=== PATIENT | female | born 1950 | race Caucasian/White ===

== ENCOUNTER 2016-06-07 03:24 | Inpatient (IN) | payer MEDICARE, OTHER ==
[2016-06-07] MEDS ORDERED: ONDANSETRON 4 MG/2 ML VIAL IVP STA (03:43)
[2016-06-07] MEDS ORDERED: SODIUM CHLORIDE 0.9% 500 ML IV STA ×2 (03:56→05:47)
[2016-06-07] MEDS ORDERED: MORPHINE SULFATE 4 MG/ML SYRINGE IV STA (03:56)
[2016-06-07] MEDS ORDERED: SODIUM CHLORIDE 0.9% 1,000 ML IV STA ×2 (03:56→05:47)
--- NOTE | 2016-06-07 04:13 | ED ---
General Adult HPI - General Chief complaint: Weakness Stated complaint: Abdominal Pain Time Seen by Provider: 06/07/16 03:40 Source: patient, RN notes reviewed, old records reviewed Mode of arrival: EMS Limitations: no limitations - History of Present Illness Initial comments: This is a 65-year-old female here for evaluation. Patient brought in by family for copious diarrhea. Patient started with significant diarrhea beginning tonight and significantly worsening. Patient was recently admitted to the hospital for pneumonia. At home and doing well, patient sore from dementia and has 2 caregivers, as well as her sister who is at bedside who is her medical decision maker. Patient herself denies any complaints no bowel pain no nausea vomiting. Is complaining of weakness not feeling well and diarrhea. - Related Data Home Medications Medication Instructions Recorded Confirmed Albuterol Sulfate [Proair Hfa] 2 puff INHALATION DIRECTED PRN 06/24/14 Loratadine [Claritin] 10 mg PO DAILY 06/24/14 03/23/16 Montelukast [Singulair] 10 mg PO HS 06/24/14 03/23/16 Omeprazole [PriLOSEC] 20 mg PO HS 06/24/14 03/23/16 Sertraline [Zoloft] 200 mg PO QAM 06/24/14 03/23/16 risperiDONE [RisperDAL] 2 mg PO HS 06/24/14 03/23/16 Donepezil [Aricept] 10 mg PO QAM 02/07/15 03/23/16 glipiZIDE [Glucotrol] 5 mg PO AC-BRKFST 02/07/15 03/23/16 Namenda Xr 1 dose PO QAM 03/21/16 03/23/16 traMADol HCL [Ultram] 50 mg PO BID 03/21/16 03/23/16 Allergies Allergy/AdvReac Type Severity Reaction Status Date / Time baclofen Allergy Unknown Psychotic Verified 06/07/16 03:45 Episode codeine Allergy Rash/Hives Verified 06/07/16 03:45 lorazepam [From Ativan] Allergy Rash/Hives Verified 06/07/16 03:45 oxaprozin [From Daypro] Allergy Rash/Hives Verified 06/07/16 03:45 Sulfa (Sulfonamide Allergy Rash/Hives Verified 06/07/16 03:45 Antibiotics) cyclobenzaprine HCl AdvReac Confusion Verified 06/07/16 03:45 [From Flexeril] Review of Systems ROS Statement: Those systems with pertinent positive or pertinent negative responses have been documented in the HPI. ROS Other: All systems not noted in ROS Statement are negative. Past Medical History Past Medical History: Asthma, Heart Failure, COPD, Dementia, Diabetes Mellitus, Deep Vein Thrombosis (DVT), GERD/Reflux, Osteoarthritis (OA), Pneumonia, Seizure Disorder, Sleep Apnea/CPAP/BIPAP Additional Past Medical History / Comment(s): diverticulosis, sleep apnea HAS CPAP,MURMUR, SEIZURES IN THE 1970'S(EPILEPSY) NO SEIZURES SINCE THE S NOT ON MEDS FOR IT ANYMORE, IBS. PAD. History of Any Multi-Drug Resistant Organisms: None Reported Past Surgical History: Adenoidectomy, Appendectomy, Bowel Resection, Cholecystectomy, Hysterectomy, Orthopedic Surgery, Tonsillectomy Additional Past Surgical History / Comment(s): partial colon resection,SILVERIO KNEE ARTHROSCOPY,SILVERIO KNEE REPLACEMENTS Past Anesthesia/Blood Transfusion Reactions: Previous Problems w/ Anesthesia, Motion Sickness Additional Past Anesthesia/Blood Transfusion Reaction / Comment(s): DIFFICULTY WAKING UP. CLAUSTERPHOBIC Past Psychological History: Anxiety, Bipolar Additional Psychological History / Comment(s): DYSLEXIA Smoking Status: Former smoker Past Alcohol Use History: None Reported Additional Past Alcohol Use History / Comment(s): STARTED SMOKNG AT AGE 16, SMOKED 1 CIG PER DAY QUIT 1982 Past Drug Use History: None Reported - Past Family History Father Family Medical History: Unable to Obtain Mother Family Medical History: Congestive Heart Failure (CHF), Dementia, Myocardial Infarction ([place]) General Exam Limitations: no limitations General appearance: alert, lethargic, in distress, obese Head exam: Present: atraumatic, normocephalic, normal inspection Eye exam: Present: normal appearance, PERRL, EOMI. Absent: scleral icterus, conjunctival injection, periorbital swelling ENT exam: Present: normal exam, mucous membranes moist Neck exam: Present: normal inspection. Absent: tenderness, meningismus, lymphadenopathy Respiratory exam: Present: normal lung sounds bilaterally. Absent: respiratory distress, wheezes, rales, rhonchi, stridor Cardiovascular Exam: Present: regular rate, normal rhythm, normal heart sounds. Absent: systolic murmur, diastolic murmur, rubs, gallop, clicks GI/Abdominal exam: Present: soft, normal bowel sounds. Absent: distended, tenderness, guarding, rebound, rigid Extremities exam: Present: normal inspection, full ROM, normal capillary refill. Absent: tenderness, pedal edema, joint swelling, calf tenderness Back exam: Present: normal inspection Neurological exam: Present: alert, oriented X3, CN II-XII intact Psychiatric exam: Present: normal affect, normal mood Skin exam: Present: warm, dry, intact, normal color. Absent: rash Course Vital Signs 06/07/16 03:41 Temperature 98.6 F Pulse Rate 68 Respiratory 16 Rate Blood Pressure 92/54 O2 Sat by Pulse 97 Oximetry - Reevaluation(s) Reevaluation #1: 06/07/16 05:49 Patient having copious diarrhea Reevaluation #2: 06/07/16 05:49 Patient denies any complaints of pain no shortness of breath or chest pain EKG Findings - EKG Comments: EKG Findings:: EKG shows normal sinus rhythm rate of 79, [place] 154, QRS 72, QTC 428 Medical Decision Making - Medical Decision Making 65 female here for evaluation of copious diarrhea, currently negative for C. diff. Patient with significant diarrhea here in the emergency room, weakness. Patient will be admitted regarding probable sepsis, started on broad-spectrum antibiotics for continued evaluation - Lab Data Result diagrams: 06/07/16 05:21 06/07/16 05:21 Lab Results 06/07/16 06/07/16 06/07/16 Range/Units 04:11 05:21 05:21 WBC 19.0 H (3.8-10.6) k/uL RBC 5.31 (3.80-5.40) m/uL Hgb 15.7 (11.4-16.0) gm/dL Hct 48.6 H (34.0-46.0) % MCV 91.5 (80.0-100.0) fL MCH 29.6 (25.0-35.0) pg MCHC 32.3 (31.0-37.0) g/dL RDW 12.7 (11.5-15.5) % Plt Count 159 (150-450) k/uL Neutrophils % (Manual) 81.0 % Band Neutrophils % 8.0 % Lymphocytes % (Manual) 4.0 % Monocytes % (Manual) 4.0 % Eosinophils % (Manual) 3.0 % Neutrophils # (Manual) 16.9 H (1.3-7.7) k/uL Lymphocytes # (Manual) 0.8 L (1.0-4.8) k/uL Monocytes # (Manual) 0.8 (0-1.0) k/uL Eosinophils # (Manual) 0.6 (0-0.7) k/uL Nucleated RBCs 0 (0-0) /100 WBC Manual Slide Review Performed PT (9.0-12.0) sec INR (<1.1) APTT (22.0-30.0) sec Sodium 143 (137-145) mmol/L Potassium 3.7 (3.5-5.1) mmol/L Chloride 110 H (98-107) mmol/L Carbon Dioxide 21 L (22-30) mmol/L Anion Gap 12 mmol/L BUN 14 (7-17) mg/dL Creatinine 0.90 (0.52-1.04) mg/dL Est GFR (MDRD) Af Amer >60 (>60 ml/min/1.73 sqM) Est GFR (MDRD) Non-Af >60 (>60 ml/min/1.73 sqM) Glucose 144 H (74-99) mg/dL Plasma Lactic Acid Artie (0.7-2.0) mmol/L Calcium 8.4 (8.4-10.2) mg/dL Phosphorus 3.9 (2.5-4.5) mg/dL Magnesium 1.6 (1.6-2.3) mg/dL Total Bilirubin 0.3 (0.2-1.3) mg/dL AST 21 (14-36) U/L ALT 38 (9-52) U/L Alkaline Phosphatase 145 H (38-126) U/L Total Creatine Kinase (30-135) U/L CK-MB (CK-2) (0.0-2.4) ng/mL CK-MB (CK-2) Rel Index Troponin I (0.000-0.034) ng/mL Total Protein 6.0 L (6.3-8.2) g/dL Albumin 3.5 (3.5-5.0) g/dL C. difficile (EIA) Intrp Negative (Negative) 06/07/16 06/07/16 06/07/16 Range/Units 05:30 05:30 05:30 WBC (3.8-10.6) k/uL RBC (3.80-5.40) m/uL Hgb (11.4-16.0) gm/dL Hct (34.0-46.0) % MCV (80.0-100.0) fL MCH (25.0-35.0) pg MCHC (31.0-37.0) g/dL RDW (11.5-15.5) % Plt Count (150-450) k/uL Neutrophils % (Manual) % Band Neutrophils % % Lymphocytes % (Manual) % Monocytes % (Manual) % Eosinophils % (Manual) % Neutrophils # (Manual) (1.3-7.7) k/uL Lymphocytes # (Manual) (1.0-4.8) k/uL Monocytes # (Manual) (0-1.0) k/uL Eosinophils # (Manual) (0-0.7) k/uL Nucleated RBCs (0-0) /100 WBC Manual Slide Review PT 10.3 (9.0-12.0) sec INR 1.0 (<1.1) APTT 26.1 (22.0-30.0) sec Sodium (137-145) mmol/L Potassium (3.5-5.1) mmol/L Chloride (98-107) mmol/L Carbon Dioxide (22-30) mmol/L Anion Gap mmol/L BUN (7-17) mg/dL Creatinine (0.52-1.04) mg/dL Est GFR (MDRD) Af Amer (>60 ml/min/1.73 sqM) Est GFR (MDRD) Non-Af (>60 ml/min/1.73 sqM) Glucose (74-99) mg/dL Plasma Lactic Acid Artie 0.8 (0.7-2.0) mmol/L Calcium (8.4-10.2) mg/dL Phosphorus (2.5-4.5) mg/dL Magnesium (1.6-2.3) mg/dL Total Bilirubin (0.2-1.3) mg/dL AST (14-36) U/L ALT (9-52) U/L Alkaline Phosphatase (38-126) U/L Total Creatine Kinase 50 (30-135) U/L CK-MB (CK-2) 0.9 (0.0-2.4) ng/mL CK-MB (CK-2) Rel Index 1.8 Troponin I <0.012 (0.000-0.034) ng/mL Total Protein (6.3-8.2) g/dL Albumin (3.5-5.0) g/dL C. difficile (EIA) Intrp (Negative) - Radiology Data Radiology results: report reviewed (X-ray abdominal series with chest is pending ), image reviewed Critical Care Time Critical Care Time: Yes Total Critical Care Time: 31 Disposition Clinical Impression: Altered mental status, Dehydration, Diarrhea, Sepsis Disposition: ADMITTED IP TO THIS [facility] Condition: Serious Referrals: Jerry Golden DO [Primary Care Provider] - 1-2 days
[2016-06-07 05:29] LABS: CH 29.1; CHCM 31.9; HCT 48.6 % (34.0-46.0); HDW 2.46; HGB 15.7 gm/dL (11.4-16.0); Immature Gran Flag Slight; MCH 29.6 pg (25.0-35.0); MCHC 32.3 g/dL (31.0-37.0); MCV 91.5 fL (80.0-100.0); Mean Platelet Volume 6.8; RBC 5.31 m/uL (3.80-5.40); RDW 12.7 % (11.5-15.5); WBC (Perox) 19.43
[2016-06-07 05:41] LABS: Add Differential Manual Differential
[2016-06-07 05:43] LABS: Nucleated Red Blood Cells 0 /100 WBC (0-0); Total Cells Counted 100
[2016-06-07 05:44] LABS: Manual Review Performed
[2016-06-07] MEDS ORDERED: IV VANCOMYCIN PER PHARMACY 1 EACH MISC MISCELLANE PRN ×2 (05:47→06:38)
[2016-06-07] MEDS ORDERED: PIPERACILLIN-TAZOBACTAM 3.375 GM in DEXTROSE/WATER 1 50ML.BAG IVPB STA (05:47)
[2016-06-07] MEDS ORDERED: SODIUM CHLORIDE 0.9% 2,000 ML IV STA (05:47)
[2016-06-07 05:51] LABS: Partial Thromboplastin Time 26.1 sec (22.0-30.0); Prothrombin Time 10.3 sec (9.0-12.0)
[2016-06-07 05:54] LABS: ALT 38 U/L (9-52); AST 21 U/L (14-36); Alkaline Phosphatase 145 U/L (38-126); Anion Gap 12 mmol/L; Blood Urea Nitrogen 14 mg/dL (7-17); Calcium 8.4 mg/dL (8.4-10.2); Carbon Dioxide 21 mmol/L (22-30); Chloride 110 mmol/L (98-107); Glucose 144 mg/dL (74-99); Magnesium 1.6 mg/dL (1.6-2.3); Non-African American GFR(MDRD) >60 (>60 ml/min/1.73 sqM); Phosphorous 3.9 mg/dL (2.5-4.5); Potassium 3.7 mmol/L (3.5-5.1); Sodium 143 mmol/L (137-145); Total Bilirubin 0.3 mg/dL (0.2-1.3)
[2016-06-07 06:05] LABS: Creatine Kinase 50 U/L (30-135)
[2016-06-07] MEDS ORDERED: VANCOMYCIN 1,500 MG in SODIUM CHLORIDE 0.9% 250 ML IVPB STA (06:16)
[2016-06-07 06:18] LABS: Creatine Kinase MB 0.9 ng/mL (0.0-2.4); Troponin I <0.012 ng/mL (0.000-0.034)
--- NOTE | 2016-06-07 06:54 | XR ---
EXAMINATION TYPE: XR abdomen acute w cxr DATE OF EXAM: 06/07/2016 6:39 AM COMPARISON: Chest x-rays 02/07/2015 HISTORY: Pain vomiting diarrhea TECHNIQUE: Single view of the chest and 2 views of the abdomen are submitted. FINDINGS: Single frontal view of the chest is revealed mild pulmonary vascular congestion. Chronic lung changes are suggested. No focal pneumonia pneumothorax or pleural effusion is noted. There is mild cardiomeg josefa. 2 radiographs of abdomen in upright and supine position showed no definite pneumoperitoneum. There is moderate gaseous distention of bowel loops in the abdomen and pelvis. Surgical clips are not ed superimposing the abdomen and pelvis with a hernia surgery changes. No unusual calcifications. IMPRESSION: 1. No active lung infiltrates. There is mild pulmonary vascular congestion. 2. No significant bowel obstruction is noted.
[2016-06-07 07:28] LABS: Appearance,Urine Clear (Clear); Bilirubin,Urine Negative (Negative); Glucose,Urine (UA) Negative (Negative); Ketones,Urine Negative (Negative); Leukocyte Esterase,Urine Negative (Negative); Nitrite,Urine Negative (Negative); Protein,Urine Negative (Negative); Specific Gravity,Urine 1.004 (1.001-1.035); UA Billing (MACRO vs. MICRO) CHEM; Urobilinogen,Urine <2.0 mg/dL (<2.0)
[2016-06-07] MEDS ORDERED: ALBUTEROL NEBULIZED 2.5 MG/3 ML INHALATION PRN (08:35)
[2016-06-07] MEDS: SODIUM CHLORIDE 0.9% 1,000 ML IV SCH ×3 (10:33→17:04)
[2016-06-07] MEDS: DONEPEZIL 10 MG TAB PO SCH (10:34)
[2016-06-07] MEDS: ENOXAPARIN 40 MG/0.4 ML SYRINGE SQ SCH (10:35)
[2016-06-07] MEDS: PANTOPRAZOLE 40 MG/10 ML VIAL IV SCH (10:35)
[2016-06-07] MEDS: MEMANTINE 10 MG TAB PO SCH ×2 (10:35→20:18)
[2016-06-07] MEDS: SERTRALINE 100 MG TAB PO SCH (10:35)
[2016-06-07] MEDS: traMADol 50 MG TAB PO SCH ×2 (10:49→20:18)
[2016-06-07 12:35] LABS: Glucose,Whole Blood 98 mg/dL (75-99)
--- NOTE | 2016-06-07 14:07 | P.HPIM ---
History of Present Illness H&P Date: 06/07/16 Chief Complaint: Diarrhea Patient is a 65-year-old female, patient of Dr. Jerry Golden in the outpatient setting with complex medical history noted below significant for recent pneumonia. Patient does have a history of dementia and is a questionable historian. Patient presented to the emergency department with complaints of copious amounts of diarrhea 1 day and evidence of dehydration. Patient states that she was going to the bathroom when she passed out. Patient denies recent chills, fevers, nausea, vomiting, shortness of breath, chest pain , or abdominal pain. Patient denies change in diet or new medications. Abdominal x-ray with chest x-ray shows mild pulmonary vascular congestion with no active lung infiltrate; no significant bowel obstruction. Labs on admission : WBC 19, hematocrit 48.6, C. difficile negative. Admission vitals temperature 98.6, heart rate 68, respiratory rate 16, blood pressure 92/54, oxygen saturation 97% on room air. In the emergency department, patient was fluid resuscitated with 4 L of normal saline, started on IV antibiotics for empiric coverage, and admitted to the general medical floor. Upon examination, patient is lying in bed. Patient states she is tired. Denies chills, fevers, shortness of breath, chest pain, or abdominal pain. Patient complains of rectal discomfort from fecal management system. An indwelling Casarez catheter has been inserted with adequate urine output. Blood pressure this morning 128/ 60. Past Medical History Past Medical History: Asthma, Heart Failure, COPD, Dementia, Diabetes Mellitus, Deep Vein Thrombosis (DVT), GERD/Reflux, Hyperlipidemia, Myocardial Infarction ( [place]), Osteoarthritis (OA), Pneumonia, Renal Disease, Seizure Disorder, Sleep Apnea/CPAP/BIPAP, Vascular Disorder Additional Past Medical History / Comment(s): Recent pneumonia and past pneumonia, diverticulosis, sleep apnea HAS CPAP,MURMUR, SEIZURES IN THE 1969'S( EPILEPSY) NO SEIZURES SINCE 1974- NOT ON MEDS FOR IT ANYMORE, IBS, PAD, TMJ, anemia, nephrolithiasis, stomach ulcer, ESTEFANY-has CPAP but pulls off at times, as child has needle in her head. Last Myocardial Infarction Date:: 1991 History of Any Multi-Drug Resistant Organisms: None Reported Past Surgical History: Adenoidectomy, Appendectomy, Bowel Resection, Cholecystectomy, Hernia Repair, Hysterectomy, Orthopedic Surgery, Tonsillectomy Additional Past Surgical History / Comment(s): partial colon resection with colostomy then reversal, SILVERIO KNEE ARTHROSCOPY,Right KNEE REPLACEMENT, EGDs and colonoscopies, lipomas off back, cyst off spine. Past Anesthesia/Blood Transfusion Reactions: Previous Problems w/ Anesthesia, Motion Sickness Additional Past Anesthesia/Blood Transfusion Reaction / Comment(s): DIFFICULTY WAKING UP. CLAUSTERPHOBIC Past Psychological History: Anxiety, Bipolar Additional Psychological History / Comment(s): DYSLEXIA but is able to read and write with some difficulty. Pt resides with her sisters, Reny who is also her legal guardian and Michelle. They are her caretakers. Pt uses a walker to ambulate. She does not drive, Michelle takes her to [employer]. Smoking Status: Former smoker Past Alcohol Use History: None Reported Additional Past Alcohol Use History / Comment(s): STARTED SMOKNG AT AGE 16, SMOKED 1 CIG PER DAY QUIT 1982 Past Drug Use History: None Reported - Past Family History Father Family Medical History: Cancer Additional Family Medical History / Comment(s): Father had lung cancer. Mother Family Medical History: Congestive Heart Failure (CHF), Dementia, Myocardial Infarction ([place]) Medications and Allergies Home Medications Medication Instructions Recorded Confirmed Type Albuterol Sulfate [Proair Hfa] 2 puff INHALATION RT-Q4H PRN 06/24/14 06/07/16 History Sertraline [Zoloft] 200 mg PO QAM 06/24/14 06/07/16 History risperiDONE [RisperDAL] 2 mg PO HS 06/24/14 06/07/16 History Donepezil [Aricept] 10 mg PO QAM 02/07/15 06/07/16 History traMADol HCL [Ultram] 50 mg PO BID 03/21/16 06/07/16 History Atorvastatin [Lipitor] 10 mg PO HS 06/07/16 06/07/16 History Ibuprofen [Motrin] 800 mg PO Q8HR PRN 06/07/16 06/07/16 History Memantine HCl [Namenda Xr] 28 mg PO DAILY 06/07/16 06/07/16 History Mirtazapine [Remeron] 15 mg PO HS 06/07/16 06/07/16 History Allergies Allergy/AdvReac Type Severity Reaction Status Date / Time baclofen Allergy Unknown Psychotic Verified 06/07/16 03:45 Episode codeine Allergy Rash/Hives Verified 06/07/16 03:45 lorazepam [From Ativan] Allergy Rash/Hives Verified 06/07/16 03:45 oxaprozin [From Daypro] Allergy Rash/Hives Verified 06/07/16 03:45 Sulfa (Sulfonamide Allergy Rash/Hives Verified 06/07/16 03:45 Antibiotics) cyclobenzaprine HCl AdvReac Confusion Verified 06/07/16 03:45 [From Flexeril] Physical Exam Vitals: Vital Signs Temp Pulse Resp BP Pulse Ox 06/07/16 08:29 98.7 F 83 20 128/60 95 Intake and Output 06/06/16 06/07/16 06/07/16 22:59 06:59 14:59 Output Total 900 Balance -900 Output: Urine 900 Uretheral (Casarez) 500 Other: Voiding Method Indwelling Catheter GENERAL: Pt awake and alert, well-nourished, and in no acute distress. HEAD: Atraumatic, normocephalic. EYES: Pupils equal and round. Sclera anicteric, conjunctiva are normal. ENT: Moist mucous membranes. NECK:Supple without lymphadenopathy or JVD. LUNGS: Breath sounds clear to auscultation bilaterally. No wheezes, rales, or rhonchi. HEART: Heart S1, S2, no S3 or S4. Regular rate and rhythm. No murmurs, rubs or gallops. ABDOMEN: Soft, obese, nontender, nondistended, normoactive bowel sounds. No guarding, no rebound. No masses or organomegaly appreciated. EXTREMITIES: 2+ peripheral pulses. No edema. No calf tenderness. NEUROLOGICAL: Pt oriented x 3. Cranial nerves II through XII grossly intact. Strength and sensation grossly intact. PSYCH: Normal mood, normal affect. SKIN: Warm, dry, intact. Normal turgor. No rashes or lesions. Results CBC & Chem 7: 06/07/16 05:21 06/07/16 05:21 Labs: Microbiology - Last 24 Hours (Table) 06/07/16 07:10 Urine Culture - Preliminary Urine,Catheterized Thrombosis Risk Factor Assmnt - DVT/VTE Prophylaxis DVT/VTE Prophylaxis: Pharmacologic Prophylaxis ordered, Mechanical Prophylaxis ordered - Choose All That Apply Any of the Below Risk Factors Present?: Yes Each Factor Represents 1 point: Abnormal pulmonary function (COPD), Obesity ( BMI >25), Sepsis (< 1month) Other Risk Factors: Yes Each Risk Factor Represents 2 Points: Age 61-74 years Other congenital or acquired thrombophilia - If yes, enter type in comment: No Thrombosis Risk Factor Assessment Total Risk Factor Score: 5 Thrombosis Risk Factor Assessment Level: High Risk Assessment and Plan Plan: Impression and plan: 1. Sepsis with hypovolemic shock and possible syncope secondary to dehydration secondary to enteritis, possible viral or bacterial. C. diff negative. Patient placed on broad-spectrum empiric antibiotics in the form of IV Zosyn and IV vancomycin. Continue IV hydration. We'll keep patient on clear liquid diet today. Continue supportive treatment and pain management. 2. History of asthma. Continue albuterol when necessary. 3. History of heart failure, type unknown. 4. History of dementia. Continue Aricept and Namenda. 5. Diabetes mellitus type 2. 6. History of GERD. 7. History of hyperlipidemia. Continue Lipitor. 8. History of coronary artery disease with myocardial infarction. 9. History of osteoarthritis, multiple joints. Continue tramadol. 10. History of recent pneumonia. 11. History of renal insufficiency. 12. History of seizure disorders. 13. History of obstructive sleep apnea with CPAP at home. 14. History of diverticulosis. 15. History of irritable bowel syndrome. 16. History of peripheral arterial disease. 17. History of nephrolithiasis. 18. History of partial bowel resection with colostomy and reversal.. 19. History of cholecystectomy. 20. History of anxiety and bipolar, stable. Continue Risperdal Zoloft. 21. History of gait dysfunction. PTOT consult. Fall precautions. 22. GI and DVT prophylaxis. Continue Protonix and Lovenox. 23. Repeat CBC and CMP in a.m. The above impression and plan have been discussed and directed by Dr. Golden. Mercedes CHURCH acting as scribe for Dr. Golden.
[2016-06-07] MEDS ORDERED: LOPERAMIDE 2 MG CAP PO PRN (14:09)
[2016-06-07 15:31] VITALS: RESP 16
[2016-06-07] MEDS: PIPERACILLIN-TAZOBACTAM 3.375 GM in DEXTROSE/WATER 1 50ML.BAG IVPB SCH (17:03)
[2016-06-07 17:24] LABS: Glucose,Whole Blood 79 mg/dL (75-99)
[2016-06-07] MEDS ORDERED: VANCOMYCIN 1,500 MG in SODIUM CHLORIDE 0.9% 250 ML IVPB SCH (18:00)
[2016-06-07 19:00] LABS: Creatine Kinase 41 U/L (30-135)
[2016-06-07 19:12] LABS: Creatine Kinase MB 1.4 ng/mL (0.0-2.4); Troponin I <0.012 ng/mL (0.000-0.034)
[2016-06-07] MEDS ORDERED: ATORVASTATIN 10 MG TAB PO SCH (21:00)
[2016-06-07] MEDS ORDERED: MIRTAZAPINE 15 MG TAB PO SCH (21:00)
[2016-06-07] MEDS ORDERED: risperiDONE 2 MG TAB PO SCH (21:00)
[2016-06-07 21:24] LABS: Glucose,Whole Blood 99 mg/dL (75-99)
[2016-06-07] MEDS: VANCOMYCIN 1,500 MG in SODIUM CHLORIDE 0.9% 250 ML IVPB SCH (21:27)
[2016-06-08] MEDS: PIPERACILLIN-TAZOBACTAM 3.375 GM in DEXTROSE/WATER 1 50ML.BAG IVPB SCH ×2 (00:24→07:47)
[2016-06-08] MEDS: SODIUM CHLORIDE 0.9% 1,000 ML IV SCH ×4 (00:26→14:11)
[2016-06-08 07:21] LABS: Glucose,Whole Blood 82 mg/dL (75-99)
[2016-06-08 07:55] VITALS: BP 127/77; PULSE 55; TEMP 98.3
[2016-06-08] MEDS: ENOXAPARIN 40 MG/0.4 ML SYRINGE SQ SCH (08:10)
[2016-06-08] MEDS: SERTRALINE 100 MG TAB PO SCH (08:10)
[2016-06-08] MEDS: DONEPEZIL 10 MG TAB PO SCH (08:10)
[2016-06-08] MEDS: PANTOPRAZOLE 40 MG/10 ML VIAL IV SCH (08:10)
[2016-06-08] MEDS: MEMANTINE 10 MG TAB PO SCH (08:10)
[2016-06-08] MEDS: traMADol 50 MG TAB PO SCH (08:11)
[2016-06-08 09:22] LABS: Basophils % (A) 0 %; CHCM 31.7; Eosinophils # (A) 0.2 k/uL (0-0.7); Eosinophils % (A) 3 %; HCT 34.5 % (34.0-46.0); HDW 2.44; Luc # (Auto) 0.07; Luc % (Auto) 1; Lymphocytes # (A) 1.1 k/uL (1.0-4.8); Lymphocytes % (A) 16 %; MCH 29.7 pg (25.0-35.0); MCHC 32.3 g/dL (31.0-37.0); MCV 91.9 fL (80.0-100.0); Mean Platelet Volume 6.8; Monocytes # (A) 0.3 k/uL (0-1.0); Monocytes % (A) 5 %; Neutrophils # (A) 5.1 k/uL (1.3-7.7); Neutrophils % (A) 74 %; RBC 3.75 m/uL (3.80-5.40); WBC 6.9 k/uL (3.8-10.6); WBC (Perox) 7.57
[2016-06-08 09:25] LABS: HGB 11.1 gm/dL (11.4-16.0)
[2016-06-08 09:42] LABS: ALT 32 U/L (9-52); AST 19 U/L (14-36); Alkaline Phosphatase 100 U/L (38-126); Anion Gap 10 mmol/L; Blood Urea Nitrogen 7 mg/dL (7-17); Calcium 7.6 mg/dL (8.4-10.2); Carbon Dioxide 20 mmol/L (22-30); Chloride 116 mmol/L (98-107); Glucose 85 mg/dL (74-99); Non-African American GFR(MDRD) >60 (>60 ml/min/1.73 sqM); Sodium 146 mmol/L (137-145); Total Bilirubin 0.4 mg/dL (0.2-1.3); Total Protein 4.7 g/dL (6.3-8.2)
[2016-06-08] MEDS: VANCOMYCIN 1,500 MG in SODIUM CHLORIDE 0.9% 250 ML IVPB SCH (11:54)
[2016-06-08 12:45] LABS: Glucose,Whole Blood 83 mg/dL (75-99)
--- NOTE | 2016-06-08 19:07 | P.DS ---
Providers Date of admission: 06/07/16 06:38 Expected date of discharge: 06/08/16 Attending physician: Jerry Golden Primary care physician: Jerry Golden [facility] Course: remigio is a 65-year-old female, patient of Dr. Jerry Golden in the outpatient setting with complex medical history significant for recent pneumonia and dementia. Patient presented to the emergency department with complaints of copious amounts of diarrhea 1 day, questionable syncope, and evidence of dehydration. No history of chills, fevers, nausea, vomiting, shortness of breath, chest pain, or abdominal pain. No changes in diet or new medications. Abdominal x-ray with chest x-ray shows mild pulmonary vascular congestion with no active lung infiltrate; no significant bowel obstruction. Labs on admission: WBC 19, hematocrit 48.6, C. difficile negative. Admission vitals temperature 98.6, heart rate 68, respiratory rate 16, blood pressure 92/ 54, oxygen saturation 97% on room air. In the emergency department, patient was fluid resuscitated with 4 L of normal saline, started on IV antibiotics for empiric coverage, and admitted to the general medical floor. Patient improved significantly with IV hydration and empiric antibiotics and was able to tolerate a soft diet prior to admission. Patient was felt stable for discharge to home with follow-up in the outpatient setting. Discharge diagnoses: 1. Sepsis with hypovolemic shock and possible syncope secondary to dehydration secondary to enteritis, possible viral or bacterial. C. diff negative. 2. History of asthma. 3. History of heart failure, type unknown. 4. History of dementia. 5. Diabetes mellitus type 2. 6. History of GERD. 7. History of hyperlipidemia. 8. History of coronary artery disease with myocardial infarction. 9. History of osteoarthritis, multiple joints. 10. History of recent pneumonia. 11. History of renal insufficiency. 12. History of seizure disorders. 13. History of obstructive sleep apnea with CPAP at home. 14. History of diverticulosis. 15. History of irritable bowel syndrome. 16. History of peripheral arterial disease. 17. History of nephrolithiasis. 18. History of partial bowel resection with colostomy and reversal.. 19. History of cholecystectomy. 20. History of anxiety and bipolar, stable. 21. History of gait dysfunction. The above impression and plan have been discussed and directed by Dr. Golden. Mercedes CHURCH acting as scribe for Dr. Golden. Pertinent Studies: EKG; acute abdomen series Patient Condition at Discharge: Good Plan - Discharge Summary New Discharge Prescriptions: metroNIDAZOLE [Flagyl] 500 mg PO TID #21 tab Discharge Medication List Albuterol Sulfate [Proair Hfa] 2 puff INHALATION RT-Q4H PRN 06/24/14 [History] Sertraline [Zoloft] 200 mg PO QAM 06/24/14 [History] risperiDONE [RisperDAL] 2 mg PO HS 06/24/14 [History] Donepezil [Aricept] 10 mg PO QAM 02/07/15 [History] traMADol HCL [Ultram] 50 mg PO BID 03/21/16 [History] Atorvastatin [Lipitor] 10 mg PO HS 06/07/16 [History] Ibuprofen [Motrin] 800 mg PO Q8HR PRN 06/07/16 [History] Memantine HCl [Namenda Xr] 28 mg PO DAILY 06/07/16 [History] Mirtazapine [Remeron] 15 mg PO HS 06/07/16 [History] metroNIDAZOLE [Flagyl] 500 mg PO TID #21 tab 06/08/16 [Rx] Follow up Appointment(s)/Referral(s): Jerry Golden DO [Primary Care Provider] - 06/12/16 3:50 pm Patient Instructions/Handouts: Heart Failure ([place]), Type 2 Diabetes in Adults ( [place]), Enteritis ([place]) Discharge Disposition: HOME SELF-CARE
[2016-06-09] MEDS ORDERED: VANCOMYCIN TROUGH DUE 1 EACH MISC MISCELLANE ONE (09:00)
== END 2016-06-08 14:23 | disposition home or self-care (01) | DRG 871 ==
LOC: EC 03:24 → 4MS4W 06:38
PROVIDERS: ADMIT Family Medicine; ATTEND Family Medicine
PROC: 0T9B70Z Drainage of Bladder with Drainage Device, Via Natural or Artificial Opening (ICD-10-PCS; principal; 2016-06-07)
DX: A41.9 Sepsis, unspecified organism (principal); R57.1 Hypovolemic shock; G47.33 Obstructive sleep apnea (adult) (pediatric); F03.90 Unspecified dementia, unspecified severity, without behavioral disturbance, psychotic disturbance, mood disturbance, and anxiety; K21.9 Gastro-esophageal reflux disease without esophagitis; K58.0 Irritable bowel syndrome with diarrhea; J44.9 Chronic obstructive pulmonary disease, unspecified; E11.51 Type 2 diabetes mellitus with diabetic peripheral angiopathy without gangrene; I25.10 Atherosclerotic heart disease of native coronary artery without angina pectoris; I50.9 Heart failure, unspecified; K57.90 Diverticulosis of intestine, part unspecified, without perforation or abscess without bleeding; F31.9 Bipolar disorder, unspecified; K62.89 Other specified diseases of anus and rectum; D64.9 Anemia, unspecified; J45.909 Unspecified asthma, uncomplicated; I25.2 Old myocardial infarction; E78.5 Hyperlipidemia, unspecified; M26.609 Unspecified temporomandibular joint disorder, unspecified side; R55 Syncope and collapse; R01.1 Cardiac murmur, unspecified; R53.1 Weakness; I73.9 Peripheral vascular disease, unspecified; F41.9 Anxiety disorder, unspecified; R26.9 Unspecified abnormalities of gait and mobility; R48.0 Dyslexia and alexia; M15.9 Polyosteoarthritis, unspecified; R41.82 Altered mental status, unspecified; Z81.8 Family history of other mental and behavioral disorders; Z90.710 Acquired absence of both cervix and uterus; Z87.448 Personal history of other diseases of urinary system; Z86.718 Personal history of other venous thrombosis and embolism; Z87.11 Personal history of peptic ulcer disease; Z96.653 Presence of artificial knee joint, bilateral; Z88.6 Allergy status to analgesic agent; Z88.5 Allergy status to narcotic agent; Z88.2 Allergy status to sulfonamides; Z90.49 Acquired absence of other specified parts of digestive tract; Z87.442 Personal history of urinary calculi; Z87.01 Personal history of pneumonia (recurrent); Z82.49 Family history of ischemic heart disease and other diseases of the circulatory system; Z80.1 Family history of malignant neoplasm of trachea, bronchus and lung; Z87.891 Personal history of nicotine dependence; Z88.8 Allergy status to other drugs, medicaments and biological substances; Z79.891 Long term (current) use of opiate analgesic; Z79.899 Other long term (current) drug therapy; Z86.69 Personal history of other diseases of the nervous system and sense organs
CPT/HCPCS: 36415; 74022; 80053; 80299; 81003; 82533; 82550; 82553; 83605; 83735; 84100; 84484; 85025; 85610; 85730; 87086; 93005; 96361; 96365; 96375; 99291

== ENCOUNTER 2016-06-28 09:36 | Inpatient (IN) | payer MEDICARE, OTHER ==
--- NOTE | 2016-06-28 10:10 | ED ---
General Adult HPI - General Chief complaint: Recheck/Abnormal Lab/Rx Stated complaint: poss dehydration Time Seen by Provider: 06/28/16 10:00 Source: patient, family, RN notes reviewed Mode of arrival: wheelchair Limitations: altered mental status - History of Present Illness Initial comments: 66 year old female presenting for increased confusion and cough and congestion. Patient's sister and primary guardian states that she was recently admitted to the hospital for dehydration for several days and discharge about 2 weeks ago. She states since that time she has not seemed to bounce back to her normal self. She seemed more confused. She was unable to feed herself this morning which is not normal for her. She does have a history of Alzheimer's but appears to be more confused than normal. Sister states that she has had a cough which appears nonproductive. She did have some subjective fevers and chills last evening. - Related Data Home Medications Medication Instructions Recorded Confirmed Albuterol Sulfate [Proair Hfa] 2 puff INHALATION RT-Q4H PRN 06/24/14 06/28/16 Sertraline [Zoloft] 200 mg PO QAM 06/24/14 06/28/16 risperiDONE [RisperDAL] 2 mg PO HS 06/24/14 06/28/16 Donepezil [Aricept] 10 mg PO QAM 02/07/15 06/28/16 traMADol HCL [Ultram] 50 mg PO BID 03/21/16 06/28/16 Famotidine 20 mg PO DAILY 06/28/16 06/28/16 Loratadine [Loratadine] 10 mg PO DAILY 06/28/16 06/28/16 Montelukast Sodium [Singulair] 10 mg PO HS 06/28/16 06/28/16 Omeprazole [PriLOSEC] 20 mg PO HS 06/28/16 06/28/16 glipiZIDE [Glucotrol] 10 mg PO AC-BRKFST 06/28/16 06/28/16 Allergies Allergy/AdvReac Type Severity Reaction Status Date / Time baclofen Allergy Unknown Psychotic Verified 06/28/16 09:53 Episode codeine Allergy Rash/Hives Verified 06/28/16 09:53 lorazepam [From Ativan] Allergy Rash/Hives Verified 06/28/16 09:53 oxaprozin [From Daypro] Allergy Rash/Hives Verified 06/28/16 09:53 Sulfa (Sulfonamide Allergy Rash/Hives Verified 06/28/16 09:53 Antibiotics) cyclobenzaprine HCl AdvReac Confusion Verified 06/28/16 09:53 [From Flexeril] Review of Systems ROS Statement: Those systems with pertinent positive or pertinent negative responses have been documented in the HPI. ROS Other: All systems not noted in ROS Statement are negative. Past Medical History Past Medical History: Asthma, Heart Failure, COPD, Dementia, Diabetes Mellitus, Deep Vein Thrombosis (DVT), GERD/Reflux, Hyperlipidemia, Myocardial Infarction ( [place]), Osteoarthritis (OA), Pneumonia, Renal Disease, Seizure Disorder, Sleep Apnea/CPAP/BIPAP, Vascular Disorder Additional Past Medical History / Comment(s): Recent pneumonia and past pneumonia, diverticulosis, sleep apnea HAS CPAP,MURMUR, SEIZURES IN THE 1969'S( EPILEPSY) NO SEIZURES SINCE 1974- NOT ON MEDS FOR IT ANYMORE, IBS, PAD, TMJ, anemia, nephrolithiasis, stomach ulcer, ESTEFANY-has CPAP but pulls off at times, as child has needle in her head. Last Myocardial Infarction Date:: 1991 History of Any Multi-Drug Resistant Organisms: None Reported Past Surgical History: Adenoidectomy, Appendectomy, Bowel Resection, Cholecystectomy, Hernia Repair, Hysterectomy, Orthopedic Surgery, Tonsillectomy Additional Past Surgical History / Comment(s): partial colon resection with colostomy then reversal, SILVERIO KNEE ARTHROSCOPY,Right KNEE REPLACEMENT, EGDs and colonoscopies, lipomas off back, cyst off spine. Past Anesthesia/Blood Transfusion Reactions: Previous Problems w/ Anesthesia, Motion Sickness Additional Past Anesthesia/Blood Transfusion Reaction / Comment(s): DIFFICULTY WAKING UP. CLAUSTERPHOBIC Past Psychological History: Anxiety, Bipolar Additional Psychological History / Comment(s): DYSLEXIA but is able to read and write with some difficulty. Pt resides with her sisters, Reny who is also her legal guardian and Michelle. They are her caretakers. Pt uses a walker to ambulate. She does not drive, Michelle takes her to appts. Smoking Status: Former smoker Past Alcohol Use History: None Reported Additional Past Alcohol Use History / Comment(s): STARTED SMOKNG AT AGE 16, SMOKED 1 CIG PER DAY QUIT 1982 Past Drug Use History: None Reported - Past Family History Father Family Medical History: Cancer Additional Family Medical History / Comment(s): Father had lung cancer. Mother Family Medical History: Congestive Heart Failure (CHF), Dementia, Myocardial Infarction ([place]) General Exam - General Exam Comments Initial Comments: General: Awake and Alert. No acute distress. Does not appear acutely ill. Eyes: ALICIA, EOM intact. No nystagmus. No scleral icterus. HENT: Atraumatic, normocephalic. Mucous membranes moist. Trachea midline. Neck: The neck is supple, there is no tenderness or JVD. Cardiovascular: Regular rate and rhythm. No murmur, rub, or gallop is appreciated. Distal pulses intact. Respiratory: Lungs are clear to auscultation bilaterally. Positive rhonchi bilaterally. Mildly diminished lung sounds throughout. No respiratory distress. Gastrointestinal: Soft, Nontender. No rebound or guarding. Non-distended. No masses or organomegaly noted. No CVA tenderness. Musculoskeletal: No tenderness. Normal ROM. No gross deformity. No strength deficits. Neurological: A&Ox1, but follows commands without issue. CN II-XII grossly intact, There are no obvious motor or sensory deficits. Coordination appears grossly intact. Speech is normal. Skin: Skin is warm and dry and no rashes or lesions are noted. Psychiatric: Cooperative, appropriate mood & affect, normal judgment. Limitations: altered mental status Course Vital Signs 06/28/16 06/28/16 06/28/16 09:50 11:30 11:39 Temperature 97.8 F 97.3 F L Pulse Rate 94 74 Respiratory 20 16 Rate Blood Pressure 117/65 97/62 O2 Sat by Pulse 98 89 L 97 Oximetry 06/28/16 06/28/16 06/28/16 12:25 12:35 13:14 Temperature Pulse Rate 92 92 81 Respiratory Rate Blood Pressure O2 Sat by Pulse Oximetry 06/28/16 06/28/16 06/28/16 13:28 13:33 14:03 Temperature Pulse Rate 84 80 778 H Respiratory 16 16 Rate Blood Pressure 110/53 108/52 O2 Sat by Pulse 93 L 91 L Oximetry 06/28/16 06/28/16 14:33 15:11 Temperature 97.4 F L Pulse Rate 76 78 Respiratory 16 16 Rate Blood Pressure 112/55 118/58 O2 Sat by Pulse 99 97 Oximetry EKG Findings - EKG Comments: EKG Findings:: 10:35. Normal sinus rhythm. Rate 75. FL 168. QRS 78. QT/QTC 368/410. Normal axis. No STEMI. Normal EKG. Medical Decision Making - Medical Decision Making 66-year-old female presenting for cough and shortness breath. Also with some altered mental status per the caregiver. Lab workup is grossly unremarkable. Influenza negative. UA without evidence of infection. Chest x-ray with evidence of RAD. However patient does have persistent hypoxia on RA at rest down to 88% . She does not normally use oxygen at home. Given these findings, this is concerning for reactive airway disease and setting bronchitis versus pneumonia. Given her recent hospitalization she is at high risk for HCAP. Patient was started on antibiotics in the ED. Plan for admission for further evaluation and treatment. Call discuss with Dr. Golden he is agreeable with plan for admission. Requests consult pulmonology. Per records patient is seen Dr. Jaramillo previously. - Lab Data Result diagrams: 06/28/16 11:30 06/28/16 11:30 Lab Results 06/28/16 06/28/16 06/28/16 Range/Units 11:30 11:30 11:30 WBC 5.8 (3.8-10.6) k/uL RBC 4.62 (3.80-5.40) m/uL Hgb 13.6 (11.4-16.0) gm/dL Hct 41.1 (34.0-46.0) % MCV 89.0 (80.0-100.0) fL MCH 29.4 (25.0-35.0) pg MCHC 33.1 (31.0-37.0) g/dL RDW 12.9 (11.5-15.5) % Plt Count 167 (150-450) k/uL Neutrophils % 80 % Lymphocytes % 9 % Monocytes % 8 % Eosinophils % 2 % Basophils % 1 % Neutrophils # 4.6 (1.3-7.7) k/uL Lymphocytes # 0.5 L (1.0-4.8) k/uL Monocytes # 0.4 (0-1.0) k/uL Eosinophils # 0.1 (0-0.7) k/uL Basophils # 0.1 (0-0.2) k/uL Sodium 144 (137-145) mmol/L Potassium 4.4 (3.5-5.1) mmol/L Chloride 107 (98-107) mmol/L Carbon Dioxide 25 (22-30) mmol/L Anion Gap 12 mmol/L BUN 18 H (7-17) mg/dL Creatinine 0.95 (0.52-1.04) mg/dL Est GFR (MDRD) Af Amer >60 (>60 ml/min/1.73 sqM) Est GFR (MDRD) Non-Af 59 (>60 ml/min/1.73 sqM) Glucose 92 (74-99) mg/dL Plasma Lactic Acid Artie (0.7-2.0) mmol/L Calcium 9.3 (8.4-10.2) mg/dL Magnesium 2.1 (1.6-2.3) mg/dL Total Bilirubin 0.6 (0.2-1.3) mg/dL AST 32 (14-36) U/L ALT 37 (9-52) U/L Alkaline Phosphatase 108 (38-126) U/L Total Protein 6.8 (6.3-8.2) g/dL Albumin 3.9 (3.5-5.0) g/dL Lipase 126 (23-300) U/L Urine Color Yellow Urine Appearance Clear (Clear) Urine pH 6.0 (5.0-8.0) Ur Specific Spencer 1.012 (1.001-1.035) Urine Protein Negative (Negative) Urine Glucose (UA) Negative (Negative) Urine Ketones Negative (Negative) Urine Blood Negative (Negative) Urine Nitrate Negative (Negative) Urine Bilirubin Negative (Negative) Urine Urobilinogen <2.0 (<2.0) mg/dL Ur Leukocyte Esterase Negative (Negative) Influenza Type A RNA (Not Detectd) Influenza Type B (PCR) (Not Detectd) 06/28/16 06/28/16 Range/Units 11:30 11:30 WBC (3.8-10.6) k/uL RBC (3.80-5.40) m/uL Hgb (11.4-16.0) gm/dL Hct (34.0-46.0) % MCV (80.0-100.0) fL MCH (25.0-35.0) pg MCHC (31.0-37.0) g/dL RDW (11.5-15.5) % Plt Count (150-450) k/uL Neutrophils % % Lymphocytes % % Monocytes % % Eosinophils % % Basophils % % Neutrophils # (1.3-7.7) k/uL Lymphocytes # (1.0-4.8) k/uL Monocytes # (0-1.0) k/uL Eosinophils # (0-0.7) k/uL Basophils # (0-0.2) k/uL Sodium (137-145) mmol/L Potassium (3.5-5.1) mmol/L Chloride (98-107) mmol/L Carbon Dioxide (22-30) mmol/L Anion Gap mmol/L BUN (7-17) mg/dL Creatinine (0.52-1.04) mg/dL Est GFR (MDRD) Af Amer (>60 ml/min/1.73 sqM) Est GFR (MDRD) Non-Af (>60 ml/min/1.73 sqM) Glucose (74-99) mg/dL Plasma Lactic Acid Artie 1.0 (0.7-2.0) mmol/L Calcium (8.4-10.2) mg/dL Magnesium (1.6-2.3) mg/dL Total Bilirubin (0.2-1.3) mg/dL AST (14-36) U/L ALT (9-52) U/L Alkaline Phosphatase (38-126) U/L Total Protein (6.3-8.2) g/dL Albumin (3.5-5.0) g/dL Lipase (23-300) U/L Urine Color Urine Appearance (Clear) Urine pH (5.0-8.0) Ur Specific Spencer (1.001-1.035) Urine Protein (Negative) Urine Glucose (UA) (Negative) Urine Ketones (Negative) Urine Blood (Negative) Urine Nitrate (Negative) Urine Bilirubin (Negative) Urine Urobilinogen (<2.0) mg/dL Ur Leukocyte Esterase (Negative) Influenza Type A RNA Not Detected (Not Detectd) Influenza Type B (PCR) Not Detected (Not Detectd) - Radiology Data Radiology results: report reviewed, image reviewed Disposition Clinical Impression: Hypoxia, SOB (shortness of breath), RAD (reactive airway disease), PNA ( pneumonia) Disposition: ADMITTED IP TO THIS HOSP
[2016-06-28] MEDS ORDERED: IPRATROPIUM-ALBUTEROL 3 ML NEB INHALATION STA ×2 (11:28→12:32)
[2016-06-28 11:44] LABS: Basophils # (A) 0.1 k/uL (0-0.2); Basophils % (A) 1 %; CH 29.6; CHCM 33.4; Eosinophils # (A) 0.1 k/uL (0-0.7); Eosinophils % (A) 2 %; HCT 41.1 % (34.0-46.0); HDW 2.43; HGB 13.6 gm/dL (11.4-16.0); Luc # (Auto) 0.07; Luc % (Auto) 1; Lymphocytes # (A) 0.5 k/uL (1.0-4.8); Lymphocytes % (A) 9 %; MCH 29.4 pg (25.0-35.0); MCHC 33.1 g/dL (31.0-37.0); Mean Platelet Volume 7.5; Monocytes # (A) 0.4 k/uL (0-1.0); Monocytes % (A) 8 %; Neutrophils # (A) 4.6 k/uL (1.3-7.7); Neutrophils % (A) 80 %; RBC 4.62 m/uL (3.80-5.40); RDW 12.9 % (11.5-15.5); WBC 5.8 k/uL (3.8-10.6); WBC (Perox) 5.76
[2016-06-28 11:48] LABS: Appearance,Urine Clear (Clear); Bilirubin,Urine Negative (Negative); Glucose,Urine (UA) Negative (Negative); Ketones,Urine Negative (Negative); Leukocyte Esterase,Urine Negative (Negative); Nitrite,Urine Negative (Negative); Protein,Urine Negative (Negative); Specific Gravity,Urine 1.012 (1.001-1.035); UA Billing (MACRO vs. MICRO) CHEM; Urobilinogen,Urine <2.0 mg/dL (<2.0)
[2016-06-28 11:56] LABS: ALT 37 U/L (9-52); AST 32 U/L (14-36); Alkaline Phosphatase 108 U/L (38-126); Anion Gap 12 mmol/L; Blood Urea Nitrogen 18 mg/dL (7-17); Calcium 9.3 mg/dL (8.4-10.2); Carbon Dioxide 25 mmol/L (22-30); Chloride 107 mmol/L (98-107); Glucose 92 mg/dL (74-99); Magnesium 2.1 mg/dL (1.6-2.3); Non-African American GFR(MDRD) 59 (>60 ml/min/1.73 sqM); Potassium 4.4 mmol/L (3.5-5.1); Sodium 144 mmol/L (137-145); Total Bilirubin 0.6 mg/dL (0.2-1.3); Total Protein 6.8 g/dL (6.3-8.2)
--- NOTE | 2016-06-28 12:21 | XR ---
EXAMINATION TYPE: XR chest 2V DATE OF EXAM: 06/28/2016 12:11 PM COMPARISON: Prior chest x-ray 07 February 2015 HISTORY: Cough and shortness of breath TECHNIQUE: Frontal and lateral views of the chest are obtained. FINDINGS: There is no focal air space opacity, pleural effusion, or pneumothorax seen. The cardiac silhouette size is within normal limits. There is some bronchial wall thickening. There are overlyi ng cardiac leads. There may be a spinal curvature, patient is rotated. The osseous structures are int act. IMPRESSION: Correlate for bronchitis, reactive airways disease, follow-up as indicated.
[2016-06-28] MEDS ORDERED: DEXAMETHASONE SOD PHOSPHATE 10 MG/ML 1 ML VIAL IV STA (12:32)
[2016-06-28] MEDS ORDERED: SODIUM CHLORIDE 0.9% 1,000 ML IV ONE (13:02)
[2016-06-28] MEDS ORDERED: LEVOFLOXACIN 500MG-D5W PMX 500 MG in DEXTROSE/WATER 1 100ML.BAG IVPB STA (14:04)
[2016-06-28] MEDS ORDERED: ACETAMINOPHEN TAB 325 MG TAB PO PRN (14:38)
[2016-06-28] MEDS ORDERED: NALOXONE 0.4 MG/ML 1 ML VIAL IV PRN (14:38)
[2016-06-28] MEDS ORDERED: LACTATED RINGERS 1,000 ML IV SCH (14:45)
[2016-06-28] MEDS: HEPARIN SODIUM,PORCINE 5,000 UNIT/ML 1 ML VIAL SQ SCH (18:42)
[2016-06-28] MEDS: ALBUTEROL NEBULIZED 2.5 MG/3 ML INHALATION SCH ×3 (19:58→23:17)
[2016-06-28 20:31] LABS: Glucose,Whole Blood 154 mg/dL (75-99)
[2016-06-28] MEDS: MONTELUKAST 10 MG TAB PO SCH (20:32)
[2016-06-28] MEDS: SODIUM CHLORIDE 0.9% 1,000 ML IV SCH (20:32)
[2016-06-28] MEDS: traMADol 50 MG TAB PO SCH (20:32)
[2016-06-28] MEDS: risperiDONE 2 MG TAB PO SCH (20:33)
[2016-06-28] MEDS: INSULIN LISPRO (humaLOG) 300 UNIT/3 ML VIAL SQ SCH (20:33)
[2016-06-28] MEDS: PANTOPRAZOLE 40 MG TABLET PO SCH (20:33)
[2016-06-28] MEDS ORDERED: ALBUTEROL NEBULIZED 2.5 MG/3 ML INHALATION PRN (23:18)
[2016-06-29] MEDS: HEPARIN SODIUM,PORCINE 5,000 UNIT/ML 1 ML VIAL SQ SCH ×3 (00:24→17:04)
[2016-06-29] MEDS ORDERED: glipiZIDE 10 MG TAB PO SCH (07:30)
[2016-06-29] MEDS: ALBUTEROL NEBULIZED 2.5 MG/3 ML INHALATION SCH ×4 (07:37→19:22)
[2016-06-29 07:59] LABS: Glucose,Whole Blood 101 mg/dL (75-99)
[2016-06-29] MEDS: traMADol 50 MG TAB PO SCH ×2 (08:20→20:37)
[2016-06-29] MEDS: INSULIN LISPRO (humaLOG) 300 UNIT/3 ML VIAL SQ SCH ×2 (08:21→11:53)
[2016-06-29] MEDS: SERTRALINE 100 MG TAB PO SCH (08:22)
[2016-06-29] MEDS: DONEPEZIL 10 MG TAB PO SCH (08:22)
[2016-06-29] MEDS: LORATADINE 10 MG TAB PO SCH (08:22)
[2016-06-29] MEDS ORDERED: PNEUMONIA PROTOCOL UTILIZED 1 EACH MISC PO PRN (08:50)
[2016-06-29] MEDS ORDERED: FAMOTIDINE 20 MG TAB PO SCH (09:00)
--- NOTE | 2016-06-29 09:31 | XR ---
EXAMINATION TYPE: XR chest 2V DATE OF EXAM: 06/29/2016 9:07 AM COMPARISON: Prior chest x-ray 28 June 2016 HISTORY: Pneumonia TECHNIQUE: Frontal and lateral views of the chest are obtained. FINDINGS: Question some patchy retrocardiac increased density, blunting of the posterior costophreni c angle. Cardiomediastinal silhouette, pulmonary vascularity and ashvin are within normal limits. No ev ident pneumothorax. There are overlying cardiac leads. IMPRESSION: Findings could represent basilar atelectasis or pneumonia, difficult to exclude a small effusion. Follow-up recommended.
[2016-06-29] MEDS: LEVOFLOXACIN 750 MG TAB PO SCH (11:34)
[2016-06-29] MEDS: SODIUM CHLORIDE 0.9% 1,000 ML IV SCH (11:39)
[2016-06-29 11:52] LABS: Glucose,Whole Blood 46 mg/dL (75-99)
[2016-06-29 11:52] LABS: Glucose,Whole Blood 44 mg/dL (75-99)
[2016-06-29 12:11] LABS: Glucose,Whole Blood 60 mg/dL (75-99)
[2016-06-29 12:30] LABS: Glucose,Whole Blood 63 mg/dL (75-99)
[2016-06-29 12:52] LABS: Glucose,Whole Blood 64 mg/dL (75-99)
[2016-06-29 13:52] LABS: Glucose,Whole Blood 44 mg/dL (75-99)
[2016-06-29] MEDS ORDERED: DEXTROSE 50%-WATER 50 ML SYRINGE IVP STA (13:57)
[2016-06-29 14:48] LABS: Glucose,Whole Blood 60 mg/dL (75-99)
[2016-06-29] MEDS ORDERED: DEXTROSE 5% IN WATER 225 ML IV ONE (14:50)
[2016-06-29 15:27] LABS: Glucose,Whole Blood 91 mg/dL (75-99)
--- NOTE | 2016-06-29 16:17 | P.HPIM ---
History of Present Illness H&P Date: 06/29/16 Chief Complaint: Altered mental status Patient is a 66-year-old female, patient of Dr. Jerry Golden in the outpatient setting with complex medical history noted below significant for recent hospital admission from 06/07/2016 to 06/08/2016 for sepsis with hypovolemic shock and possible syncope secondary to dehydration secondary to enteritis. Patient does have a history of Alzheimer's dementia and is a poor historian with no family at bedside. Most of information is taken from chart. Patient presented to the emergency department for increased confusion, cough, and congestion. Per family, patient appeared to be more confused than normal and was unable to feed herself prior to admission which is not normal for patient. Chest x-ray in the emergency department with evidence of bronchitis. Repeat chest x-ray from 06/29/2016 with findings of basilar atelectasis or pneumonia. In the emergency department patient was found to be hypoxic with oxygen saturation of 89% on room air. No evidence of leukocytosis. Patient was admitted to the medical floor with persistent hypoxia and started on IV antibiotics. Consult requested from Dr. Jaramillo for pulmonary service. Past Medical History Past Medical History: Asthma, Heart Failure, COPD, Dementia, Diabetes Mellitus, Deep Vein Thrombosis (DVT), GERD/Reflux, Hyperlipidemia, Myocardial Infarction ( [place]), Osteoarthritis (OA), Pneumonia, Renal Disease, Seizure Disorder, Sleep Apnea/CPAP/BIPAP, Vascular Disorder Additional Past Medical History / Comment(s): Recent pneumonia and past pneumonia, diverticulosis, sleep apnea HAS CPAP,MURMUR, SEIZURES IN THE 1969'S( EPILEPSY) NO SEIZURES SINCE 1974- NOT ON MEDS FOR IT ANYMORE, IBS, PAD, TMJ, anemia, nephrolithiasis, stomach ulcer, ESTEFANY-has CPAP but pulls off at times, as child has needle in her head. Last Myocardial Infarction Date:: 1991 History of Any Multi-Drug Resistant Organisms: None Reported Past Surgical History: Adenoidectomy, Appendectomy, Bowel Resection, Cholecystectomy, Hernia Repair, Hysterectomy, Orthopedic Surgery, Tonsillectomy Additional Past Surgical History / Comment(s): partial colon resection with colostomy then reversal, SILVERIO KNEE ARTHROSCOPY,Right KNEE REPLACEMENT, EGDs and colonoscopies, lipomas off back, cyst off spine. Past Anesthesia/Blood Transfusion Reactions: Previous Problems w/ Anesthesia, Motion Sickness Additional Past Anesthesia/Blood Transfusion Reaction / Comment(s): DIFFICULTY WAKING UP. CLAUSTERPHOBIC Past Psychological History: Anxiety, Bipolar Additional Psychological History / Comment(s): DYSLEXIA but is able to read and write with some difficulty. Pt resides with her sisters, Reny who is also her legal guardian and Michelle. They are her caretakers. Pt uses a walker to ambulate. She does not drive, Michelle takes her to appts. Smoking Status: Former smoker Past Alcohol Use History: None Reported Additional Past Alcohol Use History / Comment(s): STARTED SMOKNG AT AGE 16, SMOKED 1 CIG PER DAY QUIT 1982 Past Drug Use History: None Reported - Past Family History Father Family Medical History: Cancer Additional Family Medical History / Comment(s): Father had lung cancer. Mother Family Medical History: Congestive Heart Failure (CHF), Dementia, Myocardial Infarction ([place]) Medications and Allergies Home Medications Medication Instructions Recorded Confirmed Type Albuterol Sulfate [Proair Hfa] 2 puff INHALATION RT-Q4H PRN 06/24/14 06/28/16 History Sertraline [Zoloft] 200 mg PO QAM 06/24/14 06/28/16 History risperiDONE [RisperDAL] 2 mg PO HS 06/24/14 06/28/16 History Donepezil [Aricept] 10 mg PO QAM 02/07/15 06/28/16 History traMADol HCL [Ultram] 50 mg PO BID 03/21/16 06/28/16 History Famotidine 20 mg PO DAILY 06/28/16 06/28/16 History Loratadine [Loratadine] 10 mg PO DAILY 06/28/16 06/28/16 History Montelukast Sodium [Singulair] 10 mg PO HS 06/28/16 06/28/16 History Omeprazole [PriLOSEC] 20 mg PO HS 06/28/16 06/28/16 History glipiZIDE [Glucotrol] 10 mg PO AC-BRKFST 06/28/16 06/28/16 History Allergies Allergy/AdvReac Type Severity Reaction Status Date / Time baclofen Allergy Unknown Psychotic Verified 06/28/16 09:53 Episode codeine Allergy Rash/Hives Verified 06/28/16 09:53 lorazepam [From Ativan] Allergy Rash/Hives Verified 06/28/16 09:53 oxaprozin [From Daypro] Allergy Rash/Hives Verified 06/28/16 09:53 Sulfa (Sulfonamide Allergy Rash/Hives Verified 06/28/16 09:53 Antibiotics) cyclobenzaprine HCl AdvReac Confusion Verified 06/28/16 09:53 [From Flexeril] Physical Exam Vitals: Vital Signs Temp Pulse Pulse Resp BP Pulse Ox 06/29/16 15:27 72 06/29/16 15:20 72 06/29/16 15:00 97.5 F L 85 16 114/56 98 06/29/16 11:04 80 06/29/16 10:58 76 06/29/16 07:55 72 06/29/16 07:41 76 06/29/16 07:00 97.6 F 53 L 16 133/68 100 06/28/16 22:23 97.4 F L 73 16 106/60 97 06/28/16 21:42 80 06/28/16 21:28 80 06/28/16 16:10 98.4 F 78 16 106/59 98 Intake and Output 06/29/16 06/29/16 06/29/16 06:59 14:59 22:59 Intake Total 650 600 Balance 650 600 Intake: IV 450 Sodium Chloride 0.9% 1, 450 000 ml @ 50 mls/hr IV . Q20H [facility] Rx#:[id number] Oral 200 600 Other: Voiding Method Toilet # Voids 1 5 # Bowel Movements 1 GENERAL: Pt awake and alert, well-nourished, and in no acute distress. HEAD: Atraumatic, normocephalic. EYES: Pupils equal and round. Sclera anicteric, conjunctiva are normal. ENT: Moist mucous membranes. NECK:Supple without lymphadenopathy or JVD. LUNGS: Breath sounds clear to auscultation bilaterally. No wheezes, rales, or rhonchi. HEART: Heart S1, S2, no S3 or S4. Regular rate and rhythm. No murmurs, rubs or gallops. ABDOMEN: Soft, obese, nontender, nondistended, normoactive bowel sounds. No guarding, no rebound. No masses or organomegaly appreciated. EXTREMITIES: 2+ peripheral pulses. No edema. No calf tenderness. NEUROLOGICAL: Pt oriented x 3. Cranial nerves II through XII grossly intact. Strength and sensation grossly intact. PSYCH: Normal mood, normal affect. SKIN: Warm, dry, intact. Normal turgor. No rashes or lesions. Results CBC & Chem 7: 06/28/16 11:30 06/28/16 11:30 Labs: Abnormal Lab Results - Last 24 Hours (Table) 06/28/16 06/29/16 06/29/16 Range/Units 20:19 07:56 11:49 POC Glucose (mg/dL) 154 H 101 H 44 L (75-99) mg/dL 06/29/16 06/29/16 06/29/16 Range/Units 11:50 12:07 12:24 POC Glucose (mg/dL) 46 L 60 L 63 L (75-99) mg/dL 06/29/16 06/29/16 06/29/16 Range/Units 12:50 13:50 14:34 POC Glucose (mg/dL) 64 L 44 L 60 L (75-99) mg/dL Chest x-ray: report reviewed Thrombosis Risk Factor Assmnt - DVT/VTE Prophylaxis DVT/VTE Prophylaxis: Pharmacologic Prophylaxis ordered - Choose All That Apply Any of the Below Risk Factors Present?: Yes Each Factor Represents 1 point: Abnormal pulmonary function (COPD), Obesity ( BMI >25), Swollen legs (current) Other Risk Factors: Yes Each Risk Factor Represents 2 Points: Age 61-74 years Thrombosis Risk Factor Assessment Total Risk Factor Score: 5 Thrombosis Risk Factor Assessment Level: High Risk Assessment and Plan Plan: Impression and plan: 1. Acute hypoxic respiratory failure, present on admission, suspect secondary to pneumonia, healthcare acquired. Chest x-ray with basilar atelectasis or pneumonia. Patient with cough, congestion, increased confusion, and subjective chills. Continue antibiotics in the form of Levaquin. Pulmonary consult requested, recommendations pending. Sputum and blood cultures pending. Continue supplemental oxygen. 2. History of asthma. Continue nebulized updraft treatment. Continue singular and Claritin. 3. History of heart failure, type unknown. 4. History of Alzheimer's dementia. Continue Aricept and Namenda. 5. Diabetes mellitus type 2. Continue Accu-Chek before meals at bedtime with Humalog sliding scale. Continue Glucotrol. 6. History of GERD. Continue Protonix. 7. History of hyperlipidemia. Continue Lipitor. 8. History of coronary artery disease with myocardial infarction. 9. History of osteoarthritis, multiple joints. Continue tramadol. 10. History of recent pneumonia. 11. History of renal insufficiency. 12. History of seizure disorders. 13. History of obstructive sleep apnea with CPAP at home. 14. History of diverticulosis. 15. History of irritable bowel syndrome. 16. History of peripheral arterial disease. 17. History of nephrolithiasis. 18. History of partial bowel resection with colostomy and reversal.. 19. History of cholecystectomy. 20. History of anxiety and bipolar, stable. Continue Risperdal Zoloft. 21. GI and DVT prophylaxis. Continue Protonix and Lovenox. 22. Repeat CBC and BMP in a.m. The above impression and plan have been discussed and directed by Dr. Golden. Mercedes CHURCH acting as scribe for Dr. Golden.
[2016-06-29 16:35] LABS: Glucose,Whole Blood 47 mg/dL (75-99)
[2016-06-29] MEDS ORDERED: DEXTROSE 5% IN WATER 1,000 ML IV ONE (16:47)
[2016-06-29 17:15] LABS: Glucose,Whole Blood 67 mg/dL (75-99)
--- NOTE | 2016-06-29 17:19 | CONS ---
DATE OF CONSULTATION: 06/29/2016 REASON FOR CONSULTATION: Hypoxia and pneumonia. HISTORY OF PRESENTING ILLNESS: Brooklyn Carrero is a pleasant 66-year-old female who was seen, evaluated, examined on the fifth floor. This patient presented into the emergency department with problems associated with altered mental status and confusion. Patient has been having cough, congestion as well. Patient has a recent history of hospitalization due to intravascular volume depletion and dehydration. Due to persistent confusion, she was brought into the hospital. She does have significant Alzheimer's disease as well. Most of the care is being provided by the sister. A chest x-ray, which was performed in the emergency department suggestive of bronchitis versus pneumonia. Past medical history is significant for: 1. Chronic persistent asthma. 2. Congestive heart failure./ 3. COPD. 4. Dementia. 5. Diabetes mellitus. 6. History of deep venous thrombosis. 7. GERD. 8. Dyslipidemia. 9. History of prior myocardial infarction. 10. Pneumonia. 11. Renal failure. 12. Seizure disorder. 13. Sleep-disordered breathing and sleep apnea. PAST SURGICAL HISTORY: Significant for bowel resection, appendectomy, cholecystectomy, hernia repair, status post hysterectomy, tonsillectomy, partial colon resection with colostomy, history of bilateral knee arthroscopic with prior history of right total arthroplasty, EGD and colonoscopy, history of lipoma resection of the back and cyst resection. ALLERGIES INCLUDE BACLOFEN, CODEINE, ATIVAN, SULFA MEDICATIONS AND BENAZEPRIL. MEDICATIONS INCLUDE: Include: 1. ProAir HFA 2 puffs 4 times a day. 2. Zoloft. 3. Risperdal. 4. Aricept. 5. Ultram. 6. Pepcid. 7. Loratadine. 8. Also on Singulair. 9. Prilosec. 10. Glucotrol. Current medications while in the hospital include: 1. Tylenol as needed. 2. Albuterol updraft 4 times a day. 3. Also on D5 75 mL/h. 4. Aricept 10 mg daily. 5. Glucotrol 10 mg daily. 6. Heparin 5000 units subcu q8 hourly. 7. Sliding scale insulin. 8. Levaquin 750 mg daily. 9. Also on Singulair 10 mg daily. 10. Protonix 40 mg daily. 11. Risperdal 2 mg. 12. Zoloft. 13. IV fluid normal saline 50 mL an hour. REVIEW OF SYSTEMS: Otherwise unremarkable and noncontributory. Unable to obtain at length. On examination, most recent vitals include blood pressure 140/52, respiratory rate 16, pulse 85, temperature is 98, saturation of 98% on 2 liters oxygen. HEENT EXAMINATION: ( ) atraumatic. Normocephalic. Pharynx is clear without exudate. NECK: Supple without lymphadenopathy, jugular venous distention or carotid bruit. LUNGS: Bilateral fine rhonchi are present. HEART: Regular rate and rhythm. S1 and S2 audible. ABDOMEN: Soft. NEUROLOGICAL EXAMINATION: Awake and alert. Labs reviewed. Medications reviewed as well. Influenza A and B are both negative. Urinalysis unremarkable. Chemistry is normal. ( ) sugar are 154. CBC is within normal range as well. IMPRESSION: 1. Trach bronchopneumonia purulent tracheobronchitis. 2. Acute chronic obstructive pulmonary disease exacerbation. 3. Altered mental status and encephalopathy related to above. 4. Acute hypoxic respiratory failure follow up on culture results and the sputum including blood cultures. 5. Other issues include Alzheimer's disease. 6. Congestive heart failure. 7. History of dyslipidemia. 8. Coronary artery disease with myocardial infarction. 9. Seizure disorder. 10. Sleep apnea, has been on CPAP machine. 11. History of bowel resection and colostomy and reversal. PLAN AND RECOMMENDATIONS: As above. Continue ( ) antibiotics. Continue supportive care. Follow clinical course closely. Further recommendations pending.
[2016-06-29 19:54] LABS: Glucose,Whole Blood 65 mg/dL (75-99)
[2016-06-29 20:13] LABS: Glucose,Whole Blood 66 mg/dL (75-99)
[2016-06-29] MEDS: risperiDONE 2 MG TAB PO SCH (20:37)
[2016-06-29] MEDS: PANTOPRAZOLE 40 MG TABLET PO SCH (20:37)
[2016-06-29] MEDS: MONTELUKAST 10 MG TAB PO SCH (21:33)
[2016-06-29 21:37] LABS: Glucose,Whole Blood 87 mg/dL (75-99)
[2016-06-30] MEDS: HEPARIN SODIUM,PORCINE 5,000 UNIT/ML 1 ML VIAL SQ SCH ×4 (00:19→23:47)
[2016-06-30 00:36] LABS: Glucose,Whole Blood 62 mg/dL (75-99)
[2016-06-30 02:42] LABS: Glucose,Whole Blood 54 mg/dL (75-99)
[2016-06-30 02:49] LABS: Glucose,Whole Blood 80 mg/dL (75-99)
[2016-06-30 06:04] LABS: Glucose,Whole Blood 80 mg/dL (75-99)
[2016-06-30 07:59] LABS: Glucose,Whole Blood 75 mg/dL (75-99)
[2016-06-30] MEDS: SERTRALINE 100 MG TAB PO SCH (08:16)
[2016-06-30] MEDS: DONEPEZIL 10 MG TAB PO SCH (08:16)
[2016-06-30] MEDS: traMADol 50 MG TAB PO SCH ×2 (08:16→20:48)
[2016-06-30] MEDS: LEVOFLOXACIN 750 MG TAB PO SCH (08:16)
[2016-06-30] MEDS: LORATADINE 10 MG TAB PO SCH (08:16)
[2016-06-30] MEDS: ALBUTEROL NEBULIZED 2.5 MG/3 ML INHALATION SCH ×4 (08:40→20:23)
--- NOTE | 2016-06-30 09:50 | PN ---
Brooklyn Carrero is a 66-year-old female who is seen, evaluated, examined on the fifth floor. Clinically patient is doing well, awake and alert. Her shortness of breath is significantly improved. She has significant degree of dementia. She has been treated for acute tracheobronchitis and acute COPD exacerbation. Her mental status is almost coming back to baseline. Hemodynamic status is stable. Last set of vitals include blood pressure is 110/63, respiratory rate 20, pulse 85, temperature 97, saturation 97% on 2 L oxygen. HEENT EXAMINATION: Otherwise unremarkable. NECK: Supple. LUNGS: Good air entry bilaterally. Fine expiratory rhonchi cannot be excluded. HEART: Regular rate and rhythm. ABDOMEN: Soft. NEUROLOGICAL EXAMINATION: Otherwise, awake and alert. Chest x-ray revealed possible basilar pneumonia and small effusion. The patient is on Tylenol, albuterol updraft, Aricept, heparin, Levaquin, Claritin, Singulair, Protonix, Risperdal, sertraline, tramadol. IMPRESSION: 1. Bilateral basal pneumonia. 2. Acute chronic obstructive pulmonary disease exacerbation. 3. Advanced dementia. 4. Mood disorder, depression. Plan is to continue antibiotics. Continue breathing treatments. Follow clinical course closely. Blood cultures no growth so far. Sputum could not be obtained. Will follow.
[2016-06-30 10:16] LABS: Glucose,Whole Blood 144 mg/dL (75-99)
[2016-06-30 12:01] LABS: Glucose,Whole Blood 117 mg/dL (75-99)
[2016-06-30 14:17] LABS: Glucose,Whole Blood 138 mg/dL (75-99)
[2016-06-30 16:27] LABS: Glucose,Whole Blood 127 mg/dL (75-99)
[2016-06-30 18:22] LABS: Glucose,Whole Blood 112 mg/dL (75-99)
[2016-06-30 20:05] LABS: Glucose,Whole Blood 124 mg/dL (75-99)
--- NOTE | 2016-06-30 20:25 | PN ---
DATE OF SERVICE: 06/30/2016 I am covering for Dr. Golden. HISTORY OF PRESENT ILLNESS: This 66-year-old woman was admitted with COPD acute exacerbation as well as bilateral pneumonia, also severe hypoxia, has been closely monitored. The patient is still having cough at this time. Pulmonary is following the patient closely. Patient is on broad-spectrum IV antibiotics. The cultures are negative so far. PAST MEDICAL HISTORY: Reviewed. REVIEW OF SYSTEMS: CARDIOVASCULAR: No angina. RESPIRATORY: As mentioned earlier. GI: As mentioned earlier. : No dysuria. NERVOUS SYSTEM: No numbness or weakness. Current medications are reviewed and include: 1. Tylenol 650 q.6 p.r.n. 2. Ventolin. 3. Aricept 10 mg q.a.m. 4. Heparin 5000 subcu q.8. 5. Levaquin 750 q.48h. 6. Claritin 10 mg. 7. Singulair 10 mg q.h.s. 8. Narcan 0.2 p.r.n. 9. Protonix 40 mg daily 10. Risperdal 2 mg q.h.s. 11. Zoloft 200 mg p.o. q.a.m. 12. Ultram 50 mg p.o. b.i.d. PHYSICAL EXAMINATION: Patient is alert and oriented x3. Pulse 77, blood pressure 120/60, respirations 16, temperature 97 degrees, pulse ox 90% on 2-L. HEENT: Conjunctivae normal. Oral mucosa moist. NECK: No jugular venous distention. No carotid bruit. No lymph node enlargement. CARDIOVASCULAR: S1 and S2, muffled. RESPIRATORY: Breathing efforts are markedly increased. Bilateral scattered rhonchi, expiratory wheezing and crackles present. Breath sounds diminished at the bases. ABDOMEN: Soft, nontender. No mass palpable. LEGS: No edema, no swelling. NERVOUS SYSTEM: Higher function as mentioned. Moves all four limbs. No focal motor deficits. LYMPHATIC: No lymphadenopathy in the neck, axillae or groin. SKIN: No ulcer, rash or bleeding. LABS: Accu-Cheks noted. CBC, BMP noted. ASSESSMENT: 1. Chronic obstructive pulmonary disease exacerbation, with acute bilateral bibasilar pneumonia, possible gram-negative with acute hypoxic respiratory failure with possible sepsis, present on admission. 2. History of asthma. 3. History of congestive heart failure. 4. History of dementia, Alzheimer's. 5. Diabetes mellitus type 2. 6. History of gastroesophageal reflux disease. 7. Hyperlipidemia. 8. History of coronary artery disease, myocardial infarction. 9. History of degenerative joint disease. 10. History of recent pneumonia. 11. History of renal insufficiency. 12. History of seizure disorder. 13. Obstructive sleep apnea on CPAP at home. 14. History of diverticulosis. 15. History of irritable bowel. 16. History of peripheral artery disease. 17. History of nephrolithiasis. 18. History of partial small bowel obstruction with colostomy reversed. 19. History of cholecystectomy. 20. History of anxiety, bipolar, not otherwise specified. 21. Gastrointestinal and deep venous thrombosis prophylaxis. RECOMMENDATIONS AND DISCUSSION: In this 66-year-old woman who presented with multiple complex medical issues, will monitor the patient closely. Continue the current medications and symptomatic treatment. Otherwise, at this time I would recommend continue with the broad-spectrum IV antibiotics, bronchodilators. Closely follow with Pulmonary. Guarded prognosis because of multiple complex medical issues. Further recommendations to follow. Repeat the labs. Otherwise, increase ambulation. Guarded prognosis. Further recommendations to follow.
[2016-06-30] MEDS: MONTELUKAST 10 MG TAB PO SCH (20:46)
[2016-06-30] MEDS: PANTOPRAZOLE 40 MG TABLET PO SCH (20:46)
[2016-06-30] MEDS: risperiDONE 2 MG TAB PO SCH (20:46)
[2016-06-30 22:17] LABS: Glucose,Whole Blood 131 mg/dL (75-99)
[2016-07-01 00:04] LABS: Glucose,Whole Blood 122 mg/dL (75-99)
[2016-07-01 01:49] LABS: Glucose,Whole Blood 116 mg/dL (75-99)
[2016-07-01 04:16] LABS: Glucose,Whole Blood 144 mg/dL (75-99)
[2016-07-01 07:22] LABS: Glucose,Whole Blood 105 mg/dL (75-99)
[2016-07-01] MEDS: DONEPEZIL 10 MG TAB PO SCH (08:39)
[2016-07-01] MEDS: LORATADINE 10 MG TAB PO SCH (08:39)
[2016-07-01] MEDS: SERTRALINE 100 MG TAB PO SCH (08:39)
[2016-07-01] MEDS: HEPARIN SODIUM,PORCINE 5,000 UNIT/ML 1 ML VIAL SQ SCH ×2 (08:46→16:43)
[2016-07-01] MEDS: traMADol 50 MG TAB PO SCH ×2 (08:49→20:16)
[2016-07-01] MEDS: ALBUTEROL NEBULIZED 2.5 MG/3 ML INHALATION SCH ×4 (08:57→21:00)
[2016-07-01 11:59] LABS: Glucose,Whole Blood 103 mg/dL (75-99)
[2016-07-01 17:05] LABS: Glucose,Whole Blood 133 mg/dL (75-99)
[2016-07-01] MEDS ORDERED: methylPREDNISolone SOD SUCCI 125 MG/2 ML VIAL IV SCH (18:00)
[2016-07-01] MEDS: INSULIN LISPRO (humaLOG) 300 UNIT/3 ML VIAL SQ SCH ×2 (18:01→20:18)
[2016-07-01] MEDS ORDERED: predniSONE 20 MG TAB PO STA (18:14)
[2016-07-01 20:16] LABS: Glucose,Whole Blood 165 mg/dL (75-99)
[2016-07-01] MEDS: risperiDONE 2 MG TAB PO SCH (20:16)
[2016-07-01] MEDS: PANTOPRAZOLE 40 MG TABLET PO SCH (20:16)
[2016-07-01] MEDS: MONTELUKAST 10 MG TAB PO SCH (20:16)
[2016-07-01] MEDS: BUDESONIDE 0.5 MG/2 ML NEBU INHALATION SCH (21:00)
[2016-07-01 21:27] VITALS: RESP 16
--- NOTE | 2016-07-01 21:55 | PN ---
I am covering for Dr. Golden. DATE OF SERVICE: 07/01/2016 This 66-year-old woman who was admitted with COPD acute exacerbation is being closely monitored. The patient also had bibasilar pneumonia. Dr. Jaramillo is following the patient closely. No chest pain. No palpitations. No fever. On exam, alert and oriented x2. Pulse 90, blood pressure 103/50, respirations 16, temperature 97.4, pulse ox of 93% on room air. HEENT: Conjunctivae normal. NECK: No jugular venous distention. CARDIOVASCULAR: S1, S2 muffled. RESPIRATORY: Breath sounds diminished at the bases. A few scattered rhonchi and crackles. ABDOMEN: Soft, nontender. LEGS: No edema. No swelling. CENTRAL NERVOUS SYSTEM: No focal deficits. LABS: CBC ntd influenza noted. ASSESSMENT: 1. Chronic obstructive pulmonary disease, acute exacerbation, with acute bilateral bibasilar pneumonia, possibly gram-negative with acute hypoxic respiratory failure with possible sepsis, present on admission. 2. History of asthma. 3. History of congestive heart failure. 4. History of dementia, Alzheimer's. 5. History of diabetes mellitus type 2. 6. History of gastroesophageal reflux disease. 7. Hyperlipidemia. 8. History of coronary artery disease, myocardial infarction. 9. History of degenerative joint disease. 10. History of recent pneumonia. 11. History renal insufficiency. 12. History of seizure disorder. 13. History of obstructive sleep apnea. CPAP at home. 14. History of diverticulosis. 15. History of irritable bowel syndrome. 16. History of peripheral vascular disease. 17. History of nephrolithiasis. 18. History of partial small bowel obstruction with a colostomy reversal. 19. History of cholecystitis. 20. Anxiety bipolar, not otherwise specified. 21. History of gastrointestinal and deep venous thrombosis prophylaxis. RECOMMENDATIONS AND DISCUSSION: To continue the current medications, continue with monitoring, symptomatic treatment. Otherwise, continue the bronchodilators and continue the rest of the medications. Closely follow with Dr. Jaramillo. Guarded prognosis because of multiple complex medical issues. Further recommendations to follow. See orders for further details. MTDD
[2016-07-02] MEDS: HEPARIN SODIUM,PORCINE 5,000 UNIT/ML 1 ML VIAL SQ SCH ×2 (00:15→08:42)
[2016-07-02 07:21] LABS: Glucose,Whole Blood 110 mg/dL (75-99)
[2016-07-02 08:12] VITALS: BP 145/70; TEMP 97.5
[2016-07-02] MEDS: INSULIN LISPRO (humaLOG) 300 UNIT/3 ML VIAL SQ SCH ×2 (08:39→13:36)
[2016-07-02] MEDS: DONEPEZIL 10 MG TAB PO SCH (08:42)
[2016-07-02] MEDS: SERTRALINE 100 MG TAB PO SCH (08:42)
[2016-07-02] MEDS: traMADol 50 MG TAB PO SCH (08:42)
[2016-07-02] MEDS: LORATADINE 10 MG TAB PO SCH (08:42)
[2016-07-02] MEDS: BUDESONIDE 0.5 MG/2 ML NEBU INHALATION SCH (08:57)
[2016-07-02] MEDS: ALBUTEROL NEBULIZED 2.5 MG/3 ML INHALATION SCH ×3 (08:57→15:33)
[2016-07-02] MEDS ORDERED: LEVOFLOXACIN 750 MG TAB PO SCH (09:00)
[2016-07-02] MEDS ORDERED: predniSONE 20 MG TAB PO SCH (09:00)
[2016-07-02 09:11] VITALS: PULSE 88
[2016-07-02 09:16] LABS: Basophils % (A) 0 %; CH 29.9; CHCM 33.8; Eosinophils % (A) 0 %; HCT 38.9 % (34.0-46.0); HDW 2.41; HGB 12.7 gm/dL (11.4-16.0); Luc # (Auto) 0.05; Luc % (Auto) 1; Lymphocytes # (A) 1.1 k/uL (1.0-4.8); Lymphocytes % (A) 11 %; MCH 29.2 pg (25.0-35.0); MCHC 32.8 g/dL (31.0-37.0); Mean Platelet Volume 8.6; Monocytes # (A) 0.6 k/uL (0-1.0); Monocytes % (A) 7 %; Neutrophils # (A) 7.9 k/uL (1.3-7.7); Neutrophils % (A) 81 %; RBC 4.37 m/uL (3.80-5.40); RDW 12.9 % (11.5-15.5); WBC 9.7 k/uL (3.8-10.6); WBC (Perox) 9.76
--- NOTE | 2016-07-02 09:34 | PN ---
DATE OF SERVICE: 07/01/2016 She does not seem to be in any respiratory distress. On physical examination, respiratory rate is 14, pulse rate of 84, temperature 97.3, blood pressure 103/59, O2 sat on room air is 98%. HEENT is unremarkable. Chest is clear. Cardiovascular S1 and S2. Abdomen is soft. There is no edema. Blood cultures have been negative. IMPRESSION: 1. Bilateral basal pneumonia, possibly due to aspiration. 2. Chronic obstructive pulmonary disease with exacerbation. 3. Dementia. 4. Mood disorder. At this point in time, continue Aricept, GI and DVT prophylaxis, IV steroids, bronchodilators. Add aerosolized steroids and switch her to oral steroids. Depending on how she does, we shall make further changes to her care.
[2016-07-02 09:38] LABS: Anion Gap 12 mmol/L; Blood Urea Nitrogen 29 mg/dL (7-17); Calcium 9.2 mg/dL (8.4-10.2); Carbon Dioxide 24 mmol/L (22-30); Chloride 104 mmol/L (98-107); Glucose 115 mg/dL (74-99); Non-African American GFR(MDRD) >60 (>60 ml/min/1.73 sqM); Potassium 4.4 mmol/L (3.5-5.1); Sodium 140 mmol/L (137-145)
--- NOTE | 2016-07-02 11:32 | P.DS ---
Providers Date of admission: 06/28/16 14:41 Expected date of discharge: 07/02/16 Attending physician: Jerry Golden Consults: 06/28/16 14:54 Consult Physician Routine Consulting Provider: Mayank Jaramillo Consult Reason/Comments: hypoxia, rad, pna Do you want consulting provider notified?: Yes Primary care physician: Jerry Golden [facility] Course: Patient is a 66-year-old female, patient of Dr. Jerry Golden in the outpatient setting with complex medical history significant for recent hospital admission from 06/07/2016 to 06/08/2016 for sepsis with hypovolemic shock and possible syncope secondary to dehydration secondary to enteritis. Patient presented to the emergency department for increased confusion, cough, and congestion with evidence of exacerbation of COPD and bilateral basilar pneumonia. Patient was seen and evaluated by Dr. Jaramillo for pulmonary service during the hospitalization. Patient improved significantly with IV hydration, IV antibiotics, supplemental oxygen, systemic and inhaled steroids, and nebulized updraft treatments. Patient was found stable to be discharged to home. Patient will follow-up with Dr. Golden and Dr. Jaramillo in the outpatient setting. Discharge diagnoses: 1. Acute exacerbation of chronic obstructive pulmonary disease, with acute bilateral bibasilar pneumonia, possibly gram-negative with acute hypoxic respiratory failure with possible sepsis, present on admission. 2. History of asthma. 3. History of heart failure, type unknown. 4. History of Alzheimer's dementia. 5. Diabetes mellitus type 2. 6. History of GERD. 7. History of hyperlipidemia. 8. History of coronary artery disease with myocardial infarction. 9. History of osteoarthritis, multiple joints. 10. History of recent pneumonia. 11. History of renal insufficiency. 12. History of seizure disorders. 13. History of obstructive sleep apnea with CPAP at home. 14. History of diverticulosis. 15. History of irritable bowel syndrome. 16. History of peripheral arterial disease. 17. History of nephrolithiasis. 18. History of partial bowel resection with colostomy and reversal. 19. History of cholecystectomy. 20. History of anxiety and bipolar, stable. The above impression and plan have been discussed and directed by Dr. Golden. Mercedes CHURCH acting as scribe for Dr. Golden. Pertinent Studies: EKG; chest x-ray Patient Condition at Discharge: Good Plan - Discharge Summary Discharge Medication List Albuterol Sulfate [Proair Hfa] 2 puff INHALATION RT-Q4H PRN 01/22/15 [History] Sertraline [Zoloft] 200 mg PO QAM 06/24/14 [History] risperiDONE [RisperDAL] 2 mg PO HS 06/24/14 [History] Donepezil [Aricept] 10 mg PO QAM 02/07/15 [History] traMADol HCL [Ultram] 50 mg PO BID 03/21/16 [History] Famotidine 20 mg PO DAILY 06/28/16 [History] Loratadine [Loratadine] 10 mg PO DAILY 06/28/16 [History] Montelukast Sodium [Singulair] 10 mg PO HS 06/28/16 [History] Omeprazole [PriLOSEC] 20 mg PO HS 06/28/16 [History] glipiZIDE [Glucotrol] 10 mg PO [id number] 06/28/16 [History] Follow up Appointment(s)/Referral(s): Jerry Golden DO [Primary Care Provider] - 1-2 days Mayank Jaramillo MD [STAFF PHYSICIAN] - 1 Week
[2016-07-02 11:35] LABS: Hemoglobin A1C 4.8 % (4.2-6.1)
[2016-07-02 11:44] LABS: Glucose,Whole Blood 108 mg/dL (75-99)
== END 2016-07-02 15:30 | disposition home or self-care (01) | DRG 190 ==
LOC: EC 09:36 → 5MS5E 14:41
PROVIDERS: ADMIT Family Medicine; ATTEND Family Medicine
DX: J44.0 Chronic obstructive pulmonary disease with (acute) lower respiratory infection (principal); J15.6 Pneumonia due to other Gram-negative bacteria; J96.01 Acute respiratory failure with hypoxia; G93.40 Encephalopathy, unspecified; G30.9 Alzheimer's disease, unspecified; I50.9 Heart failure, unspecified; N19 Unspecified kidney failure; F02.80 Dementia in other diseases classified elsewhere, unspecified severity, without behavioral disturbance, psychotic disturbance, mood disturbance, and anxiety; J98.11 Atelectasis; J44.1 Chronic obstructive pulmonary disease with (acute) exacerbation; E78.5 Hyperlipidemia, unspecified; G47.33 Obstructive sleep apnea (adult) (pediatric); I25.2 Old myocardial infarction; I25.10 Atherosclerotic heart disease of native coronary artery without angina pectoris; K21.9 Gastro-esophageal reflux disease without esophagitis; R48.0 Dyslexia and alexia; J45.909 Unspecified asthma, uncomplicated; J20.9 Acute bronchitis, unspecified; I73.9 Peripheral vascular disease, unspecified; E11.9 Type 2 diabetes mellitus without complications; F32.9 Major depressive disorder, single episode, unspecified; F41.9 Anxiety disorder, unspecified; G40.909 Epilepsy, unspecified, not intractable, without status epilepticus; M19.90 Unspecified osteoarthritis, unspecified site; K58.9 Irritable bowel syndrome, unspecified; Z90.710 Acquired absence of both cervix and uterus; Z90.49 Acquired absence of other specified parts of digestive tract; Z87.891 Personal history of nicotine dependence; Z88.5 Allergy status to narcotic agent; Z88.2 Allergy status to sulfonamides; Z88.8 Allergy status to other drugs, medicaments and biological substances; Z86.718 Personal history of other venous thrombosis and embolism; Z87.01 Personal history of pneumonia (recurrent); Z87.442 Personal history of urinary calculi; Z96.651 Presence of right artificial knee joint; Z79.84 Long term (current) use of oral hypoglycemic drugs; Z79.899 Other long term (current) drug therapy
CPT/HCPCS: 36415; 71020; 80048; 80053; 81003; 83036; 83605; 83690; 83735; 85025; 87040; 87502; 93005; 94640; 96361; 96365; 96375; 99284

== ENCOUNTER 2016-07-14 20:27 | Inpatient (IN) | payer MEDICARE, OTHER ==
[2016-07-14] MEDS ORDERED: SODIUM CHLORIDE 0.9% 1,000 ML IV STA (21:11)
[2016-07-14 21:26] LABS: Basophils # (A) 0.4 k/uL (0-0.2); Basophils % (A) 2 %; CH 29.3; CHCM 32.5; Eosinophils # (A) 0.2 k/uL (0-0.7); Eosinophils % (A) 1 %; HDW 2.39; HGB 13.5 gm/dL (11.4-16.0); Immature Gran Flag Slight; Luc # (Auto) 0.08; Luc % (Auto) 0; Lymphocytes # (A) 1.2 k/uL (1.0-4.8); Lymphocytes % (A) 5 %; MCH 28.4 pg (25.0-35.0); MCHC 31.4 g/dL (31.0-37.0); MCV 90.5 fL (80.0-100.0); Mean Platelet Volume 7.6; Monocytes # (A) 0.7 k/uL (0-1.0); Monocytes % (A) 2 %; Neutrophils # (A) 24.9 k/uL (1.3-7.7); Neutrophils % (A) 90 %; RBC 4.75 m/uL (3.80-5.40); RDW 12.7 % (11.5-15.5); WBC (Perox) 27.36
--- NOTE | 2016-07-14 21:33 | ED ---
Syncope HPI - General Chief Complaint: Syncope Stated Complaint: syncope Time Seen by Provider: 07/14/16 20:30 Source: patient, family, EMS, RN notes reviewed, old records reviewed Mode of arrival: EMS Limitations: no limitations - History of Present Illness Initial Comments: This is a 66-year-old female who was brought in for evaluation after passing out while on a toilet 3 she apparently passed out for about 5 minutes each time. This is similar to what she had about a week ago when she was presented here for syncope. At that time she was found have pneumonia the flu and dehydration. Also of note she's not really had a bowel movement for past 3 weeks is no reports of nausea vomiting today or blood per rectum. During my examination the patient did have a spontaneous bowel movement. She also does complain some nonspecific abdominal discomfort. MD Complaint: loss of consciousness - Related Data Home Medications Medication Instructions Recorded Confirmed Albuterol Sulfate [Proair Hfa] 2 puff INHALATION RT-Q4H PRN 06/24/14 06/28/16 Sertraline [Zoloft] 200 mg PO QAM 06/24/14 06/28/16 risperiDONE [RisperDAL] 2 mg PO HS 06/24/14 06/28/16 Donepezil [Aricept] 10 mg PO QAM 02/07/15 06/28/16 traMADol HCL [Ultram] 50 mg PO BID 03/21/16 06/28/16 Loratadine 10 mg PO DAILY 06/28/16 06/28/16 Montelukast Sodium [Singulair] 10 mg PO HS 06/28/16 06/28/16 Omeprazole [PriLOSEC] 20 mg PO HS 06/28/16 06/28/16 Previous Rx's Medication Instructions Recorded Levofloxacin [Levaquin] 750 mg PO Q48H #3 tab 07/02/16 methylPREDNISolone Dose Pack 4 mg PO DIRECTED #21 package 07/02/16 [Medrol Dose Pack] Allergies Allergy/AdvReac Type Severity Reaction Status Date / Time baclofen Allergy Unknown Psychotic Verified 07/14/16 20:36 Episode codeine Allergy Rash/Hives Verified 07/14/16 20:36 lorazepam [From Ativan] Allergy Rash/Hives Verified 07/14/16 20:36 oxaprozin [From Daypro] Allergy Rash/Hives Verified 07/14/16 20:36 Sulfa (Sulfonamide Allergy Rash/Hives Verified 07/14/16 20:36 Antibiotics) cyclobenzaprine HCl AdvReac Confusion Verified 07/14/16 20:36 [From Flexeril] Review of Systems ROS Statement: Those systems with pertinent positive or pertinent negative responses have been documented in the HPI. ROS Other: All systems not noted in ROS Statement are negative. Past Medical History Past Medical History: Asthma, Heart Failure, COPD, Dementia, Diabetes Mellitus, Deep Vein Thrombosis (DVT), GERD/Reflux, Hyperlipidemia, Myocardial Infarction ( MT), Osteoarthritis (OA), Pneumonia, Renal Disease, Seizure Disorder, Sleep Apnea/CPAP/BIPAP, Vascular Disorder Additional Past Medical History / Comment(s): Recent pneumonia and past pneumonia, diverticulosis, sleep apnea HAS CPAP,MURMUR, SEIZURES IN THE S( EPILEPSY) NO SEIZURES SINCE 1974- NOT ON MEDS FOR IT ANYMORE, IBS, PAD, TMJ, anemia, nephrolithiasis, stomach ulcer, ESTEFANY-has CPAP but pulls off at times, as child has needle in her head. Last Myocardial Infarction Date:: 1991 History of Any Multi-Drug Resistant Organisms: None Reported Past Surgical History: Adenoidectomy, Appendectomy, Bowel Resection, Cholecystectomy, Hernia Repair, Hysterectomy, Orthopedic Surgery, Tonsillectomy Additional Past Surgical History / Comment(s): partial colon resection with colostomy then reversal, SILVERIO KNEE ARTHROSCOPY,Right KNEE REPLACEMENT, EGDs and colonoscopies, lipomas off back, cyst off spine. Past Anesthesia/Blood Transfusion Reactions: Previous Problems w/ Anesthesia, Motion Sickness Additional Past Anesthesia/Blood Transfusion Reaction / Comment(s): DIFFICULTY WAKING UP. CLAUSTERPHOBIC Past Psychological History: Anxiety, Bipolar Additional Psychological History / Comment(s): DYSLEXIA but is able to read and write with some difficulty. Pt resides with her sisters, Reny who is also her legal guardian and Michelle. They are her caretakers. Pt uses a walker to ambulate. She does not drive, Michelle takes her to [facility]. Smoking Status: Former smoker Past Alcohol Use History: None Reported Additional Past Alcohol Use History / Comment(s): STARTED SMOKNG AT AGE 16, SMOKED 1 CIG PER DAY QUIT 1982 Past Drug Use History: None Reported - Past Family History Father Family Medical History: Cancer Additional Family Medical History / Comment(s): Father had lung cancer. Mother Family Medical History: Congestive Heart Failure (CHF), Dementia, Myocardial Infarction (MT) General Exam - General Exam Comments Initial Comments: This is a well-developed well-nourished awake alert oriented history female Limitations: no limitations General appearance: alert, lethargic Head exam: Present: atraumatic, normocephalic, normal inspection Eye exam: Present: normal appearance, PERRL, EOMI. Absent: scleral icterus, conjunctival injection, periorbital swelling ENT exam: Present: mucous membranes dry Neck exam: Present: normal inspection. Absent: tenderness, meningismus, lymphadenopathy Respiratory exam: Present: normal lung sounds bilaterally. Absent: respiratory distress, wheezes, rales, rhonchi, stridor Cardiovascular Exam: Present: regular rate, normal rhythm, normal heart sounds. Absent: systolic murmur, diastolic murmur, rubs, gallop, clicks GI/Abdominal exam: Present: soft, normal bowel sounds. Absent: distended, tenderness, guarding, rebound, rigid Extremities exam: Present: normal inspection, full ROM, normal capillary refill. Absent: tenderness, pedal edema, joint swelling, calf tenderness Back exam: Present: normal inspection Neurological exam: Present: alert, oriented X3, CN II-XII intact Psychiatric exam: Present: normal affect, normal mood Skin exam: Present: warm, dry, intact, normal color. Absent: rash Course Vital Signs 07/14/16 07/14/16 07/14/16 20:28 20:55 21:15 Temperature 97.2 F L Pulse Rate 75 67 75 Respiratory 18 18 18 Rate Blood Pressure 78/42 96/50 117/57 O2 Sat by Pulse 94 L 95 100 Oximetry 07/14/16 07/14/16 07/14/16 21:38 22:00 22:31 Temperature 97.2 F L 98.4 F 98.0 F Pulse Rate 69 76 72 Respiratory 20 20 20 Rate Blood Pressure 104/53 110/53 105/52 O2 Sat by Pulse 100 100 100 Oximetry - Reevaluation(s) Reevaluation #1: 07/14/16 22:57 Reevaluation patient reveals her to have some improvement. EKG Findings - EKG Results: EKG: interpreted by THOMAS (Sinus rhythm rate 67. Interval 190 QRS duration 80 daily since QTC of/4314 R-wave progression no acute ST-T wave changes) Medical Decision Making - Lab Data Result diagrams: 07/14/16 20:45 07/14/16 20:45 Lab Results 07/14/16 07/14/16 07/14/16 Range/Units 20:45 20:45 20:45 WBC 27.5 H* (3.8-10.6) k/uL RBC 4.75 (3.80-5.40) m/uL Hgb 13.5 (11.4-16.0) gm/dL Hct 43.0 (34.0-46.0) % MCV 90.5 (80.0-100.0) fL MCH 28.4 (25.0-35.0) pg MCHC 31.4 (31.0-37.0) g/dL RDW 12.7 (11.5-15.5) % Plt Count 195 (150-450) k/uL Neutrophils % 90 % Lymphocytes % 5 % Monocytes % 2 % Eosinophils % 1 % Basophils % 2 % Neutrophils # 24.9 H (1.3-7.7) k/uL Lymphocytes # 1.2 (1.0-4.8) k/uL Monocytes # 0.7 (0-1.0) k/uL Eosinophils # 0.2 (0-0.7) k/uL Basophils # 0.4 H (0-0.2) k/uL PT (9.0-12.0) sec INR (<1.1) APTT (22.0-30.0) sec Sodium 142 (137-145) mmol/L Potassium 3.9 (3.5-5.1) mmol/L Chloride 107 (98-107) mmol/L Carbon Dioxide 24 (22-30) mmol/L Anion Gap 11 mmol/L BUN 15 (7-17) mg/dL Creatinine 1.10 H (0.52-1.04) mg/dL Est GFR (MDRD) Af Amer >60 (>60 ml/min/1.73 sqM) Est GFR (MDRD) Non-Af 50 (>60 ml/min/1.73 sqM) Glucose 100 H (74-99) mg/dL Plasma Lactic Acid Artie (0.7-2.0) mmol/L Calcium 9.1 (8.4-10.2) mg/dL Magnesium (1.6-2.3) mg/dL Total Bilirubin 0.4 (0.2-1.3) mg/dL AST 33 (14-36) U/L ALT 51 (9-52) U/L Alkaline Phosphatase 113 (38-126) U/L Total Creatine Kinase 48 (30-135) U/L CK-MB (CK-2) 0.4 (0.0-2.4) ng/mL CK-MB (CK-2) Rel Index 0.8 Troponin I <0.012 (0.000-0.034) ng/mL Total Protein 6.3 (6.3-8.2) g/dL Albumin 3.7 (3.5-5.0) g/dL Amylase (30-110) U/L Lipase (23-300) U/L Urine Color Urine Appearance (Clear) Urine pH (5.0-8.0) Ur Specific Fork (1.001-1.035) Urine Protein (Negative) Urine Glucose (UA) (Negative) Urine Ketones (Negative) Urine Blood (Negative) Urine Nitrate (Negative) Urine Bilirubin (Negative) Urine Urobilinogen (<2.0) mg/dL Ur Leukocyte Esterase (Negative) Stool Occult Blood (Negative) 07/14/16 07/14/16 07/14/16 Range/Units 20:45 20:45 21:17 WBC (3.8-10.6) k/uL RBC (3.80-5.40) m/uL Hgb (11.4-16.0) gm/dL Hct (34.0-46.0) % MCV (80.0-100.0) fL MCH (25.0-35.0) pg MCHC (31.0-37.0) g/dL RDW (11.5-15.5) % Plt Count (150-450) k/uL Neutrophils % % Lymphocytes % % Monocytes % % Eosinophils % % Basophils % % Neutrophils # (1.3-7.7) k/uL Lymphocytes # (1.0-4.8) k/uL Monocytes # (0-1.0) k/uL Eosinophils # (0-0.7) k/uL Basophils # (0-0.2) k/uL PT 10.5 (9.0-12.0) sec INR 1.0 (<1.1) APTT 24.5 (22.0-30.0) sec Sodium (137-145) mmol/L Potassium (3.5-5.1) mmol/L Chloride (98-107) mmol/L Carbon Dioxide (22-30) mmol/L Anion Gap mmol/L BUN (7-17) mg/dL Creatinine (0.52-1.04) mg/dL Est GFR (MDRD) Af Amer (>60 ml/min/1.73 sqM) Est GFR (MDRD) Non-Af (>60 ml/min/1.73 sqM) Glucose (74-99) mg/dL Plasma Lactic Acid Artie (0.7-2.0) mmol/L Calcium (8.4-10.2) mg/dL Magnesium 1.9 (1.6-2.3) mg/dL Total Bilirubin (0.2-1.3) mg/dL AST (14-36) U/L ALT (9-52) U/L Alkaline Phosphatase (38-126) U/L Total Creatine Kinase (30-135) U/L CK-MB (CK-2) (0.0-2.4) ng/mL CK-MB (CK-2) Rel Index Troponin I (0.000-0.034) ng/mL Total Protein (6.3-8.2) g/dL Albumin (3.5-5.0) g/dL Amylase 88 (30-110) U/L Lipase 230 (23-300) U/L Urine Color Urine Appearance (Clear) Urine pH (5.0-8.0) Ur Specific Fork (1.001-1.035) Urine Protein (Negative) Urine Glucose (UA) (Negative) Urine Ketones (Negative) Urine Blood (Negative) Urine Nitrate (Negative) Urine Bilirubin (Negative) Urine Urobilinogen (<2.0) mg/dL Ur Leukocyte Esterase (Negative) Stool Occult Blood Negative (Negative) 07/14/16 07/14/16 Range/Units 21:50 21:59 WBC (3.8-10.6) k/uL RBC (3.80-5.40) m/uL Hgb (11.4-16.0) gm/dL Hct (34.0-46.0) % MCV (80.0-100.0) fL MCH (25.0-35.0) pg MCHC (31.0-37.0) g/dL RDW (11.5-15.5) % Plt Count (150-450) k/uL Neutrophils % % Lymphocytes % % Monocytes % % Eosinophils % % Basophils % % Neutrophils # (1.3-7.7) k/uL Lymphocytes # (1.0-4.8) k/uL Monocytes # (0-1.0) k/uL Eosinophils # (0-0.7) k/uL Basophils # (0-0.2) k/uL PT (9.0-12.0) sec INR (<1.1) APTT (22.0-30.0) sec Sodium (137-145) mmol/L Potassium (3.5-5.1) mmol/L Chloride (98-107) mmol/L Carbon Dioxide (22-30) mmol/L Anion Gap mmol/L BUN (7-17) mg/dL Creatinine (0.52-1.04) mg/dL Est GFR (MDRD) Af Amer (>60 ml/min/1.73 sqM) Est GFR (MDRD) Non-Af (>60 ml/min/1.73 sqM) Glucose (74-99) mg/dL Plasma Lactic Acid Artie 1.4 (0.7-2.0) mmol/L Calcium (8.4-10.2) mg/dL Magnesium (1.6-2.3) mg/dL Total Bilirubin (0.2-1.3) mg/dL AST (14-36) U/L ALT (9-52) U/L Alkaline Phosphatase (38-126) U/L Total Creatine Kinase (30-135) U/L CK-MB (CK-2) (0.0-2.4) ng/mL CK-MB (CK-2) Rel Index Troponin I (0.000-0.034) ng/mL Total Protein (6.3-8.2) g/dL Albumin (3.5-5.0) g/dL Amylase (30-110) U/L Lipase (23-300) U/L Urine Color Light Yellow Urine Appearance Clear (Clear) Urine pH 7.5 (5.0-8.0) Ur Specific Fork 1.007 (1.001-1.035) Urine Protein Trace H (Negative) Urine Glucose (UA) Negative (Negative) Urine Ketones Negative (Negative) Urine Blood Negative (Negative) Urine Nitrate Negative (Negative) Urine Bilirubin Negative (Negative) Urine Urobilinogen <2.0 (<2.0) mg/dL Ur Leukocyte Esterase Negative (Negative) Stool Occult Blood (Negative) Critical Care Time Critical Care Time: Yes Critical Care Time: Or 2 minutes critical care time which includes the monitoring of the EMS call and discussed with paramedics history physical and evaluation the patient with labs and x-rays. Discussion with the patient family members on several occasions. Reevaluation the patient response to therapy. Discussion with the admitting team and orders. Documentation the above. Disposition Clinical Impression: Syncope and collapse, Dehydration, Leukocytosis, unspecified, Hypotensive episode Disposition: ADMITTED IP TO THIS HOSP Condition: Stable
--- NOTE | 2016-07-14 21:36 | XR ---
EXAMINATION TYPE: XR chest 2V DATE OF EXAM: 07/14/2016 9:33 PM COMPARISON: 06/29/2016 HISTORY: Syncope TECHNIQUE: Frontal and lateral views of the chest are obtained. FINDINGS: There is no heart failure nor confluent pneumonic infiltrate. Heart size is normal. There are chest leads. There is no sign of pleural effusion. IMPRESSION: No active cardiopulmonary disease. No change.
[2016-07-14 21:37] LABS: ALT 51 U/L (9-52); AST 33 U/L (14-36); Alkaline Phosphatase 113 U/L (38-126); Anion Gap 11 mmol/L; Blood Urea Nitrogen 15 mg/dL (7-17); Calcium 9.1 mg/dL (8.4-10.2); Carbon Dioxide 24 mmol/L (22-30); Chloride 107 mmol/L (98-107); Glucose 100 mg/dL (74-99); Non-African American GFR(MDRD) 50 (>60 ml/min/1.73 sqM); Potassium 3.9 mmol/L (3.5-5.1); Sodium 142 mmol/L (137-145); Total Bilirubin 0.4 mg/dL (0.2-1.3); Total Protein 6.3 g/dL (6.3-8.2)
--- NOTE | 2016-07-14 21:37 | XR ---
EXAMINATION TYPE: XR abdomen 1V DATE OF EXAM: 07/14/2016 9:33 PM COMPARISON: 06/07/2016 HISTORY: Syncope TECHNIQUE: Single view FINDINGS: There is no sign of intestinal obstruction or pneumoperitoneum. Fecal pattern is normal. Th ere is no sign of a mass. There are no pathologic calcifications over the kidneys. IMPRESSION: Nonacute abdomen. No change.
[2016-07-14 21:38] LABS: Partial Thromboplastin Time 24.5 sec (22.0-30.0); Prothrombin Time 10.5 sec (9.0-12.0)
[2016-07-14 21:42] LABS: WBC 27.5 k/uL (3.8-10.6)
[2016-07-14 21:46] LABS: Creatine Kinase 48 U/L (30-135)
[2016-07-14 21:51] LABS: Magnesium 1.9 mg/dL (1.6-2.3)
[2016-07-14 21:58] LABS: Creatine Kinase MB 0.4 ng/mL (0.0-2.4); Troponin I <0.012 ng/mL (0.000-0.034)
[2016-07-14 22:22] LABS: Appearance,Urine Clear (Clear); Bilirubin,Urine Negative (Negative); Glucose,Urine (UA) Negative (Negative); Ketones,Urine Negative (Negative); Leukocyte Esterase,Urine Negative (Negative); Nitrite,Urine Negative (Negative); PH, Urine 7.5 (5.0-8.0); Protein,Urine Trace (Negative); Specific Gravity,Urine 1.007 (1.001-1.035); UA Billing (MACRO vs. MICRO) CHEM; Urobilinogen,Urine <2.0 mg/dL (<2.0)
[2016-07-14] MEDS ORDERED: NALOXONE 0.4 MG/ML 1 ML VIAL IV PRN (23:01)
[2016-07-14] MEDS ORDERED: ALBUTEROL NEBULIZED 2.5 MG/3 ML INHALATION PRN (23:04)
[2016-07-14] MEDS: SODIUM CHLORIDE 0.9% 1,000 ML IV SCH (23:34)
[2016-07-15 00:45] LABS: Glucose,Whole Blood 163 mg/dL (75-99)
[2016-07-15 01:13] VITALS: BMI 20.3
[2016-07-15 08:01] LABS: Glucose,Whole Blood 89 mg/dL (75-99)
[2016-07-15] MEDS ORDERED: MIDODRINE 5 MG TAB PO SCH (08:45)
[2016-07-15] MEDS: traMADol 50 MG TAB PO SCH ×2 (10:30→20:10)
[2016-07-15] MEDS: SERTRALINE 100 MG TAB PO SCH (10:30)
[2016-07-15] MEDS: LORATADINE 10 MG TAB PO SCH (10:31)
[2016-07-15] MEDS: DONEPEZIL 10 MG TAB PO SCH (10:31)
--- NOTE | 2016-07-15 10:46 | CONS ---
DATE OF CONSULTATION: CHIEF COMPLAINT: Syncope. [place] is a 66-year-old lady with history of dementia, COPD, who presented to the hospital having had an episode of syncope at home. She is a poor historian and it is somewhat difficult to find out what exactly transpired, but she was apparently on the toilet and then passed out for about 5 minutes and this happened 3 times. She has not fallen, has not ( ). She is doing well otherwise. There is no history of nausea, vomiting. On her initial presentation her blood pressure was somewhat low. Since admission she ruled out for myocardial infarction and remained in sinus rhythm. EKG does not reveal acute ischemic changes. Blood pressure still is somewhat low this morning. I do not have any orthostatic changes on her. Past medical history is negative for hypertension, diabetes, dyslipidemia. Current medications include: 1. Pro-Air. 2. Zoloft. 3. Risperdal. 4. Aricept. 5. Ultram. 6. Singulair. 7. Omeprazole. ALLERGIC TO BACLOFEN, CODEINE, ATIVAN, DAYPRO, SULFA, FLEXERIL. FAMILY HISTORY: Negative for premature coronary artery disease. SOCIAL HISTORY: Negative for current smoking, ETOH abuse, or drug abuse. REVIEW OF SYSTEMS: HEENT: Unremarkable. CARDIAC: As described above. RESPIRATORY: As described above. GI: Negative. GENITOURINARY: Negative. Allergy/immunology: Negative. SKIN: Negative. MUSCULOSKELETAL: Significant for arthritis. PSYCHOSOCIAL: Negative. ENDOCRINE: Negative. Dermatology: Negative. CONSTITUTIONAL: Negative. The rest of the system review is not relevant. On exam, comfortable at rest, afebrile, heart rate is 58 beats per minute. Blood pressure is 95/50. Respiratory rate 18. There is no jugular venous distention. Carotid upstroke is normal. There is no bruit. Chest exam reveals good air entry bilaterally. Heart exam reveals first and second heart sounds. No gallop. No murmur. Abdomen soft, nontender. Exam of the extremities did not reveal any edema. Peripheral pulses are palpable. ASSESSMENT: Syncope, rule out cardiac causes. Patient's syncope could be due to hypotension. I am going to obtain a d-dimer to rule out pulmonary embolism. The labs are remarkable. Potassium is 3.9, hemoglobin is 13.5. White cell count is elevated, but she had recently been on steroids and antibiotics. I am going to obtain an echo to assess her LV function, start her on Midodrine and if her blood pressure improved and she is feeling well, she can be discharged home tomorrow morning. Thank you for giving me the privilege to participate in the care of this pleasant lady.
[2016-07-15 11:48] LABS: Glucose,Whole Blood 130 mg/dL (75-99)
--- NOTE | 2016-07-15 14:03 | ECHOF ---
Referral Reason:heart function MEASUREMENTS -------- HEIGHT: 170.2 cm WEIGHT: 59.0 kg BP: 132/60 IVSd: 1.0 cm (0.6 - 1.1) LVIDd: 3.6 cm (3.9 - 5.3) LVPWd: 1.0 cm (0.6 - 1.1) LVIDs: 2.6 cm LA Diam: 3.2 cm (2.7 - 3.8) RVIDd: 2.9 cm (< 3.3) LAESV Index (A-L): 22.19 ml/m Ao Diam: 2.9 cm (2.0 - 3.7) AV Cusp: 1.6 cm (1.5 - 2.6) EPSS: 0.3 cm AV maxP.52 mmHg AV meanP.58 mmHg AR PHT: 503 ms RAP: 5.00 mmHg RVSP: 27.38 mmHg MV EF SLOPE: 50.58 mm/s (70 - 150) MV EXCURSION: 13.54 mm (> 18.000) FINDINGS -------- Sinus rhythm. This was a technically good study. The left ventricular size is normal. Left ventricular wall thickness is normal. Overall left ventricular systolic function is normal with, an EF between 60 - 65 %. The right ventricle is normal in size and function. Normal LA size by volume 22+/-6 ml/m2. The right atrium is normal in size. Aortic valve is trileaflet and is mildly thickened. There is moderate aortic regurgitation. There is mild aortic stenosis present. Peak/mean gradient across the Aortic Valve is 19.52mmHg / 11.58mmHg. Normal appearing mitral valve. No mitral regurgitation. Trace tricuspid regurgitation present. Right ventricular systolic pressure is normal at < 35 mmHg. The pulmonic valve is normal. There is no pulmonic regurgitation present. The aortic root size is normal. Normal inferior vena cava with normal inspiratory collapse consistent with estimated right atrial pressure of 5 mmHg. There is no pericardial effusion. CONCLUSIONS -------- 1. Sinus rhythm. 2. There is mild aortic stenosis present. 3. Peak/mean gradient across the Aortic Valve is 19.52mmHg / 11.58mmHg. 4. Normal appearing mitral valve. 5. Trace tricuspid regurgitation present. 6. Right ventricular systolic pressure is normal at < 35 mmHg. 7. The pulmonic valve is normal. 8. The aortic root size is normal. 9. Normal inferior vena cava with normal inspiratory collapse consistent with estimated right atrial pressure of 5 mmHg. 10. There is no pericardial effusion. 11. This was a technically good study. 12. The left ventricular size is normal. 13. Left ventricular wall thickness is normal. 14. Overall left ventricular systolic function is normal with, an EF between 60 - 65 %. 15. The right ventricle is normal in size and function. 16. Normal LA size by volume 22+/-6 ml/m2. 17. Aortic valve is trileaflet and is mildly thickened. 18. There is moderate aortic regurgitation. ACCOUNT INFORMATION CLERK: Jasmin Martínez RDCS
[2016-07-15] MEDS ORDERED: IPRATROPIUM-ALBUTEROL 3 ML NEB INHALATION PRN (15:24)
[2016-07-15] MEDS: SODIUM CHLORIDE 0.9% 1,000 ML IV SCH ×3 (15:31→23:47)
--- NOTE | 2016-07-15 16:18 | HP ---
DATE OF ADMISSION: Patient is a 66-year-old female, came in after patient had a syncopal episode which was witnessed for about 5 minutes without any seizure-like activity, loss of bowel or bladder continence. Patient was complaining of some flulike symptoms including body aches, I ordered influenza testing and patient was vomiting multiple times and patient was complaining of some diffuse nonspecific abdominal pain. Patient has a significant dementia. Patient's baseline is alert and oriented x2. I am not sure what kind of dementia she has, most probably a dementia ( ), patient is on donepezil. Patient also has hearing problems because of which her history is limited. Patient denied any diarrhea and patient has a minimally elevated creatinine of 1.1. Her baseline should be below 5, considering her muscle mass which is a low muscle mass. Patient is 58 kg weight and patient denied any cough, runny nose, dysuria. Patient is receiving IV fluids and will continue with IV fluids today. Repeat electrolytes and CBC tomorrow. Patient was hypotensive, leading to syncopal episode. Patient's echocardiogram did not show any significant abnormalities, including no significant valvular abnormalities. Average showed ejection fraction of 65. REVIEW OF SYSTEMS: All of the review of systems are negative except for those mentioned above. Patient is a poor historian because of the above-mentioned reasons. Home medications include: 1. Albuterol. 2. Sertraline. 3. Risperdal. 4. Donepezil. 5. Tramadol. 6. Montelukast. 7. Omeprazole. ALLERGIES: ALLERGIC TO BACLOFEN, CODEINE, LORAZEPAM, DAYPRO, SULFA DRUGS, and CYCLOBENZAPRINE. PAST MEDICAL HISTORY: Significant for asthma COPD, dementia, unsure of the exact etiology of dementia, diabetes mellitus, DVT in the past, gastroesophageal reflux disease, hyperlipidemia, myocardial infarction in the past, osteoarthritis, seizure disorder, sleep apnea. Patient apparently has a CPAP machine at home, anxiety, bipolar disorder. SOCIAL HISTORY: Quit in 1982, used to smoke [id number]. Denied any alcohol abuse or any drug abuse. FAMILY HISTORY: Father had lung cancer. Mother had dementia, myocardial infarction. PHYSICAL EXAMINATION: VITAL SIGNS: Temperature 98.0, pulse of 76, respiratory rate of 16, blood pressure is 106/55. Saturating at 98% on 2 L of O2 nasal cannula. GENERAL: Patient is alert and oriented x1. NEUROLOGICAL: No focal neurological deficits were appreciated. HEENT: Pupils are round and equally reacting to light. EOMI. No scleral icterus. No conjunctival pallor. Normocephalic, atraumatic. No pharyngeal erythema. No thyromegaly. CARDIOVASCULAR: S1 and S2 present. No murmurs, rubs, or gallops. PULMONARY: Chest is clear to auscultation, no wheezing or crackles. ABDOMEN: Soft, nontender, nondistended, normoactive bowel sounds. No palpable organomegaly. MUSCULOSKELETAL: No joint swelling or deformity. EXTREMITIES: No cyanosis, clubbing, or pedal edema. SKIN: No rashes. LABORATORY DATA: CBC and BMP are abnormal for elevated WBC count of 12,500, ( ), d-dimer 0.40. Creatinine of 1.10. Urine trace protein. ASSESSMENT AND PLAN: 1. Syncope secondary to hypotension, probably related to intravascular volume depletion, and some viral illness and patient will be continued on IV fluids. Will recheck the electrolytes and basic metabolic profile tomorrow. Cardiac work-up is negative. 2. Chronic obstructive pulmonary disease or asthma without any acute exacerbation. 3. Type 2 diabetes mellitus. 4. Gastroesophageal reflux disease. 5. Hyperlipidemia. 6. Seizure disorder. 7. Obstructive sleep apnea. 8. Peripheral arterial disease. 9. Dementia, most probably dementia of Alzheimer's type. We will repeat basic metabolic profile and CBC tomorrow and patient will be followed by Dr. Jerry Golden, her primary care physician from tomorrow.
[2016-07-15 16:53] LABS: Glucose,Whole Blood 87 mg/dL (75-99)
[2016-07-15] MEDS: PANTOPRAZOLE 40 MG/10 ML VIAL IVP SCH (17:00)
[2016-07-15] MEDS: risperiDONE 2 MG TAB PO SCH (20:09)
[2016-07-15] MEDS: ATORVASTATIN 10 MG TAB PO SCH (20:09)
[2016-07-15] MEDS: MONTELUKAST 10 MG TAB PO SCH (20:09)
[2016-07-15 20:15] VITALS: RESP 16
[2016-07-15 20:37] LABS: Glucose,Whole Blood 165 mg/dL (75-99)
[2016-07-15] MEDS ORDERED: PANTOPRAZOLE 40 MG TABLET PO SCH (21:00)
[2016-07-16 06:37] LABS: Glucose,Whole Blood 90 mg/dL (75-99)
[2016-07-16 07:09] LABS: CH 29.4; CHCM 32.2; HCT 36.1 % (34.0-46.0); HDW 2.38; HGB 11.6 gm/dL (11.4-16.0); MCH 29.4 pg (25.0-35.0); MCHC 32.2 g/dL (31.0-37.0); MCV 91.5 fL (80.0-100.0); Mean Platelet Volume 7.9; RBC 3.94 m/uL (3.80-5.40); RDW 12.8 % (11.5-15.5); WBC 9.9 k/uL (3.8-10.6)
[2016-07-16 07:24] LABS: Anion Gap 8 mmol/L; Blood Urea Nitrogen 12 mg/dL (7-17); Calcium 8.2 mg/dL (8.4-10.2); Carbon Dioxide 24 mmol/L (22-30); Chloride 110 mmol/L (98-107); Glucose 93 mg/dL (74-99); Non-African American GFR(MDRD) >60 (>60 ml/min/1.73 sqM); Sodium 142 mmol/L (137-145)
--- NOTE | 2016-07-16 08:39 | PN ---
[place] is a 66-year-old lady who was admitted to hospital with syncope, had an echocardiogram done that was within normal limits. She has done well since yesterday, received one dose of midodrine after which it was stopped by primary. This morning, she is doing well and is free of symptoms, stable hemodynamically. O2 sats looks normal, does not have any orthostatic changes. On exam, vital signs are stable. There is no jugular venous distention. Chest is clear to auscultation and percussion. Heart exam reveals first and second heart sounds. No gallop. Exam of the extremities did not reveal edema. Peripheral pulses are felt. ASSESSMENT: Syncope, probably secondary to hypotension. Patient is feeling better. The exact etiology for her hypotension is unclear. If she has further episodes, will resume the midodrine that I started earlier.
[2016-07-16] MEDS: traMADol 50 MG TAB PO SCH ×2 (10:42→21:00)
[2016-07-16] MEDS: PANTOPRAZOLE 40 MG/10 ML VIAL IVP SCH (10:42)
[2016-07-16] MEDS: SERTRALINE 100 MG TAB PO SCH (10:43)
[2016-07-16] MEDS: MEMANTINE 10 MG TAB PO SCH ×2 (10:44→20:56)
[2016-07-16] MEDS: LORATADINE 10 MG TAB PO SCH (10:44)
[2016-07-16 11:02] LABS: Hemoglobin A1C 5.1 % (4.2-6.1)
[2016-07-16] MEDS: DONEPEZIL 10 MG TAB PO SCH (11:56)
[2016-07-16 12:24] LABS: Glucose,Whole Blood 97 mg/dL (75-99)
--- NOTE | 2016-07-16 14:33 | P.PN ---
Subjective Principal diagnosis: Syncope Patient is a 66-year-old white female admitted with episode of witnessed syncope without seizure like activity, loss of bowel, or bladder incontinence suspect secondary to hypotension possibly secondary to multiple episodes of vomiting associated with diffuse nonspecific abdominal pain. Patient was fluid resuscitated and given 1 dose of midodrine. Cardiology was consulted and patient had an echocardiogram that was within normal limits. Upon examination, patient complains of mild right-sided abdominal pain. Patient ate about 25% of her breakfast. Patient states she gets nauseated after she eats. Denies chills , fevers, vomiting, shortness of breath, chest pain, diarrhea or constipation. Afebrile. Vital signs stable. No evidence of leukocytosis. Influenza A and B not detected. Objective - Vital Signs Vital signs: Vital Signs Temp 98.1 F 07/16/16 11:27 Pulse 58 L 07/16/16 12:00 Resp 16 07/16/16 12:00 BP 123/63 07/16/16 11:27 Pulse Ox 94 L 07/16/16 11:27 Intake & Output 07/15/16 07/16/16 07/16/16 18:59 06:59 18:59 Intake Total 360 1700 400 Balance 360 1700 400 Intake: Intake, IV Titration 1500 Amount Sodium Chloride 0.9% 1, 1500 000 ml @ 125 mls/hr IV . Q8H [facility] Rx#:[id number] Oral 360 200 400 Other: Voiding Method Toilet Toilet # Voids 1 2 1 # Bowel Movements 1 - Exam GENERAL: Pt awake and alert, well-nourished, and in no acute distress. HEAD: Atraumatic, normocephalic. EYES: Pupils equal and round. Sclera anicteric, conjunctiva are normal. ENT:Moist mucous membranes. NECK:Supple without lymphadenopathy or JVD. LUNGS: Breath sounds clear to auscultation bilaterally. No wheezes, rales, or rhonchi. HEART: Heart S1, S2, no S3 or S4. No murmurs, rubs or gallops. ABDOMEN: Soft, mild right lower quadrant tenderness, nondistended, normoactive bowel sounds. No guarding, no rebound. No masses or organomegaly appreciated. EXTREMITIES: Palpable peripheral pulses. No edema. No calf tenderness. NEUROLOGICAL: Pt oriented x 3. No focal deficits. Strength and sensation grossly intact. PSYCH: Normal mood, normal affect. SKIN: Warm, dry, intact. - Labs CBC & Chem 7: 07/16/16 06:34 07/16/16 06:34 Labs: Abnormal Lab Results - Last 24 Hours (Table) 07/15/16 07/16/16 07/16/16 Range/Units 20:35 06:34 06:34 Plt Count 140 L (150-450) k/uL Chloride 110 H (98-107) mmol/L POC Glucose (mg/dL) 165 H (75-99) mg/dL Calcium 8.2 L (8.4-10.2) mg/dL Assessment and Plan Plan: Impression: 1. Syncope suspect secondary to hypotension. 2. Abdominal pain associated with nausea and vomiting, improved. 3. COPD. 4. History of asthma. 5. History of chronic diastolic heart failure. 4. History of Alzheimer's dementia. 5. Diabetes mellitus type 2. 6. History of GERD. 7. History of hyperlipidemia. 8. History of coronary artery disease with myocardial infarction. 9. History of osteoarthritis, multiple joints. 10. History of recent pneumonia. 11. History of renal insufficiency. 12. History of seizure disorders. 13. History of obstructive sleep apnea with CPAP at home. 14. History of diverticulosis. 15. History of irritable bowel syndrome. 16. History of peripheral arterial disease. 17. History of nephrolithiasis. 18. History of partial bowel resection with colostomy and reversal. 19. History of cholecystectomy. 20. History of anxiety and bipolar, stable. Plan: Continue to monitor patient. Continue current medications. Continue supportive treatment and pain management. Repeat CBC and BMP in a.m. Consider surgical consult if patient's abdominal pain persists. The above impression and plan have been discussed and directed by Dr. Golden. Mercedes HCURCH acting as scribe for Dr. Golden.
[2016-07-16 17:13] LABS: Glucose,Whole Blood 91 mg/dL (75-99)
[2016-07-16 20:26] LABS: Glucose,Whole Blood 108 mg/dL (75-99)
[2016-07-16] MEDS: risperiDONE 2 MG TAB PO SCH (20:56)
[2016-07-16] MEDS: MONTELUKAST 10 MG TAB PO SCH (20:56)
[2016-07-16] MEDS: ATORVASTATIN 10 MG TAB PO SCH (20:57)
[2016-07-17] MEDS: SODIUM CHLORIDE 0.9% 1,000 ML IV SCH ×3 (06:36→09:48)
[2016-07-17 07:05] LABS: Glucose,Whole Blood 101 mg/dL (75-99)
[2016-07-17 07:52] LABS: Basophils % (A) 0 %; CH 29.7; CHCM 33.1; Eosinophils # (A) 0.2 k/uL (0-0.7); Eosinophils % (A) 3 %; HCT 35.8 % (34.0-46.0); HDW 2.44; HGB 11.6 gm/dL (11.4-16.0); Luc # (Auto) 0.04; Luc % (Auto) 1; Lymphocytes # (A) 0.8 k/uL (1.0-4.8); Lymphocytes % (A) 10 %; MCH 29.3 pg (25.0-35.0); MCHC 32.5 g/dL (31.0-37.0); MCV 90.3 fL (80.0-100.0); Mean Platelet Volume 8.4; Monocytes # (A) 0.3 k/uL (0-1.0); Monocytes % (A) 4 %; Neutrophils # (A) 6.5 k/uL (1.3-7.7); Neutrophils % (A) 83 %; RBC 3.97 m/uL (3.80-5.40); RDW 12.9 % (11.5-15.5); WBC 7.9 k/uL (3.8-10.6); WBC (Perox) 8.54
[2016-07-17 08:08] LABS: Anion Gap 8 mmol/L; Blood Urea Nitrogen 12 mg/dL (7-17); Calcium 8.6 mg/dL (8.4-10.2); Carbon Dioxide 26 mmol/L (22-30); Chloride 107 mmol/L (98-107); Glucose 103 mg/dL (74-99); Non-African American GFR(MDRD) >60 (>60 ml/min/1.73 sqM); Potassium 3.8 mmol/L (3.5-5.1); Sodium 141 mmol/L (137-145)
[2016-07-17] MEDS: PANTOPRAZOLE 40 MG/10 ML VIAL IVP SCH (09:46)
[2016-07-17] MEDS: LORATADINE 10 MG TAB PO SCH (09:47)
[2016-07-17] MEDS: MEMANTINE 10 MG TAB PO SCH (09:47)
[2016-07-17] MEDS: DONEPEZIL 10 MG TAB PO SCH (09:47)
[2016-07-17] MEDS: SERTRALINE 100 MG TAB PO SCH (09:48)
[2016-07-17] MEDS: traMADol 50 MG TAB PO SCH (09:52)
[2016-07-17 12:09] VITALS: BP 144/69; PULSE 66; TEMP 98.1
[2016-07-17 12:11] LABS: Glucose,Whole Blood 90 mg/dL (75-99)
--- NOTE | 2016-07-17 13:48 | P.DS ---
Providers Date of admission: 07/17/16 08:35 Expected date of discharge: 07/17/16 Attending physician: Jerry Golden Consults: Cardiology Primary care physician: Jerry Golden Hospital Course: Patient is a 66-year-old white female admitted with episode of witnessed syncope without seizure like activity, loss of bowel, or bladder incontinence suspect secondary to hypotension, exact etiology not clear. Patient did have episodes of vomiting associated with diffuse nonspecific abdominal pain, which resolved during hospital stay. Patient was fluid resuscitated and given 1 dose of midodrine and improved significantly. Cardiology was consulted and patient had an echocardiogram that was within normal limits. Influenza A and B not detected. Patient was felt stable for discharge from a cardiology standpoint and a medical standpoint. Patient to follow-up with Dr. Golden in the outpatient setting. Discharge diagnoses: 1. Syncope suspect secondary to hypotension. 2. Abdominal pain associated with nausea and vomiting, improved. 3. COPD. 4. History of asthma. 5. History of chronic diastolic heart failure. 4. History of Alzheimer's dementia. 5. Diabetes mellitus type 2. 6. History of GERD. 7. History of hyperlipidemia. 8. History of coronary artery disease with myocardial infarction. 9. History of osteoarthritis, multiple joints. 10. History of recent pneumonia. 11. History of renal insufficiency. 12. History of seizure disorders. 13. History of obstructive sleep apnea with CPAP at home. 14. History of diverticulosis. 15. History of irritable bowel syndrome. 16. History of peripheral arterial disease. 17. History of nephrolithiasis. 18. History of partial bowel resection with colostomy and reversal. 19. History of cholecystectomy. 20. History of anxiety and bipolar, stable. The above impression and plan have been discussed and directed by Dr. Golden. Mercedes CHURCH acting as scribe for Dr. Golden. Pertinent Studies: EKG; chest x-ray; abdomen x-ray; echocardiogram with Doppler Patient Condition at Discharge: Good Plan - Discharge Summary Discharge Medication List Albuterol Sulfate [Proair Hfa] 2 puff INHALATION RT-Q4H PRN 06/24/14 [History] Sertraline [Zoloft] 200 mg PO QAM 06/24/14 [History] risperiDONE [RisperDAL] 2 mg PO HS 06/24/14 [History] Donepezil [Aricept] 10 mg PO QAM 02/07/15 [History] traMADol HCL [Ultram] 50 mg PO BID 03/21/16 [History] Loratadine 10 mg PO DAILY 06/28/16 [History] Montelukast Sodium [Singulair] 10 mg PO HS 06/28/16 [History] Omeprazole [PriLOSEC] 20 mg PO HS 06/28/16 [History] Atorvastatin [Lipitor] 10 mg PO HS 07/15/16 [History] Ipratropium-Albuterol Nebulize [Duoneb 0.5 mg-3 mg/3 ml Soln] 3 ml INHALATION RT -Q6H PRN 07/15/16 [History] Memantine HCl [Namenda Xr] 28 mg PO DAILY 07/15/16 [History] Mirtazapine [Remeron] 15 mg PO HS 07/15/16 [History] Follow up Appointment(s)/Referral(s): Jerry Golden DO [Primary Care Provider] - 1-2 days (07/19 at 1:20pm) Patient Instructions/Handouts: Dehydration (DC), Syncope (DC) Discharge Disposition: HOME SELF-CARE
== END 2016-07-17 12:55 | disposition home or self-care (01) | DRG 315 ==
LOC: EC 20:27 → EEVIPCON 20:27 → 3OBS 23:00 → OBSVTOIN 07-17 08:35
PROVIDERS: ADMIT Family Medicine; ATTEND Family Medicine
DX: I95.9 Hypotension, unspecified (principal); I50.32 Chronic diastolic (congestive) heart failure; G30.9 Alzheimer's disease, unspecified; F02.80 Dementia in other diseases classified elsewhere, unspecified severity, without behavioral disturbance, psychotic disturbance, mood disturbance, and anxiety; J44.9 Chronic obstructive pulmonary disease, unspecified; E86.0 Dehydration; R11.2 Nausea with vomiting, unspecified; R10.9 Unspecified abdominal pain; J45.909 Unspecified asthma, uncomplicated; K21.9 Gastro-esophageal reflux disease without esophagitis; E78.5 Hyperlipidemia, unspecified; I25.2 Old myocardial infarction; G47.33 Obstructive sleep apnea (adult) (pediatric); G40.909 Epilepsy, unspecified, not intractable, without status epilepticus; M19.90 Unspecified osteoarthritis, unspecified site; F31.9 Bipolar disorder, unspecified; E11.9 Type 2 diabetes mellitus without complications; I73.9 Peripheral vascular disease, unspecified; I25.10 Atherosclerotic heart disease of native coronary artery without angina pectoris; K58.9 Irritable bowel syndrome, unspecified; R48.0 Dyslexia and alexia; N28.9 Disorder of kidney and ureter, unspecified; Z86.718 Personal history of other venous thrombosis and embolism; Z96.651 Presence of right artificial knee joint; Z87.891 Personal history of nicotine dependence; Z79.899 Other long term (current) drug therapy; Z87.442 Personal history of urinary calculi; Z87.01 Personal history of pneumonia (recurrent); Z90.49 Acquired absence of other specified parts of digestive tract; Z88.5 Allergy status to narcotic agent; Z88.2 Allergy status to sulfonamides; Z88.8 Allergy status to other drugs, medicaments and biological substances
CPT/HCPCS: 36415; 51701; 71020; 74000; 80048; 80053; 81003; 82150; 82272; 82550; 82553; 83036; 83605; 83690; 83735; 84484; 85025; 85027; 85379; 85610; 85730; 87502; 93005; 93306; 94640; 96361; 96374; 96376; 99285

== ENCOUNTER → 2016-07-27 | Outpatient (CLI) | payer MEDICARE, OTHER ==
--- NOTE | 2016-07-27 12:25 | FL ---
MODIFIED SWALLOW / DEGLUTITION STUDY DATE OF EXAM: 07/27/2016 11:43 AM CLINICAL HISTORY: 66-year-old female with dysphagia, patient poor historian and unable to provide his tory., Trouble swallowing. TECHNIQUE: Deglutition study is performed utilizing thin liquid barium, honey and nectar thick liqui d barium, barium thick applesauce, and barium coated cracker. COMPARISON: None. FINDINGS: There is delayed swallow with free spill into the piriform sinuses. Superficial penetration is seen w ithin and nectar thick liquid consistencies. This clears after repeat swallow. No evidence for aspira tion with any of the tested consistencies. The patient does display incomplete chewing of solids. IMPRESSION: 1. Superficial penetration with thin and nectar consistencies. No aspiration. 2. Delayed swallow and some free spillage to the piriform sinuses. 3. Please refer to speech therapist notes for further details if necessary.
== END | disposition home or self-care (01) ==
LOC: RADFLMAIN 11:00
PROVIDERS: ATTEND Internal Medicine Sleep Medicine
DX: R13.10 Dysphagia, unspecified (principal)
CPT/HCPCS: 74230

== ENCOUNTER 2016-08-16 12:43 | Emergency (ER) | payer MEDICARE, OTHER ==
[2016-08-16] MEDS ORDERED: ACETAMINOPHEN IV (For NPO) 1,000 MG in EMPTY BAG 1 BAG IVPB STA (14:26)
--- NOTE | 2016-08-16 14:27 | ED ---
General Adult HPI - General Chief complaint: Head Injury Stated complaint: Fell/headaches Time Seen by Provider: 08/16/16 14:09 Source: patient, family, RN notes reviewed Mode of arrival: wheelchair Limitations: no limitations - History of Present Illness Initial comments: 66 year old female with history of dementia presenting for headache. Sister who is primary caregiver states that she did fall 2 days ago and hit her head on a door. States she did not any loss consciousness that time. She does not use any blood thinners. However she has complained of persistent headache today. Sister states she has a history of dementia and seems like she's been more confused the past several days. She has been off of her normal pain medication because of an upcoming eye surgery on the of this month. There have been no fevers or chills. - Related Data Home Medications Medication Instructions Recorded Confirmed Albuterol Sulfate [Proair Hfa] 2 puff INHALATION RT-Q4H PRN 06/24/14 08/16/16 Donepezil [Aricept] 10 mg PO QAM 02/07/15 08/16/16 traMADol HCL [Ultram] 50 mg PO BID 03/21/16 08/16/16 Loratadine 10 mg PO DAILY 06/28/16 08/16/16 Montelukast Sodium [Singulair] 10 mg PO HS 06/28/16 08/16/16 Omeprazole [PriLOSEC] 20 mg PO HS 06/28/16 08/16/16 Atorvastatin [Lipitor] 10 mg PO HS 07/15/16 08/16/16 Ipratropium-Albuterol Nebulize 3 ml INHALATION RT-TID 07/15/16 08/16/16 [Duoneb 0.5 mg-3 mg/3 ml Soln] Memantine HCl [Namenda Xr] 28 mg PO DAILY 07/15/16 08/16/16 Mirtazapine [Remeron] 15 mg PO HS 07/15/16 08/16/16 Sertraline [Zoloft] 50 mg PO DAILY 08/16/16 08/16/16 risperiDONE [RisperDAL] 1 mg PO HS 08/16/16 08/16/16 Allergies Allergy/AdvReac Type Severity Reaction Status Date / Time baclofen Allergy Unknown Psychotic Verified 08/16/16 14:45 Episode codeine Allergy Rash/Hives Verified 08/16/16 14:45 lorazepam [From Ativan] Allergy Rash/Hives Verified 08/16/16 14:45 oxaprozin [From Daypro] Allergy Rash/Hives Verified 08/16/16 14:45 Sulfa (Sulfonamide Allergy Rash/Hives Verified 08/16/16 14:45 Antibiotics) cyclobenzaprine HCl AdvReac Confusion Verified 08/16/16 14:45 [From Flexeril] Review of Systems ROS Statement: Those systems with pertinent positive or pertinent negative responses have been documented in the HPI. ROS Other: All systems not noted in ROS Statement are negative. Past Medical History Past Medical History: Asthma, Heart Failure, COPD, Dementia, Diabetes Mellitus, Deep Vein Thrombosis (DVT), GERD/Reflux, Hyperlipidemia, Myocardial Infarction ( ID), Osteoarthritis (OA), Pneumonia, Renal Disease, Seizure Disorder, Sleep Apnea/CPAP/BIPAP, Vascular Disorder Additional Past Medical History / Comment(s): Recent pneumonia and past pneumonia, diverticulosis, sleep apnea HAS CPAP,MURMUR, SEIZURES IN THE S( EPILEPSY) NO SEIZURES SINCE 1974- NOT ON MEDS FOR IT ANYMORE, IBS, PAD, TMJ, anemia, nephrolithiasis, stomach ulcer, ESTEFANY-has CPAP but pulls off at times, as child has needle in her head. Last Myocardial Infarction Date:: 1991 History of Any Multi-Drug Resistant Organisms: None Reported Past Surgical History: Adenoidectomy, Appendectomy, Bowel Resection, Cholecystectomy, Hernia Repair, Hysterectomy, Orthopedic Surgery, Tonsillectomy Additional Past Surgical History / Comment(s): partial colon resection with colostomy then reversal, SILVERIO KNEE ARTHROSCOPY,Right KNEE REPLACEMENT, EGDs and colonoscopies, lipomas off back, cyst off spine. Past Anesthesia/Blood Transfusion Reactions: Previous Problems w/ Anesthesia, Motion Sickness Additional Past Anesthesia/Blood Transfusion Reaction / Comment(s): DIFFICULTY WAKING UP. CLAUSTERPHOBIC Past Psychological History: Anxiety, Bipolar Additional Psychological History / Comment(s): DYSLEXIA but is able to read and write with some difficulty. Pt resides with her sisters, Reny who is also her legal guardian and Michelle. They are her caretakers. Pt uses a walker to ambulate. She does not drive, Michelle takes her to [employer]. Smoking Status: Former smoker Past Alcohol Use History: None Reported Additional Past Alcohol Use History / Comment(s): STARTED SMOKNG AT AGE 16, SMOKED 1 CIG PER DAY QUIT 1982 Past Drug Use History: None Reported - Past Family History Father Family Medical History: Cancer Additional Family Medical History / Comment(s): Father had lung cancer. Mother Family Medical History: Congestive Heart Failure (CHF), Dementia, Myocardial Infarction (ID) General Exam - General Exam Comments Initial Comments: General: Awake and Alert. No acute distress. Does not appear acutely ill. Eyes: ALICIA, EOM intact. No nystagmus. No scleral icterus. HENT: Atraumatic, normocephalic. Mucous membranes moist. Trachea midline. Small bruise to right brow. No mastoid tenderness. No septal deviation. Neck: The neck is supple, there is no tenderness or JVD. Cardiovascular: Regular rate and rhythm. No murmur, rub, or gallop is appreciated. Distal pulses intact. Respiratory: Lungs are clear to auscultation bilaterally. No wheezes, rales, rhonchi. No respiratory distress. Gastrointestinal: Soft, Nontender. No rebound or guarding. Non-distended. No masses or organomegaly noted. No CVA tenderness. Musculoskeletal: No tenderness. Normal ROM. No gross deformity. No strength deficits. Neurological: A&Ox1 - baseline. CN II-XII grossly intact, There are no obvious motor or sensory deficits. Coordination appears grossly intact. Speech is normal. Skin: Skin is warm and dry and no rashes or lesions are noted. Psychiatric: Cooperative, appropriate mood & affect, normal judgment. Limitations: no limitations Course Vital Signs 08/16/16 13:04 Temperature 98.4 F Pulse Rate 84 Respiratory 16 Rate Blood Pressure 123/66 O2 Sat by Pulse 98 Oximetry EKG Findings - EKG Comments: EKG Findings:: EKG 14:52. Normal sinus rhythm. Rate 78. KS 166. QRS 70. QT/ QTC 364/414. Normal axis. No STEMI. Normal EKG. Similar to 07/14/16. Medical Decision Making - Medical Decision Making 66-year-old female with history of dementia presenting after fall 2 days ago. Patient is been complaining of headache today. Possible mental status changes persist or. On initial exam patient is awake and alert wasn't and interactive. She has a small bruise to her right brow. CT head was performed without evidence of acute bleed. There is no LOC or history of blood thinner use. Patient was given IV Tylenol with improvement of her headache. Lab work was performed and grossly unremarkable. EKG without evidence of ischemia or acute changes. UA without evidence of infection. Patient was reevaluated, remained stable during the course in ED. Updated sister on results and imaging. Pt states her headache is fully resolved. Discussed reassuring findings today. Discussed possibility of concussion given head injury. Discussed continued monitoring at home. Sister feels comfortable taking the patient home at this time. Discussed transient changes in awareness are likely secondary to dementia as opposed to acute delirium at this time. Discussed close follow-up with PCP. Discussed concerning signs symptoms for immediate return to the ED. Sister is agreeable with plan and discharge home. - Lab Data Result diagrams: 08/16/16 15:00 08/16/16 15:00 Lab Results 08/16/16 08/16/16 08/16/16 Range/Units 15:00 15:00 16:26 WBC 8.8 (3.8-10.6) k/uL RBC 4.08 (3.80-5.40) m/uL Hgb 12.2 (11.4-16.0) gm/dL Hct 37.0 (34.0-46.0) % MCV 90.6 (80.0-100.0) fL MCH 29.8 (25.0-35.0) pg MCHC 32.9 (31.0-37.0) g/dL RDW 13.0 (11.5-15.5) % Plt Count 173 (150-450) k/uL Neutrophils % 81 % Lymphocytes % 11 % Monocytes % 5 % Eosinophils % 1 % Basophils % 1 % Neutrophils # 7.1 (1.3-7.7) k/uL Lymphocytes # 1.0 (1.0-4.8) k/uL Monocytes # 0.5 (0-1.0) k/uL Eosinophils # 0.1 (0-0.7) k/uL Basophils # 0.1 (0-0.2) k/uL Sodium 140 (137-145) mmol/L Potassium 4.6 (3.5-5.1) mmol/L Chloride 105 (98-107) mmol/L Carbon Dioxide 25 (22-30) mmol/L Anion Gap 10 mmol/L BUN 19 H (7-17) mg/dL Creatinine 0.85 (0.52-1.04) mg/dL Est GFR (MDRD) Af Amer >60 (>60 ml/min/1.73 sqM) Est GFR (MDRD) Non-Af >60 (>60 ml/min/1.73 sqM) Glucose 98 (74-99) mg/dL Calcium 9.3 (8.4-10.2) mg/dL Urine Color Light Yellow Urine Appearance Clear (Clear) Urine pH 5.5 (5.0-8.0) Ur Specific [place] 1.007 (1.001-1.035) Urine Protein Negative (Negative) Urine Glucose (UA) Negative (Negative) Urine Ketones Negative (Negative) Urine Blood Negative (Negative) Urine Nitrite Negative (Negative) Urine Bilirubin Negative (Negative) Urine Urobilinogen <2.0 (<2.0) mg/dL Ur Leukocyte Esterase Negative (Negative) - EKG Data -: EKG Interpreted by [place] EKG shows normal: sinus rhythm Rate: normal When compared to previous EKG there are: no significant change Interpretation: no acute changes - Radiology Data Radiology results: report reviewed, image reviewed Disposition Clinical Impression: Fall, Head injury, Nonintractable headache, Dementia Disposition: HOME SELF-CARE Condition: Stable Instructions: Concussion (ED), Fall Prevention for Older Adults (ED) Additional Instructions: Tylenol or Motrin are fine for pain or headache. You may want to call the eye doctor to see if she can take Tramadol or not. Referrals: Jerry Golden DO [Primary Care Provider] - 1-2 days Time of Disposition: 16:55 Decision Time: 16:55
[2016-08-16 15:30] LABS: Basophils # (A) 0.1 k/uL (0-0.2); Basophils % (A) 1 %; CH 30.1; CHCM 33.4; Eosinophils # (A) 0.1 k/uL (0-0.7); Eosinophils % (A) 1 %; HDW 2.52; HGB 12.2 gm/dL (11.4-16.0); Luc % (Auto) 1; Lymphocytes % (A) 11 %; MCH 29.8 pg (25.0-35.0); MCHC 32.9 g/dL (31.0-37.0); MCV 90.6 fL (80.0-100.0); Mean Platelet Volume 7.6; Monocytes # (A) 0.5 k/uL (0-1.0); Monocytes % (A) 5 %; Neutrophils # (A) 7.1 k/uL (1.3-7.7); Neutrophils % (A) 81 %; RBC 4.08 m/uL (3.80-5.40); WBC 8.8 k/uL (3.8-10.6); WBC (Perox) 8.97
[2016-08-16 15:38] LABS: Anion Gap 10 mmol/L; Blood Urea Nitrogen 19 mg/dL (7-17); Calcium 9.3 mg/dL (8.4-10.2); Carbon Dioxide 25 mmol/L (22-30); Chloride 105 mmol/L (98-107); Glucose 98 mg/dL (74-99); Non-African American GFR(MDRD) >60 (>60 ml/min/1.73 sqM); Potassium 4.6 mmol/L (3.5-5.1); Sodium 140 mmol/L (137-145)
--- NOTE | 2016-08-16 15:40 | XR ---
EXAMINATION TYPE: XR chest 2V DATE OF EXAM: 08/16/2016 3:35 PM COMPARISON: 07/14/2016 TECHNIQUE: PA and lateral views submitted. HISTORY: Altered mental status FINDINGS: The lungs are clear and there is no pneumothorax, pleural effusion, or focal pneumonia. Hypertrophic and degenerative change of the spine noted. Surgical clips in the right upper quadrant o f the abdomen. Heart is enlarged. Arthropathy shoulders. No overt failure. IMPRESSION: 1. Cardiomegaly.
--- NOTE | 2016-08-16 15:43 | CT ---
EXAMINATION TYPE: CT brain wo con DATE OF EXAM: 08/16/2016 3:28 PM HISTORY: Fall yesterday, frontal injury and headache. CT DLP: 999.80 mGycm. Automated Exposure Control for Dose Reduction was Utilized. TECHNIQUE: CT scan of the head is performed without contrast. COMPARISON: CT brain February 09, 2015. FINDINGS: There is no acute intracranial hemorrhage or midline shift identified. There is diffuse v entricular and sulcal prominence consistent with diffuse age-related cerebral atrophy. There is low- attenuation in the periventricular white matter consistent with chronic small vessel ischemic change. Hyperostosis frontalis is redemonstrated. Patchy soft tissue density bilateral external auditory can al is felt to reflect cerumen. Visualized paranasal sinuses are clear. The globes are intact bilatera lly. IMPRESSION: No acute intracranial hemorrhage or midline shift. There is mild to moderate diffuse ag e-related cerebral atrophy and chronic small vessel ischemic change redemonstrated without significan t change from prior study seen.
[2016-08-16 16:50] LABS: Appearance,Urine Clear (Clear); Bilirubin,Urine Negative (Negative); Glucose,Urine (UA) Negative (Negative); Ketones,Urine Negative (Negative); Leukocyte Esterase,Urine Negative (Negative); Nitrite,Urine Negative (Negative); PH, Urine 5.5 (5.0-8.0); Protein,Urine Negative (Negative); Specific Gravity,Urine 1.007 (1.001-1.035); UA Billing (MACRO vs. MICRO) CHEM; Urobilinogen,Urine <2.0 mg/dL (<2.0)
[2016-08-16 17:08] VITALS: BP 130/76; PULSE 83; RESP 18; TEMP 98.2
== END 2016-08-16 17:08 | disposition home or self-care (01) ==
LOC: EC 12:43
DX: S09.90XA Unspecified injury of head, initial encounter (principal); W01.198A Fall on same level from slipping, tripping and stumbling with subsequent striking against other object, initial encounter; J45.909 Unspecified asthma, uncomplicated; E78.5 Hyperlipidemia, unspecified; F03.90 Unspecified dementia, unspecified severity, without behavioral disturbance, psychotic disturbance, mood disturbance, and anxiety; F41.9 Anxiety disorder, unspecified; R48.0 Dyslexia and alexia; Z87.891 Personal history of nicotine dependence; Z86.718 Personal history of other venous thrombosis and embolism; K21.9 Gastro-esophageal reflux disease without esophagitis; G40.909 Epilepsy, unspecified, not intractable, without status epilepticus; J44.9 Chronic obstructive pulmonary disease, unspecified; I25.2 Old myocardial infarction; F31.9 Bipolar disorder, unspecified; Z79.891 Long term (current) use of opiate analgesic; Z79.899 Other long term (current) drug therapy; Z88.6 Allergy status to analgesic agent; Z88.8 Allergy status to other drugs, medicaments and biological substances; Z88.5 Allergy status to narcotic agent; Z88.1 Allergy status to other antibiotic agents
CPT/HCPCS: 36415; 93005; 80048; 85025; 81003; 71020; 70450; 99284; 96374; J0131

== ENCOUNTER 2016-09-02 23:51 | Inpatient (IN) | payer MEDICARE, OTHER ==
[2016-09-03] MEDS ORDERED: SODIUM CHLORIDE 0.9% 1,000 ML IV STA (00:29)
[2016-09-03] MEDS ORDERED: DIPH,PERTUS(ACELL)TETVAC-LF 0.5 ML VIAL IM ONE (00:30)
--- NOTE | 2016-09-03 00:38 | ED ---
General Adult HPI - General Chief complaint: Recheck/Abnormal Lab/Rx Stated complaint: Fall-Lip Lac/Nose Lac Time Seen by Provider: 09/03/16 00:19 Source: patient, family, RN notes reviewed Mode of arrival: EMS Limitations: no limitations - History of Present Illness Initial comments: Patient is a 66-year-old female who presents emergency room today by EMS, the chief complaint of a fall that occurred just prior to arrival. Patient states she was on her way to go to the bathroom admitted the bathroom and states she got lightheaded dizzy falling hitting her nose and face on the floor causing laceration to the bridge of her nose. She does admit to recent eye surgery just 2 days ago where they corrected some eye ducks bilaterally. Patient states that she is experiencing some congestion in the nose and difficult time breathing through her nose. She denies any headache. States she's not on blood thinners. Denies any other complaints currently. Patient denies any recent fever, chills, shortness of breath, chest pain, back pain, abdominal pain , nausea or vomiting, numbness or tingling, dysuria or hematuria, constipation or diarrhea, headaches or visual changes, or any other complaints. - Related Data Home Medications Medication Instructions Recorded Confirmed Albuterol Sulfate [Proair Hfa] 2 puff INHALATION RT-Q4H PRN 06/24/14 08/16/16 Donepezil [Aricept] 10 mg PO QAM 02/07/15 08/16/16 traMADol HCL [Ultram] 50 mg PO BID 03/21/16 08/16/16 Loratadine 10 mg PO DAILY 06/28/16 08/16/16 Montelukast Sodium [Singulair] 10 mg PO HS 06/28/16 08/16/16 Omeprazole [PriLOSEC] 20 mg PO HS 06/28/16 08/16/16 Atorvastatin [Lipitor] 10 mg PO HS 07/15/16 08/16/16 Ipratropium-Albuterol Nebulize 3 ml INHALATION RT-TID 07/15/16 08/16/16 [Duoneb 0.5 mg-3 mg/3 ml Soln] Memantine HCl [Namenda Xr] 28 mg PO DAILY 07/15/16 08/16/16 Mirtazapine [Remeron] 15 mg PO HS 07/15/16 08/16/16 Sertraline [Zoloft] 50 mg PO DAILY 08/16/16 08/16/16 risperiDONE [RisperDAL] 1 mg PO HS 08/16/16 08/16/16 Allergies Allergy/AdvReac Type Severity Reaction Status Date / Time baclofen Allergy Unknown Psychotic Verified 09/02/16 23:55 Episode codeine Allergy Rash/Hives Verified 09/02/16 23:55 lorazepam [From Ativan] Allergy Rash/Hives Verified 09/02/16 23:55 oxaprozin [From Daypro] Allergy Rash/Hives Verified 09/02/16 23:55 Sulfa (Sulfonamide Allergy Rash/Hives Verified 09/02/16 23:55 Antibiotics) cyclobenzaprine HCl AdvReac Confusion Verified 09/02/16 23:55 [From Flexeril] Review of Systems ROS Statement: Those systems with pertinent positive or pertinent negative responses have been documented in the HPI. ROS Other: All systems not noted in ROS Statement are negative. Past Medical History Past Medical History: Asthma, Heart Failure, COPD, Dementia, Diabetes Mellitus, Deep Vein Thrombosis (DVT), GERD/Reflux, Hyperlipidemia, Myocardial Infarction ( [place]), Osteoarthritis (OA), Pneumonia, Renal Disease, Seizure Disorder, Sleep Apnea/CPAP/BIPAP, Vascular Disorder Additional Past Medical History / Comment(s): Recent pneumonia and past pneumonia, diverticulosis, sleep apnea HAS CPAP,MURMUR, SEIZURES IN THE 1969'S( EPILEPSY) NO SEIZURES SINCE 1974- NOT ON MEDS FOR IT ANYMORE, IBS, PAD, TMJ, anemia, nephrolithiasis, stomach ulcer, ESTEFANY-has CPAP but pulls off at times, as child has needle in her head. Last Myocardial Infarction Date:: 1991 History of Any Multi-Drug Resistant Organisms: None Reported Past Surgical History: Adenoidectomy, Appendectomy, Bowel Resection, Cholecystectomy, Hernia Repair, Hysterectomy, Orthopedic Surgery, Tonsillectomy Additional Past Surgical History / Comment(s): partial colon resection with colostomy then reversal, SILVERIO KNEE ARTHROSCOPY,Right KNEE REPLACEMENT, EGDs and colonoscopies, lipomas off back, cyst off spine, eye surgery Past Anesthesia/Blood Transfusion Reactions: Previous Problems w/ Anesthesia, Motion Sickness Additional Past Anesthesia/Blood Transfusion Reaction / Comment(s): DIFFICULTY WAKING UP. CLAUSTERPHOBIC Past Psychological History: Anxiety, Bipolar Additional Psychological History / Comment(s): DYSLEXIA but is able to read and write with some difficulty. Pt resides with her sisters, Reny who is also her legal guardian and Michelle. They are her caretakers. Pt uses a walker to ambulate. She does not drive, Michelle takes her to appts. Smoking Status: Former smoker Past Alcohol Use History: None Reported Additional Past Alcohol Use History / Comment(s): STARTED SMOKNG AT AGE 16, SMOKED 1 CIG PER DAY QUIT 1982 Past Drug Use History: None Reported - Past Family History Father Family Medical History: Cancer Additional Family Medical History / Comment(s): Father had lung cancer. Mother Family Medical History: Congestive Heart Failure (CHF), Dementia, Myocardial Infarction ([place]) General Exam - General Exam Comments Initial Comments: General: The patient is awake and alert, in no distress, and does not appear acutely ill. Eye: Pupils are equal, round and reactive to light, extra-ocular movements are intact. No nystagmus. There is normal conjunctiva bilaterally. No signs of icterus. Ears, nose, mouth and throat: There are moist mucous membranes and no oral lesions. No evidence of septal hematoma. There is bright red blood clot in the right nostril. Posterior pharynx is clear. Neck: The neck is supple, there is no tenderness or JVD. Cardiovascular: There is a regular rate and rhythm. No murmur, rub or gallop is appreciated. Respiratory: Lungs are clear to auscultation, respirations are non-labored, breath sounds are equal. No wheezes, stridor, rales, or rhonchi. Gastrointestinal: Soft, non-distended, non-tender abdomen without masses or organomegaly noted. There is no rebound or guarding present. No CVA tenderness. Bowel sounds are unremarkable. Musculoskeletal: Normal ROM, no tenderness. Strength 5/5. Sensation intact. Pulses equal bilaterally 2+. Neurological: A&O x 3. CN II-XII intact, There are no obvious motor or sensory deficits. Coordination appears grossly intact. Speech is normal. Skin: Bilateral bruising swelling locally to her eyes. Small cut over the nasal bridge running horizontally Sruthi 0.5 cm. No active bleeding. Psychiatric: Cooperative, appropriate mood & affect, normal judgment. Limitations: no limitations Course Vital Signs 09/03/16 09/03/1617 00:01 00:48 00:52 Temperature 97.0 F L Pulse Rate 68 61 Pulse Rate [ 64 Sitting Pulse Oximetery] Pulse Rate [ 67 Standing Pulse Oximetery] Pulse Rate [ 56 L Supine Pulse Oximetery] Respiratory 18 18 Rate Blood Pressure 142/64 145/74 Blood Pressure 145/73 [Right Arm Sitting] Blood Pressure 145/74 [Right Arm Standing] Blood Pressure 135/74 [Right Arm Supine] O2 Sat by Pulse 97 96 Oximetry Medical Decision Making - Medical Decision Making Patient's CT reviewed does show evidence for nasal fracture. No acute findings. Patient's laceration over the nasal bridge closed with Dermabond. Patient still unsteady on her feet. Labs been reviewed. Case discussed with attending physician Dr. Weiss per patient will be admitted for ataxia, syncopal episode. Patient and family member at bedside where the plan. - Lab Data Result diagrams: 09/03/16 01:02 09/03/16 01:02 Lab Results 09/03/16 09/03/16 09/03/16 Range/Units 01:02 01:02 01:02 WBC 8.3 (3.8-10.6) k/uL RBC 4.20 (3.80-5.40) m/uL Hgb 12.6 (11.4-16.0) gm/dL Hct 38.0 (34.0-46.0) % MCV 90.5 (80.0-100.0) fL MCH 30.0 (25.0-35.0) pg MCHC 33.1 (31.0-37.0) g/dL RDW 12.9 (11.5-15.5) % Plt Count 185 (150-450) k/uL Neutrophils % 72 % Lymphocytes % 16 % Monocytes % 7 % Eosinophils % 3 % Basophils % 1 % Neutrophils # 5.9 (1.3-7.7) k/uL Lymphocytes # 1.4 (1.0-4.8) k/uL Monocytes # 0.6 (0-1.0) k/uL Eosinophils # 0.3 (0-0.7) k/uL Basophils # 0.1 (0-0.2) k/uL PT (9.0-12.0) sec INR (<1.1) APTT (22.0-30.0) sec Sodium 143 (137-145) mmol/L Potassium 4.0 (3.5-5.1) mmol/L Chloride 106 (98-107) mmol/L Carbon Dioxide 27 (22-30) mmol/L Anion Gap 10 mmol/L BUN 17 (7-17) mg/dL Creatinine 0.90 (0.52-1.04) mg/dL Est GFR (MDRD) Af Amer >60 (>60 ml/min/1.73 sqM) Est GFR (MDRD) Non-Af >60 (>60 ml/min/1.73 sqM) Glucose 107 H (74-99) mg/dL Calcium 9.1 (8.4-10.2) mg/dL Magnesium 2.0 (1.6-2.3) mg/dL Total Bilirubin 0.3 (0.2-1.3) mg/dL AST 109 H (14-36) U/L ALT 81 H (9-52) U/L Alkaline Phosphatase 121 (38-126) U/L Total Creatine Kinase 502 H (30-135) U/L CK-MB (CK-2) 8.3 H* (0.0-2.4) ng/mL CK-MB (CK-2) Rel Index 1.7 Troponin I <0.012 (0.000-0.034) ng/mL Total Protein 5.9 L (6.3-8.2) g/dL Albumin 3.6 (3.5-5.0) g/dL 09/03/16 Range/Units 01:02 WBC (3.8-10.6) k/uL RBC (3.80-5.40) m/uL Hgb (11.4-16.0) gm/dL Hct (34.0-46.0) % MCV (80.0-100.0) fL MCH (25.0-35.0) pg MCHC (31.0-37.0) g/dL RDW (11.5-15.5) % Plt Count (150-450) k/uL Neutrophils % % Lymphocytes % % Monocytes % % Eosinophils % % Basophils % % Neutrophils # (1.3-7.7) k/uL Lymphocytes # (1.0-4.8) k/uL Monocytes # (0-1.0) k/uL Eosinophils # (0-0.7) k/uL Basophils # (0-0.2) k/uL PT 10.0 (9.0-12.0) sec INR 1.0 (<1.1) APTT 25.8 (22.0-30.0) sec Sodium (137-145) mmol/L Potassium (3.5-5.1) mmol/L Chloride (98-107) mmol/L Carbon Dioxide (22-30) mmol/L Anion Gap mmol/L BUN (7-17) mg/dL Creatinine (0.52-1.04) mg/dL Est GFR (MDRD) Af Amer (>60 ml/min/1.73 sqM) Est GFR (MDRD) Non-Af (>60 ml/min/1.73 sqM) Glucose (74-99) mg/dL Calcium (8.4-10.2) mg/dL Magnesium (1.6-2.3) mg/dL Total Bilirubin (0.2-1.3) mg/dL AST (14-36) U/L ALT (9-52) U/L Alkaline Phosphatase (38-126) U/L Total Creatine Kinase (30-135) U/L CK-MB (CK-2) (0.0-2.4) ng/mL CK-MB (CK-2) Rel Index Troponin I (0.000-0.034) ng/mL Total Protein (6.3-8.2) g/dL Albumin (3.5-5.0) g/dL Disposition Clinical Impression: Syncope, Ataxia, Nasal fracture Disposition: ADMITTED IP TO THIS HOSP Condition: Stable Time of Disposition: 02:44
[2016-09-03 01:18] LABS: Basophils # (A) 0.1 k/uL (0-0.2); Basophils % (A) 1 %; CH 29.6; CHCM 32.8; Eosinophils # (A) 0.3 k/uL (0-0.7); Eosinophils % (A) 3 %; HDW 2.52; HGB 12.6 gm/dL (11.4-16.0); Luc # (Auto) 0.11; Luc % (Auto) 1; Lymphocytes # (A) 1.4 k/uL (1.0-4.8); Lymphocytes % (A) 16 %; MCHC 33.1 g/dL (31.0-37.0); MCV 90.5 fL (80.0-100.0); Mean Platelet Volume 7.4; Monocytes # (A) 0.6 k/uL (0-1.0); Monocytes % (A) 7 %; Neutrophils # (A) 5.9 k/uL (1.3-7.7); Neutrophils % (A) 72 %; RDW 12.9 % (11.5-15.5); WBC 8.3 k/uL (3.8-10.6); WBC (Perox) 9.19
[2016-09-03 01:29] LABS: ALT 81 U/L (9-52); AST 109 U/L (14-36); Alkaline Phosphatase 121 U/L (38-126); Anion Gap 10 mmol/L; Blood Urea Nitrogen 17 mg/dL (7-17); Calcium 9.1 mg/dL (8.4-10.2); Carbon Dioxide 27 mmol/L (22-30); Chloride 106 mmol/L (98-107); Glucose 107 mg/dL (74-99); Non-African American GFR(MDRD) >60 (>60 ml/min/1.73 sqM); Sodium 143 mmol/L (137-145); Total Bilirubin 0.3 mg/dL (0.2-1.3); Total Protein 5.9 g/dL (6.3-8.2)
[2016-09-03 01:32] LABS: Partial Thromboplastin Time 25.8 sec (22.0-30.0)
[2016-09-03 01:37] LABS: Creatine Kinase 502 U/L (30-135)
[2016-09-03 01:50] LABS: Troponin I <0.012 ng/mL (0.000-0.034)
[2016-09-03 01:54] LABS: Creatine Kinase MB 8.3 ng/mL (0.0-2.4)
--- NOTE | 2016-09-03 01:58 | XR ---
EXAM: XR Chest, 2 Views. CLINICAL HISTORY: Dizziness, history of myocardial infarction TECHNIQUE: Frontal and lateral views of the chest. COMPARISON: Chest x-ray 08/16/2016 FINDINGS: Lungs: Unremarkable. No consolidation. Pleural space: Unremarkable. No pneumothorax. Heart: Unremarkable. No cardiomegaly. Mediastinum: Unremarkable. Bones/joints: Unremarkable. IMPRESSION: No acute cardiopulmonary process.
--- NOTE | 2016-09-03 02:19 | CT ---
EXAM: CT Head Without Intravenous Contrast. CLINICAL HISTORY: Ground-level fall with facial trauma. TECHNIQUE: Axial computed tomography images of the head/brain without intravenous contrast. CTDI is 60.3 mGy and DLP is 1144.7 mGy-cm This CT exam was performed using one or more of the following dose reduction techniques: automated exposure control, adjustment of the mA and/or kV according to patient size, and/or use of iterative reconstruction technique. Coronal and sagittal reformatted images were created and reviewed. COMPARISON: CT head 08/16/2016 FINDINGS: Brain: Moderate volume loss and moderate hypoattenuation in the periventricular/subcortical white matter likely indicative of chronic microvascular ischemic change. No intracranial hemorrhage or CT evidence of acute cortical infarction. No extra-axial fluid collection. Ventricles: Ventriculomegaly commensurate with volume loss. No midline shift. Bones/joints: Hyperostosis frontalis interna without depressed calvarial fracture. Degenerative change of the bilateral temporomandibular joints. Soft tissues: Unremarkable. Sinuses: Trace ethmoid air cell, maxillary sinus, and sphenoid sinus mucosal thickening. Mastoid air cells: Trace right mastoid fluid. IMPRESSION: 1. No intracranial hemorrhage or depressed calvarial fracture. 2. Volume loss and chronic microvascular ischemic change without CT evidence of acute cortical infarction. 3. Additional incidental/chronic findings as above. 4. Please see facial CT report for further detail.
--- NOTE | 2016-09-03 02:26 | CT ---
EXAM: CT Maxillofacial Without Intravenous Contrast. CLINICAL HISTORY: Ground-level fall, facial trauma, bilateral orbital bruising, laceration to the nasal bridge TECHNIQUE: Axial computed tomography images of the face without intravenous contrast. CTDI is 60.3 mGy and DLP is 1144.7 mGy-cm cumulative radiation dose for the CT head and CT facial evaluations. This CT exam was performed using one or more of the following dose reduction techniques: automated exposure control, adjustment of the mA and/or kV according to patient size, and/or use of iterative reconstruction technique. Coronal and sagittal reformatted images were created and reviewed. COMPARISON: No relevant prior studies available. FINDINGS: Bones/joints: Age indeterminant nondisplaced right nasal bone fracture. No displaced orbital, mandibular, or maxillary fracture. Bilateral temporomandibular joint space narrowing and osteophytosis. Soft tissues: 3.2 mm cutaneous nodule along the right nasal bridge and 3.9 mm cutaneous nodule along the right cheek. Orbits: Unremarkable. No intraconal retrobulbar hematoma and no CT evidence of acute globe injury. Sinuses: Trace bilateral maxillary sinus, sphenoid sinus, and ethmoid air cell mucosal thickening without air-fluid level. Nasopharynx: Contusion over the nasal bridge and bilateral infraorbital contusions. Oropharynx: Torus palatini. No significant tonsillar enlargement. Other findings: Smooth expansion of the incisive canal likely represents an incisive canal cyst. IMPRESSION: 1. Age-indeterminate nondisplaced right nasal bone fracture. 2. No displaced orbital fracture. 3. Contusion over the nasal bridge and bilateral infraorbital contusions. 4. 3.2 mm cutaneous nodule along the right nasal bridge and 3.9 mm cutaneous nodule along the right cheek. Correlate with inspection. 5. Trace paranasal sinus mucosal thickening without air-fluid level. 6. Additional incidental/chronic findings as above.
[2016-09-03] MEDS ORDERED: ONDANSETRON 4 MG/2 ML VIAL IVP PRN (02:49)
[2016-09-03] MEDS ORDERED: SODIUM CHLORIDE 0.9% 1,000 ML IV ONE (02:49)
[2016-09-03] MEDS ORDERED: NALOXONE 0.4 MG/ML 1 ML VIAL IV PRN (02:49)
[2016-09-03] MEDS ORDERED: ACETAMINOPHEN TAB 325 MG TAB PO PRN (02:49)
[2016-09-03] MEDS ORDERED: TOPICAL SKIN ADHESIVE 1 EACH AMP TOPICAL ONE (02:52)
[2016-09-03 04:25] VITALS: BMI 25.9
[2016-09-03] MEDS: INSULIN LISPRO (humaLOG) 300 UNIT/3 ML VIAL SQ SCH ×4 (07:36→21:09)
[2016-09-03 07:38] LABS: Glucose,Whole Blood 95 mg/dL (75-99)
[2016-09-03] MEDS ORDERED: ALBUTEROL INHALER 60 PUFF/8 GM INHALER INHALATION PRN (10:38)
[2016-09-03] MEDS ORDERED: ALBUTEROL NEBULIZED 2.5 MG/3 ML INHALATION PRN (10:42)
[2016-09-03] MEDS ORDERED: traMADol 50 MG TAB PO SCH (10:45)
[2016-09-03] MEDS ORDERED: glipiZIDE 5 MG TAB PO SCH (11:00)
[2016-09-03] MEDS ORDERED: LORATADINE 10 MG TAB PO SCH (11:00)
[2016-09-03] MEDS: SERTRALINE 100 MG TAB PO SCH (11:31)
[2016-09-03] MEDS: DONEPEZIL 10 MG TAB PO SCH (11:32)
[2016-09-03] MEDS: PANTOPRAZOLE 40 MG TABLET PO SCH (11:32)
[2016-09-03] MEDS: MONTELUKAST 10 MG TAB PO SCH (11:32)
[2016-09-03] MEDS ORDERED: ALBUTEROL NEBULIZED 2.5 MG/3 ML INHALATION SCH (12:00)
[2016-09-03] MEDS ORDERED: IPRATROPIUM 0.5 MG/2.5 ML NEBU INHALATION SCH (12:00)
[2016-09-03 12:08] LABS: Glucose,Whole Blood 113 mg/dL (75-99)
[2016-09-03 15:33] LABS: Hepatitis B Surface Ag Index 0.08
[2016-09-03 15:38] LABS: Hepatitis B Core IgM Index 0.03
[2016-09-03 15:50] LABS: Hepatitis C Virus IgG Index 0.01
[2016-09-03 15:52] LABS: Hepatitis C Virus IgG Ab Negative (Negative)
[2016-09-03] MEDS: IPRATROPIUM-ALBUTEROL 3 ML NEB INHALATION SCH ×2 (15:59→19:36)
[2016-09-03 17:17] LABS: Glucose,Whole Blood 91 mg/dL (75-99)
--- NOTE | 2016-09-03 18:28 | P.CNNES ---
History of Present Illness Consult date: 09/03/16 History of Present Illness: The patient is a 66-year-old right-handed white female who states that she fell in the shower yesterday. He states that she has recurrent falls. Prior to her falls she feels lightheaded. She fell forward hitting the faucet and had brief loss of consciousness. Apparently her sister found her. She reports falling about 2 weeks ago when she walked into the bathtub and fell forward. She denies any focal weakness in her arms or legs. She denies any visual disturbance. As admit to dizziness as well as lightheadedness. Apparently the patient had recent tear duct surgery a few days ago. The patient presented to the emergency room yesterday and she had an x-ray of the face which showed right nasal bone fracture and bilateral infraorbital and nasal bone contusions. She had a CT of the brain which showed some volume loss and chronic microvascular ischemic changes. Review of Systems Eyes: denies blurred vision, denies pain Ears, nose, mouth and throat: Denies headache, Denies sore throat Cardiovascular: Denies chest pain, Denies shortness of breath Respiratory: Denies cough Gastrointestinal: Denies abdominal pain, Denies diarrhea, Denies nausea, Denies vomiting Genitourinary: Denies dysuria, Denies hematuria Musculoskeletal: Denies myalgias Integumentary: Denies pruritus, Denies rash Neurological: Denies numbness, Denies weakness Psychiatric: Denies anxiety, Denies depression Endocrine: Denies fatigue, Denies weight change Past Medical History Past Medical History: Asthma, Heart Failure, COPD, Dementia, Diabetes Mellitus, Deep Vein Thrombosis (DVT), GERD/Reflux, Hyperlipidemia, Myocardial Infarction ( [place]), Osteoarthritis (OA), Pneumonia, Renal Disease, Seizure Disorder, Sleep Apnea/CPAP/BIPAP, Vascular Disorder Additional Past Medical History / Comment(s): Recent pneumonia and past pneumonia, diverticulosis, sleep apnea HAS CPAP,MURMUR, SEIZURES IN THE 1969'S( EPILEPSY) NO SEIZURES SINCE 1974- NOT ON MEDS FOR IT ANYMORE, IBS, PAD, TMJ, anemia, nephrolithiasis, stomach ulcer, ESTEFANY-has CPAP but pulls off at times, as child has needle in her head. Last Myocardial Infarction Date:: 1991 History of Any Multi-Drug Resistant Organisms: None Reported Past Surgical History: Adenoidectomy, Appendectomy, Bowel Resection, Cholecystectomy, Hernia Repair, Hysterectomy, Orthopedic Surgery, Tonsillectomy Additional Past Surgical History / Comment(s): partial colon resection with colostomy then reversal, SILVERIO KNEE ARTHROSCOPY,Right KNEE REPLACEMENT, EGDs and colonoscopies, lipomas off back, cyst off spine, eye surgery Past Anesthesia/Blood Transfusion Reactions: Previous Problems w/ Anesthesia, Motion Sickness Additional Past Anesthesia/Blood Transfusion Reaction / Comment(s): DIFFICULTY WAKING UP. CLAUSTERPHOBIC Past Psychological History: Anxiety, Bipolar Additional Psychological History / Comment(s): DYSLEXIA but is able to read and write with some difficulty. Pt resides with her sisters, Reny who is also her legal guardian and Michelle. They are her caretakers. Dru uses a walker to ambulate. She does not drive, Michelle takes her to [employer]. Smoking Status: Former smoker Past Alcohol Use History: None Reported Additional Past Alcohol Use History / Comment(s): STARTED SMOKNG AT AGE 16, SMOKED 1 CIG PER DAY QUIT 1982 Past Drug Use History: None Reported - Past Family History Father Family Medical History: Cancer Additional Family Medical History / Comment(s): Father had lung cancer. Mother Family Medical History: Congestive Heart Failure (CHF), Dementia, Myocardial Infarction ([place]) Medications and Allergies Home Medications Medication Instructions Recorded Confirmed Type Albuterol Sulfate [Proair Hfa] 2 puff INHALATION RT-Q4H PRN 06/24/14 09/03/16 History Donepezil [Aricept] 10 mg PO QAM 02/07/15 09/03/16 History traMADol HCL [Ultram] 50 mg PO BID 03/21/16 09/03/16 History Loratadine 10 mg PO DAILY 06/28/16 09/03/16 History Montelukast Sodium [Singulair] 10 mg PO DAILY 06/28/16 09/03/16 History Omeprazole [PriLOSEC] 20 mg PO DAILY 06/28/16 09/03/16 History Atorvastatin [Lipitor] 10 mg PO HS 07/15/16 09/03/16 History Memantine HCl [Namenda Xr] 28 mg PO DAILY 07/15/16 09/03/16 History Mirtazapine [Remeron] 15 mg PO HS 07/15/16 09/03/16 History risperiDONE [RisperDAL] 2 mg PO HS 08/16/16 09/03/16 History Aspirin EC [Ecotrin Low Dose] 81 mg PO HS 09/03/16 09/03/16 History Famotidine [Pepcid] 20 mg PO BID 09/03/16 09/03/16 History Ipratropium Nebulized [Atrovent 0.5 mg INHALATION RT-QID PRN 09/03/16 09/03/16 History Nebulized] Sertraline [Zoloft] 200 mg PO DAILY 09/03/16 09/03/16 History glipiZIDE [Glucotrol] 5 mg PO AC-BRKFST 09/03/16 09/03/16 History Allergies Allergy/AdvReac Type Severity Reaction Status Date / Time baclofen Allergy Unknown Psychotic Verified 09/03/16 10:10 Episode codeine Allergy Rash/Hives Verified 09/03/16 10:10 lorazepam [From Ativan] Allergy Rash/Hives Verified 09/03/16 10:10 oxaprozin [From Daypro] Allergy Rash/Hives Verified 09/03/16 10:10 Sulfa (Sulfonamide Allergy Rash/Hives Verified 09/03/16 10:10 Antibiotics) cyclobenzaprine HCl AdvReac Confusion Verified 09/03/16 10:10 [From Flexeril] Physical Examination - Vital Signs Vital Signs: Vital Signs Temp Pulse Pulse Resp BP BP Pulse Ox 09/03/16 16:09 66 09/03/16 15:59 66 09/03/16 15:00 98.6 F 75 19 145/58 94 L 09/03/16 12:38 68 09/03/16 12:30 64 09/03/16 07:00 96.9 F L 57 L 17 135/57 97 09/03/16 04:10 96.6 F L 54 L 20 140/65 97 09/03/16 03:38 62 16 147/77 97 Intake and Output 09/03/16 09/03/16 09/03/16 06:59 14:59 22:59 Intake Total 100 Balance 100 Intake: Oral 100 Other: Voiding Method Toilet # Voids 1 6 # Bowel Movements 1 Weight 58.287 kg - Constitutional General appearance: average body habitus - EENT EENT: PERRL, hearing intact, vision intact - Respiratory Respiratory: lungs clear, normal breath sounds - Cardiovascular Cardiovascular: regular rate, normal S1, normal S2 - Integumentary Integumentary: normal - Neurologic Mental status she was awake alert and oriented there was no aphasia or dysarthria Cranial nerve examination: EOMI, VFF, V1/V2/V3 grossly intact, face symmetric, tongue midline Speech examination: intact Detailed motor examination: grossly full strength in all extremities Detailed sensory examination: intact - Psychiatric Psychiatric: mood/affect appropriate Results - Laboratory Findings CBC and BMP: 09/03/16 01:02 09/03/16 01:02 Abnormal Lab Findings: Abnormal Labs 09/03/16 11:51 POC Glucose (mg/dL) 113 H Assessment and Plan (1) Ataxia Status: Acute Code(s): R27.0 - ATAXIA, UNSPECIFIED (2) Syncope Status: Acute Code(s): R55 - SYNCOPE AND COLLAPSE (3) Nasal fracture Status: Acute Code(s): S02.2XXA - FRACTURE OF NASAL BONES, INIT ENCNTR FOR CLOSED FRACTURE (4) Head concussion Status: Acute Code(s): S06.0X9A - CONCUSSION W LOSS OF CONSCIOUSNESS OF UNSP DURATION, INIT Plan: The patient is a 66-year-old woman with history of ataxia and recurrent falls. She is admitted with a syncopal episode as well as facial contusion. On her most recent fall she is suffered bilateral infraorbital and nasal bone contusion. There was some brief loss of consciousness with her head concussion. Recommend further evaluation with EEG and carotid ultrasound also recommend PT to evaluate gait
[2016-09-03] MEDS ORDERED: MIRTAZAPINE 15 MG TAB PO SCH (21:00)
[2016-09-03] MEDS: ASPIRIN 81 MG CHEW PO SCH (21:03)
[2016-09-03] MEDS: risperiDONE 2 MG TAB PO SCH (21:04)
[2016-09-03] MEDS: MEMANTINE 10 MG TAB PO SCH (21:04)
[2016-09-03 21:11] LABS: Glucose,Whole Blood 110 mg/dL (75-99)
--- NOTE | 2016-09-03 21:25 | US ---
EXAMINATION TYPE: US carotid duplex BILAT DATE OF EXAM: 09/03/2016 9:00 PM COMPARISON: 02/08/2015 CLINICAL HISTORY: Syncope. EXAM MEASUREMENTS: RIGHT: Peak Systolic Velocity (PSV) cm/sec ----- Right CCA: 95.1 ----- Right ICA: 123.9 ----- Right ECA: 122.9 ICA/CCA ratio: 1.3 RIGHT: End Diastole cm/sec ----- Right CCA: 6.3 ----- Right ICA: 17.5 ----- Right ECA: 13.7 LEFT: Peak Systolic Velocity (PSV) cm/sec ----- Left CCA: 108.2 ----- Left ICA: 92.4 ----- Left ECA: 219.9 ICA/CCA ratio: 0.9 LEFT: End Diastole cm/sec ----- Left CCA: 13.6 ----- Left ICA: 13.6 ----- Left ECA: 16.4 VERTEBRALS (direction of flow): Right Vertebral: Antegrade Left Vertebral: Antegrade Mild amount of plaque visualized on the right, moderate amount of plaque visualized in the left bulb/ proximal ECA. Elevated velocities visualized in the left ECA. IMPRESSION: There is elevated velocity in the left external carotid artery that suggests more than 7 0% stenosis. There is antegrade flow in the vertebral arteries. There is bilateral plaque formation w ith an estimated stenosis of close to 50% stenosis in both internal carotid arteries. There is eviden ce for some progression of disease with higher velocities in the old exam. Criteria for Assigning % of Stenosis / Diameter reduction (Estimation based on the indirect measurements of the internal carotid artery velocities (ICA PSV). 1. Normal (no stenosis)=ICA PSV < 125 cm/s: ratio < 2.0: ICA EDV<40 cm/s. 2. Less than 50% stenosis=ICA PSV < 125 cm/s: ratio < 2.0: ICA EDV<40 cm/s. 3. 50 to 69% stenosis=ICA PSV of 125 to 230 cm/s: ration 2.0 ? 4.0: ICA EDV 40-100 cm/s. 4. Greater than 70% stenosis to near occlusion= ICA PSV > 230 cm/s: ratio > 4.0: ICA EDV > 100 cm/s. 5. Near occlusion= ICA PSV velocities may be low or undetectable: variable ratio and ICA EDV. 6. Total occlusion=unable to detect flow.
--- NOTE | 2016-09-04 08:01 | HP ---
DATE OF ADMISSION: The patient is a 66-year-old who came in after a fall in shower. Patient apparently appears to have lost consciousness. Denied any ( ), lightheaded and ( ). Patient has raccoon eyes secondary to that and patient says that it is secondary to the surgery that she had. Patient denied any visual disturbance. Patient denied fever, chills, nausea or vomiting. The patient ( ). Patient was extensively evaluated in the past for syncope. The patient had an echocardiogram in the recent past essentially within normal limits and patient does have any seizure-like activity, bowel or bladder incontinence. Neurology evaluated the patient. They are obtaining an EEG. PT and OT consultation. Patient's EKG showed minor sinus bradycardia, not low enough to cause syncopal episode. REVIEW OF SYSTEMS: CONSTITUTIONAL: No fever, no malaise, no fatigue. HEENT: No recent visual problems or hearing problems. Denied any sore throat. CARDIOVASCULAR: As described in HPI. PULMONARY: No shortness of breath, no cough, no hemoptysis. GASTROINTESTINAL: No diarrhea, no nausea, no vomiting, no abdominal pain. Normoactive bowel sounds. NEUROLOGICAL: As described in HPI. HEMATOLOGICAL: Denies any bleeding or petechiae. GENITOURINARY: Denies any burning micturition, frequency, or urgency. MUSCULOSKELETAL/RHEUMATOLOGICAL: Denies any joint pain, swelling, or any muscle pain. ENDOCRINE: Denies any polyuria or polydipsia. The rest of the 14 point review of systems is negative. Past medical history is significant for COPD, DEMENTIA. Patient appears to have advanced dementia, which is dementia Alzheimer's type, type 2 diabetes mellitus, DVT, gastroesophageal reflux disease, hyperlipidemia, myocardial infarction in the past, osteoarthritis, seizure disorder. The patient is seizure free for a while. Patient cannot take tramadol. Sleep apnea, uses CPAP machine at home. SOCIAL HISTORY: Quit smoking in 1982. Denied any alcohol abuse or any drug abuse. FAMILY HISTORY: Father had lung cancer. Mother had dementia as well as myocardial infarction. Home medications include: 1. Tramadol, which was discontinued. 2. Risperidone. 3. Glipizide. 4. Sertraline. 5. Omeprazole. 6. Montelukast. 7. Mirtazapine. 8. Memantine. 9. Loratadine, which was discontinued as well because of anticholinergic property. 10. Famotidine. 11. Donepezil. 12. Atorvastatin. 13. Albuterol. 14. Aspirin. PHYSICAL EXAMINATION: VITAL SIGNS: Temperature 98.6, pulse of 70, respiratory rate 19, blood pressure 145/58, saturating at 94% on room air. GENERAL: The patient is alert and oriented x3, not in any acute distress. Well developed, well nourished. HEENT: Pupils are round and equally reacting to light. EOMI. No scleral icterus. No conjunctival pallor. Normocephalic, atraumatic. No pharyngeal erythema. No thyromegaly. CARDIOVASCULAR: S1 and S2 present. No murmurs, rubs, or gallops. PULMONARY: Chest is clear to auscultation, no wheezing or crackles. ABDOMEN: Soft, nontender, nondistended, normoactive bowel sounds. No palpable organomegaly. MUSCULOSKELETAL: No joint swelling or deformity. EXTREMITIES: No cyanosis, clubbing, or pedal edema. NEUROLOGICAL: Gross neurological examination did not reveal any focal deficits. DERMATOLOGIC: Patient has raccoon eyes as mentioned above and some bruises because of the fall. LABORATORY DATA: CBC, CMP no significant abnormality except for mildly elevated AST and ALT for which I will obtain an ultrasound of the gallbladder, liver, gallbladder along with hepatitis panel. CK is minimally elevated because of the fall. No signs or symptoms of rhabdomyolysis. Brain CT and facial CT were reviewed. Patient has a nasal bone fracture. No acute intracranial abnormality. ASSESSMENT AND PLAN: 1. Fall and possible syncopal episode possibly vasovagal event. Patient had an extensive workup in the past. Patient may have a autonomic dysfunction, may benefit from outpatient tilt table testing. ( ) negative, will watch her on the manager monitoring and Neurology evaluated for possibility of seizures. Please refer to their documentation for further details. 2. History of seizure disorder. Tramadol will be discontinued. Suspicion is low that this is a seizure. 3. Advanced Alzheimer's dementia. 4. Chronic obstructive pulmonary disease without any acute exacerbation. 5. Gastroesophageal reflux disease. 6. Hyperlipidemia. 7. Peripheral vascular disease. PLAN: Continue with plan as mentioned above.
--- NOTE | 2016-09-04 08:37 | US ---
EXAMINATION TYPE: US gallbladder DATE OF EXAM: 09/04/2016 7:42 AM COMPARISON: NONE CLINICAL HISTORY: elevated liver enzymes. EXAM MEASUREMENTS: Liver Length: 12.4 cm Gallbladder Wall: not identified CBD: 0.8 cm Right Kidney: 8.8 x 5.3 x 3.9 cm limited exam due to patient being unable to take in a breath and hold it, unable to image midline due to bowel gas, imaging done through intercostal window. Patient unable to roll up, but pillow was put under right side and patient was imaged this way. Patient unable to provide history, there is a CT r eport from 2016 saying GB is normal, unable to identify on today's exam. Pancreas: not visualized due to midline bowel gas Liver: wnl Gallbladder: unable to identify Evidence for sonographic 's sign: Yes CBD: measures 0.8 cm Right Kidney: No hydronephrosis or nephrolithiasis seen IMPRESSION: 1. Limited exam as discussed above. Gallbladder not visualized. Liver homogeneous.
[2016-09-04] MEDS: IPRATROPIUM-ALBUTEROL 3 ML NEB INHALATION SCH ×4 (09:00→19:08)
[2016-09-04] MEDS: SERTRALINE 100 MG TAB PO SCH (09:13)
[2016-09-04] MEDS: MEMANTINE 10 MG TAB PO SCH ×2 (09:13→20:13)
[2016-09-04] MEDS: MONTELUKAST 10 MG TAB PO SCH (09:13)
[2016-09-04] MEDS: DONEPEZIL 10 MG TAB PO SCH (09:13)
[2016-09-04] MEDS: PANTOPRAZOLE 40 MG TABLET PO SCH (09:13)
[2016-09-04 09:17] LABS: Glucose,Whole Blood 108 mg/dL (75-99)
[2016-09-04] MEDS: INSULIN LISPRO (humaLOG) 300 UNIT/3 ML VIAL SQ SCH ×4 (09:18→20:45)
[2016-09-04 11:40] LABS: Basophils % (A) 0 %; CH 29.6; CHCM 32.5; Eosinophils # (A) 0.2 k/uL (0-0.7); Eosinophils % (A) 2 %; HCT 37.7 % (34.0-46.0); HDW 2.39; HGB 12.2 gm/dL (11.4-16.0); Luc # (Auto) 0.06; Luc % (Auto) 1; Lymphocytes # (A) 1.1 k/uL (1.0-4.8); Lymphocytes % (A) 13 %; MCH 29.5 pg (25.0-35.0); MCHC 32.3 g/dL (31.0-37.0); MCV 91.4 fL (80.0-100.0); Mean Platelet Volume 7.6; Monocytes # (A) 0.4 k/uL (0-1.0); Monocytes % (A) 5 %; Neutrophils # (A) 6.7 k/uL (1.3-7.7); Neutrophils % (A) 79 %; RBC 4.13 m/uL (3.80-5.40); RDW 13.1 % (11.5-15.5); WBC 8.5 k/uL (3.8-10.6); WBC (Perox) 8.74
[2016-09-04 11:56] LABS: Anion Gap 13 mmol/L; Blood Urea Nitrogen 16 mg/dL (7-17); Calcium 9.1 mg/dL (8.4-10.2); Carbon Dioxide 24 mmol/L (22-30); Chloride 106 mmol/L (98-107); Glucose 117 mg/dL (74-99); Non-African American GFR(MDRD) >60 (>60 ml/min/1.73 sqM); Potassium 4.5 mmol/L (3.5-5.1); Sodium 143 mmol/L (137-145)
[2016-09-04 11:57] LABS: ALT 48 U/L (9-52); AST 39 U/L (14-36); Alkaline Phosphatase 118 U/L (38-126); Creatine Kinase 161 U/L (30-135); Total Bilirubin 0.7 mg/dL (0.2-1.3); Total Protein 6.4 g/dL (6.3-8.2)
[2016-09-04 12:33] LABS: Glucose,Whole Blood 110 mg/dL (75-99)
[2016-09-04 17:12] LABS: Glucose,Whole Blood 127 mg/dL (75-99)
[2016-09-04] MEDS: risperiDONE 2 MG TAB PO SCH (20:13)
[2016-09-04] MEDS: ASPIRIN 81 MG CHEW PO SCH (20:13)
[2016-09-04 20:44] LABS: Glucose,Whole Blood 123 mg/dL (75-99)
[2016-09-05 07:19] LABS: Glucose,Whole Blood 98 mg/dL (75-99)
[2016-09-05] MEDS: INSULIN LISPRO (humaLOG) 300 UNIT/3 ML VIAL SQ SCH ×2 (07:27→11:56)
[2016-09-05] MEDS: IPRATROPIUM-ALBUTEROL 3 ML NEB INHALATION SCH ×2 (07:40→11:08)
[2016-09-05 07:46] VITALS: BP 151/72; RESP 16; TEMP 96.7
[2016-09-05] MEDS: PANTOPRAZOLE 40 MG TABLET PO SCH (08:09)
[2016-09-05] MEDS: DONEPEZIL 10 MG TAB PO SCH (08:09)
[2016-09-05] MEDS: MEMANTINE 10 MG TAB PO SCH (08:09)
[2016-09-05] MEDS: MONTELUKAST 10 MG TAB PO SCH (08:09)
[2016-09-05] MEDS: SERTRALINE 100 MG TAB PO SCH (08:09)
--- NOTE | 2016-09-05 08:32 | P.PN ---
Subjective Date of service 09/04/2016. Progress note being dictated for Dr. Gutiérrez. Interval history: This is 66-year-old female admitted status post fall with possible syncopal episode, possible vasovagal event and multiple other medical issues in a patient with seizure disorder, recurrent falls. Evaluated by neurology and neuro workup in progress. Scheduled for EEG today. Carotid ultrasound reporting greater than 70% stenosis of left internal carotid artery, close to 50% stenosis in both internal carotid arteries. A CT reporting nondisplaced right nasal bone fracture, age indeterminate, no displaced orbital fracture, contusion over nasal bridge with bilateral infraorbital contusions, cutaneous nodules, right nasal bridge and right cheek. Brain CT reporting no intracranial hemorrhage, no cavarial fracture, chronic microvascular ischemic change without evidence of acute cortical infarction. Evaluated by PT/OT and subacute rehab recommended at discharge. Denies chest pain, palpitations or increasing shortness of breath. Denies any focal deficits, lightheadedness or dizziness. Objective - Vital Signs Vital signs: Vital Signs Temp 97 F L 09/04/16 15:00 Pulse 66 09/04/16 15:00 Resp 19 09/04/16 15:00 BP 113/56 09/04/16 15:00 Pulse Ox 93 L 09/04/16 15:00 Intake & Output 09/03/16 09/04/16 09/04/16 18:59 06:59 18:59 Intake Total 400 Balance 400 Weight 60.5 kg Intake: Oral 400 Other: Voiding Method Toilet Toilet # Voids 6 3 5 # Bowel Movements 1 1 - Exam PHYSICAL EXAM: VITAL SIGNS: As above GENERAL: [Sitting up in bed, no acute distress] HEENT: [Pupils equal conjunctiva normal, facial ecchymosis, including bilateral orbital ecchymosis-racoon eyes.] NECK: [Supple, no JVD] RESPIRATORY EFFORT:[Normal] LUNGS: [Clear to auscultation, no wheezes rhonchi or crackles] CARDIOVASCULAR[regular S1 and S2, no murmurs rubs or gallops, no edema] GI: [Abdomen soft, nontender, positive bowel sounds.] PSYCH: [Alert and oriented -3, mood and affect normal. NEURO: [Gross neurological examination did not reveal any focal deficits] - Labs CBC & Chem 7: 09/04/16 11:18 09/04/16 11:18 Labs: Abnormal Lab Results - Last 24 Hours (Table) 09/03/16 09/04/16 09/04/16 Range/Units 21:07 09:14 11:18 Glucose 117 H (74-99) mg/dL POC Glucose (mg/dL) 110 H 108 H (75-99) mg/dL AST 39 H (14-36) U/L Creatine Kinase 161 H (30-135) U/L 09/04/16 Range/Units 12:20 Glucose (74-99) mg/dL POC Glucose (mg/dL) 110 H (75-99) mg/dL AST (14-36) U/L Creatine Kinase (30-135) U/L Assessment and Plan Plan: 1. Fall with possible syncopal episode, possible vasovagal event. Patient had an extensive workup in the past. May have autonomic dysfunction, and benefit from outpatient tilt table testing, in a patient with carotid stenosis 2. Carotid stenosis; 70% stenosis of left internal carotid artery, close to 50 % stenosis in both internal carotid arteries. 3. [History of seizure disorder]. 4. [Advanced Alzheimer's dementia]. 5. [COPD without any acute exacerbation]. 6. Gastroesophageal reflux disease. 7. [Peripheral vascular disease]. 8. Nasal bone fracture 9. Ataxia. Plan: Continue on current medication regime ,monitoring and symptomatic treatment. Neuro workup in progress, EEG results pending. Vascular surgery consulted regarding carotid stenosis. As mentioned above evaluated by physical therapy and subacute rehab recommended at discharge. Discharge planning in progress with assistance from social work for [facility] rehab. Discharge planning in progress for tomorrow pending neuro clearance and preauthorization. The impression and plan of care has been dictated as directed. : I performed a H&P examination of this patient and discussed the same with the dictator. I agree with the dictator's note. Any additional findings/opinions/ etc. will be noted..
--- NOTE | 2016-09-05 08:46 | P.DS ---
Providers Date of admission: 09/03/16 03:18 Expected date of discharge: 09/05/16 Attending physician: Jerry Gutiérrez Consults: 09/05/16 08:07 Consult Physician Routine Consulting Provider: Leonel Hi Consult Reason/Comments: carotid stenosis Do you want consulting provider notified?: Yes Neurology, Dr. Thierry Mulligan Primary care physician: Jerry Golden [facility] Course: Final Diagnoses: 1. Fall with possible syncopal episode, possible vasovagal event. Patient had an extensive workup in the past. Carotid stenosis. May have autonomic dysfunction, and benefit from outpatient tilt table testing. History of recurrent falls. 2. Carotid stenosis; 70% stenosis of left internal carotid artery, close to 50 % stenosis in both internal carotid arteries. 3. [History of seizure disorder]. 4. [Advanced Alzheimer's dementia]. 5. [COPD without any acute exacerbation]. 6. Gastroesophageal reflux disease. 7. [Peripheral vascular disease]. 8. Nasal bone fracture 9. Ataxia. 10. Normal LV function, EF 60-65% from echo of July 2016 11. Moderate aortic regurgitation Hospital course:This is a 66-year-old female admitted status post fall with possible syncopal episode without bowel or bladder incontinence, possible vasovagal event and multiple other medical issues in a patient with seizure disorder, recurrent falls. Evaluated by neurology and neuro workup in progress. Underwent EEG with results pending. Carotid ultrasound reporting greater than 70% stenosis of left internal carotid artery, close to 50% stenosis in both internal carotid arteries. Vascular surgery consulted. A CT reporting nondisplaced right nasal bone fracture, age indeterminate, no displaced orbital fracture, contusion over nasal bridge with bilateral infraorbital contusions, cutaneous nodules, right nasal bridge and right cheek. Brain CT reporting no intracranial hemorrhage, no cavarial fracture, chronic microvascular ischemic change without evidence of acute cortical infarction. Evaluated by PT/OT with subacute rehab recommended at discharge. Patient will be discharged pending clearance from neurology, vascular surgery. Patient will be discharged to possibly ECF rehab in a stable condition with guarded prognosis. Patient Condition at Discharge: Stable Plan - Discharge Summary Discharge Medication List Albuterol Sulfate [Proair Hfa] 2 puff INHALATION RT-Q4H PRN 06/24/14 [History] Donepezil [Aricept] 10 mg PO QAM 02/07/15 [History] Loratadine 10 mg PO DAILY 06/28/16 [History] Montelukast Sodium [Singulair] 10 mg PO DAILY 06/28/16 [History] Omeprazole [PriLOSEC] 20 mg PO DAILY 06/28/16 [History] Atorvastatin [Lipitor] 10 mg PO HS 07/15/16 [History] Memantine HCl [Namenda Xr] 28 mg PO DAILY 07/15/16 [History] Mirtazapine [Remeron] 15 mg PO HS 07/15/16 [History] risperiDONE [RisperDAL] 2 mg PO HS 08/16/16 [History] Aspirin EC [Ecotrin Low Dose] 81 mg PO HS 09/03/16 [History] Famotidine [Pepcid] 20 mg PO BID 09/03/16 [History] Ipratropium Nebulized [Atrovent Nebulized] 0.5 mg INHALATION RT-QID PRN [History] Sertraline [Zoloft] 200 mg PO DAILY 09/03/16 [History] glipiZIDE [Glucotrol] 5 mg PO AC-BRKFST 09/03/16 [History] Follow up Appointment(s)/Referral(s): Jerry Golden DO [Primary Care Provider] - 3 Days Karen Mulligan MD [STAFF PHYSICIAN] - 1 Week Leonel Hi MD [STAFF PHYSICIAN] - 1 Week Activity/Diet/Wound Care/Special Instructions: Pending final DC recommendations and clearance from neurology Diet: Consistent carb Activity: Limited until follow up Discharge Disposition: TRANSFER TO SNF/ECF
[2016-09-05 11:20] VITALS: PULSE 70
[2016-09-05 11:57] LABS: Glucose,Whole Blood 120 mg/dL (75-99)
--- NOTE | 2016-09-07 22:44 | EEG ---
DATE OF SERVICE: 09/04/2016 INDICATIONS FOR EXAMINATION: This patient is a 66 -year-old female being evaluated for gait ataxia and multiple falls. The patient also with recent syncopal episode. AGE: 66Y EEG FINDINGS: A routine 21 channel awake digital EEG recording was accomplished utilizing the 10-20 international system with bipolar and referential montages. The background activity in the most alert resting state consists of a low to medium amplitude fairly well developed and well sustained 4-5 Hz activity over the posterior head regions. This posterior rhythm attenuates to eye opening. There is a small amount of low amplitude 18-20 Hz beta activity seen maximally over the anterior head regions. Muscle and movement artifact was observed on a few occasions during the tracing. Hyperventilation was not performed. Photic stimulation at flash frequencies of 2-30 Hz produced a minimal occipital driving response. No epileptiform discharges were seen. IMPRESSION: This EEG is moderately abnormal in a diffuse fashion due to slowing of the EEG background. The EEG failed to reveal any focal, lateralized or epileptiform abnormalities. Clinical correlation is recommended.
== END 2016-09-05 13:14 | disposition home or self-care (01) | DRG 312 ==
LOC: EC 23:51 → 4MS4W 09-03 03:18
PROVIDERS: ADMIT Family Medicine; ATTEND Family Medicine
PROC: 0HQ1XZZ Repair Face Skin, External Approach (ICD-10-PCS; principal; 2016-09-03)
DX: R55 Syncope and collapse (principal); I50.9 Heart failure, unspecified; J44.9 Chronic obstructive pulmonary disease, unspecified; G30.9 Alzheimer's disease, unspecified; S06.0X9A Concussion with loss of consciousness of unspecified duration, initial encounter; S01.21XA Laceration without foreign body of nose, initial encounter; J45.909 Unspecified asthma, uncomplicated; F02.80 Dementia in other diseases classified elsewhere, unspecified severity, without behavioral disturbance, psychotic disturbance, mood disturbance, and anxiety; I65.22 Occlusion and stenosis of left carotid artery; S01.511A Laceration without foreign body of lip, initial encounter; S02.2XXA Fracture of nasal bones, initial encounter for closed fracture; R48.0 Dyslexia and alexia; I73.9 Peripheral vascular disease, unspecified; R29.6 Repeated falls; K21.9 Gastro-esophageal reflux disease without esophagitis; R27.0 Ataxia, unspecified; F31.9 Bipolar disorder, unspecified; I35.1 Nonrheumatic aortic (valve) insufficiency; G47.30 Sleep apnea, unspecified; K57.90 Diverticulosis of intestine, part unspecified, without perforation or abscess without bleeding; Z79.82 Long term (current) use of aspirin; Z79.899 Other long term (current) drug therapy; Z79.84 Long term (current) use of oral hypoglycemic drugs; Z86.718 Personal history of other venous thrombosis and embolism; Z90.49 Acquired absence of other specified parts of digestive tract; Z90.710 Acquired absence of both cervix and uterus; Z96.651 Presence of right artificial knee joint; Z87.891 Personal history of nicotine dependence; W18.2XXA Fall in (into) shower or empty bathtub, initial encounter; Y93.E1 Activity, personal bathing and showering; M19.91 Primary osteoarthritis, unspecified site; E78.5 Hyperlipidemia, unspecified; I25.2 Old myocardial infarction; G40.909 Epilepsy, unspecified, not intractable, without status epilepticus; E11.9 Type 2 diabetes mellitus without complications; Z87.01 Personal history of pneumonia (recurrent)
CPT/HCPCS: 36415; 70450; 70486; 71020; 76705; 80053; 80074; 82550; 82553; 83036; 83735; 84484; 85025; 85610; 85730; 90471; 90715; 93005; 93880; 94640; 95819; 96360; 96361; 99285

== ENCOUNTER 2016-11-14 07:33 | Day surgery (SDC) | payer MEDICARE, OTHER ==
[2016-11-12 11:52] VITALS: BMI 29.0
[~2016-11-14 07:33] MED LIST: LACTATED RINGERS 1,000 ML IV SCH
[2016-11-14 08:08] VITALS: RESP 16; TEMP 98.2
[2016-11-14 08:18] LABS: Glucose,Whole Blood 131 mg/dL (75-99)
[2016-11-14] MEDS ORDERED: PROPOFOL 10 MG/ML 20 ML VIAL IV ONE (08:51)
[2016-11-14] MEDS ORDERED: LIDOCAINE 1% INJ 10MG/ML (20 ML MDV) ONE (08:51)
--- NOTE | 2016-11-14 09:04 | P.GSHP ---
History of Present Illness H&P Date: 11/14/16 Chief Complaint: GI bleed This a 66-year-old female who's had issues with rectal bleeding. Patient rents today for colonoscopy. She's had previous rectal bleeding secondary to diverticulosis. Past Medical History Past Medical History: Asthma, Heart Failure, COPD, Dementia, Diabetes Mellitus, Deep Vein Thrombosis (DVT), GERD/Reflux, Hyperlipidemia, Myocardial Infarction ( [place]), Osteoarthritis (OA), Pneumonia, Renal Disease, Seizure Disorder, Sleep Apnea/CPAP/BIPAP, Vascular Disorder Additional Past Medical History / Comment(s): Recent pneumonia and past pneumonia, diverticulosis, sleep apnea HAS CPAP,MURMUR, SEIZURES IN THE 1969'S( EPILEPSY) NO SEIZURES SINCE 1974- NOT ON MEDS FOR IT ANYMORE, IBS, PAD, TMJ, anemia, nephrolithiasis, stomach ulcer, ESTEFANY-has CPAP but pulls off at times, as child fell and had a needle get stuck in her head around age 4 and was never removed. RECENT FALL IN BATHROOM WITH FX AND LACERATION TO NOSE- Last Myocardial Infarction Date:: 1991 History of Any Multi-Drug Resistant Organisms: None Reported Past Surgical History: Adenoidectomy, Appendectomy, Bowel Resection, Cholecystectomy, Hernia Repair, Hysterectomy, Joint Replacement, Orthopedic Surgery, Tonsillectomy Additional Past Surgical History / Comment(s): partial colon resection with colostomy then reversal, SILVERIO KNEE ARTHROSCOPY,Right KNEE REPLACEMENT, EGDs and colonoscopies, lipomas off back, cyst off spine, eye duct surgery Past Anesthesia/Blood Transfusion Reactions: Previous Problems w/ Anesthesia, Motion Sickness Additional Past Anesthesia/Blood Transfusion Reaction / Comment(s): DIFFICULTY WAKING UP. CLAUSTERPHOBIC Past Psychological History: Anxiety, Bipolar Additional Psychological History / Comment(s): DYSLEXIA but is able to read and write with some difficulty. Pt resides with her sisters, Reny who is also her legal guardian and other sister Michelle. They are her caretakers. Dru uses a walker to ambulate. She does not drive, Michelle takes her to appts. pt also has dementia and is deaf Smoking Status: Former smoker Past Alcohol Use History: None Reported Additional Past Alcohol Use History / Comment(s): STARTED SMOKNG AT AGE 16, SMOKED 1 CIG PER DAY QUIT 1982 Past Drug Use History: None Reported - Past Family History Father Family Medical History: Cancer Additional Family Medical History / Comment(s): Father had lung cancer. Mother Family Medical History: Congestive Heart Failure (CHF), Dementia, Myocardial Infarction ([place]) Medications and Allergies Home Medications Medication Instructions Recorded Confirmed Type Albuterol Sulfate [Proair Hfa] 2 puff INHALATION RT-Q4H PRN 06/24/14 11/14/16 History Donepezil [Aricept] 10 mg PO QAM 02/07/15 11/14/16 History Loratadine 10 mg PO DAILY 06/28/16 11/14/16 History Montelukast Sodium [Singulair] 10 mg PO DAILY 06/28/16 11/14/16 History Omeprazole [PriLOSEC] 20 mg PO DAILY 06/28/16 11/14/16 History Atorvastatin [Lipitor] 10 mg PO HS 07/15/16 11/14/16 History Memantine HCl [Namenda Xr] 28 mg PO DAILY 07/15/16 11/14/16 History Mirtazapine [Remeron] 15 mg PO HS 07/15/16 11/14/16 History risperiDONE [RisperDAL] 2 mg PO HS 08/16/16 11/14/16 History Famotidine [Pepcid] 20 mg PO BID 09/03/16 11/14/16 History Ipratropium Nebulized [Atrovent 0.5 mg INHALATION RT-QID PRN 09/03/16 11/14/16 History Nebulized] Sertraline [Zoloft] 200 mg PO DAILY 09/03/16 11/14/16 History glipiZIDE [Glucotrol] 5 mg PO AC-BRKFST 09/03/16 11/14/16 History Allergies Allergy/AdvReac Type Severity Reaction Status Date / Time baclofen Allergy Unknown Psychotic Verified 11/14/16 08:21 Episode codeine Allergy Rash/Hives Verified 11/14/16 08:21 lorazepam [From Ativan] Allergy Rash/Hives Verified 11/14/16 08:21 oxaprozin [From Daypro] Allergy Rash/Hives Verified 11/14/16 08:21 Sulfa (Sulfonamide Allergy Rash/Hives Verified 11/14/16 08:21 Antibiotics) cyclobenzaprine HCl AdvReac Confusion Verified 11/14/16 08:21 [From Flexeril] Surgical - Exam Vital Signs Temp Pulse Resp BP Pulse Ox 98.2 F 53 L 16 111/67 97 11/14/16 08:07 11/14/16 08:07 11/14/16 08:07 11/14/16 08:07 11/14/16 08:07 - General well developed, no distress - Eyes PERRL - ENT normal pinna - Neck no masses - Respiratory normal expansion - Cardiovascular Rhythm: regular - Abdomen Abdomen: soft, non tender Results - Labs Abnormal Lab Results - Last 24 Hours (Table) 11/14/16 Range/Units 08:14 POC Glucose (mg/dL) 131 H (75-99) mg/dL Assessment and Plan Plan: GI bleed. We'll perform colonoscopy.
--- NOTE | 2016-11-14 09:17 | P.OP ---
Date of Procedure: 11/14/16 Preoperative Diagnosis: GI bleed Postoperative Diagnosis: Diverticulosis Procedure(s) Performed: Colonoscopy Implants: Anesthesia: MAC Surgeon: Jose Juan Leal Pathology: none sent Condition: stable Disposition: PACU Indications for Procedure: Operative Findings: Description of Procedure: The patient's placed on the endoscopy table lateral position. She received IV sedation. Digital rectal exam was performed which revealed no abnormalities. The flexible colonoscope was then placed patient anus and passed throughout the entire colon. The ileocecal valve was visualized. The cecum, ascending and transverse colon appeared normal. In the descending colon was a few diverticula. The patient a previous low anterior section. The anastomosis visualized. This was slightly scarred. The distal colon had significant diverticular changes. Scope was brought back the rectum and this appeared normal. Scope was withdrawn for patient. There is no evidence of GI bleed on the exam.
[2016-11-14 09:37] VITALS: BP 91/51; PULSE 69
[2016-11-14 09:52] LABS: Glucose,Whole Blood 103 mg/dL (75-99)
== END 2016-11-14 10:06 | disposition home or self-care (01) ==
LOC: ORWHC2ENDO 07:33
PROVIDERS: ATTEND Surgery
DX: K57.30 Diverticulosis of large intestine without perforation or abscess without bleeding (principal); Z87.19 Personal history of other diseases of the digestive system; J44.9 Chronic obstructive pulmonary disease, unspecified; I50.9 Heart failure, unspecified; F03.90 Unspecified dementia, unspecified severity, without behavioral disturbance, psychotic disturbance, mood disturbance, and anxiety; E11.9 Type 2 diabetes mellitus without complications; K21.9 Gastro-esophageal reflux disease without esophagitis; E78.5 Hyperlipidemia, unspecified; M19.90 Unspecified osteoarthritis, unspecified site; N28.9 Disorder of kidney and ureter, unspecified; G40.909 Epilepsy, unspecified, not intractable, without status epilepticus; G47.33 Obstructive sleep apnea (adult) (pediatric); F41.9 Anxiety disorder, unspecified; F31.9 Bipolar disorder, unspecified; I25.2 Old myocardial infarction; Z86.718 Personal history of other venous thrombosis and embolism; Z79.84 Long term (current) use of oral hypoglycemic drugs; Z79.899 Other long term (current) drug therapy; Z88.5 Allergy status to narcotic agent; Z88.8 Allergy status to other drugs, medicaments and biological substances; Z88.2 Allergy status to sulfonamides; Z87.891 Personal history of nicotine dependence
CPT/HCPCS: 45378; J2001; J2704

== ENCOUNTER 2016-11-22 17:07 | Emergency (ER) | payer MEDICARE, OTHER ==
[2016-11-22] MEDS: SODIUM CHLORIDE 0.9% 1,000 ML IV STA (17:43)
[2016-11-22 18:01] LABS: Basophils # (A) 0.1 k/uL (0-0.2); Basophils % (A) 1 %; CH 30.3; CHCM 32.6; Eosinophils # (A) 0.2 k/uL (0-0.7); Eosinophils % (A) 2 %; HCT 41.2 % (34.0-46.0); HDW 2.51; HGB 12.8 gm/dL (11.4-16.0); Luc # (Auto) 0.09; Luc % (Auto) 1; Lymphocytes # (A) 1.1 k/uL (1.0-4.8); Lymphocytes % (A) 16 %; MCH 29.1 pg (25.0-35.0); MCHC 31.1 g/dL (31.0-37.0); MCV 93.5 fL (80.0-100.0); Mean Platelet Volume 7.9; Monocytes # (A) 0.4 k/uL (0-1.0); Monocytes % (A) 5 %; Neutrophils # (A) 5.1 k/uL (1.3-7.7); Neutrophils % (A) 74 %; RDW 13.1 % (11.5-15.5); WBC 6.9 k/uL (3.8-10.6); WBC (Perox) 7.01
[2016-11-22 18:06] LABS: Partial Thromboplastin Time 28.2 sec (22.0-30.0); Prothrombin Time 10.4 sec (9.0-12.0)
[2016-11-22 18:14] LABS: ALT 30 U/L (9-52); AST 28 U/L (14-36); Alkaline Phosphatase 147 U/L (38-126); Anion Gap 10 mmol/L; Blood Urea Nitrogen 14 mg/dL (7-17); Calcium 8.9 mg/dL (8.4-10.2); Carbon Dioxide 26 mmol/L (22-30); Chloride 104 mmol/L (98-107); Glucose 101 mg/dL (74-99); Magnesium 1.9 mg/dL (1.6-2.3); Non-African American GFR(MDRD) >60 (>60 ml/min/1.73 sqM); Phosphorous 3.6 mg/dL (2.5-4.5); Sodium 140 mmol/L (137-145); Total Bilirubin 0.4 mg/dL (0.2-1.3); Total Protein 6.5 g/dL (6.3-8.2)
[2016-11-22 18:16] LABS: Creatine Kinase 96 U/L (30-135)
--- NOTE | 2016-11-22 18:16 | ED ---
General Adult HPI - General Source: family, RN notes reviewed, old records reviewed Mode of arrival: wheelchair Limitations: altered mental status <Justice Perry - Last Filed: 11/22/16 19:02> <Mulugeta Germain - Last Filed: 11/22/16 20:19> - General Chief complaint: Altered Mental Status Stated complaint: alter mental status Time Seen by Provider: 11/22/16 17:27 - History of Present Illness Initial comments: This is a 66-year-old female ER for evaluation. This patient presents today for evaluation of altered mental status. Patient been weak and lethargic per family for 2 days. Patient has history of similar symptoms related to dehydration or decreased appetite. The patient has had both the last 2 days to 3 days. Patient was at rehab today and they said she was not acting her appropriate normal self. She denies any complaints at this time. Is completely alert and oriented. No medication changes (Justice Perry) - Related Data Home Medications Medication Instructions Recorded Confirmed Albuterol Sulfate [Proair Hfa] 2 puff INHALATION RT-QID PRN 06/24/14 11/22/16 Donepezil [Aricept] 10 mg PO QAM 02/07/15 11/22/16 Loratadine 10 mg PO DAILY 06/28/16 11/22/16 Montelukast Sodium [Singulair] 10 mg PO HS 06/28/16 11/22/16 Omeprazole [PriLOSEC] 20 mg PO DAILY 06/28/16 11/22/16 Atorvastatin [Lipitor] 10 mg PO HS 07/15/16 11/22/16 Memantine HCl [Namenda Xr] 28 mg PO DAILY 07/15/16 11/22/16 Mirtazapine [Remeron] 7.5 mg PO HS 07/15/16 11/22/16 risperiDONE [RisperDAL] 1 mg PO HS 08/16/16 11/22/16 Famotidine [Pepcid] 20 mg PO BID 09/03/16 11/22/16 Ipratropium Nebulized [Atrovent 0.5 mg INHALATION RT-QID PRN 09/03/16 11/22/16 Nebulized] glipiZIDE [Glucotrol] 5 mg PO AC-BRKFST 09/03/16 11/22/16 Ibuprofen [Motrin] 800 mg PO Q8H PRN 11/22/16 11/22/16 Sertraline [Zoloft] 50 mg PO HS 11/22/16 11/22/16 traMADol HCL [Ultram] 50 mg PO BID PRN 11/22/16 11/22/16 Previous Rx's Medication Instructions Recorded Cephalexin [Keflex] 250 mg PO Q6HR #40 cap 11/22/16 Cephalexin [Keflex] 250 mg PO Q6HR #40 cap 11/22/16 Allergies Allergy/AdvReac Type Severity Reaction Status Date / Time baclofen Allergy Unknown Psychotic Verified 11/22/16 18:56 Episode codeine Allergy Rash/Hives Verified 11/22/16 18:56 lorazepam [From Ativan] Allergy Rash/Hives Verified 11/22/16 18:56 oxaprozin [From Daypro] Allergy Rash/Hives Verified 11/22/16 18:56 Sulfa (Sulfonamide Allergy Rash/Hives Verified 11/22/16 18:56 Antibiotics) cyclobenzaprine HCl AdvReac Confusion Verified 11/22/16 18:56 [From Flexeril] Review of Systems ROS Other: All systems not noted in ROS Statement are negative. <Justice Perry - Last Filed: 11/22/16 19:02> ROS Other: All systems not noted in ROS Statement are negative. <Mulugeta Germain - Last Filed: 11/22/16 20:19> ROS Statement: Those systems with pertinent positive or pertinent negative responses have been documented in the HPI. Past Medical History Past Medical History: Asthma, Heart Failure, COPD, Dementia, Diabetes Mellitus, Deep Vein Thrombosis (DVT), GERD/Reflux, Hyperlipidemia, Myocardial Infarction ( [place]), Osteoarthritis (OA), Pneumonia, Renal Disease, Seizure Disorder, Sleep Apnea/CPAP/BIPAP, Vascular Disorder Additional Past Medical History / Comment(s): Recent pneumonia and past pneumonia, diverticulosis, sleep apnea HAS CPAP,MURMUR, SEIZURES IN THE 1970'S( EPILEPSY) NO SEIZURES SINCE 1974- NOT ON MEDS FOR IT ANYMORE, IBS, PAD, TMJ, anemia, nephrolithiasis, stomach ulcer, ESTEFANY-has CPAP but pulls off at times, as child fell and had a needle get stuck in her head around age 4 and was never removed. RECENT FALL IN BATHROOM WITH FX AND LACERATION TO NOSE- Last Myocardial Infarction Date:: 1991 History of Any Multi-Drug Resistant Organisms: None Reported Past Surgical History: Adenoidectomy, Appendectomy, Bowel Resection, Cholecystectomy, Hernia Repair, Hysterectomy, Joint Replacement, Orthopedic Surgery, Tonsillectomy Additional Past Surgical History / Comment(s): partial colon resection with colostomy then reversal, SILVERIO KNEE ARTHROSCOPY,Right KNEE REPLACEMENT, EGDs and colonoscopies, lipomas off back, cyst off spine, eye duct surgery Past Anesthesia/Blood Transfusion Reactions: Previous Problems w/ Anesthesia, Motion Sickness Additional Past Anesthesia/Blood Transfusion Reaction / Comment(s): DIFFICULTY WAKING UP. CLAUSTERPHOBIC Past Psychological History: Anxiety, Bipolar Smoking Status: Former smoker Past Alcohol Use History: None Reported Past Drug Use History: None Reported - Past Family History Father Family Medical History: Cancer Additional Family Medical History / Comment(s): Father had lung cancer. Mother Family Medical History: Congestive Heart Failure (CHF), Dementia, Myocardial Infarction ([place]) <Justice Perry - Last Filed: 11/22/16 19:02> General Exam Limitations: altered mental status General appearance: alert, in no apparent distress Head exam: Present: atraumatic, normocephalic, normal inspection Eye exam: Present: normal appearance, PERRL, EOMI. Absent: scleral icterus, conjunctival injection, periorbital swelling ENT exam: Present: normal exam, mucous membranes moist Neck exam: Present: normal inspection. Absent: tenderness, meningismus, lymphadenopathy Respiratory exam: Present: normal lung sounds bilaterally. Absent: respiratory distress, wheezes, rales, rhonchi, stridor Cardiovascular Exam: Present: regular rate, normal rhythm, normal heart sounds. Absent: systolic murmur, diastolic murmur, rubs, gallop, clicks GI/Abdominal exam: Present: soft, normal bowel sounds. Absent: distended, tenderness, guarding, rebound, rigid Extremities exam: Present: normal inspection, full ROM, normal capillary refill. Absent: tenderness, pedal edema, joint swelling, calf tenderness Back exam: Present: normal inspection Neurological exam: Present: alert, oriented X3, CN II-XII intact Psychiatric exam: Present: normal affect, normal mood Skin exam: Present: warm, dry, intact, normal color. Absent: rash <RoskoppLuis Miguele Lennox - Last Filed: 11/22/16 19:02> EKG Findings - EKG Comments: EKG Findings:: EKG shows normal sinus rhythm at 69, KS 194, QRS 76, QTC 422 <OrlandoJustice High - Last Filed: 11/22/16 19:02> Medical Decision Making - Lab Data Result diagrams: 11/22/16 17:40 11/22/16 17:40 <Justice Perry - Last Filed: 11/22/16 19:02> - Lab Data Result diagrams: 11/22/16 17:40 11/22/16 17:40 <Mulugeta Germain - Last Filed: 11/22/16 20:19> - Medical Decision Making Patient is awake alert oriented history she feels good was called discharged on antibiotic she was instructed to increase her oral fluids. (Mulugeta Germain) - Lab Data Lab Results 11/22/16 11/22/16 11/22/16 Range/Units 17:40 17:40 17:40 WBC 6.9 (3.8-10.6) k/uL RBC 4.40 (3.80-5.40) m/uL Hgb 12.8 (11.4-16.0) gm/dL Hct 41.2 (34.0-46.0) % MCV 93.5 (80.0-100.0) fL MCH 29.1 (25.0-35.0) pg MCHC 31.1 (31.0-37.0) g/dL RDW 13.1 (11.5-15.5) % Plt Count 200 (150-450) k/uL Neutrophils % 74 % Lymphocytes % 16 % Monocytes % 5 % Eosinophils % 2 % Basophils % 1 % Neutrophils # 5.1 (1.3-7.7) k/uL Lymphocytes # 1.1 (1.0-4.8) k/uL Monocytes # 0.4 (0-1.0) k/uL Eosinophils # 0.2 (0-0.7) k/uL Basophils # 0.1 (0-0.2) k/uL PT (9.0-12.0) sec INR (<1.1) APTT (22.0-30.0) sec Sodium 140 (137-145) mmol/L Potassium 4.0 (3.5-5.1) mmol/L Chloride 104 (98-107) mmol/L Carbon Dioxide 26 (22-30) mmol/L Anion Gap 10 mmol/L BUN 14 (7-17) mg/dL Creatinine 0.86 (0.52-1.04) mg/dL Est GFR (MDRD) Af Amer >60 (>60 ml/min/1.73 sqM) Est GFR (MDRD) Non-Af >60 (>60 ml/min/1.73 sqM) Glucose 101 H (74-99) mg/dL Plasma Lactic Acid Artie (0.7-2.0) mmol/L Calcium 8.9 (8.4-10.2) mg/dL Phosphorus 3.6 (2.5-4.5) mg/dL Magnesium 1.9 (1.6-2.3) mg/dL Total Bilirubin 0.4 (0.2-1.3) mg/dL AST 28 (14-36) U/L ALT 30 (9-52) U/L Alkaline Phosphatase 147 H (38-126) U/L Total Creatine Kinase 96 (30-135) U/L CK-MB (CK-2) 0.6 (0.0-2.4) ng/mL CK-MB (CK-2) Rel Index 0.6 Troponin I <0.012 (0.000-0.034) ng/mL Total Protein 6.5 (6.3-8.2) g/dL Albumin 3.8 (3.5-5.0) g/dL TSH 2.690 (0.465-4.680) mIU/L Urine Color Urine Appearance (Clear) Urine pH (5.0-8.0) Ur Specific [place] (1.001-1.035) Urine Protein (Negative) Urine Glucose (UA) (Negative) Urine Ketones (Negative) Urine Blood (Negative) Urine Nitrite (Negative) Urine Bilirubin (Negative) Urine Urobilinogen (<2.0) mg/dL Ur Leukocyte Esterase (Negative) Urine RBC (0-5) /hpf Urine WBC (0-5) /hpf Urine Bacteria (None) /hpf 11/22/16 11/22/16 11/22/16 Range/Units 17:40 17:40 18:55 WBC (3.8-10.6) k/uL RBC (3.80-5.40) m/uL Hgb (11.4-16.0) gm/dL Hct (34.0-46.0) % MCV (80.0-100.0) fL MCH (25.0-35.0) pg MCHC (31.0-37.0) g/dL RDW (11.5-15.5) % Plt Count (150-450) k/uL Neutrophils % % Lymphocytes % % Monocytes % % Eosinophils % % Basophils % % Neutrophils # (1.3-7.7) k/uL Lymphocytes # (1.0-4.8) k/uL Monocytes # (0-1.0) k/uL Eosinophils # (0-0.7) k/uL Basophils # (0-0.2) k/uL PT 10.4 (9.0-12.0) sec INR 1.0 (<1.1) APTT 28.2 (22.0-30.0) sec Sodium (137-145) mmol/L Potassium (3.5-5.1) mmol/L Chloride (98-107) mmol/L Carbon Dioxide (22-30) mmol/L Anion Gap mmol/L BUN (7-17) mg/dL Creatinine (0.52-1.04) mg/dL Est GFR (MDRD) Af Amer (>60 ml/min/1.73 sqM) Est GFR (MDRD) Non-Af (>60 ml/min/1.73 sqM) Glucose (74-99) mg/dL Plasma Lactic Acid Artie 0.8 (0.7-2.0) mmol/L Calcium (8.4-10.2) mg/dL Phosphorus (2.5-4.5) mg/dL Magnesium (1.6-2.3) mg/dL Total Bilirubin (0.2-1.3) mg/dL AST (14-36) U/L ALT (9-52) U/L Alkaline Phosphatase (38-126) U/L Total Creatine Kinase (30-135) U/L CK-MB (CK-2) (0.0-2.4) ng/mL CK-MB (CK-2) Rel Index Troponin I (0.000-0.034) ng/mL Total Protein (6.3-8.2) g/dL Albumin (3.5-5.0) g/dL TSH (0.465-4.680) mIU/L Urine Color Light Yellow Urine Appearance Clear (Clear) Urine pH 6.5 (5.0-8.0) Ur Specific [place] 1.004 (1.001-1.035) Urine Protein Negative (Negative) Urine Glucose (UA) Negative (Negative) Urine Ketones Negative (Negative) Urine Blood Negative (Negative) Urine Nitrite Negative (Negative) Urine Bilirubin Negative (Negative) Urine Urobilinogen <2.0 (<2.0) mg/dL Ur Leukocyte Esterase Large H (Negative) Urine RBC 1 (0-5) /hpf Urine WBC 9 H (0-5) /hpf Urine Bacteria Rare H (None) /hpf Disposition <Justice Perry - Last Filed: 11/22/16 19:02> <Mulugeta Germain - Last Filed: 11/22/16 20:19> Clinical Impression: Altered mental status, Urinary tract infection, Dehydration Disposition: HOME SELF-CARE Condition: Good Instructions: Altered Mental Status (ED), Urinary Tract Infection in Women (ED) , Dehydration (ED) Prescriptions: Cephalexin [Keflex] 250 mg PO Q6HR #40 cap Cephalexin [Keflex] 250 mg PO Q6HR #40 cap Referrals: Jerry Golden DO [Primary Care Provider] - 1-2 days
[2016-11-22 18:29] LABS: Creatine Kinase MB 0.6 ng/mL (0.0-2.4); Troponin I <0.012 ng/mL (0.000-0.034)
[2016-11-22 18:41] VITALS: RESP 18
[2016-11-22 19:11] LABS: Appearance,Urine Clear (Clear); Bacteria,Urine Rare /hpf; Bilirubin,Urine Negative (Negative); Glucose,Urine (UA) Negative (Negative); Ketones,Urine Negative (Negative); Leukocyte Esterase,Urine Large (Negative); Nitrite,Urine Negative (Negative); PH, Urine 6.5 (5.0-8.0); Particle Count 4454; Protein,Urine Negative (Negative); RBC,Urine 1 /hpf (0-5); Specific Gravity,Urine 1.004 (1.001-1.035); UA Billing (MACRO vs. MICRO) MICRO; Urobilinogen,Urine <2.0 mg/dL (<2.0); WBC,Urine 9 /hpf (0-5)
[2016-11-22] MEDS: CEPHALEXIN 500 MG CAP PO STA (19:45)
[2016-11-22 20:58] VITALS: PULSE 72; TEMP 97.6
[2016-11-22 20:59] VITALS: BP 142/82
== END 2016-11-22 20:58 | disposition home or self-care (01) ==
LOC: EC 17:07
DX: E86.0 Dehydration (principal); N39.0 Urinary tract infection, site not specified; R41.82 Altered mental status, unspecified; E78.5 Hyperlipidemia, unspecified; E11.9 Type 2 diabetes mellitus without complications; J45.909 Unspecified asthma, uncomplicated; K21.9 Gastro-esophageal reflux disease without esophagitis; F41.9 Anxiety disorder, unspecified; Z87.891 Personal history of nicotine dependence; Z79.84 Long term (current) use of oral hypoglycemic drugs; Z79.899 Other long term (current) drug therapy; Z88.2 Allergy status to sulfonamides; Z88.5 Allergy status to narcotic agent; Z88.6 Allergy status to analgesic agent; Z88.8 Allergy status to other drugs, medicaments and biological substances; Z81.8 Family history of other mental and behavioral disorders
CPT/HCPCS: 36415; 80053; 81001; 82550; 82553; 83605; 83735; 84100; 84443; 84484; 85025; 85610; 85730; 87086; 93005; 96360; 99285

== ENCOUNTER 2016-11-29 14:04 | Inpatient (IN) | payer MEDICARE, OTHER ==
[2016-11-29] MEDS ORDERED: IBUPROFEN 600 MG TAB PO STA (15:40)
[2016-11-29] MEDS ORDERED: ACETAMINOPHEN TAB 500 MG TAB PO STA (15:40)
--- NOTE | 2016-11-29 15:47 | ED ---
Fever HPI - General Source: patient, family, RN notes reviewed Mode of arrival: wheelchair Limitations: no limitations <Angela Howard - Last Filed: 11/29/16 19:27> <Neo Weiss - Last Filed: 11/29/16 19:44> - General Chief Complaint: Fever Stated Complaint: UTI Time Seen by Provider: 11/29/16 15:32 - History of Present Illness Initial Comments: 66-year-old female presents to the emergency department with chief complaint of not acting right. The patient today was just not acting right. She does not want to get up to walk she seems more confused than normal. They state he was seen here a few days ago diagnosed with UTI and sent home. They stated they followed up with her doctor yesterday and everything was fine and then today they noticed this behavior. They state when they got here they were informed that she had a fever. She states that she has had a cough. She admits to lower abdominal pain. There has been no difficulty in breathing with this she denies any chest pain or shortness of breath. There is been no falls or injuries. Patient was improved due to the patient's behavior so they thought that they should be evaluated. The patient denies any back pain any headache at this time. She has any neck pain. She denies any changes in urination but they do state the patient does have a history of urosepsis in the past.Patient denies any recent shortness of breath, chest pain, back pain, nausea vomiting, numbness or tingling, dysuria or hematuria, constipation or diarrhea, headaches or visual changes, or any other current symptoms. (Angela Howard) - Related Data Home Medications Medication Instructions Recorded Confirmed Albuterol Sulfate [Proair Hfa] 2 puff INHALATION RT-QID PRN 06/24/14 11/29/16 Donepezil [Aricept] 10 mg PO DAILY 02/07/15 11/29/16 Loratadine 10 mg PO QAM 06/28/16 11/29/16 Montelukast Sodium [Singulair] 10 mg PO DAILY 06/28/16 11/29/16 Omeprazole [PriLOSEC] 20 mg PO HS 06/28/16 11/29/16 Memantine HCl [Namenda Xr] 28 mg PO DAILY 07/15/16 11/29/16 risperiDONE [RisperDAL] 1 mg PO HS 08/16/16 11/29/16 Famotidine [Pepcid] 20 mg PO DAILY 09/03/16 11/29/16 glipiZIDE [Glucotrol] 5 mg PO DAILY 09/03/16 11/29/16 Sertraline [Zoloft] 50 mg PO QAM 11/22/16 11/29/16 traMADol HCL [Ultram] 50 mg PO BID PRN 11/22/16 11/29/16 Mirtazapine 7.5 mg PO HS 11/29/16 11/29/16 Previous Rx's Medication Instructions Recorded Cephalexin [Keflex] 250 mg PO Q6HR #40 cap 11/22/16 Allergies Allergy/AdvReac Type Severity Reaction Status Date / Time codeine Allergy Rash/Hives Verified 11/22/16 18:56 lorazepam [From Ativan] Allergy Rash/Hives Verified 11/22/16 18:56 oxaprozin [From Daypro] Allergy Rash/Hives Verified 11/22/16 18:56 Sulfa (Sulfonamide Allergy Rash/Hives Verified 11/22/16 18:56 Antibiotics) baclofen AdvReac Unknown Psychotic Verified 11/29/16 15:45 Episode cyclobenzaprine HCl AdvReac Confusion Verified 11/22/16 18:56 [From Flexeril] Review of Systems ROS Other: All systems not noted in ROS Statement are negative. <Angela Howard - Last Filed: 11/29/16 19:27> ROS Other: All systems not noted in ROS Statement are negative. <Neo Weiss - Last Filed: 11/29/16 19:44> ROS Statement: Those systems with pertinent positive or pertinent negative responses have been documented in the HPI. Past Medical History Past Medical History: Asthma, Heart Failure, COPD, Dementia, Diabetes Mellitus, Deep Vein Thrombosis (DVT), GERD/Reflux, Hyperlipidemia, Myocardial Infarction ( [place]), Osteoarthritis (OA), Pneumonia, Renal Disease, Seizure Disorder, Sleep Apnea/CPAP/BIPAP, Vascular Disorder Additional Past Medical History / Comment(s): Recent pneumonia and past pneumonia, diverticulosis, sleep apnea HAS CPAP,MURMUR, SEIZURES IN THE 1970'S( EPILEPSY) NO SEIZURES SINCE 1974- NOT ON MEDS FOR IT ANYMORE, IBS, PAD, TMJ, anemia, nephrolithiasis, stomach ulcer, ESTEFANY-has CPAP but pulls off at times, as child fell and had a needle get stuck in her head around age 4 and was never removed. RECENT FALL IN BATHROOM WITH FX AND LACERATION TO NOSE- Last Myocardial Infarction Date:: 1991 History of Any Multi-Drug Resistant Organisms: None Reported Past Surgical History: Adenoidectomy, Appendectomy, Bowel Resection, Cholecystectomy, Hernia Repair, Hysterectomy, Joint Replacement, Orthopedic Surgery, Tonsillectomy Additional Past Surgical History / Comment(s): partial colon resection with colostomy then reversal, SILVERIO KNEE ARTHROSCOPY,Right KNEE REPLACEMENT, EGDs and colonoscopies, lipomas off back, cyst off spine, eye duct surgery Past Anesthesia/Blood Transfusion Reactions: Previous Problems w/ Anesthesia, Motion Sickness Additional Past Anesthesia/Blood Transfusion Reaction / Comment(s): DIFFICULTY WAKING UP. CLAUSTERPHOBIC Past Psychological History: Anxiety, Bipolar Smoking Status: Former smoker Past Alcohol Use History: None Reported Past Drug Use History: None Reported - Past Family History Father Family Medical History: Cancer Additional Family Medical History / Comment(s): Father had lung cancer. Mother Family Medical History: Congestive Heart Failure (CHF), Dementia, Myocardial Infarction ([place]) <Angela Howard - Last Filed: 11/29/16 19:27> General Exam Limitations: no limitations <Angela Howard - Last Filed: 11/29/16 19:27> <Neo Weiss - Last Filed: 11/29/16 19:44> - General Exam Comments Initial Comments: General: The patient is awake and alert, in no distress, and does not appear acutely ill. Eye: Pupils are equal, round and reactive to light, extra-ocular movements are intact; there is normal conjunctiva bilaterally. No signs of icterus. Ears, nose, mouth and throat: There are moist mucous membranes and no oral lesions. Neck: The neck is supple, there is no tenderness. Cardiovascular: There is a regular rate and rhythm. No murmur, rub or gallop is appreciated. Respiratory: Lungs are clear to auscultation, respirations are non-labored, breath sounds are equal. No wheezes, stridor, rales, or rhonchi. Gastrointestinal: Soft, non-distended, non-tender abdomen without masses or organomegaly noted. There is no rebound or guarding present. No CVA tenderness. Bowel sounds are unremarkable. Back: There is no tenderness to palpation in the midline. There is no obvious deformity. No rashes noted. Musculoskeletal: Normal ROM, no tenderness, There is no pedal edema. There is no calf tenderness or swelling. Sensation intact. Pulses equal bilaterally 2+. Neurological: CN II-XII intact, There are no obvious motor or sensory deficits. Coordination appears grossly intact. Speech is normal. Skin: Skin is warm and dry and no rashes or lesions are noted. Psychiatric: Cooperative, appropriate mood & affect, normal judgment. (Angela Howard) Course <Angela Howard - Last Filed: 11/29/16 19:27> <Neo Weiss - Last Filed: 11/29/16 19:44> Vital Signs 11/29/16 11/29/16 11/29/16 14:43 16:00 16:50 Temperature 101.0 F H 101.8 F H 100.7 F H Pulse Rate 91 78 82 Respiratory 16 18 18 Rate Blood Pressure 132/70 131/62 123/59 O2 Sat by Pulse 94 L 97 95 Oximetry 11/29/16 18:37 Temperature 99.3 F Pulse Rate 75 Respiratory 18 Rate Blood Pressure 134/64 O2 Sat by Pulse 95 Oximetry - Reevaluation(s) Reevaluation #1: 11/29/16 19:08 At this time patient meets sepsis criteria. (Angela Howard) Medical Decision Making - Lab Data Result diagrams: 11/29/16 15:45 11/29/16 15:45 - EKG Data -: EKG Interpreted by Nv - Radiology Data Radiology results: report reviewed, image reviewed <Angela Howard - Last Filed: 11/29/16 19:27> - Lab Data Result diagrams: 11/29/16 15:45 11/29/16 15:45 <Neo Weiss - Last Filed: 11/29/16 19:44> - Medical Decision Making 66-year-old female presents emergency Department chief complaint of fever. At this time patient's CAT scan and lab work is reviewed. There is concern for possible ischemic bowel versus colitis. This time we will start patient on antibiotics. We discussed the case with Raisa the nurse practitioner. We did hydrate patient cautiously due to her history of CHF. Fever was treated as well. (Angela Howard) Patient reevaluated by myself, Dr. Weiss. Patient resting comfortably in bed. Abdomen is soft with moderate tenderness left upper quadrant. Project Crew Worker updated on results and plan. Case was discussed in detail with Dr. Fernández who did review computed tomography scan. Consult will be placed for Dr. Leal, he is covering. IV antibiotics have been started. (Neo Weiss) - Lab Data Lab Results 11/29/16 11/29/16 11/29/16 Range/Units 15:45 15:45 15:45 WBC 16.5 H (3.8-10.6) k/uL RBC 4.48 (3.80-5.40) m/uL Hgb 13.4 (11.4-16.0) gm/dL Hct 39.2 (34.0-46.0) % MCV 87.5 D (80.0-100.0) fL MCH 29.8 (25.0-35.0) pg MCHC 34.1 (31.0-37.0) g/dL RDW 12.6 (11.5-15.5) % Plt Count 167 (150-450) k/uL Neutrophils % 88 % Lymphocytes % 5 % Monocytes % 5 % Eosinophils % 1 % Basophils % 1 % Neutrophils # 14.5 H (1.3-7.7) k/uL Lymphocytes # 0.8 L (1.0-4.8) k/uL Monocytes # 0.9 (0-1.0) k/uL Eosinophils # 0.2 (0-0.7) k/uL Basophils # 0.1 (0-0.2) k/uL PT (9.0-12.0) sec INR (<1.1) APTT (22.0-30.0) sec Sodium 138 (137-145) mmol/L Potassium 4.1 (3.5-5.1) mmol/L Chloride 102 (98-107) mmol/L Carbon Dioxide 24 (22-30) mmol/L Anion Gap 12 mmol/L BUN 14 (7-17) mg/dL Creatinine 1.10 H (0.52-1.04) mg/dL Est GFR (MDRD) Af Amer >60 (>60 ml/min/1.73 sqM) Est GFR (MDRD) Non-Af 50 (>60 ml/min/1.73 sqM) Glucose 76 (74-99) mg/dL Plasma Lactic Acid Artie (0.7-2.0) mmol/L Calcium 8.9 (8.4-10.2) mg/dL Total Bilirubin 1.0 (0.2-1.3) mg/dL AST 23 (14-36) U/L ALT 35 (9-52) U/L Alkaline Phosphatase 139 H (38-126) U/L Total Creatine Kinase 56 (30-135) U/L CK-MB (CK-2) 0.3 (0.0-2.4) ng/mL CK-MB (CK-2) Rel Index 0.5 Troponin I <0.012 (0.000-0.034) ng/mL Total Protein 6.7 (6.3-8.2) g/dL Albumin 3.9 (3.5-5.0) g/dL Urine Color Urine Appearance (Clear) Urine pH (5.0-8.0) Ur Specific [place] (1.001-1.035) Urine Protein (Negative) Urine Glucose (UA) (Negative) Urine Ketones (Negative) Urine Blood (Negative) Urine Nitrite (Negative) Urine Bilirubin (Negative) Urine Urobilinogen (<2.0) mg/dL Ur Leukocyte Esterase (Negative) 11/29/16 11/29/16 11/29/16 Range/Units 15:45 15:45 16:17 WBC (3.8-10.6) k/uL RBC (3.80-5.40) m/uL Hgb (11.4-16.0) gm/dL Hct (34.0-46.0) % MCV (80.0-100.0) fL MCH (25.0-35.0) pg MCHC (31.0-37.0) g/dL RDW (11.5-15.5) % Plt Count (150-450) k/uL Neutrophils % % Lymphocytes % % Monocytes % % Eosinophils % % Basophils % % Neutrophils # (1.3-7.7) k/uL Lymphocytes # (1.0-4.8) k/uL Monocytes # (0-1.0) k/uL Eosinophils # (0-0.7) k/uL Basophils # (0-0.2) k/uL PT 10.9 (9.0-12.0) sec INR 1.1 (<1.1) APTT 26.4 (22.0-30.0) sec Sodium (137-145) mmol/L Potassium (3.5-5.1) mmol/L Chloride (98-107) mmol/L Carbon Dioxide (22-30) mmol/L Anion Gap mmol/L BUN (7-17) mg/dL Creatinine (0.52-1.04) mg/dL Est GFR (MDRD) Af Amer (>60 ml/min/1.73 sqM) Est GFR (MDRD) Non-Af (>60 ml/min/1.73 sqM) Glucose (74-99) mg/dL Plasma Lactic Acid Artie 1.3 (0.7-2.0) mmol/L Calcium (8.4-10.2) mg/dL Total Bilirubin (0.2-1.3) mg/dL AST (14-36) U/L ALT (9-52) U/L Alkaline Phosphatase (38-126) U/L Total Creatine Kinase (30-135) U/L CK-MB (CK-2) (0.0-2.4) ng/mL CK-MB (CK-2) Rel Index Troponin I (0.000-0.034) ng/mL Total Protein (6.3-8.2) g/dL Albumin (3.5-5.0) g/dL Urine Color Light Yellow Urine Appearance Clear (Clear) Urine pH 6.0 (5.0-8.0) Ur Specific [place] 1.006 (1.001-1.035) Urine Protein Negative (Negative) Urine Glucose (UA) Negative (Negative) Urine Ketones Negative (Negative) Urine Blood Negative (Negative) Urine Nitrite Negative (Negative) Urine Bilirubin Negative (Negative) Urine Urobilinogen 2.0 (<2.0) mg/dL Ur Leukocyte Esterase Negative (Negative) 11/29/16 16:54 normal sinus rhythm with sinus arrhythmia 82 bpm, normal axis, no atopy, no S-T depressions or elevations, (Angela Howard) Disposition Time of Disposition: 19:29 Decision Date: 11/29/16 Decision Time: 19:29 <Angela Howard - Last Filed: 11/29/16 19:27> <Neo Weiss - Last Filed: 11/29/16 19:44> Clinical Impression: Colitis, Sepsis Disposition: ADMITTED IP TO THIS [facility] Condition: Stable Referrals: Jerry Golden DO [Primary Care Provider] - 1-2 days
[2016-11-29] MEDS: SODIUM CHLORIDE 0.9% 500 ML IV SCH (16:00)
[2016-11-29 16:06] LABS: Basophils # (A) 0.1 k/uL (0-0.2); Basophils % (A) 1 %; CH 29.4; CHCM 33.7; Eosinophils # (A) 0.2 k/uL (0-0.7); Eosinophils % (A) 1 %; HCT 39.2 % (34.0-46.0); HDW 2.38; HGB 13.4 gm/dL (11.4-16.0); Luc # (Auto) 0.09; Luc % (Auto) 1; Lymphocytes # (A) 0.8 k/uL (1.0-4.8); Lymphocytes % (A) 5 %; MCH 29.8 pg (25.0-35.0); MCHC 34.1 g/dL (31.0-37.0); Mean Platelet Volume 7.2; Monocytes # (A) 0.9 k/uL (0-1.0); Monocytes % (A) 5 %; Neutrophils # (A) 14.5 k/uL (1.3-7.7); Neutrophils % (A) 88 %; RBC 4.48 m/uL (3.80-5.40); RDW 12.6 % (11.5-15.5); WBC 16.5 k/uL (3.8-10.6); WBC (Perox) 16.06
[2016-11-29 16:09] LABS: MCV 87.5 fL (80.0-100.0)
[2016-11-29 16:18] LABS: ALT 35 U/L (9-52); AST 23 U/L (14-36); Alkaline Phosphatase 139 U/L (38-126); Anion Gap 12 mmol/L; Blood Urea Nitrogen 14 mg/dL (7-17); Calcium 8.9 mg/dL (8.4-10.2); Carbon Dioxide 24 mmol/L (22-30); Chloride 102 mmol/L (98-107); Glucose 76 mg/dL (74-99); Non-African American GFR(MDRD) 50 (>60 ml/min/1.73 sqM); Potassium 4.1 mmol/L (3.5-5.1); Sodium 138 mmol/L (137-145); Total Protein 6.7 g/dL (6.3-8.2)
[2016-11-29 16:19] LABS: INR 1.1 (<1.1); Partial Thromboplastin Time 26.4 sec (22.0-30.0); Prothrombin Time 10.9 sec (9.0-12.0)
[2016-11-29 16:20] LABS: Appearance,Urine Clear (Clear); Bilirubin,Urine Negative (Negative); Glucose,Urine (UA) Negative (Negative); Ketones,Urine Negative (Negative); Leukocyte Esterase,Urine Negative (Negative); Nitrite,Urine Negative (Negative); Protein,Urine Negative (Negative); Specific Gravity,Urine 1.006 (1.001-1.035); UA Billing (MACRO vs. MICRO) CHEM
[2016-11-29 16:38] LABS: Creatine Kinase 56 U/L (30-135)
[2016-11-29 16:51] LABS: Creatine Kinase MB 0.3 ng/mL (0.0-2.4); Troponin I <0.012 ng/mL (0.000-0.034)
--- NOTE | 2016-11-29 16:51 | XR ---
EXAMINATION TYPE: XR chest 2V DATE OF EXAM: 11/29/2016 COMPARISON: 09/03/2016 and 02/07/2015 HISTORY: 66-year-old female with fever TECHNIQUE: AP and lateral views FINDINGS: Heart is upper limits of normal in size. Diffuse interstitial prominence similar to prior exam. There is some volume loss at the right base with crowded vascular markings. No jose consolidation or pleu ral effusion. There is a nodular density at the right perihilar region not clearly seen on 02/07/2015. IMPRESSION: 1. Chronic appearing changes. No definite acute process. 2. A right perihilar nodular density. This is not clearly seen on the 2015 exam. Recommend nonemergen t follow-up CT chest to exclude underlying pulmonary nodule.
--- NOTE | 2016-11-29 17:32 | CT ---
EXAMINATION TYPE: CT chest wo con DATE OF EXAM: 11/29/2016 COMPARISON: Chest x-ray right perihilar nodular density noted on 4:43 PM November 29, 2016 HISTORY: Patient poor historian. Pain. CT DLP: 609 mGycm. Automated Exposure Control for Dose Reduction was Utilized. TECHNIQUE: CT scan of the thorax is performed without IV contrast. FINDINGS: LUNGS/PLEURA: The radiographic right perihilar nodular density corresponds to a calcification in the right perihilar lung parenchyma, consistent with healed granuloma. Otherwise, the lungs are grossly c lear and there is no concerning parenchymal mass or nodule identified. There is no pleural effusion or pneumothorax seen. The tracheobronchial tree is patent. MEDIASTINUM: Lack of IV contrast is noted to limit evaluation for mediastinal and especially hilar ad enopathy. There are no definitive greater than 1 cm hilar or mediastinal lymph nodes. No cardiomega ly or pericardial effusion is seen. OTHER: Partially visualized edematous reticulation seen within the mesocolon of the splenic flexure, immediately caudal to the spleen. IMPRESSION: 1. Radiographic finding corresponds with healed calcified granuloma. 2. No acute thoracic process. 3. Partially-visualized incidental nonspecific left splenic flexure pericolonic edematous reticulatio n not seen on the prior 02/21/2016 CT, request correlation for clinical evidence suggesting colitis or diverticulitis.
[2016-11-29] MEDS ORDERED: RX INFO: IV CONTRAST WAS GIVEN 1 EACH MISC MISCELLANE PRN ×2 (17:40→19:43)
[2016-11-29] MEDS ORDERED: PIPERACILLIN-TAZOBACTAM 3.375 GM in DEXTROSE/WATER 1 50ML.BAG IVPB STA (19:08)
--- NOTE | 2016-11-29 19:15 | CT ---
EXAMINATION TYPE: CT abdomen pelvis wo con DATE OF EXAM: 11/29/2016 COMPARISON: 02/21/2016 CT HISTORY: Patient poor historian. Abnormal prior ct of chest. CT DLP: 992 mGycm Automated exposure control for dose reduction was used. TECHNIQUE: Helical acquisition of images was performed from the lung bases through the pelvis. FINDINGS: Within the left upper quadrant immediately caudal to the spleen is a 9 cm diameter zone of inflammatory reticular edematous change surrounding edematous jejunal bowel loops with edematous torres ge throughout the mesentery and extending centrally along the supporting bowel vasculature. This appe ars to represent loops of jejunum, but it is impossible to exclude splenic flexure involvement, as al l of these upper quadrant loops in this 9 cm diameter zone are unopacified and are matted together. There is no bowel obstruction. There is no pneumoperitoneum and no peritoneal fluid. No portal venous gas or gas within the mesenteric venous structures. No definite pneumatosis. There is no urinary tract obstruction or biliary/pancreatic obstruction. There is no mass or adenopat hy. The solid and hollow viscera of the abdomen and pelvis are otherwise unremarkable. There are no f ocal skeletal findings. IMPRESSION: SUSPECT ISCHEMIC LUQ JEJUNUM, RESULTS DISCUSSED WITH ORDERING PHYSICIAN JUST NOW. DIFFERENTIAL INCLUD ES SPLENIC FLEXURE COLITIS. Would suggest further characterization can be readily provided with full oral contrast regimen over a two-hour time. An utilizing intravenous contrast for abdominal pelvic imaging at that time.
[2016-11-29] MEDS ORDERED: ONDANSETRON 4 MG/2 ML VIAL IVP PRN (19:29)
[2016-11-29] MEDS ORDERED: MORPHINE SULFATE 4 MG/ML SYRINGE IV PRN (19:29)
[2016-11-29] MEDS ORDERED: NALOXONE 0.4 MG/ML 1 ML VIAL IV PRN (19:29)
[2016-11-29] MEDS ORDERED: IBUPROFEN 400 MG TAB PO PRN (19:29)
[2016-11-29] MEDS ORDERED: ACETAMINOPHEN TAB 325 MG TAB PO PRN (19:29)
[2016-11-29] MEDS ORDERED: traMADol 50 MG TAB PO PRN (19:31)
[2016-11-29] MEDS ORDERED: ALBUTEROL NEBULIZED 2.5 MG/3 ML INHALATION PRN (19:31)
[2016-11-29] MEDS ORDERED: IOHEXOL 350 MG/ML 25 ML BOTTLE (ORAL USE) PO PRN (19:43)
[2016-11-29] MEDS: MIRTAZAPINE 15 MG TAB PO SCH (21:26)
[2016-11-29] MEDS: PANTOPRAZOLE 40 MG TABLET PO SCH (21:26)
[2016-11-29] MEDS: risperiDONE 1 MG TAB PO SCH (21:26)
--- NOTE | 2016-11-29 23:04 | CT ---
EXAMINATION TYPE: CT abdomen pelvis w con DATE OF EXAM: 11/29/2016 COMPARISON: same day noncontrast CT HISTORY: pain CT DLP: 589 mGycm Automated exposure control for dose reduction was used. CONTRAST: Patient injected with 80 mL of Visipaque 320. FINDINGS: The radiographic oral contrast allows resolution of the splenic flexure from the left upper quadrant jejunum. The abnormalities are limited to the jejunum, and the findings are most impressive within the jejunal mesentery, where there is fluid and tiny extraluminal gas bubbles and lymph node clusters in the mesentery of the jejunal loops. Again, there is no pneumoperitoneum and no peritoneal fluid. This process is limited to the LUQ jejun um and its adjacent small bowel mesentery. The radiologic differential diagnosis primarily includes i schemia/infarction. Orally ingested foreign body which has perforated through the jejunum seems unli john given the prompt passage of orally ingested radiographic contrast. Lymphoma can have this appea ricardo, but is felt to be unlikely without additional findings. Remainder of the abdominal and pelvic examination negative for additional findings. IMPRESSION: LEFT UPPER QUADRANT JEJUNAL PROCESS RADIOGRAPHICALLY CONSISTENT WITH BOWEL INFARCTION UNTIL PROVEN OT WISE. The abnormal results were discussed with the patient's fourth floor nurse Nimisha, who was call ing them to the surgeon immediately.
[2016-11-29] MEDS: SODIUM CHLORIDE 0.9% 1,000 ML IV SCH (23:53)
[2016-11-30] MEDS: PIPERACILLIN-TAZOBACTAM 3.375 GM in DEXTROSE/WATER 1 50ML.BAG IVPB SCH ×3 (04:29→20:21)
[2016-11-30] MEDS: SODIUM CHLORIDE 0.9% 1,000 ML IV SCH ×2 (06:07→14:23)
[2016-11-30 08:36] LABS: Basophils # (A) 0.1 k/uL (0-0.2); Basophils % (A) 0 %; CH 29.8; CHCM 33.5; Eosinophils # (A) 0.2 k/uL (0-0.7); Eosinophils % (A) 2 %; HCT 37.2 % (34.0-46.0); HDW 2.42; HGB 12.3 gm/dL (11.4-16.0); Luc # (Auto) 0.07; Luc % (Auto) 1; Lymphocytes # (A) 0.6 k/uL (1.0-4.8); Lymphocytes % (A) 5 %; MCH 29.7 pg (25.0-35.0); MCHC 33.1 g/dL (31.0-37.0); MCV 89.5 fL (80.0-100.0); Mean Platelet Volume 7.1; Monocytes # (A) 0.6 k/uL (0-1.0); Monocytes % (A) 5 %; Neutrophils # (A) 11.2 k/uL (1.3-7.7); Neutrophils % (A) 88 %; RBC 4.15 m/uL (3.80-5.40); RDW 12.6 % (11.5-15.5); WBC 12.7 k/uL (3.8-10.6); WBC (Perox) 13.68
[2016-11-30 08:52] LABS: ALT 26 U/L (9-52); AST 18 U/L (14-36); Alkaline Phosphatase 120 U/L (38-126); Anion Gap 11 mmol/L; Blood Urea Nitrogen 12 mg/dL (7-17); Calcium 8.6 mg/dL (8.4-10.2); Carbon Dioxide 23 mmol/L (22-30); Chloride 107 mmol/L (98-107); Glucose 92 mg/dL (74-99); Non-African American GFR(MDRD) >60 (>60 ml/min/1.73 sqM); Potassium 3.9 mmol/L (3.5-5.1); Sodium 141 mmol/L (137-145); Total Bilirubin 1.3 mg/dL (0.2-1.3); Total Protein 5.9 g/dL (6.3-8.2)
[2016-11-30] MEDS ORDERED: FAMOTIDINE 20 MG TAB PO SCH (09:00)
[2016-11-30] MEDS ORDERED: glipiZIDE 5 MG TAB PO SCH (09:00)
[2016-11-30] MEDS: MONTELUKAST 10 MG TAB PO SCH (09:16)
[2016-11-30] MEDS: MEMANTINE 10 MG TAB PO SCH ×2 (09:16→22:04)
[2016-11-30] MEDS: DONEPEZIL 10 MG TAB PO SCH (09:16)
[2016-11-30] MEDS: SERTRALINE 50 MG TAB PO SCH (09:16)
[2016-11-30] MEDS: LORATADINE 10 MG TAB PO SCH (09:16)
[2016-11-30 09:18] LABS: Glucose,Whole Blood 86 mg/dL (75-99)
[2016-11-30 10:37] LABS: Hemoglobin A1C 5.2 % (4.2-6.1)
[2016-11-30] MEDS: INSULIN LISPRO (humaLOG) 300 UNIT/3 ML VIAL SQ SCH ×3 (12:43→22:04)
[2016-11-30] MEDS ORDERED: IV FLUID CONTINUATION 1,000 ML IV ONE (14:21)
[2016-11-30 14:35] LABS: Glucose,Whole Blood 82 mg/dL (75-99)
--- NOTE | 2016-11-30 14:47 | P.GSCN ---
History of Present Illness Consult date: 11/30/16 Reason for Consult: Acute abdominal pain History of present illness: This is a 66-year-old female who is well-known to myself and Dr. Golden. Patient had acute pain yesterday. Pain is mainly left upper quadrant. She had a CAT scan performed emergency room. CAT scan was reviewed with the radiologist morning. There is question of thalassemia versus abscess. She has a history of diverticulitis with previous sigmoid resection. Patient states her pain is worsened this morning. She states her pain is a 10 out of 10 Review of Systems - Constitutional Reports as per HPI Past Medical History Past Medical History: Asthma, Heart Failure, COPD, Dementia, Diabetes Mellitus, Deep Vein Thrombosis (DVT), GERD/Reflux, Hyperlipidemia, Myocardial Infarction ( SD), Osteoarthritis (OA), Pneumonia, Renal Disease, Seizure Disorder, Sleep Apnea/CPAP/BIPAP, Vascular Disorder Additional Past Medical History / Comment(s): Recent pneumonia and past pneumonia, diverticulosis, sleep apnea HAS CPAP,MURMUR, SEIZURES IN THE 1969'S( EPILEPSY) NO SEIZURES SINCE 1974- NOT ON MEDS FOR IT ANYMORE, IBS, PAD, TMJ, anemia, nephrolithiasis, stomach ulcer, ESTEFANY-has CPAP but pulls off at times, as child fell and had a needle get stuck in her head around age 4 and was never removed. RECENT FALL IN BATHROOM WITH FX AND LACERATION TO NOSE- Last Myocardial Infarction Date:: 1991 History of Any Multi-Drug Resistant Organisms: None Reported Past Surgical History: Adenoidectomy, Appendectomy, Bowel Resection, Cholecystectomy, Hernia Repair, Hysterectomy, Joint Replacement, Orthopedic Surgery, Tonsillectomy Additional Past Surgical History / Comment(s): partial colon resection with colostomy then reversal, SILVERIO KNEE ARTHROSCOPY,Right KNEE REPLACEMENT, EGDs and colonoscopies, lipomas off back, cyst off spine, eye duct surgery Past Anesthesia/Blood Transfusion Reactions: Previous Problems w/ Anesthesia, Motion Sickness Additional Past Anesthesia/Blood Transfusion Reaction / Comm: DIFFICULTY WAKING UP. CLAUSTERPHOBIC Past Psychological History: Anxiety, Bipolar Additional Psychological History / Comment(s): DYSLEXIA but is able to read and write with some difficulty. Pt resides with her sisters, Reny who is also her legal guardian and other sister Michelle. They are her caretakers. Pt uses a walker to ambulate. She does not drive, Michelle takes her to appts. pt also has dementia and is deaf Smoking Status: Never smoker Past Alcohol Use History: None Reported Past Drug Use History: None Reported - Past Family History Father Family Medical History: Cancer Additional Family Medical History / Comment(s): Father had lung cancer. Mother Family Medical History: Congestive Heart Failure (CHF), Dementia, Myocardial Infarction (SD) Medications and Allergies Home Medications Medication Instructions Recorded Confirmed Type Albuterol Sulfate [Proair Hfa] 2 puff INHALATION RT-QID PRN 06/24/14 11/29/16 History Donepezil [Aricept] 10 mg PO DAILY 02/07/15 11/29/16 History Loratadine 10 mg PO QAM 06/28/16 11/29/16 History Montelukast Sodium [Singulair] 10 mg PO DAILY 06/28/16 11/29/16 History Omeprazole [PriLOSEC] 20 mg PO HS 06/28/16 11/29/16 History Memantine HCl [Namenda Xr] 28 mg PO DAILY 07/15/16 11/29/16 History risperiDONE [RisperDAL] 1 mg PO HS 08/16/16 11/29/16 History Famotidine [Pepcid] 20 mg PO DAILY 09/03/16 11/29/16 History glipiZIDE [Glucotrol] 5 mg PO DAILY 09/03/16 11/29/16 History Sertraline [Zoloft] 50 mg PO QAM 11/22/16 11/29/16 History traMADol HCL [Ultram] 50 mg PO BID PRN 11/22/16 11/29/16 History Mirtazapine 7.5 mg PO HS 11/29/16 11/29/16 History Allergies Allergy/AdvReac Type Severity Reaction Status Date / Time codeine Allergy Rash/Hives Verified 11/22/16 18:56 lorazepam [From Ativan] Allergy Rash/Hives Verified 11/22/16 18:56 oxaprozin [From Daypro] Allergy Rash/Hives Verified 11/22/16 18:56 Sulfa (Sulfonamide Allergy Rash/Hives Verified 11/22/16 18:56 Antibiotics) baclofen AdvReac Unknown Psychotic Verified 11/29/16 15:45 Episode cyclobenzaprine HCl AdvReac Confusion Verified 11/22/16 18:56 [From Flexeril] Surgical - Exam Vital Signs Temp Pulse Resp BP Pulse Ox 101.0 F H 91 16 132/70 94 L 11/29/16 14:43 11/29/16 14:43 11/29/16 14:43 11/29/16 14:43 11/29/16 14:43 - General well developed, well nourished, moderate distress - Eyes PERRL - ENT normal pinna - Neck no masses - Respiratory normal expansion - Cardiovascular Rhythm: regular - Abdomen Abdomen is soft. There is rebound tenderness. The pain is mainly located left upper quadrant. Abdomen: soft Results - Labs 11/30/16 08:19 11/30/16 08:19 Abnormal Lab Results - Last 24 Hours (Table) 11/29/16 11/29/16 11/30/16 Range/Units 15:45 15:45 08:19 WBC 16.5 H 12.7 H (3.8-10.6) k/uL Plt Count 141 L (150-450) k/uL Neutrophils # 14.5 H 11.2 H (1.3-7.7) k/uL Lymphocytes # 0.8 L 0.6 L (1.0-4.8) k/uL Creatinine 1.10 H (0.52-1.04) mg/dL Alkaline Phosphatase 139 H (38-126) U/L Total Protein (6.3-8.2) g/dL Albumin (3.5-5.0) g/dL 11/30/16 Range/Units 08:19 WBC (3.8-10.6) k/uL Plt Count (150-450) k/uL Neutrophils # (1.3-7.7) k/uL Lymphocytes # (1.0-4.8) k/uL Creatinine (0.52-1.04) mg/dL Alkaline Phosphatase (38-126) U/L Total Protein 5.9 L (6.3-8.2) g/dL Albumin 3.2 L (3.5-5.0) g/dL Microbiology - Last 24 Hours (Table) 11/29/16 16:17 Urine Culture - Preliminary Urine,Catheterized Diabetes panel 11/29/16 11/30/16 11/30/16 Range/Units 15:45 08:19 08:19 Sodium 138 141 (137-145) mmol/L Potassium 4.1 3.9 (3.5-5.1) mmol/L Chloride 102 107 (98-107) mmol/L Carbon Dioxide 24 23 (22-30) mmol/L BUN 14 12 (7-17) mg/dL Creatinine 1.10 H 0.82 (0.52-1.04) mg/dL Glucose 76 92 (74-99) mg/dL Hemoglobin A1c 5.2 (4.2-6.1) % Calcium 8.9 8.6 (8.4-10.2) mg/dL AST 23 18 (14-36) U/L ALT 35 26 (9-52) U/L Alkaline Phosphatase 139 H 120 (38-126) U/L Total Protein 6.7 5.9 L (6.3-8.2) g/dL Albumin 3.9 3.2 L (3.5-5.0) g/dL Calcium panel 11/29/16 11/30/16 Range/Units 15:45 08:19 Calcium 8.9 8.6 (8.4-10.2) mg/dL Albumin 3.9 3.2 L (3.5-5.0) g/dL Pituitary panel 11/29/16 11/30/16 Range/Units 15:45 08:19 Sodium 138 141 (137-145) mmol/L Potassium 4.1 3.9 (3.5-5.1) mmol/L Chloride 102 107 (98-107) mmol/L Carbon Dioxide 24 23 (22-30) mmol/L BUN 14 12 (7-17) mg/dL Creatinine 1.10 H 0.82 (0.52-1.04) mg/dL Glucose 76 92 (74-99) mg/dL Calcium 8.9 8.6 (8.4-10.2) mg/dL Adrenal panel 11/29/16 11/30/16 Range/Units 15:45 08:19 Sodium 138 141 (137-145) mmol/L Potassium 4.1 3.9 (3.5-5.1) mmol/L Chloride 102 107 (98-107) mmol/L Carbon Dioxide 24 23 (22-30) mmol/L BUN 14 12 (7-17) mg/dL Creatinine 1.10 H 0.82 (0.52-1.04) mg/dL Glucose 76 92 (74-99) mg/dL Calcium 8.9 8.6 (8.4-10.2) mg/dL Total Bilirubin 1.0 1.3 (0.2-1.3) mg/dL AST 23 18 (14-36) U/L ALT 35 26 (9-52) U/L Alkaline Phosphatase 139 H 120 (38-126) U/L Total Protein 6.7 5.9 L (6.3-8.2) g/dL Albumin 3.9 3.2 L (3.5-5.0) g/dL Assessment and Plan Plan: Acute abdomen. Patient will undergo exploratory laparotomy today. I discussed the family that she may require a bowel resection or colostomy.
[2016-11-30] MEDS ORDERED: fentaNYL (PF) 50 MCG/ML 2 ML AMP ONE (15:59)
[2016-11-30] MEDS ORDERED: PROPOFOL 10 MG/ML 20 ML VIAL IV ONE (15:59)
[2016-11-30] MEDS ORDERED: SUCCINYLCHOLINE CHLORIDE 100 MG/5 ML SYR IV ONE (15:59)
[2016-11-30] MEDS ORDERED: MIDAZOLAM 2 MG/2 ML VIAL ONE (15:59)
[2016-11-30] MEDS ORDERED: ROCURONIUM BROMIDE 10 MG/ML 10 ML VIAL IV ONE (15:59)
[2016-11-30] MEDS ORDERED: HEPARIN SODIUM,PORCINE 5,000 UNIT/ML 1 ML VIAL SQ ONE (16:00)
[2016-11-30] MEDS ORDERED: LACTATED RINGERS 1,000 ML IV ONE (16:52)
[2016-11-30] MEDS ORDERED: NALOXONE 0.4 MG/ML 1 ML VIAL IV PRN (17:12)
[2016-11-30] MEDS ORDERED: ACETAMINOPHEN TAB 325 MG TAB PO PRN (17:12)
[2016-11-30] MEDS ORDERED: METOCLOPRAMIDE 5 MG/ML 2 ML VIAL IVP PRN (17:12)
[2016-11-30] MEDS ORDERED: HYDROmorphone 1 MG/ML 1 ML SYRINGE IVP PRN (17:12)
--- NOTE | 2016-11-30 17:12 | P.OP ---
Date of Procedure: 11/30/16 Preoperative Diagnosis: Small bowel infarction Postoperative Diagnosis: Small bowel mass with possible mesenteric abscess Procedure(s) Performed: Exposure laparotomy Lysis of adhesions Small bowel resection Implants: Anesthesia: MARCIAL Surgeon: Jose Juan Leal Estimated Blood Loss (ml): 5 Pathology: other (Small bowel) Condition: stable Disposition: PACU Indications for Procedure: Operative Findings: Description of Procedure: Patient's placed the operative table in supine position. She received general anesthesia. Her abdomen was prepped and draped usual fashion. The area was entered through midline incision. Patient previous incisional hernia. The mesh was divided and then there were adhesions noted in the peritoneal cavity. The adhesions were lysed using sharp dissection present 15 minutes operative time used to lyse adhesions. Small bowel was run fluid Treitz and in the left upper quadrant there was a small bowel inflammatory mass. There appeared to be extension of the mass into the mesentery. The mass appeared to be inflamed. At this point a limited small bowel resection was performed by dividing the small bowel proximally distally to the mass using the linear cutter stapler. A [id number] functional end-to-end staple anastomosis created using the linear cutter and TX 60 stapler. 3-0 GI silk sutures were a crotch stitch. The abdomen is very. There is no bleeding seen. The fascia is closed loop #1 PDS suture. Skin was closed nhan. Patient top she will was sent to recovery in stable condition. The patient was scheduled to be admitted to the ICU.
--- NOTE | 2016-11-30 17:38 | P.PCN ---
Date of Procedure: 11/30/16 Preoperative Diagnosis: Small bowel infarction infarction Postoperative Diagnosis: Small bowel mass with possible mesenteric abscess Procedure(s) Performed: Right IJ triple lumen catheter placement Implants: Anesthesia: local Surgeon: Sergey Aguilar Estimated Blood Loss (ml): 3 IV fluids (ml): 25 Urine output (ml): 0 Pathology: none sent Condition: stable Disposition: ICU Indications for Procedure: Lack of peripheral IV access for emergency exploratory laparotomy Operative Findings: Description of Procedure: Cap, sterile gown, mask, sterile gloves. With the patient in approx 10 deg. trendelenberg the right neck was sterilely prepped and draped. 1/2 cc 1% plain lidocaine skin wheal was raised at the cephalad confluence of the sternal and clavicular head of the sternocleidomastoid muscle. the R IJ was then entered with the 25 ga skin wheal needle and the R IJ canualted with an 18 ga catheter with some difficulty. A flexible j wire was placed, the skin nicked over the wire, and a dilator was advanced into the IJ. The triple lumen catneter was then advanced over the guide wire, aspirated, flushed and secured with suture. The site was then dressed with a bio-patch and a tegaderm.
[2016-11-30] MEDS ORDERED: PROPOFOL 0 ML IV ONE (18:00)
[2016-11-30] MEDS ORDERED: PROPOFOL 500 MG in EMPTY BAG 1 BAG IV SCH (18:00)
[2016-11-30 18:15] LABS: Glucose,Whole Blood 85 mg/dL (75-99)
[2016-11-30] MEDS: LACTATED RINGERS 1,000 ML IV ONE (18:19)
--- NOTE | 2016-11-30 18:27 | XR ---
EXAMINATION TYPE: XR chest 1V portable DATE OF EXAM: 11/30/2016 COMPARISON: Yesterday HISTORY: Catheter placement TECHNIQUE: Single frontal view of the chest is obtained. FINDINGS: There is some mild infiltrate and atelectasis in the left lower lobe. Endotracheal tube ap pears in good position. Nasogastric tube is in good position. There is a right jugular catheter with the tip in the superior vena cava. There is no sign of a pneumothorax. There are chest leads. IMPRESSION: There is new mild infiltrate and atelectasis in the left lower lobe compared to yesterda y.
[2016-11-30] MEDS: KETOROLAC 30 MG/ML 1 ML VIAL IVP SCH ×2 (18:52→23:51)
[2016-11-30 19:06] LABS: ABG Base Excess -4.5 mmol/L; ABG HCO3 18 mmol/L (21-25); ABG Oxygen Saturation 99.8 % (94-97); ABG PCO2 22 mmHg (35-45); ABG PH 7.52 (7.35-7.45); ABG PO2 188 mmHg (83-108); ABG TCO2 19 mmol/L (19-24)
--- NOTE | 2016-11-30 19:19 | P.CNPUL ---
History of Present Illness Consult date: 11/30/16 Chief complaint: Laparotomy, bowel resection History of present illness: 66-year-old female patient, presented to the hospital because of abdominal pain. Pain was mainly in the left upper quadrant. She had a CAT scan of the abdomen that was done in the emergency department and the CAT scan showed left upper quadrant Jujenal process consistent with bowel infarction versus abscess. The other possibilities within the differential diagnosis included bowel ischemia/infarct/foreign body/small bowel lymphoma. Based on all this the patient was taken to the operating room and exploration was done with small bowel was run fluid Treitz and in the left upper quadrant there was a small bowel inflammatory mass. There appeared to be extension of the mass into the mesentery. The mass appeared to be inflamed. At this point a limited small bowel resection was performed by dividing the small bowel proximally distally to the mass using the linear cutter stapler. A [id number] functional end-to- end staple anastomosis created . Postop, the patient was brought into the intensive care unit intubated on a mechanical ventilator. At this point in time , the patient sedated with Diprivan which is running at 10 mics. She is an assist-control mode of ventilation at the rate of 12, tidal volume 450, FiO2 of 50% and PEEP of 5. Chest x-ray shows adequate expansion of both lungs and ET tube is in a good location and the OG tube is also elevated location. Had blood gases that showed a component of acute respiratory alkalosis with a pH of 7.52 and a pCO2 of 22 and pO2 188. Hemodynamically she is stable. She is on a solution at the rate of 1 25 mL an hour. The patient is also on IV Zosyn. She is easily arousable. She is gently sedated for now. She has an adequate urine output. No discomfort. She is on subcu heparin for DVT prophylaxis. She is also on Protonix for GI prophylaxis. Review of Systems ROS unobtainable: due to endotracheal tube Past Medical History Past Medical History: Asthma, Coronary Artery Disease (CAD), Heart Failure, Dementia, Diabetes Mellitus, Deep Vein Thrombosis (DVT), GERD/Reflux, Hyperlipidemia, Myocardial Infarction (VT), Osteoarthritis (OA), Pneumonia, Renal Disease, Seizure Disorder, Sleep Apnea/CPAP/BIPAP, Vascular Disorder Additional Past Medical History / Comment(s): Bronchial asthma, dementia, diabetes mellitus, hyperlipidemia, coronary artery disease with previous myocardial infarction, seizure disorder many years back and the patient has not been on seizure medication. Her last seizure was back in the 70s., sleep apnea , obstructive sleep apnea with suboptimal compliance to CPAP therapy, recent fall with a nasal fracture which has hindered our ability to put in a NG tube is still bowel syndrome, TMJ, chronic anemia, peripheral vascular disease, diverticulosis, cardiac murmur, remote history of DVT, diabetes mellitus, bipolar disorder Last Myocardial Infarction Date:: 1991 History of Any Multi-Drug Resistant Organisms: None Reported Past Surgical History: Adenoidectomy, Appendectomy, Bowel Resection, Cholecystectomy, Hernia Repair, Hysterectomy, Joint Replacement, Orthopedic Surgery, Tonsillectomy Additional Past Surgical History / Comment(s): partial colon resection with colostomy then reversal, SILVERIO KNEE ARTHROSCOPY,Right KNEE REPLACEMENT, EGDs and colonoscopies, lipomas off back, cyst off spine, eye duct surgery Past Anesthesia/Blood Transfusion Reactions: Previous Problems w/ Anesthesia, Motion Sickness Additional Past Anesthesia/Blood Transfusion Reaction / Comment(s): DIFFICULTY WAKING UP. CLAUSTERPHOBIC Past Psychological History: Anxiety, Bipolar Additional Psychological History / Comment(s): DYSLEXIA but is able to read and write with some difficulty. Pt resides with her sisters, Reny who is also her legal guardian and other sister Michelle. They are her caretakers. Dru uses a walker to ambulate. She does not drive, Michelle takes her to appts. pt also has dementia and is deaf Smoking Status: Never smoker Past Alcohol Use History: None Reported Past Drug Use History: None Reported - Past Family History Father Family Medical History: Cancer Additional Family Medical History / Comment(s): Father had lung cancer. Mother Family Medical History: Congestive Heart Failure (CHF), Dementia, Myocardial Infarction (VT) Medications and Allergies Home Medications Medication Instructions Recorded Confirmed Type Albuterol Sulfate [Proair Hfa] 2 puff INHALATION RT-QID PRN 06/24/14 11/29/16 History Donepezil [Aricept] 10 mg PO DAILY 02/07/15 11/29/16 History Loratadine 10 mg PO QAM 06/28/16 11/29/16 History Montelukast Sodium [Singulair] 10 mg PO DAILY 06/28/16 11/29/16 History Omeprazole [PriLOSEC] 20 mg PO HS 06/28/16 11/29/16 History Memantine HCl [Namenda Xr] 28 mg PO DAILY 07/15/16 11/29/16 History risperiDONE [RisperDAL] 1 mg PO HS 08/16/16 11/29/16 History Famotidine [Pepcid] 20 mg PO DAILY 09/03/16 11/29/16 History glipiZIDE [Glucotrol] 5 mg PO DAILY 09/03/16 11/29/16 History Sertraline [Zoloft] 50 mg PO QAM 11/22/16 11/29/16 History traMADol HCL [Ultram] 50 mg PO BID PRN 11/22/16 11/29/16 History Mirtazapine 7.5 mg PO HS 11/29/16 11/29/16 History Allergies Allergy/AdvReac Type Severity Reaction Status Date / Time codeine Allergy Rash/Hives Verified 11/22/16 18:56 lorazepam [From Ativan] Allergy Rash/Hives Verified 11/22/16 18:56 oxaprozin [From Daypro] Allergy Rash/Hives Verified 11/22/16 18:56 Sulfa (Sulfonamide Allergy Rash/Hives Verified 11/22/16 18:56 Antibiotics) baclofen AdvReac Unknown Psychotic Verified 11/29/16 15:45 Episode cyclobenzaprine HCl AdvReac Confusion Verified 11/22/16 18:56 [From Flexeril] Physical Exam Vitals: Vital Signs Temp Pulse Pulse Resp BP BP Pulse Ox 11/30/16 18:30 91 12 145/70 100 11/30/16 18:15 94 12 153/66 100 11/30/16 18:12 98 F 80 12 153/66 100 11/30/16 14:23 98.9 F 65 16 123/64 96 11/30/16 07:00 96.0 F L 69 18 138/68 96 11/30/16 06:10 96.4 F L 64 18 118/70 97 11/30/16 02:09 97.0 F L 60 18 148/72 95 11/29/16 23:00 96.3 F L 69 18 132/73 99 11/29/16 20:41 96.6 F L 62 18 131/62 97 11/29/16 19:56 98.5 F 70 18 126/61 95 Intake and Output 06/30/17 06/30/17 06/30/17 06:59 14:59 22:59 Intake Total 450 0 525.88 Output Total 350 430 Balance 450 -350 95.88 Intake: IV 0 525 Lactated Ringers 1,000 ml 125 @ 125 mls/hr IV .Q8H [facility] Rx#:[id number] Intake, IV Titration 450 0.88 Amount Piperacillin-Tazobactam 3 50 .375 gm In Dextrose/Water 1 50ml.bag @ 12.5 mls/hr IVPB [facility] Rx#: [id number] Propofol 500 mg In Empty 0.88 Bag 1 bag @ Titrate IV . Q0M [facility] Rx#:[id number] Sodium Chloride 0.9% 1, 400 000 ml @ 100 mls/hr IV . Q10H [facility] Rx#:[id number] Output: Urine 350 400 Estimated Blood Loss 30 Other: Voiding Method Bedside Commode # Voids 3 1 # Bowel Movements 1 Weight 58.967 kg Patient Weight 12/01/16 06:59 Weight 58.967 kg Head exam was generally normal. There was no scleral icterus or corneal arcus. Mucous membranes were moist. The patient has an orogastric and orotracheal tube in place. The patient is well sedated with Diprivan and the patient is calm and comfortable. Neck was supple and without jugular venous distension, thyromegaly, or carotid bruits. Carotids were easily palpable bilaterally. There was no adenopathy. Lung sounds are diminished otherwise clear. Heart sounds are regular, positive S1-S2, systolic ejection murmur grade 2/6 heard throughout the precordium,Abdominal exam revealed was soft, non-tender, and without masses, organomegaly, or appreciable enlargement of the abdominal aorta. The bowel sounds are hypoactive and the surgical wound site is clean at this point over the anterior abdominal wall.Examination of the extremities revealed easily palpable radial, femoral and pedal pulses. There was no cyanosis , clubbing or edema. Results - Laboratory Findings CBC and BMP: 11/30/16 08:19 11/30/16 08:19 ABG ABG pH 7.52 (7.35-7.45) H 11/30/16 18:50 ABG pCO2 22 mmHg (35-45) L 11/30/16 18:50 ABG pO2 188 mmHg (83-108) H 11/30/16 18:50 ABG O2 Saturation 99.8 % (94-97) H 11/30/16 18:50 PT/INR, D-dimer PT 10.9 sec (9.0-12.0) 11/29/16 15:45 INR 1.1 (<1.1) 11/29/16 15:45 Abnormal lab findings: Abnormal Labs 11/29/16 11/29/16 11/30/16 15:45 15:45 08:19 WBC 16.5 H 12.7 H Plt Count 141 L Neutrophils # 14.5 H 11.2 H Lymphocytes # 0.8 L 0.6 L ABG pH ABG pCO2 ABG pO2 ABG HCO3 ABG O2 Saturation Creatinine 1.10 H Alkaline Phosphatase 139 H Total Protein Albumin 11/30/16 11/30/16 08:19 18:50 WBC Plt Count Neutrophils # Lymphocytes # ABG pH 7.52 H ABG pCO2 22 L ABG pO2 188 H ABG HCO3 18 L ABG O2 Saturation 99.8 H Creatinine Alkaline Phosphatase Total Protein 5.9 L Albumin 3.2 L - Diagnostic Findings Chest x-ray: image reviewed Assessment and Plan Plan: Assessment 1 expiratory laparotomy and small bowel resection with the potential of a underlying inflammatory/malignant small bowel lesion/mass. Patient is postop day #0. Currently on IV Zosyn. Hemodynamically stable. Nothing by mouth. Orogastric tube in place. 2 postoperative ventilator dependence. The patient was brought into the intensive care unit intubated on a mechanical ventilator. There was concern of the patient's comorbidities will hinder her ability to wean successfully from the mechanical ventilator and the patient was not extubated in the operating room. Chest x-rays clear and the blood gases are showing a component of respiratory alkalosis. 3 Bronchial asthma, currently inactive in stable 4 dementia, 5 diabetes mellitus, maintained on oral hypoglycemics and the patient will be placed on this a scale coverage for now 6 hyperlipidemia 7 coronary artery disease with previous myocardial infarction 8 seizure disorder many years back and the patient has not been on seizure medication. Her last seizure was back in the 70s., 9 sleep apnea, obstructive sleep apnea with suboptimal compliance to CPAP therapy 10 recent fall with a nasal fracture which has hindered our ability to put in a NG tube is still bowel syndrome 11 chronic anemia 12 peripheral vascular disease 13 diverticulosis, with previous history of bowel resection, colostomy and subsequent reversal. 14 cardiac murmur 15 remote history of DVT 16 bipolar disorder Plan The patient is hemodynamically stable. The patient is easily arousable from the mechanical ventilator. Chest x-ray was reviewed. Blood gases was reviewed. I do not see any issues asked to bring this patient today in the intensive care unit. Based on that, made recommendations to stop the prevent assessment weaning parameters and give the patient is point is breathing trial and if the patient is able to tolerate 30-45 minutes of a spontaneous breathing trial with a pressure support of 5 the patient will be extubated today. Meanwhile continue the lactated Ringer at the rate of 100 mL an hour. Remove the old G-tube postextubation and consider an NG tube at a later stage. Heparin subcu for DVT prophylaxis. IV Zosyn. Repeat electrolytes and blood work in a.m. Awaiting postop surgical findings from the surgical specimen that was done at the time of the bowel resection. We'll continue to follow up this patient along with the surgical team.
[2016-11-30 20:40] LABS: Glucose,Whole Blood 110 mg/dL (75-99)
[2016-11-30] MEDS: CHLORHEXIDINE GLUCONATE 15 ML CUP MUCOUS MEM SCH (21:15)
[2016-11-30] MEDS: risperiDONE 1 MG TAB PO SCH (22:04)
[2016-11-30] MEDS: PANTOPRAZOLE 40 MG TABLET PO SCH (22:04)
[2016-11-30] MEDS: MIRTAZAPINE 15 MG TAB PO SCH (22:04)
[2016-11-30] MEDS: PANTOPRAZOLE 40 MG/10 ML VIAL IVP SCH (23:47)
[2016-11-30] MEDS: HEPARIN SODIUM,PORCINE 5,000 UNIT/ML 1 ML VIAL SQ SCH (23:52)
[2016-12-01] MEDS: PIPERACILLIN-TAZOBACTAM 3.375 GM in DEXTROSE/WATER 1 50ML.BAG IVPB SCH ×3 (04:39→20:09)
[2016-12-01] MEDS: KETOROLAC 30 MG/ML 1 ML VIAL IVP SCH ×3 (06:19→18:15)
[2016-12-01 06:42] LABS: Basophils % (A) 0 %; Eosinophils # (A) 0.1 k/uL (0-0.7); Eosinophils % (A) 1 %; HCT 29.2 % (34.0-46.0); HDW 2.45; Luc # (Auto) 0.08; Luc % (Auto) 1; Lymphocytes # (A) 0.7 k/uL (1.0-4.8); Lymphocytes % (A) 7 %; MCH 30.2 pg (25.0-35.0); MCHC 34.2 g/dL (31.0-37.0); MCV 88.3 fL (80.0-100.0); Mean Platelet Volume 7.5; Monocytes # (A) 0.6 k/uL (0-1.0); Monocytes % (A) 6 %; Neutrophils # (A) 8.5 k/uL (1.3-7.7); Neutrophils % (A) 86 %; RDW 12.4 % (11.5-15.5); WBC 9.8 k/uL (3.8-10.6); WBC (Perox) 10.51
[2016-12-01 07:25] LABS: ALT 34 U/L (9-52); AST 25 U/L (14-36); Alkaline Phosphatase 131 U/L (38-126); Anion Gap 10 mmol/L; Blood Urea Nitrogen 13 mg/dL (7-17); Calcium 8.2 mg/dL (8.4-10.2); Carbon Dioxide 22 mmol/L (22-30); Chloride 108 mmol/L (98-107); Glucose 130 mg/dL (74-99); Magnesium 1.8 mg/dL (1.6-2.3); Non-African American GFR(MDRD) >60 (>60 ml/min/1.73 sqM); Phosphorous 3.2 mg/dL (2.5-4.5); Potassium 3.8 mmol/L (3.5-5.1); Sodium 140 mmol/L (137-145); Total Bilirubin 1.4 mg/dL (0.2-1.3); Total Protein 5.1 g/dL (6.3-8.2)
--- NOTE | 2016-12-01 08:03 | XR ---
EXAMINATION TYPE: XR chest 1V portable DATE OF EXAM: 12/01/2016 COMPARISON: 11/30/2016 INDICATION: Difficulty breathing TECHNIQUE: Single frontal view of the chest is obtained. FINDINGS: The heart size is normal. The pulmonary vasculature is normal. No suspicious infiltrates are present. Endotracheal tube is present with tip above the aretha. Nasogastric tube transverses the thorax with tip in left upper quadrant of the abdomen. Right central venous catheter is present with the tip in t he proximal right atrium. EKG leads overlie the upper abdomen. IMPRESSION: 1. No suspicious infiltrates. 2. Multiple lines and catheters discussed above
[2016-12-01] MEDS: INSULIN LISPRO (humaLOG) 300 UNIT/3 ML VIAL SQ SCH ×4 (08:42→21:09)
[2016-12-01] MEDS: MEMANTINE 10 MG TAB PO SCH ×2 (08:49→20:10)
[2016-12-01] MEDS: PANTOPRAZOLE 40 MG/10 ML VIAL IVP SCH (08:49)
[2016-12-01] MEDS: CHLORHEXIDINE GLUCONATE 15 ML CUP MUCOUS MEM SCH ×2 (08:50→20:09)
[2016-12-01] MEDS: LORATADINE 10 MG TAB PO SCH (08:50)
[2016-12-01] MEDS: SERTRALINE 50 MG TAB PO SCH (08:50)
[2016-12-01] MEDS: DONEPEZIL 10 MG TAB PO SCH (08:50)
[2016-12-01] MEDS: HEPARIN SODIUM,PORCINE 5,000 UNIT/ML 1 ML VIAL SQ SCH ×2 (08:50→18:11)
[2016-12-01] MEDS: MONTELUKAST 10 MG TAB PO SCH (08:50)
--- NOTE | 2016-12-01 09:58 | P.PN ---
Subjective 66-year-old female patient, presented to the hospital because of abdominal pain. Pain was mainly in the left upper quadrant. She had a CAT scan of the abdomen that was done in the emergency department and the CAT scan showed left upper quadrant Jujenal process consistent with bowel infarction versus abscess. The other possibilities within the differential diagnosis included bowel ischemia/infarct/foreign body/small bowel lymphoma. Based on all this the patient was taken to the operating room and exploration was done with small bowel was run fluid Treitz and in the left upper quadrant there was a small bowel inflammatory mass. There appeared to be extension of the mass into the mesentery. The mass appeared to be inflamed. At this point a limited small bowel resection was performed by dividing the small bowel proximally distally to the mass using the linear cutter stapler. A [id number] functional end-to- end staple anastomosis created . Postop, the patient was brought into the intensive care unit intubated on a mechanical ventilator. At this point in time , the patient sedated with Diprivan which is running at 10 mics. She is an assist-control mode of ventilation at the rate of 12, tidal volume 450, FiO2 of 50% and PEEP of 5. Chest x-ray shows adequate expansion of both lungs and ET tube is in a good location and the OG tube is also elevated location. Had blood gases that showed a component of acute respiratory alkalosis with a pH of 7.52 and a pCO2 of 22 and pO2 188. Hemodynamically she is stable. She is on a solution at the rate of 1 25 mL an hour. The patient is also on IV Zosyn. She is easily arousable. She is gently sedated for now. She has an adequate urine output. No discomfort. She is on subcu heparin for DVT prophylaxis. She is also on Protonix for GI prophylaxis. On 12/01/2016 the patient is being seen in follow-up. This morning she is awake and alert. Overnight she received a total of 3 L of IV fluid. Urine output remains low at around 10 mL an hour. She is however awake and alert and she is following commands and responding appropriately. She has good weaning parameters. Her chest x-ray is also clear. ET tube is in a good location. No significant atelectatic changes in lung bases bilaterally. No pneumonia. No airspace disease. The OG tube is also in place and output has been minimal since she came from the operating room. Abdomen is nondistended. Surgical wound site is dry clean and intact. No abdominal distention. No abdominal pain. No significant edema in her upper and lower extremities. She is afebrile. She is on IV Zosyn. She is on DVT and GI prophylaxis. Objective - Vital Signs Vital signs: Vital Signs Temp 99.8 F H 11/30/16 23:32 Pulse 75 12/01/16 06:00 Resp 13 12/01/16 06:00 BP 105/58 12/01/16 06:00 Pulse Ox 100 12/01/16 06:00 Intake & Output 11/30/16 12/01/16 12/01/16 18:59 06:59 18:59 Intake Total 525.88 1575 Output Total 780 282 Balance -254.12 1293 Weight 58.967 kg 62.8 kg Intake: IV 525 1475 0.9 at KVO 100 Lactated Ringers 1,000 ml 125 1375 @ 125 mls/hr IV .Q8H [facility] Rx#:[id number] Intake, IV Titration 0.88 100 Amount Piperacillin-Tazobactam 3 100 .375 gm In Dextrose/Water 1 50ml.bag @ 12.5 mls/hr IVPB Q8H [facility] Rx#: [id number] Propofol 500 mg In Empty 0.88 Bag 1 bag @ Titrate IV . Q0M [facility] Rx#:[id number] Output: Gastric Drainage 0 Urine 750 282 Uretheral (Casarez) 35 Estimated Blood Loss 30 Other: Voiding Method Indwelling Catheter Indwelling Catheter # Voids 1 # Bowel Movements 1 - Exam Head exam was generally normal. There was no scleral icterus or corneal arcus. Mucous membranes were moist. The patient has an orogastric and orotracheal tube in place. The patient is well sedated with Diprivan and the patient is calm and comfortable. Neck was supple and without jugular venous distension, thyromegaly, or carotid bruits. Carotids were easily palpable bilaterally. There was no adenopathy. Lung sounds are diminished otherwise clear. Heart sounds are regular, positive S1-S2, systolic ejection murmur grade 2/6 heard throughout the precordium,Abdominal exam revealed was soft, non-tender, and without masses, organomegaly, or appreciable enlargement of the abdominal aorta. The bowel sounds are hypoactive and the surgical wound site is clean at this point over the anterior abdominal wall.Examination of the extremities revealed easily palpable radial, femoral and pedal pulses. There was no cyanosis , clubbing or edema. - Labs CBC & Chem 7: 12/01/16 06:24 12/01/16 06:24 Labs: Abnormal Lab Results - Last 24 Hours (Table) 11/30/16 11/30/16 12/01/16 Range/Units 18:50 20:37 06:24 RBC 3.30 L (3.80-5.40) m/uL Hgb 10.0 L D (11.4-16.0) gm/dL Hct 29.2 L (34.0-46.0) % Plt Count 147 L (150-450) k/uL Neutrophils # 8.5 H (1.3-7.7) k/uL Lymphocytes # 0.7 L (1.0-4.8) k/uL ABG pH 7.52 H (7.35-7.45) ABG pCO2 22 L (35-45) mmHg ABG pO2 188 H (83-108) mmHg ABG HCO3 18 L (21-25) mmol/L ABG O2 Saturation 99.8 H (94-97) % Chloride (98-107) mmol/L Glucose (74-99) mg/dL POC Glucose (mg/dL) 110 H (75-99) mg/dL Calcium (8.4-10.2) mg/dL Total Bilirubin (0.2-1.3) mg/dL Alkaline Phosphatase (38-126) U/L Total Protein (6.3-8.2) g/dL Albumin (3.5-5.0) g/dL 12/01/16 Range/Units 06:24 RBC (3.80-5.40) m/uL Hgb (11.4-16.0) gm/dL Hct (34.0-46.0) % Plt Count (150-450) k/uL Neutrophils # (1.3-7.7) k/uL Lymphocytes # (1.0-4.8) k/uL ABG pH (7.35-7.45) ABG pCO2 (35-45) mmHg ABG pO2 (83-108) mmHg ABG HCO3 (21-25) mmol/L ABG O2 Saturation (94-97) % Chloride 108 H (98-107) mmol/L Glucose 130 H (74-99) mg/dL POC Glucose (mg/dL) (75-99) mg/dL Calcium 8.2 L (8.4-10.2) mg/dL Total Bilirubin 1.4 H (0.2-1.3) mg/dL Alkaline Phosphatase 131 H (38-126) U/L Total Protein 5.1 L (6.3-8.2) g/dL Albumin 2.6 L (3.5-5.0) g/dL Microbiology - Last 24 Hours (Table) 11/29/16 16:17 Urine Culture - Final Urine,Catheterized 11/29/16 15:45 Blood Culture - Preliminary Blood No Growth after 24 hours Assessment and Plan Plan: Assessment 1 exploratory laparotomy and small bowel resection with the potential of a underlying inflammatory/malignant small bowel lesion/mass. Patient is postop day #1. Currently on IV Zosyn. Hemodynamically stable. Nothing by mouth. Orogastric tube in place. 2 postoperative ventilator dependence. The patient was brought into the intensive care unit intubated on a mechanical ventilator. There was concern of the patient's comorbidities will hinder her ability to wean successfully from the mechanical ventilator and the patient was not extubated in the operating room. Chest x-rays clear and the blood gases are showing a component of respiratory alkalosis. 3 Bronchial asthma, currently inactive in stable 4 dementia, 5 diabetes mellitus, maintained on oral hypoglycemics and the patient will be placed on this a scale coverage for now 6 hyperlipidemia 7 coronary artery disease with previous myocardial infarction 8 seizure disorder many years back and the patient has not been on seizure medication. Her last seizure was back in the 70s., 9 sleep apnea, obstructive sleep apnea with suboptimal compliance to CPAP therapy 10 recent fall with a nasal fracture which has hindered our ability to put in a NG tube is still bowel syndrome 11 chronic anemia 12 peripheral vascular disease 13 diverticulosis, with previous history of bowel resection, colostomy and subsequent reversal. 14 cardiac murmur 15 remote history of DVT 16 bipolar disorder Plan The patient has adequate weaning parameters. The patient will be extubated today to nasal cannula. We'll provide an incentive spirometer. We'll also remove the G-tube and monitor for any abdominal distention, nausea, or emesis. Will not insert an NG tube based on her emesis most fracture that occurred recently. Meanwhile, the patient has been adequately resuscitated. She'll be given a dose of Lasix to improve her urine output. We'll give her 40 mg IV push 1. We will continue the maintenance fluid with an are at the rate of 1 25 mL an hour. We will continue the Zosyn. Sliding scale insulin coverage for blood sugar control. Keep in ICU. Surgical follow-up. Critically care evaluation. More than 30 minutes. Time with Patient: Greater than 30
[2016-12-01] MEDS ORDERED: FUROSEMIDE 10 MG/ML 4 ML VIAL IV STA (09:59)
--- NOTE | 2016-12-01 12:27 | P.PN ---
Subjective Principal diagnosis: Postoperative day one small bowel resection for inflammatory small bowel mass The patient seen on rounds. She's having expected incisional pain. No nausea or vomiting. No NG tube in place. Objective - Vital Signs Vital signs: Vital Signs Temp 99.1 F 12/01/16 08:00 Pulse 70 12/01/16 12:00 Resp 15 12/01/16 12:00 BP 144/72 12/01/16 12:00 Pulse Ox 99 12/01/16 12:00 Intake & Output 11/30/16 12/01/16 12/01/16 18:59 06:59 18:59 Intake Total 525.88 1575 570 Output Total 780 282 40 Balance -254.12 1293 530 Weight 58.967 kg 62.8 kg Intake: IV 525 1475 570 0.9 at KVO 100 70 Lactated Ringers 1,000 ml 125 1375 500 @ 125 mls/hr IV .Q8H [facility] Rx#:[id number] Intake, IV Titration 0.88 100 Amount Piperacillin-Tazobactam 3 100 .375 gm In Dextrose/Water 1 50ml.bag @ 12.5 mls/hr IVPB Q8H [facility] Rx#: [id number] Propofol 500 mg In Empty 0.88 Bag 1 bag @ Titrate IV . Q0M [facility] Rx#:[id number] Output: Gastric Drainage 0 Urine 750 282 40 Uretheral (Casarez) 35 Estimated Blood Loss 30 Other: Voiding Method Indwelling Catheter Indwelling Catheter # Voids 1 # Bowel Movements 1 - Constitutional General appearance: Present: cooperative, no acute distress - Respiratory Respiratory: bilateral: CTA, diminished (Mildly at the base) - Cardiovascular Rhythm: regular - Gastrointestinal General gastrointestinal: Present: decreased bowel sounds, soft Localized gastrointestinal: surgical scar: diffuse (Dressings intact clean and dry) - Labs CBC & Chem 7: 12/01/16 06:24 12/01/16 06:24 Labs: Abnormal Lab Results - Last 24 Hours (Table) 11/30/16 11/30/16 12/01/16 Range/Units 18:50 20:37 06:24 RBC 3.30 L (3.80-5.40) m/uL Hgb 10.0 L D (11.4-16.0) gm/dL Hct 29.2 L (34.0-46.0) % Plt Count 147 L (150-450) k/uL Neutrophils # 8.5 H (1.3-7.7) k/uL Lymphocytes # 0.7 L (1.0-4.8) k/uL ABG pH 7.52 H (7.35-7.45) ABG pCO2 22 L (35-45) mmHg ABG pO2 188 H (83-108) mmHg ABG HCO3 18 L (21-25) mmol/L ABG O2 Saturation 99.8 H (94-97) % Chloride (98-107) mmol/L Glucose (74-99) mg/dL POC Glucose (mg/dL) 110 H (75-99) mg/dL Calcium (8.4-10.2) mg/dL Total Bilirubin (0.2-1.3) mg/dL Alkaline Phosphatase (38-126) U/L Total Protein (6.3-8.2) g/dL Albumin (3.5-5.0) g/dL 12/01/16 Range/Units 06:24 RBC (3.80-5.40) m/uL Hgb (11.4-16.0) gm/dL Hct (34.0-46.0) % Plt Count (150-450) k/uL Neutrophils # (1.3-7.7) k/uL Lymphocytes # (1.0-4.8) k/uL ABG pH (7.35-7.45) ABG pCO2 (35-45) mmHg ABG pO2 (83-108) mmHg ABG HCO3 (21-25) mmol/L ABG O2 Saturation (94-97) % Chloride 108 H (98-107) mmol/L Glucose 130 H (74-99) mg/dL POC Glucose (mg/dL) (75-99) mg/dL Calcium 8.2 L (8.4-10.2) mg/dL Total Bilirubin 1.4 H (0.2-1.3) mg/dL Alkaline Phosphatase 131 H (38-126) U/L Total Protein 5.1 L (6.3-8.2) g/dL Albumin 2.6 L (3.5-5.0) g/dL Microbiology - Last 24 Hours (Table) 11/29/16 16:17 Urine Culture - Final Urine,Catheterized 11/29/16 15:45 Blood Culture - Preliminary Blood No Growth after 24 hours Assessment and Plan (1) Small bowel mass Status: Acute Plan: Continue medical care. We'll start her on some ice chips and popsicles.
[2016-12-01 12:57] LABS: Glucose,Whole Blood 111 mg/dL (75-99)
--- NOTE | 2016-12-01 15:37 | P.HPIM ---
History of Present Illness H&P Date: 11/30/16 66-year-old female patient, given her complaints of severe abdominal pain in the left upper and lower quadrant and on the CAT scan found to have ischemia and infarction are abscess of the small bowel . Patient is scheduled to undergo expected laparotomy and patient was started on Zosyn patient is still complaining of severe 10 blade and sharp abdominal pain diffuse denied any nausea vomiting diarrhea. Review of Systems REVIEW OF SYSTEMS: CONSTITUTIONAL: No fever, no malaise, no fatigue. HEENT: No recent visual problems or hearing problems. Denied any sore throat. CARDIOVASCULAR: No chest pain, orthopnea, PND, no palpitations, no syncope. PULMONARY: No shortness of breath, no cough, no hemoptysis. GASTROINTESTINAL: As described in HPI NEUROLOGICAL: No headaches, no weakness, no numbness. HEMATOLOGICAL: Denies any bleeding or petechiae. GENITOURINARY: Denies any burning micturition, frequency, or urgency. MUSCULOSKELETAL/RHEUMATOLOGICAL: Denies any joint pain, swelling, or any muscle pain. ENDOCRINE: Denies any polyuria or polydipsia. The rest of the 14-point review of systems is negative. Past Medical History Past Medical History: Asthma, Coronary Artery Disease (CAD), Heart Failure, Dementia, Diabetes Mellitus, Deep Vein Thrombosis (DVT), GERD/Reflux, Hyperlipidemia, Myocardial Infarction (VA), Osteoarthritis (OA), Pneumonia, Renal Disease, Seizure Disorder, Sleep Apnea/CPAP/BIPAP, Vascular Disorder Additional Past Medical History / Comment(s): Bronchial asthma, dementia, diabetes mellitus, hyperlipidemia, coronary artery disease with previous myocardial infarction, seizure disorder many years back and the patient has not been on seizure medication. Her last seizure was back in the 70s., sleep apnea , obstructive sleep apnea with suboptimal compliance to CPAP therapy, recent fall with a nasal fracture which has hindered our ability to put in a NG tube is still bowel syndrome, TMJ, chronic anemia, peripheral vascular disease, diverticulosis, cardiac murmur, remote history of DVT, diabetes mellitus, bipolar disorder Last Myocardial Infarction Date:: 1991 History of Any Multi-Drug Resistant Organisms: None Reported Past Surgical History: Adenoidectomy, Appendectomy, Bowel Resection, Cholecystectomy, Hernia Repair, Hysterectomy, Joint Replacement, Orthopedic Surgery, Tonsillectomy Additional Past Surgical History / Comment(s): partial colon resection with colostomy then reversal, SILVERIO KNEE ARTHROSCOPY,Right KNEE REPLACEMENT, EGDs and colonoscopies, lipomas off back, cyst off spine, eye duct surgery Past Anesthesia/Blood Transfusion Reactions: Previous Problems w/ Anesthesia, Motion Sickness Additional Past Anesthesia/Blood Transfusion Reaction / Comment(s): DIFFICULTY WAKING UP. CLAUSTERPHOBIC Past Psychological History: Anxiety, Bipolar Additional Psychological History / Comment(s): DYSLEXIA but is able to read and write with some difficulty. Pt resides with her sisters, Reny who is also her legal guardian and other sister Michelle. They are her caretakers. Pt uses a walker to ambulate. She does not drive, Michelle takes her to [employer]. pt also has dementia and is deaf Smoking Status: Never smoker Past Alcohol Use History: None Reported Past Drug Use History: None Reported - Past Family History Father Family Medical History: Cancer Additional Family Medical History / Comment(s): Father had lung cancer. Mother Family Medical History: Congestive Heart Failure (CHF), Dementia, Myocardial Infarction (VA) Medications and Allergies Home Medications Medication Instructions Recorded Confirmed Type Albuterol Sulfate [Proair Hfa] 2 puff INHALATION RT-QID PRN 06/24/14 11/29/16 History Donepezil [Aricept] 10 mg PO DAILY 02/07/15 11/29/16 History Loratadine 10 mg PO QAM 06/28/16 11/29/16 History Montelukast Sodium [Singulair] 10 mg PO DAILY 06/28/16 11/29/16 History Omeprazole [PriLOSEC] 20 mg PO HS 06/28/16 11/29/16 History Memantine HCl [Namenda Xr] 28 mg PO DAILY 07/15/16 11/29/16 History risperiDONE [RisperDAL] 1 mg PO HS 08/16/16 11/29/16 History Famotidine [Pepcid] 20 mg PO DAILY 09/03/16 11/29/16 History glipiZIDE [Glucotrol] 5 mg PO DAILY 09/03/16 11/29/16 History Sertraline [Zoloft] 50 mg PO QAM 11/22/16 11/29/16 History traMADol HCL [Ultram] 50 mg PO BID PRN 11/22/16 11/29/16 History Mirtazapine 7.5 mg PO HS 11/29/16 11/29/16 History Allergies Allergy/AdvReac Type Severity Reaction Status Date / Time codeine Allergy Rash/Hives Verified 11/22/16 18:56 lorazepam [From Ativan] Allergy Rash/Hives Verified 11/22/16 18:56 oxaprozin [From Daypro] Allergy Rash/Hives Verified 11/22/16 18:56 Sulfa (Sulfonamide Allergy Rash/Hives Verified 11/22/16 18:56 Antibiotics) baclofen AdvReac Unknown Psychotic Verified 11/29/16 15:45 Episode cyclobenzaprine HCl AdvReac Confusion Verified 11/22/16 18:56 [From Flexeril] Physical Exam Vitals: Vital Signs Temp Pulse Pulse Resp BP BP Pulse Ox 12/01/16 14:00 72 19 132/69 100 12/01/16 13:00 88 18 110/59 99 12/01/16 12:00 70 78 18 144/72 99 12/01/16 11:00 70 15 124/58 99 12/01/16 10:00 85 27 H 132/65 98 12/01/16 09:00 68 11 L 119/70 100 12/01/16 08:00 99.1 F 69 78 18 114/56 99 12/01/16 07:00 69 11 L 105/48 100 12/01/16 06:00 75 13 105/58 100 12/01/16 05:00 74 14 134/72 100 12/01/16 04:00 73 11 L 124/59 100 12/01/16 03:00 74 12 118/57 100 12/01/16 02:00 94 20 119/56 99 12/01/16 01:00 69 10 L 133/58 100 12/01/16 00:00 76 27 H 140/62 11/30/16 23:32 99.8 F H 78 18 140/62 11/30/16 23:00 78 19 131/67 99 11/30/16 22:00 90 13 125/60 99 11/30/16 21:30 88 24 127/67 99 11/30/16 21:00 75 13 119/67 100 11/30/16 20:30 81 28 H 122/64 96 11/30/16 20:00 98.8 F 83 126/65 100 11/30/16 19:30 73 110/51 100 11/30/16 19:25 78 12 126/65 100 11/30/16 19:15 75 12 135/53 100 11/30/16 19:00 80 12 132/65 100 11/30/16 18:45 76 12 139/53 99 11/30/16 18:30 91 12 145/70 100 11/30/16 18:15 94 12 153/66 100 11/30/16 18:12 98 F 80 12 153/66 100 Intake and Output 12/01/16 12/01/16 12/01/16 06:59 14:59 22:59 Intake Total 1130 1150 145 Output Total 115 2490 350 Balance 1015 -5110 -205 Intake: IV 1080 1150 145 0.9 at KVO 80 150 20 Lactated Ringers 1,000 ml 1000 1000 125 @ 125 mls/hr IV .Q8H [facility] Rx#:[id number] Intake, IV Titration 50 Amount Piperacillin-Tazobactam 3 50 .375 gm In Dextrose/Water 1 50ml.bag @ 12.5 mls/hr IVPB Q8H [facility] Rx#: [id number] Output: Urine 115 2490 350 Other: Voiding Method Indwelling Catheter Indwelling Catheter # Voids 1 # Bowel Movements 0 Weight 62.8 kg 62.8 kg Patient Weight 12/02/16 06:59 Weight 62.8 kg PHYSICAL EXAMINATION: GENERAL: The patient is alert and oriented x3, not in any acute distress. Well developed, well nourished. HEENT: Pupils are round and equally reacting to light. EOMI. No scleral icterus. No conjunctival pallor. Normocephalic, atraumatic. No pharyngeal erythema. No thyromegaly. CARDIOVASCULAR: S1 and S2 present. No murmurs, rubs, or gallops. PULMONARY: Chest is clear to auscultation, no wheezing or crackles. ABDOMEN: Patient does have tenderness mostly in the right lower quadrant and does have some diffuse tenderness as well along with some rebound and no rigidity nondistended, normoactive bowel sounds. No palpable organomegaly. MUSCULOSKELETAL: No joint swelling or deformity. EXTREMITIES: No cyanosis, clubbing, or pedal edema. NEUROLOGICAL: Gross neurological examination did not reveal any focal deficits. SKIN: No rashes. Results CBC & Chem 7: 12/01/16 06:24 12/01/16 06:24 Labs: Abnormal Lab Results - Last 24 Hours (Table) 11/30/16 11/30/16 12/01/16 Range/Units 18:50 20:37 06:24 RBC 3.30 L (3.80-5.40) m/uL Hgb 10.0 L D (11.4-16.0) gm/dL Hct 29.2 L (34.0-46.0) % Plt Count 147 L (150-450) k/uL Neutrophils # 8.5 H (1.3-7.7) k/uL Lymphocytes # 0.7 L (1.0-4.8) k/uL ABG pH 7.52 H (7.35-7.45) ABG pCO2 22 L (35-45) mmHg ABG pO2 188 H (83-108) mmHg ABG HCO3 18 L (21-25) mmol/L ABG O2 Saturation 99.8 H (94-97) % Chloride (98-107) mmol/L Glucose (74-99) mg/dL POC Glucose (mg/dL) 110 H (75-99) mg/dL Calcium (8.4-10.2) mg/dL Total Bilirubin (0.2-1.3) mg/dL Alkaline Phosphatase (38-126) U/L Total Protein (6.3-8.2) g/dL Albumin (3.5-5.0) g/dL 12/01/16 12/01/16 Range/Units 06:24 12:55 RBC (3.80-5.40) m/uL Hgb (11.4-16.0) gm/dL Hct (34.0-46.0) % Plt Count (150-450) k/uL Neutrophils # (1.3-7.7) k/uL Lymphocytes # (1.0-4.8) k/uL ABG pH (7.35-7.45) ABG pCO2 (35-45) mmHg ABG pO2 (83-108) mmHg ABG HCO3 (21-25) mmol/L ABG O2 Saturation (94-97) % Chloride 108 H (98-107) mmol/L Glucose 130 H (74-99) mg/dL POC Glucose (mg/dL) 111 H (75-99) mg/dL Calcium 8.2 L (8.4-10.2) mg/dL Total Bilirubin 1.4 H (0.2-1.3) mg/dL Alkaline Phosphatase 131 H (38-126) U/L Total Protein 5.1 L (6.3-8.2) g/dL Albumin 2.6 L (3.5-5.0) g/dL Microbiology - Last 24 Hours (Table) 11/29/16 16:17 Urine Culture - Final Urine,Catheterized 11/29/16 15:45 Blood Culture - Preliminary Blood No Growth after 24 hours Thrombosis Risk Factor Assmnt - Choose All That Apply Each Risk Factor Represents 2 Points: Age 61-74 years Thrombosis Risk Factor Assessment Total Risk Factor Score: 2 Thrombosis Risk Factor Assessment Level: Low Risk Assessment and Plan Plan: 1 abdominal pain: Secondary to small wall ischemia or infarction and an abscess.. 2 Bronchial asthma, no acute exacerbation 3 dementia: Patient has diagnosed of also was dementia 4 diabetes mellitus, oral hypoglycemic agents were discontinued and patient will be started on subcutaneous insulin insulin 5 hyperlipidemia 6 coronary artery disease with previous myocardial infarction 7 seizure disorder many years back and the patient has not been on seizure medication. Her last seizure was back in the 70s., 8 sleep apnea, obstructive sleep apnea with suboptimal compliance to CPAP therapy 9 chronic anemia: Further evaluation as an outpatient 10 peripheral vascular disease 11 remote history of DVT 12 bipolar disorder
--- NOTE | 2016-12-01 15:40 | P.PN ---
Subjective Patient is status post partial small bowel resection and status post extubation postoperative respiratory failure. Patient is still having soreness feeling much better surgical site area appears to be clean. REVIEW OF SYSTEMS: CARDIOVASCULAR: No chest pain, no orthopnea, no PND, no palpitations. PULMONARY: Denied any shortness of breath. No cough or hemoptysis. GASTROINTESTINAL: As mentioned above. NEUROLOGIC: No headaches, no weakness, no numbness. Objective - Vital Signs Vital signs: Vital Signs Temp 99.1 F 12/01/16 08:00 Pulse 68 12/01/16 15:00 Resp 14 12/01/16 15:00 BP 120/64 12/01/16 15:00 Pulse Ox 99 12/01/16 15:00 Intake & Output 11/30/16 12/01/16 12/01/16 18:59 06:59 18:59 Intake Total 525.88 1575 1295 Output Total 661 989 4929 Balance -254.12 1293 -1545 Weight 58.967 kg 62.8 kg 62.8 kg Intake: IV 525 1475 1295 0.9 at KVO 100 170 Lactated Ringers 1,000 ml 125 1375 1125 @ 125 mls/hr IV .Q8H [facility] Rx#:[id number] Intake, IV Titration 0.88 100 Amount Piperacillin-Tazobactam 3 100 .375 gm In Dextrose/Water 1 50ml.bag @ 12.5 mls/hr IVPB Q8H [facility] Rx#: [id number] Propofol 500 mg In Empty 0.88 Bag 1 bag @ Titrate IV . Q0M [facility] Rx#:[id number] Output: Gastric Drainage 0 Urine 364 875 8232 Uretheral (Casarez) 35 Estimated Blood Loss 30 Other: Voiding Method Indwelling Catheter Indwelling Catheter Indwelling Catheter # Voids 1 1 # Bowel Movements 1 0 - Exam PHYSICAL EXAMINATION: GENERAL: The patient is alert and oriented x3, not in any acute distress. Well developed, well nourished. HEENT: Pupils are round and equally reacting to light. EOMI. No scleral icterus. No conjunctival pallor. Normocephalic, atraumatic. No pharyngeal erythema. No thyromegaly. CARDIOVASCULAR: S1 and S2 present. No murmurs, rubs, or gallops. PULMONARY: Chest is clear to auscultation, no wheezing or crackles. ABDOMEN: Patient does have tenderness mostly in the right lower quadrant and does have some diffuse tenderness as well along with some rebound and no rigidity nondistended, normoactive bowel sounds. No palpable organomegaly. MUSCULOSKELETAL: No joint swelling or deformity. EXTREMITIES: No cyanosis, clubbing, or pedal edema. NEUROLOGICAL: Gross neurological examination did not reveal any focal deficits. SKIN: No rashes. - Labs CBC & Chem 7: 12/01/16 06:24 12/01/16 06:24 Labs: Abnormal Lab Results - Last 24 Hours (Table) 11/30/16 11/30/16 12/01/16 Range/Units 18:50 20:37 06:24 RBC 3.30 L (3.80-5.40) m/uL Hgb 10.0 L D (11.4-16.0) gm/dL Hct 29.2 L (34.0-46.0) % Plt Count 147 L (150-450) k/uL Neutrophils # 8.5 H (1.3-7.7) k/uL Lymphocytes # 0.7 L (1.0-4.8) k/uL ABG pH 7.52 H (7.35-7.45) ABG pCO2 22 L (35-45) mmHg ABG pO2 188 H (83-108) mmHg ABG HCO3 18 L (21-25) mmol/L ABG O2 Saturation 99.8 H (94-97) % Chloride (98-107) mmol/L Glucose (74-99) mg/dL POC Glucose (mg/dL) 110 H (75-99) mg/dL Calcium (8.4-10.2) mg/dL Total Bilirubin (0.2-1.3) mg/dL Alkaline Phosphatase (38-126) U/L Total Protein (6.3-8.2) g/dL Albumin (3.5-5.0) g/dL 12/01/16 12/01/16 Range/Units 06:24 12:55 RBC (3.80-5.40) m/uL Hgb (11.4-16.0) gm/dL Hct (34.0-46.0) % Plt Count (150-450) k/uL Neutrophils # (1.3-7.7) k/uL Lymphocytes # (1.0-4.8) k/uL ABG pH (7.35-7.45) ABG pCO2 (35-45) mmHg ABG pO2 (83-108) mmHg ABG HCO3 (21-25) mmol/L ABG O2 Saturation (94-97) % Chloride 108 H (98-107) mmol/L Glucose 130 H (74-99) mg/dL POC Glucose (mg/dL) 111 H (75-99) mg/dL Calcium 8.2 L (8.4-10.2) mg/dL Total Bilirubin 1.4 H (0.2-1.3) mg/dL Alkaline Phosphatase 131 H (38-126) U/L Total Protein 5.1 L (6.3-8.2) g/dL Albumin 2.6 L (3.5-5.0) g/dL Microbiology - Last 24 Hours (Table) 11/29/16 16:17 Urine Culture - Final Urine,Catheterized 11/29/16 15:45 Blood Culture - Preliminary Blood No Growth after 24 hours Assessment and Plan Plan: 1 abdominal pain: Secondary to small bowel infarction, status post laparotomy and partial small bowel resection. Patient is on Zosyn patient is extubated at this point of time. 2 Bronchial asthma, no acute exacerbation 3 dementia: Patient has diagnosed of also was dementia 4 diabetes mellitus, oral hypoglycemic agents were discontinued and patient will be started on subcutaneous insulin insulin 5 hyperlipidemia 6 coronary artery disease with previous myocardial infarction 7 seizure disorder many years back and the patient has not been on seizure medication. Her last seizure was back in the 70s., 8 sleep apnea, obstructive sleep apnea with suboptimal compliance to CPAP therapy 9 chronic anemia: Further evaluation as an outpatient 10 peripheral vascular disease 11 remote history of DVT 12 bipolar disorder
[2016-12-01] MEDS: LACTATED RINGERS 1,000 ML IV ONE (18:13)
[2016-12-01] MEDS: LACTATED RINGERS 1,000 ML IV SCH (20:08)
[2016-12-01] MEDS: MIRTAZAPINE 15 MG TAB PO SCH (20:09)
[2016-12-01] MEDS: risperiDONE 1 MG TAB PO SCH (20:10)
[2016-12-01 21:07] LABS: Glucose,Whole Blood 105 mg/dL (75-99)
[2016-12-01 21:30] LABS: Magnesium 1.7 mg/dL (1.6-2.3); Potassium 3.3 mmol/L (3.5-5.1)
[2016-12-01] MEDS ORDERED: POTASSIUM CHLORIDE 20 MEQ in WATER FOR INJECTION 1 100ML.BAG IVPB ONE (22:30)
[2016-12-01] MEDS: MAGNESIUM SULFATE-D5W PMX 1 GM in DEXTROSE/WATER 1 100ML.BAG IVPB SCH ×2 (22:41→23:59)
[2016-12-01] MEDS: POTASSIUM CHLORIDE 10 MEQ, LIDOCAINE 2% INJ 10 MG in SODIUM CHLORIDE 0.9% 100 ML IV SCH (23:22)
[2016-12-02] MEDS: HEPARIN SODIUM,PORCINE 5,000 UNIT/ML 1 ML VIAL SQ SCH ×4 (00:02→23:33)
[2016-12-02] MEDS: KETOROLAC 30 MG/ML 1 ML VIAL IVP SCH ×3 (00:12→13:42)
[2016-12-02] MEDS: POTASSIUM CHLORIDE 10 MEQ, LIDOCAINE 2% INJ 10 MG in SODIUM CHLORIDE 0.9% 100 ML IV SCH (00:22)
[2016-12-02] MEDS: PIPERACILLIN-TAZOBACTAM 3.375 GM in DEXTROSE/WATER 1 50ML.BAG IVPB SCH ×3 (03:27→20:10)
[2016-12-02 06:08] LABS: Basophils % (A) 0 %; CH 29.5; CHCM 34.7; Eosinophils # (A) 0.3 k/uL (0-0.7); Eosinophils % (A) 4 %; HCT 31.1 % (34.0-46.0); HDW 2.58; HGB 11.1 gm/dL (11.4-16.0); Luc # (Auto) 0.13; Luc % (Auto) 2; Lymphocytes # (A) 1.5 k/uL (1.0-4.8); Lymphocytes % (A) 19 %; MCH 30.5 pg (25.0-35.0); MCHC 35.8 g/dL (31.0-37.0); MCV 85.2 fL (80.0-100.0); Mean Platelet Volume 8.4; Monocytes # (A) 0.6 k/uL (0-1.0); Monocytes % (A) 8 %; Neutrophils # (A) 5.6 k/uL (1.3-7.7); Neutrophils % (A) 68 %; RBC 3.65 m/uL (3.80-5.40); RDW 12.3 % (11.5-15.5); WBC 8.2 k/uL (3.8-10.6); WBC (Perox) 8.47
[2016-12-02 06:20] LABS: Anion Gap 11 mmol/L; Blood Urea Nitrogen 11 mg/dL (7-17); Calcium 8.6 mg/dL (8.4-10.2); Carbon Dioxide 24 mmol/L (22-30); Chloride 107 mmol/L (98-107); Glucose 100 mg/dL (74-99); Magnesium 2.4 mg/dL (1.6-2.3); Non-African American GFR(MDRD) >60 (>60 ml/min/1.73 sqM); Phosphorous 3.3 mg/dL (2.5-4.5); Potassium 4.8 mmol/L (3.5-5.1); Sodium 142 mmol/L (137-145)
[2016-12-02 07:47] LABS: Glucose,Whole Blood 93 mg/dL (75-99)
[2016-12-02] MEDS: INSULIN LISPRO (humaLOG) 300 UNIT/3 ML VIAL SQ SCH ×4 (08:23→21:44)
[2016-12-02] MEDS: PANTOPRAZOLE 40 MG/10 ML VIAL IVP SCH (08:28)
[2016-12-02] MEDS: CHLORHEXIDINE GLUCONATE 15 ML CUP MUCOUS MEM SCH ×2 (08:28→20:15)
[2016-12-02] MEDS: MONTELUKAST 10 MG TAB PO SCH (08:29)
[2016-12-02] MEDS: DONEPEZIL 10 MG TAB PO SCH (08:29)
[2016-12-02] MEDS: SERTRALINE 50 MG TAB PO SCH (08:29)
--- NOTE | 2016-12-02 10:55 | P.PN ---
Subjective 66-year-old female patient, presented to the hospital because of abdominal pain. Pain was mainly in the left upper quadrant. She had a CAT scan of the abdomen that was done in the emergency department and the CAT scan showed left upper quadrant Jujenal process consistent with bowel infarction versus abscess. The other possibilities within the differential diagnosis included bowel ischemia/infarct/foreign body/small bowel lymphoma. Based on all this the patient was taken to the operating room and exploration was done with small bowel was run fluid Treitz and in the left upper quadrant there was a small bowel inflammatory mass. There appeared to be extension of the mass into the mesentery. The mass appeared to be inflamed. At this point a limited small bowel resection was performed by dividing the small bowel proximally distally to the mass using the linear cutter stapler. A [id number] functional end-to- end staple anastomosis created . Postop, the patient was brought into the intensive care unit intubated on a mechanical ventilator. At this point in time , the patient sedated with Diprivan which is running at 10 mics. She is an assist-control mode of ventilation at the rate of 12, tidal volume 450, FiO2 of 50% and PEEP of 5. Chest x-ray shows adequate expansion of both lungs and ET tube is in a good location and the OG tube is also elevated location. Had blood gases that showed a component of acute respiratory alkalosis with a pH of 7.52 and a pCO2 of 22 and pO2 188. Hemodynamically she is stable. She is on a solution at the rate of 1 25 mL an hour. The patient is also on IV Zosyn. She is easily arousable. She is gently sedated for now. She has an adequate urine output. No discomfort. She is on subcu heparin for DVT prophylaxis. She is also on Protonix for GI prophylaxis. On 12/01/2016 the patient is being seen in follow-up. This morning she is awake and alert. Overnight she received a total of 3 L of IV fluid. Urine output remains low at around 10 mL an hour. She is however awake and alert and she is following commands and responding appropriately. She has good weaning parameters. Her chest x-ray is also clear. ET tube is in a good location. No significant atelectatic changes in lung bases bilaterally. No pneumonia. No airspace disease. The OG tube is also in place and output has been minimal since she came from the operating room. Abdomen is nondistended. Surgical wound site is dry clean and intact. No abdominal distention. No abdominal pain. No significant edema in her upper and lower extremities. She is afebrile. She is on IV Zosyn. She is on DVT and GI prophylaxis. On 2016 the patient is being seen in follow-up. The patient was extubated yesterday without a major difficulties. The patient is doing well. Awake and alert and communicating. No abdominal distention. No nausea. No vomiting. The surgical wound site is dry clean and intact. She was placed on a clear liquid diet. She has bowel activity and she is passing flatus. Electrolytes are all within normal limits. Potassium level was replaced yesterday. Hemoglobin stable at 11.1. No leukocytosis. She is using the incentive spirometer. Objective - Vital Signs Vital signs: Vital Signs Temp 97.6 F 12/02/16 08:00 Pulse 69 12/02/16 09:00 Resp 16 12/02/16 09:00 BP 126/73 12/02/16 09:00 Pulse Ox 95 12/02/16 09:00 Intake & Output 12/01/16 12/02/16 12/02/16 18:59 06:59 18:59 Intake Total 1730 1055 120 Output Total 3640 1260 75 Balance -1910 -205 45 Weight 62.8 kg 62.3 kg Intake: IV 1730 505 20 0.9 at KVO 230 80 20 Lactated Ringers 1,000 ml 1500 225 @ 125 mls/hr IV .Q8H [facility] Rx#:[id number] Magnesium Sulfate-D5w Pmx 200 1 gm In Dextrose/Water 1 100ml.bag @ 100 mls/hr IVPB Q1H [facility] Rx#: [id number] Intake, IV Titration 550 100 Amount Lactated Ringers 1,000 ml 250 100 @ 50 mls/hr IV .Q20H [facility] Rx#:[id number] Piperacillin-Tazobactam 3 100 .375 gm In Dextrose/Water 1 50ml.bag @ 12.5 mls/hr IVPB Q8H [facility] Rx#: [id number] Potassium Chloride 10 meq 200 Lidocaine 2% Inj 10 mg In Sodium Chloride 0.9% 100 ml @ 100 mls/hr IV Q1HR [facility] Rx#:[id number] Output: Urine 3640 1260 75 Other: Voiding Method Indwelling Catheter Indwelling Catheter Indwelling Catheter # Voids 1 # Bowel Movements 0 0 - Exam Head exam was generally normal. Neck was supple and without jugular venous distension, thyromegaly, or carotid bruits. Carotids were easily palpable bilaterally. There was no adenopathy. Lung sounds are diminished otherwise clear. Heart sounds are regular, positive S1-S2, systolic ejection murmur grade 2/6 heard throughout the precordium,Abdominal exam revealed was soft, non -tender, and without masses, organomegaly, or appreciable enlargement of the abdominal aorta. The bowel sounds are hypoactive and the surgical wound site is clean at this point over the anterior abdominal wall.Examination of the extremities revealed easily palpable radial, femoral and pedal pulses. There was no cyanosis, clubbing or edema. - Labs CBC & Chem 7: 12/02/16 05:35 12/02/16 05:35 Labs: Abnormal Lab Results - Last 24 Hours (Table) 12/01/16 12/01/16 12/01/16 Range/Units 12:55 21:02 21:05 RBC (3.80-5.40) m/uL Hgb (11.4-16.0) gm/dL Hct (34.0-46.0) % Plt Count (150-450) k/uL Potassium 3.3 L (3.5-5.1) mmol/L Glucose (74-99) mg/dL POC Glucose (mg/dL) 111 H 105 H (75-99) mg/dL Magnesium (1.6-2.3) mg/dL 12/02/16 12/02/16 Range/Units 05:35 05:35 RBC 3.65 L (3.80-5.40) m/uL Hgb 11.1 L (11.4-16.0) gm/dL Hct 31.1 L (34.0-46.0) % Plt Count 137 L (150-450) k/uL Potassium (3.5-5.1) mmol/L Glucose 100 H (74-99) mg/dL POC Glucose (mg/dL) (75-99) mg/dL Magnesium 2.4 H (1.6-2.3) mg/dL Microbiology - Last 24 Hours (Table) 11/29/16 15:45 Blood Culture - Preliminary Blood No Growth after 48 hours Assessment and Plan Plan: Assessment 1 exploratory laparotomy and small bowel resection with the potential of a underlying inflammatory/malignant small bowel lesion/mass. Patient is postop day #2. Currently on IV Zosyn. Hemodynamically stable. 2 postoperative ventilator dependence, extubated without any major difficulties 3 Bronchial asthma, currently inactive in stable 4 dementia, 5 diabetes mellitus, maintained on oral hypoglycemics and the patient will be placed on this a scale coverage for now 6 hyperlipidemia 7 coronary artery disease with previous myocardial infarction 8 seizure disorder many years back and the patient has not been on seizure medication. Her last seizure was back in the 70s., 9 sleep apnea, obstructive sleep apnea with suboptimal compliance to CPAP therapy 10 recent fall with a nasal fracture 11 chronic anemia 12 peripheral vascular disease 13 diverticulosis, with previous history of bowel resection, colostomy and subsequent reversal. 14 cardiac murmur 15 remote history of DVT 16 bipolar disorder Plan Doing well. We'll provide the patient incentive spirometer. We'll encourage. The patient has not ambulated yet. We'll try to do that if possible today. Pain is under good control. Advance diet as tolerated. She came be transferred to a medical surgical floor.
--- NOTE | 2016-12-02 11:10 | P.PN ---
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 She is not having any nausea or vomiting. Tolerating ice chips. Pain is well-controlled Objective - Vital Signs Vital signs: Vital Signs Temp 97.6 F 12/02/16 08:00 Pulse 69 12/02/16 09:00 Resp 16 12/02/16 09:00 BP 126/73 12/02/16 09:00 Pulse Ox 95 12/02/16 09:00 Intake & Output 12/01/16 12/02/16 12/02/16 18:59 06:59 18:59 Intake Total 1730 1055 120 Output Total 3640 1260 75 Balance -1910 - 45 Weight 62.8 kg 62.3 kg Intake: IV 1730 505 20 0.9 at KVO 230 80 20 Lactated Ringers 1,000 ml 1500 225 @ 125 mls/hr IV .Q8H [facility] Rx#:[id number] Magnesium Sulfate-D5w Pmx 200 1 gm In Dextrose/Water 1 100ml.bag @ 100 mls/hr IVPB Q1H [facility] Rx#: [id number] Intake, IV Titration 550 100 Amount Lactated Ringers 1,000 ml 250 100 @ 50 mls/hr IV .Q20H [facility] Rx#:[id number] Piperacillin-Tazobactam 3 100 .375 gm In Dextrose/Water 1 50ml.bag @ 12.5 mls/hr IVPB Q8H [facility] Rx#: [id number] Potassium Chloride 10 meq 200 Lidocaine 2% Inj 10 mg In Sodium Chloride 0.9% 100 ml @ 100 mls/hr IV Q1HR [facility] Rx#:[id number] Output: Urine 3640 1260 75 Other: Voiding Method Indwelling Catheter Indwelling Catheter Indwelling Catheter # Voids 1 # Bowel Movements 0 0 - Constitutional General appearance: Present: cooperative, no acute distress - Gastrointestinal General gastrointestinal: Present: normal bowel sounds (I'll incisional), soft, tenderness Localized gastrointestinal: surgical scar: diffuse (Resting Zantac with some old dried blood) - Labs CBC & Chem 7: 12/02/16 05:35 12/02/16 05:35 Labs: Abnormal Lab Results - Last 24 Hours (Table) 12/01/16 12/01/16 12/01/16 Range/Units 12:55 21:02 21:05 RBC (3.80-5.40) m/uL Hgb (11.4-16.0) gm/dL Hct (34.0-46.0) % Plt Count (150-450) k/uL Potassium 3.3 L (3.5-5.1) mmol/L Glucose (74-99) mg/dL POC Glucose (mg/dL) 111 H 105 H (75-99) mg/dL Magnesium (1.6-2.3) mg/dL 12/02/16 12/02/16 Range/Units 05:35 05:35 RBC 3.65 L (3.80-5.40) m/uL Hgb 11.1 L (11.4-16.0) gm/dL Hct 31.1 L (34.0-46.0) % Plt Count 137 L (150-450) k/uL Potassium (3.5-5.1) mmol/L Glucose 100 H (74-99) mg/dL POC Glucose (mg/dL) (75-99) mg/dL Magnesium 2.4 H (1.6-2.3) mg/dL Microbiology - Last 24 Hours (Table) 11/29/16 15:45 Blood Culture - Preliminary Blood No Growth after 48 hours Assessment and Plan (1) Small bowel mass Status: Acute Plan: We'll start her on clear liquids. She surgically stable for transfer to the floor. Progressing slowly.
[2016-12-02] MEDS: LORATADINE 10 MG TAB PO SCH (13:42)
[2016-12-02] MEDS: MEMANTINE 10 MG TAB PO SCH ×2 (13:42→20:13)
--- NOTE | 2016-12-02 14:58 | P.PN ---
Subjective Patient is status post partial small bowel resection and status post extubation postoperative respiratory failure. Patient is still having soreness feeling much better surgical site area appears to be clean. Patient will transfer out of ICU REVIEW OF SYSTEMS: CARDIOVASCULAR: No chest pain, no orthopnea, no PND, no palpitations. PULMONARY: Denied any shortness of breath. No cough or hemoptysis. GASTROINTESTINAL: As mentioned above. NEUROLOGIC: No headaches, no weakness, no numbness. Objective - Vital Signs Vital signs: Vital Signs Temp 97.6 F 12/02/16 08:00 Pulse 69 12/02/16 09:00 Resp 16 12/02/16 09:00 BP 126/73 12/02/16 09:00 Pulse Ox 95 12/02/16 09:00 Intake & Output 12/01/16 12/02/16 12/02/16 18:59 06:59 18:59 Intake Total 1730 1055 1000 Output Total 3640 1260 75 Balance -1910 -205 925 Weight 62.8 kg 62.3 kg Intake: IV 1730 505 20 0.9 at KVO 230 80 20 Lactated Ringers 1,000 ml 1500 225 @ 125 mls/hr IV .Q8H [facility] Rx#:[id number] Magnesium Sulfate-D5w Pmx 200 1 gm In Dextrose/Water 1 100ml.bag @ 100 mls/hr IVPB Q1H [facility] Rx#: [id number] Intake, IV Titration 550 500 Amount Lactated Ringers 1,000 ml 250 450 @ 50 mls/hr IV .Q20H [facility] Rx#:[id number] Piperacillin-Tazobactam 3 100 50 .375 gm In Dextrose/Water 1 50ml.bag @ 12.5 mls/hr IVPB Q8H [facility] Rx#: [id number] Potassium Chloride 10 meq 200 Lidocaine 2% Inj 10 mg In Sodium Chloride 0.9% 100 ml @ 100 mls/hr IV Q1HR [facility] Rx#:[id number] Oral 480 Output: Urine 3640 1260 75 Other: Voiding Method Indwelling Catheter Indwelling Catheter Indwelling Catheter # Voids 1 # Bowel Movements 0 0 - Exam GENERAL: The patient is alert and oriented x3, not in any acute distress. Well developed, well nourished. HEENT: Pupils are round and equally reacting to light. EOMI. No scleral icterus. No conjunctival pallor. Normocephalic, atraumatic. No pharyngeal erythema. No thyromegaly. CARDIOVASCULAR: S1 and S2 present. No murmurs, rubs, or gallops. PULMONARY: Chest is clear to auscultation, no wheezing or crackles. ABDOMEN: Patient does have tenderness mostly in the right lower quadrant and does have some diffuse tenderness as well along with some rebound and no rigidity nondistended, normoactive bowel sounds. No palpable organomegaly. MUSCULOSKELETAL: No joint swelling or deformity. EXTREMITIES: No cyanosis, clubbing, or pedal edema. NEUROLOGICAL: Gross neurological examination did not reveal any focal deficits. SKIN: No rashes. - Labs CBC & Chem 7: 12/02/16 05:35 12/02/16 05:35 Labs: Abnormal Lab Results - Last 24 Hours (Table) 12/01/16 12/01/16 12/02/16 Range/Units 21:02 21:05 05:35 RBC (3.80-5.40) m/uL Hgb (11.4-16.0) gm/dL Hct (34.0-46.0) % Plt Count (150-450) k/uL Potassium 3.3 L (3.5-5.1) mmol/L Glucose 100 H (74-99) mg/dL POC Glucose (mg/dL) 105 H (75-99) mg/dL Magnesium 2.4 H (1.6-2.3) mg/dL 12/02/16 Range/Units 05:35 RBC 3.65 L (3.80-5.40) m/uL Hgb 11.1 L (11.4-16.0) gm/dL Hct 31.1 L (34.0-46.0) % Plt Count 137 L (150-450) k/uL Potassium (3.5-5.1) mmol/L Glucose (74-99) mg/dL POC Glucose (mg/dL) (75-99) mg/dL Magnesium (1.6-2.3) mg/dL Microbiology - Last 24 Hours (Table) 11/29/16 15:45 Blood Culture - Preliminary Blood No Growth after 48 hours Assessment and Plan Plan: 1 abdominal pain: Secondary to small bowel infarction, status post laparotomy and partial small bowel resection. Patient is on Zosyn patient is extubated at this point of time. 2 Bronchial asthma, no acute exacerbation 3 dementia: Patient has diagnosed of also was dementia 4 diabetes mellitus, oral hypoglycemic agents were discontinued and patient will be started on subcutaneous insulin insulin 5 hyperlipidemia 6 coronary artery disease with previous myocardial infarction 7 seizure disorder many years back and the patient has not been on seizure medication. Her last seizure was back in the 70s., 8 sleep apnea, obstructive sleep apnea with suboptimal compliance to CPAP therapy 9 chronic anemia: Further evaluation as an outpatient 10 peripheral vascular disease 11 remote history of DVT 12 bipolar disorder
[2016-12-02] MEDS: LACTATED RINGERS 1,000 ML IV SCH (15:54)
[2016-12-02 17:15] LABS: Glucose,Whole Blood 96 mg/dL (75-99)
[2016-12-02] MEDS: risperiDONE 1 MG TAB PO SCH (20:13)
[2016-12-02] MEDS: MIRTAZAPINE 15 MG TAB PO SCH (20:13)
[2016-12-02 20:29] LABS: Glucose,Whole Blood 133 mg/dL (75-99)
[2016-12-03] MEDS: PIPERACILLIN-TAZOBACTAM 3.375 GM in DEXTROSE/WATER 1 50ML.BAG IVPB SCH ×3 (03:55→21:29)
--- NOTE | 2016-12-03 06:54 | P.PN ---
Subjective Principal diagnosis: Postoperative day one small bowel resection for inflammatory small bowel mass The patient is feeling better. She is able to ambulate with minimal assistance. Tolerating clear liquids. She is hungry and would like more to eat. Objective - Vital Signs Vital signs: Vital Signs Temp 98.2 F 12/02/16 22:34 Pulse 67 12/02/16 22:34 Resp 16 12/02/16 22:34 BP 122/55 12/02/16 22:34 Pulse Ox 96 12/02/16 22:34 Intake & Output 12/02/16 12/02/16 12/03/16 06:59 18:59 06:59 Intake Total 1055 1000 480 Output Total 6543 936 4777 Balance -205 625 -820 Weight 62.3 kg Intake: IV 505 20 0.9 at KVO 80 20 Lactated Ringers 1,000 ml 225 @ 125 mls/hr IV .Q8H [facility] Rx#:[id number] Magnesium Sulfate-D5w Pmx 200 1 gm In Dextrose/Water 1 100ml.bag @ 100 mls/hr IVPB Q1H [facility] Rx#: [id number] Intake, IV Titration 550 500 Amount Lactated Ringers 1,000 ml 250 450 @ 50 mls/hr IV .Q20H [facility] Rx#:[id number] Piperacillin-Tazobactam 3 100 50 .375 gm In Dextrose/Water 1 50ml.bag @ 12.5 mls/hr IVPB Q8H [facility] Rx#: [id number] Potassium Chloride 10 meq 200 Lidocaine 2% Inj 10 mg In Sodium Chloride 0.9% 100 ml @ 100 mls/hr IV Q1HR [facility] Rx#:[id number] Oral 480 480 Output: Urine 3452 387 1873 Other: Voiding Method Indwelling Catheter Indwelling Catheter Indwelling Catheter # Voids 2 # Bowel Movements 0 - Constitutional General appearance: Present: cooperative, no acute distress - Respiratory Respiratory: bilateral: CTA - Gastrointestinal General gastrointestinal: Present: decreased bowel sounds (But improving), soft Localized gastrointestinal: surgical scar: diffuse (Dressings clean and dry) - Labs CBC & Chem 7: 12/02/16 05:35 12/02/16 05:35 Labs: Abnormal Lab Results - Last 24 Hours (Table) 12/02/16 12/02/16 Range/Units 05:35 20:27 Glucose 100 H (74-99) mg/dL POC Glucose (mg/dL) 133 H (75-99) mg/dL Magnesium 2.4 H (1.6-2.3) mg/dL Microbiology - Last 24 Hours (Table) 11/29/16 15:45 Blood Culture - Preliminary Blood No Growth after 72 hours Assessment and Plan (1) Small bowel mass Status: Acute Plan: We'll slowly advance her diet. She's progressing well surgically.
[2016-12-03 07:21] LABS: Glucose,Whole Blood 98 mg/dL (75-99)
[2016-12-03 07:33] LABS: Anion Gap 9 mmol/L; Blood Urea Nitrogen 12 mg/dL (7-17); Calcium 8.4 mg/dL (8.4-10.2); Carbon Dioxide 28 mmol/L (22-30); Chloride 104 mmol/L (98-107); Glucose 100 mg/dL (74-99); Non-African American GFR(MDRD) >60 (>60 ml/min/1.73 sqM); Phosphorous 2.4 mg/dL (2.5-4.5); Potassium 3.5 mmol/L (3.5-5.1); Sodium 141 mmol/L (137-145)
[2016-12-03] MEDS: INSULIN LISPRO (humaLOG) 300 UNIT/3 ML VIAL SQ SCH ×4 (07:47→21:29)
[2016-12-03] MEDS: MEMANTINE 10 MG TAB PO SCH ×2 (07:54→21:28)
[2016-12-03] MEDS: LORATADINE 10 MG TAB PO SCH (07:54)
[2016-12-03] MEDS: HEPARIN SODIUM,PORCINE 5,000 UNIT/ML 1 ML VIAL SQ SCH ×2 (07:54→16:35)
[2016-12-03] MEDS: DONEPEZIL 10 MG TAB PO SCH (07:54)
[2016-12-03] MEDS: PANTOPRAZOLE 40 MG/10 ML VIAL IVP SCH (07:55)
[2016-12-03] MEDS: SERTRALINE 50 MG TAB PO SCH (07:55)
[2016-12-03] MEDS: MONTELUKAST 10 MG TAB PO SCH (07:55)
[2016-12-03 11:57] LABS: Glucose,Whole Blood 110 mg/dL (75-99)
[2016-12-03] MEDS: LACTATED RINGERS 1,000 ML IV SCH (12:00)
--- NOTE | 2016-12-03 13:51 | P.PN ---
Subjective Principal diagnosis: Status post exploratory laparotomy and small bowel resection postoperative day # 3. 66-year-old female patient, presented to the hospital because of abdominal pain. Pain was mainly in the left upper quadrant. She had a CAT scan of the abdomen that was done in the emergency department and the CAT scan showed left upper quadrant Jujenal process consistent with bowel infarction versus abscess. The other possibilities within the differential diagnosis included bowel ischemia/infarct/foreign body/small bowel lymphoma. Based on all this the patient was taken to the operating room and exploration was done with small bowel was run fluid Treitz and in the left upper quadrant there was a small bowel inflammatory mass. There appeared to be extension of the mass into the mesentery. The mass appeared to be inflamed. At this point a limited small bowel resection was performed by dividing the small bowel proximally distally to the mass using the linear cutter stapler. A [id number] functional end-to- end staple anastomosis created . Postop, the patient was brought into the intensive care unit intubated on a mechanical ventilator. At this point in time , the patient sedated with Diprivan which is running at 10 mics. She is an assist-control mode of ventilation at the rate of 12, tidal volume 450, FiO2 of 50% and PEEP of 5. Chest x-ray shows adequate expansion of both lungs and ET tube is in a good location and the OG tube is also elevated location. Had blood gases that showed a component of acute respiratory alkalosis with a pH of 7.52 and a pCO2 of 22 and pO2 188. Hemodynamically she is stable. She is on a solution at the rate of 1 25 mL an hour. The patient is also on IV Zosyn. She is easily arousable. She is gently sedated for now. She has an adequate urine output. No discomfort. She is on subcu heparin for DVT prophylaxis. She is also on Protonix for GI prophylaxis. On 12/01/2016 the patient is being seen in follow-up. This morning she is awake and alert. Overnight she received a total of 3 L of IV fluid. Urine output remains low at around 10 mL an hour. She is however awake and alert and she is following commands and responding appropriately. She has good weaning parameters. Her chest x-ray is also clear. ET tube is in a good location. No significant atelectatic changes in lung bases bilaterally. No pneumonia. No airspace disease. The OG tube is also in place and output has been minimal since she came from the operating room. Abdomen is nondistended. Surgical wound site is dry clean and intact. No abdominal distention. No abdominal pain. No significant edema in her upper and lower extremities. She is afebrile. She is on IV Zosyn. She is on DVT and GI prophylaxis. On 2016 the patient is being seen in follow-up. The patient was extubated yesterday without a major difficulties. The patient is doing well. Awake and alert and communicating. No abdominal distention. No nausea. No vomiting. The surgical wound site is dry clean and intact. She was placed on a clear liquid diet. She has bowel activity and she is passing flatus. Electrolytes are all within normal limits. Potassium level was replaced yesterday. Hemoglobin stable at 11.1. No leukocytosis. She is using the incentive spirometer. On 12/03/2016, patient was seen on follow-up, and she seems to be doing quite well. Denies any shortness of breath, no cough, no wheezing, and her GI symptoms have resolved. Basic metabolic profile is relatively normal, renal profile is normal and sugar is 110. Objective - Vital Signs Vital signs: Vital Signs Temp 98.6 F 12/03/16 07:00 Pulse 69 12/03/16 08:01 Resp 16 12/03/16 08:01 BP 135/72 12/03/16 07:00 Pulse Ox 94 L 12/03/16 08:21 Intake & Output 12/02/16 12/03/16 12/03/16 18:59 06:59 18:59 Intake Total 0934 835 0979 Output Total 375 1300 100 Balance 625 -820 1400 Intake: IV 20 140 0.9 at KVO 20 140 Intake, IV Titration 500 400 Amount Lactated Ringers 1,000 ml 450 350 @ 50 mls/hr IV .Q20H [facility] Rx#:[id number] Piperacillin-Tazobactam 3 50 50 .375 gm In Dextrose/Water 1 50ml.bag @ 12.5 mls/hr IVPB Q8H [facility] Rx#: [id number] Oral 480 480 960 Output: Urine 375 1300 100 Uretheral (Casarez) 100 Other: Voiding Method Indwelling Catheter Indwelling Catheter Indwelling Catheter # Voids 2 - Exam Physical Exam HEENT:[Neck is supple.] [No neck masses.] [No thyromegaly.] [No JVD.] Chest: [Clear throughout, no crackles, no rhonchi, no wheezes.] Cardiac Exam: [Normal S1 and S2, no S3 gallop, no murmur.] Abdomen: [Soft, nontender, no megaly, no rebound, no guarding, normal bowel sounds.] Extremities: [No clubbing, no edema, no cyanosis.] Neurological Exam: [No focal neurologic deficit.] - Labs CBC & Chem 7: 12/02/16 05:35 12/03/16 06:46 Labs: Abnormal Lab Results - Last 24 Hours (Table) 12/02/16 12/03/16 12/03/16 Range/Units 20:27 06:46 11:55 Glucose 100 H (74-99) mg/dL POC Glucose (mg/dL) 133 H 110 H (75-99) mg/dL Phosphorus 2.4 L (2.5-4.5) mg/dL Microbiology - Last 24 Hours (Table) 11/29/16 15:45 Blood Culture - Preliminary Blood No Growth after 72 hours Assessment and Plan Plan: 1 exploratory laparotomy and small bowel resection with the potential of a underlying inflammatory/malignant small bowel lesion/mass. Patient is postop day #3. Currently on IV Zosyn. Hemodynamically stable. 2 postoperative ventilator dependence, extubated without any major difficulties 3 Bronchial asthma, currently inactive in stable 4 dementia, 5 diabetes mellitus, maintained on oral hypoglycemics and the patient will be placed on this a scale coverage for now 6 hyperlipidemia 7 coronary artery disease with previous myocardial infarction 8 seizure disorder many years back and the patient has not been on seizure medication. Her last seizure was back in the 70s., 9 sleep apnea, obstructive sleep apnea with suboptimal compliance to CPAP therapy 10 recent fall with a nasal fracture 11 chronic anemia 12 peripheral vascular disease 13 diverticulosis, with previous history of bowel resection, colostomy and subsequent reversal. 14 cardiac murmur 15 remote history of DVT 16 bipolar disorder Recommendation: Continue incentive spirometry, ambulation, we'll follow as needed. We'll sign off for now. Time with Patient: Less than 30
--- NOTE | 2016-12-03 14:07 | P.PN ---
Subjective Patient is status post partial small bowel resection. Her abdominal pain resolved and patient examined sitting in the hallway. Did move her bowel REVIEW OF SYSTEMS: CARDIOVASCULAR: No chest pain, no orthopnea, no PND, no palpitations. PULMONARY: Denied any shortness of breath. No cough or hemoptysis. GASTROINTESTINAL: As mentioned above. NEUROLOGIC: No headaches, no weakness, no numbness. Objective - Vital Signs Vital signs: Vital Signs Temp 98.6 F 12/03/16 07:00 Pulse 69 12/03/16 08:01 Resp 16 12/03/16 08:01 BP 135/72 12/03/16 07:00 Pulse Ox 94 L 12/03/16 08:21 Intake & Output 12/02/16 12/03/16 12/03/16 18:59 06:59 18:59 Intake Total 8087 080 8119 Output Total 375 1300 100 Balance 625 -820 1400 Intake: IV 20 140 0.9 at KVO 20 140 Intake, IV Titration 500 400 Amount Lactated Ringers 1,000 ml 450 350 @ 50 mls/hr IV .Q20H [facility] Rx#:[id number] Piperacillin-Tazobactam 3 50 50 .375 gm In Dextrose/Water 1 50ml.bag @ 12.5 mls/hr IVPB Q8H [facility] Rx#: [id number] Oral 480 480 960 Output: Urine 375 1300 100 Uretheral ([place]arez) 100 Other: Voiding Method Indwelling Catheter Indwelling Catheter Indwelling Catheter # Voids 2 - Exam PHYSICAL EXAMINATION: GENERAL: The patient is alert and oriented x3, not in any acute distress. Well developed, well nourished. HEENT: Pupils are round and equally reacting to light. EOMI. No scleral icterus. No conjunctival pallor. Normocephalic, atraumatic. No pharyngeal erythema. No thyromegaly. CARDIOVASCULAR: S1 and S2 present. No murmurs, rubs, or gallops. PULMONARY: Chest is clear to auscultation, no wheezing or crackles. ABDOMEN: Soft, nontender, nondistended, normoactive bowel sounds. No palpable organomegaly, surgical site area appeared to be clean. MUSCULOSKELETAL: No joint swelling or deformity. EXTREMITIES: No cyanosis, clubbing, or pedal edema. NEUROLOGICAL: Gross neurological examination did not reveal any focal deficits. SKIN: No rashes. - Labs CBC & Chem 7: 12/02/16 05:35 12/03/16 06:46 Labs: Abnormal Lab Results - Last 24 Hours (Table) 12/02/16 12/03/16 12/03/16 Range/Units 20:27 06:46 11:55 Glucose 100 H (74-99) mg/dL POC Glucose (mg/dL) 133 H 110 H (75-99) mg/dL Phosphorus 2.4 L (2.5-4.5) mg/dL Microbiology - Last 24 Hours (Table) 11/29/16 15:45 Blood Culture - Preliminary Blood No Growth after 72 hours Assessment and Plan Plan: 1 abdominal pain: Secondary to small bowel infarction, status post laparotomy and partial small bowel resection. Patient is on Zosyn. Patient most probably has an inflammatory mass which led to bowel obstruction and infarction. Pending pathology. 2 Bronchial asthma, no acute exacerbation 3 dementia: Patient has diagnosed of also was dementia 4 diabetes mellitus, oral hypoglycemic agents were discontinued and patient will be started on subcutaneous insulin insulin 5 hyperlipidemia 6 coronary artery disease with previous myocardial infarction 7 seizure disorder many years back and the patient has not been on seizure medication. Her last seizure was back in the 70s., 8 sleep apnea, obstructive sleep apnea with suboptimal compliance to CPAP therapy 9 chronic anemia: Further evaluation as an outpatient 10 peripheral vascular disease 11 remote history of DVT 12 bipolar disorder
[2016-12-03 17:17] LABS: Glucose,Whole Blood 105 mg/dL (75-99)
[2016-12-03 20:26] LABS: Glucose,Whole Blood 136 mg/dL (75-99)
[2016-12-03] MEDS: risperiDONE 1 MG TAB PO SCH (21:28)
[2016-12-03] MEDS: MIRTAZAPINE 15 MG TAB PO SCH (21:28)
[2016-12-04] MEDS: HEPARIN SODIUM,PORCINE 5,000 UNIT/ML 1 ML VIAL SQ SCH ×4 (00:38→23:25)
[2016-12-04] MEDS: PIPERACILLIN-TAZOBACTAM 3.375 GM in DEXTROSE/WATER 1 50ML.BAG IVPB SCH ×3 (04:01→20:49)
[2016-12-04 07:10] LABS: Anion Gap 8 mmol/L; Blood Urea Nitrogen 8 mg/dL (7-17); Calcium 8.7 mg/dL (8.4-10.2); Carbon Dioxide 26 mmol/L (22-30); Chloride 108 mmol/L (98-107); Glucose 100 mg/dL (74-99); Magnesium 1.9 mg/dL (1.6-2.3); Non-African American GFR(MDRD) >60 (>60 ml/min/1.73 sqM); Phosphorous 3.4 mg/dL (2.5-4.5); Potassium 3.5 mmol/L (3.5-5.1); Sodium 142 mmol/L (137-145)
[2016-12-04 07:17] LABS: Glucose,Whole Blood 107 mg/dL (75-99)
[2016-12-04] MEDS: INSULIN LISPRO (humaLOG) 300 UNIT/3 ML VIAL SQ SCH ×4 (07:19→20:54)
[2016-12-04] MEDS: LACTATED RINGERS 1,000 ML IV SCH (07:22)
[2016-12-04 07:26] LABS: Basophils % (A) 1 %; CH 28.7; CHCM 32.1; Eosinophils # (A) 0.2 k/uL (0-0.7); Eosinophils % (A) 4 %; HDW 2.54; Luc # (Auto) 0.11; Luc % (Auto) 2; Lymphocytes # (A) 1.5 k/uL (1.0-4.8); Lymphocytes % (A) 27 %; MCH 29.9 pg (25.0-35.0); MCHC 33.3 g/dL (31.0-37.0); MCV 89.8 fL (80.0-100.0); Mean Platelet Volume 6.9; Monocytes # (A) 0.3 k/uL (0-1.0); Monocytes % (A) 6 %; Neutrophils # (A) 3.5 k/uL (1.3-7.7); Neutrophils % (A) 61 %; RBC 3.12 m/uL (3.80-5.40); RDW 12.1 % (11.5-15.5); WBC 5.7 k/uL (3.8-10.6); WBC (Perox) 6.01
[2016-12-04 07:29] LABS: HGB 9.3 gm/dL (11.4-16.0)
[2016-12-04] MEDS: PANTOPRAZOLE 40 MG/10 ML VIAL IVP SCH (08:33)
[2016-12-04] MEDS: DONEPEZIL 10 MG TAB PO SCH (08:33)
[2016-12-04] MEDS: MONTELUKAST 10 MG TAB PO SCH (08:33)
[2016-12-04] MEDS: LORATADINE 10 MG TAB PO SCH (08:33)
[2016-12-04] MEDS: MEMANTINE 10 MG TAB PO SCH ×2 (08:33→20:49)
[2016-12-04] MEDS: SERTRALINE 50 MG TAB PO SCH (08:34)
--- NOTE | 2016-12-04 10:28 | P.PN ---
Subjective Principal diagnosis: Postoperative day one small bowel resection for inflammatory small bowel mass The patient's tolerating a diet. She reported having 5 bowel movements this morning which were loose. She also had several bowel movements through the night. No cramps, nausea, vomiting Objective - Vital Signs Vital signs: Vital Signs Temp 98.2 F 12/04/16 07:00 Pulse 62 12/04/16 07:52 Resp 18 12/04/16 07:35 BP 146/68 12/04/16 07:52 Pulse Ox 93 L 12/04/16 07:00 Intake & Output 12/03/16 12/04/16 12/04/16 18:59 06:59 18:59 Intake Total 1980 480 Output Total 100 Balance 1880 480 Weight 62.3 kg Intake: IV 140 0.9 at KVO 140 Intake, IV Titration 400 Amount Lactated Ringers 1,000 ml 350 @ 50 mls/hr IV .Q20H [facility] Rx#:[id number] Piperacillin-Tazobactam 3 50 .375 gm In Dextrose/Water 1 50ml.bag @ 12.5 mls/hr IVPB Q8H [facility] Rx#: [id number] Oral 1440 480 Output: Urine 100 Uretheral ([facility]) 100 Other: Voiding Method Indwelling Catheter Toilet Toilet # Voids 1 1 # Bowel Movements 1 - Constitutional General appearance: Present: cooperative, no acute distress - Respiratory Respiratory: bilateral: CTA - Gastrointestinal General gastrointestinal: Present: decreased bowel sounds, soft. Absent: tenderness - Labs CBC & Chem 7: 12/04/16 06:28 12/04/16 06:28 Labs: Abnormal Lab Results - Last 24 Hours (Table) 12/03/16 12/03/16 12/03/16 Range/Units 11:55 17:15 20:25 RBC (3.80-5.40) m/uL Hgb (11.4-16.0) gm/dL Hct (34.0-46.0) % Chloride (98-107) mmol/L Glucose (74-99) mg/dL POC Glucose (mg/dL) 110 H 105 H 136 H (75-99) mg/dL 12/04/16 12/04/16 12/04/16 Range/Units 06:28 06:28 07:06 RBC 3.12 L (3.80-5.40) m/uL Hgb 9.3 L D (11.4-16.0) gm/dL Hct 28.0 L (34.0-46.0) % Chloride 108 H (98-107) mmol/L Glucose 100 H (74-99) mg/dL POC Glucose (mg/dL) 107 H (75-99) mg/dL Microbiology - Last 24 Hours (Table) 11/29/16 15:45 Blood Culture - Preliminary Blood No Growth after 96 hours Assessment and Plan (1) Small bowel mass Status: Acute (2) Diarrhea Status: Acute Plan: Due to the frequency of stooling recommend C. diff. If that's negative in the stooling improves anticipate discharge in the next day or 2.
--- NOTE | 2016-12-04 11:18 | P.PN ---
Subjective Principal diagnosis: Status post exploratory laparotomy and small bowel resection. 66-year-old female patient, presented to the hospital because of abdominal pain. Pain was mainly in the left upper quadrant. She had a CAT scan of the abdomen that was done in the emergency department and the CAT scan showed left upper quadrant Jujenal process consistent with bowel infarction versus abscess. The other possibilities within the differential diagnosis included bowel ischemia/infarct/foreign body/small bowel lymphoma. Based on all this the patient was taken to the operating room and exploration was done with small bowel was run fluid Treitz and in the left upper quadrant there was a small bowel inflammatory mass. There appeared to be extension of the mass into the mesentery. The mass appeared to be inflamed. At this point a limited small bowel resection was performed by dividing the small bowel proximally distally to the mass using the linear cutter stapler. A [id number] functional end-to- end staple anastomosis created . Postop, the patient was brought into the intensive care unit intubated on a mechanical ventilator. At this point in time , the patient sedated with Diprivan which is running at 10 mics. She is an assist-control mode of ventilation at the rate of 12, tidal volume 450, FiO2 of 50% and PEEP of 5. Chest x-ray shows adequate expansion of both lungs and ET tube is in a good location and the OG tube is also elevated location. Had blood gases that showed a component of acute respiratory alkalosis with a pH of 7.52 and a pCO2 of 22 and pO2 188. Hemodynamically she is stable. She is on a solution at the rate of 1 25 mL an hour. The patient is also on IV Zosyn. She is easily arousable. She is gently sedated for now. She has an adequate urine output. No discomfort. She is on subcu heparin for DVT prophylaxis. She is also on Protonix for GI prophylaxis. On 12/01/2016 the patient is being seen in follow-up. This morning she is awake and alert. Overnight she received a total of 3 L of IV fluid. Urine output remains low at around 10 mL an hour. She is however awake and alert and she is following commands and responding appropriately. She has good weaning parameters. Her chest x-ray is also clear. ET tube is in a good location. No significant atelectatic changes in lung bases bilaterally. No pneumonia. No airspace disease. The OG tube is also in place and output has been minimal since she came from the operating room. Abdomen is nondistended. Surgical wound site is dry clean and intact. No abdominal distention. No abdominal pain. No significant edema in her upper and lower extremities. She is afebrile. She is on IV Zosyn. She is on DVT and GI prophylaxis. On 2016 the patient is being seen in follow-up. The patient was extubated yesterday without a major difficulties. The patient is doing well. Awake and alert and communicating. No abdominal distention. No nausea. No vomiting. The surgical wound site is dry clean and intact. She was placed on a clear liquid diet. She has bowel activity and she is passing flatus. Electrolytes are all within normal limits. Potassium level was replaced yesterday. Hemoglobin stable at 11.1. No leukocytosis. She is using the incentive spirometer. On 12/03/2016, patient was seen on follow-up, and she seems to be doing quite well. Denies any shortness of breath, no cough, no wheezing, and her GI symptoms have resolved. Basic metabolic profile is relatively normal, renal profile is normal and sugar is 110. The patient is seen again today 12/04/2016 in follow-up in the regular medical floor. She is awake and alert in no acute distress she had been passing some loose bloody stools and was seen and evaluated by Dr. Xavier today. The plan is for possible discharge tomorrow. We're checking a C. diff. He has no pulmonary complaints. She is maintaining good O2 saturation in the 90s on room air. She's been afebrile. Hemodynamically stable. Hemoglobin stable at 9.3. No leukocytosis. Objective - Vital Signs Vital signs: Vital Signs Temp 98.2 F 12/04/16 07:00 Pulse 62 12/04/16 07:52 Resp 18 12/04/16 07:35 BP 146/68 12/04/16 07:52 Pulse Ox 93 L 12/04/16 07:00 Intake & Output 12/03/16 12/04/16 12/04/16 18:59 06:59 18:59 Intake Total 1980 480 Output Total 100 Balance 1880 480 Weight 62.3 kg Intake: IV 140 0.9 at KVO 140 Intake, IV Titration 400 Amount Lactated Ringers 1,000 ml 350 @ 50 mls/hr IV .Q20H [facility] Rx#:[id number] Piperacillin-Tazobactam 3 50 .375 gm In Dextrose/Water 1 50ml.bag @ 12.5 mls/hr IVPB Q8H [facility] Rx#: [id number] Oral 1440 480 Output: Urine 100 Uretheral (Casarez) 100 Other: Voiding Method Indwelling Catheter Toilet Toilet # Voids 1 1 # Bowel Movements 1 - Exam GENERAL EXAM: Alert, active, comfortable in no apparent distress. HEAD: Normocephalic. EYES: Normal reaction of pupils, equal size. NOSE: Clear with pink turbinates. THROAT: No erythema or exudates. NECK: No masses, no JVD. CHEST: No chest wall deformity. LUNGS: Equal air entry with no crackles, wheeze, rhonchi or dullness. CVS: S1 and S2 normal with no audible mumurs, regular rhythm. ABDOMEN: Soft, normal bowel sounds, no guarding or rigidity. SPINE: No scoliosis or deformity SKIN: No rashes CENTRAL NERVOUS SYSTEM: No focal deficits, tone is normal in all 4 extremities. Extremities: There is no significant peripheral edema. No clubbing, no cyanosis. Peripheral pulses are intact. - Labs CBC & Chem 7: 12/04/16 06:28 12/04/16 06:28 Labs: Abnormal Lab Results - Last 24 Hours (Table) 12/03/16 12/03/16 12/03/16 Range/Units 11:55 17:15 20:25 RBC (3.80-5.40) m/uL Hgb (11.4-16.0) gm/dL Hct (34.0-46.0) % Chloride (98-107) mmol/L Glucose (74-99) mg/dL POC Glucose (mg/dL) 110 H 105 H 136 H (75-99) mg/dL 12/04/16 12/04/16 12/04/16 Range/Units 06:28 06:28 07:06 RBC 3.12 L (3.80-5.40) m/uL Hgb 9.3 L D (11.4-16.0) gm/dL Hct 28.0 L (34.0-46.0) % Chloride 108 H (98-107) mmol/L Glucose 100 H (74-99) mg/dL POC Glucose (mg/dL) 107 H (75-99) mg/dL Microbiology - Last 24 Hours (Table) 11/29/16 15:45 Blood Culture - Preliminary Blood No Growth after 96 hours Assessment and Plan Plan: Impression: 1 exploratory laparotomy and small bowel resection with the potential of a underlying inflammatory/malignant small bowel lesion/mass. Currently on IV Zosyn. Hemodynamically stable. 2 postoperative ventilator dependence, extubated without any major difficulties this is an expected outcome not a combination of surgery. 3 Bronchial asthma, currently inactive in stable 4 dementia, 5 diabetes mellitus, maintained on oral hypoglycemics and the patient will be placed on this a scale coverage for now 6 hyperlipidemia 7 coronary artery disease with previous myocardial infarction 8 seizure disorder many years back and the patient has not been on seizure medication. Her last seizure was back in the 70s., 9 sleep apnea, obstructive sleep apnea with suboptimal compliance to CPAP therapy 10 recent fall with a nasal fracture 11 chronic anemia 12 peripheral vascular disease 13 diverticulosis, with previous history of bowel resection, colostomy and subsequent reversal. 14 cardiac murmur 15 remote history of DVT 16 bipolar disorder Plan: The patient was seen and evaluated by Dr. Silver. She is stable from the pulmonary and critical care standpoint. We'll continue to observe for recurrent bloody bowel movements. We'll continue with her current medications. We'll increase her activity as tolerated. We'll continue to follow.
[2016-12-04 11:32] LABS: Glucose,Whole Blood 117 mg/dL (75-99)
--- NOTE | 2016-12-04 14:31 | P.PN ---
Subjective Patient is status post partial small bowel resection. Her abdominal pain resolved and patient examined sitting in the hallway. I was told by the nursing staff that patient had multiple bowel movements yesterday which are bloody and patient's hemoglobin is 9.3 compared to 11 couple days ago because of which I'm unable to discharge the patient will monitor her. She has more loose bowel movements today, will obtain C. diff testing. She does have hemorrhoids which may have contributed to her blood in the stool last night. REVIEW OF SYSTEMS: CARDIOVASCULAR: No chest pain, no orthopnea, no PND, no palpitations. PULMONARY: Denied any shortness of breath. No cough or hemoptysis. GASTROINTESTINAL: As mentioned above. NEUROLOGIC: No headaches, no weakness, no numbness. Objective - Vital Signs Vital signs: Vital Signs Temp 98.2 F 12/04/16 07:00 Pulse 62 12/04/16 07:52 Resp 18 12/04/16 07:35 BP 146/68 12/04/16 07:52 Pulse Ox 93 L 12/04/16 07:00 Intake & Output 12/03/16 12/04/16 12/04/16 18:59 06:59 18:59 Intake Total 9418 633 8549 Output Total 100 Balance 7124 848 7165 Weight 62.3 kg Intake: IV 140 0.9 at KVO 140 Intake, IV Titration 400 375 Amount Lactated Ringers 1,000 ml 350 325 @ 50 mls/hr IV .Q20H [facility] Rx#:[id number] Piperacillin-Tazobactam 3 50 50 .375 gm In Dextrose/Water 1 50ml.bag @ 12.5 mls/hr IVPB Q8H [facility] Rx#: [id number] Oral 1440 480 720 Output: Urine 100 Uretheral (Casarez) 100 Other: Voiding Method Indwelling Catheter Toilet Toilet # Voids 1 1 # Bowel Movements 1 - Exam GENERAL: The patient is alert and oriented x3, not in any acute distress. Well developed, well nourished. HEENT: Pupils are round and equally reacting to light. EOMI. No scleral icterus. No conjunctival pallor. Normocephalic, atraumatic. No pharyngeal erythema. No thyromegaly. CARDIOVASCULAR: S1 and S2 present. No murmurs, rubs, or gallops. PULMONARY: Chest is clear to auscultation, no wheezing or crackles. ABDOMEN: Soft, nontender, nondistended, normoactive bowel sounds. No palpable organomegaly, surgical site area appeared to be clean. MUSCULOSKELETAL: No joint swelling or deformity. EXTREMITIES: No cyanosis, clubbing, or pedal edema. NEUROLOGICAL: Gross neurological examination did not reveal any focal deficits. SKIN: No rashes. - Labs CBC & Chem 7: 12/04/16 06:28 12/04/16 06:28 Labs: Abnormal Lab Results - Last 24 Hours (Table) 12/03/16 12/03/16 12/04/16 Range/Units 17:15 20:25 06:28 RBC (3.80-5.40) m/uL Hgb (11.4-16.0) gm/dL Hct (34.0-46.0) % Chloride 108 H (98-107) mmol/L Glucose 100 H (74-99) mg/dL POC Glucose (mg/dL) 105 H 136 H (75-99) mg/dL 12/04/16 12/04/16 12/04/16 Range/Units 06:28 07:06 11:29 RBC 3.12 L (3.80-5.40) m/uL Hgb 9.3 L D (11.4-16.0) gm/dL Hct 28.0 L (34.0-46.0) % Chloride (98-107) mmol/L Glucose (74-99) mg/dL POC Glucose (mg/dL) 107 H 117 H (75-99) mg/dL Microbiology - Last 24 Hours (Table) 11/29/16 15:45 Blood Culture - Preliminary Blood No Growth after 96 hours Assessment and Plan Plan: 1 abdominal pain: Secondary to small bowel infarction, status post laparotomy and partial small bowel resection. Patient is on Zosyn. Patient most probably has an inflammatory mass which led to bowel obstruction and infarction. Pending pathology. Will monitor patient for any possible GI bleed which can be secondary to hemorrhoids as mentioned above. And if she has diarrhea will consider testing. 2 Bronchial asthma, no acute exacerbation 3 dementia: Patient has diagnosed of also was dementia 4 diabetes mellitus, oral hypoglycemic agents were discontinued and patient will be started on subcutaneous insulin insulin 5 hyperlipidemia 6 coronary artery disease with previous myocardial infarction 7 seizure disorder many years back and the patient has not been on seizure medication. Her last seizure was back in the 70s., 8 sleep apnea, obstructive sleep apnea with suboptimal compliance to CPAP therapy 9 chronic anemia: Further evaluation as an outpatient 10 peripheral vascular disease 11 remote history of DVT 12 bipolar disorder
[2016-12-04 17:05] LABS: Glucose,Whole Blood 119 mg/dL (75-99)
[2016-12-04 20:38] LABS: Glucose,Whole Blood 141 mg/dL (75-99)
[2016-12-04] MEDS: risperiDONE 1 MG TAB PO SCH (20:49)
[2016-12-04] MEDS: MIRTAZAPINE 15 MG TAB PO SCH (20:50)
[2016-12-05] MEDS: LACTATED RINGERS 1,000 ML IV SCH (02:16)
[2016-12-05] MEDS: PIPERACILLIN-TAZOBACTAM 3.375 GM in DEXTROSE/WATER 1 50ML.BAG IVPB SCH ×3 (03:39→21:01)
[2016-12-05 06:38] LABS: CH 29.1; CHCM 33.7; HCT 29.2 % (34.0-46.0); HDW 2.52; HGB 10.3 gm/dL (11.4-16.0); MCH 30.7 pg (25.0-35.0); MCHC 35.3 g/dL (31.0-37.0); MCV 86.7 fL (80.0-100.0); Mean Platelet Volume 7.1; RBC 3.36 m/uL (3.80-5.40); RDW 12.4 % (11.5-15.5); WBC 7.2 k/uL (3.8-10.6)
[2016-12-05 07:13] LABS: ALT 17 U/L (9-52); AST 30 U/L (14-36); Alkaline Phosphatase 98 U/L (38-126); Anion Gap 9 mmol/L; Blood Urea Nitrogen 9 mg/dL (7-17); Calcium 8.9 mg/dL (8.4-10.2); Carbon Dioxide 23 mmol/L (22-30); Chloride 109 mmol/L (98-107); Glucose 93 mg/dL (74-99); Magnesium 1.9 mg/dL (1.6-2.3); Non-African American GFR(MDRD) >60 (>60 ml/min/1.73 sqM); Phosphorous 3.7 mg/dL (2.5-4.5); Potassium 3.9 mmol/L (3.5-5.1); Sodium 141 mmol/L (137-145); Total Bilirubin 0.9 mg/dL (0.2-1.3); Total Protein 6.1 g/dL (6.3-8.2)
[2016-12-05 07:35] LABS: Glucose,Whole Blood 93 mg/dL (75-99)
[2016-12-05] MEDS: INSULIN LISPRO (humaLOG) 300 UNIT/3 ML VIAL SQ SCH ×4 (08:34→21:02)
[2016-12-05] MEDS: MEMANTINE 10 MG TAB PO SCH ×2 (09:30→21:02)
[2016-12-05] MEDS: LORATADINE 10 MG TAB PO SCH (09:30)
[2016-12-05] MEDS: HEPARIN SODIUM,PORCINE 5,000 UNIT/ML 1 ML VIAL SQ SCH ×2 (09:30→15:29)
[2016-12-05] MEDS: MONTELUKAST 10 MG TAB PO SCH (09:31)
[2016-12-05] MEDS: PANTOPRAZOLE 40 MG/10 ML VIAL IVP SCH (09:31)
[2016-12-05] MEDS: SERTRALINE 50 MG TAB PO SCH (09:31)
[2016-12-05] MEDS: DONEPEZIL 10 MG TAB PO SCH (09:31)
[2016-12-05 11:25] LABS: Glucose,Whole Blood 108 mg/dL (75-99)
--- NOTE | 2016-12-05 12:55 | CDI ---
In responding to this query, please exercise your independent professional judgment. The [facility] Coding Staff and Clinical Documentation Specialists appreciate your assistance in clarifying documentation, maintaining compliance with coding guidelines, accurately documenting patients condition and capturing severity of illness. The fact that a question is asked does not imply that any particular answer is desired or expected. Communication forms are a method of clarifying documentation and are not made part of the Legal Health Record. Thank you in advance for your clarification. Last Revision, Jul 2016 Viviana Herman [address] [place] [address] Documentation Clarification Form Date: 12/05/2016 12:29:00 PM From: Sarai Mercer Admit Date: 11/29/2016 7:48:00 PM Patient Name: Brooklyn Carrero Visit Number: [id number] Discharge Date: Dr. Clint Silver/Guerda Jackson COMPONENT INSPECTOR-C Postoperative ventilator dependence is documented in the progress notes. Patients Admitting Diagnosis: Abdominal pain secondary to small bowel infarction Post-Operative Diagnosis: same Procedure performed: Exploratory laparotomy and small bowel resection History/Risk Factors:, Diabetes mellitus, Bowel resection, hernia repair, Partial colon resection with colostomy then reversal Clinical Indicators: Presented because of abdominal pain. Cat scan consistent with bowel infarction versus abscess. Postop, the patient was brought into the intensive care unit intubated on a mechanical ventilator. She was sedated on a Diprivan drip. She was an assist- control mode of ventilation. ABG Post op: pH 7.52, pCO2 of 22, pO2 188. Component of acute respiratory alkalosis. Treatment: Monitor ICU Weaning parameters- Extubate In order to accurately reflect this patients severity of illness, please clarify if the post-operative diagnosis is: An expected post-procedural or post-surgical condition An unexpected post-procedural or post-surgical condition, with post op vent management Integral to the procedure, Inherent to the procedure Other, please specify Unable to determine Please document in your progress notes in order to capture severity of illness and risk of mortality. Include clinical findings that support your diagnosis. FYI: Press F11 to launch patient chart Place X here if this finding has no clinical significance, is not applicable or if you are not able to provide any additional documentation. BREANNA
--- NOTE | 2016-12-05 14:19 | P.PN ---
Progress Note - Text Patient is resting comfortably in bed. She has some mild incisional pain. On exam her vital signs are stable. Her abdomen soft. Her incisions are clean dry tach. Status post small bowel resection. Patient was discharged home tomorrow. We will encourage ambulation and increasing her oral diet.
--- NOTE | 2016-12-05 16:20 | P.PN ---
Subjective 66-year-old female came in to the hospital with complaints of abdominal pain. There is some concern over an obstruction of the proximal jejunum. Patient underwent exploratory laparoscopy status post resection of the mass that appeared to be inflammatory. Biopsy results are pending Patient incision appears to be stable Is able to tolerate diet and some degree of activity Denies having headaches blurry vision chest pain difficulty breathing nausea vomiting diarrhea. Patient did have diarrhea over the weekend C. diff toxin was sent which was negative Objective - Vital Signs Vital signs: Vital Signs Temp 98.5 F 12/05/16 14:56 Pulse 79 12/05/16 14:56 Resp 18 12/05/16 14:56 BP 173/76 12/05/16 14:56 Pulse Ox 94 L 12/05/16 14:56 Intake & Output 12/04/16 12/05/16 12/05/16 18:59 06:59 18:59 Intake Total 1095 500 450 Balance 1095 500 450 Intake: Intake, IV Titration 375 300 450 Amount Lactated Ringers 1,000 ml 325 200 400 @ 50 mls/hr IV .Q20H [facility] Rx#:[id number] Piperacillin-Tazobactam 3 50 100 50 .375 gm In Dextrose/Water 1 50ml.bag @ 12.5 mls/hr IVPB Q8H [facility] Rx#: [id number] Oral 720 200 Other: Voiding Method Toilet Toilet Toilet # Voids 2 1 1 # Bowel Movements 1 1 1 - Exam Physical exam Gen. appearance oriented 3 in no distress Neck is supple no JVD Lungs good air entry clear to auscultation no rhonchi or wheezing Heart S1-S2 heard regular rate and rhythm no murmurs appreciated Abdomen diffusely tender incision site appears clean Neurologically cranial nerves II-12 grossly intact no focal motor or sensory deficits noted Skin no abnormalities appreciated - Labs CBC & Chem 7: 12/05/16 06:16 12/05/16 06:16 Labs: Abnormal Lab Results - Last 24 Hours (Table) 12/04/16 12/04/16 12/05/16 Range/Units 17:02 20:33 06:16 RBC (3.80-5.40) m/uL Hgb (11.4-16.0) gm/dL Hct (34.0-46.0) % Chloride 109 H (98-107) mmol/L POC Glucose (mg/dL) 119 H 141 H (75-99) mg/dL Total Protein 6.1 L (6.3-8.2) g/dL Albumin 3.2 L (3.5-5.0) g/dL 12/05/16 12/05/16 Range/Units 06:16 11:19 RBC 3.36 L (3.80-5.40) m/uL Hgb 10.3 L (11.4-16.0) gm/dL Hct 29.2 L (34.0-46.0) % Chloride (98-107) mmol/L POC Glucose (mg/dL) 108 H (75-99) mg/dL Total Protein (6.3-8.2) g/dL Albumin (3.5-5.0) g/dL Microbiology - Last 24 Hours (Table) 11/29/16 15:45 Blood Culture - Preliminary Blood No Growth after 120 hours Assessment and Plan Plan: #1 bowel obstruction status post resection of jejunal inflammatory mass? #2 anemia, unknown etiology #3 history of reactive airway disease #4 history of hypertension #5 diabetes mellitus type 2 Plan Discussed with the patient regarding time of discharge. Encourage activity thereafter if patient is able tolerate diet will likely be discharged in the next 24 hours to follow-up with general surgery Pending path results
[2016-12-05 17:05] LABS: Glucose,Whole Blood 99 mg/dL (75-99)
[2016-12-05 20:33] LABS: Glucose,Whole Blood 170 mg/dL (75-99)
[2016-12-05 20:35] VITALS: RESP 16
[2016-12-05] MEDS: MIRTAZAPINE 15 MG TAB PO SCH (21:01)
[2016-12-05] MEDS: risperiDONE 1 MG TAB PO SCH (21:01)
[2016-12-06] MEDS: HEPARIN SODIUM,PORCINE 5,000 UNIT/ML 1 ML VIAL SQ SCH ×2 (00:21→08:36)
[2016-12-06] MEDS: LACTATED RINGERS 1,000 ML IV SCH (00:21)
[2016-12-06] MEDS: PIPERACILLIN-TAZOBACTAM 3.375 GM in DEXTROSE/WATER 1 50ML.BAG IVPB SCH (04:23)
[2016-12-06 07:22] LABS: Glucose,Whole Blood 93 mg/dL (75-99)
[2016-12-06] MEDS: INSULIN LISPRO (humaLOG) 300 UNIT/3 ML VIAL SQ SCH ×2 (07:30→12:09)
[2016-12-06] MEDS ORDERED: PANTOPRAZOLE 40 MG TABLET PO SCH (07:30)
[2016-12-06 07:47] VITALS: BP 136/66; PULSE 73; TEMP 97.7
[2016-12-06] MEDS: DONEPEZIL 10 MG TAB PO SCH (08:36)
[2016-12-06] MEDS: MONTELUKAST 10 MG TAB PO SCH (08:36)
[2016-12-06] MEDS: LORATADINE 10 MG TAB PO SCH (08:36)
[2016-12-06] MEDS: MEMANTINE 10 MG TAB PO SCH (08:37)
[2016-12-06] MEDS: SERTRALINE 50 MG TAB PO SCH (08:37)
[2016-12-06 08:48] VITALS: BMI 20.7
[2016-12-06 11:39] LABS: Glucose,Whole Blood 99 mg/dL (75-99)
--- NOTE | 2016-12-06 19:14 | P.DS ---
Providers Date of admission: 11/29/16 19:48 Attending physician: Kalyani Coleman Consults: 11/29/16 19:29 Consult Physician Routine Consulting Provider: Jose Juan Lela Consult Reason/Comments: colitis Do you want consulting provider notified?: Yes 11/30/16 17:12 Consult Physician Routine Consulting Provider: Ricco Pinto Consult Reason/Comments: icu Do you want consulting provider notified?: Yes Primary care physician: Jerry [facility] [place] Course: Subjective 66-year-old female came in to the hospital with complaints of abdominal pain. There is some concern over an obstruction of the proximal jejunum. Patient underwent exploratory laparoscopy status post resection of the mass that appeared to be inflammatory. Biopsy results are pending Patient incision appears to be stable Is able to tolerate diet and some degree of activity Denies having headaches blurry vision chest pain difficulty breathing nausea vomiting diarrhea. Patient did have diarrhea over the weekend C. diff toxin was sent which was negative - Exam Physical exam Gen. appearance oriented 3 in no distress Neck is supple no JVD Lungs good air entry clear to auscultation no rhonchi or wheezing Heart S1-S2 heard regular rate and rhythm no murmurs appreciated Abdomen diffusely tender incision site appears clean Neurologically cranial nerves II-12 grossly intact no focal motor or sensory deficits noted Skin no abnormalities appreciated Assessment and Plan Plan: #1 bowel obstruction status post resection of jejunal inflammatory mass? #2 anemia, unknown etiology #3 history of reactive airway disease #4 history of hypertension #5 diabetes mellitus type 2 Path results were reviewed with the patient patient is discharged home in a stable condition appears to have it inflammatory mass Patient Condition at Discharge: Stable Plan - Discharge Summary New Discharge Prescriptions: New HYDROcodone/APAP 5-325MG [Chauvin 5-325] 1 tab PO Q4HR PRN #40 tab PRN Reason: Pain Continue Albuterol Sulfate [Proair Hfa] 2 puff INHALATION RT-QID PRN PRN Reason: Shortness Of Breath Donepezil [Aricept] 10 mg PO DAILY Montelukast Sodium [Singulair] 10 mg PO DAILY Omeprazole [PriLOSEC] 20 mg PO HS Loratadine 10 mg PO QAM Memantine HCl [Namenda Xr] 28 mg PO DAILY risperiDONE [RisperDAL] 1 mg PO HS Famotidine [Pepcid] 20 mg PO DAILY glipiZIDE [Glucotrol] 5 mg PO DAILY traMADol HCL [Ultram] 50 mg PO BID PRN PRN Reason: Pain Sertraline [Zoloft] 50 mg PO QAM Mirtazapine 7.5 mg PO HS Discontinued Cephalexin [Keflex] 250 mg PO Q6HR #40 cap Discharge Medication List Albuterol Sulfate [Proair Hfa] 2 puff INHALATION RT-QID PRN 06/24/14 [History] Donepezil [Aricept] 10 mg PO DAILY 02/07/15 [History] Loratadine 10 mg PO QAM 06/28/16 [History] Montelukast Sodium [Singulair] 10 mg PO DAILY 06/28/16 [History] Omeprazole [PriLOSEC] 20 mg PO HS 06/28/16 [History] Memantine HCl [Namenda Xr] 28 mg PO DAILY 07/15/16 [History] risperiDONE [RisperDAL] 1 mg PO HS 08/16/16 [History] Famotidine [Pepcid] 20 mg PO DAILY 09/03/16 [History] glipiZIDE [Glucotrol] 5 mg PO DAILY 09/03/16 [History] Sertraline [Zoloft] 50 mg PO QAM 11/22/16 [History] traMADol HCL [Ultram] 50 mg PO BID PRN 11/22/16 [History] Mirtazapine 7.5 mg PO HS 11/29/16 [History] HYDROcodone/APAP 5-325MG [Chauvin 5-325] 1 tab PO Q4HR PRN #40 tab 12/05/16 [Rx] Follow up Appointment(s)/Referral(s): Jerry Golden DO [Primary Care Provider] - 12/14/16 2:20 pm [facility], [NON-STAFF] - Jose Juan Leal MD [STAFF PHYSICIAN] - 12/13/16 1:00 pm Patient Instructions/Handouts: Hydrocodone/Acetaminophen (By mouth), Exploratory Laparoscopy (DC), Ulcerative Colitis (DC), Sepsis (GEN), Laparoscopic Bowel Resection (DC) Activity/Diet/Wound Care/Special Instructions: Diet as tolerated. Activity as tolerated. Discharge Disposition: HOME SELF-CARE
--- NOTE | 2016-12-10 12:11 | CDI ---
In responding to this query, please exercise your independent professional judgment. The [facility] Coding Staff and Clinical Documentation Specialists appreciate your assistance in clarifying documentation, maintaining compliance with coding guidelines, accurately documenting patients condition and capturing severity of illness. The fact that a question is asked does not imply that any particular answer is desired or expected. Communication forms are a method of clarifying documentation and are not made part of the Legal Health Record. Thank you in advance for your clarification. Last Revision, September 2016 Viviana Herman [address] [place] [address] Documentation Clarification Form Date: 12/10/2016 11:53:00 AM From: Zina Moya Admit Date: 11/29/2016 7:48:00 PM Patient Name: Brooklyn Carrero Visit Number: [id number] Discharge Date: 12/06/16 Dr. Mohit Cuellar Documentation of sepsis in ED record and in DS under patient instructions/ handouts. History/Risk Factors: asthma/COPD/heart failure/dementia/DM/GERD/hyperlipidemia/ OA/MT/ESTEFANY/seizure disorder Clinical Indicators: WBC/Left Shift 16.5/14.5 Lactic acid: 1.3 Blood cultures: no growth Vitals signs on admission: T-101.0 &101.8/P-91/R-16 & 18/132/70 & 123/59/O2-94 Other Clinical Indicators: Total Bili-1.0 & then 1.4 on 12/01 Treatment: surgery & IV Zosyn In your professional opinion, please clarify if these findings signify one of the following conditions, whether the condition is POA, and cause, if known: Conditions: Sepsis, ruled out SIRS, without underlying infectious process Sepsis Severe Sepsis Septic Shock Unable to determine Other, please specify Present on Admission: Yes No * Identify the (suspected) organism * Link or clarify if there is associated (due to/with): - Organ failure - Shock SIRS Criteria: 2 or more of the following may indicate SIRS Temperature < 96.8F(36C) or > 101.0F (38C) Heart Rate > 90 bpm Respiratory Rate > 20 breaths/min or PaCO2 < 32 mmHg White Blood Cell Count > 12,000 or < 4,000 cells/mm3 or > 10% bands Lactate >2.0 mmol/L (>4.0 is equivalent to septic shock) Please document your addendum in your discharge summary in order to capture severity of illness and risk of mortality. Include clinical findings that support your diagnosis. FYI: Press F11 to launch patient chart. Place X here if this finding has no clinical significance, is not applicable or if you are not able to provide any additional documentation. ANIVAL Perales, [facility], [facility] Certified [employer]ward[employer]/[place]/Steward/[employer] If you have any questions or concerns please contact Yesenia Carson, Addiction Counselor, Viviana Herman @ [phone] [facility]
--- NOTE | 2016-12-11 15:47 | CDI ---
In responding to this query, please exercise your independent professional judgment. The [facility] Coding Staff and Clinical Documentation Specialists appreciate your assistance in clarifying documentation, maintaining compliance with coding guidelines, accurately documenting patients condition and capturing severity of illness. The fact that a question is asked does not imply that any particular answer is desired or expected. Communication forms are a method of clarifying documentation and are not made part of the Legal Health Record. Thank you in advance for your clarification. Last Revision, September 2016 Viviana Herman [address] [place] [address] Documentation Clarification Form Date: 12/10/2016 11:53:00 AM From: Zina Moya Admit Date: 11/29/2016 7:48:00 PM Patient Name: Brooklyn Carrero Visit Number: [id number] Discharge Date: Dr. Mohit Cuellar Documentation of sepsis in ED record and in DS under patient instructions/ handouts. History/Risk Factors: asthma/COPD/heart failure/dementia/DM/GERD/hyperlipidemia/ OA/OH/ESTEFANY/seizure disorder Clinical Indicators: WBC/Left Shift 16.5/14.5 Lactic acid: 1.3 Blood cultures: no growth Vitals signs on admission: T-101.0 &101.8/P-91/R-16 & 18/132/70 & 123/59/O2-94 Other Clinical Indicators: Total Bili-1.0 & then 1.4 on 12/01 Treatment: surgery & IV Zosyn In your professional opinion, please clarify if these findings signify one of the following conditions, whether the condition is POA, and cause, if known: Sepsis, ruled out SIRS, without underlying infectious process Sepsis Severe Sepsis Septic Shock Unable to determine Other, please specify Present on Admission: Yes No * Identify the (suspected) organism * Link or clarify if there is associated (due to/with): - Organ failure - Shock SIRS Criteria: 2 or more of the following may indicate SIRS Temperature < 96.8F(36C) or > 101.0F (38C) Heart Rate > 90 bpm Respiratory Rate > 20 breaths/min or PaCO2 < 32 mmHg White Blood Cell Count > 12,000 or < 4,000 cells/mm3 or > 10% bands Lactate >2.0 mmol/L (>4.0 is equivalent to septic shock) Please document your addendum in your discharge summary in order to capture severity of illness and risk of mortality. Include clinical findings that support your diagnosis. FYI: Press F11 to launch patient chart. Place X here if this finding has no clinical significance, is not applicable or if you are not able to provide any additional documentation. ANIVAL Perales, [facility], [facility] Certified I-10 Ballistic Technician/Piercing Specialist/Ballistic Technician II If you have any questions or concerns please contact Yesenia Carson, Commanding Officer Traffic Division, Viviana Herman @ [phone] [facility]
== END 2016-12-06 14:20 | disposition home health service (06) | DRG 853 ==
LOC: EC 14:04 → 4MS4W 19:48 → 6ICU 11-30 17:35 → 5MS5E 12-02 12:35
PROVIDERS: ADMIT Internal Medicine; ATTEND Internal Medicine
PROC: 02HV33Z Insertion of Infusion Device into Superior Vena Cava, Percutaneous Approach (ICD-10-PCS; 2016-11-30)
PROC: 0D9670Z Drainage of Stomach with Drainage Device, Via Natural or Artificial Opening (ICD-10-PCS; 2016-11-30)
PROC: 0DBA0ZX Excision of Jejunum, Open Approach, Diagnostic (ICD-10-PCS; principal; 2016-11-30 07:30)
DX: A41.9 Sepsis, unspecified organism (principal); K55.029 Acute infarction of small intestine, extent unspecified; E87.3 Alkalosis; K56.60 Unspecified intestinal obstruction; I11.0 Hypertensive heart disease with heart failure; I50.9 Heart failure, unspecified; F03.90 Unspecified dementia, unspecified severity, without behavioral disturbance, psychotic disturbance, mood disturbance, and anxiety; E11.51 Type 2 diabetes mellitus with diabetic peripheral angiopathy without gangrene; K52.89 Other specified noninfective gastroenteritis and colitis; G47.33 Obstructive sleep apnea (adult) (pediatric); I25.2 Old myocardial infarction; K64.9 Unspecified hemorrhoids; I25.10 Atherosclerotic heart disease of native coronary artery without angina pectoris; K21.9 Gastro-esophageal reflux disease without esophagitis; M19.91 Primary osteoarthritis, unspecified site; G40.909 Epilepsy, unspecified, not intractable, without status epilepticus; K57.90 Diverticulosis of intestine, part unspecified, without perforation or abscess without bleeding; F31.9 Bipolar disorder, unspecified; E78.5 Hyperlipidemia, unspecified; D64.9 Anemia, unspecified; J44.9 Chronic obstructive pulmonary disease, unspecified; F41.9 Anxiety disorder, unspecified; H91.3 Deaf nonspeaking, not elsewhere classified; R48.0 Dyslexia and alexia; Z86.718 Personal history of other venous thrombosis and embolism; Z87.01 Personal history of pneumonia (recurrent); Z90.49 Acquired absence of other specified parts of digestive tract; Z90.710 Acquired absence of both cervix and uterus; Z96.651 Presence of right artificial knee joint; Z79.84 Long term (current) use of oral hypoglycemic drugs; Z79.899 Other long term (current) drug therapy; Z88.5 Allergy status to narcotic agent; Z88.2 Allergy status to sulfonamides; Z88.8 Allergy status to other drugs, medicaments and biological substances; Z87.891 Personal history of nicotine dependence
CPT/HCPCS: 36415; 36600; 71010; 71020; 71250; 74176; 74177; 80048; 80053; 81003; 82550; 82553; 82805; 83036; 83605; 83735; 84100; 84132; 84484; 85025; 85027; 85610; 85730; 87040; 87086; 87324; 88307; 93005; 94002; 94003; 94760; 96361; 96365; 99285

== ENCOUNTER 2017-01-09 11:47 | Emergency (ER) | payer MEDICARE, OTHER ==
[2017-01-09] MEDS ORDERED: RX INFO: IV CONTRAST WAS GIVEN 1 EACH MISC MISCELLANE PRN (12:41)
[2017-01-09] MEDS ORDERED: ONDANSETRON ODT 8 MG TAB.RAPDIS PO STA (12:41)
[2017-01-09] MEDS ORDERED: HYDROmorphone 1 MG/ML 1 ML SYRINGE IVP STA (12:41)
[2017-01-09] MEDS ORDERED: SODIUM CHLORIDE 0.9% 1,000 ML IV STA (12:41)
--- NOTE | 2017-01-09 13:11 | ED ---
General Adult HPI <Mulugeta Germain - Last Filed: 01/09/17 15:51> - General Source: patient, RN notes reviewed Mode of arrival: wheelchair Limitations: no limitations <Abner Reddy - Last Filed: 01/09/17 15:56> - General Chief complaint: Abdominal Pain Stated complaint: POSS RECTAL BLEEDING ABDOMINAL PAIN, POST OP Time Seen by Provider: 01/09/17 12:34 - History of Present Illness Initial comments: Patient is a 66-year-old female presented emergency room today with a chief complaint of abdominal pain times one month. She admits that over the last week pain has increased. She states having a sharp type pain in the lower abdomen. Patient does admit to a recent admission and surgery to the abdomen. She does admit to diarrhea. Patient denies any other complaints or symptoms. Patient denies any recent fever, chills, shortness of breath, chest pain, back pain, nausea or vomiting, numbness or tingling, dysuria or hematuria, constipation, headaches or visual changes, or any other complaints. (Abner Reddy) - Related Data Home Medications Medication Instructions Recorded Confirmed Albuterol Sulfate [Proair Hfa] 2 puff INHALATION RT-QID PRN 06/24/14 01/09/17 Donepezil [Aricept] 10 mg PO DAILY 02/07/15 01/09/17 Loratadine 10 mg PO QAM 06/28/16 01/09/17 Montelukast Sodium [Singulair] 10 mg PO DAILY 06/28/16 01/09/17 Omeprazole [PriLOSEC] 20 mg PO HS 06/28/16 01/09/17 Memantine HCl [Namenda Xr] 28 mg PO DAILY 07/15/16 01/09/17 risperiDONE [RisperDAL] 1 mg PO HS 08/16/16 01/09/17 Famotidine [Pepcid] 20 mg PO DAILY 09/03/16 01/09/17 glipiZIDE [Glucotrol] 5 mg PO DAILY 09/03/16 01/09/17 Sertraline [Zoloft] 50 mg PO QAM 11/22/16 01/09/17 traMADol HCL [Ultram] 50 mg PO BID PRN 11/22/16 01/09/17 Mirtazapine 7.5 mg PO HS 11/29/16 01/09/17 Previous Rx's Medication Instructions Recorded HYDROcodone/APAP 5-325MG [[place] 1 tab PO Q4HR PRN #40 tab 12/05/16 5-325] Ciprofloxacin HCl [Cipro] 500 mg PO Q12HR #20 day 01/09/17 Allergies Allergy/AdvReac Type Severity Reaction Status Date / Time codeine Allergy Rash/Hives Verified 01/09/17 13:37 lorazepam [From Ativan] Allergy Rash/Hives Verified 01/09/17 13:37 oxaprozin [From Daypro] Allergy Rash/Hives Verified 01/09/17 13:37 Sulfa (Sulfonamide Allergy Rash/Hives Verified 01/09/17 13:37 Antibiotics) baclofen AdvReac Unknown Psychotic Verified 01/09/17 13:37 Episode cyclobenzaprine HCl AdvReac Confusion Verified 01/09/17 13:37 [From Flexeril] Review of Systems ROS Other: All systems not noted in ROS Statement are negative. <Mulugeta Geramin - Last Filed: 01/09/17 15:51> ROS Other: All systems not noted in ROS Statement are negative. <Abner Reddy - Last Filed: 01/09/17 15:56> ROS Statement: Those systems with pertinent positive or pertinent negative responses have been documented in the HPI. Past Medical History Past Medical History: Asthma, Coronary Artery Disease (CAD), Heart Failure, Dementia, Diabetes Mellitus, Deep Vein Thrombosis (DVT), GERD/Reflux, Hyperlipidemia, Myocardial Infarction (CT), Osteoarthritis (OA), Pneumonia, Renal Disease, Seizure Disorder, Sleep Apnea/CPAP/BIPAP, Vascular Disorder Additional Past Medical History / Comment(s): Bronchial asthma, dementia, diabetes mellitus, hyperlipidemia, coronary artery disease with previous myocardial infarction, seizure disorder many years back and the patient has not been on seizure medication. Her last seizure was back in the 70s., sleep apnea , obstructive sleep apnea with suboptimal compliance to CPAP therapy, recent fall with a nasal fracture which has hindered our ability to put in a NG tube is still bowel syndrome, TMJ, chronic anemia, peripheral vascular disease, diverticulosis, cardiac murmur, remote history of DVT, diabetes mellitus, bipolar disorder Last Myocardial Infarction Date:: 1991 History of Any Multi-Drug Resistant Organisms: None Reported Past Surgical History: Adenoidectomy, Appendectomy, Bowel Resection, Cholecystectomy, Hernia Repair, Hysterectomy, Joint Replacement, Orthopedic Surgery, Tonsillectomy Additional Past Surgical History / Comment(s): partial colon resection with colostomy then reversal, SILVERIO KNEE ARTHROSCOPY,Right KNEE REPLACEMENT, EGDs and colonoscopies, lipomas off back, cyst off spine, eye duct surgery Past Anesthesia/Blood Transfusion Reactions: Previous Problems w/ Anesthesia, Motion Sickness Additional Past Anesthesia/Blood Transfusion Reaction / Comment(s): DIFFICULTY WAKING UP. CLAUSTERPHOBIC Past Psychological History: Anxiety, Bipolar Smoking Status: Never smoker Past Alcohol Use History: None Reported Past Drug Use History: None Reported - Past Family History Father Family Medical History: Cancer Additional Family Medical History / Comment(s): Father had lung cancer. Mother Family Medical History: Congestive Heart Failure (CHF), Dementia, Myocardial Infarction (CT) <Abner Reddy - Last Filed: 01/09/17 15:56> General Exam <Mulugeta Germain - Last Filed: 01/09/17 15:51> Limitations: no limitations <Abner Reddy - Last Filed: 01/09/17 15:56> - General Exam Comments Initial Comments: General: The patient is awake and alert, in no distress, and does not appear acutely ill. Eye: Pupils are equal, round and reactive to light, extra-ocular movements are intact. No nystagmus. There is normal conjunctiva bilaterally. No signs of icterus. Ears, nose, mouth and throat: There are moist mucous membranes and no oral lesions. Neck: The neck is supple, there is no tenderness or JVD. Cardiovascular: There is a regular rate and rhythm. No murmur, rub or gallop is appreciated. Respiratory: Lungs are clear to auscultation, respirations are non-labored, breath sounds are equal. No wheezes, stridor, rales, or rhonchi. Gastrointestinal: Patient has mild diffuse tenderness throughout the abdomen. No rebound. No guarding. No CVA tenderness. Musculoskeletal: Normal ROM, no tenderness. Strength 5/5. Sensation intact. Pulses equal bilaterally 2+. Neurological: A&O x 3. CN II-XII intact, There are no obvious motor or sensory deficits. Coordination appears grossly intact. Speech is normal. Skin: Skin is warm and dry and no rashes or lesions are noted. Psychiatric: Cooperative, appropriate mood & affect, normal judgment. (Abner Reddy) Course <Mulugeta Germain - Last Filed: 01/09/17 15:51> <Abner Reddy - Last Filed: 01/09/17 15:56> Vital Signs 01/09/17 01/09/17 11:53 13:43 Temperature 98.8 F 99.0 F Pulse Rate 90 85 Respiratory 18 16 Rate Blood Pressure 109/55 134/70 O2 Sat by Pulse 96 100 Oximetry - Reevaluation(s) Reevaluation #1: 01/09/17 15:52 I did personally do a [id number] evaluation the patient the patient is pain- free at this time her abdomen soft nontender to palpation or percussion. I do agree with the assessment and plan. (Mulugeta Germain) Medical Decision Making - Lab Data Result diagrams: 01/09/17 13:20 01/09/17 13:20 <Mulugeta Germain - Last Filed: 01/09/17 15:51> - Lab Data Result diagrams: 01/09/17 13:20 01/09/17 13:20 <Abner Reddy - Last Filed: 01/09/17 15:56> - Medical Decision Making Patient's labs been reviewed and does show 13,000 white count. Remaining labs are unremarkable. Patient's CT of the abdomen and pelvis does show thickened bladder wall. Also thinking is somewhat his. Results were discussed with the patient.Case discussed in detail with attending physician Dr. Germain. Patient will be placed on antibiotics. She states she is feeling better here in the emergency room has no complaints at this time. Will be discharged home. Ice to follow-up with the family doctor and surgeon over the next 1-2 days. (Abner Reddy) - Lab Data Lab Results 01/09/17 01/09/17 01/09/17 Range/Units 13:20 13:20 13:20 WBC 13.8 H (3.8-10.6) k/uL RBC 4.66 (3.80-5.40) m/uL Hgb 13.7 D (11.4-16.0) gm/dL Hct 40.5 (34.0-46.0) % MCV 86.9 (80.0-100.0) fL MCH 29.5 (25.0-35.0) pg MCHC 33.9 (31.0-37.0) g/dL RDW 13.1 (11.5-15.5) % Plt Count 196 (150-450) k/uL Neutrophils % 87 % Lymphocytes % 7 % Monocytes % 4 % Eosinophils % 1 % Basophils % 1 % Neutrophils # 12.0 H (1.3-7.7) k/uL Lymphocytes # 1.0 (1.0-4.8) k/uL Monocytes # 0.5 (0-1.0) k/uL Eosinophils # 0.1 (0-0.7) k/uL Basophils # 0.1 (0-0.2) k/uL Sodium 140 (137-145) mmol/L Potassium 4.8 (3.5-5.1) mmol/L Chloride 106 (98-107) mmol/L Carbon Dioxide 22 (22-30) mmol/L Anion Gap 12 mmol/L BUN 17 (7-17) mg/dL Creatinine 0.90 (0.52-1.04) mg/dL Est GFR (MDRD) Af Amer >60 (>60 ml/min/1.73 sqM) Est GFR (MDRD) Non-Af >60 (>60 ml/min/1.73 sqM) Glucose 97 (74-99) mg/dL Plasma Lactic Acid Artie 1.0 (0.7-2.0) mmol/L Calcium 9.5 (8.4-10.2) mg/dL Total Bilirubin 0.5 (0.2-1.3) mg/dL AST 35 (14-36) U/L ALT 35 (9-52) U/L Alkaline Phosphatase 119 (38-126) U/L Total Protein 6.6 (6.3-8.2) g/dL Albumin 3.9 (3.5-5.0) g/dL Amylase 72 (30-110) U/L Lipase 188 (23-300) U/L Urine Color Urine Appearance (Clear) Urine pH (5.0-8.0) Ur Specific [place] (1.001-1.035) Urine Protein (Negative) Urine Glucose (UA) (Negative) Urine Ketones (Negative) Urine Blood (Negative) Urine Nitrite (Negative) Urine Bilirubin (Negative) Urine Urobilinogen (<2.0) mg/dL Ur Leukocyte Esterase (Negative) 08/09/17 Range/Units 15:08 WBC (3.8-10.6) k/uL RBC (3.80-5.40) m/uL Hgb (11.4-16.0) gm/dL Hct (34.0-46.0) % MCV (80.0-100.0) fL MCH (25.0-35.0) pg MCHC (31.0-37.0) g/dL RDW (11.5-15.5) % Plt Count (150-450) k/uL Neutrophils % % Lymphocytes % % Monocytes % % Eosinophils % % Basophils % % Neutrophils # (1.3-7.7) k/uL Lymphocytes # (1.0-4.8) k/uL Monocytes # (0-1.0) k/uL Eosinophils # (0-0.7) k/uL Basophils # (0-0.2) k/uL Sodium (137-145) mmol/L Potassium (3.5-5.1) mmol/L Chloride (98-107) mmol/L Carbon Dioxide (22-30) mmol/L Anion Gap mmol/L BUN (7-17) mg/dL Creatinine (0.52-1.04) mg/dL Est GFR (MDRD) Af Amer (>60 ml/min/1.73 sqM) Est GFR (MDRD) Non-Af (>60 ml/min/1.73 sqM) Glucose (74-99) mg/dL Plasma Lactic Acid Artie (0.7-2.0) mmol/L Calcium (8.4-10.2) mg/dL Total Bilirubin (0.2-1.3) mg/dL AST (14-36) U/L ALT (9-52) U/L Alkaline Phosphatase (38-126) U/L Total Protein (6.3-8.2) g/dL Albumin (3.5-5.0) g/dL Amylase (30-110) U/L Lipase (23-300) U/L Urine Color Yellow Urine Appearance Clear (Clear) Urine pH 6.5 (5.0-8.0) Ur Specific [place] 1.042 H (1.001-1.035) Urine Protein Negative (Negative) Urine Glucose (UA) Negative (Negative) Urine Ketones Negative (Negative) Urine Blood Negative (Negative) Urine Nitrite Negative (Negative) Urine Bilirubin Negative (Negative) Urine Urobilinogen <2.0 (<2.0) mg/dL Ur Leukocyte Esterase Negative (Negative) Disposition <Mulugeta Germain - Last Filed: 01/09/17 15:51> Time of Disposition: 15:56 <Abner Reddy - Last Filed: 01/09/17 15:56> Clinical Impression: Abdominal pain Disposition: HOME SELF-CARE Condition: Stable Instructions: Abdominal Pain (ED) Additional Instructions: Please follow-up with the family doctor/general surgeon over the next 1-2 days per please use antibiotic as prescribed and return here to the emergency room if any symptoms increase or worsen or for any other concerns. Prescriptions: Ciprofloxacin HCl [Cipro] 500 mg PO Q12HR #20 day Referrals: Jerry Golden DO [Primary Care Provider] - 1-2 days
[2017-01-09 13:53] LABS: ALT 35 U/L (9-52); AST 35 U/L (14-36); Alkaline Phosphatase 119 U/L (38-126); Amylase 72 U/L (30-110); Anion Gap 12 mmol/L; Blood Urea Nitrogen 17 mg/dL (7-17); Calcium 9.5 mg/dL (8.4-10.2); Carbon Dioxide 22 mmol/L (22-30); Chloride 106 mmol/L (98-107); Glucose 97 mg/dL (74-99); Non-African American GFR(MDRD) >60 (>60 ml/min/1.73 sqM); Potassium 4.8 mmol/L (3.5-5.1); Sodium 140 mmol/L (137-145); Total Bilirubin 0.5 mg/dL (0.2-1.3); Total Protein 6.6 g/dL (6.3-8.2)
[2017-01-09 13:55] LABS: Basophils # (A) 0.1 k/uL (0-0.2); Basophils % (A) 1 %; CHCM 33.4; Eosinophils # (A) 0.1 k/uL (0-0.7); Eosinophils % (A) 1 %; HCT 40.5 % (34.0-46.0); HDW 2.64; Luc # (Auto) 0.08; Luc % (Auto) 1; Lymphocytes % (A) 7 %; MCH 29.5 pg (25.0-35.0); MCHC 33.9 g/dL (31.0-37.0); MCV 86.9 fL (80.0-100.0); Mean Platelet Volume 6.9; Monocytes # (A) 0.5 k/uL (0-1.0); Monocytes % (A) 4 %; Neutrophils % (A) 87 %; RBC 4.66 m/uL (3.80-5.40); RDW 13.1 % (11.5-15.5); WBC 13.8 k/uL (3.8-10.6); WBC (Perox) 14.58
[2017-01-09 13:58] LABS: HGB 13.7 gm/dL (11.4-16.0)
--- NOTE | 2017-01-09 14:42 | CT ---
EXAMINATION TYPE: CT abdomen pelvis w con DATE OF EXAM: 01/09/2017 COMPARISON: Prior CT abdomen pelvis 11/29/2016 HISTORY: lower abd pain CT DLP: 429.4 mGycm Automated exposure control for dose reduction was used. TECHNIQUE: Helical acquisition of images from the lung bases through the pelvis have been completed. CONTRAST: Performed without Oral Contrast and with IV Contrast, patient injected with 100 mL of Omnipaque 300. FINDINGS: The distal esophagus shows wall thickening which is indeterminate, there may be small hiata l hernia. LUNG BASES: Calcified granuloma present in the perihilar location on the right. No pleural or pericar dial effusion. AORTA: No significant abnormality is appreciated. LIVER/GB: Patient is post cholecystectomy, some prominence of the biliary ducts is likely due to post cholecystectomy change. PANCREAS: No significant abnormality is seen. SPLEEN: No significant abnormality is seen. ADRENALS: No significant abnormality is seen. KIDNEYS: No significant abnormality is seen. REPRODUCTIVE ORGANS: Not seen. BOWEL: Postop changes are present. The previously identified abnormal jejunal loops are no longer se en. Some scattered diverticular change present. FREE AIR: No Free Air visible. ASCITES: None visible. PELVIC ADENOPATHY: None visualized. RETROPERITONEAL ADENOPATHY: No Retroperitoneal Adenopathy visible. URINARY BLADDER: Urinary bladder shows a somewhat thickened wall. Correlate to exclude cystitis. OSSEOUS STRUCTURES: Stable, there is a scoliosis, degenerative disc changes in the visualized spine. IMPRESSION: INTERVAL POSTOP CHANGE. CORRELATE TO EXCLUDE ESOPHAGITIS. DIVERTICULOSIS. CORRELATE TO EXCLUDE CYSTIT IS. ADDITIONAL FINDINGS ABOVE.
[2017-01-09 15:41] LABS: Appearance,Urine Clear (Clear); Bilirubin,Urine Negative (Negative); Glucose,Urine (UA) Negative (Negative); Ketones,Urine Negative (Negative); Leukocyte Esterase,Urine Negative (Negative); Nitrite,Urine Negative (Negative); PH, Urine 6.5 (5.0-8.0); Protein,Urine Negative (Negative); Specific Gravity,Urine 1.042 (1.001-1.035); UA Billing (MACRO vs. MICRO) CHEM; Urobilinogen,Urine <2.0 mg/dL (<2.0)
[2017-01-09 16:03] VITALS: BP 119/56; PULSE 77; RESP 18; TEMP 96.6
== END 2017-01-09 16:05 | disposition home or self-care (01) ==
LOC: EC 11:47
DX: R10.84 Generalized abdominal pain (principal); R19.7 Diarrhea, unspecified; J45.909 Unspecified asthma, uncomplicated; F03.90 Unspecified dementia, unspecified severity, without behavioral disturbance, psychotic disturbance, mood disturbance, and anxiety; E11.9 Type 2 diabetes mellitus without complications; K21.9 Gastro-esophageal reflux disease without esophagitis; F31.9 Bipolar disorder, unspecified; F41.9 Anxiety disorder, unspecified; Z90.49 Acquired absence of other specified parts of digestive tract; Z98.890 Other specified postprocedural states; Z88.5 Allergy status to narcotic agent; Z88.2 Allergy status to sulfonamides; Z88.1 Allergy status to other antibiotic agents; Z88.8 Allergy status to other drugs, medicaments and biological substances; Z79.84 Long term (current) use of oral hypoglycemic drugs; Z79.899 Other long term (current) drug therapy
CPT/HCPCS: 36415; 80053; 82150; 83605; 83690; 85025; 81003; 87040; 74177; 99284; 96374; 96361 ×2; J1170; Q9967

== ENCOUNTER 2017-03-11 11:03 | Inpatient (IN) | payer MEDICARE, OTHER ==
[2017-03-11] MEDS ORDERED: RX INFO: IV CONTRAST WAS GIVEN 1 EACH MISC MISCELLANE PRN (11:55)
[2017-03-11] MEDS ORDERED: METOCLOPRAMIDE 5 MG/ML 2 ML VIAL IVP STA (11:55)
[2017-03-11] MEDS ORDERED: SODIUM CHLORIDE 0.9% 1,000 ML IV STA ×2 (11:55)
[2017-03-11] MEDS ORDERED: HYDROmorphone 0.5 MG/0.5 ML SYRINGE IVP STA (11:55)
[2017-03-11] MEDS ORDERED: AMPICILLIN-SULBACTAM 3 GM in SODIUM CHLORIDE 0.9% 100 ML IVPB STA (11:55)
[2017-03-11 13:36] LABS: Basophils % (A) 0 %; CH 28.5; CHCM 32.4; Eosinophils # (A) 0.2 k/uL (0-0.7); Eosinophils % (A) 1 %; HCT 43.4 % (34.0-46.0); HDW 2.29; Luc # (Auto) 0.07; Luc % (Auto) 0; Lymphocytes # (A) 0.5 k/uL (1.0-4.8); Lymphocytes % (A) 3 %; MCH 28.4 pg (25.0-35.0); MCHC 32.3 g/dL (31.0-37.0); MCV 88.1 fL (80.0-100.0); Mean Platelet Volume 6.8; Monocytes # (A) 0.6 k/uL (0-1.0); Monocytes % (A) 4 %; Neutrophils # (A) 15.6 k/uL (1.3-7.7); Neutrophils % (A) 92 %; RBC 4.93 m/uL (3.80-5.40); RDW 13.3 % (11.5-15.5); WBC (Perox) 17.99
[2017-03-11 13:49] LABS: ALT 25 U/L (9-52); AST 23 U/L (14-36); Alkaline Phosphatase 123 U/L (38-126); Amylase 231 U/L (30-110); Anion Gap 11 mmol/L; Blood Urea Nitrogen 17 mg/dL (7-17); Calcium 8.9 mg/dL (8.4-10.2); Carbon Dioxide 20 mmol/L (22-30); Chloride 104 mmol/L (98-107); Glucose 97 mg/dL (74-99); Non-African American GFR(MDRD) >60 (>60 ml/min/1.73 sqM); Potassium 4.1 mmol/L (3.5-5.1); Sodium 135 mmol/L (137-145); Total Bilirubin 0.6 mg/dL (0.2-1.3); Total Protein 6.1 g/dL (6.3-8.2)
--- NOTE | 2017-03-11 13:56 | XR ---
EXAMINATION TYPE: XR chest 1V portable DATE OF EXAM: 03/11/2017 COMPARISON: Prior chest x-ray 12/01/2016 HISTORY: Central line placement TECHNIQUE: Single frontal view of the chest is obtained. FINDINGS: There is a right jugular central venous catheter, distal tip is coursing into the right at rium. No evident pneumothorax or pleural effusion. NG tube, endotracheal tube have been removed. IMPRESSION: No evident complication status post central venous catheter placement. Distal tip in the right atrium. Exam is rotated.
--- NOTE | 2017-03-11 14:12 | ED ---
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 She is complaining about abdominal pain for the last 2 days she has a history of multiple abdominal surgeries she has major part of her colon removed. She also had other abdominal surgeries sister do not recall the full detail. She had a bit of a fever today positive nausea no vomiting no diarrhea constipation no frequency urgency dysuria no symptoms of TIA or CVA. - Related Data Home Medications Medication Instructions Recorded Confirmed Albuterol Sulfate [Proair Hfa] 2 puff INHALATION RT-QID PRN 06/24/14 03/11/17 Donepezil [Aricept] 10 mg PO DAILY 02/07/15 03/11/17 Loratadine 10 mg PO QAM 06/28/16 03/11/17 Montelukast Sodium [Singulair] 10 mg PO DAILY 06/28/16 03/11/17 Omeprazole [PriLOSEC] 20 mg PO HS 06/28/16 03/11/17 Memantine HCl [Namenda Xr] 28 mg PO DAILY 07/15/16 03/11/17 risperiDONE [RisperDAL] 1 mg PO HS 08/16/16 03/11/17 Famotidine [Pepcid] 20 mg PO DAILY 09/03/16 03/11/17 glipiZIDE [Glucotrol] 5 mg PO DAILY 09/03/16 03/11/17 Sertraline [Zoloft] 50 mg PO QAM 11/22/16 03/11/17 traMADol HCL [Ultram] 50 mg PO BID PRN 11/22/16 03/11/17 Mirtazapine 7.5 mg PO HS 11/29/16 03/11/17 Previous Rx's Medication Instructions Recorded HYDROcodone/APAP 5-325MG [[place] 1 tab PO Q4HR PRN #40 tab 12/05/16 5-325] Allergies Allergy/AdvReac Type Severity Reaction Status Date / Time codeine Allergy Rash/Hives Verified 03/11/17 11:16 lorazepam [From Ativan] Allergy Rash/Hives Verified 03/11/17 11:16 oxaprozin [From Daypro] Allergy Rash/Hives Verified 03/11/17 11:16 Sulfa (Sulfonamide Allergy Rash/Hives Verified 03/11/17 11:16 Antibiotics) baclofen AdvReac Unknown Psychotic Verified 03/11/17 11:16 Episode cyclobenzaprine HCl AdvReac Confusion Verified 03/11/17 11:16 [From Flexeril] Review of Systems ROS Statement: Those systems with pertinent positive or pertinent negative responses have been documented in the HPI. ROS Other: All systems not noted in ROS Statement are negative. Past Medical History Past Medical History: Asthma, Coronary Artery Disease (CAD), Heart Failure, Dementia, Diabetes Mellitus, Deep Vein Thrombosis (DVT), GERD/Reflux, Hyperlipidemia, Myocardial Infarction (MA), Osteoarthritis (OA), Pneumonia, Renal Disease, Seizure Disorder, Sleep Apnea/CPAP/BIPAP, Vascular Disorder Additional Past Medical History / Comment(s): Bronchial asthma, dementia, diabetes mellitus, hyperlipidemia, coronary artery disease with previous myocardial infarction, seizure disorder many years back and the patient has not been on seizure medication. Her last seizure was back in the 70s., sleep apnea , obstructive sleep apnea with suboptimal compliance to CPAP therapy, recent fall with a nasal fracture which has hindered our ability to put in a NG tube is still bowel syndrome, TMJ, chronic anemia, peripheral vascular disease, diverticulosis, cardiac murmur, remote history of DVT, diabetes mellitus, bipolar disorder Last Myocardial Infarction Date:: 1991 History of Any Multi-Drug Resistant Organisms: None Reported Past Surgical History: Adenoidectomy, Appendectomy, Bowel Resection, Cholecystectomy, Hernia Repair, Hysterectomy, Joint Replacement, Orthopedic Surgery, Tonsillectomy Additional Past Surgical History / Comment(s): partial colon resection with colostomy then reversal, SILVERIO KNEE ARTHROSCOPY,Right KNEE REPLACEMENT, EGDs and colonoscopies, lipomas off back, cyst off spine, eye duct surgery Past Anesthesia/Blood Transfusion Reactions: Previous Problems w/ Anesthesia, Motion Sickness Additional Past Anesthesia/Blood Transfusion Reaction / Comment(s): DIFFICULTY WAKING UP. CLAUSTERPHOBIC Past Psychological History: Anxiety, Bipolar Smoking Status: Never smoker Past Alcohol Use History: None Reported Past Drug Use History: None Reported - Past Family History Father Family Medical History: Cancer Additional Family Medical History / Comment(s): Father had lung cancer. Mother Family Medical History: Congestive Heart Failure (CHF), Dementia, Myocardial Infarction (MA) General Exam Limitations: no limitations Course Vital Signs 03/11/17 03/11/17 03/11/17 11:05 13:32 13:41 Temperature 100.5 F H Pulse Rate 83 102 H 95 Respiratory 18 18 18 Rate Blood Pressure 139/66 113/71 147/67 O2 Sat by Pulse 95 96 94 L Oximetry 03/11/17 03/11/17 14:42 15:53 Temperature 98.4 F Pulse Rate 99 100 Respiratory 98 H 18 Rate Blood Pressure 149/64 138/62 O2 Sat by Pulse 98 Oximetry patient was reassessed at term 1550 white count is quite elevated dermis 17 with a left shift chest x-ray is unremarkable she did not report protein is 187 amylase 231 apart from that compressive metabolic panel looks tired and CT report is pending. IV access was very poor in spite of for afterwards and attempts we couldn't multiply doorstop ST IV and actually right internal jugular central line was established ,(20 obtained blood sample as well as fluid resuscitation and antibiotics were started Approximately at 1717 radiology called me and informed me about 6 cm area of abscess. In the distal colon and some fluids in the pelvis. After that I spoke with the Dr. Vince Clarke is covering Dr. Michael keen he agreed with the admission under Dr. Leal and consult interventional radiology for possible CT-guided drainage of the abscess - Reevaluation(s) Reevaluation #1: ct of the abdomen and pelvis is still pending at 1656 03/11/17 16:56 Procedures - Central Line Placement Right IJ Consent Obtained: verbal consent Time Out Performed: Yes Patient Placed on Monitor/Pulse Ox: Yes Prep: mask Central Line Prep: Povidone-Iodine 1% Local Anesthesia Used: Lidocaine 1% Amount of Anesthesia Used (mls): 3 Ultrasound Used for Placement: Yes Central Line Lumen Inserted: triple Bloods Obtained for Lab: Yes Central Line Position: good blood return Dressing Applied: Tegaderm Post Procedure X-Ray: tip of catheter in good position Patient Tolerated Procedure: well Complications: none (patient tolerated procedure well, there were no complications) Medical Decision Making - Lab Data Result diagrams: 03/11/17 13:23 03/11/17 13:23 Lab Results 03/11/17 03/11/17 03/11/17 Range/Units 13:23 13:23 13:23 WBC 17.0 H (3.8-10.6) k/uL RBC 4.93 (3.80-5.40) m/uL Hgb 14.0 (11.4-16.0) gm/dL Hct 43.4 (34.0-46.0) % MCV 88.1 (80.0-100.0) fL MCH 28.4 (25.0-35.0) pg MCHC 32.3 (31.0-37.0) g/dL RDW 13.3 (11.5-15.5) % Plt Count 137 L (150-450) k/uL Neutrophils % 92 % Lymphocytes % 3 % Monocytes % 4 % Eosinophils % 1 % Basophils % 0 % Neutrophils # 15.6 H (1.3-7.7) k/uL Lymphocytes # 0.5 L (1.0-4.8) k/uL Monocytes # 0.6 (0-1.0) k/uL Eosinophils # 0.2 (0-0.7) k/uL Basophils # 0.0 (0-0.2) k/uL Sodium 135 L (137-145) mmol/L Potassium 4.1 (3.5-5.1) mmol/L Chloride 104 (98-107) mmol/L Carbon Dioxide 20 L (22-30) mmol/L Anion Gap 11 mmol/L BUN 17 (7-17) mg/dL Creatinine 0.90 (0.52-1.04) mg/dL Est GFR (MDRD) Af Amer >60 (>60 ml/min/1.73 sqM) Est GFR (MDRD) Non-Af >60 (>60 ml/min/1.73 sqM) Glucose 97 (74-99) mg/dL Plasma Lactic Acid Artie 1.5 (0.7-2.0) mmol/L Calcium 8.9 (8.4-10.2) mg/dL Total Bilirubin 0.6 (0.2-1.3) mg/dL AST 23 (14-36) U/L ALT 25 (9-52) U/L Alkaline Phosphatase 123 (38-126) U/L C-Reactive Protein 189.7 H (<10.0) mg/L Total Protein 6.1 L (6.3-8.2) g/dL Albumin 3.4 L (3.5-5.0) g/dL Amylase 231 H (30-110) U/L Lipase 122 (23-300) U/L Urine Color Urine Appearance (Clear) Urine pH (5.0-8.0) Ur Specific [place] (1.001-1.035) Urine Protein (Negative) Urine Glucose (UA) (Negative) Urine Ketones (Negative) Urine Blood (Negative) Urine Nitrite (Negative) Urine Bilirubin (Negative) Urine Urobilinogen (<2.0) mg/dL Ur Leukocyte Esterase (Negative) Urine RBC (0-5) /hpf Urine WBC (0-5) /hpf Ur Squamous Epith Cells (0-4) /hpf Urine Mucus (None) /hpf 03/11/17 Range/Units 15:18 WBC (3.8-10.6) k/uL RBC (3.80-5.40) m/uL Hgb (11.4-16.0) gm/dL Hct (34.0-46.0) % MCV (80.0-100.0) fL MCH (25.0-35.0) pg MCHC (31.0-37.0) g/dL RDW (11.5-15.5) % Plt Count (150-450) k/uL Neutrophils % % Lymphocytes % % Monocytes % % Eosinophils % % Basophils % % Neutrophils # (1.3-7.7) k/uL Lymphocytes # (1.0-4.8) k/uL Monocytes # (0-1.0) k/uL Eosinophils # (0-0.7) k/uL Basophils # (0-0.2) k/uL Sodium (137-145) mmol/L Potassium (3.5-5.1) mmol/L Chloride (98-107) mmol/L Carbon Dioxide (22-30) mmol/L Anion Gap mmol/L BUN (7-17) mg/dL Creatinine (0.52-1.04) mg/dL Est GFR (MDRD) Af Amer (>60 ml/min/1.73 sqM) Est GFR (MDRD) Non-Af (>60 ml/min/1.73 sqM) Glucose (74-99) mg/dL Plasma Lactic Acid Artie (0.7-2.0) mmol/L Calcium (8.4-10.2) mg/dL Total Bilirubin (0.2-1.3) mg/dL AST (14-36) U/L ALT (9-52) U/L Alkaline Phosphatase (38-126) U/L C-Reactive Protein (<10.0) mg/L Total Protein (6.3-8.2) g/dL Albumin (3.5-5.0) g/dL Amylase (30-110) U/L Lipase (23-300) U/L Urine Color Yellow Urine Appearance Clear (Clear) Urine pH 6.0 (5.0-8.0) Ur Specific [place] 1.019 (1.001-1.035) Urine Protein Trace H (Negative) Urine Glucose (UA) Negative (Negative) Urine Ketones Negative (Negative) Urine Blood Moderate H (Negative) Urine Nitrite Negative (Negative) Urine Bilirubin Negative (Negative) Urine Urobilinogen <2.0 (<2.0) mg/dL Ur Leukocyte Esterase Negative (Negative) Urine RBC 4 (0-5) /hpf Urine WBC 2 (0-5) /hpf Ur Squamous Epith Cells <1 (0-4) /hpf Urine Mucus Rare H (None) /hpf Disposition Clinical Impression: Abdominal pain Disposition: ADMITTED IP TO THIS HOSP Condition: Fair Referrals: Jerry Golden DO [Primary Care Provider] - 1-2 days
[2017-03-11 14:27] LABS: C Reactive Protein 189.7 mg/L (<10.0)
[2017-03-11 15:23] LABS: Appearance,Urine Clear (Clear); Bilirubin,Urine Negative (Negative); Glucose,Urine (UA) Negative (Negative); Ketones,Urine Negative (Negative); Leukocyte Esterase,Urine Negative (Negative); Mucus,Urine Rare /hpf; Nitrite,Urine Negative (Negative); Particle Count 3147; Protein,Urine Trace (Negative); RBC,Urine 4 /hpf (0-5); Specific Gravity,Urine 1.019 (1.001-1.035); Squamous Epithelial Cell,Urine <1 /hpf (0-4); UA Billing (MACRO vs. MICRO) MICRO; Urobilinogen,Urine <2.0 mg/dL (<2.0); WBC,Urine 2 /hpf (0-5)
--- NOTE | 2017-03-11 17:20 | CT ---
EXAMINATION TYPE: CT abdomen pelvis w con DATE OF EXAM: 03/11/2017 COMPARISON: 01/09/2017 HISTORY: Abdominal pain CT DLP: 511.8 mGycm Automated exposure control for dose reduction was used. TECHNIQUE: Helical acquisition of images was performed from the lung bases through the pelvis. CONTRAST: Performed without Oral Contrast and with IV Contrast, patient injected with 100 mL of Omnipaque 300. FINDINGS: There is some patchy infiltrate and atelectasis at the lung bases. There is a hiatal hernia. There are clips from cholecystectomy. Liver shows no focal defect. There is mild ectasia of the commo n bile duct measures 1 cm. Intrahepatic bile ducts are not dilated. Spleen appears normal. There is n o pancreatic mass. There is no adrenal mass. Kidneys show satisfactory contrast opacification. There is no hydronephrosi s. There is retained fecal material in the left colon. There are multiple sigmoid diverticula. There is fat stranding in the pelvis. There is a 6 x 5 cm complex mass in the pelvis anterior to the sigmoi d colon with fluid level. The sigmoid colon and rectum and descending colon have formed stool. This f luid level probably indicates a large peridiverticular abscess. There are spondylotic changes in the lumbar spine. The bladder distends smoothly. IMPRESSION: INFLAMMATORY CHANGES IN THE PELVIS. THERE ARE FINDINGS SUGGESTIVE OF A 6 CM PERIDIVERTICULAR ABSCESS ANTERIOR TO THE MID SIGMOID COLON. THIS APPEARS NEW COMPARED TO THE OLD CT SCAN. THIS EXAM WAS DISCUSSED WITH ER PHYSICIAN AT 5:15 PM.
[2017-03-11] MEDS ORDERED: ONDANSETRON 4 MG/2 ML VIAL IVP PRN (18:56)
[2017-03-11] MEDS ORDERED: NALOXONE 0.4 MG/ML 1 ML VIAL IV PRN (18:56)
[2017-03-11] MEDS ORDERED: traMADol 50 MG TAB PO PRN (19:06)
[2017-03-11] MEDS ORDERED: HYDROcodone/APAP 5-325MG 1 EACH TAB PO PRN (19:11)
[2017-03-11] MEDS: MIRTAZAPINE 15 MG TAB PO SCH (21:38)
[2017-03-11] MEDS: metroNIDAZOLE 500 MG TAB PO SCH (21:38)
[2017-03-11] MEDS: PANTOPRAZOLE 40 MG TABLET PO SCH (21:38)
[2017-03-11] MEDS: risperiDONE 1 MG TAB PO SCH (21:38)
[2017-03-12] MEDS ORDERED: metroNIDAZOLE-NS PMX 500 MG in SALINE 1 100ML.BAG IVPB SCH
[2017-03-12] MEDS: PIPERACILLIN-TAZOBACTAM 3.375 GM in DEXTROSE/WATER 1 50ML.BAG IVPB SCH ×4 (00:56→23:43)
[2017-03-12 07:15] LABS: Glucose,Whole Blood 108 mg/dL (75-99)
[2017-03-12 08:18] LABS: Basophils % (A) 0 %; CH 29.1; CHCM 32.2; Eosinophils % (A) 0 %; HCT 39.3 % (34.0-46.0); HDW 2.22; HGB 12.2 gm/dL (11.4-16.0); Luc # (Auto) 0.09; Luc % (Auto) 1; Lymphocytes # (A) 0.3 k/uL (1.0-4.8); Lymphocytes % (A) 2 %; MCH 28.2 pg (25.0-35.0); MCHC 31.1 g/dL (31.0-37.0); MCV 90.6 fL (80.0-100.0); Mean Platelet Volume 7.3; Monocytes # (A) 0.5 k/uL (0-1.0); Monocytes % (A) 3 %; Neutrophils % (A) 94 %; RBC 4.33 m/uL (3.80-5.40); RDW 14.3 % (11.5-15.5); WBC 13.9 k/uL (3.8-10.6); WBC (Perox) 15.23
[2017-03-12] MEDS: SODIUM CHLORIDE 0.9% 1,000 ML IV SCH ×5 (08:35→19:38)
[2017-03-12 08:37] LABS: ALT 131 U/L (9-52); AST 76 U/L (14-36); Alkaline Phosphatase 161 U/L (38-126); Anion Gap 8 mmol/L; Blood Urea Nitrogen 15 mg/dL (7-17); Calcium 8.2 mg/dL (8.4-10.2); Carbon Dioxide 20 mmol/L (22-30); Chloride 108 mmol/L (98-107); Glucose 106 mg/dL (74-99); Non-African American GFR(MDRD) 60 (>60 ml/min/1.73 sqM); Potassium 3.9 mmol/L (3.5-5.1); Sodium 136 mmol/L (137-145); Total Bilirubin 0.7 mg/dL (0.2-1.3)
[2017-03-12] MEDS ORDERED: FAMOTIDINE 20 MG TAB PO SCH (09:00)
--- NOTE | 2017-03-12 09:14 | P.GSHP ---
History of Present Illness H&P Date: 03/12/17 Chief Complaint: Abdominal pain 66-year-old female presented on the day of admission to the emergency room with a care provider after being noted to be experiencing abdominal pain onset 2 days prior. Patient has significant tenderness involving the left lower quadrant. Patient also has a history of diverticulitis with prior sigmoid resection Patient has a history of dementia and Parkinson's. Patient has limited recall of medical history. 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 There is significant tenderness to the left lower quadrant white count was elevated tachycardic heart rate in the 90s stenosis been started on IV Zosyn with a consult for interventional radiology possible percutaneous drain for the abscess to be evaluated - Review of Systems Comment: Not able to adequately obtain poor recall Past Medical History Past Medical History: Asthma, Coronary Artery Disease (CAD), Heart Failure, Dementia, Diabetes Mellitus, Deep Vein Thrombosis (DVT), GERD/Reflux, Hyperlipidemia, Myocardial Infarction (SC), Osteoarthritis (OA), Pneumonia, Renal Disease, Seizure Disorder, Sleep Apnea/CPAP/BIPAP, Vascular Disorder Additional Past Medical History / Comment(s): Bronchial asthma, dementia, diabetes mellitus, hyperlipidemia, coronary artery disease with previous myocardial infarction, seizure disorder many years back and the patient has not been on seizure medication. Her last seizure was back in the 70s., sleep apnea , obstructive sleep apnea with suboptimal compliance to CPAP therapy, recent fall with a nasal fracture which has hindered our ability to put in a NG tube is still bowel syndrome, TMJ, chronic anemia, peripheral vascular disease, diverticulosis, cardiac murmur, remote history of DVT, diabetes mellitus, bipolar disorder Last Myocardial Infarction Date:: 1991 History of Any Multi-Drug Resistant Organisms: None Reported Past Surgical History: Adenoidectomy, Appendectomy, Bowel Resection, Cholecystectomy, Hernia Repair, Hysterectomy, Joint Replacement, Orthopedic Surgery, Tonsillectomy Additional Past Surgical History / Comment(s): partial colon resection with colostomy then reversal, SILVERIO KNEE ARTHROSCOPY,Right KNEE REPLACEMENT, EGDs and colonoscopies, lipomas off back, cyst off spine, eye duct surgery Past Anesthesia/Blood Transfusion Reactions: Previous Problems w/ Anesthesia, Motion Sickness Additional Past Anesthesia/Blood Transfusion Reaction / Comment(s): DIFFICULTY WAKING UP. CLAUSTERPHOBIC Past Psychological History: Anxiety, Bipolar Additional Psychological History / Comment(s): DYSLEXIA but is able to read and write with some difficulty. Pt resides with her sisters, Reny who is also her legal guardian and other sister Michelle. They are her caretakers. Pt uses a walker to ambulate. She does not drive, Michelle takes her to appts. pt also has dementia and is deaf Smoking Status: Never smoker Past Alcohol Use History: None Reported Additional Past Alcohol Use History / Comment(s): STARTED SMOKNG AT AGE 16, SMOKED 1 CIG PER DAY QUIT 1982 Past Drug Use History: None Reported - Past Family History Father Family Medical History: Cancer Additional Family Medical History / Comment(s): Father had lung cancer. Mother Family Medical History: Congestive Heart Failure (CHF), Dementia, Myocardial Infarction (SC) Medications and Allergies Home Medications Medication Instructions Recorded Confirmed Type Albuterol Sulfate [Proair Hfa] 2 puff INHALATION RT-QID PRN 06/24/14 03/11/17 History Donepezil [Aricept] 10 mg PO DAILY 02/07/15 03/11/17 History Loratadine 10 mg PO QAM 06/28/16 03/11/17 History Montelukast Sodium [Singulair] 10 mg PO DAILY 06/28/16 03/11/17 History Omeprazole [PriLOSEC] 20 mg PO HS 06/28/16 03/11/17 History Memantine HCl [Namenda Xr] 28 mg PO DAILY 07/15/16 03/11/17 History risperiDONE [RisperDAL] 1 mg PO HS 08/16/16 03/11/17 History Famotidine [Pepcid] 20 mg PO DAILY 09/03/16 03/11/17 History glipiZIDE [Glucotrol] 5 mg PO DAILY 09/03/16 03/11/17 History Sertraline [Zoloft] 50 mg PO QAM 11/22/16 03/11/17 History traMADol HCL [Ultram] 50 mg PO BID PRN 11/22/16 03/11/17 History Mirtazapine 7.5 mg PO HS 11/29/16 03/11/17 History HYDROcodone/APAP 5-325MG [[place] 1 tab PO Q4HR PRN #40 tab 12/05/16 03/11/17 Rx 5-325] Allergies Allergy/AdvReac Type Severity Reaction Status Date / Time codeine Allergy Rash/Hives Verified 03/11/17 11:16 lorazepam [From Ativan] Allergy Rash/Hives Verified 03/11/17 11:16 oxaprozin [From Daypro] Allergy Rash/Hives Verified 03/11/17 11:16 Sulfa (Sulfonamide Allergy Rash/Hives Verified 03/11/17 11:16 Antibiotics) baclofen AdvReac Unknown Psychotic Verified 03/11/17 11:16 Episode cyclobenzaprine HCl AdvReac Confusion Verified 03/11/17 11:16 [From Flexeril] Surgical - Exam Vital Signs Temp Pulse Resp BP Pulse Ox 100.5 F H 83 18 139/66 95 03/11/17 11:05 03/11/17 11:05 03/11/17 11:05 03/11/17 11:05 03/11/17 11:05 GENERAL APPEARANCE: 66-year-old female patient is arousable to verbal stimuli resting in bed oriented to self and place VITAL SIGNS: Reviewed HEENT: Head is normocephalic and atraumatic. Pupils are equal and reactive. The nares are patent. Oropharynx is clear without lesions. NECK: Supple without lymphadenopathy. Traches midline. HEART: S1, S2. Regular rate and rhythm. No murmur noted LUNGS: No crackles or wheezes are heard. Diminished at the bases sats are 98% on 2 L ABDOMEN: Soft, positive tenderness with light palpitation facial grimacing to the left lower quadrant, nondistended with good bowel sounds. No peritoneal signs. No palpable organomegaly or masses. Well-healed surgical scar to the abdominal wall EXTREMITIES: Normal skin color and turgor. No cyanosis, rash, ulceration, clubbing or edema. Radial pedal pulses are 2/4 bilaterally. Results - Labs 03/12/17 07:56 03/12/17 07:38 Abnormal Lab Results - Last 24 Hours (Table) 03/11/17 03/11/17 03/11/17 Range/Units 13:23 13:23 15:18 WBC 17.0 H (3.8-10.6) k/uL Plt Count 137 L (150-450) k/uL Neutrophils # 15.6 H (1.3-7.7) k/uL Lymphocytes # 0.5 L (1.0-4.8) k/uL Sodium 135 L (137-145) mmol/L Chloride (98-107) mmol/L Carbon Dioxide 20 L (22-30) mmol/L Glucose (74-99) mg/dL POC Glucose (mg/dL) (75-99) mg/dL Calcium (8.4-10.2) mg/dL AST (14-36) U/L ALT (9-52) U/L Alkaline Phosphatase (38-126) U/L C-Reactive Protein 189.7 H (<10.0) mg/L Total Protein 6.1 L (6.3-8.2) g/dL Albumin 3.4 L (3.5-5.0) g/dL Amylase 231 H (30-110) U/L Urine Protein Trace H (Negative) Urine Blood Moderate H (Negative) Urine Mucus Rare H (None) /hpf 03/12/17 03/12/17 03/12/17 Range/Units 07:13 07:38 07:56 WBC 13.9 H (3.8-10.6) k/uL Plt Count 111 L (150-450) k/uL Neutrophils # 13.0 H (1.3-7.7) k/uL Lymphocytes # 0.3 L (1.0-4.8) k/uL Sodium 136 L (137-145) mmol/L Chloride 108 H (98-107) mmol/L Carbon Dioxide 20 L (22-30) mmol/L Glucose 106 H (74-99) mg/dL POC Glucose (mg/dL) 108 H (75-99) mg/dL Calcium 8.2 L (8.4-10.2) mg/dL AST 76 H (14-36) U/L ALT 131 H (9-52) U/L Alkaline Phosphatase 161 H (38-126) U/L C-Reactive Protein (<10.0) mg/L Total Protein 5.0 L (6.3-8.2) g/dL Albumin 2.6 L (3.5-5.0) g/dL Amylase (30-110) U/L Urine Protein (Negative) Urine Blood (Negative) Urine Mucus (None) /hpf Microbiology - Last 24 Hours (Table) 03/11/17 13:23 Blood Culture Gram Stain - Preliminary Blood 03/11/17 13:23 Blood Culture - Final Blood 03/11/17 15:18 Urine Culture - Preliminary Urine,Catheterized Diabetes panel 03/11/17 03/12/17 Range/Units 13:23 07:38 Sodium 135 L 136 L (137-145) mmol/L Potassium 4.1 3.9 (3.5-5.1) mmol/L Chloride 104 108 H (98-107) mmol/L Carbon Dioxide 20 L 20 L (22-30) mmol/L BUN 17 15 (7-17) mg/dL Creatinine 0.90 0.94 (0.52-1.04) mg/dL Glucose 97 106 H (74-99) mg/dL Calcium 8.9 8.2 L (8.4-10.2) mg/dL AST 23 76 H (14-36) U/L ALT 25 131 H (9-52) U/L Alkaline Phosphatase 123 161 H (38-126) U/L Total Protein 6.1 L 5.0 L (6.3-8.2) g/dL Albumin 3.4 L 2.6 L (3.5-5.0) g/dL Calcium panel 03/11/17 03/12/17 Range/Units 13:23 07:38 Calcium 8.9 8.2 L (8.4-10.2) mg/dL Albumin 3.4 L 2.6 L (3.5-5.0) g/dL Pituitary panel 03/11/17 03/12/17 Range/Units 13:23 07:38 Sodium 135 L 136 L (137-145) mmol/L Potassium 4.1 3.9 (3.5-5.1) mmol/L Chloride 104 108 H (98-107) mmol/L Carbon Dioxide 20 L 20 L (22-30) mmol/L BUN 17 15 (7-17) mg/dL Creatinine 0.90 0.94 (0.52-1.04) mg/dL Glucose 97 106 H (74-99) mg/dL Calcium 8.9 8.2 L (8.4-10.2) mg/dL Adrenal panel 03/11/17 03/12/17 Range/Units 13:23 07:38 Sodium 135 L 136 L (137-145) mmol/L Potassium 4.1 3.9 (3.5-5.1) mmol/L Chloride 104 108 H (98-107) mmol/L Carbon Dioxide 20 L 20 L (22-30) mmol/L BUN 17 15 (7-17) mg/dL Creatinine 0.90 0.94 (0.52-1.04) mg/dL Glucose 97 106 H (74-99) mg/dL Calcium 8.9 8.2 L (8.4-10.2) mg/dL Total Bilirubin 0.6 0.7 (0.2-1.3) mg/dL AST 23 76 H (14-36) U/L ALT 25 131 H (9-52) U/L Alkaline Phosphatase 123 161 H (38-126) U/L Total Protein 6.1 L 5.0 L (6.3-8.2) g/dL Albumin 3.4 L 2.6 L (3.5-5.0) g/dL Assessment and Plan Plan: Impression Present on admission abdominal pain left lower quadrant onset 2 days prior suspect due to 6 cm peridiverticular abscess anterior to the mid sigmoid colon History of a recent 11/30/2016 exploratory laparotomy lysis of adhesions 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 History of Parkinson's Dementia no behavior disturbance Coronary artery disease with prior myocardial infarction Seizure disorder last seizure in the 70s Chronic anemia Peripheral vascular disease Plan Will discuss with interventional radiology if the abscesses amendable to percutaneous drainage IV Zosyn as ordered Further surgical recommendations DVT and GI prophylaxis Home meds as appropriate Follow up on urine and blood cultures Further recommendations pending interventional radiology's recommendations if abscesses amendable to drainage The above impression and plan of care have been discussed and directed by signing physician. Danuta Ocampo nurse practitioner acting as scribe for signing physician.
[2017-03-12] MEDS: SERTRALINE 50 MG TAB PO SCH (09:41)
[2017-03-12] MEDS: glipiZIDE 5 MG TAB PO SCH (09:41)
[2017-03-12] MEDS: MEMANTINE 10 MG TAB PO SCH ×2 (09:42→21:41)
[2017-03-12] MEDS: metroNIDAZOLE 500 MG TAB PO SCH ×3 (09:42→21:41)
[2017-03-12] MEDS: DONEPEZIL 10 MG TAB PO SCH (09:42)
[2017-03-12] MEDS: LORATADINE 10 MG TAB PO SCH (09:42)
[2017-03-12] MEDS: MONTELUKAST 10 MG TAB PO SCH (09:42)
[2017-03-12 09:55] LABS: INR 1.2 (<1.2); Prothrombin Time 12.2 sec (9.0-12.0)
--- NOTE | 2017-03-12 09:57 | P.CONS ---
History of Present Illness - Reason for Consult Consult date: 03/12/17 Medical Management - Chief Complaint Abdominal Pain - History of Present Illness This is a 66 year old female who presented to the ER with a chief complaint of abdominal pain. The patient was brought in by her sister, Reny, who is also her legal guardian. Her abdominal pain has been present for approximately 2 days. In the emergency room, a CT scan of the abdomen and pelvis was completed which revealed inflammatory changes in the pelvis suggestive of a 6 cm peridiverticular abscess anterior to the mid sigmoid colon. A chest x-ray was completed which was unremarkable. The patient has underwent prior abdominal surgeries. 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 The patient was admitted to the hospital under the care of Dr. Leal. A consult was placed to Dr. Golden, the patient's PCP, for medical management. Consults were also placed to interventional radiology for possible drainage of the abscess. The patient was seen and examined this morning at the bedside with Dr. Golden. There is no family present at this time. The patient is very lethargic this morning. She would not open her eyes. She does have a history of dementia. However she would answer questions and nod appropriately. She denies chest pain or shortness of breath. Bowel sounds are present. She did have severe pain when her right lower quadrant was palpated, however she denied pain upon palpation of left quadrant. However, it is noted that the patient had left quadrant pain when palpated per surgery's note. Her white count was elevated on admission at 17.0. It is 13.9 this morning. She is receiving zosyn. Review of Systems ROS unobtainable: due to mental status Past Medical History Past Medical History: Asthma, Coronary Artery Disease (CAD), Heart Failure, Dementia, Diabetes Mellitus, Deep Vein Thrombosis (DVT), GERD/Reflux, Hyperlipidemia, Myocardial Infarction (TN), Osteoarthritis (OA), Pneumonia, Renal Disease, Seizure Disorder, Sleep Apnea/CPAP/BIPAP, Vascular Disorder Additional Past Medical History / Comment(s): Bronchial asthma, dementia, diabetes mellitus, hyperlipidemia, coronary artery disease with previous myocardial infarction, seizure disorder many years back and the patient has not been on seizure medication. Her last seizure was back in the 70s., sleep apnea , obstructive sleep apnea with suboptimal compliance to CPAP therapy, recent fall with a nasal fracture which has hindered our ability to put in a NG tube is still bowel syndrome, TMJ, chronic anemia, peripheral vascular disease, diverticulosis, cardiac murmur, remote history of DVT, diabetes mellitus, bipolar disorder Last Myocardial Infarction Date:: 1991 History of Any Multi-Drug Resistant Organisms: None Reported Past Surgical History: Adenoidectomy, Appendectomy, Bowel Resection, Cholecystectomy, Hernia Repair, Hysterectomy, Joint Replacement, Orthopedic Surgery, Tonsillectomy Additional Past Surgical History / Comment(s): partial colon resection with colostomy then reversal, SILVERIO KNEE ARTHROSCOPY,Right KNEE REPLACEMENT, EGDs and colonoscopies, lipomas off back, cyst off spine, eye duct surgery Past Anesthesia/Blood Transfusion Reactions: Previous Problems w/ Anesthesia, Motion Sickness Additional Past Anesthesia/Blood Transfusion Reaction / Comm: DIFFICULTY WAKING UP. CLAUSTERPHOBIC Past Psychological History: Anxiety, Bipolar Additional Psychological History / Comment(s): DYSLEXIA but is able to read and write with some difficulty. Pt resides with her sisters, Reny who is also her legal guardian and other sister Michelle. They are her caretakers. Dru uses a walker to ambulate. She does not drive, Michelle takes her to appts. pt also has dementia and is deaf Smoking Status: Never smoker Past Alcohol Use History: None Reported Additional Past Alcohol Use History / Comment(s): STARTED SMOKNG AT AGE 16, SMOKED 1 CIG PER DAY QUIT 1982 Past Drug Use History: None Reported - Past Family History Father Family Medical History: Cancer Additional Family Medical History / Comment(s): Father had lung cancer. Mother Family Medical History: Congestive Heart Failure (CHF), Dementia, Myocardial Infarction (TN) Medications and Allergies Home Medications Medication Instructions Recorded Confirmed Type Albuterol Sulfate [Proair Hfa] 2 puff INHALATION RT-QID PRN 06/24/14 03/11/17 History Donepezil [Aricept] 10 mg PO DAILY 02/07/15 03/11/17 History Loratadine 10 mg PO QAM 06/28/16 03/11/17 History Montelukast Sodium [Singulair] 10 mg PO DAILY 06/28/16 03/11/17 History Omeprazole [PriLOSEC] 20 mg PO HS 06/28/16 03/11/17 History Memantine HCl [Namenda Xr] 28 mg PO DAILY 07/15/16 03/11/17 History risperiDONE [RisperDAL] 1 mg PO HS 08/16/16 03/11/17 History Famotidine [Pepcid] 20 mg PO DAILY 09/03/16 03/11/17 History glipiZIDE [Glucotrol] 5 mg PO DAILY 09/03/16 03/11/17 History Sertraline [Zoloft] 50 mg PO QAM 11/22/16 03/11/17 History traMADol HCL [Ultram] 50 mg PO BID PRN 11/22/16 03/11/17 History Mirtazapine 7.5 mg PO HS 11/29/16 03/11/17 History HYDROcodone/APAP 5-325MG [Bradford 1 tab PO Q4HR PRN #40 tab 12/05/16 03/11/17 Rx 5-325] Allergies Allergy/AdvReac Type Severity Reaction Status Date / Time codeine Allergy Rash/Hives Verified 03/11/17 11:16 lorazepam [From Ativan] Allergy Rash/Hives Verified 03/11/17 11:16 oxaprozin [From Daypro] Allergy Rash/Hives Verified 03/11/17 11:16 Sulfa (Sulfonamide Allergy Rash/Hives Verified 03/11/17 11:16 Antibiotics) baclofen AdvReac Unknown Psychotic Verified 03/11/17 11:16 Episode cyclobenzaprine HCl AdvReac Confusion Verified 03/11/17 11:16 [From Flexeril] Physical Exam Vitals: Vital Signs Temp Pulse Pulse Resp BP BP Pulse Ox 03/12/17 07:00 98.2 F 84 16 132/74 98 03/11/17 22:59 98.0 F 92 16 130/67 93 L 03/11/17 19:45 97.0 F L 83 16 131/70 98 03/11/17 19:13 98.4 F 87 18 129/74 98 03/11/17 17:53 78 18 130/62 98 03/11/17 15:53 100 18 138/62 98 03/11/17 14:42 98.4 F 99 98 H 149/64 03/11/17 13:41 95 18 147/67 94 L 03/11/17 13:32 102 H 18 113/71 96 03/11/17 11:05 100.5 F H 83 18 139/66 95 Intake and Output 03/11/17 03/12/17 03/12/17 22:59 06:59 14:59 Other: # Bowel Movements 1 GENERAL: Lethargic, unable to open eyes, nods head appropriately to questions RESPIRATORY: Lungs clear bilaterally. No use of accessory muscles. Patient maintaining oxygen saturation greater than 92%. CARDIOVASCULAR: S1 and S2 noted. No murmurs auscultated. No JVD noted. EXTREMITIES: No edema noted. Palpable pedal pulses +2. ABDOMEN: No distention noted. Abdomen soft and round. Normal active bowel sounds auscultated 4 quadrants. Pain and tenderness noted upon palpation of right lower quadrant. Results CBC & Chem 7: 03/12/17 07:56 03/12/17 07:38 Labs: Abnormal Lab Results - Last 24 Hours (Table) 03/11/17 03/11/17 03/11/17 Range/Units 13:23 13:23 15:18 WBC 17.0 H (3.8-10.6) k/uL Plt Count 137 L (150-450) k/uL Neutrophils # 15.6 H (1.3-7.7) k/uL Lymphocytes # 0.5 L (1.0-4.8) k/uL Sodium 135 L (137-145) mmol/L Chloride (98-107) mmol/L Carbon Dioxide 20 L (22-30) mmol/L Glucose (74-99) mg/dL POC Glucose (mg/dL) (75-99) mg/dL Calcium (8.4-10.2) mg/dL AST (14-36) U/L ALT (9-52) U/L Alkaline Phosphatase (38-126) U/L C-Reactive Protein 189.7 H (<10.0) mg/L Total Protein 6.1 L (6.3-8.2) g/dL Albumin 3.4 L (3.5-5.0) g/dL Amylase 231 H (30-110) U/L Urine Protein Trace H (Negative) Urine Blood Moderate H (Negative) Urine Mucus Rare H (None) /hpf 03/12/17 03/12/17 03/12/17 Range/Units 07:13 07:38 07:56 WBC 13.9 H (3.8-10.6) k/uL Plt Count 111 L (150-450) k/uL Neutrophils # 13.0 H (1.3-7.7) k/uL Lymphocytes # 0.3 L (1.0-4.8) k/uL Sodium 136 L (137-145) mmol/L Chloride 108 H (98-107) mmol/L Carbon Dioxide 20 L (22-30) mmol/L Glucose 106 H (74-99) mg/dL POC Glucose (mg/dL) 108 H (75-99) mg/dL Calcium 8.2 L (8.4-10.2) mg/dL AST 76 H (14-36) U/L ALT 131 H (9-52) U/L Alkaline Phosphatase 161 H (38-126) U/L C-Reactive Protein (<10.0) mg/L Total Protein 5.0 L (6.3-8.2) g/dL Albumin 2.6 L (3.5-5.0) g/dL Amylase (30-110) U/L Urine Protein (Negative) Urine Blood (Negative) Urine Mucus (None) /hpf Microbiology - Last 24 Hours (Table) 03/11/17 13:23 Blood Culture Gram Stain - Preliminary Blood 03/11/17 13:23 Blood Culture - Final Blood 03/11/17 15:18 Urine Culture - Preliminary Urine,Catheterized Assessment and Plan Plan: ASSESSMENT: -Abdominal pain, present on admission, likely secondary to 6 cm peridiverticular abscess anterior to the mid sigmoid colon -History of recent exploratory laparotomy with lysis of adhesions and 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 -History of dementia -History of coronary artery disease with myocardial infarction -Diabetes mellitus, type II PLAN: -Continue care per Dr Leal -Possible drainage of abdominal abscess -Continue IV Zosyn -Resume home meds as appropriate -Monitor labs -Pain Control -Continue IV hydration -GI prophylaxis: Protonix 40 mg by mouth daily -DVT prophylaxis: On hold due to possible interventional radiology procedure -Monitor vital signs and address as appropriate -Monitor capillary blood glucose -will add Humalog sliding scale if patient's blood sugars are not well- controlled throughout hospitalization The above impression and plan of care have been discussed and directed by signing physician. Torie Willett, nurse practitioner, acting as scribe for signing physician.
[2017-03-12] MEDS ORDERED: VANCOMYCIN IV PER PHARMACY 1 EACH MISC MISCELLANE PRN (10:32)
[2017-03-12] MEDS ORDERED: VANCOMYCIN 1,250 MG in SODIUM CHLORIDE 0.9% 250 ML IVPB ONE (12:00)
[2017-03-12] MEDS: HEPARIN SODIUM,PORCINE 5,000 UNIT/ML 1 ML VIAL SQ SCH ×2 (15:55→23:43)
[2017-03-12] MEDS ORDERED: ACETAMINOPHEN IV (For NPO) 1,000 MG in EMPTY BAG 1 BAG IVPB ONE (16:38)
[2017-03-12] MEDS: risperiDONE 1 MG TAB PO SCH (21:40)
[2017-03-12] MEDS: MIRTAZAPINE 15 MG TAB PO SCH (21:40)
[2017-03-12] MEDS: PANTOPRAZOLE 40 MG TABLET PO SCH (21:41)
[2017-03-12] MEDS: VANCOMYCIN 1,250 MG in SODIUM CHLORIDE 0.9% 250 ML IVPB SCH (21:41)
[2017-03-12 22:18] LABS: Glucose,Whole Blood 57 mg/dL (75-99)
[2017-03-12 22:28] LABS: Glucose,Whole Blood 61 mg/dL (75-99)
[2017-03-12] MEDS: DEXTROSE 5%-0.45% NACL 1,000 ML IV SCH (22:29)
[2017-03-13 00:10] LABS: Glucose,Whole Blood 109 mg/dL (75-99)
--- NOTE | 2017-03-13 05:25 | CONS ---
CONSULTATION DATE OF SERVICE: 03/12/2017 REASON FOR CONSULTATION: Diverticulitis with an abscess. HISTORY OF PRESENT ILLNESS: The patient is a 66-year-old female who presented to the ER at [facility] with chief complaints of abdominal pain that apparently has been going on for about 2 days prior to presentation to hospital. There is no clear history of any nausea, vomiting, or any diarrhea. The patient on arrival to the ER did have a CT abdomen and pelvis that shows sigmoid diverticulitis with surrounding diverticular abscess about 6.4 cm. The patient did have a fever of 100.5 in the ER and subsequently did spike another fever of 101.3. Did have elevated white count of 17,000. The patient has been treated with Zosyn. She did have blood cultures drawn, which are now showing gram-positive cocci. Hence ID was consulted for further recommendation regarding antibiotic therapy. Most of the information has been obtained from review of the chart, talking to nursing staff as the patient was noticed to be lethargic and sleepy and unable to provide a reliable history. REVIEW OF SYSTEMS: Could not be reliably obtained, but the positive points have been mentioned in HPI. PAST MEDICAL HISTORY: Significant for asthma, coronary artery disease, heart failure, dementia, diabetes mellitus, DVT, gastroesophageal reflux disease, hyperlipidemia, pneumonia, renal insufficiency, seizure disorder, sleep apnea. PAST SURGICAL HISTORY: Significant for appendectomy, adenoidectomy, bowel resection, cholecystectomy, hernia repair, hysterectomy, left knee arthroscopy and right knee replacement. SOCIAL HISTORY: Positive for smoking, quit back in 1982. No drinking or drug use. FAMILY HISTORY: Father had history of lung cancer. Mother had history of SC and congestive heart failure. ALLERGIES: Allergies to LORAZEPAM, OXAPROZIN, SULFA, BACLOFEN, CYCLOBENZAPRINE. MEDICATIONS: The medications currently include the patient is on Zosyn 3.375 gram q.6. She is on Ultram, Zoloft, Risperdal, Protonix, Zofran, Narcan, Singulair, Remeron, Flagyl, Dilaudid, Glucotrol and Aricept. PHYSICAL EXAMINATION: On examination, blood pressure is 128/61 with a pulse of 92, temperature of 100.3. She is 98% on 2 L nasal cannula. General description is an elderly female lying in bed in no distress. No tachypnea or accessory muscle of respiration use. HEENT examination shows no pallor or scleral icterus. Oral mucous membrane is dry. NECK: Trachea central. No thyromegaly. LUNGS: Unlabored breathing. Clear to auscultation anteriorly. HEART: S1, S2. Regular rate and rhythm. ABDOMEN: Soft. She is tender in the right lower quadrant area. No guarding. No rigidity. EXTREMITIES: No edema of feet. SKIN EXAMINATION: No rash or mass palpable. NEUROLOGICAL: Patient is lethargic. Orientation could not be determined. No signs of meningeal irritation. LABS: Hemoglobin is 12.2, white count 13.9 with a BUN of 15, creatinine 0.94. Blood culture positive gram-positive. CT report as mentioned above. DIAGNOSTIC IMPRESSION AND PLAN: Patient admitted to the hospital with sepsis and patient did have a fever of 101.3, did have elevated white count. Source is acute sigmoid diverticulitis with diverticular abscess, peridiverticular abscess about 6.[address] was reviewed with radiologist. This is located deep and could not be CT-guided drained. The patient did have evidence of gram-positive bacteremia with question of possible enterococcus, likely of gut origin. PLAN: 1. Blood culture will be repeated. 2. Vancomycin will be added to the Zosyn. 3. Will discuss with surgery if surgical intervention such as laparoscopic drainage of this abscess may be attempted in order to completely take care of this infection. 4. We will follow up on clinical condition and culture to further adjust medication if needed. Thank you for this consultation. Will follow this patient along with you. MMODL / IJN: [id number] / [email or web address]
[2017-03-13] MEDS: DEXTROSE 5%-0.45% NACL 1,000 ML IV SCH ×2 (06:17→17:06)
[2017-03-13 06:24] LABS: Glucose,Whole Blood 105 mg/dL (75-99)
[2017-03-13 07:22] LABS: Glucose,Whole Blood 101 mg/dL (75-99)
[2017-03-13] MEDS: ALBUTEROL NEBULIZED 2.5 MG/3 ML INHALATION PRN (08:02)
[2017-03-13] MEDS: glipiZIDE 5 MG TAB PO SCH (08:13)
[2017-03-13] MEDS: MEMANTINE 10 MG TAB PO SCH ×2 (08:13→22:02)
[2017-03-13] MEDS: DONEPEZIL 10 MG TAB PO SCH (08:13)
[2017-03-13] MEDS: LORATADINE 10 MG TAB PO SCH (08:13)
[2017-03-13] MEDS: metroNIDAZOLE 500 MG TAB PO SCH ×3 (08:14→22:01)
[2017-03-13] MEDS: SERTRALINE 50 MG TAB PO SCH (08:14)
[2017-03-13] MEDS: MONTELUKAST 10 MG TAB PO SCH (08:14)
[2017-03-13] MEDS: HEPARIN SODIUM,PORCINE 5,000 UNIT/ML 1 ML VIAL SQ SCH ×2 (08:24→22:59)
[2017-03-13] MEDS: PIPERACILLIN-TAZOBACTAM 3.375 GM in DEXTROSE/WATER 1 50ML.BAG IVPB SCH ×2 (08:29→18:51)
[2017-03-13 08:38] LABS: Basophils % (A) 0 %; CH 29.2; CHCM 32.4; Eosinophils % (A) 0 %; HCT 38.8 % (34.0-46.0); HDW 2.32; HGB 12.4 gm/dL (11.4-16.0); Luc % (Auto) 1; Lymphocytes # (A) 0.4 k/uL (1.0-4.8); Lymphocytes % (A) 3 %; MCH 28.8 pg (25.0-35.0); MCHC 31.8 g/dL (31.0-37.0); MCV 90.5 fL (80.0-100.0); Mean Platelet Volume 7.7; Monocytes # (A) 0.5 k/uL (0-1.0); Monocytes % (A) 4 %; Neutrophils # (A) 12.3 k/uL (1.3-7.7); Neutrophils % (A) 92 %; RBC 4.29 m/uL (3.80-5.40); RDW 14.4 % (11.5-15.5); WBC 13.4 k/uL (3.8-10.6); WBC (Perox) 13.42
--- NOTE | 2017-03-13 09:47 | P.PN ---
Subjective Progress Note Date: 03/13/17 03/12/2017 This is a 66 year old female who presented to the ER with a chief complaint of abdominal pain. The patient was brought in by her sister, Reny, who is also her legal guardian. Her abdominal pain has been present for approximately 2 days. In the emergency room, a CT scan of the abdomen and pelvis was completed which revealed inflammatory changes in the pelvis suggestive of a 6 cm peridiverticular abscess anterior to the mid sigmoid colon. A chest x-ray was completed which was unremarkable. The patient has underwent prior abdominal surgeries. 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 The patient was admitted to the hospital under the care of Dr. Leal. A consult was placed to Dr. Golden, the patient's PCP, for medical management. Consults were also placed to interventional radiology for possible drainage of the abscess. The patient was seen and examined this morning at the bedside with Dr. Golden. There is no family present at this time. The patient is very lethargic this morning. She would not open her eyes. She does have a history of dementia. However she would answer questions and nod appropriately. She denies chest pain or shortness of breath. Bowel sounds are present. She did have severe pain when her right lower quadrant was palpated, however she denied pain upon palpation of left quadrant. However, it is noted that the patient had left quadrant pain when palpated per surgery's note. Her white count was elevated on admission at 17.0. It is 13.9 this morning. She is receiving zosyn. 03/13/2017 Patient seen and examined this morning. She appears more awake this morning. Able to open eyes. Continues to complain of right side abdominal pain but she states it is improved since yesterday. She is NPO for surgery today with Dr. Leal. Procedure planned is drainage of pelvic abscess, sigmoid colectomy, and colostomy. She was hypoglycemic last night with a BS of 57 and 61. This morning she is 101. Dr. Golden started the patient on D5.45 @ 125cc/hr. Her temperatute this morning is 99.9F. Her Tmax over the last [address] Dey, infectious disease, is also on consult. The patient remains on Vanco , Zosyn, and Flagyl. Objective - Vital Signs Vital signs: Vital Signs Temp 99.9 F H 03/13/17 07:00 Pulse 92 03/13/17 08:13 Resp 16 03/13/17 07:00 BP 144/72 03/13/17 07:00 Pulse Ox 99 03/13/17 08:03 Intake & Output 03/12/17 03/13/17 03/13/17 18:59 06:59 18:59 Weight 63.503 kg 63.503 kg Other: # Voids 1 4 # Bowel Movements 1 4 - Exam GENERAL: Appears more awake today, answering questions, nods head appropriately to questions RESPIRATORY: Lungs clear bilaterally. No use of accessory muscles. Patient maintaining oxygen saturation greater than 92%. CARDIOVASCULAR: S1 and S2 noted. No murmurs auscultated. No JVD noted. EXTREMITIES: No edema noted. Palpable pedal pulses +2. ABDOMEN: No distention noted. Abdomen soft and round. Normal active bowel sounds auscultated 4 quadrants. Pain and tenderness noted upon palpation of right lower quadrant. - Labs CBC & Chem 7: 03/13/17 07:33 03/12/17 07:38 Labs: Abnormal Lab Results - Last 24 Hours (Table) 03/12/17 03/12/17 03/12/17 Range/Units 07:38 07:56 09:35 WBC 13.9 H (3.8-10.6) k/uL Plt Count 111 L (150-450) k/uL Neutrophils # 13.0 H (1.3-7.7) k/uL Lymphocytes # 0.3 L (1.0-4.8) k/uL PT 12.2 H (9.0-12.0) sec INR 1.2 H (<1.2) Sodium 136 L (137-145) mmol/L Chloride 108 H (98-107) mmol/L Carbon Dioxide 20 L (22-30) mmol/L Glucose 106 H (74-99) mg/dL POC Glucose (mg/dL) (75-99) mg/dL Calcium 8.2 L (8.4-10.2) mg/dL AST 76 H (14-36) U/L ALT 131 H (9-52) U/L Alkaline Phosphatase 161 H (38-126) U/L Total Protein 5.0 L (6.3-8.2) g/dL Albumin 2.6 L (3.5-5.0) g/dL 03/12/17 03/12/17 03/12/17 Range/Units 22:06 22:26 23:58 WBC (3.8-10.6) k/uL Plt Count (150-450) k/uL Neutrophils # (1.3-7.7) k/uL Lymphocytes # (1.0-4.8) k/uL PT (9.0-12.0) sec INR (<1.2) Sodium (137-145) mmol/L Chloride (98-107) mmol/L Carbon Dioxide (22-30) mmol/L Glucose (74-99) mg/dL POC Glucose (mg/dL) 57 L 61 L 109 H (75-99) mg/dL Calcium (8.4-10.2) mg/dL AST (14-36) U/L ALT (9-52) U/L Alkaline Phosphatase (38-126) U/L Total Protein (6.3-8.2) g/dL Albumin (3.5-5.0) g/dL 03/13/17 03/13/17 Range/Units 06:22 07:01 WBC (3.8-10.6) k/uL Plt Count (150-450) k/uL Neutrophils # (1.3-7.7) k/uL Lymphocytes # (1.0-4.8) k/uL PT (9.0-12.0) sec INR (<1.2) Sodium (137-145) mmol/L Chloride (98-107) mmol/L Carbon Dioxide (22-30) mmol/L Glucose (74-99) mg/dL POC Glucose (mg/dL) 105 H 101 H (75-99) mg/dL Calcium (8.4-10.2) mg/dL AST (14-36) U/L ALT (9-52) U/L Alkaline Phosphatase (38-126) U/L Total Protein (6.3-8.2) g/dL Albumin (3.5-5.0) g/dL Microbiology - Last 24 Hours (Table) 03/11/17 13:23 Blood Culture Gram Stain - Preliminary Blood Blood Culture - Preliminary Coagulase Negative Staph 03/11/17 15:18 Urine Culture - Final Urine,Catheterized 03/11/17 13:23 Blood Culture - Final Blood Assessment and Plan Plan: ASSESSMENT: -Abdominal pain, present on admission, likely secondary to 6 cm peridiverticular abscess anterior to the mid sigmoid colon -History of recent exploratory laparotomy with lysis of adhesions and 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 -History of dementia -History of coronary artery disease with myocardial infarction -Diabetes mellitus, type II -Hypoglycemia, secondary to NPO status PLAN: -Continue care per Dr Leal -OR today -Infectious disease on consult -Continue Zosyn, Vanco, and Flagyl per infectious disease -Continue D5.45 at 125cc/hr -Monitor labs -Pain Control -Continue IV hydration -GI prophylaxis: Protonix 40 mg by mouth daily -DVT prophylaxis: On hold for OR -Monitor vital signs and address as appropriate -Monitor capillary blood glucose -Monitor for hypoglycemia -will add Humalog sliding scale if patient's blood sugars are not well- controlled throughout hospitalization The above impression and plan of care have been discussed and directed by signing physician. Torie Willett, nurse practitioner, acting as scribe for signing physician.
[2017-03-13 11:29] LABS: Glucose,Whole Blood 111 mg/dL (75-99)
--- NOTE | 2017-03-13 11:50 | PN ---
PROGRESS NOTE DATE OF SERVICE: 03/13/2017 REASON FOR FOLLOWUP: Abdominal abscess from a ruptured diverticulitis. INTERVAL HISTORY: The patient overall fever pattern has improved. She has been breathing comfortably. Abdominal pain is slightly improved. Patient denies any chest pain, shortness of breath or cough. No diarrhea. PHYSICAL EXAMINATION: On examination, blood pressure 144/72 with a pulse of 92, temperature 99.9. She is 99% on 2 L nasal cannula. General description is an elderly female lying in bed in no distress. RESPIRATORY SYSTEM: Unlabored breathing. Clear to auscultation anteriorly. HEART: S1, S2. Regular rate and rhythm. ABDOMEN: Soft, minimal tenderness in right lower quadrant area. EXTREMITIES: No edema of feet. LABS: White count of 13.4. Blood culture is coagulase negative staph. DIAGNOSTIC IMPRESSION AND PLAN: 1. Patient with sepsis. Sources is abdominal abscess, unable to be drained CT-guided. Scheduled for a surgery for drainage of the abscess. Recommend aerobic and anaerobic culture at the time of surgical drainage. Keep the patient on Zosyn. 2. Positive blood culture with a coagulase-negative staph likely skin contamination. Vanco will be discontinued. MMODL / IJN: [id number] /
[2017-03-13] MEDS ORDERED: IV FLUID CONTINUATION 500 ML IV ONE (11:55)
--- NOTE | 2017-03-13 12:12 | P.PN ---
Progress Note - Text Progress Note Date: 03/13/17 The patient's CAT scan was reviewed the radiologist. The abscesses position in such a way that it is not amenable to CT-guided drainage. I discussed with the sister and patient yesterday that she will need to undergo exposure laparotomy and drainage of the abscess with possible bowel resection and colostomy. I discussed the risk of wound infection bleeding and sepsis with the patient and her sister. Patient wishes to proceed with surgery today.
[2017-03-13] MEDS ORDERED: HEPARIN SODIUM,PORCINE 5,000 UNIT/ML 1 ML VIAL SQ ONE (12:13)
[2017-03-13] MEDS ORDERED: SUCCINYLCHOLINE CHLORIDE 100 MG/5 ML SYR IV ONE (13:49)
[2017-03-13] MEDS ORDERED: LIDOCAINE 1% INJ 10MG/ML (20 ML MDV) ONE (13:49)
[2017-03-13] MEDS ORDERED: LACTATED RINGERS 1,000 ML IV ONE ×2 (13:49→16:19)
[2017-03-13] MEDS ORDERED: NEOSTIGMINE 1 MG/ML 10 ML VIAL ONE (13:49)
[2017-03-13] MEDS ORDERED: fentaNYL (PF) 50 MCG/ML 2 ML AMP ONE ×2 (13:49)
[2017-03-13] MEDS ORDERED: ROCURONIUM BROMIDE 10 MG/ML 10 ML VIAL IV ONE (13:49)
[2017-03-13] MEDS ORDERED: PROPOFOL 10 MG/ML 20 ML VIAL IV ONE (13:49)
[2017-03-13] MEDS ORDERED: PHENYLEPHRINE-0.9% NACL SYG 1 MG/10 ML SYRINGE ONE (13:49)
[2017-03-13] MEDS ORDERED: VANCOMYCIN 1,000 MG VIAL ONE (13:49)
[2017-03-13] MEDS ORDERED: GLYCOPYRROLATE 0.2 MG/ML 2 ML VIAL ONE (13:49)
[2017-03-13] MEDS ORDERED: ePHEDrine SULFATE/0.9% NACL/PF 50 MG/5 ML SYRINGE IV ONE (13:49)
[2017-03-13] MEDS: VANCOMYCIN 1,250 MG in SODIUM CHLORIDE 0.9% 250 ML IVPB SCH (14:32)
[2017-03-13 15:43] LABS: Glucose,Whole Blood 100 mg/dL (75-99)
[2017-03-13] MEDS ORDERED: ONDANSETRON 4 MG/2 ML VIAL IVP PRN (16:09)
[2017-03-13] MEDS ORDERED: HYDROmorphone 1 MG/ML 1 ML SYRINGE IVP PRN (16:09)
[2017-03-13] MEDS ORDERED: METOCLOPRAMIDE 5 MG/ML 2 ML VIAL IVP PRN (16:09)
[2017-03-13] MEDS ORDERED: LACTATED RINGERS 1,000 ML IV SCH (16:15)
--- NOTE | 2017-03-13 16:22 | P.OP ---
Date of Procedure: 03/13/17 Preoperative Diagnosis: Perforated diverticulitis with abscess Procedure(s) Performed: Exploratory laparotomy Lysis of adhesions Small bowel resection Sigmoid colectomy with end colostomy Partial greater omentectomy Anesthesia: MARCIAL Surgeon: Jose Juan Leal Estimated Blood Loss (ml): 50 Pathology: other (Omentum, sigmoid colon, ileum) Condition: stable Disposition: PACU Description of Procedure: The patient's placed on the operative table in the supine position. She received general anesthesia. The abdomen was entered through a midline. There were adhesions noted along the midline. Using a Shannen cautery and sharp dissection the adhesions were lysed. Approximately 20 minutes of operative time used to lyse adhesions centered abdominal cavity. The Bookwalter retractors placed a wound. The abdomen explored. There was an inflammatory mass in the pelvis. Small bowel was retracted and there was a large abscess cavity. There is feculent material within the abscess cavity. This area was cultured. The abscess appeared to have penetrated the terminal ileum. The abscess appeared to have started from the perforated sigmoid diverticulum. At this point the terminal ileum was transected distally and proximally and the mesentery was divided with the LigaSure device. A [id number] functional end- to-end staple anastomosis created with the ARABELLA and TA stapler. The anastomosis right before the ileocecal valve. At this point the sigmoid colon was mobilized. There were dense adhesions in the pelvis. The left ureter was identified. Using the contour stapler the rectum area was divided. The sigmoid colon was then transected proximally using the linear cutter. The mesentery the bowel was divided with LigaSure device. The abdomen was then irrigated there is no bleeding seen. A 19-Czech round WEN drains placed the pelvis. This was brought out through separate stab incision. Secured with 2-0 nylon. A suitable spot for the colostomy was chosen on the left lower quadrant. The colostomy site was created by dividing the skin and then dividing the fascia with the electrocautery. The colon was then brought up through the abdominal wall. The fascia was then closed with the closure separate instruments. Colostomy was then matured with 3-0 Vicryl. The patient was then sent to the ICU in guarded condition. Was still intubated at the time of this dictation.
[2017-03-13] MEDS ORDERED: PROPOFOL 1,000 MG/100 ML VIAL IV ONE (16:30)
[2017-03-13 16:35] LABS: Glucose,Whole Blood 100 mg/dL (75-99)
--- NOTE | 2017-03-13 17:06 | XR ---
EXAMINATION TYPE: XR chest 1V portable DATE OF EXAM: 03/13/2017 COMPARISON: 03/11/2017 HISTORY: Check tube placement TECHNIQUE: Single frontal view of the chest is obtained. FINDINGS: Endotracheal tube is in good position. There is right jugular catheter with the tip over t he right atrium. There is nasogastric tube with the tip over the left diaphragm. There is no heart fa ilure. There are chest leads. Lungs are clear of consolidation. There is mild subsegmental atelectasi s at the lung bases. IMPRESSION: Endotracheal tube is in good position. No pulmonary consolidation. Heart and lungs are u nchanged.
[2017-03-13 17:22] LABS: ABG HCO3 17 mmol/L (21-25); ABG PCO2 32 mmHg (35-45); ABG PH 7.33 (7.35-7.45); ABG PO2 >400 mmHg (83-108); ABG TCO2 18 mmol/L (19-24)
[2017-03-13 17:23] LABS: ABG Base Excess -8.2 mmol/L
[2017-03-13 17:48] LABS: INR 1.1 (<1.2); Partial Thromboplastin Time 26.7 sec (22.0-30.0); Prothrombin Time 11.5 sec (9.0-12.0)
[2017-03-13 17:49] LABS: Basophils % (A) 0 %; CH 28.1; CHCM 30.6; Eosinophils % (A) 0 %; HCT 37.5 % (34.0-46.0); HDW 2.34; HGB 11.7 gm/dL (11.4-16.0); Hypochromasia Slight; Luc # (Auto) 0.09; Luc % (Auto) 1; Lymphocytes # (A) 0.3 k/uL (1.0-4.8); Lymphocytes % (A) 3 %; MCH 28.7 pg (25.0-35.0); MCHC 31.2 g/dL (31.0-37.0); Mean Platelet Volume 7.3; Monocytes # (A) 0.5 k/uL (0-1.0); Monocytes % (A) 4 %; Neutrophils # (A) 10.7 k/uL (1.3-7.7); Neutrophils % (A) 92 %; RBC 4.08 m/uL (3.80-5.40); RDW 13.5 % (11.5-15.5); WBC 11.6 k/uL (3.8-10.6); WBC (Perox) 11.16
[2017-03-13] MEDS ORDERED: SODIUM CHLORIDE 0.9% 1,000 ML IV ONE ×2 (18:08→18:09)
[2017-03-13 18:20] LABS: Glucose,Whole Blood 115 mg/dL (75-99)
[2017-03-13] MEDS: PROPOFOL 1,000 MG/100 ML VIAL IV SCH ×2 (19:05→23:00)
[2017-03-13 19:24] LABS: ALT 56 U/L (9-52); AST 32 U/L (14-36); Alkaline Phosphatase 98 U/L (38-126); Anion Gap 11 mmol/L; Blood Urea Nitrogen 10 mg/dL (7-17); Calcium 7.6 mg/dL (8.4-10.2); Carbon Dioxide 15 mmol/L (22-30); Chloride 111 mmol/L (98-107); Glucose 126 mg/dL (74-99); Magnesium 1.5 mg/dL (1.6-2.3); Non-African American GFR(MDRD) >60 (>60 ml/min/1.73 sqM); Phosphorus 3.3 mg/dL (2.5-4.5); Sodium 137 mmol/L (137-145); Total Bilirubin 0.9 mg/dL (0.2-1.3); Total Protein 5.2 g/dL (6.3-8.2)
[2017-03-13 19:26] LABS: Potassium 5.4 mmol/L (3.5-5.1)
[2017-03-13] MEDS ORDERED: Magnesium Replacement Protocol 1 EACH MISC MISCELLANE PRN (19:40)
[2017-03-13] MEDS: MAGNESIUM SULFATE-D5W PMX 1 GM in DEXTROSE/WATER 1 100ML.BAG IVPB SCH ×2 (20:07→22:03)
[2017-03-13] MEDS: CHLORHEXIDINE GLUCONATE 15 ML CUP MUCOUS MEM SCH ×2 (20:44→22:03)
[2017-03-13] MEDS: SODIUM CHLORIDE 0.9% 1,000 ML IV SCH (20:45)
[2017-03-13 20:51] LABS: Glucose,Whole Blood 122 mg/dL (75-99)
[2017-03-13] MEDS: risperiDONE 1 MG TAB PO SCH (22:01)
[2017-03-13] MEDS: FAMOTIDINE 20 MG/2 ML VIAL IV SCH (22:01)
[2017-03-13] MEDS: MIRTAZAPINE 15 MG TAB PO SCH (22:02)
[2017-03-13] MEDS: PANTOPRAZOLE 40 MG TABLET PO SCH (22:09)
[2017-03-14] MEDS ORDERED: SODIUM CHLORIDE 0.9% 1,000 ML IV ONE (00:19)
[2017-03-14] MEDS: PIPERACILLIN-TAZOBACTAM 3.375 GM in DEXTROSE/WATER 1 50ML.BAG IVPB SCH ×3 (00:57→16:17)
[2017-03-14] MEDS: SODIUM CHLORIDE 0.9% 1,000 ML IV SCH ×2 (00:59→07:59)
[2017-03-14] MEDS: HYDROmorphone 0.5 MG/0.5 ML SYRINGE IVP PRN ×5 (03:09→22:27)
[2017-03-14 03:18] LABS: Glucose,Whole Blood 176 mg/dL (75-99)
[2017-03-14 03:18] LABS: Glucose,Whole Blood 205 mg/dL (75-99)
[2017-03-14 05:05] LABS: Basophils % (A) 0 %; CHCM 29.4; Eosinophils # (A) 0.1 k/uL (0-0.7); Eosinophils % (A) 0 %; HCT 35.3 % (34.0-46.0); HDW 2.35; HGB 10.6 gm/dL (11.4-16.0); Hypochromasia Marked; Luc # (Auto) 0.13; Luc % (Auto) 1; Lymphocytes # (A) 0.6 k/uL (1.0-4.8); Lymphocytes % (A) 5 %; MCH 28.8 pg (25.0-35.0); MCHC 30.2 g/dL (31.0-37.0); MCV 95.5 fL (80.0-100.0); Mean Platelet Volume 7.2; Monocytes # (A) 0.6 k/uL (0-1.0); Monocytes % (A) 5 %; Neutrophils # (A) 11.3 k/uL (1.3-7.7); Neutrophils % (A) 89 %; RBC 3.69 m/uL (3.80-5.40); RDW 13.5 % (11.5-15.5); WBC 12.6 k/uL (3.8-10.6); WBC (Perox) 12.65
[2017-03-14 05:18] LABS: Calcium 7.2 mg/dL (8.4-10.2); Magnesium 2.2 mg/dL (1.6-2.3); Potassium 3.6 mmol/L (3.5-5.1)
[2017-03-14 06:08] LABS: ABG Base Excess -9.6 mmol/L; ABG HCO3 16 mmol/L (21-25); ABG PCO2 32 mmHg (35-45); ABG PH 7.31 (7.35-7.45); ABG PO2 242 mmHg (83-108); ABG TCO2 16 mmol/L (19-24)
[2017-03-14] MEDS: PROPOFOL 1,000 MG/100 ML VIAL IV SCH (06:35)
[2017-03-14] MEDS ORDERED: Potassium Replacement Protocol 1 EACH MISC MISCELLANE PRN (07:22)
[2017-03-14] MEDS: ALBUTEROL NEBULIZED 2.5 MG/3 ML INHALATION PRN ×4 (07:36→19:46)
[2017-03-14] MEDS: MEMANTINE 10 MG TAB PO SCH ×2 (08:00→19:59)
[2017-03-14] MEDS: MONTELUKAST 10 MG TAB PO SCH (08:00)
[2017-03-14] MEDS: FAMOTIDINE 20 MG/2 ML VIAL IV SCH (08:00)
[2017-03-14] MEDS ORDERED: POTASSIUM CHLORIDE 20 MEQ in WATER FOR INJECTION 1 100ML.BAG IVPB ONE (08:00)
[2017-03-14] MEDS: glipiZIDE 5 MG TAB PO SCH (08:00)
[2017-03-14] MEDS: HEPARIN SODIUM,PORCINE 5,000 UNIT/ML 1 ML VIAL SQ SCH ×3 (08:00→16:08)
--- NOTE | 2017-03-14 08:18 | P.CNPUL ---
History of Present Illness Consult date: 03/14/17 Chief complaint: Expiratory laparotomy, bowel resection History of present illness: 66-year-old female patient, presented to the hospital because of abdominal pain. Pain was mainly in the left lower quadrant. Patient has significant tenderness involving the left lower quadrant. There is significant tenderness to the left lower quadrant white count was elevated tachycardic heart rate in the 90s and he was sat been started on IV Zosyn. CT of the abdomen and pelvis showed inflammatory changes the pelvis and complicated sigmoid diverticulitis and 6 cm pericolonic abscess. Based on that the patient was taken to the OR and she underwent exp. laparotomy, Lysis of adhesions, Small bowel resection, Sigmoid colectomy with end colostomy and a Partial greater omentectomy. Pos op the patient was kept intubated and the patient was brought in the the ICU for further care and weaning. The patient is on a mechanical ventilator on AC of 14 , TV 450, Fio2 1005 and a PEEP of 5. The patient's ABG showed a component of metablic acidosis and the patient's serum bicarb was down to 15 he had overnight the patient was kept sedated on Diprivan. The patient was given a total of 4 L of IV fluids. 2 L of normal saline was given to her and another liter at midnight. Her current urine output is somewhat between 20-25 mL an hour. Renal function is stable. She is afebrile. She is hemodynamically stable. She is on no pressors. The serum bicarb is still low at 13 and the patient has a component of non-anion gap metabolic acidosis. Most recent blood gases from this morning showed a pH of 7.31 with a pCO2 of 32 and pO2 of 242 and this was done and FiO2 of 50% FiO2 has been down to 30 down to 35%. The patient has an NG tube in place. Output is been minimal. The abdominal wound is showing some erythema in the inferior portion of the vertical midabdominal wound and this may be late to some cellulitis. No active drainage from the wounds. No active drainage from the WEN drain. It drained only 110 mL of serosanguineous material overnight. The patient is on Zosyn and Flagyl. Note the patient was in the hospital in December 2016 and the patient at that time presented with a similar abdominal pain and the CAT scan of the abdomen showed left upper quadrant Jujenal process. Based on all this the patient was taken to the operating room and exploration was done with small bowel was run fluid Treitz and in the left upper quadrant there was a small bowel inflammatory mass. There appeared to be extension of the mass into the mesentery which yet again urned out to be an inflamatory process. The mass appeared to be inflamed. At this point a limited small bowel resection was performed by dividing the small bowel proximally distally to the mass using the linear cutter stapler. A [id number] functional end-to-end staple anastomosis created . Postop, the patient was brought into the intensive care unit intubated on a mechanical ventilator. I successfully extubated the patient and following further care she was discharged home. Review of Systems ROS unobtainable: due to endotracheal tube, due to mental status Past Medical History Past Medical History: Asthma, Coronary Artery Disease (CAD), Heart Failure, Dementia, Diabetes Mellitus, Deep Vein Thrombosis (DVT), GERD/Reflux, Hyperlipidemia, Myocardial Infarction (SC), Osteoarthritis (OA), Pneumonia, Renal Disease, Seizure Disorder, Sleep Apnea/CPAP/BIPAP, Vascular Disorder Additional Past Medical History / Comment(s): Bronchial asthma, dementia, diabetes mellitus, hyperlipidemia, coronary artery disease with previous myocardial infarction, seizure disorder many years back and the patient has not been on seizure medication. 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 Last Myocardial Infarction Date:: 1991 History of Any Multi-Drug Resistant Organisms: None Reported Past Surgical History: Adenoidectomy, Appendectomy, Bowel Resection, Cholecystectomy, Hernia Repair, Hysterectomy, Joint Replacement, Orthopedic Surgery, Tonsillectomy Additional Past Surgical History / Comment(s): exploratory laparotomy and a small bowel resection (2017), partial colon resection with colostomy then reversal, SILVERIO KNEE ARTHROSCOPY, Right KNEE REPLACEMENT, EGDs and colonoscopies, lipomas off back, cyst off spine, eye duct surgery Past Anesthesia/Blood Transfusion Reactions: Previous Problems w/ Anesthesia, Motion Sickness Additional Past Anesthesia/Blood Transfusion Reaction / Comment(s): DIFFICULTY WAKING UP. CLAUSTERPHOBIC Past Psychological History: Anxiety, Bipolar Additional Psychological History / Comment(s): DYSLEXIA but is able to read and write with some difficulty. Pt resides with her sisters, Reny who is also her legal guardian and other sister Michelle. They are her caretakers. Pt uses a walker to ambulate. She does not drive, Michelle takes her to appts. pt also has dementia and is deaf Smoking Status: Never smoker Past Alcohol Use History: None Reported Additional Past Alcohol Use History / Comment(s): STARTED SMOKNG AT AGE 16, SMOKED 1 CIG PER DAY QUIT 1982 Past Drug Use History: None Reported - Past Family History Father Family Medical History: Cancer Additional Family Medical History / Comment(s): Father had lung cancer. Mother Family Medical History: Congestive Heart Failure (CHF), Dementia, Myocardial Infarction (SC) Medications and Allergies Home Medications Medication Instructions Recorded Confirmed Type Albuterol Sulfate [Proair Hfa] 2 puff INHALATION RT-QID PRN 06/24/14 03/11/17 History Donepezil [Aricept] 10 mg PO DAILY 02/07/15 03/11/17 History Loratadine 10 mg PO QAM 06/28/16 03/11/17 History Montelukast Sodium [Singulair] 10 mg PO DAILY 06/28/16 03/11/17 History Omeprazole [PriLOSEC] 20 mg PO HS 06/28/16 03/11/17 History Memantine HCl [Namenda Xr] 28 mg PO DAILY 07/15/16 03/11/17 History risperiDONE [RisperDAL] 1 mg PO HS 08/16/16 03/11/17 History Famotidine [Pepcid] 20 mg PO DAILY 09/03/16 03/11/17 History glipiZIDE [Glucotrol] 5 mg PO DAILY 09/03/16 03/11/17 History Sertraline [Zoloft] 50 mg PO QAM 11/22/16 03/11/17 History traMADol HCL [Ultram] 50 mg PO BID PRN 11/22/16 03/11/17 History Mirtazapine 7.5 mg PO HS 11/29/16 03/11/17 History HYDROcodone/APAP 5-325MG [[place] 1 tab PO Q4HR PRN #40 tab 12/05/16 03/11/17 Rx 5-325] Allergies Allergy/AdvReac Type Severity Reaction Status Date / Time codeine Allergy Rash/Hives Verified 03/13/17 11:52 lorazepam [From Ativan] Allergy Rash/Hives Verified 03/13/17 11:52 oxaprozin [From Daypro] Allergy Rash/Hives Verified 03/13/17 11:52 Sulfa (Sulfonamide Allergy Rash/Hives Verified 03/13/17 11:52 Antibiotics) baclofen AdvReac Unknown Psychotic Verified 03/13/17 11:52 Episode cyclobenzaprine HCl AdvReac Confusion Verified 03/13/17 11:52 [From Flexeril] Physical Exam Vitals: Vital Signs Temp Pulse Pulse Resp BP BP Pulse Ox 03/13/17 19:00 81 18 133/75 100 03/13/17 18:50 85 14 133/75 100 03/13/17 18:40 94 22 133/75 100 03/13/17 18:30 82 14 135/65 100 03/13/17 18:20 85 17 135/65 100 03/13/17 18:10 85 13 135/65 100 03/13/17 18:00 82 15 135/65 100 03/13/17 17:50 91 12 147/67 100 03/13/17 17:40 88 13 147/67 100 03/13/17 17:30 87 13 127/62 100 03/13/17 17:20 90 14 112/81 100 03/13/17 17:10 91 14 112/81 100 03/13/17 17:00 98.5 F 92 14 100/58 100 03/13/17 16:50 94 13 100/58 85 L 03/13/17 16:40 93 15 95/53 100 03/13/17 16:32 96 86/45 100 03/13/17 11:53 97.6 F 86 16 127/80 98 03/13/17 08:13 92 03/13/17 08:03 92 99 03/13/17 08:00 99.9 F H 91 16 144/72 98 03/13/17 07:00 99.9 F H 91 16 144/72 98 03/12/17 23:00 98.0 F 100 18 163/73 98 Intake and Output 03/13/17 03/13/17 03/13/17 06:59 14:59 22:59 Intake Total 2750 2300 Output Total 520 Balance 2750 1780 Intake: IV 2750 2300 Dextrose 5%-0.45% NaCl 1, 1000 000 ml @ 125 mls/hr IV . Q8H [facility] Rx#:[id number] Lactated Ringers 1,000 ml 300 @ 150 mls/hr IV .Q6H40M [facility] Rx#:[id number] Sodium Chloride 0.9% 1, 1000 000 ml @ 999 mls/hr IV . Q1H1M [facility] Rx#:[id number] Sodium Chloride 0.9% 1, 1000 000 ml @ 999 mls/hr IV . Q1H1M [facility] Rx#:[id number] Output: Drainage 75 Right Lower Abdomen 75 Urine 345 Estimated Blood Loss 100 Other: Voiding Method Indwelling Catheter # Voids 4 # Bowel Movements 4 Patient is sedated, comfortable nonacute distress.Head exam was generally normal. There was no scleral icterus or corneal arcus. Mucous membranes were moist. Patient has a orogastric and orotracheal tube in place. The patient has a 7.5 orotracheal tube. The patient also has a right IJ triple-lumen catheter in place.Neck was supple and without jugular venous distension, thyromegaly, or carotid bruits. Carotids were easily palpable bilaterally. There was no adenopathy.Lungs were clear to auscultation and percussion, and with normal diaphragmatic excursion. No wheezes or rales were noted. Cardiac exam revealed the PMI to be normally situated and sized. The rhythm was regular and no extrasystoles were noted during several minutes of auscultation. The first and second heart sounds were normal and physiologic splitting of the second heart sound was noted. There were no murmurs, rubs, clicks, or gallops. Abdomen is soft there is a mid incisional wound which is not draining at this point. There is some erythema and a portion of the wound and it is extending somewhat between 4 x 4 centimeters in size and there is no active drainage. Possibly cellulitis.Examination of the extremities revealed easily palpable radial, femoral and pedal pulses. There was no cyanosis, clubbing or edema. Neurologically the patient is sedated yet she withdraws to painful stimuli. Skeletal examination shows no deformities or arthritis. Results - Laboratory Findings CBC and BMP: 03/14/17 04:34 03/14/17 04:34 ABG ABG pH 7.33 (7.35-7.45) L 03/13/17 17:17 ABG pCO2 32 mmHg (35-45) L 03/13/17 17:17 ABG pO2 >400 mmHg (83-108) H 03/13/17 17:17 ABG O2 Saturation 100.0 % (94-97) H 03/13/17 17:17 PT/INR, D-dimer PT 11.5 sec (9.0-12.0) 03/13/17 17:25 INR 1.1 (<1.2) 03/13/17 17:25 Abnormal lab findings: Abnormal Labs 03/11/17 03/11/17 03/11/17 13:23 13:23 15:18 WBC 17.0 H Plt Count 137 L Neutrophils # 15.6 H Lymphocytes # 0.5 L PT INR ABG pH ABG pCO2 ABG pO2 ABG HCO3 ABG Total CO2 ABG O2 Saturation Sodium 135 L Potassium Chloride Carbon Dioxide 20 L Glucose POC Glucose (mg/dL) Calcium Magnesium AST ALT Alkaline Phosphatase C-Reactive Protein 189.7 H Total Protein 6.1 L Albumin 3.4 L Amylase 231 H Urine Protein Trace H Urine Blood Moderate H Urine Mucus Rare H 03/12/17 03/12/17 03/12/17 07:13 07:38 07:56 WBC 13.9 H Plt Count 111 L Neutrophils # 13.0 H Lymphocytes # 0.3 L PT INR ABG pH ABG pCO2 ABG pO2 ABG HCO3 ABG Total CO2 ABG O2 Saturation Sodium 136 L Potassium Chloride 108 H Carbon Dioxide 20 L Glucose 106 H POC Glucose (mg/dL) 108 H Calcium 8.2 L Magnesium AST 76 H ALT 131 H Alkaline Phosphatase 161 H C-Reactive Protein Total Protein 5.0 L Albumin 2.6 L Amylase Urine Protein Urine Blood Urine Mucus 03/12/17 03/12/17 03/12/17 09:35 22:06 22:26 WBC Plt Count Neutrophils # Lymphocytes # PT 12.2 H INR 1.2 H ABG pH ABG pCO2 ABG pO2 ABG HCO3 ABG Total CO2 ABG O2 Saturation Sodium Potassium Chloride Carbon Dioxide Glucose POC Glucose (mg/dL) 57 L 61 L Calcium Magnesium AST ALT Alkaline Phosphatase C-Reactive Protein Total Protein Albumin Amylase Urine Protein Urine Blood Urine Mucus 03/12/17 03/13/17 03/13/17 23:58 06:22 07:01 WBC Plt Count Neutrophils # Lymphocytes # PT INR ABG pH ABG pCO2 ABG pO2 ABG HCO3 ABG Total CO2 ABG O2 Saturation Sodium Potassium Chloride Carbon Dioxide Glucose POC Glucose (mg/dL) 109 H 105 H 101 H Calcium Magnesium AST ALT Alkaline Phosphatase C-Reactive Protein Total Protein Albumin Amylase Urine Protein Urine Blood Urine Mucus 03/13/17 03/13/17 03/13/17 07:33 11:27 15:30 WBC 13.4 H Plt Count 128 L Neutrophils # 12.3 H Lymphocytes # 0.4 L PT INR ABG pH ABG pCO2 ABG pO2 ABG HCO3 ABG Total CO2 ABG O2 Saturation Sodium Potassium Chloride Carbon Dioxide Glucose POC Glucose (mg/dL) 111 H 100 H Calcium Magnesium AST ALT Alkaline Phosphatase C-Reactive Protein Total Protein Albumin Amylase Urine Protein Urine Blood Urine Mucus 03/13/17 03/13/17 03/13/17 16:32 17:17 17:25 WBC 11.6 H Plt Count 111 L Neutrophils # 10.7 H Lymphocytes # 0.3 L PT INR ABG pH 7.33 L ABG pCO2 32 L ABG pO2 >400 H ABG HCO3 17 L ABG Total CO2 18 L ABG O2 Saturation 100.0 H Sodium Potassium Chloride Carbon Dioxide Glucose POC Glucose (mg/dL) 100 H Calcium Magnesium AST ALT Alkaline Phosphatase C-Reactive Protein Total Protein Albumin Amylase Urine Protein Urine Blood Urine Mucus 03/13/17 03/13/17 03/13/17 18:18 19:00 20:49 WBC Plt Count Neutrophils # Lymphocytes # PT INR ABG pH ABG pCO2 ABG pO2 ABG HCO3 ABG Total CO2 ABG O2 Saturation Sodium Potassium 5.4 H Chloride 111 H Carbon Dioxide 15 L Glucose 126 H POC Glucose (mg/dL) 115 H 122 H Calcium 7.6 L Magnesium 1.5 L AST ALT 56 H Alkaline Phosphatase C-Reactive Protein Total Protein 5.2 L Albumin 2.4 L Amylase Urine Protein Urine Blood Urine Mucus - Diagnostic Findings Chest x-ray: image reviewed Assessment and Plan Plan: Assessment 1 exploratory laparotomy, sigmoid resection, and colostomy, lysis of adhesions and partial omentectomy. The patient is postop day #1. The patient was found to have a complicated diverticulitis of the sigmoid with intra-abdominal abscess formation. Currently on a combination of Zosyn and Flagyl. Hemodynamically stable. The patient is on no pressors. The patient is producing adequate amount of urine output 2 small bowel resection in December 2016 which turned out to be an inflammatory mass rather than a true malignancy. The patient recovered from that without any major difficulties. 3 postoperative ventilator dependence. The patient was brought into the intensive care unit intubated on a mechanical ventilator. There was concern of the patient's comorbidities will hinder her ability to wean successfully from the mechanical ventilator and the patient was not extubated in the operating room. Chest x-rays clear and the blood gases are showing a component of right eyeball it acidosis which is of a non-anion gap type. 4 dementia, 5 diabetes mellitus, maintained on oral hypoglycemics and the patient will be placed on this a scale coverage for now 6 hyperlipidemia 7 coronary artery disease with previous myocardial infarction 8 seizure disorder many years back and the patient has not been on seizure medication. Her last seizure was back in the 70s., 9 sleep apnea, obstructive sleep apnea with suboptimal compliance to CPAP therapy 10 recent fall with a nasal fracture 11 chronic anemia 12 peripheral vascular disease 13 diverticulosis, with previous history of bowel resection, colostomy and subsequent reversal. 14 cardiac murmur 15 remote history of DVT 16 bipolar disorder 17 chronic bronchial asthma 18 non-anion gap metabolic acidosis Plan We'll switch the patient's IV fluid to D5 with TMs of bicarb at the rate of 100 mL an hour. We will correct the bicarb deficit. We will wean off the Diprivan. Assess the readiness to wean. Check is at her weaning parameters and see the patient is potentially extubated blood today. She may be potentially difficult wean because of her comorbidities and underlying dementia. I was told that she was not following commands or conversing preoperatively. Continue current antibiotic coverage. Monitor the output from the WEN drain. Monitor the abdominal cellulitis is being seen and this will be further discussed by the surgeon. The patient is on heparin subcu for DVT prophylaxis. We'll continue to follow. Time with Patient: Greater than 30
--- NOTE | 2017-03-14 08:21 | XR ---
EXAMINATION TYPE: XR chest 1V portable DATE OF EXAM: 03/14/2017 COMPARISON: Prior chest x-ray 03/13/2017 HISTORY: Intubated TECHNIQUE: Single frontal view of the chest is obtained. FINDINGS: Endotracheal tube, NG tube, overlying cardiac leads, right jugular central venous catheter are present, NG tube has advanced and the distal tip is not included on the exam. Patchy basilar den sity is noted. Patient is rotated. Heart may be enlarged. No evident pneumothorax or pleural effusion . There are overlying artifacts. IMPRESSION: Rotated exam. Interval repositioning of the NG tube. Central venous catheter within the right atrium. There may be cardiomegaly. Basilar atelectasis.
[2017-03-14] MEDS: DEXTROSE 5% IV SCH ×4 (09:22→21:58)
[2017-03-14] MEDS: SOD BICARB IV SCH ×4 (09:22→21:58)
[2017-03-14] MEDS: WATER IV SCH ×4 (09:22→21:58)
[2017-03-14] MEDS: DONEPEZIL 10 MG TAB PO SCH (09:35)
[2017-03-14] MEDS: SERTRALINE 50 MG TAB PO SCH (09:35)
[2017-03-14] MEDS: metroNIDAZOLE 500 MG TAB PO SCH (09:35)
[2017-03-14] MEDS: LORATADINE 10 MG TAB PO SCH (09:36)
[2017-03-14] MEDS ORDERED: SODIUM BICARB 8.4% 50 ML SYR (1 MEQ/ML) IV STA (09:46)
[2017-03-14 09:56] LABS: ABG Base Excess -9.9 mmol/L; ABG HCO3 15 mmol/L (21-25); ABG PCO2 31 mmHg (35-45); ABG PH 7.31 (7.35-7.45); ABG PO2 144 mmHg (83-108); ABG TCO2 16 mmol/L (19-24)
[2017-03-14 12:08] LABS: Glucose,Whole Blood 138 mg/dL (75-99)
--- NOTE | 2017-03-14 12:55 | P.PN ---
Subjective Progress Note Date: 03/14/17 66-year-old female being seen and examined in the ICU this morning currently is orally intubated and on mechanical ventilator assist control 14 tidal volume 450 FiO2 35 with a PEEP of 5 sedation has been turned off in anticipation of possible extubation this morning per pulmonary service Hemoglobin this morning 10.6 electrolytes reviewed within normal limits white count 12.6 Patient is postop day 11 of March exploratory laparotomy, lysis of adhesion, small bowel resection, sigmoid colectomy with end colostomy. Objective - Vital Signs Vital signs: Vital Signs Temp 99 F 03/14/17 12:00 Pulse 102 H 03/14/17 12:00 Resp 16 03/14/17 12:00 BP 141/63 03/14/17 12:00 Pulse Ox 99 03/14/17 12:00 Intake & Output 03/13/17 03/14/17 03/14/17 18:59 06:59 18:59 Intake Total 3050 5699.944 713.811 Output Total 505 287 355 Balance 2545 5412.944 358.811 Weight 66.9 kg Intake: IV 3050 5575 700 Dextrose 5% in Water 1, 250 000 ml @ 100 mls/hr IV . [id number] [facility] with Sod Bicarb Syr 8.4% (1 Meq/ml ) 150 ml Rx#:[id number] Dextrose 5%-0.45% NaCl 1, 1000 000 ml @ 125 mls/hr IV . Q8H [facility] Rx#:[id number] Lactated Ringers 1,000 ml 300 @ 150 mls/hr IV .Q6H40M [facility] Rx#:[id number] Magnesium Sulfate-D5w Pmx 200 1 gm In Dextrose/Water 1 100ml.bag @ 100 mls/hr IVPB Q1H [facility] Rx#: [id number] Piperacillin-Tazobactam 3 25 .375 gm In Dextrose/Water 1 50ml.bag @ 12.5 mls/hr IVPB Q8HR [facility] Rx#: [id number] Sodium Chloride 0.9% 1, 1350 450 000 ml @ 150 mls/hr IV . Q6H40M [facility] Rx#:[id number] Sodium Chloride 0.9% 1, 1000 000 ml @ 999 mls/hr IV . Q1H1M [facility] Rx#:[id number] Sodium Chloride 0.9% 1, 3000 000 ml @ 999 mls/hr IV . Q1H1M [facility] Rx#:[id number] Intake, IV Titration 124.944 13.811 Amount Propofol 1,000 mg In 100 124.944 13.811 ml @ Titrate IV .Q0M [facility] Rx#:[id number] Output: Drainage 75 40 140 Right Lower Abdomen 75 40 140 Urine 330 247 215 Estimated Blood Loss 100 Other: Voiding Method Indwelling Catheter Indwelling Catheter Indwelling Catheter - Exam Physical exam 66-year-old female orally intubated on vent support sedation assessment turned off appears in no acute distress Lungs anterior diminished at the bases otherwise adequate air movement no wheezing noted Heart S1-S2 audible regular no murmur noted Abdomen ostomy stoma pink left lower quadrant scant amount of drainage in the ostomy bag surgical dressing dry WEN drain in place soft not distended. Hypoactive bowel tones nasal gastric tube in place Extremities Venodyne's on to the bilateral lower extremities Skin moderate erythema cellulitis noted to the left suprapubic area - Labs CBC & Chem 7: 03/14/17 04:34 03/14/17 04:34 Labs: Abnormal Lab Results - Last 24 Hours (Table) 03/13/17 03/13/17 03/13/17 Range/Units 15:30 16:32 17:17 WBC (3.8-10.6) k/uL RBC (3.80-5.40) m/uL Hgb (11.4-16.0) gm/dL MCHC (31.0-37.0) g/dL Plt Count (150-450) k/uL Neutrophils # (1.3-7.7) k/uL Lymphocytes # (1.0-4.8) k/uL ABG pH 7.33 L (7.35-7.45) ABG pCO2 32 L (35-45) mmHg ABG pO2 >400 H (83-108) mmHg ABG HCO3 17 L (21-25) mmol/L ABG Total CO2 18 L (19-24) mmol/L ABG O2 Saturation 100.0 H (94-97) % Potassium (3.5-5.1) mmol/L Chloride (98-107) mmol/L Carbon Dioxide (22-30) mmol/L Creatinine (0.52-1.04) mg/dL Glucose (74-99) mg/dL POC Glucose (mg/dL) 100 H 100 H (75-99) mg/dL Calcium (8.4-10.2) mg/dL Magnesium (1.6-2.3) mg/dL ALT (9-52) U/L Total Protein (6.3-8.2) g/dL Albumin (3.5-5.0) g/dL 03/13/17 03/13/17 03/13/17 Range/Units 17:25 18:18 19:00 WBC 11.6 H (3.8-10.6) k/uL RBC (3.80-5.40) m/uL Hgb (11.4-16.0) gm/dL MCHC (31.0-37.0) g/dL Plt Count 111 L (150-450) k/uL Neutrophils # 10.7 H (1.3-7.7) k/uL Lymphocytes # 0.3 L (1.0-4.8) k/uL ABG pH (7.35-7.45) ABG pCO2 (35-45) mmHg ABG pO2 (83-108) mmHg ABG HCO3 (21-25) mmol/L ABG Total CO2 (19-24) mmol/L ABG O2 Saturation (94-97) % Potassium 5.4 H (3.5-5.1) mmol/L Chloride 111 H (98-107) mmol/L Carbon Dioxide 15 L (22-30) mmol/L Creatinine (0.52-1.04) mg/dL Glucose 126 H (74-99) mg/dL POC Glucose (mg/dL) 115 H (75-99) mg/dL Calcium 7.6 L (8.4-10.2) mg/dL Magnesium 1.5 L (1.6-2.3) mg/dL ALT 56 H (9-52) U/L Total Protein 5.2 L (6.3-8.2) g/dL Albumin 2.4 L (3.5-5.0) g/dL 03/13/17 03/14/17 03/14/17 Range/Units 20:49 03:15 03:16 WBC (3.8-10.6) k/uL RBC (3.80-5.40) m/uL Hgb (11.4-16.0) gm/dL MCHC (31.0-37.0) g/dL Plt Count (150-450) k/uL Neutrophils # (1.3-7.7) k/uL Lymphocytes # (1.0-4.8) k/uL ABG pH (7.35-7.45) ABG pCO2 (35-45) mmHg ABG pO2 (83-108) mmHg ABG HCO3 (21-25) mmol/L ABG Total CO2 (19-24) mmol/L ABG O2 Saturation (94-97) % Potassium (3.5-5.1) mmol/L Chloride (98-107) mmol/L Carbon Dioxide (22-30) mmol/L Creatinine (0.52-1.04) mg/dL Glucose (74-99) mg/dL POC Glucose (mg/dL) 122 H 205 H 176 H (75-99) mg/dL Calcium (8.4-10.2) mg/dL Magnesium (1.6-2.3) mg/dL ALT (9-52) U/L Total Protein (6.3-8.2) g/dL Albumin (3.5-5.0) g/dL 03/14/17 03/14/17 03/14/17 Range/Units 04:34 04:34 05:55 WBC 12.6 H (3.8-10.6) k/uL RBC 3.69 L (3.80-5.40) m/uL Hgb 10.6 L (11.4-16.0) gm/dL MCHC 30.2 L (31.0-37.0) g/dL Plt Count 129 L (150-450) k/uL Neutrophils # 11.3 H (1.3-7.7) k/uL Lymphocytes # 0.6 L (1.0-4.8) k/uL ABG pH 7.31 L (7.35-7.45) ABG pCO2 32 L (35-45) mmHg ABG pO2 242 H (83-108) mmHg ABG HCO3 16 L (21-25) mmol/L ABG Total CO2 16 L (19-24) mmol/L ABG O2 Saturation 100.0 H (94-97) % Potassium (3.5-5.1) mmol/L Chloride 115 H (98-107) mmol/L Carbon Dioxide 13 L (22-30) mmol/L Creatinine 1.20 H (0.52-1.04) mg/dL Glucose 173 H (74-99) mg/dL POC Glucose (mg/dL) (75-99) mg/dL Calcium 7.2 L (8.4-10.2) mg/dL Magnesium (1.6-2.3) mg/dL ALT (9-52) U/L Total Protein (6.3-8.2) g/dL Albumin (3.5-5.0) g/dL 03/14/17 03/14/17 Range/Units 09:35 12:06 WBC (3.8-10.6) k/uL RBC (3.80-5.40) m/uL Hgb (11.4-16.0) gm/dL MCHC (31.0-37.0) g/dL Plt Count (150-450) k/uL Neutrophils # (1.3-7.7) k/uL Lymphocytes # (1.0-4.8) k/uL ABG pH 7.31 L (7.35-7.45) ABG pCO2 31 L (35-45) mmHg ABG pO2 144 H (83-108) mmHg ABG HCO3 15 L (21-25) mmol/L ABG Total CO2 16 L (19-24) mmol/L ABG O2 Saturation 99.0 H (94-97) % Potassium (3.5-5.1) mmol/L Chloride (98-107) mmol/L Carbon Dioxide (22-30) mmol/L Creatinine (0.52-1.04) mg/dL Glucose (74-99) mg/dL POC Glucose (mg/dL) 138 H (75-99) mg/dL Calcium (8.4-10.2) mg/dL Magnesium (1.6-2.3) mg/dL ALT (9-52) U/L Total Protein (6.3-8.2) g/dL Albumin (3.5-5.0) g/dL Microbiology - Last 24 Hours (Table) 03/13/17 15:45 Gram Stain - Preliminary Groin Wound Culture - Preliminary 03/13/17 15:45 Anaerobic Culture - Preliminary Groin 03/12/17 20:10 Blood Culture - Preliminary Blood No Growth after 24 hours 03/11/17 13:23 Blood Culture Gram Stain - Final Blood Blood Culture - Final Staphylococcus epidermidis 03/12/17 10:51 Blood Culture - Preliminary Blood No Growth after 24 hours Assessment and Plan Plan: Impression Present on admission abdominal pain left lower quadrant onset 2 days prior suspect due to 6 cm peridiverticular abscess anterior to the mid sigmoid colon History of a recent 11/30/2016 exploratory laparotomy lysis of adhesions 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 History of Parkinson's Dementia no behavior disturbance Coronary artery disease with prior myocardial infarction Seizure disorder last seizure in the 70s Chronic anemia Peripheral vascular disease Status post March 13 exploratory laparotomy, lysis of adhesions, small bowel resection, sigmoid colectomy with end colostomy Plan Continue postop surgical care IV Zosyn as ordered ICU care per the bag grader DVT and GI prophylaxis Home meds as appropriate Follow up on urine and blood & wound cultures Pain control The above impression and plan of care have been discussed and directed by signing physician. Danuta Ocampo nurse practitioner acting as scribe for signing physician.
[2017-03-14 13:43] LABS: Glucose,Whole Blood 147 mg/dL (75-99)
[2017-03-14] MEDS: INSULIN LISPRO (humaLOG) 300 UNIT/3 ML VIAL SQ SCH ×2 (15:09→18:43)
--- NOTE | 2017-03-14 17:00 | P.PN ---
Subjective Progress Note Date: 03/14/17 03/12/2017 This is a 66 year old female who presented to the ER with a chief complaint of abdominal pain. The patient was brought in by her sister, Reny, who is also her legal guardian. Her abdominal pain has been present for approximately 2 days. In the emergency room, a CT scan of the abdomen and pelvis was completed which revealed inflammatory changes in the pelvis suggestive of a 6 cm peridiverticular abscess anterior to the mid sigmoid colon. A chest x-ray was completed which was unremarkable. The patient has underwent prior abdominal surgeries. 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 The patient was admitted to the hospital under the care of Dr. Leal. A consult was placed to Dr. Golden, the patient's PCP, for medical management. Consults were also placed to interventional radiology for possible drainage of the abscess. The patient was seen and examined this morning at the bedside with Dr. Golden. There is no family present at this time. The patient is very lethargic this morning. She would not open her eyes. She does have a history of dementia. However she would answer questions and nod appropriately. She denies chest pain or shortness of breath. Bowel sounds are present. She did have severe pain when her right lower quadrant was palpated, however she denied pain upon palpation of left quadrant. However, it is noted that the patient had left quadrant pain when palpated per surgery's note. Her white count was elevated on admission at 17.0. It is 13.9 this morning. She is receiving zosyn. 03/13/2017 Patient seen and examined this morning. She appears more awake this morning. Able to open eyes. Continues to complain of right side abdominal pain but she states it is improved since yesterday. She is NPO for surgery today with Dr. Leal. Procedure planned is drainage of pelvic abscess, sigmoid colectomy, and colostomy. She was hypoglycemic last night with a BS of 57 and 61. This morning she is 101. Dr. Golden started the patient on D5.45 @ 125cc/hr. Her temperatute this morning is 99.9F. Her Tmax over the last [address] Dey, infectious disease, is also on consult. The patient remains on Vanco , Zosyn, and Flagyl. 03/14/2017 Patient seen and examined this morning by Dr. Golden. Patient underwent an exploratory laparotomy, lysis of adhesions, small bowel resection, and sigmoid colectomy with end colostomy. The patient remained on the ventilator after surgery and was transferred to the ICU. The patients urine output was low and she was bolused with normal saline. Her vital signs remained stable. her white count this morning is 12.6 and hemoglobin is 10.6. WEN drain is present. Her surgical incision site does have some erythema present and resembles a cellulitis. She remains on zosyn and flagyl. The patient underwent a CPAP trial this morning and was successfully extubated. Objective - Vital Signs Vital signs: Vital Signs Temp 98.1 F 03/14/17 08:00 Pulse 89 03/14/17 11:39 Resp 18 03/14/17 11:00 BP 124/70 03/14/17 11:00 Pulse Ox 99 03/14/17 11:00 Intake & Output 03/13/17 03/14/17 03/14/17 18:59 06:59 18:59 Intake Total 3050 5699.944 513.811 Output Total 505 287 260 Balance 2545 5412.944 253.811 Weight 66.9 kg Intake: IV 3050 5575 500 Dextrose 5% in Water 1, 50 000 ml @ 100 mls/hr IV . [id number] [facility] with Sod Bicarb Syr 8.4% (1 Meq/ml ) 150 ml Rx#:[id number] Dextrose 5%-0.45% NaCl 1, 1000 000 ml @ 125 mls/hr IV . Q8H [facility] Rx#:[id number] Lactated Ringers 1,000 ml 300 @ 150 mls/hr IV .Q6H40M [facility] Rx#:[id number] Magnesium Sulfate-D5w Pmx 200 1 gm In Dextrose/Water 1 100ml.bag @ 100 mls/hr IVPB Q1H [facility] Rx#: [id number] Piperacillin-Tazobactam 3 25 .375 gm In Dextrose/Water 1 50ml.bag @ 12.5 mls/hr IVPB Q8HR [facility] Rx#: [id number] Sodium Chloride 0.9% 1, 1350 450 000 ml @ 150 mls/hr IV . Q6H40M [facility] Rx#:[id number] Sodium Chloride 0.9% 1, 1000 000 ml @ 999 mls/hr IV . Q1H1M [facility] Rx#:[id number] Sodium Chloride 0.9% 1, 3000 000 ml @ 999 mls/hr IV . Q1H1M [facility] Rx#:[id number] Intake, IV Titration 124.944 13.811 Amount Propofol 1,000 mg In 100 124.944 13.811 ml @ Titrate IV .Q0M [facility] Rx#:[id number] Output: Drainage 75 40 140 Right Lower Abdomen 75 40 140 Urine 330 247 120 Estimated Blood Loss 100 Other: Voiding Method Indwelling Catheter Indwelling Catheter Indwelling Catheter - Exam GENERAL: Somewhat sleepy. Nods head appropriately to questions. RESPIRATORY: Lungs clear bilaterally. No use of accessory muscles. Patient maintaining oxygen saturation greater than 92%. CARDIOVASCULAR: S1 and S2 noted. No murmurs auscultated. No JVD noted. EXTREMITIES: No edema noted. Palpable pedal pulses +2. ABDOMEN: No distention noted. Abdomen soft and round. WEN drain in place. Dressing to abdominal surgical site noted. - Labs CBC & Chem 7: 03/14/17 04:34 03/14/17 04:34 Labs: Abnormal Lab Results - Last 24 Hours (Table) 03/13/17 03/13/17 03/13/17 Range/Units 15:30 16:32 17:17 WBC (3.8-10.6) k/uL RBC (3.80-5.40) m/uL Hgb (11.4-16.0) gm/dL MCHC (31.0-37.0) g/dL Plt Count (150-450) k/uL Neutrophils # (1.3-7.7) k/uL Lymphocytes # (1.0-4.8) k/uL ABG pH 7.33 L (7.35-7.45) ABG pCO2 32 L (35-45) mmHg ABG pO2 >400 H (83-108) mmHg ABG HCO3 17 L (21-25) mmol/L ABG Total CO2 18 L (19-24) mmol/L ABG O2 Saturation 100.0 H (94-97) % Potassium (3.5-5.1) mmol/L Chloride (98-107) mmol/L Carbon Dioxide (22-30) mmol/L Creatinine (0.52-1.04) mg/dL Glucose (74-99) mg/dL POC Glucose (mg/dL) 100 H 100 H (75-99) mg/dL Calcium (8.4-10.2) mg/dL Magnesium (1.6-2.3) mg/dL ALT (9-52) U/L Total Protein (6.3-8.2) g/dL Albumin (3.5-5.0) g/dL 03/13/17 03/13/17 03/13/17 Range/Units 17:25 18:18 19:00 WBC 11.6 H (3.8-10.6) k/uL RBC (3.80-5.40) m/uL Hgb (11.4-16.0) gm/dL MCHC (31.0-37.0) g/dL Plt Count 111 L (150-450) k/uL Neutrophils # 10.7 H (1.3-7.7) k/uL Lymphocytes # 0.3 L (1.0-4.8) k/uL ABG pH (7.35-7.45) ABG pCO2 (35-45) mmHg ABG pO2 (83-108) mmHg ABG HCO3 (21-25) mmol/L ABG Total CO2 (19-24) mmol/L ABG O2 Saturation (94-97) % Potassium 5.4 H (3.5-5.1) mmol/L Chloride 111 H (98-107) mmol/L Carbon Dioxide 15 L (22-30) mmol/L Creatinine (0.52-1.04) mg/dL Glucose 126 H (74-99) mg/dL POC Glucose (mg/dL) 115 H (75-99) mg/dL Calcium 7.6 L (8.4-10.2) mg/dL Magnesium 1.5 L (1.6-2.3) mg/dL ALT 56 H (9-52) U/L Total Protein 5.2 L (6.3-8.2) g/dL Albumin 2.4 L (3.5-5.0) g/dL 03/13/17 03/14/17 03/14/17 Range/Units 20:49 03:15 03:16 WBC (3.8-10.6) k/uL RBC (3.80-5.40) m/uL Hgb (11.4-16.0) gm/dL MCHC (31.0-37.0) g/dL Plt Count (150-450) k/uL Neutrophils # (1.3-7.7) k/uL Lymphocytes # (1.0-4.8) k/uL ABG pH (7.35-7.45) ABG pCO2 (35-45) mmHg ABG pO2 (83-108) mmHg ABG HCO3 (21-25) mmol/L ABG Total CO2 (19-24) mmol/L ABG O2 Saturation (94-97) % Potassium (3.5-5.1) mmol/L Chloride (98-107) mmol/L Carbon Dioxide (22-30) mmol/L Creatinine (0.52-1.04) mg/dL Glucose (74-99) mg/dL POC Glucose (mg/dL) 122 H 205 H 176 H (75-99) mg/dL Calcium (8.4-10.2) mg/dL Magnesium (1.6-2.3) mg/dL ALT (9-52) U/L Total Protein (6.3-8.2) g/dL Albumin (3.5-5.0) g/dL 03/14/17 03/14/17 03/14/17 Range/Units 04:34 04:34 05:55 WBC 12.6 H (3.8-10.6) k/uL RBC 3.69 L (3.80-5.40) m/uL Hgb 10.6 L (11.4-16.0) gm/dL MCHC 30.2 L (31.0-37.0) g/dL Plt Count 129 L (150-450) k/uL Neutrophils # 11.3 H (1.3-7.7) k/uL Lymphocytes # 0.6 L (1.0-4.8) k/uL ABG pH 7.31 L (7.35-7.45) ABG pCO2 32 L (35-45) mmHg ABG pO2 242 H (83-108) mmHg ABG HCO3 16 L (21-25) mmol/L ABG Total CO2 16 L (19-24) mmol/L ABG O2 Saturation 100.0 H (94-97) % Potassium (3.5-5.1) mmol/L Chloride 115 H (98-107) mmol/L Carbon Dioxide 13 L (22-30) mmol/L Creatinine 1.20 H (0.52-1.04) mg/dL Glucose 173 H (74-99) mg/dL POC Glucose (mg/dL) (75-99) mg/dL Calcium 7.2 L (8.4-10.2) mg/dL Magnesium (1.6-2.3) mg/dL ALT (9-52) U/L Total Protein (6.3-8.2) g/dL Albumin (3.5-5.0) g/dL 03/14/17 Range/Units 09:35 WBC (3.8-10.6) k/uL RBC (3.80-5.40) m/uL Hgb (11.4-16.0) gm/dL MCHC (31.0-37.0) g/dL Plt Count (150-450) k/uL Neutrophils # (1.3-7.7) k/uL Lymphocytes # (1.0-4.8) k/uL ABG pH 7.31 L (7.35-7.45) ABG pCO2 31 L (35-45) mmHg ABG pO2 144 H (83-108) mmHg ABG HCO3 15 L (21-25) mmol/L ABG Total CO2 16 L (19-24) mmol/L ABG O2 Saturation 99.0 H (94-97) % Potassium (3.5-5.1) mmol/L Chloride (98-107) mmol/L Carbon Dioxide (22-30) mmol/L Creatinine (0.52-1.04) mg/dL Glucose (74-99) mg/dL POC Glucose (mg/dL) (75-99) mg/dL Calcium (8.4-10.2) mg/dL Magnesium (1.6-2.3) mg/dL ALT (9-52) U/L Total Protein (6.3-8.2) g/dL Albumin (3.5-5.0) g/dL Microbiology - Last 24 Hours (Table) 03/13/17 15:45 Gram Stain - Preliminary Groin Wound Culture - Preliminary 03/13/17 15:45 Anaerobic Culture - Preliminary Groin 03/12/17 20:10 Blood Culture - Preliminary Blood No Growth after 24 hours 03/11/17 13:23 Blood Culture Gram Stain - Final Blood Blood Culture - Final Staphylococcus epidermidis 03/12/17 10:51 Blood Culture - Preliminary Blood No Growth after 24 hours Assessment and Plan Plan: ASSESSMENT: -Abdominal pain, present on admission, likely secondary to 6 cm peridiverticular abscess anterior to the mid sigmoid colon -s/p exploratory laparotomy, lysis of adhesions, and bowel resection with colostomy, POD #1. -History of recent exploratory laparotomy with lysis of adhesions and 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 -History of dementia -History of coronary artery disease with myocardial infarction -Diabetes mellitus, type II -Hypoglycemia, secondary to NPO status, improving PLAN: -Continue care per Dr Leal and enterprise sales executive -Infectious disease on consult -Continue Zosyn and Flagyl per infectious disease -Monitor labs -Pain Control -GI prophylaxis: Pepcid 20mg IV daily -DVT prophylaxis: Heparin 5000 units subcu every 8 hours -Monitor vital signs and address as appropriate -Monitor capillary blood glucose -Humalog sliding scale coverage The above impression and plan of care have been discussed and directed by signing physician. Torie Willett, nurse practitioner, acting as scribe for signing physician.
[2017-03-14 18:42] LABS: Glucose,Whole Blood 120 mg/dL (75-99)
[2017-03-14] MEDS: risperiDONE 1 MG TAB PO SCH (19:59)
[2017-03-14] MEDS: PANTOPRAZOLE 40 MG TABLET PO SCH (19:59)
[2017-03-14] MEDS: CHLORHEXIDINE GLUCONATE 15 ML CUP MUCOUS MEM SCH (19:59)
[2017-03-14] MEDS: MIRTAZAPINE 15 MG TAB PO SCH (19:59)
[2017-03-14 20:06] LABS: Glucose,Whole Blood 134 mg/dL (75-99)
[2017-03-14 21:01] LABS: Hemoglobin A1C 5.3 % (4.2-6.1)
--- NOTE | 2017-03-14 22:19 | PN ---
PROGRESS NOTE DATE OF SERVICE: 03/14/2017. REASON FOR FOLLOWUP: Abdominal abscess. INTERVAL HISTORY: The patient is status post laparotomy yesterday, where the patient did have lysis of adhesion, small-bowel resection as well as right colectomy and end-colostomy. Subsequently patient has been admitted into the ICU, intubated on the vent. The patient is hemodynamically stable, not on pressor support. She was unable to provide any history. EXAMINATION: Blood pressure is 126/55 with a pulse of 130, temperature 98.3. She is 96% on 50% FiO2. GENERAL DESCRIPTION: An elderly female lying in bed in no distress. RESPIRATORY SYSTEM: Unlabored breathing. Clear to auscultation anteriorly. HEART: S1, S2. Regular rate and rhythm. ABDOMEN: Soft. No tenderness. LABS: Hemoglobin is 10.3, white count of 12.6. BUN of 12, creatinine 1.20. Abdominal culture showing a gram-negative. DIAGNOSTIC IMPRESSION AND PLAN: 1. Patient with an abdominal abscess from ruptured diverticulitis, status post laparotomy with right colectomy, end-colostomy and drainage of the abscess. Culture showing gram-negative. The patient to continue on Zosyn at this point. 2. Positive blood culture with a coagulase-negative Staphylococcus, likely skin contamination. Vancomycin was discontinued. Repeat blood culture negative. MMODL / IJN: [id number] /
[2017-03-15 00:15] LABS: Glucose,Whole Blood 129 mg/dL (75-99)
[2017-03-15] MEDS: INSULIN LISPRO (humaLOG) 300 UNIT/3 ML VIAL SQ SCH ×4 (00:16→19:28)
[2017-03-15] MEDS: PIPERACILLIN-TAZOBACTAM 3.375 GM in DEXTROSE/WATER 1 50ML.BAG IVPB SCH ×4 (00:19→23:49)
[2017-03-15] MEDS: HEPARIN SODIUM,PORCINE 5,000 UNIT/ML 1 ML VIAL SQ SCH ×4 (00:19→23:49)
[2017-03-15 05:18] LABS: Basophils % (A) 0 %; CH 28.9; CHCM 32.7; Eosinophils # (A) 0.2 k/uL (0-0.7); Eosinophils % (A) 2 %; HCT 28.4 % (34.0-46.0); HDW 2.38; Luc # (Auto) 0.07; Luc % (Auto) 1; Lymphocytes # (A) 0.4 k/uL (1.0-4.8); Lymphocytes % (A) 5 %; MCH 28.6 pg (25.0-35.0); MCHC 32.3 g/dL (31.0-37.0); Mean Platelet Volume 7.6; Monocytes # (A) 0.5 k/uL (0-1.0); Monocytes % (A) 6 %; Neutrophils # (A) 7.1 k/uL (1.3-7.7); Neutrophils % (A) 86 %; RBC 3.19 m/uL (3.80-5.40); RDW 14.5 % (11.5-15.5); WBC 8.2 k/uL (3.8-10.6); WBC (Perox) 8.95
[2017-03-15 05:27] LABS: HGB 9.1 gm/dL (11.4-16.0)
[2017-03-15 05:32] LABS: Calcium 7.5 mg/dL (8.4-10.2); Magnesium 2.1 mg/dL (1.6-2.3); Phosphorus 2.3 mg/dL (2.5-4.5)
[2017-03-15 05:44] LABS: Potassium 3.1 mmol/L (3.5-5.1)
[2017-03-15] MEDS ORDERED: POTASSIUM CHLORIDE 20 MEQ in WATER FOR INJECTION 1 100ML.BAG IVPB ONE (06:02)
[2017-03-15] MEDS ORDERED: POTASSIUM PHOSPHATE 10 MMOL in SODIUM CHLORIDE 0.9% 100 ML IV ONE (06:04)
[2017-03-15 06:21] LABS: Glucose,Whole Blood 125 mg/dL (75-99)
[2017-03-15 07:30] LABS: MCV 88.8 fL (80.0-100.0)
--- NOTE | 2017-03-15 07:49 | XR ---
EXAMINATION TYPE: XR chest 1V portable DATE OF EXAM: 03/15/2017 COMPARISON: Prior chest x-ray 03/14/2017 HISTORY: Extubated, abnormal chest x-ray TECHNIQUE: Single frontal view of the chest is obtained. FINDINGS: There is been interval removal of endotracheal and NG tube. Right jugular central venous c atheter is stable, patient remains rotated. Heart size is stable. Patchy basilar density again noted. No evident pneumothorax or pleural effusion. IMPRESSION: Interval extubation
[2017-03-15] MEDS: LORATADINE 10 MG TAB PO SCH ×2 (08:30→08:46)
[2017-03-15] MEDS: CHLORHEXIDINE GLUCONATE 15 ML CUP MUCOUS MEM SCH (08:37)
[2017-03-15] MEDS: MEMANTINE 10 MG TAB PO SCH ×3 (08:37→21:53)
[2017-03-15] MEDS: FAMOTIDINE 20 MG/2 ML VIAL IV SCH (08:38)
[2017-03-15] MEDS: SERTRALINE 50 MG TAB PO SCH ×2 (08:38→08:46)
[2017-03-15] MEDS: MONTELUKAST 10 MG TAB PO SCH ×2 (08:38→08:46)
[2017-03-15] MEDS: DONEPEZIL 10 MG TAB PO SCH (08:45)
--- NOTE | 2017-03-15 10:03 | P.PN ---
Subjective Progress Note Date: 03/15/17 66-year-old female seen and examined at bedside in the ICU patient is pleasantly confused oriented to self only patient was extubated yesterday currently is on room air keeping a sat 94%. Temp this morning 99.9 the white count is down this morning 8.2 potassium 3.1. Wound cultures are currently pending showing gram-negative bacilli being followed by infectious disease currently on Zosyn postop day 13 of March exploratory laparotomy, lysis of adhesion, small bowel resection, sigmoid colectomy with end colostomy. Objective - Vital Signs Vital signs: Vital Signs Temp 99.9 F H 03/15/17 08:00 Pulse 87 03/15/17 09:00 Resp 23 03/15/17 09:00 BP 158/71 03/15/17 09:00 Pulse Ox 94 L 03/15/17 09:00 Intake & Output 03/14/17 03/15/17 03/15/17 18:59 06:59 18:59 Intake Total 9103.192 8669 250 Output Total 735 467 70 Balance 678.811 733 180 Weight 66.9 kg Intake: IV 1400 1200 250 Dextrose 5% in Water 1, 950 1200 100 000 ml @ 100 mls/hr IV . [id number] GABRIEL with Sod Bicarb Syr 8.4% (1 Meq/ml ) 150 ml Rx#:[id number] Piperacillin-Tazobactam 3 50 .375 gm In Dextrose/Water 1 50ml.bag @ 12.5 mls/hr IVPB Q8HR [facility] Rx#: [id number] Potassium Phosphate 10 100 mmol In Sodium Chloride 0 .9% 100 ml @ 50 mls/hr IV ONCE ONE Rx#:[id number] Sodium Chloride 0.9% 1, 450 000 ml @ 150 mls/hr IV . Q6H40M [facility] Rx#:[id number] Intake, IV Titration 13.811 Amount Propofol 1,000 mg In 100 13.811 ml @ Titrate IV .Q0M [facility] Rx#:[id number] Oral 0 0 Output: Drainage 240 40 Right Lower Abdomen 240 40 Urine 495 427 70 Other: Voiding Method Indwelling Catheter Indwelling Catheter Indwelling Catheter - Exam Physical exam 66-year-old female sitting up in bed in the ICU oriented to self and hand mittens on. Appears in no acute distress Lungs diminished at the bases otherwise adequate air movement on room air sats 94% no wheezing noted no cough noted Heart S1-S2 audible and regular denying chest pain Abdomen soft ostomy to the left lower quadrant stoma pink no stool noted in ostomy day WEN drain right lower quadrant serous drainage noted surgical dressing dry not distended indwelling Casarez catheter in place hypoactive bowel tones noted currently nothing by mouth Extremities Venodyne's on to the bilateral lower extremities - Labs CBC & Chem 7: 03/15/17 04:47 03/15/17 04:42 Labs: Abnormal Lab Results - Last 24 Hours (Table) 03/14/17 03/14/17 03/14/17 Range/Units 09:35 12:06 13:42 RBC (3.80-5.40) m/uL Hgb (11.4-16.0) gm/dL Hct (34.0-46.0) % Plt Count (150-450) k/uL Lymphocytes # (1.0-4.8) k/uL ABG pH 7.31 L (7.35-7.45) ABG pCO2 31 L (35-45) mmHg ABG pO2 144 H (83-108) mmHg ABG HCO3 15 L (21-25) mmol/L ABG Total CO2 16 L (19-24) mmol/L ABG O2 Saturation 99.0 H (94-97) % Potassium (3.5-5.1) mmol/L Chloride (98-107) mmol/L BUN (7-17) mg/dL Creatinine (0.52-1.04) mg/dL Glucose (74-99) mg/dL POC Glucose (mg/dL) 138 H 147 H (75-99) mg/dL Calcium (8.4-10.2) mg/dL Phosphorus (2.5-4.5) mg/dL 03/14/17 03/14/17 03/15/17 Range/Units 18:41 20:03 00:13 RBC (3.80-5.40) m/uL Hgb (11.4-16.0) gm/dL Hct (34.0-46.0) % Plt Count (150-450) k/uL Lymphocytes # (1.0-4.8) k/uL ABG pH (7.35-7.45) ABG pCO2 (35-45) mmHg ABG pO2 (83-108) mmHg ABG HCO3 (21-25) mmol/L ABG Total CO2 (19-24) mmol/L ABG O2 Saturation (94-97) % Potassium (3.5-5.1) mmol/L Chloride (98-107) mmol/L BUN (7-17) mg/dL Creatinine (0.52-1.04) mg/dL Glucose (74-99) mg/dL POC Glucose (mg/dL) 120 H 134 H 129 H (75-99) mg/dL Calcium (8.4-10.2) mg/dL Phosphorus (2.5-4.5) mg/dL 03/15/17 03/15/17 03/15/17 Range/Units 04:42 04:47 06:18 RBC 3.19 L (3.80-5.40) m/uL Hgb 9.1 L D (11.4-16.0) gm/dL Hct 28.4 L (34.0-46.0) % Plt Count 147 L (150-450) k/uL Lymphocytes # 0.4 L (1.0-4.8) k/uL ABG pH (7.35-7.45) ABG pCO2 (35-45) mmHg ABG pO2 (83-108) mmHg ABG HCO3 (21-25) mmol/L ABG Total CO2 (19-24) mmol/L ABG O2 Saturation (94-97) % Potassium 3.1 L (3.5-5.1) mmol/L Chloride 110 H (98-107) mmol/L BUN 18 H (7-17) mg/dL Creatinine 1.90 H (0.52-1.04) mg/dL Glucose 113 H (74-99) mg/dL POC Glucose (mg/dL) 125 H (75-99) mg/dL Calcium 7.5 L (8.4-10.2) mg/dL Phosphorus 2.3 L (2.5-4.5) mg/dL Microbiology - Last 24 Hours (Table) 03/12/17 20:10 Blood Culture - Preliminary Blood No Growth after 48 hours 03/13/17 15:45 Gram Stain - Preliminary Groin Wound Culture - Preliminary Gram Neg Bacilli 03/12/17 10:51 Blood Culture - Preliminary Blood No Growth after 48 hours Assessment and Plan Plan: Impression Present on admission abdominal pain left lower quadrant onset 2 days prior suspect due to 6 cm peridiverticular abscess anterior to the mid sigmoid colon History of a recent 11/30/2016 exploratory laparotomy lysis of adhesions 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 History of Parkinson's Dementia no behavior disturbance Coronary artery disease with prior myocardial infarction Seizure disorder last seizure in the 70s Chronic anemia Peripheral vascular disease Status post March 13 exploratory laparotomy, lysis of adhesions, small bowel resection, sigmoid colectomy with end colostomy Postop hypokalemia Plan Potassium to be replaced per protocol Continue postop surgical care IV Zosyn as ordered per infectious diseases recommendations ICU care per the stopperer assembler DVT and GI prophylaxis Home meds as appropriate Follow up on urine and blood & wound cultures Pain control PT OT eval Repeat labs in the morning The above impression and plan of care have been discussed and directed by signing physician. Danuta Ocampo nurse practitioner acting as scribe for signing physician.
[2017-03-15] MEDS: HYDROmorphone 0.5 MG/0.5 ML SYRINGE IVP PRN ×2 (10:12→21:55)
--- NOTE | 2017-03-15 10:56 | P.PN ---
Subjective Progress Note Date: 03/15/17 66-year-old female patient, presented to the hospital because of abdominal pain. Pain was mainly in the left lower quadrant. Patient has significant tenderness involving the left lower quadrant. There is significant tenderness to the left lower quadrant white count was elevated tachycardic heart rate in the 90s and he was sat been started on IV Zosyn. CT of the abdomen and pelvis showed inflammatory changes the pelvis and complicated sigmoid diverticulitis and 6 cm pericolonic abscess. Based on that the patient was taken to the OR and she underwent exp. laparotomy, Lysis of adhesions, Small bowel resection, Sigmoid colectomy with end colostomy and a Partial greater omentectomy. Pos op the patient was kept intubated and the patient was brought in the the ICU for further care and weaning. The patient is on a mechanical ventilator on AC of 14 , TV 450, Fio2 1005 and a PEEP of 5. The patient's ABG showed a component of metablic acidosis and the patient's serum bicarb was down to 15 he had overnight the patient was kept sedated on Diprivan. The patient was given a total of 4 L of IV fluids. 2 L of normal saline was given to her and another liter at midnight. Her current urine output is somewhat between 20-25 mL an hour. Renal function is stable. She is afebrile. She is hemodynamically stable. She is on no pressors. The serum bicarb is still low at 13 and the patient has a component of non-anion gap metabolic acidosis. Most recent blood gases from this morning showed a pH of 7.31 with a pCO2 of 32 and pO2 of 242 and this was done and FiO2 of 50% FiO2 has been down to 30 down to 35%. The patient has an NG tube in place. Output is been minimal. The abdominal wound is showing some erythema in the inferior portion of the vertical midabdominal wound and this may be late to some cellulitis. No active drainage from the wounds. No active drainage from the WEN drain. It drained only 110 mL of serosanguineous material overnight. The patient is on Zosyn and Flagyl. Note the patient was in the hospital in December 2016 and the patient at that time presented with a similar abdominal pain and the CAT scan of the abdomen showed left upper quadrant Jujenal process. Based on all this the patient was taken to the operating room and exploration was done with small bowel was run fluid Treitz and in the left upper quadrant there was a small bowel inflammatory mass. There appeared to be extension of the mass into the mesentery which yet again urned out to be an inflamatory process. The mass appeared to be inflamed. At this point a limited small bowel resection was performed by dividing the small bowel proximally distally to the mass using the linear cutter stapler. A [id number] functional end-to-end staple anastomosis created . Postop, the patient was brought into the intensive care unit intubated on a mechanical ventilator. I successfully extubated the patient and following further care she was discharged home. On 03/15/2017 the patient is being seen in follow-up. I was able to extubate patient yesterday without any major difficulties. She is confused for now. She is able to talk. She is hemodynamically stable on no pressors. She is on IV Zosyn and the wound cultures currently are still pending however there showing gram-negative bacilli. She is afebrile for now. She is producing adequate amount of urine output. She is on IV fluids and she is receiving 100 mL of D5/3 A of bicarb and her serum bicarb level is improved and it's up to 23. She has however developing acute kidney injury. Creatinine is up to 1.9. She is producing approximately 34 40 mL hour of urine output. Colostomy site is functional. She failed a swallow evaluation yesterday. She pulled out her NG tube. No abdominal distention. Surgical wound site is dry clean and intact. Objective - Vital Signs Vital signs: Vital Signs Temp 99.9 F H 03/15/17 08:00 Pulse 87 03/15/17 10:00 Resp 23 03/15/17 10:00 BP 151/68 03/15/17 10:00 Pulse Ox 93 L 03/15/17 10:00 Intake & Output 03/14/17 03/15/17 03/15/17 18:59 06:59 18:59 Intake Total 6822.501 5436 250 Output Total 735 467 115 Balance 678.811 733 135 Weight 66.9 kg Intake: IV 1400 1200 250 Dextrose 5% in Water 1, 950 1200 100 000 ml @ 100 mls/hr IV . [id number] GABRIEL with Sod Bicarb Syr 8.4% (1 Meq/ml ) 150 ml Rx#:[id number] Piperacillin-Tazobactam 3 50 .375 gm In Dextrose/Water 1 50ml.bag @ 12.5 mls/hr IVPB Q8HR [facility] Rx#: [id number] Potassium Phosphate 10 100 mmol In Sodium Chloride 0 .9% 100 ml @ 50 mls/hr IV ONCE ONE Rx#:[id number] Sodium Chloride 0.9% 1, 450 000 ml @ 150 mls/hr IV . Q6H40M [facility] Rx#:[id number] Intake, IV Titration 13.811 Amount Propofol 1,000 mg In 100 13.811 ml @ Titrate IV .Q0M [facility] Rx#:[id number] Oral 0 0 Output: Drainage 240 40 Right Lower Abdomen 240 40 Urine 495 427 115 Other: Voiding Method Indwelling Catheter Indwelling Catheter Indwelling Catheter - Exam Patient is sedated, comfortable nonacute distress.Head exam was generally normal. There was no scleral icterus or corneal arcus. Mucous membranes were moist. The patient also has a right IJ triple-lumen catheter in place.Neck was supple and without jugular venous distension, thyromegaly, or carotid bruits. Carotids were easily palpable bilaterally. There was no adenopathy.Lungs were clear to auscultation and percussion, and with normal diaphragmatic excursion. No wheezes or rales were noted. Cardiac exam revealed the PMI to be normally situated and sized. The rhythm was regular and no extrasystoles were noted during several minutes of auscultation. The first and second heart sounds were normal and physiologic splitting of the second heart sound was noted. There were no murmurs, rubs, clicks, or gallops. Abdomen is soft there is a mid incisional wound which is not draining at this point. The area of erythema over the lower abdominal wall is completely subsided.. Examination of the extremities revealed easily palpable radial, femoral and pedal pulses. There was no cyanosis, clubbing or edema. Neurologically the patient is sedated yet she withdraws to painful stimuli. Skeletal examination shows no deformities or arthritis. - Labs CBC & Chem 7: 03/15/17 04:47 03/15/17 04:42 Labs: Abnormal Lab Results - Last 24 Hours (Table) 03/14/17 03/14/17 03/14/17 Range/Units 12:06 13:42 18:41 RBC (3.80-5.40) m/uL Hgb (11.4-16.0) gm/dL Hct (34.0-46.0) % Plt Count (150-450) k/uL Lymphocytes # (1.0-4.8) k/uL Potassium (3.5-5.1) mmol/L Chloride (98-107) mmol/L BUN (7-17) mg/dL Creatinine (0.52-1.04) mg/dL Glucose (74-99) mg/dL POC Glucose (mg/dL) 138 H 147 H 120 H (75-99) mg/dL Calcium (8.4-10.2) mg/dL Phosphorus (2.5-4.5) mg/dL 03/14/17 03/15/17 03/15/17 Range/Units 20:03 00:13 04:42 RBC (3.80-5.40) m/uL Hgb (11.4-16.0) gm/dL Hct (34.0-46.0) % Plt Count (150-450) k/uL Lymphocytes # (1.0-4.8) k/uL Potassium 3.1 L (3.5-5.1) mmol/L Chloride 110 H (98-107) mmol/L BUN 18 H (7-17) mg/dL Creatinine 1.90 H (0.52-1.04) mg/dL Glucose 113 H (74-99) mg/dL POC Glucose (mg/dL) 134 H 129 H (75-99) mg/dL Calcium 7.5 L (8.4-10.2) mg/dL Phosphorus 2.3 L (2.5-4.5) mg/dL 03/15/17 03/15/17 Range/Units 04:47 06:18 RBC 3.19 L (3.80-5.40) m/uL Hgb 9.1 L D (11.4-16.0) gm/dL Hct 28.4 L (34.0-46.0) % Plt Count 147 L (150-450) k/uL Lymphocytes # 0.4 L (1.0-4.8) k/uL Potassium (3.5-5.1) mmol/L Chloride (98-107) mmol/L BUN (7-17) mg/dL Creatinine (0.52-1.04) mg/dL Glucose (74-99) mg/dL POC Glucose (mg/dL) 125 H (75-99) mg/dL Calcium (8.4-10.2) mg/dL Phosphorus (2.5-4.5) mg/dL Microbiology - Last 24 Hours (Table) 03/12/17 20:10 Blood Culture - Preliminary Blood No Growth after 48 hours 03/13/17 15:45 Gram Stain - Preliminary Groin Wound Culture - Preliminary Gram Neg Bacilli 03/12/17 10:51 Blood Culture - Preliminary Blood No Growth after 48 hours Assessment and Plan Plan: Assessment 1 exploratory laparotomy, sigmoid resection, and colostomy, lysis of adhesions and partial omentectomy. The patient is postop day #2. The patient was found to have a complicated diverticulitis of the sigmoid with intra-abdominal abscess formation. Currently on a combination of Zosyn and the wound cultures are showing gram-negative bacilli.. Hemodynamically stable. The patient is on no pressors. The patient is producing adequate amount of urine output The colostomy site is functional and viable. No abdominal distention. NG tube has been removed. Not ready to swallow yet. 2 small bowel resection in December 2016 which turned out to be an inflammatory mass rather than a true malignancy. The patient recovered from that without any major difficulties. 3 postoperative ventilator dependence. The patient's metabolic acidosis was corrected and the patient was extubated yesterday without any major difficulties. 4 dementia, 5 diabetes mellitus, maintained on oral hypoglycemics and the patient will be placed on this a scale coverage for now 6 hyperlipidemia 7 coronary artery disease with previous myocardial infarction 8 seizure disorder many years back and the patient has not been on seizure medication. Her last seizure was back in the 70s., 9 sleep apnea, obstructive sleep apnea with suboptimal compliance to CPAP therapy 10 recent fall with a nasal fracture 11 chronic anemia 12 peripheral vascular disease 13 diverticulosis, with previous history of bowel resection, colostomy and subsequent reversal. 14 cardiac murmur 15 remote history of DVT 16 bipolar disorder 17 chronic bronchial asthma 18 non-anion gap metabolic acidosis, recovered with bicarb infusion. Plan With IV fluids to D5 half-normal saline at the rate of 75 mL an hour. Do another swallow evaluation in a.m. Monitor the output from the wounds. Monitor electrolytes. Continue IV Zosyn. DVT and GI prophylaxis. We'll continue to follow.
--- NOTE | 2017-03-15 11:18 | P.PN ---
Subjective Progress Note Date: 03/15/17 03/12/2017 This is a 66 year old female who presented to the ER with a chief complaint of abdominal pain. The patient was brought in by her sister, Reny, who is also her legal guardian. Her abdominal pain has been present for approximately 2 days. In the emergency room, a CT scan of the abdomen and pelvis was completed which revealed inflammatory changes in the pelvis suggestive of a 6 cm peridiverticular abscess anterior to the mid sigmoid colon. A chest x-ray was completed which was unremarkable. The patient has underwent prior abdominal surgeries. 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 The patient was admitted to the hospital under the care of Dr. Leal. A consult was placed to Dr. Golden, the patient's PCP, for medical management. Consults were also placed to interventional radiology for possible drainage of the abscess. The patient was seen and examined this morning at the bedside with Dr. Golden. There is no family present at this time. The patient is very lethargic this morning. She would not open her eyes. She does have a history of dementia. However she would answer questions and nod appropriately. She denies chest pain or shortness of breath. Bowel sounds are present. She did have severe pain when her right lower quadrant was palpated, however she denied pain upon palpation of left quadrant. However, it is noted that the patient had left quadrant pain when palpated per surgery's note. Her white count was elevated on admission at 17.0. It is 13.9 this morning. She is receiving zosyn. 03/13/2017 Patient seen and examined this morning. She appears more awake this morning. Able to open eyes. Continues to complain of right side abdominal pain but she states it is improved since yesterday. She is NPO for surgery today with Dr. Leal. Procedure planned is drainage of pelvic abscess, sigmoid colectomy, and colostomy. She was hypoglycemic last night with a BS of 57 and 61. This morning she is 101. Dr. Golden started the patient on D5.45 @ 125cc/hr. Her temperatute this morning is 99.9F. Her Tmax over the last [address] Dey, infectious disease, is also on consult. The patient remains on Vanco , Zosyn, and Flagyl. 03/14/2017 Patient seen and examined this morning by Dr. Golden. Patient underwent an exploratory laparotomy, lysis of adhesions, small bowel resection, and sigmoid colectomy with end colostomy. The patient remained on the ventilator after surgery and was transferred to the ICU. The patients urine output was low and she was bolused with normal saline. Her vital signs remained stable. her white count this morning is 12.6 and hemoglobin is 10.6. WEN drain is present. Her surgical incision site does have some erythema present and resembles a cellulitis. She remains on zosyn and flagyl. The patient underwent a CPAP trial this morning and was successfully extubated. 03/15/2017 Patient was seen and examined this morning by Dr. Golden. Patient is POD #2 exploratory laparotomy, lysis of adhesions, small bowel resection, sigmoid colectomy with end colostomy. The patient was extubated yesterday. She is on room air and maintaining oxygen saturations greater than 92%. She is confused. She pulled out her NG tube yesterday. Her blood culture from 03/11/2017 was positive for staphylococcus epidermidis, which is likely contamination. Her repeat cultures are negative at the 48 hour luis alberto. Her wound culture is still pending but preliminary results show gram negative bacilli. She remains on zosyn per infectious disease. WEN drain remains intact with serous drainage. Colostomy stoma is pink and moist. No stool noted in the colostomy at this time. Her potassium is low at 3.1 this morning and is being replaced per protocol. Her creatinine this morning is 1.9. Yesterday it was 1.2. It was 0.9 on admission. She is receiving D5 with 3 amps of bicarb at 100cc/hr. Objective - Vital Signs Vital signs: Vital Signs Temp 99.9 F H 03/15/17 08:00 Pulse 87 03/15/17 10:00 Resp 23 03/15/17 10:00 BP 151/68 03/15/17 10:00 Pulse Ox 93 L 03/15/17 10:00 Intake & Output 03/14/17 03/15/17 03/15/17 18:59 06:59 18:59 Intake Total 4641.702 3346 250 Output Total 735 467 115 Balance 678.811 733 135 Weight 66.9 kg Intake: IV 1400 1200 250 Dextrose 5% in Water 1, 950 1200 100 000 ml @ 100 mls/hr IV . [id number] GABRIEL with Sod Bicarb Syr 8.4% (1 Meq/ml ) 150 ml Rx#:[id number] Piperacillin-Tazobactam 3 50 .375 gm In Dextrose/Water 1 50ml.bag @ 12.5 mls/hr IVPB Q8HR [facility] Rx#: [id number] Potassium Phosphate 10 100 mmol In Sodium Chloride 0 .9% 100 ml @ 50 mls/hr IV ONCE ONE Rx#:[id number] Sodium Chloride 0.9% 1, 450 000 ml @ 150 mls/hr IV . Q6H40M [facility] Rx#:[id number] Intake, IV Titration 13.811 Amount Propofol 1,000 mg In 100 13.811 ml @ Titrate IV .Q0M [facility] Rx#:[id number] Oral 0 0 Output: Drainage 240 40 Right Lower Abdomen 240 40 Urine 495 427 115 Other: Voiding Method Indwelling Catheter Indwelling Catheter Indwelling Catheter - Exam GENERAL: awake and alert. pleasantly confused. RESPIRATORY: Lungs clear bilaterally. No use of accessory muscles. Patient maintaining oxygen saturation greater than 92%. CARDIOVASCULAR: S1 and S2 noted. No murmurs auscultated. No JVD noted. EXTREMITIES: No edema noted. Palpable pedal pulses +2. ABDOMEN: No distention noted. Abdomen soft and round. WEN drain in place. Dressing to abdominal surgical site noted. - Labs CBC & Chem 7: 03/15/17 04:47 03/15/17 04:42 Labs: Abnormal Lab Results - Last 24 Hours (Table) 03/14/17 03/14/17 03/14/17 Range/Units 12:06 13:42 18:41 RBC (3.80-5.40) m/uL Hgb (11.4-16.0) gm/dL Hct (34.0-46.0) % Plt Count (150-450) k/uL Lymphocytes # (1.0-4.8) k/uL Potassium (3.5-5.1) mmol/L Chloride (98-107) mmol/L BUN (7-17) mg/dL Creatinine (0.52-1.04) mg/dL Glucose (74-99) mg/dL POC Glucose (mg/dL) 138 H 147 H 120 H (75-99) mg/dL Calcium (8.4-10.2) mg/dL Phosphorus (2.5-4.5) mg/dL 03/14/17 03/15/17 03/15/17 Range/Units 20:03 00:13 04:42 RBC (3.80-5.40) m/uL Hgb (11.4-16.0) gm/dL Hct (34.0-46.0) % Plt Count (150-450) k/uL Lymphocytes # (1.0-4.8) k/uL Potassium 3.1 L (3.5-5.1) mmol/L Chloride 110 H (98-107) mmol/L BUN 18 H (7-17) mg/dL Creatinine 1.90 H (0.52-1.04) mg/dL Glucose 113 H (74-99) mg/dL POC Glucose (mg/dL) 134 H 129 H (75-99) mg/dL Calcium 7.5 L (8.4-10.2) mg/dL Phosphorus 2.3 L (2.5-4.5) mg/dL 03/15/17 03/15/17 Range/Units 04:47 06:18 RBC 3.19 L (3.80-5.40) m/uL Hgb 9.1 L D (11.4-16.0) gm/dL Hct 28.4 L (34.0-46.0) % Plt Count 147 L (150-450) k/uL Lymphocytes # 0.4 L (1.0-4.8) k/uL Potassium (3.5-5.1) mmol/L Chloride (98-107) mmol/L BUN (7-17) mg/dL Creatinine (0.52-1.04) mg/dL Glucose (74-99) mg/dL POC Glucose (mg/dL) 125 H (75-99) mg/dL Calcium (8.4-10.2) mg/dL Phosphorus (2.5-4.5) mg/dL Microbiology - Last 24 Hours (Table) 03/12/17 20:10 Blood Culture - Preliminary Blood No Growth after 48 hours 03/13/17 15:45 Gram Stain - Preliminary Groin Wound Culture - Preliminary Gram Neg Bacilli 03/12/17 10:51 Blood Culture - Preliminary Blood No Growth after 48 hours Assessment and Plan Plan: ASSESSMENT: -Abdominal pain, present on admission, likely secondary to 6 cm peridiverticular abscess anterior to the mid sigmoid colon -s/p exploratory laparotomy, lysis of adhesions, and bowel resection with colostomy on March 13, 2017, POD #2. -History of recent exploratory laparotomy with lysis of adhesions and 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 -History of dementia -History of coronary artery disease with myocardial infarction -Diabetes mellitus, type II -Hypoglycemia, secondary to NPO status, improving -Hypokalemia -Acute kidney injury, creatinine 0.9 on admission, 1.9 this morning PLAN: -Continue care per Dr Leal and early childhood specialist -Infectious disease on consult -Continue Zosyn per infectious disease -Await final results of wound cultures -Monitor labs, monitor kidney function -Consider nephrology consultation if kidney functions worsens -Pain Control -GI prophylaxis: Pepcid 20mg IV daily -DVT prophylaxis: Heparin 5000 units subcu every 8 hours -Monitor vital signs and address as appropriate -Monitor capillary blood glucose -Humalog sliding scale coverage -Replace potassium per protocol The above impression and plan of care have been discussed and directed by signing physician. Torie Willett, nurse practitioner, acting as scribe for signing physician.
[2017-03-15 11:59] LABS: Glucose,Whole Blood 97 mg/dL (75-99)
[2017-03-15] MEDS: DEXTROSE 5% IV SCH ×2 (14:46)
[2017-03-15] MEDS: SOD BICARB IV SCH ×2 (14:46)
[2017-03-15] MEDS: WATER IV SCH ×2 (14:46)
[2017-03-15] MEDS: DEXTROSE 5%-0.45% NACL 1,000 ML IV SCH ×2 (14:52→23:51)
[2017-03-15 15:43] VITALS: BMI 23.8
[2017-03-15 17:55] LABS: Glucose,Whole Blood 114 mg/dL (75-99)
[2017-03-15] MEDS: PANTOPRAZOLE 40 MG TABLET PO SCH (21:53)
[2017-03-15] MEDS: risperiDONE 1 MG TAB PO SCH (21:53)
[2017-03-15] MEDS: MIRTAZAPINE 15 MG TAB PO SCH (21:54)
--- NOTE | 2017-03-15 22:50 | PN ---
PROGRESS NOTE REASON FOR FOLLOWUP: Abdominal abscess from ruptured diverticulitis. INTERVAL HISTORY: The patient is afebrile. She has been extubated, breathing comfortably. Denies significant chest pain or cough. Her abdominal pain is currently controlled with pain medication. PHYSICAL EXAMINATION: Blood pressure 175/86 with a pulse of 77, temperature 97.6. She is 92% on room air. General description is an elderly female lying in bed in no distress. RESPIRATORY SYSTEM: Unlabored breathing. Clear to auscultation anteriorly. HEART: S1, S2. Regular rate and rhythm. ABDOMEN: Soft. Minimal tenderness. No guarding. No rigidity. LABS: Hemoglobin 9.1, white count 8.2. Wound culture is showing a Gram-negative. DIAGNOSTIC IMPRESSION AND PLAN: Patient with a Gram-negative abdominal abscess, status post diverting colostomy. We are currently waiting for the culture to finalize. Keep the patient on Zosyn, adjusting it further based on clinical response. MMODL / IJN: [id number] /
[2017-03-16 07:13] LABS: Glucose,Whole Blood 126 mg/dL (75-99)
[2017-03-16] MEDS: INSULIN LISPRO (humaLOG) 300 UNIT/3 ML VIAL SQ SCH ×4 (07:33→22:06)
[2017-03-16 08:26] LABS: Basophils % (A) 0 %; CH 28.2; CHCM 31.8; Eosinophils # (A) 0.3 k/uL (0-0.7); Eosinophils % (A) 4 %; HCT 29.3 % (34.0-46.0); HDW 2.38; Luc % (Auto) 2; Lymphocytes # (A) 0.5 k/uL (1.0-4.8); Lymphocytes % (A) 8 %; MCH 27.4 pg (25.0-35.0); MCHC 30.7 g/dL (31.0-37.0); MCV 89.1 fL (80.0-100.0); Mean Platelet Volume 7.8; Monocytes # (A) 0.5 k/uL (0-1.0); Monocytes % (A) 7 %; Neutrophils # (A) 5.4 k/uL (1.3-7.7); Neutrophils % (A) 80 %; RBC 3.29 m/uL (3.80-5.40); RDW 13.5 % (11.5-15.5); WBC 6.8 k/uL (3.8-10.6); WBC (Perox) 6.97
[2017-03-16] MEDS: PIPERACILLIN-TAZOBACTAM 3.375 GM in DEXTROSE/WATER 1 50ML.BAG IVPB SCH (08:48)
[2017-03-16] MEDS: HEPARIN SODIUM,PORCINE 5,000 UNIT/ML 1 ML VIAL SQ SCH ×2 (08:48→15:07)
[2017-03-16] MEDS: MONTELUKAST 10 MG TAB PO SCH (08:49)
[2017-03-16] MEDS: DONEPEZIL 10 MG TAB PO SCH (08:49)
[2017-03-16] MEDS: MEMANTINE 10 MG TAB PO SCH ×2 (08:49→22:03)
[2017-03-16] MEDS: FAMOTIDINE 20 MG/2 ML VIAL IV SCH (08:49)
[2017-03-16] MEDS: LORATADINE 10 MG TAB PO SCH (08:49)
[2017-03-16] MEDS: SERTRALINE 50 MG TAB PO SCH (08:50)
[2017-03-16] MEDS: DEXTROSE 5%-0.45% NACL 1,000 ML IV SCH ×2 (08:50→22:27)
[2017-03-16 09:18] LABS: Calcium 9.1 mg/dL (8.4-10.2); Total Bilirubin 0.4 mg/dL (0.2-1.3); Total Protein 4.3 g/dL (6.3-8.2)
--- NOTE | 2017-03-16 11:16 | P.PN ---
Progress Note - Text Progress Note Date: 03/16/17 The patient is resting comfortably in bed. She appears slightly sleepy. On exam her vital signs are stable. Her abdomen soft. There is some limited output through her colostomy. Her incisions clean dry tach. Status post sigmoid colectomy with small bowel resection for pelvic abscess. Patient has not had significant output through her colostomy. She will have her diet advanced once her bowel function improved.
--- NOTE | 2017-03-16 12:09 | P.PN ---
Subjective Progress Note Date: 03/16/17 Principal diagnosis: 66-year-old female patient, presented to the hospital because of abdominal pain. Pain was mainly in the left lower quadrant. Patient has significant tenderness involving the left lower quadrant. There is significant tenderness to the left lower quadrant white count was elevated tachycardic heart rate in the 90s and he was sat been started on IV Zosyn. CT of the abdomen and pelvis showed inflammatory changes the pelvis and complicated sigmoid diverticulitis and 6 cm pericolonic abscess. Based on that the patient was taken to the OR and she underwent exp. laparotomy, Lysis of adhesions, Small bowel resection, Sigmoid colectomy with end colostomy and a Partial greater omentectomy. Pos op the patient was kept intubated and the patient was brought in the the ICU for further care and weaning. The patient is on a mechanical ventilator on AC of 14 , TV 450, Fio2 1005 and a PEEP of 5. The patient's ABG showed a component of metablic acidosis and the patient's serum bicarb was down to 15 he had overnight the patient was kept sedated on Diprivan. The patient was given a total of 4 L of IV fluids. 2 L of normal saline was given to her and another liter at midnight. Her current urine output is somewhat between 20-25 mL an hour. Renal function is stable. She is afebrile. She is hemodynamically stable. She is on no pressors. The serum bicarb is still low at 13 and the patient has a component of non-anion gap metabolic acidosis. Most recent blood gases from this morning showed a pH of 7.31 with a pCO2 of 32 and pO2 of 242 and this was done and FiO2 of 50% FiO2 has been down to 30 down to 35%. The patient has an NG tube in place. Output is been minimal. The abdominal wound is showing some erythema in the inferior portion of the vertical midabdominal wound and this may be late to some cellulitis. No active drainage from the wounds. No active drainage from the WEN drain. It drained only 110 mL of serosanguineous material overnight. The patient is on Zosyn and Flagyl. Note the patient was in the hospital in December 2016 and the patient at that time presented with a similar abdominal pain and the CAT scan of the abdomen showed left upper quadrant Jujenal process. Based on all this the patient was taken to the operating room and exploration was done with small bowel was run fluid Treitz and in the left upper quadrant there was a small bowel inflammatory mass. There appeared to be extension of the mass into the mesentery which yet again urned out to be an inflamatory process. The mass appeared to be inflamed. At this point a limited small bowel resection was performed by dividing the small bowel proximally distally to the mass using the linear cutter stapler. A [id number] functional end-to-end staple anastomosis created . Postop, the patient was brought into the intensive care unit intubated on a mechanical ventilator. I successfully extubated the patient and following further care she was discharged home. On 03/15/2017 the patient is being seen in follow-up. I was able to extubate patient yesterday without any major difficulties. She is confused for now. She is able to talk. She is hemodynamically stable on no pressors. She is on IV Zosyn and the wound cultures currently are still pending however there showing gram-negative bacilli. She is afebrile for now. She is producing adequate amount of urine output. She is on IV fluids and she is receiving 100 mL of D5/3 A of bicarb and her serum bicarb level is improved and it's up to 23. She has however developing acute kidney injury. Creatinine is up to 1.9. She is producing approximately 34 40 mL hour of urine output. Colostomy site is functional. She failed a swallow evaluation yesterday. She pulled out her NG tube. No abdominal distention. Surgical wound site is dry clean and intact. The patient is seen again today 03/16/2017 in follow-up on the surgical floor. She is currently awake and alert in no acute distress. She denies any worsening shortness of breath, cough or congestion. Her surgical pain is well controlled. Her dressing is dry and intact. WEN drain remains in place. Ostomy is functioning. Wound culture of the groin was positive for E. coli. She is currently on Zosyn. No leukocytosis. Hemoglobin 9.0. Objective - Vital Signs Vital signs: Vital Signs Temp 98.3 F 03/16/17 08:42 Pulse 62 03/16/17 08:42 Resp 18 03/16/17 08:42 BP 113/67 03/16/17 08:42 Pulse Ox 99 03/16/17 08:42 Intake & Output 03/15/17 03/16/17 03/16/17 18:59 06:59 18:59 Intake Total 1050 485.0 Output Total 420 101 200 Balance 630 384.0 -200 Weight 66.9 kg 66.9 kg Intake: IV 1050 425.0 Dextrose 5% in Water 1, 100 000 ml @ 100 mls/hr IV . [id number] [facility] with Sod Bicarb Syr 8.4% (1 Meq/ml ) 150 ml Rx#:[id number] Piperacillin-Tazobactam 3 50 25.0 .375 gm In Dextrose/Water 1 50ml.bag @ 12.5 mls/hr IVPB Q8HR [facility] Rx#: [id number] Potassium Phosphate 10 100 mmol In Sodium Chloride 0 .9% 100 ml @ 50 mls/hr IV ONCE ONE Rx#:[id number] d5 0.45 800 400 Oral 60 Output: Urine 420 101 Stool 200 Other: Voiding Method Indwelling Catheter Indwelling Catheter Indwelling Catheter # Voids 4 - Exam Patient is comfortable no acute distress.Head exam was generally normal. There was no scleral icterus or corneal arcus. Mucous membranes were moist. The patient also has a right IJ triple-lumen catheter in place.Neck was supple and without jugular venous distension, thyromegaly, or carotid bruits. Carotids were easily palpable bilaterally. There was no adenopathy.Lungs were clear to auscultation and percussion, and with normal diaphragmatic excursion. No wheezes or rales were noted. Cardiac exam revealed the PMI to be normally situated and sized. The rhythm was regular and no extrasystoles were noted during several minutes of auscultation. The first and second heart sounds were normal and physiologic splitting of the second heart sound was noted. There were no murmurs, rubs, clicks, or gallops. Abdomen is soft there is a mid incisional wound which is not draining at this point. Dressing dry and intact. WEN drain remains in place. Ostomy functioning. The area of erythema over the lower abdominal wall is completely subsided.. Examination of the extremities revealed easily palpable radial, femoral and pedal pulses. There was no cyanosis, clubbing or edema. Neurologically the patient is sedated yet she withdraws to painful stimuli. Skeletal examination shows no deformities or arthritis. - Labs CBC & Chem 7: 03/16/17 06:53 03/16/17 10:17 Labs: Abnormal Lab Results - Last 24 Hours (Table) 03/15/17 03/15/17 03/16/17 Range/Units 15:35 17:53 06:52 RBC (3.80-5.40) m/uL Hgb (11.4-16.0) gm/dL Hct (34.0-46.0) % MCHC (31.0-37.0) g/dL Lymphocytes # (1.0-4.8) k/uL Potassium 3.2 L (3.5-5.1) mmol/L Chloride (98-107) mmol/L Carbon Dioxide (22-30) mmol/L Creatinine (0.52-1.04) mg/dL Glucose (74-99) mg/dL POC Glucose (mg/dL) 114 H 126 H (75-99) mg/dL Total Protein (6.3-8.2) g/dL Albumin (3.5-5.0) g/dL 03/16/17 03/16/17 03/16/17 Range/Units 06:53 06:53 10:17 RBC 3.29 L (3.80-5.40) m/uL Hgb 9.0 L (11.4-16.0) gm/dL Hct 29.3 L (34.0-46.0) % MCHC 30.7 L (31.0-37.0) g/dL Lymphocytes # 0.5 L (1.0-4.8) k/uL Potassium 3.0 L* (3.5-5.1) mmol/L Chloride 111 H (98-107) mmol/L Carbon Dioxide 21 L (22-30) mmol/L Creatinine 2.03 H (0.52-1.04) mg/dL Glucose 117 H (74-99) mg/dL POC Glucose (mg/dL) (75-99) mg/dL Total Protein 4.3 L (6.3-8.2) g/dL Albumin 2.1 L (3.5-5.0) g/dL Microbiology - Last 24 Hours (Table) 03/12/17 20:10 Blood Culture - Preliminary Blood No Growth after 72 hours 03/13/17 15:45 Gram Stain - Final Groin Wound Culture - Final Escherichia coli 03/12/17 10:51 Blood Culture - Preliminary Blood No Growth after 72 hours Assessment and Plan Plan: Assessment 1 exploratory laparotomy, sigmoid resection, and colostomy, lysis of adhesions and partial omentectomy. The patient is postop day #3. The patient was found to have a complicated diverticulitis of the sigmoid with intra-abdominal abscess formation. Currently on a combination of Zosyn and the wound cultures are showing E. coli.. Hemodynamically stable. The patient is on no pressors. The patient is producing adequate amount of urine output The colostomy site is functional and viable. WEN drain remains in place. No abdominal distention. NG tube has been removed. 2 small bowel resection in December 2016 which turned out to be an inflammatory mass rather than a true malignancy. The patient recovered from that without any major difficulties. 3 postoperative ventilator dependence. The patient's metabolic acidosis was corrected and the patient was extubated without any major difficulties. 4 dementia, 5 diabetes mellitus, maintained on oral hypoglycemics and the patient will be placed on this a scale coverage for now 6 hyperlipidemia 7 coronary artery disease with previous myocardial infarction 8 seizure disorder many years back and the patient has not been on seizure medication. Her last seizure was back in the 70s., 9 sleep apnea, obstructive sleep apnea with suboptimal compliance to CPAP therapy 10 recent fall with a nasal fracture 11 chronic anemia 12 peripheral vascular disease 13 diverticulosis, with previous history of bowel resection, colostomy and subsequent reversal. 14 cardiac murmur 15 remote history of DVT 16 bipolar disorder 17 chronic bronchial asthma 18 non-anion gap metabolic acidosis, recovered with bicarb infusion. Plan: The patient was seen and evaluated by Dr. Pinto. She is stable from the pulmonary and critical care standpoint. Yesterday's chest x-ray showed some patchy basilar densities. She needs increased encouragement regarding the use of the incentive spirometer and cough and deep breathing exercises. Will continue with bronchodilators. She remains on a clear liquid diet. We'll increase her activity as tolerated. We'll continue to follow. I, the cosigning physician, have performed a history and physical examination on the patient. She continues with faint crackles in the posterior bases. No leukocytosis. Increase use the incentive spirometer. I have discussed the assessment and plan of care with my nurse practitioner Guerda Jackson. I agree with the above dictated note.
[2017-03-16 12:14] LABS: Glucose,Whole Blood 113 mg/dL (75-99)
[2017-03-16] MEDS: POTASSIUM CHLORIDE 10 MEQ, LIDOCAINE 2% INJ 10 MG in SODIUM CHLORIDE 0.9% 100 ML IV SCH ×2 (12:48→15:07)
[2017-03-16] MEDS: AMPICILLIN-SULBACTAM 3 GM in SODIUM CHLORIDE 0.9% 100 ML IVPB SCH (15:07)
[2017-03-16] MEDS: ALBUTEROL NEBULIZED 2.5 MG/3 ML INHALATION SCH ×2 (16:12→19:06)
[2017-03-16 16:53] LABS: Glucose,Whole Blood 116 mg/dL (75-99)
--- NOTE | 2017-03-16 17:12 | PN ---
PROGRESS NOTE DATE OF SERVICE: 03/16/2017 I am covering for Dr. Golden. This 66-year-old woman with a past medical history of multiple medical problems, underwent sigmoid colectomy and small bowel resection for pelvic abscess. The patient is closely monitored at this time. The patient had colostomy. Multiple consultants are following the patient closely. PAST MEDICAL HISTORY: Reviewed. REVIEW OF SYSTEMS: CARDIOVASCULAR: No angina. RESPIRATORY: As mentioned. GI: As mentioned. : No dysuria. NERVOUS SYSTEM: As mentioned earlier. CURRENT MEDICATIONS: Reviewed and include: 1. Kempner 5 mg q.6 p.r.n. 2. Ventolin. 3. Unasyn 3 g IV q.6h. 4. Aricept 10 mg. 5. Pepcid 20 mg daily. 6. Heparin 5000 daily. 7. Dilaudid. 8. Claritin 10 daily. 9. Remeron. 10.Singular. 11.Protonix. 12.Zoloft. PHYSICAL EXAM: Patient is alert, oriented x3. Pulse 62, blood pressure 130/69, respiration 18, temp 98.2, pulse ox 98% on 2 L. HEENT: Conjunctivae normal. Oral mucosa moist. NECK: No jugular venous distention. No lymph node enlargement. CARDIOVASCULAR: S1, S2. RESPIRATORY: Breath sounds diminished in the bases. A few scattered rhonchi. No crackles. ABDOMEN: Soft, status post surgery. LEGS: No edema. NERVOUS SYSTEM: No focal deficits. LABS: WBC 9, potassium 3, albumin is 2.1. The chest x-ray done yesterday which was reviewed by me personally showed interval extubation. Patchy basilar density. ASSESSMENT: 1. Abdominal pain with peridiverticular abscess, status post exploratory laparotomy, lysis of adhesions and bowel resection and colostomy. 2. Dementia. 3. History of coronary artery disease, myocardial infarction. 4. Diabetes mellitus type 2. 5. Postoperative ventilator dependence as expected. 6. Hyperlipidemia. 7. History of coronary artery disease. 8. History of seizure disorder. 9. Sleep apnea. 10.Chronic anemia. 11.Hypokalemia. RECOMMENDATIONS AND DISCUSSION: I recommend to continue the current medications, continue symptomatic treatment. Will closely monitor. Incentive spirometry satisfactory. Will repeat potassium and monitor lytes closely. Otherwise prognosis guarded because of multiple complex medical issues. Further recommendations to follow. See orders for details. MMODL / IJN: [id number] /
--- NOTE | 2017-03-16 19:42 | XR ---
EXAMINATION TYPE: XR chest 1V portable DATE OF EXAM: 03/16/2017 Comparison: 03/15/2017 Clinical History: 66-year-old female central line placement Findings: The heart is normal size. Aorta within normal limits. Diffuse interstitial prominence. There may be d eveloping right infrahilar and right midlung airspace opacity. A significant pleural effusion on the frontal view. Patient's right sided CVC catheter has been pulled up in the interval and is now locate d in the mid SVC level. It loops with a hairpin turn in the internal jugular vein. Impression: 1. Catheter pulled back in the interval now with tip at the mid SVC level. The catheter loops with 2 hairpin turns likely extending into the lower internal jugular vein if the venous access was through the external jugular. 2. Interstitial densities are now becoming more confluent. Developing infiltrates or pulmonary edema in the right mid and lower lung not excluded. Follow-up recommended.
[2017-03-16] MEDS ORDERED: FUROSEMIDE 10 MG/ML 2 ML VIAL IV ONE (20:06)
[2017-03-16 20:17] LABS: Glucose,Whole Blood 133 mg/dL (75-99)
[2017-03-16] MEDS: MIRTAZAPINE 15 MG TAB PO SCH (22:03)
[2017-03-16] MEDS: risperiDONE 1 MG TAB PO SCH (22:04)
[2017-03-16] MEDS: PANTOPRAZOLE 40 MG TABLET PO SCH (22:04)
[2017-03-17] MEDS: AMPICILLIN-SULBACTAM 3 GM in SODIUM CHLORIDE 0.9% 100 ML IVPB SCH ×3 (00:40→17:11)
[2017-03-17] MEDS: HEPARIN SODIUM,PORCINE 5,000 UNIT/ML 1 ML VIAL SQ SCH ×3 (00:40→17:12)
[2017-03-17] MEDS: DEXTROSE 5%-0.45% NACL 1,000 ML IV SCH ×2 (04:44→09:47)
--- NOTE | 2017-03-17 05:30 | PN ---
PROGRESS NOTE DATE OF SERVICE: 03/16/2017. REASON FOR FOLLOWUP: Abdominal abscess. INTERVAL HISTORY: The patient is afebrile. She is breathing comfortably. Denies significant chest pain. No cough. Abdominal pain is currently controlled with pain medication. No nausea or vomiting. Did have some stool in the colostomy bag. EXAMINATION: Blood pressure is 155/79 with a pulse of 80, temperature of 98.3. She is 99% on 2 L nasal cannula. GENERAL DESCRIPTION: Is an elderly female lying in bed in no distress. RESPIRATORY SYSTEM: Unlabored breathing. Clear to auscultation anteriorly. HEART: S1, S2. Regular rate and rhythm. ABDOMEN: Soft, no tenderness. LABS: Hemoglobin 9.1, white count 6.8 with a BUN of 17, creatinine 2.03. Abdominal culture with an E coli sensitive pathogen. DIAGNOSTIC IMPRESSION AND PLAN: Patient with abdominal abscess from a ruptured diverticulitis status post diverting colostomy. The abdominal culture with E coli sensitive pathogen. currently on Unasyn 3 g q.8h. The patient did have jump in her creatinine. This will be watched closely. We will discontinue the tramadol. May benefit from a gentle IV fluids and possible nephrology evaluation. MMODL / IJN: [id number] / MTDArianna
[2017-03-17 07:25] LABS: Glucose,Whole Blood 143 mg/dL (75-99)
[2017-03-17 07:47] LABS: Calcium 7.8 mg/dL (8.4-10.2); Potassium 3.1 mmol/L (3.5-5.1); Total Bilirubin 0.2 mg/dL (0.2-1.3); Total Protein 4.4 g/dL (6.3-8.2)
[2017-03-17] MEDS: ALBUTEROL NEBULIZED 2.5 MG/3 ML INHALATION SCH ×4 (08:27→21:47)
[2017-03-17 08:31] LABS: Basophils % (A) 0 %; CH 27.9; CHCM 31.7; Eosinophils # (A) 0.2 k/uL (0-0.7); Eosinophils % (A) 4 %; HCT 28.2 % (34.0-46.0); HDW 2.39; Luc # (Auto) 0.12; Luc % (Auto) 2; Lymphocytes # (A) 0.6 k/uL (1.0-4.8); Lymphocytes % (A) 10 %; MCH 28.2 pg (25.0-35.0); MCHC 31.9 g/dL (31.0-37.0); MCV 88.4 fL (80.0-100.0); Mean Platelet Volume 7.5; Monocytes # (A) 0.5 k/uL (0-1.0); Monocytes % (A) 8 %; Neutrophils # (A) 4.6 k/uL (1.3-7.7); Neutrophils % (A) 76 %; RBC 3.19 m/uL (3.80-5.40); RDW 13.4 % (11.5-15.5); WBC (Perox) 6.02
--- NOTE | 2017-03-17 09:21 | XR ---
EXAMINATION TYPE: XR chest 1V portable DATE OF EXAM: 03/17/2017 HISTORY: pulm edema . REFERENCE: Previous study dated 03/16/2017. FINDINGS: The study is moderately rotated. There is a right internal jugular catheter with its tip in the superior vena cava. The heart is mildly enlarged. On today's examination the lungs appear clear. Pleural spaces appear cl ear. IMPRESSION: 1. ROTATED STUDY. 2. MILD CARDIOMEGALY.
--- NOTE | 2017-03-17 11:09 | P.PN ---
Progress Note - Text Progress Note Date: 03/17/17 The patient is resting in her bed comfortably. She is more awake today. She denies a significant abdominal pain. She's had some stool and flatus in her colostomy bag. The patient was given some Lasix last night. She had a good diuresis overnight with approximately 1600 mL's of urine. On exam her vital signs are stable. Her abdomen soft. Colostomy is functioning. Status post Kera procedure and small bowel resection for pelvic abscess. The patient still has poor oral intake. She'll be encouraged to eat more. We' ll have nephrology see her for her increasing creatinine.
[2017-03-17] MEDS: INSULIN LISPRO (humaLOG) 300 UNIT/3 ML VIAL SQ SCH ×4 (11:17→21:13)
[2017-03-17] MEDS: FAMOTIDINE 20 MG/2 ML VIAL IV SCH (11:17)
[2017-03-17] MEDS: MEMANTINE 10 MG TAB PO SCH ×2 (11:18→21:14)
[2017-03-17] MEDS: SERTRALINE 50 MG TAB PO SCH (11:18)
[2017-03-17] MEDS: DONEPEZIL 10 MG TAB PO SCH (11:18)
[2017-03-17] MEDS: LORATADINE 10 MG TAB PO SCH (11:18)
[2017-03-17] MEDS: MONTELUKAST 10 MG TAB PO SCH (11:19)
[2017-03-17 12:00] LABS: Glucose,Whole Blood 131 mg/dL (75-99)
[2017-03-17] MEDS ORDERED: POTASSIUM CHLORIDE 10 MEQ, LIDOCAINE 2% INJ 10 MG in SODIUM CHLORIDE 0.9% 100 ML IV SCH ×2 (13:00→18:00)
[2017-03-17] MEDS: HYDROcodone/APAP 5-325MG 1 EACH TAB PO PRN ×2 (13:20→20:03)
--- NOTE | 2017-03-17 16:10 | PN ---
PROGRESS NOTE I am covering for Dr. Golden. DATE OF SERVICE: 03/17/2017 INTERVAL HISTORY: This 66-year-old woman who was admitted after abdominal pain and peridiverticular abscess, exploratory laparotomy. The patient also suspected to have some fluid overload. IV fluids have been cut down at this time. The patient is taking p.o. food. No chest pain. No palpitations. PHYSICAL EXAM: Alert, oriented times three. Pulse 88, blood pressure 131/77, respiration 16, temperature 98.4, pulse ox 97% on 2 L. HEENT are conjunctivae normal. Oral mucosa moist. Neck is no jugular venous distention. No carotid bruit. No lymph node enlargement. Cardiovascular: S1, S2 muffled. Respiratory: Breath sounds diminished at the bases. A few scattered rhonchi. ABDOMEN: Soft, status post surgery. Legs are no edema. No swelling. Central nervous system: No focal deficits. LABORATORY DATA: Sodium 142, potassium 3.1. ASSESSMENT: 1. Abdominal pain with diverticular abscess, status post exploratory laparotomy, lysis of adhesions and bowel resection and colostomy. 2. Dementia. 3. Hypokalemia. 4. History of coronary artery disease, myocardial infarction. 5. History of diabetes mellitus Type 2. 6. Postoperative ventilator dependence as expected. 7. Hyperlipidemia. 8. History of coronary artery disease. 9. History of seizure disorder. 10.Sleep apnea. 11.Chronic anemia. 12.Hypokalemia. RECOMMENDATIONS AND DISCUSSION: Recommend to continue current medications, management and symptomatic treatment. Supplement potassium. Otherwise incentive spirometry. Cut down the fluids. Chest x- ray reviewed. Closely follow with surgery. Dr. Jerry Golden will follow. MMODL / IJN: [id number] /
--- NOTE | 2017-03-17 16:48 | P.PN ---
Subjective Progress Note Date: 03/17/17 66-year-old female patient, presented to the hospital because of abdominal pain. Pain was mainly in the left lower quadrant. Patient has significant tenderness involving the left lower quadrant. There is significant tenderness to the left lower quadrant white count was elevated tachycardic heart rate in the 90s and he was sat been started on IV Zosyn. CT of the abdomen and pelvis showed inflammatory changes the pelvis and complicated sigmoid diverticulitis and 6 cm pericolonic abscess. Based on that the patient was taken to the OR and she underwent exp. laparotomy, Lysis of adhesions, Small bowel resection, Sigmoid colectomy with end colostomy and a Partial greater omentectomy. Pos op the patient was kept intubated and the patient was brought in the the ICU for further care and weaning. The patient is on a mechanical ventilator on AC of 14 , TV 450, Fio2 1005 and a PEEP of 5. The patient's ABG showed a component of metablic acidosis and the patient's serum bicarb was down to 15 he had overnight the patient was kept sedated on Diprivan. The patient was given a total of 4 L of IV fluids. 2 L of normal saline was given to her and another liter at midnight. Her current urine output is somewhat between 20-25 mL an hour. Renal function is stable. She is afebrile. She is hemodynamically stable. She is on no pressors. The serum bicarb is still low at 13 and the patient has a component of non-anion gap metabolic acidosis. Most recent blood gases from this morning showed a pH of 7.31 with a pCO2 of 32 and pO2 of 242 and this was done and FiO2 of 50% FiO2 has been down to 30 down to 35%. The patient has an NG tube in place. Output is been minimal. The abdominal wound is showing some erythema in the inferior portion of the vertical midabdominal wound and this may be late to some cellulitis. No active drainage from the wounds. No active drainage from the WEN drain. It drained only 110 mL of serosanguineous material overnight. The patient is on Zosyn and Flagyl. Note the patient was in the hospital in December 2016 and the patient at that time presented with a similar abdominal pain and the CAT scan of the abdomen showed left upper quadrant Jujenal process. Based on all this the patient was taken to the operating room and exploration was done with small bowel was run fluid Treitz and in the left upper quadrant there was a small bowel inflammatory mass. There appeared to be extension of the mass into the mesentery which yet again urned out to be an inflamatory process. The mass appeared to be inflamed. At this point a limited small bowel resection was performed by dividing the small bowel proximally distally to the mass using the linear cutter stapler. A [id number] functional end-to-end staple anastomosis created . Postop, the patient was brought into the intensive care unit intubated on a mechanical ventilator. I successfully extubated the patient and following further care she was discharged home. On 03/15/2017 the patient is being seen in follow-up. I was able to extubate patient yesterday without any major difficulties. She is confused for now. She is able to talk. She is hemodynamically stable on no pressors. She is on IV Zosyn and the wound cultures currently are still pending however there showing gram-negative bacilli. She is afebrile for now. She is producing adequate amount of urine output. She is on IV fluids and she is receiving 100 mL of D5/3 A of bicarb and her serum bicarb level is improved and it's up to 23. She has however developing acute kidney injury. Creatinine is up to 1.9. She is producing approximately 34 40 mL hour of urine output. Colostomy site is functional. She failed a swallow evaluation yesterday. She pulled out her NG tube. No abdominal distention. Surgical wound site is dry clean and intact. The patient is seen again today 03/16/2017 in follow-up on the surgical floor. She is currently awake and alert in no acute distress. She denies any worsening shortness of breath, cough or congestion. Her surgical pain is well controlled. Her dressing is dry and intact. WEN drain remains in place. Ostomy is functioning. Wound culture of the groin was positive for E. coli. She is currently on Zosyn. No leukocytosis. Hemoglobin 9.0. On 03/17/2017 the patient was seen in the surgical floor. She was able to sit up on a chair. Her colostomy site is functional. WEN drains in place. She has no specific complaints. She is awake and alert. Pulse ox is 94% liters of oxygen nasal cannula. Afebrile. Hemodynamically stable. No other significant events over the past 24 hours. General surgeries on the case. The patient was given a dose of Lasix to improve her urine output. She is taking oral intake mainly clear liquids. Objective - Vital Signs Vital signs: Vital Signs Temp 98.3 F 03/17/17 15:42 Pulse 84 03/17/17 16:40 Resp 16 03/17/17 15:42 BP 133/80 03/17/17 15:42 Pulse Ox 94 L 03/17/17 15:42 Intake & Output 03/16/17 03/17/17 03/17/17 18:59 06:59 18:59 Intake Total 900 Output Total 1750 2000 520 Balance -1750 -1100 -520 Weight 66.9 kg 66.9 kg Intake: IV 900 d5 0.45 900 Output: Drainage 100 50 20 Right Lower Abdomen 100 50 20 Urine 750 1600 500 Stool 900 350 Other: Voiding Method Indwelling Catheter Indwelling Catheter Indwelling Catheter # Voids 4 - Exam Patient is comfortable no acute distress.Head exam was generally normal. There was no scleral icterus or corneal arcus. Mucous membranes were moist. The patient also has a right IJ triple-lumen catheter in place.Neck was supple and without jugular venous distension, thyromegaly, or carotid bruits. Carotids were easily palpable bilaterally. There was no adenopathy.Lungs were clear to auscultation and percussion, and with normal diaphragmatic excursion. No wheezes or rales were noted. Cardiac exam revealed the PMI to be normally situated and sized. The rhythm was regular and no extrasystoles were noted during several minutes of auscultation. The first and second heart sounds were normal and physiologic splitting of the second heart sound was noted. There were no murmurs, rubs, clicks, or gallops. Abdomen is soft there is a mid incisional wound which is not draining at this point. Dressing dry and intact. WEN drain remains in place. Ostomy functioning. The area of erythema over the lower abdominal wall is completely subsided.. Examination of the extremities revealed easily palpable radial, femoral and pedal pulses. There was no cyanosis, clubbing or edema. Neurologically the patient is sedated yet she withdraws to painful stimuli. Skeletal examination shows no deformities or arthritis. - Labs CBC & Chem 7: 03/17/17 07:10 03/17/17 07:10 Labs: Abnormal Lab Results - Last 24 Hours (Table) 03/16/17 03/16/17 03/16/17 Range/Units 16:43 20:08 20:42 RBC (3.80-5.40) m/uL Hgb (11.4-16.0) gm/dL Hct (34.0-46.0) % Lymphocytes # (1.0-4.8) k/uL Potassium 3.3 L (3.5-5.1) mmol/L Chloride (98-107) mmol/L Creatinine (0.52-1.04) mg/dL Glucose (74-99) mg/dL POC Glucose (mg/dL) 116 H 133 H (75-99) mg/dL Calcium (8.4-10.2) mg/dL AST (14-36) U/L Total Protein (6.3-8.2) g/dL Albumin (3.5-5.0) g/dL 03/17/17 03/17/17 03/17/17 Range/Units 07:10 07:10 07:18 RBC 3.19 L (3.80-5.40) m/uL Hgb 9.0 L (11.4-16.0) gm/dL Hct 28.2 L (34.0-46.0) % Lymphocytes # 0.6 L (1.0-4.8) k/uL Potassium 3.1 L (3.5-5.1) mmol/L Chloride 110 H (98-107) mmol/L Creatinine 1.96 H (0.52-1.04) mg/dL Glucose 129 H (74-99) mg/dL POC Glucose (mg/dL) 143 H (75-99) mg/dL Calcium 7.8 L (8.4-10.2) mg/dL AST 13 L (14-36) U/L Total Protein 4.4 L (6.3-8.2) g/dL Albumin 2.1 L (3.5-5.0) g/dL 03/17/17 Range/Units 11:32 RBC (3.80-5.40) m/uL Hgb (11.4-16.0) gm/dL Hct (34.0-46.0) % Lymphocytes # (1.0-4.8) k/uL Potassium (3.5-5.1) mmol/L Chloride (98-107) mmol/L Creatinine (0.52-1.04) mg/dL Glucose (74-99) mg/dL POC Glucose (mg/dL) 131 H (75-99) mg/dL Calcium (8.4-10.2) mg/dL AST (14-36) U/L Total Protein (6.3-8.2) g/dL Albumin (3.5-5.0) g/dL Microbiology - Last 24 Hours (Table) 03/12/17 10:51 Blood Culture - Preliminary Blood No Growth after 120 hours 03/13/17 15:45 Anaerobic Culture - Final Groin Anaerobic Gm Negative Bacilli 03/12/17 20:10 Blood Culture - Preliminary Blood No Growth after 96 hours Assessment and Plan Plan: Assessment 1 exploratory laparotomy, sigmoid resection, and colostomy, lysis of adhesions and partial omentectomy. The patient is postop day #4. The patient was found to have a complicated diverticulitis of the sigmoid with intra-abdominal abscess formation. Currently on a combination of Zosyn and the wound cultures are showing E. coli.. Hemodynamically stable. The patient is on no pressors. The patient is producing adequate amount of urine output The colostomy site is functional and viable. WEN drain remains in place. No abdominal distention. The patient is on clear liquid diet. She will be gradually advancing her diet as tolerated. 2 small bowel resection in December 2016 which turned out to be an inflammatory mass rather than a true malignancy. The patient recovered from that without any major difficulties. 3 postoperative ventilator dependence. The patient's metabolic acidosis was corrected and the patient was extubated without any major difficulties. 4 dementia, 5 diabetes mellitus, maintained on oral hypoglycemics and the patient will be placed on this a scale coverage for now 6 hyperlipidemia 7 coronary artery disease with previous myocardial infarction 8 seizure disorder many years back and the patient has not been on seizure medication. Her last seizure was back in the 70s., 9 sleep apnea, obstructive sleep apnea with suboptimal compliance to CPAP therapy 10 recent fall with a nasal fracture 11 chronic anemia 12 peripheral vascular disease 13 diverticulosis, with previous history of bowel resection, colostomy and subsequent reversal. 14 cardiac murmur 15 remote history of DVT 16 bipolar disorder 17 chronic bronchial asthma 18 non-anion gap metabolic acidosis, recovered with bicarb infusion. Most recent bicarb level is up to 22 19 acute kidney injury with a creatinine being as high as 1.9. Currently her creatinine is stable at 1.9 and the patient is producing adequate amount of urine output. Rule out postoperative ATN Plan Continue routine postoperative care. Continue IV Unasyn. Monitor renal function. Aspiration precautions. Advance diet as tolerated. She is recovering reasonably well. Keep the patient surgical floor. Monitor the abdominal wound. Monitor colostomy. Make further antibiotic adjustments based on the wound cultures as the patient was found to have gram-negative bacilli and E. coli and Unasyn seems to be adequate for now.
[2017-03-17] MEDS: D5-0.45% NACL WITH KCL 20MEQ/L 1,000 ML IV SCH (17:11)
[2017-03-17 17:17] LABS: Glucose,Whole Blood 143 mg/dL (75-99)
[2017-03-17 17:34] LABS: Magnesium 2.1 mg/dL (1.6-2.3); Potassium 3.5 mmol/L (3.5-5.1)
[2017-03-17 20:55] LABS: Glucose,Whole Blood 105 mg/dL (75-99)
[2017-03-17] MEDS: MIRTAZAPINE 15 MG TAB PO SCH (21:14)
[2017-03-17] MEDS: PANTOPRAZOLE 40 MG TABLET PO SCH (21:14)
[2017-03-17] MEDS: risperiDONE 1 MG TAB PO SCH (21:15)
--- NOTE | 2017-03-17 22:22 | PN ---
PROGRESS NOTE DATE OF SERVICE: 03/17/2017. REASON FOR FOLLOW UP: Abdominal abscess from ruptured diverticulitis. INTERVAL HISTORY: The patient is afebrile. She is breathing comfortably. Denies significant chest pain or shortness of breath or cough. No abdominal pain. No nausea, vomiting. Did have stool in colostomy bag. EXAMINATION: Blood pressure 133/80 with a pulse of 79, temperature of 98.3. She is 94% on room air. General description is an elderly female lying in bed, in no distress. Respiratory system unlabored breathing. Clear to auscultation anteriorly. Heart S1, S2. Regular rate and rhythm. Abdomen soft. No tenderness. LABS: Hemoglobin 9, white count 6.0 with a BUN of 15, creatinine 0.96. DIAGNOSTIC IMPRESSION AND PLAN: Patient with abdominal abscess from a ruptured appendicitis. Culture has been positive for E. coli that is resistant to the quinolones. responded to the Unasyn the patient currently on that will continue in addition to the Flagyl to further evaluate for aerobic gram negative bacilli. Hopefully plan to finish therapy with oral antibiotics. Continue supportive care. MMODL / IJN: [id number] / BREANNA
[2017-03-18] MEDS: HEPARIN SODIUM,PORCINE 5,000 UNIT/ML 1 ML VIAL SQ SCH ×3 (00:36→16:23)
[2017-03-18] MEDS: AMPICILLIN-SULBACTAM 3 GM in SODIUM CHLORIDE 0.9% 100 ML IVPB SCH ×3 (00:36→18:26)
[2017-03-18] MEDS: metroNIDAZOLE 500 MG TAB PO SCH ×4 (00:37→20:58)
[2017-03-18] MEDS: HYDROcodone/APAP 5-325MG 1 EACH TAB PO PRN ×2 (00:47→13:48)
[2017-03-18] MEDS: D5-0.45% NACL WITH KCL 20MEQ/L 1,000 ML IV SCH ×5 (06:21→20:11)
[2017-03-18 06:44] LABS: Glucose,Whole Blood 107 mg/dL (75-99)
[2017-03-18] MEDS: DONEPEZIL 10 MG TAB PO SCH (08:23)
[2017-03-18] MEDS: LORATADINE 10 MG TAB PO SCH (08:23)
[2017-03-18] MEDS: SERTRALINE 50 MG TAB PO SCH (08:23)
[2017-03-18] MEDS: FAMOTIDINE 20 MG/2 ML VIAL IV SCH (08:23)
[2017-03-18] MEDS: MONTELUKAST 10 MG TAB PO SCH (08:24)
[2017-03-18] MEDS: MEMANTINE 10 MG TAB PO SCH (08:24)
[2017-03-18 08:59] LABS: Basophils % (A) 1 %; CH 27.5; CHCM 29.8; Eosinophils # (A) 0.3 k/uL (0-0.7); Eosinophils % (A) 6 %; HCT 29.5 % (34.0-46.0); HDW 2.33; HGB 8.9 gm/dL (11.4-16.0); Hypochromasia Marked; Luc # (Auto) 0.18; Luc % (Auto) 4; Lymphocytes # (A) 0.7 k/uL (1.0-4.8); Lymphocytes % (A) 13 %; MCHC 30.2 g/dL (31.0-37.0); MCV 92.7 fL (80.0-100.0); Mean Platelet Volume 6.9; Monocytes # (A) 0.4 k/uL (0-1.0); Monocytes % (A) 8 %; Neutrophils # (A) 3.6 k/uL (1.3-7.7); Neutrophils % (A) 69 %; RBC 3.18 m/uL (3.80-5.40); RDW 13.3 % (11.5-15.5); WBC 5.2 k/uL (3.8-10.6); WBC (Perox) 5.35
[2017-03-18 09:04] LABS: Calcium 7.8 mg/dL (8.4-10.2); Magnesium 1.9 mg/dL (1.6-2.3); Total Bilirubin 0.4 mg/dL (0.2-1.3); Total Protein 4.6 g/dL (6.3-8.2)
[2017-03-18 09:10] LABS: Potassium 3.4 mmol/L (3.5-5.1)
[2017-03-18] MEDS: ALBUTEROL NEBULIZED 2.5 MG/3 ML INHALATION SCH ×4 (09:23→20:05)
[2017-03-18] MEDS: INSULIN LISPRO (humaLOG) 300 UNIT/3 ML VIAL SQ SCH ×4 (09:38→20:29)
[2017-03-18] MEDS ORDERED: POTASSIUM CHLORIDE ER 20 MEQ TAB.ER PO STA (09:53)
--- NOTE | 2017-03-18 09:54 | P.NPCON ---
History of Present Illness - Reason for Consult acute renal failure - History of Present Illness Reason for consultation: Acute kidney injury History of present illness: Patient is a 66-year-old female seen in renal consultation for acute kidney injury. Her baseline creatinine is 1 and peaked at 2.03-6 admission. It is down to 1.88 today. Patient presented to the hospital with abdominal pain of 2 days' duration. She does have history of multiple abdominal surgeries including colon resection in the past. On March 11 she had a CAT scan of the abdomen and pelvis done with IV contrast which revealed periiverticular abscess. She was subsequently evaluated by general surgery and underwent exploratory laparotomy with lysis of adhesions along with small bowel resection and sigmoid colectomy with end colostomy on March 13. Wound cultures have been positive for E. coli. She is currently maintained on antibiotics per infectious disease recommendations. She has a Casarez catheter in place and is nonoliguric. She is currently maintained on half normal saline running at 75 mL an hour. She is maintained on a clear liquid diet. She states her abdomen is sore. No vomiting or diarrhea. Breathing is comfortable. I don't see any NSAIDs and her home medications. Patient has history of dementia and is not a very reliable historian. Vital signs are stable. General: The patient appeared well nourished and normally developed. HEENT: Head exam is unremarkable. Neck is without jugular venous distension. LUNGS: Lungs are clear to auscultation and percussion. Breath sounds decreased. HEART: Rate and Rhythm are regular. First and second heart sounds normal. No murmurs, rubs or gallops. ABDOMEN: Abdominal exam reveals normal bowel sounds. Generalized tenderness. EXTREMITITES: No clubbing, cyanosis, or edema. Past Medical History Past Medical History: Asthma, Coronary Artery Disease (CAD), Heart Failure, Dementia, Diabetes Mellitus, Deep Vein Thrombosis (DVT), GERD/Reflux, Hyperlipidemia, Myocardial Infarction (MS), Osteoarthritis (OA), Pneumonia, Renal Disease, Seizure Disorder, Sleep Apnea/CPAP/BIPAP, Vascular Disorder Additional Past Medical History / Comment(s): Bronchial asthma, dementia, diabetes mellitus, hyperlipidemia, coronary artery disease with previous myocardial infarction, seizure disorder many years back and the patient has not been on seizure medication. 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 Last Myocardial Infarction Date:: 1991 History of Any Multi-Drug Resistant Organisms: None Reported Past Surgical History: Adenoidectomy, Appendectomy, Bowel Resection, Cholecystectomy, Hernia Repair, Hysterectomy, Joint Replacement, Orthopedic Surgery, Tonsillectomy Additional Past Surgical History / Comment(s): exploratory laparotomy and a small bowel resection (2017), partial colon resection with colostomy then reversal, SILVERIO KNEE ARTHROSCOPY, Right KNEE REPLACEMENT, EGDs and colonoscopies, lipomas off back, cyst off spine, eye duct surgery Past Anesthesia/Blood Transfusion Reactions: Previous Problems w/ Anesthesia, Motion Sickness Additional Past Anesthesia/Blood Transfusion Reaction / Comment(s): DIFFICULTY WAKING UP. CLAUSTERPHOBIC Past Psychological History: Anxiety, Bipolar Additional Psychological History / Comment(s): DYSLEXIA but is able to read and write with some difficulty. Pt resides with her sisters, Reny who is also her legal guardian and other sister Michelle. They are her caretakers. Dru uses a walker to ambulate. She does not drive, Michelle takes her to appts. pt also has dementia and is deaf Smoking Status: Never smoker Past Alcohol Use History: None Reported Additional Past Alcohol Use History / Comment(s): STARTED SMOKNG AT AGE 16, SMOKED 1 CIG PER DAY QUIT 1982 Past Drug Use History: None Reported - Past Family History Father Family Medical History: Cancer Additional Family Medical History / Comment(s): Father had lung cancer. Mother Family Medical History: Congestive Heart Failure (CHF), Dementia, Myocardial Infarction (MS) Medications and Allergies Home Medications Medication Instructions Recorded Confirmed Type Albuterol Sulfate [Proair Hfa] 2 puff INHALATION RT-QID PRN 06/24/14 03/11/17 History Donepezil [Aricept] 10 mg PO DAILY 02/07/15 03/11/17 History Loratadine 10 mg PO QAM 06/28/16 03/11/17 History Montelukast Sodium [Singulair] 10 mg PO DAILY 06/28/16 03/11/17 History Omeprazole [PriLOSEC] 20 mg PO HS 06/28/16 03/11/17 History Memantine HCl [Namenda Xr] 28 mg PO DAILY 07/15/16 03/11/17 History risperiDONE [RisperDAL] 1 mg PO HS 08/16/16 03/11/17 History Famotidine [Pepcid] 20 mg PO DAILY 09/03/16 03/11/17 History glipiZIDE [Glucotrol] 5 mg PO DAILY 09/03/16 03/11/17 History Sertraline [Zoloft] 50 mg PO QAM 11/22/16 03/11/17 History traMADol HCL [Ultram] 50 mg PO BID PRN 11/22/16 03/11/17 History Mirtazapine 7.5 mg PO HS 11/29/16 03/11/17 History HYDROcodone/APAP 5-325MG [[place] 1 tab PO Q4HR PRN #40 tab 12/05/16 03/11/17 Rx 5-325] Allergies Allergy/AdvReac Type Severity Reaction Status Date / Time codeine Allergy Rash/Hives Verified 03/13/17 11:52 lorazepam [From Ativan] Allergy Rash/Hives Verified 03/13/17 11:52 oxaprozin [From Daypro] Allergy Rash/Hives Verified 03/13/17 11:52 Sulfa (Sulfonamide Allergy Rash/Hives Verified 03/13/17 11:52 Antibiotics) baclofen AdvReac Unknown Psychotic Verified 03/13/17 11:52 Episode cyclobenzaprine HCl AdvReac Confusion Verified 03/13/17 11:52 [From Flexeril] Physical Exam Vitals: Vital Signs Temp Pulse Pulse Pulse Pulse Resp BP 03/18/17 09:26 78 16 03/18/17 07:29 97 F L 81 16 162/80 03/18/17 03:05 98.0 F 65 16 134/73 03/17/17 23:45 98.7 F 86 15 146/79 03/17/17 16:40 84 03/17/17 16:00 79 76 16 03/17/17 15:42 98.3 F 79 16 133/80 03/17/17 12:20 88 03/17/17 12:10 80 Pulse Ox 03/18/17 09:26 03/18/17 07:29 98 03/18/17 03:05 99 03/17/17 23:45 98 03/17/17 16:40 03/17/17 16:00 03/17/17 15:42 94 L 03/17/17 12:20 03/17/17 12:10 Intake and Output 03/17/17 03/18/17 03/18/17 22:59 06:59 14:59 Output Total 920 800 Balance -920 -800 Output: Drainage 20 50 Right Lower Abdomen 20 50 Urine 700 550 Stool 200 200 Other: Voiding Method Indwelling Catheter Indwelling Catheter Results - Lab Results Most recent lab results ABG pH 7.31 (7.35-7.45) L 03/14/17 09:35 ABG pCO2 31 mmHg (35-45) L 03/14/17 09:35 ABG pO2 144 mmHg (83-108) H 03/14/17 09:35 ABG HCO3 15 mmol/L (21-25) L 03/14/17 09:35 ABG O2 Saturation 99.0 % (94-97) H 03/14/17 09:35 Calcium 7.8 mg/dL (8.4-10.2) L 03/18/17 08:02 Phosphorus 2.3 mg/dL (2.5-4.5) L 03/15/17 04:42 Magnesium 1.9 mg/dL (1.6-2.3) 03/18/17 08:02 03/18/17 07:58 03/18/17 08:02 Assessment and Plan Plan: Assessment: #1. Nonoliguric acute kidney injury secondary to ischemic ATN secondary to sepsis. Baseline creatinine is 1 peaked at 2.03 this admission. It is down to 1.88 today. Urinalysis is quite benign. She also received IV contrast dye on March 11. No evidence of hydronephrosis on CAT scan. #2.. Diverticular abscess status post exploratory laparotomy, lysis of adhesions, small bowel resection, and sigmoid colectomy with end colostomy. #3. Hypokalemia secondary to poor oral intake. Magnesium replete. #4. Metabolic acidosis secondary to acute kidney injury and IV fluids. Plan: I will increase rate of half normal saline with potassium to 100 mL an hour. Maintain Casarez catheter for now. Replace potassium. 40 mEq today. Avoid nephrotoxic agents and hypotensive episodes. Antibiotics per infectious disease recommendations. Repeat electrolytes in the morning. Thank you for the consultation. I will continue to follow the patient with you during her hospital stay.
--- NOTE | 2017-03-18 10:59 | P.PN ---
Subjective Progress Note Date: 03/18/17 66-year-old female seen and examined sitting up in a chair. Patient is oriented to self and place. it audit manager pursuing the discharge plan physical and occupational therapy recommend patient would benefit from subacute rehaba dditionally patient's being seen by nephrology service for acute kidney injury recommendations reviewed postop day 11 march exploratory laparotomy, lysis of adhesion, small bowel resection, sigmoid colectomy with end colostomy. Objective - Vital Signs Vital signs: Vital Signs Temp 97 F L 03/18/17 07:29 Pulse 78 03/18/17 09:26 Resp 16 03/18/17 09:26 BP 162/80 03/18/17 07:29 Pulse Ox 98 03/18/17 07:29 Intake & Output 03/17/17 03/18/17 03/18/17 18:59 06:59 18:59 Intake Total 200 Output Total 920 800 Balance -920 -600 Weight 66.9 kg 66.9 kg Intake: Oral 200 Output: Drainage 20 50 Right Lower Abdomen 20 50 Urine 700 550 Stool 200 200 Other: Voiding Method Indwelling Catheter Indwelling Catheter Indwelling Catheter - Exam Physical exam 66-year-old female sitting up in a chair oriented to self and place. Appears in no acute distress Lungs diminished at the bases otherwise adequate air movement on room air sats 98% no wheezing noted no cough noted Heart S1-S2 audible and regular denying chest pain Abdomen soft ostomy to the left lower quadrant stoma pink no a moderate amount of liquid brown stool noted in ostomy bag WEN drain right lower quadrant serous drainage noted surgical dressing dry not distended indwelling Casarez catheter in place bowel tones noted Extremities Venodyne's on to the bilateral lower extremities - Labs CBC & Chem 7: 03/18/17 07:58 03/18/17 08:02 Labs: Abnormal Lab Results - Last 24 Hours (Table) 03/17/17 03/17/17 03/17/17 Range/Units 11:32 17:13 20:51 RBC (3.80-5.40) m/uL Hgb (11.4-16.0) gm/dL Hct (34.0-46.0) % MCHC (31.0-37.0) g/dL Lymphocytes # (1.0-4.8) k/uL Potassium (3.5-5.1) mmol/L Chloride (98-107) mmol/L Carbon Dioxide (22-30) mmol/L Creatinine (0.52-1.04) mg/dL Glucose (74-99) mg/dL POC Glucose (mg/dL) 131 H 143 H 105 H (75-99) mg/dL Calcium (8.4-10.2) mg/dL Total Protein (6.3-8.2) g/dL Albumin (3.5-5.0) g/dL 03/18/17 03/18/17 03/18/17 Range/Units 06:42 07:58 08:02 RBC 3.18 L (3.80-5.40) m/uL Hgb 8.9 L (11.4-16.0) gm/dL Hct 29.5 L (34.0-46.0) % MCHC 30.2 L (31.0-37.0) g/dL Lymphocytes # 0.7 L (1.0-4.8) k/uL Potassium 3.4 L (3.5-5.1) mmol/L Chloride 111 H (98-107) mmol/L Carbon Dioxide 21 L (22-30) mmol/L Creatinine 1.88 H (0.52-1.04) mg/dL Glucose 115 H (74-99) mg/dL POC Glucose (mg/dL) 107 H (75-99) mg/dL Calcium 7.8 L (8.4-10.2) mg/dL Total Protein 4.6 L (6.3-8.2) g/dL Albumin 2.1 L (3.5-5.0) g/dL Microbiology - Last 24 Hours (Table) 03/12/17 20:10 Blood Culture - Preliminary Blood No Growth after 120 hours 03/12/17 10:51 Blood Culture - Preliminary Blood No Growth after 120 hours Assessment and Plan Plan: Impression Present on admission abdominal pain left lower quadrant onset 2 days prior suspect due to 6 cm peridiverticular abscess anterior to the mid sigmoid colon History of a recent 11/30/2016 exploratory laparotomy lysis of adhesions 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 History of Parkinson's Dementia no behavior disturbance Coronary artery disease with prior myocardial infarction Seizure disorder last seizure in the 70s Chronic anemia Peripheral vascular disease Status post March 13 exploratory laparotomy, lysis of adhesions, small bowel resection, sigmoid colectomy with end colostomy Postop hypokalemia metabolic acidosis secondary to acute kidney injury nonoliguric acute kidney injury secondary to ischemic ATN secondary to sepsis Plan Potassium to be replaced per protocol Continue postop surgical care per infectious diseasesIV antibiotics recommendations DVT and GI prophylaxis Home meds as appropriate Follow up on urine and blood & wound cultures Pain control PT OT eval Repeat labs in the morning advance diet nephrology is recommending continuing the indwelling Casarez catheter for another 24 hours The above impression and plan of care have been discussed and directed by signing physician. Danuta Ocampo nurse practitioner acting as scribe for signing physician.
--- NOTE | 2017-03-18 10:59 | PN ---
PROGRESS NOTE DATE OF SERVICE: 03/18/2017. REASON FOR FOLLOW UP: Abscess from ruptured diverticulitis. INTERVAL HISTORY: The patient is afebrile. She is breathing comfortably. She denies any chest pain or shortness of breath, cough, and no abdominal pain. EXAMINATION: Blood pressure 150/80 with a pulse of 81, temperature 97. She is 98% on 2 L nasal cannula. General description is an elderly female lying in bed in no distress. Respiratory system unlabored breathing. Clear to auscultation anteriorly. Heart S1, S2. Regular rate and rhythm. ABDOMEN: Soft. No tenderness. LABS: Hemoglobin 8.9, white count 5.2 with a BUN of 13, creatinine 1.88. DIAGNOSTIC IMPRESSION AND PLAN: Patient with abdominal abscess from ruptured diverticulitis, status post diverting colostomy. The patient received about a week of IV antibiotic therapy. On discharge will recommend Ceftin and Flagyl combination for another 10 days with close outpatient followup. MMODL / IJN: [id number] /
[2017-03-18 11:52] LABS: Glucose,Whole Blood 128 mg/dL (75-99)
--- NOTE | 2017-03-18 13:07 | P.PN ---
Subjective Progress Note Date: 03/18/17 Principal diagnosis: Complicated diverticulitis of the sigmoid with abscess. 66-year-old female patient, presented to the hospital because of abdominal pain. Pain was mainly in the left lower quadrant. Patient has significant tenderness involving the left lower quadrant. There is significant tenderness to the left lower quadrant white count was elevated tachycardic heart rate in the 90s and he was sat been started on IV Zosyn. CT of the abdomen and pelvis showed inflammatory changes the pelvis and complicated sigmoid diverticulitis and 6 cm pericolonic abscess. Based on that the patient was taken to the OR and she underwent exp. laparotomy, Lysis of adhesions, Small bowel resection, Sigmoid colectomy with end colostomy and a Partial greater omentectomy. Pos op the patient was kept intubated and the patient was brought in the the ICU for further care and weaning. The patient is on a mechanical ventilator on AC of 14 , TV 450, Fio2 1005 and a PEEP of 5. The patient's ABG showed a component of metablic acidosis and the patient's serum bicarb was down to 15 he had overnight the patient was kept sedated on Diprivan. The patient was given a total of 4 L of IV fluids. 2 L of normal saline was given to her and another liter at midnight. Her current urine output is somewhat between 20-25 mL an hour. Renal function is stable. She is afebrile. She is hemodynamically stable. She is on no pressors. The serum bicarb is still low at 13 and the patient has a component of non-anion gap metabolic acidosis. Most recent blood gases from this morning showed a pH of 7.31 with a pCO2 of 32 and pO2 of 242 and this was done and FiO2 of 50% FiO2 has been down to 30 down to 35%. The patient has an NG tube in place. Output is been minimal. The abdominal wound is showing some erythema in the inferior portion of the vertical midabdominal wound and this may be late to some cellulitis. No active drainage from the wounds. No active drainage from the WEN drain. It drained only 110 mL of serosanguineous material overnight. The patient is on Zosyn and Flagyl. Note the patient was in the hospital in December 2016 and the patient at that time presented with a similar abdominal pain and the CAT scan of the abdomen showed left upper quadrant Jujenal process. Based on all this the patient was taken to the operating room and exploration was done with small bowel was run fluid Treitz and in the left upper quadrant there was a small bowel inflammatory mass. There appeared to be extension of the mass into the mesentery which yet again urned out to be an inflamatory process. The mass appeared to be inflamed. At this point a limited small bowel resection was performed by dividing the small bowel proximally distally to the mass using the linear cutter stapler. A [id number] functional end-to-end staple anastomosis created . Postop, the patient was brought into the intensive care unit intubated on a mechanical ventilator. I successfully extubated the patient and following further care she was discharged home. On 03/15/2017 the patient is being seen in follow-up. I was able to extubate patient yesterday without any major difficulties. She is confused for now. She is able to talk. She is hemodynamically stable on no pressors. She is on IV Zosyn and the wound cultures currently are still pending however there showing gram-negative bacilli. She is afebrile for now. She is producing adequate amount of urine output. She is on IV fluids and she is receiving 100 mL of D5/3 A of bicarb and her serum bicarb level is improved and it's up to 23. She has however developing acute kidney injury. Creatinine is up to 1.9. She is producing approximately 34 40 mL hour of urine output. Colostomy site is functional. She failed a swallow evaluation yesterday. She pulled out her NG tube. No abdominal distention. Surgical wound site is dry clean and intact. The patient is seen again today 03/16/2017 in follow-up on the surgical floor. She is currently awake and alert in no acute distress. She denies any worsening shortness of breath, cough or congestion. Her surgical pain is well controlled. Her dressing is dry and intact. WEN drain remains in place. Ostomy is functioning. Wound culture of the groin was positive for E. coli. She is currently on Zosyn. No leukocytosis. Hemoglobin 9.0. On 03/17/2017 the patient was seen in the surgical floor. She was able to sit up on a chair. Her colostomy site is functional. WEN drains in place. She has no specific complaints. She is awake and alert. Pulse ox is 94% liters of oxygen nasal cannula. Afebrile. Hemodynamically stable. No other significant events over the past 24 hours. General surgeries on the case. The patient was given a dose of Lasix to improve her urine output. She is taking oral intake mainly clear liquids. The patient is seen again today 03/18/2017 in follow-up on the surgical floor. She is currently resting quite comfortably in bed. She is awake and alert in no acute distress. She is working well of the incentive spirometer. She is maintaining good O2 saturations in the upper 90s on room air. She's been afebrile. Hemodynamically stable. No leukocytosis. Hemoglobin 8.9. Creatinine 1.88. Nephrology is on the case as well. Objective - Vital Signs Vital signs: Vital Signs Temp 97 F L 03/18/17 07:29 Pulse 78 03/18/17 09:26 Resp 16 03/18/17 09:26 BP 162/80 03/18/17 07:29 Pulse Ox 98 03/18/17 07:29 Intake & Output 03/17/17 03/18/17 03/18/17 18:59 06:59 18:59 Intake Total 200 Output Total 920 1200 Balance -920 -1000 Weight 66.9 kg 66.9 kg Intake: Oral 200 Output: Drainage 20 50 Right Lower Abdomen 20 50 Urine 700 550 Stool 200 600 Other: Voiding Method Indwelling Catheter Indwelling Catheter Indwelling Catheter - Exam Patient is comfortable no acute distress.Head exam was generally normal. There was no scleral icterus or corneal arcus. Mucous membranes were moist. The patient also has a right IJ triple-lumen catheter in place.Neck was supple and without jugular venous distension, thyromegaly, or carotid bruits. Carotids were easily palpable bilaterally. There was no adenopathy.Lungs were clear to auscultation and percussion, and with normal diaphragmatic excursion. No wheezes or rales were noted. Cardiac exam revealed the PMI to be normally situated and sized. The rhythm was regular and no extrasystoles were noted during several minutes of auscultation. The first and second heart sounds were normal and physiologic splitting of the second heart sound was noted. There were no murmurs, rubs, clicks, or gallops. Abdomen is soft there is a mid incisional wound which is not draining at this point. Dressing dry and intact. WEN drain remains in place. Ostomy functioning. The area of erythema over the lower abdominal wall is completely subsided.. Examination of the extremities revealed easily palpable radial, femoral and pedal pulses. There was no cyanosis, clubbing or edema. Neurologically the patient is sedated yet she withdraws to painful stimuli. Skeletal examination shows no deformities or arthritis. - Labs CBC & Chem 7: 03/18/17 07:58 03/18/17 08:02 Labs: Abnormal Lab Results - Last 24 Hours (Table) 03/17/17 03/17/17 03/18/17 Range/Units 17:13 20:51 06:42 RBC (3.80-5.40) m/uL Hgb (11.4-16.0) gm/dL Hct (34.0-46.0) % MCHC (31.0-37.0) g/dL Lymphocytes # (1.0-4.8) k/uL Potassium (3.5-5.1) mmol/L Chloride (98-107) mmol/L Carbon Dioxide (22-30) mmol/L Creatinine (0.52-1.04) mg/dL Glucose (74-99) mg/dL POC Glucose (mg/dL) 143 H 105 H 107 H (75-99) mg/dL Calcium (8.4-10.2) mg/dL Total Protein (6.3-8.2) g/dL Albumin (3.5-5.0) g/dL 03/18/17 03/18/17 03/18/17 Range/Units 07:58 08:02 11:40 RBC 3.18 L (3.80-5.40) m/uL Hgb 8.9 L (11.4-16.0) gm/dL Hct 29.5 L (34.0-46.0) % MCHC 30.2 L (31.0-37.0) g/dL Lymphocytes # 0.7 L (1.0-4.8) k/uL Potassium 3.4 L (3.5-5.1) mmol/L Chloride 111 H (98-107) mmol/L Carbon Dioxide 21 L (22-30) mmol/L Creatinine 1.88 H (0.52-1.04) mg/dL Glucose 115 H (74-99) mg/dL POC Glucose (mg/dL) 128 H (75-99) mg/dL Calcium 7.8 L (8.4-10.2) mg/dL Total Protein 4.6 L (6.3-8.2) g/dL Albumin 2.1 L (3.5-5.0) g/dL Microbiology - Last 24 Hours (Table) 03/12/17 20:10 Blood Culture - Preliminary Blood No Growth after 120 hours 03/12/17 10:51 Blood Culture - Preliminary Blood No Growth after 120 hours Assessment and Plan Plan: Assessment 1 exploratory laparotomy, sigmoid resection, and colostomy, lysis of adhesions and partial omentectomy. The patient was found to have a complicated diverticulitis of the sigmoid with intra-abdominal abscess formation. Currently on a combination of Unasyn and Flagyl and the wound cultures are showing E. coli.. Hemodynamically stable. The patient is on no pressors. The patient is producing adequate amount of urine output The colostomy site is functional and viable. WEN drain remains in place. No abdominal distention. NG tube has been removed. 2 small bowel resection in December 2016 which turned out to be an inflammatory mass rather than a true malignancy. The patient recovered from that without any major difficulties. 3 postoperative ventilator dependence. The patient's metabolic acidosis was corrected and the patient was extubated without any major difficulties. 4 dementia, 5 diabetes mellitus, maintained on oral hypoglycemics and the patient will be placed on this a scale coverage for now 6 hyperlipidemia 7 coronary artery disease with previous myocardial infarction 8 seizure disorder many years back and the patient has not been on seizure medication. Her last seizure was back in the 70s., 9 sleep apnea, obstructive sleep apnea with suboptimal compliance to CPAP therapy 10 recent fall with a nasal fracture 11 chronic anemia 12 peripheral vascular disease 13 diverticulosis, with previous history of bowel resection, colostomy and subsequent reversal. 14 cardiac murmur 15 remote history of DVT 16 bipolar disorder 17 chronic bronchial asthma 18 non-anion gap metabolic acidosis, recovered with bicarb infusion. Plan: The patient was seen and evaluated by Dr. Silver. She is stable from the pulmonary standpoint. She needs increased encouragement regarding the use of the incentive spirometer and cough and deep breathing exercises. Will continue with bronchodilators. Diet advanced per surgical services. Ostomy is functioning. We'll increase her activity as tolerated. We'll continue to follow. I, the cosigning physician, have performed a history and physical examination on the patient. She continues with faint crackles in the posterior bases. Increase use the incentive spirometer. I have discussed the assessment and plan of care with my nurse practitioner Guerda Jackson. I agree with the above dictated note.
[2017-03-18] MEDS: MAGNESIUM SULFATE-D5W PMX 1 GM in DEXTROSE/WATER 1 100ML.BAG IVPB SCH ×2 (13:44→15:02)
--- NOTE | 2017-03-18 13:53 | P.PN ---
Subjective Progress Note Date: 03/18/17 03/12/2017 This is a 66 year old female who presented to the ER with a chief complaint of abdominal pain. The patient was brought in by her sister, Reny, who is also her legal guardian. Her abdominal pain has been present for approximately 2 days. In the emergency room, a CT scan of the abdomen and pelvis was completed which revealed inflammatory changes in the pelvis suggestive of a 6 cm peridiverticular abscess anterior to the mid sigmoid colon. A chest x-ray was completed which was unremarkable. The patient has underwent prior abdominal surgeries. 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 The patient was admitted to the hospital under the care of Dr. Leal. A consult was placed to Dr. Golden, the patient's PCP, for medical management. Consults were also placed to interventional radiology for possible drainage of the abscess. The patient was seen and examined this morning at the bedside with Dr. Golden. There is no family present at this time. The patient is very lethargic this morning. She would not open her eyes. She does have a history of dementia. However she would answer questions and nod appropriately. She denies chest pain or shortness of breath. Bowel sounds are present. She did have severe pain when her right lower quadrant was palpated, however she denied pain upon palpation of left quadrant. However, it is noted that the patient had left quadrant pain when palpated per surgery's note. Her white count was elevated on admission at 17.0. It is 13.9 this morning. She is receiving zosyn. 03/13/2017 Patient seen and examined this morning. She appears more awake this morning. Able to open eyes. Continues to complain of right side abdominal pain but she states it is improved since yesterday. She is NPO for surgery today with Dr. Leal. Procedure planned is drainage of pelvic abscess, sigmoid colectomy, and colostomy. She was hypoglycemic last night with a BS of 57 and 61. This morning she is 101. Dr. Golden started the patient on D5.45 @ 125cc/hr. Her temperatute this morning is 99.9F. Her Tmax over the last [address] Dey, infectious disease, is also on consult. The patient remains on Vanco , Zosyn, and Flagyl. 03/14/2017 Patient seen and examined this morning by Dr. Golden. Patient underwent an exploratory laparotomy, lysis of adhesions, small bowel resection, and sigmoid colectomy with end colostomy. The patient remained on the ventilator after surgery and was transferred to the ICU. The patients urine output was low and she was bolused with normal saline. Her vital signs remained stable. her white count this morning is 12.6 and hemoglobin is 10.6. WEN drain is present. Her surgical incision site does have some erythema present and resembles a cellulitis. She remains on zosyn and flagyl. The patient underwent a CPAP trial this morning and was successfully extubated. 03/15/2017 Patient was seen and examined this morning by Dr. Golden. Patient is POD #2 exploratory laparotomy, lysis of adhesions, small bowel resection, sigmoid colectomy with end colostomy. The patient was extubated yesterday. She is on room air and maintaining oxygen saturations greater than 92%. She is confused. She pulled out her NG tube yesterday. Her blood culture from 03/11/2017 was positive for staphylococcus epidermidis, which is likely contamination. Her repeat cultures are negative at the 48 hour luis alberto. Her wound culture is still pending but preliminary results show gram negative bacilli. She remains on zosyn per infectious disease. WEN drain remains intact with serous drainage. Colostomy stoma is pink and moist. No stool noted in the colostomy at this time. Her potassium is low at 3.1 this morning and is being replaced per protocol. Her creatinine this morning is 1.9. Yesterday it was 1.2. It was 0.9 on admission. She is receiving D5 with 3 amps of bicarb at 100cc/hr. 03/16/[address] Henson (covering for Dr. Golden) 03/17/[address] Henson (covering for Dr. Golden) 03/18/2017 The patient was seen and examined this morning by Dr. Golden. Patient is POD #5 exploratory laparotomy, lysis of adhesions, small bowel resection, sigmoid colectomy with end colostomy. She is currently sitting up in the chair resting. Diet was advanced today to full liquid per surgical service. Her colostomy has brown loose output. Nephrology was consulted over the weekend for acute kidney injury. Her creatinine was 1.96 yesterday. Today it is 1.88. It peaked at 2.03. WEN drain remains intact. Dressing to abdomen is clean dry and intact. Casarez remains intact per nephrology recommendations. Potassium is low this morning at 3.4. Objective - Vital Signs Vital signs: Vital Signs Temp 97 F L 03/18/17 07:29 Pulse 78 03/18/17 09:26 Resp 16 03/18/17 09:26 BP 162/80 03/18/17 07:29 Pulse Ox 98 03/18/17 07:29 Intake & Output 03/17/17 03/18/17 03/18/17 18:59 06:59 18:59 Intake Total 200 Output Total 920 1200 Balance -920 -1000 Weight 66.9 kg 66.9 kg Intake: Oral 200 Output: Drainage 20 50 Right Lower Abdomen 20 50 Urine 700 550 Stool 200 600 Other: Voiding Method Indwelling Catheter Indwelling Catheter Indwelling Catheter - Exam GENERAL: awake and alert. pleasantly confused. RESPIRATORY: Lungs clear bilaterally. No use of accessory muscles. Patient maintaining oxygen saturation greater than 92%. CARDIOVASCULAR: S1 and S2 noted. No murmurs auscultated. No JVD noted. EXTREMITIES: No edema noted. Palpable pedal pulses +2. ABDOMEN: No distention noted. Abdomen soft and round. WEN drain in place. Dressing to abdominal surgical site noted. - Labs CBC & Chem 7: 03/18/17 07:58 03/18/17 08:02 Labs: Abnormal Lab Results - Last 24 Hours (Table) 03/17/17 03/17/17 03/18/17 Range/Units 17:13 20:51 06:42 RBC (3.80-5.40) m/uL Hgb (11.4-16.0) gm/dL Hct (34.0-46.0) % MCHC (31.0-37.0) g/dL Lymphocytes # (1.0-4.8) k/uL Potassium (3.5-5.1) mmol/L Chloride (98-107) mmol/L Carbon Dioxide (22-30) mmol/L Creatinine (0.52-1.04) mg/dL Glucose (74-99) mg/dL POC Glucose (mg/dL) 143 H 105 H 107 H (75-99) mg/dL Calcium (8.4-10.2) mg/dL Total Protein (6.3-8.2) g/dL Albumin (3.5-5.0) g/dL 03/18/17 03/18/17 03/18/17 Range/Units 07:58 08:02 11:40 RBC 3.18 L (3.80-5.40) m/uL Hgb 8.9 L (11.4-16.0) gm/dL Hct 29.5 L (34.0-46.0) % MCHC 30.2 L (31.0-37.0) g/dL Lymphocytes # 0.7 L (1.0-4.8) k/uL Potassium 3.4 L (3.5-5.1) mmol/L Chloride 111 H (98-107) mmol/L Carbon Dioxide 21 L (22-30) mmol/L Creatinine 1.88 H (0.52-1.04) mg/dL Glucose 115 H (74-99) mg/dL POC Glucose (mg/dL) 128 H (75-99) mg/dL Calcium 7.8 L (8.4-10.2) mg/dL Total Protein 4.6 L (6.3-8.2) g/dL Albumin 2.1 L (3.5-5.0) g/dL Microbiology - Last 24 Hours (Table) 03/12/17 20:10 Blood Culture - Preliminary Blood No Growth after 120 hours 03/12/17 10:51 Blood Culture - Preliminary Blood No Growth after 120 hours Assessment and Plan Plan: ASSESSMENT: -Abdominal pain, present on admission, likely secondary to 6 cm peridiverticular abscess anterior to the mid sigmoid colon, resolving -s/p exploratory laparotomy, lysis of adhesions, and bowel resection with colostomy on March 13, 2017, POD #5. -History of recent exploratory laparotomy with lysis of adhesions and 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 -History of dementia -History of coronary artery disease with myocardial infarction -Diabetes mellitus, type II -Hypokalemia -Acute kidney injury secondary to ischemic ATN, creatinine 0.9 on admission, 1.88 this morning PLAN: -Continue post operative care per Dr Leal -Infectious disease on consult -Antibiotics per infectious disease recommendations -Nephrology on consult for STEVEN. -Monitor labs, monitor kidney function -Replace potassium per protocol -Pain Control -GI prophylaxis: Pepcid 20mg IV daily -DVT prophylaxis: Heparin 5000 units subcu every 8 hours -Monitor vital signs and address as appropriate -Monitor capillary blood glucose -Humalog sliding scale coverage -PT/OT -Discharge planning The above impression and plan of care have been discussed and directed by signing physician. Torie Willett, nurse practitioner, acting as scribe for signing physician.
[2017-03-18] MEDS ORDERED: MEMANTINE 5 MG TAB PO SCH (14:01)
[2017-03-18 16:54] LABS: Glucose,Whole Blood 150 mg/dL (75-99)
[2017-03-18 20:05] LABS: Glucose,Whole Blood 117 mg/dL (75-99)
[2017-03-18] MEDS: MEMANTINE 5 MG TAB PO SCH (20:57)
[2017-03-18] MEDS: PANTOPRAZOLE 40 MG TABLET PO SCH (20:57)
[2017-03-18] MEDS: risperiDONE 1 MG TAB PO SCH (20:57)
[2017-03-18] MEDS: MIRTAZAPINE 15 MG TAB PO SCH (20:58)
[2017-03-19] MEDS: AMPICILLIN-SULBACTAM 3 GM in SODIUM CHLORIDE 0.9% 100 ML IVPB SCH ×2 (05:52→19:06)
[2017-03-19] MEDS: D5-0.45% NACL WITH KCL 20MEQ/L 1,000 ML IV SCH (06:14)
[2017-03-19 07:10] LABS: Glucose,Whole Blood 127 mg/dL (75-99)
[2017-03-19] MEDS: ALBUTEROL NEBULIZED 2.5 MG/3 ML INHALATION SCH ×4 (07:19→21:29)
[2017-03-19] MEDS: INSULIN LISPRO (humaLOG) 300 UNIT/3 ML VIAL SQ SCH ×4 (07:26→20:22)
[2017-03-19 08:19] LABS: Basophils # (A) 0.1 k/uL (0-0.2); Basophils % (A) 1 %; CH 28.2; CHCM 31.1; Eosinophils # (A) 0.3 k/uL (0-0.7); Eosinophils % (A) 4 %; HCT 30.9 % (34.0-46.0); HDW 2.31; HGB 9.5 gm/dL (11.4-16.0); Hypochromasia Slight; Luc # (Auto) 0.17; Luc % (Auto) 2; Lymphocytes # (A) 0.9 k/uL (1.0-4.8); Lymphocytes % (A) 12 %; MCH 27.9 pg (25.0-35.0); MCHC 30.7 g/dL (31.0-37.0); MCV 90.8 fL (80.0-100.0); Mean Platelet Volume 6.9; Monocytes # (A) 0.4 k/uL (0-1.0); Monocytes % (A) 6 %; Neutrophils # (A) 5.5 k/uL (1.3-7.7); Neutrophils % (A) 75 %; RDW 13.5 % (11.5-15.5); WBC 7.3 k/uL (3.8-10.6); WBC (Perox) 7.36
[2017-03-19 08:29] LABS: Potassium 3.8 mmol/L (3.5-5.1)
[2017-03-19] MEDS: HEPARIN SODIUM,PORCINE 5,000 UNIT/ML 1 ML VIAL SQ SCH ×4 (08:34→23:34)
[2017-03-19] MEDS: metroNIDAZOLE 500 MG TAB PO SCH ×3 (08:34→20:25)
[2017-03-19] MEDS: DONEPEZIL 10 MG TAB PO SCH (08:35)
[2017-03-19] MEDS: MEMANTINE 5 MG TAB PO SCH ×2 (08:35→20:25)
[2017-03-19] MEDS: MONTELUKAST 10 MG TAB PO SCH (08:35)
[2017-03-19] MEDS: FAMOTIDINE 20 MG TAB PO SCH (08:35)
[2017-03-19] MEDS: SERTRALINE 50 MG TAB PO SCH (08:35)
[2017-03-19] MEDS: LORATADINE 10 MG TAB PO SCH (08:36)
--- NOTE | 2017-03-19 08:57 | P.PN ---
Subjective Progress Note Date: 03/19/17 Principal diagnosis: Complicated diverticulitis of the sigmoid with abscess, Harsh post exploratory laparotomy, sigmoid resection and colostomy Complicated diverticulitis of the sigmoid with abscess. 66-year-old female patient, presented to the hospital because of abdominal pain. Pain was mainly in the left lower quadrant. Patient has significant tenderness involving the left lower quadrant. There is significant tenderness to the left lower quadrant white count was elevated tachycardic heart rate in the 90s and he was sat been started on IV Zosyn. CT of the abdomen and pelvis showed inflammatory changes the pelvis and complicated sigmoid diverticulitis and 6 cm pericolonic abscess. Based on that the patient was taken to the OR and she underwent exp. laparotomy, Lysis of adhesions, Small bowel resection, Sigmoid colectomy with end colostomy and a Partial greater omentectomy. Pos op the patient was kept intubated and the patient was brought in the the ICU for further care and weaning. The patient is on a mechanical ventilator on AC of 14 , TV 450, Fio2 1005 and a PEEP of 5. The patient's ABG showed a component of metablic acidosis and the patient's serum bicarb was down to 15 he had overnight the patient was kept sedated on Diprivan. The patient was given a total of 4 L of IV fluids. 2 L of normal saline was given to her and another liter at midnight. Her current urine output is somewhat between 20-25 mL an hour. Renal function is stable. She is afebrile. She is hemodynamically stable. She is on no pressors. The serum bicarb is still low at 13 and the patient has a component of non-anion gap metabolic acidosis. Most recent blood gases from this morning showed a pH of 7.31 with a pCO2 of 32 and pO2 of 242 and this was done and FiO2 of 50% FiO2 has been down to 30 down to 35%. The patient has an NG tube in place. Output is been minimal. The abdominal wound is showing some erythema in the inferior portion of the vertical midabdominal wound and this may be late to some cellulitis. No active drainage from the wounds. No active drainage from the WEN drain. It drained only 110 mL of serosanguineous material overnight. The patient is on Zosyn and Flagyl. Note the patient was in the hospital in December 2016 and the patient at that time presented with a similar abdominal pain and the CAT scan of the abdomen showed left upper quadrant Jujenal process. Based on all this the patient was taken to the operating room and exploration was done with small bowel was run fluid Treitz and in the left upper quadrant there was a small bowel inflammatory mass. There appeared to be extension of the mass into the mesentery which yet again urned out to be an inflamatory process. The mass appeared to be inflamed. At this point a limited small bowel resection was performed by dividing the small bowel proximally distally to the mass using the linear cutter stapler. A [id number] functional end-to-end staple anastomosis created . Postop, the patient was brought into the intensive care unit intubated on a mechanical ventilator. I successfully extubated the patient and following further care she was discharged home. On 03/15/2017 the patient is being seen in follow-up. I was able to extubate patient yesterday without any major difficulties. She is confused for now. She is able to talk. She is hemodynamically stable on no pressors. She is on IV Zosyn and the wound cultures currently are still pending however there showing gram-negative bacilli. She is afebrile for now. She is producing adequate amount of urine output. She is on IV fluids and she is receiving 100 mL of D5/3 A of bicarb and her serum bicarb level is improved and it's up to 23. She has however developing acute kidney injury. Creatinine is up to 1.9. She is producing approximately 34 40 mL hour of urine output. Colostomy site is functional. She failed a swallow evaluation yesterday. She pulled out her NG tube. No abdominal distention. Surgical wound site is dry clean and intact. The patient is seen again today 03/16/2017 in follow-up on the surgical floor. She is currently awake and alert in no acute distress. She denies any worsening shortness of breath, cough or congestion. Her surgical pain is well controlled. Her dressing is dry and intact. WEN drain remains in place. Ostomy is functioning. Wound culture of the groin was positive for E. coli. She is currently on Zosyn. No leukocytosis. Hemoglobin 9.0. On 03/17/2017 the patient was seen in the surgical floor. She was able to sit up on a chair. Her colostomy site is functional. WEN drains in place. She has no specific complaints. She is awake and alert. Pulse ox is 94% liters of oxygen nasal cannula. Afebrile. Hemodynamically stable. No other significant events over the past 24 hours. General surgeries on the case. The patient was given a dose of Lasix to improve her urine output. She is taking oral intake mainly clear liquids. The patient is seen again today 03/18/2017 in follow-up on the surgical floor. She is currently resting quite comfortably in bed. She is awake and alert in no acute distress. She is working well of the incentive spirometer. She is maintaining good O2 saturations in the upper 90s on room air. She's been afebrile. Hemodynamically stable. No leukocytosis. Hemoglobin 8.9. Creatinine 1.88. Nephrology is on the case as well. On 03/19/2017 patient is reevaluated on surgical floor. She denies any respiratory complaints. She is currently on room air with O2 saturations 98%. No febrile episodes through the night, hemodynamically stable. She is compliant with her incentive spirometer, able to achieve 500-750 today. She's been up in the chair during the day. Denies pain. No leukocytosis, creatinine today is 1.93, nephrology following. Microbiology results have been reviewed, she continues on combination of Unasyn and Flagyl per infectious service recommendations. Discharge planning is working on subacute rehab placement. Lung sounds diffuse wheezing throughout the lung gracia. Coarse scattered rhonchi in bilateral upper lobes. Weak nonproductive cough. Continue working on patient's pulmonary toileting. Colostomy producing liquid green stool, WEN drain on the right side of the abdomen with small amount of serosanguineous drainage. Objective - Vital Signs Vital signs: Vital Signs Temp 98.4 F 03/19/17 00:47 Pulse 80 03/19/17 07:32 Resp 16 03/19/17 07:19 BP 150/78 03/19/17 00:47 Pulse Ox 98 03/19/17 00:47 Intake & Output 03/18/17 03/19/17 03/19/17 18:59 06:59 18:59 Intake Total 200 Output Total 1615 1025 Balance -1415 -1025 Weight 66.9 kg Intake: Oral 200 Output: Drainage 65 Right Lower Abdomen 65 Urine 850 650 Uretheral (Casarez) 650 Stool 700 375 Other: Voiding Method Indwelling Catheter Indwelling Catheter - Exam GENERAL EXAM: Alert, active, elderly female comfortable in no apparent distress. HEAD: Normocephalic. EYES: Normal reaction of pupils, equal size. NOSE: Clear with pink turbinates. THROAT: No erythema or exudates. NECK: No masses, no JVD. CHEST: No chest wall deformity. LUNGS: Equal air entry with diffuse wheezes, coarse rhonchi. CVS: S1 and S2 normal with no audible mumurs, regular rhythm. ABDOMEN: No hepatosplenomegaly, normal bowel sounds, no guarding or rigidity. Mid abdominal incision clean dry and intact, with intact nhan. Colostomy on the left with green liquid output, WEN drain on the right side of the abdomen with serosanguineous drainage SPINE: No scoliosis or deformity SKIN: No rashes CENTRAL NERVOUS SYSTEM: No focal deficits, tone is normal in all 4 extremities. - Labs CBC & Chem 7: 03/19/17 07:24 03/19/17 07:24 Labs: Abnormal Lab Results - Last 24 Hours (Table) 03/18/17 03/18/17 03/18/17 Range/Units 07:58 08:02 11:40 RBC 3.18 L (3.80-5.40) m/uL Hgb 8.9 L (11.4-16.0) gm/dL Hct 29.5 L (34.0-46.0) % MCHC 30.2 L (31.0-37.0) g/dL Lymphocytes # 0.7 L (1.0-4.8) k/uL Potassium 3.4 L (3.5-5.1) mmol/L Chloride 111 H (98-107) mmol/L Carbon Dioxide 21 L (22-30) mmol/L Creatinine 1.88 H (0.52-1.04) mg/dL Glucose 115 H (74-99) mg/dL POC Glucose (mg/dL) 128 H (75-99) mg/dL Calcium 7.8 L (8.4-10.2) mg/dL Total Protein 4.6 L (6.3-8.2) g/dL Albumin 2.1 L (3.5-5.0) g/dL 03/18/17 03/18/17 03/19/17 Range/Units 16:50 19:51 07:05 RBC (3.80-5.40) m/uL Hgb (11.4-16.0) gm/dL Hct (34.0-46.0) % MCHC (31.0-37.0) g/dL Lymphocytes # (1.0-4.8) k/uL Potassium (3.5-5.1) mmol/L Chloride (98-107) mmol/L Carbon Dioxide (22-30) mmol/L Creatinine (0.52-1.04) mg/dL Glucose (74-99) mg/dL POC Glucose (mg/dL) 150 H 117 H 127 H (75-99) mg/dL Calcium (8.4-10.2) mg/dL Total Protein (6.3-8.2) g/dL Albumin (3.5-5.0) g/dL 03/19/17 03/19/17 Range/Units 07:24 07:24 RBC 3.40 L (3.80-5.40) m/uL Hgb 9.5 L (11.4-16.0) gm/dL Hct 30.9 L (34.0-46.0) % MCHC 30.7 L (31.0-37.0) g/dL Lymphocytes # 0.9 L (1.0-4.8) k/uL Potassium (3.5-5.1) mmol/L Chloride 111 H (98-107) mmol/L Carbon Dioxide (22-30) mmol/L Creatinine 1.93 H (0.52-1.04) mg/dL Glucose 107 H (74-99) mg/dL POC Glucose (mg/dL) (75-99) mg/dL Calcium 8.0 L (8.4-10.2) mg/dL Total Protein (6.3-8.2) g/dL Albumin (3.5-5.0) g/dL Microbiology - Last 24 Hours (Table) 03/12/17 20:10 Blood Culture - Final Blood No Growth after 144 hours 03/12/17 10:51 Blood Culture - Final Blood No Growth after 144 hours Assessment and Plan Plan: Assessment and Plan Plan: Assessment 1 exploratory laparotomy, sigmoid resection, and colostomy, lysis of adhesions and partial omentectomy. Postop day 6. The patient was found to have a complicated diverticulitis of the sigmoid with intra-abdominal abscess formation. Currently on a combination of Unasyn and Flagyl and the wound cultures are showing E. coli.. Hemodynamically stable. The colostomy site is functional and viable. WEN drain remains in place. No abdominal distention. NG tube has been removed. 2 small bowel resection in December 2016 which turned out to be an inflammatory mass rather than a true malignancy. The patient recovered from that without any major difficulties. 3 postoperative ventilator dependence. The patient's metabolic acidosis was corrected and the patient was extubated without any major difficulties. 4 dementia, 5 diabetes mellitus, maintained on oral hypoglycemics and the patient will be placed on this a scale coverage for now 6 hyperlipidemia 7 coronary artery disease with previous myocardial infarction 8 seizure disorder many years back and the patient has not been on seizure medication. Her last seizure was back in the 70s., 9 sleep apnea, obstructive sleep apnea with suboptimal compliance to CPAP therapy 10 recent fall with a nasal fracture 11 chronic anemia 12 peripheral vascular disease 13 diverticulosis, with previous history of bowel resection, colostomy and subsequent reversal. 14 cardiac murmur 15 remote history of DVT 16 bipolar disorder 17 chronic bronchial asthma 18 non-anion gap metabolic acidosis, recovered with bicarb infusion. Plan: The patient was seen and evaluated by Dr. Silver. She is stable from the pulmonary standpoint. She needs increased encouragement regarding the use of the incentive spirometer and cough and deep breathing exercises. Will continue with bronchodilators. Diet advanced per surgical services. Ostomy is functioning. Discharge planning is working on rehab placement post discharge. I performed a history & physical examination of the patient and discussed their management with my nurse practitioner, Annelise Du. I reviewed the nurse practitioner's note and agree with the documented findings and plan of care.
--- NOTE | 2017-03-19 11:10 | P.PN ---
Subjective Progress Note Date: 03/19/17 66-year-old female examined at bedside sitting up in bed denying any dizziness lightheadedness chest pain or shortness of breath. Currently on room air. Sats are documented 98%. No cough noted. Abdominal binder in place surgical dressing dry ostomy left lower quadrant moderate amount of liquid stool noted indwelling Casarez catheter remains in place creatinine is up this morning 1.9 was 1.8 the day before patient is being followed by nephrology service brand manager pursuing the discharge plan patient being evaluated for subacute rehab [facility] patient choice postop day 13 of March exploratory laparotomy, lysis of adhesion, small bowel resection, sigmoid colectomy with end colostomy. Objective - Vital Signs Vital signs: Vital Signs Temp 98.3 F 03/19/17 08:00 Pulse 83 03/19/17 08:00 Resp 16 03/19/17 08:00 BP 151/82 03/19/17 08:00 Pulse Ox 96 03/19/17 08:00 Intake & Output 03/18/17 03/19/17 03/19/17 18:59 06:59 18:59 Intake Total 200 Output Total 1615 1025 75 Balance -1415 -1025 -75 Weight 66.9 kg Intake: Oral 200 Output: Drainage 65 Right Lower Abdomen 65 Urine 850 650 Uretheral (Casarez) 650 Stool 700 375 75 Other: Voiding Method Indwelling Catheter Indwelling Catheter Indwelling Catheter - Exam Physical exam 66-year-old female sitting up in bed pleasant oriented to person and place appears in no acute distress Lungs diminished at the bases otherwise adequate air movement on room air sats are 95% no cough noted no wheezing Heart S1-S2 audible and regular no murmur noted denying chest pain Abdomen abdominal binder removed WEN drain in place the right lower quadrant 15 mL documented for 8 hours serous drainage noted ostomy left lower quadrant stoma pink 200 mL's liquid brown stool in ostomy bag surgical dressing dry indwelling Casarez catheter in place reports no nausea vomiting few hypoactive bowel tones noted not distended surgical tenderness appropriate Extremities Venodyne's on to the bilateral lower extremities - Labs CBC & Chem 7: 03/19/17 07:24 03/19/17 07:24 Labs: Abnormal Lab Results - Last 24 Hours (Table) 03/18/17 03/18/17 03/18/17 Range/Units 11:40 16:50 19:51 RBC (3.80-5.40) m/uL Hgb (11.4-16.0) gm/dL Hct (34.0-46.0) % MCHC (31.0-37.0) g/dL Lymphocytes # (1.0-4.8) k/uL Chloride (98-107) mmol/L Creatinine (0.52-1.04) mg/dL Glucose (74-99) mg/dL POC Glucose (mg/dL) 128 H 150 H 117 H (75-99) mg/dL Calcium (8.4-10.2) mg/dL 03/19/17 03/19/17 03/19/17 Range/Units 07:05 07:24 07:24 RBC 3.40 L (3.80-5.40) m/uL Hgb 9.5 L (11.4-16.0) gm/dL Hct 30.9 L (34.0-46.0) % MCHC 30.7 L (31.0-37.0) g/dL Lymphocytes # 0.9 L (1.0-4.8) k/uL Chloride 111 H (98-107) mmol/L Creatinine 1.93 H (0.52-1.04) mg/dL Glucose 107 H (74-99) mg/dL POC Glucose (mg/dL) 127 H (75-99) mg/dL Calcium 8.0 L (8.4-10.2) mg/dL Microbiology - Last 24 Hours (Table) 03/12/17 20:10 Blood Culture - Final Blood No Growth after 144 hours 03/12/17 10:51 Blood Culture - Final Blood No Growth after 144 hours Assessment and Plan Plan: Impression Present on admission abdominal pain left lower quadrant onset 2 days prior suspect due to 6 cm peridiverticular abscess anterior to the mid sigmoid colon History of a recent 11/30/2016 exploratory laparotomy lysis of adhesions 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 History of Parkinson's Dementia no behavior disturbance Coronary artery disease with prior myocardial infarction Seizure disorder last seizure in the 70s Chronic anemia Peripheral vascular disease Status post March 13 exploratory laparotomy, lysis of adhesions, small bowel resection, sigmoid colectomy with end colostomy Postop hypokalemia metabolic acidosis secondary to acute kidney injury nonoliguric acute kidney injury secondary to ischemic ATN secondary to sepsis Plan Potassium to be replaced per protocol Continue postop surgical care per infectious disease antibiotics recommendations noted DVT and GI prophylaxis Home meds as appropriate Continue recommendations by nephrology to continue indwelling Casarez catheter for another 24 hours Pain control PT OT eval Repeat labs in the morning advance diet The above impression and plan of care have been discussed and directed by signing physician. Danuta Ocampo nurse practitioner acting as scribe for signing physician.
[2017-03-19] MEDS: HYDROcodone/APAP 5-325MG 1 EACH TAB PO PRN (11:25)
[2017-03-19 11:47] LABS: Glucose,Whole Blood 118 mg/dL (75-99)
--- NOTE | 2017-03-19 12:00 | P.PN ---
Subjective Patient is seen in follow-up for acute kidney injury. Her baseline creatinine is 1 and is now in the range of 1.8-1.9. Patient presented with abdominal pain and was noted to have an abscess. She underwent exploratory laparotomy with lysis of adhesions this admission. Cultures have been positive for E. coli. She is maintained on antibiotics per infectious disease recommendations. Her diet has gradually been advanced to soft today. She is nonoliguric. No vomiting. Vital signs are stable. General: The patient appeared well nourished and normally developed. HEENT: Head exam is unremarkable. Neck is without jugular venous distension. LUNGS: Lungs are clear to auscultation and percussion. Breath sounds decreased. HEART: Rate and Rhythm are regular. First and second heart sounds normal. No murmurs, rubs or gallops. ABDOMEN: Abdominal exam reveals normal bowel sounds. Generalized tenderness. Bowel sounds present. EXTREMITITES: No clubbing, cyanosis, or edema. Objective - Vital Signs Vital signs: Vital Signs Temp 98.3 F 03/19/17 08:00 Pulse 83 03/19/17 08:00 Resp 16 03/19/17 08:00 BP 151/82 03/19/17 08:00 Pulse Ox 96 03/19/17 08:00 Intake & Output 03/18/17 03/19/17 03/19/17 18:59 06:59 18:59 Intake Total 200 Output Total 1615 1025 75 Balance -1415 -1025 -75 Weight 66.9 kg Intake: Oral 200 Output: Drainage 65 Right Lower Abdomen 65 Urine 850 650 Uretheral (Casarez) 650 Stool 700 375 75 Other: Voiding Method Indwelling Catheter Indwelling Catheter Indwelling Catheter - Labs CBC & Chem 7: 03/19/17 07:24 03/19/17 07:24 Labs: Abnormal Lab Results - Last 24 Hours (Table) 03/18/17 03/18/17 03/19/17 Range/Units 16:50 19:51 07:05 RBC (3.80-5.40) m/uL Hgb (11.4-16.0) gm/dL Hct (34.0-46.0) % MCHC (31.0-37.0) g/dL Lymphocytes # (1.0-4.8) k/uL Chloride (98-107) mmol/L Creatinine (0.52-1.04) mg/dL Glucose (74-99) mg/dL POC Glucose (mg/dL) 150 H 117 H 127 H (75-99) mg/dL Calcium (8.4-10.2) mg/dL 03/19/17 03/19/17 03/19/17 Range/Units 07:24 07:24 11:40 RBC 3.40 L (3.80-5.40) m/uL Hgb 9.5 L (11.4-16.0) gm/dL Hct 30.9 L (34.0-46.0) % MCHC 30.7 L (31.0-37.0) g/dL Lymphocytes # 0.9 L (1.0-4.8) k/uL Chloride 111 H (98-107) mmol/L Creatinine 1.93 H (0.52-1.04) mg/dL Glucose 107 H (74-99) mg/dL POC Glucose (mg/dL) 118 H (75-99) mg/dL Calcium 8.0 L (8.4-10.2) mg/dL Microbiology - Last 24 Hours (Table) 03/12/17 20:10 Blood Culture - Final Blood No Growth after 144 hours 03/12/17 10:51 Blood Culture - Final Blood No Growth after 144 hours Assessment and Plan Plan: Assessment: #1. Nonoliguric acute kidney injury secondary to ischemic ATN secondary to sepsis. Baseline creatinine is 1 peaked at 2.03 this admission. It is 1.93 today. Urinalysis is quite benign. She also received IV contrast dye on March 11. No evidence of hydronephrosis on CAT scan. #2.. Diverticular abscess status post exploratory laparotomy, lysis of adhesions, small bowel resection, and sigmoid colectomy with end colostomy. #3. Hypokalemia secondary to poor oral intake. Magnesium replete. Improved. #4. Metabolic acidosis secondary to acute kidney injury and IV fluids. Improved. Plan: I will change the IV fluids to normal saline to be run at 70 mL an hour. Appeared to discontinue Casarez catheter. Monitor accurate I's and O's. Avoid nephrotoxic agents and hypotensive episodes. Antibiotics per infectious disease recommendations. Repeat electrolytes in the morning. Potential subacute rehab upon discharge.
--- NOTE | 2017-03-19 12:02 | P.PN ---
Subjective Progress Note Date: 03/19/17 03/12/2017 This is a 66 year old female who presented to the ER with a chief complaint of abdominal pain. The patient was brought in by her sister, Reny, who is also her legal guardian. Her abdominal pain has been present for approximately 2 days. In the emergency room, a CT scan of the abdomen and pelvis was completed which revealed inflammatory changes in the pelvis suggestive of a 6 cm peridiverticular abscess anterior to the mid sigmoid colon. A chest x-ray was completed which was unremarkable. The patient has underwent prior abdominal surgeries. 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 The patient was admitted to the hospital under the care of Dr. Leal. A consult was placed to Dr. Golden, the patient's PCP, for medical management. Consults were also placed to interventional radiology for possible drainage of the abscess. The patient was seen and examined this morning at the bedside with Dr. Golden. There is no family present at this time. The patient is very lethargic this morning. She would not open her eyes. She does have a history of dementia. However she would answer questions and nod appropriately. She denies chest pain or shortness of breath. Bowel sounds are present. She did have severe pain when her right lower quadrant was palpated, however she denied pain upon palpation of left quadrant. However, it is noted that the patient had left quadrant pain when palpated per surgery's note. Her white count was elevated on admission at 17.0. It is 13.9 this morning. She is receiving zosyn. 03/13/2017 Patient seen and examined this morning. She appears more awake this morning. Able to open eyes. Continues to complain of right side abdominal pain but she states it is improved since yesterday. She is NPO for surgery today with Dr. Leal. Procedure planned is drainage of pelvic abscess, sigmoid colectomy, and colostomy. She was hypoglycemic last night with a BS of 57 and 61. This morning she is 101. Dr. Golden started the patient on D5.45 @ 125cc/hr. Her temperatute this morning is 99.9F. Her Tmax over the last [address] Dey, infectious disease, is also on consult. The patient remains on Vanco , Zosyn, and Flagyl. 03/14/2017 Patient seen and examined this morning by Dr. Golden. Patient underwent an exploratory laparotomy, lysis of adhesions, small bowel resection, and sigmoid colectomy with end colostomy. The patient remained on the ventilator after surgery and was transferred to the ICU. The patients urine output was low and she was bolused with normal saline. Her vital signs remained stable. her white count this morning is 12.6 and hemoglobin is 10.6. WEN drain is present. Her surgical incision site does have some erythema present and resembles a cellulitis. She remains on zosyn and flagyl. The patient underwent a CPAP trial this morning and was successfully extubated. 03/15/2017 Patient was seen and examined this morning by Dr. Golden. Patient is POD #2 exploratory laparotomy, lysis of adhesions, small bowel resection, sigmoid colectomy with end colostomy. The patient was extubated yesterday. She is on room air and maintaining oxygen saturations greater than 92%. She is confused. She pulled out her NG tube yesterday. Her blood culture from 03/11/2017 was positive for staphylococcus epidermidis, which is likely contamination. Her repeat cultures are negative at the 48 hour luis alberto. Her wound culture is still pending but preliminary results show gram negative bacilli. She remains on zosyn per infectious disease. WEN drain remains intact with serous drainage. Colostomy stoma is pink and moist. No stool noted in the colostomy at this time. Her potassium is low at 3.1 this morning and is being replaced per protocol. Her creatinine this morning is 1.9. Yesterday it was 1.2. It was 0.9 on admission. She is receiving D5 with 3 amps of bicarb at 100cc/hr. 03/16/[address] Henson (covering for Dr. Golden) 03/17/[address] Henson (covering for Dr. Golden) 03/18/2017 The patient was seen and examined this morning by Dr. Golden. Patient is POD #5 exploratory laparotomy, lysis of adhesions, small bowel resection, sigmoid colectomy with end colostomy. She is currently sitting up in the chair resting. Diet was advanced today to full liquid per surgical service. Her colostomy has brown loose output. Nephrology was consulted over the weekend for acute kidney injury. Her creatinine was 1.96 yesterday. Today it is 1.88. It peaked at 2.03. WEN drain remains intact. Dressing to abdomen is clean dry and intact. Casarez remains intact per nephrology recommendations. Potassium is low this morning at 3.4. 03/19/2017 Patient seen and examined this morning on rounds with Dr. Golden. Patient is POD #6 exploratory laparotomy, lysis of adhesions, small bowel resection, sigmoid colectomy with end colostomy. She is laying in the bed. She states her pain is tolerable. She was up in the chair yesterday. Her potassium was low yesterday at 3.4 and was replaced. Repeat this morning is 3.8. Hemoglobin is stable at 9.5. White count is 7.3. Creatinine is slightly worse today at 1.93 (1.88 yesterday). Nephrology is consulted. Casarez catheter remains intact per nephrology request. Colostomy has brown liquid output. WEN drain intact with minimal serosanguinous fluid. Diet has been advanced to soft foods. Objective - Vital Signs Vital signs: Vital Signs Temp 98.3 F 03/19/17 08:00 Pulse 83 03/19/17 08:00 Resp 16 03/19/17 08:00 BP 151/82 03/19/17 08:00 Pulse Ox 96 03/19/17 08:00 Intake & Output 03/18/17 03/19/17 03/19/17 18:59 06:59 18:59 Intake Total 200 Output Total 1615 1025 75 Balance -1415 -1025 -75 Weight 66.9 kg Intake: Oral 200 Output: Drainage 65 Right Lower Abdomen 65 Urine 850 650 Uretheral (Casarez) 650 Stool 700 375 75 Other: Voiding Method Indwelling Catheter Indwelling Catheter Indwelling Catheter - Exam GENERAL: awake and alert. pleasantly confused. RESPIRATORY: Lungs clear bilaterally. No use of accessory muscles. Patient maintaining oxygen saturation greater than 92%. CARDIOVASCULAR: S1 and S2 noted. No murmurs auscultated. No JVD noted. EXTREMITIES: No edema noted. Palpable pedal pulses +2. ABDOMEN: No distention noted. Abdomen soft and round. WEN drain in place. Dressing to abdominal surgical site noted. Colostomy with liquid brown stool. - Labs CBC & Chem 7: 03/19/17 07:24 03/19/17 07:24 Labs: Abnormal Lab Results - Last 24 Hours (Table) 03/18/17 03/18/17 03/19/17 Range/Units 16:50 19:51 07:05 RBC (3.80-5.40) m/uL Hgb (11.4-16.0) gm/dL Hct (34.0-46.0) % MCHC (31.0-37.0) g/dL Lymphocytes # (1.0-4.8) k/uL Chloride (98-107) mmol/L Creatinine (0.52-1.04) mg/dL Glucose (74-99) mg/dL POC Glucose (mg/dL) 150 H 117 H 127 H (75-99) mg/dL Calcium (8.4-10.2) mg/dL 03/19/17 03/19/17 03/19/17 Range/Units 07:24 07:24 11:40 RBC 3.40 L (3.80-5.40) m/uL Hgb 9.5 L (11.4-16.0) gm/dL Hct 30.9 L (34.0-46.0) % MCHC 30.7 L (31.0-37.0) g/dL Lymphocytes # 0.9 L (1.0-4.8) k/uL Chloride 111 H (98-107) mmol/L Creatinine 1.93 H (0.52-1.04) mg/dL Glucose 107 H (74-99) mg/dL POC Glucose (mg/dL) 118 H (75-99) mg/dL Calcium 8.0 L (8.4-10.2) mg/dL Microbiology - Last 24 Hours (Table) 03/12/17 20:10 Blood Culture - Final Blood No Growth after 144 hours 03/12/17 10:51 Blood Culture - Final Blood No Growth after 144 hours Assessment and Plan Plan: ASSESSMENT: -Abdominal pain, present on admission, likely secondary to 6 cm peridiverticular abscess anterior to the mid sigmoid colon, resolving -s/p exploratory laparotomy, lysis of adhesions, and bowel resection with colostomy on March 13, 2017, POD #6. -History of recent exploratory laparotomy with lysis of adhesions and 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 -History of dementia -History of coronary artery disease with myocardial infarction -Diabetes mellitus, type II -Hypokalemia, resolved -Acute kidney injury secondary to ischemic ATN, creatinine 0.9 on admission, 1.93 this morning PLAN: -Continue post operative care per Dr Leal -Infectious disease on consult -Antibiotics per infectious disease recommendations -Nephrology on consult for STEVEN. -Monitor labs, monitor kidney function -Pain Control -GI prophylaxis: Pepcid 20mg IV daily -DVT prophylaxis: Heparin 5000 units subcu every 8 hours -Monitor vital signs and address as appropriate -Monitor capillary blood glucose -Humalog sliding scale coverage -PT/OT -Discharge planning: Social work and case management working on subacute rehab. patient requesting [facility]. -Patient is stable for discharge from a medical standpoint when okay with surgery The above impression and plan of care have been discussed and directed by signing physician. Torie Willett, nurse practitioner, acting as scribe for signing physician.
--- NOTE | 2017-03-19 13:15 | CDI ---
In responding to this query, please exercise your independent professional judgment. The [facility] Coding Staff and Clinical Documentation Specialists appreciate your assistance in clarifying documentation, maintaining compliance with coding guidelines, accurately documenting patients condition and capturing severity of illness. The fact that a question is asked does not imply that any particular answer is desired or expected. Communication forms are a method of clarifying documentation and are not made part of the Legal Health Record. Thank you in advance for your clarification. Last Revision, September 2016 Viviana Herman [address] [facility] [place] [address] Documentation Clarification Form Date: 03/19/2017 12:44:00 PM From: Leonor Bauer RN, CCDS Admit Date: 03/11/2017 6:56:00 PM Patient Name: Brooklyn Carrero Visit Number: [id number] Dr. Jerry Golden/ Bernadette Willett CNP Documentation and location in medical record included Sepsis. History/Risk Factors: Ruptured diverticulitis, DM, recent exp lap w/ MASOUD and small bowel resection for small bowel mass and mesenteric abscess Clinical Indicators: ID Consult and progress notes: "Patient admitted to the hospital with sepsis and patient did have a fever of 101.3, did have elevated white count. Source is acute sigmoid diverticulitis with diverticular abscess, peridiverticular abscess about 6.3 cm" Nephrology Progress Notes: "Nonoliguric acute kidney injury secondary to ischemic ATN secondary to sepsis." WBC: 17/13.9/11.6/12.6/8.2 Left Shift: 15.6/13/10.7/11.3/7.1 Lactic acid: 1.5/1.2 Blood cultures neg x3, 1 + for staph epidermis Groin Culture x2 + for E. coli Vitals signs on admission: Temp 100.5, HR 102, RR 18, B/P 139/66, Spo2 95% ra Other Clinical Indicators: perforated sigmoid diverticulum Treatment: ID Consult: Completed Antibiotics: Unasyn 3 Gm IVPB q 12 hrs, Vanco 1250 mg Q 16 hrs IV Bolus: 4+ L 0.9 IVP bolus In your professional opinion, please clarify if these findings signify one of the following conditions, whether the condition is POA, and cause, if known: Sepsis Severe Sepsis Septic Shock Unable to determine Other, please specify Present on Admission: Yes No * Identify the (suspected) organism * Link or clarify if there is associated (due to/with): - Organ failure - Shock SIRS Criteria: 2 or more of the following may indicate SIRS Temperature < 96.8F (36C) or > 101.0F (38C) Heart Rate > 90 bpm Respiratory Rate > 20 breaths/min or PaCO2 < 32 mmHg White Blood Cell Count > 12,000 or < 4,000 cells/mm3 or > 10% bands Lactate >2.0 mmol/L (>4.0 is equivalent to septic shock) Please document in your progress notes and discharge summary in order to capture severity of illness and risk of mortality. Include clinical findings that support your diagnosis. FYI: Press F11 to launch patient chart. BREANNA
--- NOTE | 2017-03-19 15:51 | PN ---
PROGRESS NOTE DATE OF SERVICE: 03/19/2017. REASON FOR FOLLOWUP: Abdominal abscess from ruptured diverticulitis. INTERVAL HISTORY: The patient is afebrile. She is breathing comfortably. No chest pain or cough. No abdominal pain, nausea or vomiting. EXAMINATION: Blood pressure is 151/92 with a pulse of 83, temperature 98.3. She is 97% on room air. GENERAL DESCRIPTION: An elderly female up in the bed in no distress. RESPIRATORY SYSTEM: Unlabored breathing. Clear to auscultation anteriorly. HEART: S1, S2. Regular rate and rhythm. ABDOMEN: Soft. No tenderness. LABS: Hemoglobin is 9.5, white count of 7.3 with a BUN of 12, creatinine 1.93. DIAGNOSTIC IMPRESSION AND PLAN: Patient with an abdominal abscess from a ruptured sigmoid diverticulitis, status post diverting colostomy. Wound culture with anaerobic gram-negative along with Escherichia coli, which is a sensitive pathogen. Plan to finish therapy with oral Ceftin and Flagyl for another 10 days on discharge. Will keep the patient on Unasyn and Flagyl while here in the hospital. MMODL / IJN: [id number] /
[2017-03-19 17:28] LABS: Glucose,Whole Blood 98 mg/dL (75-99)
[2017-03-19] MEDS: SODIUM CHLORIDE 0.9% 1,000 ML IV SCH (17:40)
[2017-03-19 20:05] LABS: Glucose,Whole Blood 100 mg/dL (75-99)
[2017-03-19] MEDS: risperiDONE 1 MG TAB PO SCH (20:24)
[2017-03-19] MEDS: PANTOPRAZOLE 40 MG TABLET PO SCH (20:25)
[2017-03-19] MEDS: MIRTAZAPINE 15 MG TAB PO SCH (20:25)
[2017-03-20] MEDS: SODIUM CHLORIDE 0.9% 1,000 ML IV SCH ×3 (05:12→15:28)
[2017-03-20] MEDS: AMPICILLIN-SULBACTAM 3 GM in SODIUM CHLORIDE 0.9% 100 ML IVPB SCH ×2 (05:38→17:25)
[2017-03-20 07:16] LABS: Glucose,Whole Blood 100 mg/dL (75-99)
[2017-03-20] MEDS: ALBUTEROL NEBULIZED 2.5 MG/3 ML INHALATION SCH ×4 (07:29→19:56)
[2017-03-20 07:30] LABS: Calcium 8.2 mg/dL (8.4-10.2); Potassium 4.4 mmol/L (3.5-5.1); Total Bilirubin 0.3 mg/dL (0.2-1.3); Total Protein 4.7 g/dL (6.3-8.2)
[2017-03-20] MEDS: INSULIN LISPRO (humaLOG) 300 UNIT/3 ML VIAL SQ SCH ×4 (07:43→20:51)
--- NOTE | 2017-03-20 08:57 | P.PN ---
Subjective Progress Note Date: 03/20/17 66-year-old female seen and examined this morning at the bedside. It's noted that the patient has had increase ostomy output 675ml for the last 8 hours a liquid brown stool WEN drain scant amount of drainage. Currently patient is on a bedpan nursing reports patient has been incontinent of urine tolerating a diet denies any nausea vomiting C. diff on the was negative postop day 11 march exploratory laparotomy, lysis of adhesion, small bowel resection, sigmoid colectomy with end colostomy. Objective - Vital Signs Vital signs: Vital Signs Temp 98.0 F 03/20/17 07:48 Pulse 89 03/20/17 07:48 Resp 18 03/20/17 07:48 BP 175/77 03/20/17 07:48 Pulse Ox 98 03/20/17 07:48 Intake & Output 03/19/17 03/20/17 03/20/17 18:59 06:59 18:59 Intake Total 560 Output Total 975 240 Balance -975 320 Intake: Intake, IV Titration 560 Amount Sodium Chloride 0.9% 1, 560 000 ml @ 70 mls/hr IV . [id number] [facility] Rx#:[id number] Output: Drainage 40 Right Lower Abdomen 40 Urine 500 Uretheral (Casarez) 500 Stool 475 200 Other: Voiding Method Indwelling Catheter # Voids 1 - Exam Physical exam 66-year-old female resting in bed appears in no acute distress Lungs coarse rhonchi throughout diminished bases harsh nonproductive cough sats are documented 98% on 2 L Heart S1-S2 audible and regular Abdomen soft no facial grimacing with palpitation to the abdominal wall nhan in place to surgical site dressing dry WEN drain right lower quadrant scant amount of serous drainage noted in the bulb ostomy left lower quadrant connected to a drainage bag approximately 400 mL's of liquid brown stool noted no nausea no vomiting not distended bowel tones present Extremities a trace pedal edema bilaterally - Labs CBC & Chem 7: 03/19/17 07:24 03/20/17 06:57 Labs: Abnormal Lab Results - Last 24 Hours (Table) 03/19/17 03/19/17 03/20/17 Range/Units 11:40 20:03 06:57 Chloride 117 H (98-107) mmol/L Carbon Dioxide 18 L (22-30) mmol/L Creatinine 2.03 H (0.52-1.04) mg/dL POC Glucose (mg/dL) 118 H 100 H (75-99) mg/dL Calcium 8.2 L (8.4-10.2) mg/dL Total Protein 4.7 L (6.3-8.2) g/dL Albumin 2.2 L (3.5-5.0) g/dL 03/20/17 Range/Units 07:05 Chloride (98-107) mmol/L Carbon Dioxide (22-30) mmol/L Creatinine (0.52-1.04) mg/dL POC Glucose (mg/dL) 100 H (75-99) mg/dL Calcium (8.4-10.2) mg/dL Total Protein (6.3-8.2) g/dL Albumin (3.5-5.0) g/dL Assessment and Plan Plan: Impression Present on admission abdominal pain left lower quadrant onset 2 days prior suspect due to 6 cm peridiverticular abscess anterior to the mid sigmoid colon History of a recent 11/30/2016 exploratory laparotomy lysis of adhesions 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 History of Parkinson's Dementia no behavior disturbance Coronary artery disease with prior myocardial infarction Seizure disorder last seizure in the 70s Chronic anemia Peripheral vascular disease Status post March 13 exploratory laparotomy, lysis of adhesions, small bowel resection, sigmoid colectomy with end colostomy Postop hypokalemia metabolic acidosis secondary to acute kidney injury nonoliguric acute kidney injury secondary to ischemic ATN secondary to sepsis Plan Check stool for C. diff Continue postop surgical care per infectious disease antibiotics recommendations noted DVT and GI prophylaxis Home meds as appropriate Continue recommendations by nephrology Pain control PT OT eval Repeat labs in the morning advance diet Discharge plan and progress subacute rehab when stable The above impression and plan of care have been discussed and directed by signing physician. Danuta Ocampo nurse practitioner acting as scribe for signing physician.
--- NOTE | 2017-03-20 09:01 | P.PN ---
Subjective Progress Note Date: 03/20/17 Principal diagnosis: Complicated diverticulitis of the sigmoid with abscess, Harsh post exploratory laparotomy, sigmoid resection and colostomy Complicated diverticulitis of the sigmoid with abscess. 66-year-old female patient, presented to the hospital because of abdominal pain. Pain was mainly in the left lower quadrant. Patient has significant tenderness involving the left lower quadrant. There is significant tenderness to the left lower quadrant white count was elevated tachycardic heart rate in the 90s and he was sat been started on IV Zosyn. CT of the abdomen and pelvis showed inflammatory changes the pelvis and complicated sigmoid diverticulitis and 6 cm pericolonic abscess. Based on that the patient was taken to the OR and she underwent exp. laparotomy, Lysis of adhesions, Small bowel resection, Sigmoid colectomy with end colostomy and a Partial greater omentectomy. Pos op the patient was kept intubated and the patient was brought in the the ICU for further care and weaning. The patient is on a mechanical ventilator on AC of 14 , TV 450, Fio2 1005 and a PEEP of 5. The patient's ABG showed a component of metablic acidosis and the patient's serum bicarb was down to 15 he had overnight the patient was kept sedated on Diprivan. The patient was given a total of 4 L of IV fluids. 2 L of normal saline was given to her and another liter at midnight. Her current urine output is somewhat between 20-25 mL an hour. Renal function is stable. She is afebrile. She is hemodynamically stable. She is on no pressors. The serum bicarb is still low at 13 and the patient has a component of non-anion gap metabolic acidosis. Most recent blood gases from this morning showed a pH of 7.31 with a pCO2 of 32 and pO2 of 242 and this was done and FiO2 of 50% FiO2 has been down to 30 down to 35%. The patient has an NG tube in place. Output is been minimal. The abdominal wound is showing some erythema in the inferior portion of the vertical midabdominal wound and this may be late to some cellulitis. No active drainage from the wounds. No active drainage from the WEN drain. It drained only 110 mL of serosanguineous material overnight. The patient is on Zosyn and Flagyl. Note the patient was in the hospital in December 2016 and the patient at that time presented with a similar abdominal pain and the CAT scan of the abdomen showed left upper quadrant Jujenal process. Based on all this the patient was taken to the operating room and exploration was done with small bowel was run fluid Treitz and in the left upper quadrant there was a small bowel inflammatory mass. There appeared to be extension of the mass into the mesentery which yet again urned out to be an inflamatory process. The mass appeared to be inflamed. At this point a limited small bowel resection was performed by dividing the small bowel proximally distally to the mass using the linear cutter stapler. A [id number] functional end-to-end staple anastomosis created . Postop, the patient was brought into the intensive care unit intubated on a mechanical ventilator. I successfully extubated the patient and following further care she was discharged home. On 03/15/2017 the patient is being seen in follow-up. I was able to extubate patient yesterday without any major difficulties. She is confused for now. She is able to talk. She is hemodynamically stable on no pressors. She is on IV Zosyn and the wound cultures currently are still pending however there showing gram-negative bacilli. She is afebrile for now. She is producing adequate amount of urine output. She is on IV fluids and she is receiving 100 mL of D5/3 A of bicarb and her serum bicarb level is improved and it's up to 23. She has however developing acute kidney injury. Creatinine is up to 1.9. She is producing approximately 34 40 mL hour of urine output. Colostomy site is functional. She failed a swallow evaluation yesterday. She pulled out her NG tube. No abdominal distention. Surgical wound site is dry clean and intact. The patient is seen again today 03/16/2017 in follow-up on the surgical floor. She is currently awake and alert in no acute distress. She denies any worsening shortness of breath, cough or congestion. Her surgical pain is well controlled. Her dressing is dry and intact. WEN drain remains in place. Ostomy is functioning. Wound culture of the groin was positive for E. coli. She is currently on Zosyn. No leukocytosis. Hemoglobin 9.0. On 03/17/2017 the patient was seen in the surgical floor. She was able to sit up on a chair. Her colostomy site is functional. WEN drains in place. She has no specific complaints. She is awake and alert. Pulse ox is 94% liters of oxygen nasal cannula. Afebrile. Hemodynamically stable. No other significant events over the past 24 hours. General surgeries on the case. The patient was given a dose of Lasix to improve her urine output. She is taking oral intake mainly clear liquids. The patient is seen again today 03/18/2017 in follow-up on the surgical floor. She is currently resting quite comfortably in bed. She is awake and alert in no acute distress. She is working well of the incentive spirometer. She is maintaining good O2 saturations in the upper 90s on room air. She's been afebrile. Hemodynamically stable. No leukocytosis. Hemoglobin 8.9. Creatinine 1.88. Nephrology is on the case as well. On 03/19/2017 patient is reevaluated on surgical floor. She denies any respiratory complaints. She is currently on room air with O2 saturations 98%. No febrile episodes through the night, hemodynamically stable. She is compliant with her incentive spirometer, able to achieve 500-750 today. She's been up in the chair during the day. Denies pain. No leukocytosis, creatinine today is 1.93, nephrology following. Microbiology results have been reviewed, she continues on combination of Unasyn and Flagyl per infectious service recommendations. Discharge planning is working on subacute rehab placement. Lung sounds diffuse wheezing throughout the lung gracia. Coarse scattered rhonchi in bilateral upper lobes. Weak nonproductive cough. Continue working on patient's pulmonary toileting. Colostomy producing liquid green stool, WEN drain on the right side of the abdomen with small amount of serosanguineous drainage. On 03/20/2017 patient seen in follow-up. She denies any specific complaints, afebrile, on 2 L per nasal cannula with sats at 97-98%. Lung sounds are diminished with coarse rhonchi. Loose nonproductive cough, able to achieve 500- 750 on her incentive spirometer today. She was up in a chair for a period of time yesterday. Colostomy output has increased overnight, green liquid stool. Colostomy was connected to a Casarez drainage bag. Stool for C. diff will be sent. Creatinine is up to 2.03 today, carbon dioxide is down to 18, nephrology following. WEN drain output is 65 mL over the last 24 hours. Continues on combination of Unasyn and Flagyl for the ruptured sigmoid diverticulitis. Patient is tolerating soft foods diet. Objective - Vital Signs Vital signs: Vital Signs Temp 98.0 F 03/20/17 07:48 Pulse 89 03/20/17 07:48 Resp 18 03/20/17 07:48 BP 175/77 03/20/17 07:48 Pulse Ox 98 03/20/17 07:48 Intake & Output 03/19/17 03/20/17 03/20/17 18:59 06:59 18:59 Intake Total 560 Output Total 975 240 Balance -975 320 Intake: Intake, IV Titration 560 Amount Sodium Chloride 0.9% 1, 560 000 ml @ 70 mls/hr IV . [id number] [facility] Rx#:[id number] Output: Drainage 40 Right Lower Abdomen 40 Urine 500 Uretheral (Casarez) 500 Stool 475 200 Other: Voiding Method Indwelling Catheter # Voids 1 - Exam GENERAL EXAM: Alert, active, elderly female comfortable in no apparent distress. HEAD: Normocephalic. EYES: Normal reaction of pupils, equal size. NOSE: Clear with pink turbinates. THROAT: No erythema or exudates. NECK: No masses, no JVD. CHEST: No chest wall deformity. LUNGS: Equal air entry with diffuse wheezes, coarse rhonchi. CVS: S1 and S2 normal with no audible mumurs, regular rhythm. ABDOMEN: No hepatosplenomegaly, normal bowel sounds, no guarding or rigidity. Mid abdominal incision clean dry and intact, with intact nhan. Colostomy on the left with green liquid output, WEN drain on the right side of the abdomen with serosanguineous drainage SPINE: No scoliosis or deformity SKIN: No rashes CENTRAL NERVOUS SYSTEM: No focal deficits, tone is normal in all 4 extremities. - Labs CBC & Chem 7: 03/19/17 07:24 03/20/17 06:57 Labs: Abnormal Lab Results - Last 24 Hours (Table) 03/19/17 03/19/17 03/20/17 Range/Units 11:40 20:03 06:57 Chloride 117 H (98-107) mmol/L Carbon Dioxide 18 L (22-30) mmol/L Creatinine 2.03 H (0.52-1.04) mg/dL POC Glucose (mg/dL) 118 H 100 H (75-99) mg/dL Calcium 8.2 L (8.4-10.2) mg/dL Total Protein 4.7 L (6.3-8.2) g/dL Albumin 2.2 L (3.5-5.0) g/dL 03/20/17 Range/Units 07:05 Chloride (98-107) mmol/L Carbon Dioxide (22-30) mmol/L Creatinine (0.52-1.04) mg/dL POC Glucose (mg/dL) 100 H (75-99) mg/dL Calcium (8.4-10.2) mg/dL Total Protein (6.3-8.2) g/dL Albumin (3.5-5.0) g/dL Assessment and Plan Plan: Assessment and Plan Plan: Assessment 1 exploratory laparotomy, sigmoid resection, and colostomy, lysis of adhesions and partial omentectomy. Postop day 6. The patient was found to have a complicated diverticulitis of the sigmoid with intra-abdominal abscess formation. Currently on a combination of Unasyn and Flagyl and the wound cultures are showing E. coli.. Hemodynamically stable. The colostomy site is functional and viable. WEN drain remains in place. No abdominal distention. NG tube has been removed. 2 small bowel resection in December 2016 which turned out to be an inflammatory mass rather than a true malignancy. The patient recovered from that without any major difficulties. 3 postoperative ventilator dependence. The patient's metabolic acidosis was corrected and the patient was extubated without any major difficulties. 4 dementia, 5 diabetes mellitus, maintained on oral hypoglycemics and the patient will be placed on this a scale coverage for now 6 hyperlipidemia 7 coronary artery disease with previous myocardial infarction 8 seizure disorder many years back and the patient has not been on seizure medication. Her last seizure was back in the 70s., 9 sleep apnea, obstructive sleep apnea with suboptimal compliance to CPAP therapy 10 recent fall with a nasal fracture 11 chronic anemia 12 peripheral vascular disease 13 diverticulosis, with previous history of bowel resection, colostomy and subsequent reversal. 14 cardiac murmur 15 remote history of DVT 16 bipolar disorder 17 chronic bronchial asthma 18 non-anion gap metabolic acidosis, recovered with bicarb infusion. Plan: The patient was seen and evaluated by Dr. Silver. She is stable from the pulmonary standpoint. She needs increased encouragement regarding the use of the incentive spirometer and cough and deep breathing exercises. Will continue with bronchodilators. Diet advanced per surgical services. Ostomy has increased liquid green output. This will be tested for C. diff. Overall she denies any distress but remains very weak. Monitor for signs of worsening renal failure related to large volume output from colostomy. We'll continue to closely follow with you. Discharge planning is working on rehab placement post discharge. I performed a history & physical examination of the patient and discussed their management with my nurse practitioner, Annelise Du. I reviewed the nurse practitioner's note and agree with the documented findings and plan of care. Lung Sounds diminished air entry bilaterally, coarse scattered rhonchi. Continue with pulmonary toileting, encouraged to use of incentive spirometer.
[2017-03-20] MEDS: HEPARIN SODIUM,PORCINE 5,000 UNIT/ML 1 ML VIAL SQ SCH ×2 (09:26→17:17)
[2017-03-20] MEDS: DONEPEZIL 10 MG TAB PO SCH (09:27)
[2017-03-20] MEDS: MEMANTINE 5 MG TAB PO SCH ×2 (09:27→20:56)
[2017-03-20] MEDS: MONTELUKAST 10 MG TAB PO SCH (09:27)
[2017-03-20] MEDS: LORATADINE 10 MG TAB PO SCH (09:27)
[2017-03-20] MEDS: FAMOTIDINE 20 MG TAB PO SCH (09:27)
[2017-03-20] MEDS: metroNIDAZOLE 500 MG TAB PO SCH ×3 (09:27→21:43)
[2017-03-20] MEDS: SERTRALINE 50 MG TAB PO SCH (09:28)
[2017-03-20 11:38] LABS: Glucose,Whole Blood 98 mg/dL (75-99)
--- NOTE | 2017-03-20 11:56 | P.PN ---
Subjective Patient is seen in follow-up for acute kidney injury. Her baseline creatinine is 1 and is now in the range of 1.8-1.9. He is up to 2.03 today. Patient presented with abdominal pain and was noted to have an abscess. She underwent exploratory laparotomy with lysis of adhesions this admission. Cultures have been positive for E. coli. She is maintained on antibiotics per infectious disease recommendations. Her diet has gradually been advanced to soft and is tolerating it well. She is nonoliguric. No vomiting. Casarez catheter was discontinued yesterday. Vital signs are stable. General: The patient appeared well nourished and normally developed. HEENT: Head exam is unremarkable. Neck is without jugular venous distension. LUNGS: Lungs are clear to auscultation and percussion. Breath sounds decreased. HEART: Rate and Rhythm are regular. First and second heart sounds normal. No murmurs, rubs or gallops. ABDOMEN: Abdominal exam reveals normal bowel sounds. Generalized tenderness. Bowel sounds present. EXTREMITITES: No clubbing, cyanosis, or edema. Objective - Vital Signs Vital signs: Vital Signs Temp 98.0 F 03/20/17 07:48 Pulse 87 03/20/17 09:47 Resp 18 03/20/17 09:47 BP 175/77 03/20/17 07:48 Pulse Ox 98 03/20/17 07:48 Intake & Output 03/19/17 03/20/17 03/20/17 18:59 06:59 18:59 Intake Total 560 Output Total 975 240 Balance -975 320 Intake: Intake, IV Titration 560 Amount Sodium Chloride 0.9% 1, 560 000 ml @ 70 mls/hr IV . [id number] [facility] Rx#:[id number] Output: Drainage 40 Right Lower Abdomen 40 Urine 500 Uretheral (Casarez) 500 Stool 475 200 Other: Voiding Method Indwelling Catheter Indwelling Catheter # Voids 1 - Labs CBC & Chem 7: 03/19/17 07:24 03/20/17 06:57 Labs: Abnormal Lab Results - Last 24 Hours (Table) 03/19/17 03/20/17 03/20/17 Range/Units 20:03 06:57 07:05 Chloride 117 H (98-107) mmol/L Carbon Dioxide 18 L (22-30) mmol/L Creatinine 2.03 H (0.52-1.04) mg/dL POC Glucose (mg/dL) 100 H 100 H (75-99) mg/dL Calcium 8.2 L (8.4-10.2) mg/dL Total Protein 4.7 L (6.3-8.2) g/dL Albumin 2.2 L (3.5-5.0) g/dL Assessment and Plan Plan: Assessment: #1. Nonoliguric acute kidney injury secondary to ischemic ATN secondary to sepsis. Baseline creatinine is 1 peaked at 2.03 this admission. It started to trend down but is now up again to 2.03 today. Urinalysis is quite benign. She also received IV contrast dye on March 11. No evidence of hydronephrosis on CAT scan. #2.. Diverticular abscess status post exploratory laparotomy, lysis of adhesions, small bowel resection, and sigmoid colectomy with end colostomy. #3. Hypokalemia secondary to poor oral intake. Magnesium replete. Improved. #4. Metabolic acidosis secondary to acute kidney injury and IV fluids. Plan: Decreased rate of normal saline to 50 mL an hour. Add oral sodium bicarbonate 650 mg twice daily. Monitor accurate I's and O's. Avoid nephrotoxic agents and hypotensive episodes. Antibiotics per infectious disease recommendations. Repeat electrolytes in the morning. Repeat urinalysis. Check urine eosinophils. Check chest x-ray. Potential subacute rehab upon discharge.
[2017-03-20] MEDS: SODIUM BICARBONATE TAB 650 MG TAB PO SCH ×2 (13:06→20:55)
--- NOTE | 2017-03-20 14:21 | P.PN ---
Subjective 03/12/2017 This is a 66 year old female who presented to the ER with a chief complaint of abdominal pain. The patient was brought in by her sister, Reny, who is also her legal guardian. Her abdominal pain has been present for approximately 2 days. In the emergency room, a CT scan of the abdomen and pelvis was completed which revealed inflammatory changes in the pelvis suggestive of a 6 cm peridiverticular abscess anterior to the mid sigmoid colon. A chest x-ray was completed which was unremarkable. The patient has underwent prior abdominal surgeries. 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 The patient was admitted to the hospital under the care of Dr. Leal. A consult was placed to Dr. Golden, the patient's PCP, for medical management. Consults were also placed to interventional radiology for possible drainage of the abscess. The patient was seen and examined this morning at the bedside with Dr. Golden. There is no family present at this time. The patient is very lethargic this morning. She would not open her eyes. She does have a history of dementia. However she would answer questions and nod appropriately. She denies chest pain or shortness of breath. Bowel sounds are present. She did have severe pain when her right lower quadrant was palpated, however she denied pain upon palpation of left quadrant. However, it is noted that the patient had left quadrant pain when palpated per surgery's note. Her white count was elevated on admission at 17.0. It is 13.9 this morning. She is receiving zosyn. 03/13/2017 Patient seen and examined this morning. She appears more awake this morning. Able to open eyes. Continues to complain of right side abdominal pain but she states it is improved since yesterday. She is NPO for surgery today with Dr. Leal. Procedure planned is drainage of pelvic abscess, sigmoid colectomy, and colostomy. She was hypoglycemic last night with a BS of 57 and 61. This morning she is 101. Dr. Golden started the patient on D5.45 @ 125cc/hr. Her temperatute this morning is 99.9F. Her Tmax over the last [address] Dey, infectious disease, is also on consult. The patient remains on Vanco , Zosyn, and Flagyl. 03/14/2017 Patient seen and examined this morning by Dr. Golden. Patient underwent an exploratory laparotomy, lysis of adhesions, small bowel resection, and sigmoid colectomy with end colostomy. The patient remained on the ventilator after surgery and was transferred to the ICU. The patients urine output was low and she was bolused with normal saline. Her vital signs remained stable. her white count this morning is 12.6 and hemoglobin is 10.6. WEN drain is present. Her surgical incision site does have some erythema present and resembles a cellulitis. She remains on zosyn and flagyl. The patient underwent a CPAP trial this morning and was successfully extubated. 03/15/2017 Patient was seen and examined this morning by Dr. Golden. Patient is POD #2 exploratory laparotomy, lysis of adhesions, small bowel resection, sigmoid colectomy with end colostomy. The patient was extubated yesterday. She is on room air and maintaining oxygen saturations greater than 92%. She is confused. She pulled out her NG tube yesterday. Her blood culture from 03/11/2017 was positive for staphylococcus epidermidis, which is likely contamination. Her repeat cultures are negative at the 48 hour luis alberto. Her wound culture is still pending but preliminary results show gram negative bacilli. She remains on zosyn per infectious disease. WEN drain remains intact with serous drainage. Colostomy stoma is pink and moist. No stool noted in the colostomy at this time. Her potassium is low at 3.1 this morning and is being replaced per protocol. Her creatinine this morning is 1.9. Yesterday it was 1.2. It was 0.9 on admission. She is receiving D5 with 3 amps of bicarb at 100cc/hr. 03/16/[address] Henson (covering for Dr. Golden) 03/17/[address] Henson (covering for Dr. Golden) 03/18/2017 The patient was seen and examined this morning by Dr. Golden. Patient is POD #5 exploratory laparotomy, lysis of adhesions, small bowel resection, sigmoid colectomy with end colostomy. She is currently sitting up in the chair resting. Diet was advanced today to full liquid per surgical service. Her colostomy has brown loose output. Nephrology was consulted over the weekend for acute kidney injury. Her creatinine was 1.96 yesterday. Today it is 1.88. It peaked at 2.03. WEN drain remains intact. Dressing to abdomen is clean dry and intact. Elaine remains intact per nephrology recommendations. Potassium is low this morning at 3.4. 03/19/2017 Patient seen and examined this morning on rounds with Dr. Golden. Patient is POD #6 exploratory laparotomy, lysis of adhesions, small bowel resection, sigmoid colectomy with end colostomy. She is laying in the bed. She states her pain is tolerable. She was up in the chair yesterday. Her potassium was low yesterday at 3.4 and was replaced. Repeat this morning is 3.8. Hemoglobin is stable at 9.5. White count is 7.3. Creatinine is slightly worse today at 1.93 (1.88 yesterday). Nephrology is consulted. Elaine catheter remains intact per nephrology request. Colostomy has brown liquid output. WEN drain intact with minimal serosanguinous fluid. Diet has been advanced to soft foods. 03/20/2017 Patient is POD #7 exploratory laparotomy, lysis of adhesions, small bowel resection, sigmoid colectomy with end colostomy. Her diet has been advanced to soft foods per surgery and she is tolerating without nausea or vomiting. Her colostomy has had a significant increase in drainage and was changed to a elaine drainage bag. C Diff was ordered by surgery. Nephrology is consulted and is following for CKD. PT and OT is working with the patient. Goal is to DC to [facility]. Objective - Vital Signs Vital signs: Vital Signs Temp 98.0 F 03/20/17 07:48 Pulse 80 03/20/17 12:08 Resp 18 03/20/17 09:47 BP 175/77 03/20/17 07:48 Pulse Ox 98 03/20/17 07:48 Intake & Output 03/19/17 03/20/17 03/20/17 18:59 06:59 18:59 Intake Total 560 Output Total 975 240 800 Balance -975 320 -800 Intake: Intake, IV Titration 560 Amount Sodium Chloride 0.9% 1, 560 000 ml @ 70 mls/hr IV . [id number] Rx#:[id number] Output: Drainage 40 Right Lower Abdomen 40 Urine 500 Uretheral (Elaine) 500 Stool 475 200 800 Other: Voiding Method Indwelling Catheter Indwelling Catheter # Voids 1 - Exam GENERAL: awake and alert. pleasantly confused. RESPIRATORY: Lungs coarse throughout. No use of accessory muscles. Patient maintaining oxygen saturation greater than 92%. CARDIOVASCULAR: S1 and S2 noted. No murmurs auscultated. No JVD noted. EXTREMITIES: No edema noted. Palpable pedal pulses +2. ABDOMEN: No distention noted. Abdomen soft and round. WEN drain in place. Dressing to abdominal surgical site noted. Colostomy with liquid brown stool attached to high output drainage bag. - Labs CBC & Chem 7: 03/19/17 07:24 03/20/17 06:57 Labs: Abnormal Lab Results - Last 24 Hours (Table) 03/19/17 03/20/17 03/20/17 Range/Units 20:03 06:57 07:05 Chloride 117 H (98-107) mmol/L Carbon Dioxide 18 L (22-30) mmol/L Creatinine 2.03 H (0.52-1.04) mg/dL POC Glucose (mg/dL) 100 H 100 H (75-99) mg/dL Calcium 8.2 L (8.4-10.2) mg/dL Total Protein 4.7 L (6.3-8.2) g/dL Albumin 2.2 L (3.5-5.0) g/dL Assessment and Plan Plan: ASSESSMENT: -Abdominal pain, present on admission, likely secondary to 6 cm peridiverticular abscess anterior to the mid sigmoid colon, resolving -s/p exploratory laparotomy, lysis of adhesions, and bowel resection with colostomy on March 13, 2017, POD #7. -History of recent exploratory laparotomy with lysis of adhesions and 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 -History of dementia -History of coronary artery disease with myocardial infarction -Diabetes mellitus, type II -Hypokalemia, resolved -Acute kidney injury secondary to ischemic ATN, creatinine 0.9 on admission, 2.03 this morning -Sepsis, present on admission, related to perideverticular abscess PLAN: -Continue post operative care per Dr Leal -Infectious disease on consult -Antibiotics per infectious disease recommendations -Nephrology on consult for STEVEN. -Monitor labs, monitor kidney function -Pain Control -GI prophylaxis: Pepcid 20mg IV daily -DVT prophylaxis: Heparin 5000 units subcu every 8 hours -Monitor vital signs and address as appropriate -Monitor capillary blood glucose -Humalog sliding scale coverage -PT/OT -Discharge planning: Social work and case management working on subacute rehab. patient requesting [facility]. -Patient is stable for discharge from a medical standpoint when okay with surgery The above impression and plan of care have been discussed and directed by signing physician. Torie Willett, nurse practitioner, acting as scribe for signing physician.
[2017-03-20 14:26] LABS: Appearance,Urine Clear (Clear); Bilirubin,Urine Negative (Negative); Glucose,Urine (UA) Negative (Negative); Ketones,Urine Trace (Negative); Leukocyte Esterase,Urine Negative (Negative); Nitrite,Urine Negative (Negative); PH, Urine 5.5 (5.0-8.0); Protein,Urine Negative (Negative); Specific Gravity,Urine 1.007 (1.001-1.035); UA Billing (MACRO vs. MICRO) CHEM; Urobilinogen,Urine <2.0 mg/dL (<2.0)
--- NOTE | 2017-03-20 16:18 | XR ---
EXAMINATION TYPE: XR chest 2V DATE OF EXAM: 03/20/2017 COMPARISON: Prior chest x-ray 03/17/2017 HISTORY: Shortness of breath TECHNIQUE: Frontal and lateral views of the chest are obtained. FINDINGS: Patient is less rotated. Lung volumes are low. Heart size appears accentuated possibly due to technique. No evident pneumothorax, blunting of the posterior costophrenic angle may represent a small pleural effusion. No definite airspace disease. IMPRESSION: Rotated expiratory exam. Difficult to exclude a small effusion, basilar atelectasis. Fol low-up as indicated.
[2017-03-20 16:48] LABS: Glucose,Whole Blood 147 mg/dL (75-99)
[2017-03-20 20:22] LABS: Glucose,Whole Blood 114 mg/dL (75-99)
[2017-03-20] MEDS: MIRTAZAPINE 15 MG TAB PO SCH (20:55)
[2017-03-20] MEDS: risperiDONE 1 MG TAB PO SCH (20:56)
[2017-03-20] MEDS: PANTOPRAZOLE 40 MG TABLET PO SCH (20:56)
--- NOTE | 2017-03-20 23:04 | PN ---
PROGRESS NOTE DATE OF SERVICE: 03/20/2017. REASON FOR FOLLOWUP: Abdominal abscess from ruptured diverticulitis. INTERVAL HISTORY: The patient is afebrile. She is breathing comfortably. The patient denies any significant chest pain. No shortness of breath or cough. No abdominal pain. No diarrhea. EXAMINATION: Blood blood pressure is 175/77 with a pulse of 89, temperature 98. She is 98% 2L nasal cannula. GENERAL DESCRIPTION: An elderly female lying in bed in no distress. RESPIRATORY SYSTEM: Unlabored breathing. Clear to auscultation anteriorly. HEART: S1, S2. Regular rate and rhythm. ABDOMEN: Soft. No tenderness. LABS: UA is negative. Stool for C. diff. examination negative. DIAGNOSTIC IMPRESSION AND PLAN: Patient with an Escherichia coli and anaerobic gram-negative abdominal abscess from a ruptured sigmoid diverticulitis, status post diverting colostomy, drainage of the abscess. She is currently on Unasyn and Flagyl. Will continue with antibiotic therapy with p.o. Ceftin and Flagyl for another 10 days. Continue with supportive care. MMODL / IJN: [id number] /
[2017-03-21] MEDS: HEPARIN SODIUM,PORCINE 5,000 UNIT/ML 1 ML VIAL SQ SCH ×4 (00:02→23:56)
[2017-03-21] MEDS: AMPICILLIN-SULBACTAM 3 GM in SODIUM CHLORIDE 0.9% 100 ML IVPB SCH ×3 (05:05→19:00)
[2017-03-21] MEDS: HYDROcodone/APAP 5-325MG 1 EACH TAB PO PRN ×2 (05:07→14:50)
[2017-03-21] MEDS: SODIUM CHLORIDE 0.9% 1,000 ML IV SCH (06:19)
[2017-03-21 07:08] LABS: Glucose,Whole Blood 106 mg/dL (75-99)
[2017-03-21 07:19] LABS: Basophils % (A) 0 %; CH 27.5; CHCM 30.6; Eosinophils # (A) 0.3 k/uL (0-0.7); Eosinophils % (A) 2 %; HCT 29.6 % (34.0-46.0); HDW 2.34; HGB 9.1 gm/dL (11.4-16.0); Hypochromasia Slight; Luc # (Auto) 0.11; Luc % (Auto) 1; Lymphocytes # (A) 1.2 k/uL (1.0-4.8); Lymphocytes % (A) 11 %; MCH 27.7 pg (25.0-35.0); MCHC 30.7 g/dL (31.0-37.0); MCV 90.1 fL (80.0-100.0); Mean Platelet Volume 7.6; Monocytes # (A) 0.5 k/uL (0-1.0); Monocytes % (A) 5 %; Neutrophils # (A) 8.9 k/uL (1.3-7.7); Neutrophils % (A) 81 %; RBC 3.28 m/uL (3.80-5.40); RDW 13.8 % (11.5-15.5); WBC 10.9 k/uL (3.8-10.6); WBC (Perox) 11.05
[2017-03-21 07:35] LABS: Potassium 3.4 mmol/L (3.5-5.1); Total Bilirubin 0.1 mg/dL (0.2-1.3); Total Protein 4.6 g/dL (6.3-8.2)
[2017-03-21] MEDS: ALBUTEROL NEBULIZED 2.5 MG/3 ML INHALATION SCH ×4 (08:09→20:31)
[2017-03-21] MEDS: INSULIN LISPRO (humaLOG) 300 UNIT/3 ML VIAL SQ SCH ×4 (08:40→20:49)
[2017-03-21] MEDS: SERTRALINE 50 MG TAB PO SCH (08:45)
[2017-03-21] MEDS: MEMANTINE 5 MG TAB PO SCH ×2 (08:45→20:52)
[2017-03-21] MEDS: DONEPEZIL 10 MG TAB PO SCH (08:45)
[2017-03-21] MEDS: metroNIDAZOLE 500 MG TAB PO SCH ×3 (08:45→20:52)
[2017-03-21] MEDS: MONTELUKAST 10 MG TAB PO SCH (08:45)
[2017-03-21] MEDS: FAMOTIDINE 20 MG TAB PO SCH (08:45)
[2017-03-21] MEDS: LORATADINE 10 MG TAB PO SCH (08:45)
[2017-03-21] MEDS: SODIUM BICARBONATE TAB 650 MG TAB PO SCH ×2 (08:46→20:52)
--- NOTE | 2017-03-21 09:10 | P.PN ---
Subjective Progress Note Date: 03/21/17 Principal diagnosis: Complicated diverticulitis of the sigmoid with abscess, Harsh post exploratory laparotomy, sigmoid resection and colostomy Complicated diverticulitis of the sigmoid with abscess. 66-year-old female patient, presented to the hospital because of abdominal pain. Pain was mainly in the left lower quadrant. Patient has significant tenderness involving the left lower quadrant. There is significant tenderness to the left lower quadrant white count was elevated tachycardic heart rate in the 90s and he was sat been started on IV Zosyn. CT of the abdomen and pelvis showed inflammatory changes the pelvis and complicated sigmoid diverticulitis and 6 cm pericolonic abscess. Based on that the patient was taken to the OR and she underwent exp. laparotomy, Lysis of adhesions, Small bowel resection, Sigmoid colectomy with end colostomy and a Partial greater omentectomy. Pos op the patient was kept intubated and the patient was brought in the the ICU for further care and weaning. The patient is on a mechanical ventilator on AC of 14 , TV 450, Fio2 1005 and a PEEP of 5. The patient's ABG showed a component of metablic acidosis and the patient's serum bicarb was down to 15 he had overnight the patient was kept sedated on Diprivan. The patient was given a total of 4 L of IV fluids. 2 L of normal saline was given to her and another liter at midnight. Her current urine output is somewhat between 20-25 mL an hour. Renal function is stable. She is afebrile. She is hemodynamically stable. She is on no pressors. The serum bicarb is still low at 13 and the patient has a component of non-anion gap metabolic acidosis. Most recent blood gases from this morning showed a pH of 7.31 with a pCO2 of 32 and pO2 of 242 and this was done and FiO2 of 50% FiO2 has been down to 30 down to 35%. The patient has an NG tube in place. Output is been minimal. The abdominal wound is showing some erythema in the inferior portion of the vertical midabdominal wound and this may be late to some cellulitis. No active drainage from the wounds. No active drainage from the WEN drain. It drained only 110 mL of serosanguineous material overnight. The patient is on Zosyn and Flagyl. Note the patient was in the hospital in December 2016 and the patient at that time presented with a similar abdominal pain and the CAT scan of the abdomen showed left upper quadrant Jujenal process. Based on all this the patient was taken to the operating room and exploration was done with small bowel was run fluid Treitz and in the left upper quadrant there was a small bowel inflammatory mass. There appeared to be extension of the mass into the mesentery which yet again urned out to be an inflamatory process. The mass appeared to be inflamed. At this point a limited small bowel resection was performed by dividing the small bowel proximally distally to the mass using the linear cutter stapler. A [id number] functional end-to-end staple anastomosis created . Postop, the patient was brought into the intensive care unit intubated on a mechanical ventilator. I successfully extubated the patient and following further care she was discharged home. On 03/15/2017 the patient is being seen in follow-up. I was able to extubate patient yesterday without any major difficulties. She is confused for now. She is able to talk. She is hemodynamically stable on no pressors. She is on IV Zosyn and the wound cultures currently are still pending however there showing gram-negative bacilli. She is afebrile for now. She is producing adequate amount of urine output. She is on IV fluids and she is receiving 100 mL of D5/3 A of bicarb and her serum bicarb level is improved and it's up to 23. She has however developing acute kidney injury. Creatinine is up to 1.9. She is producing approximately 34 40 mL hour of urine output. Colostomy site is functional. She failed a swallow evaluation yesterday. She pulled out her NG tube. No abdominal distention. Surgical wound site is dry clean and intact. The patient is seen again today 03/16/2017 in follow-up on the surgical floor. She is currently awake and alert in no acute distress. She denies any worsening shortness of breath, cough or congestion. Her surgical pain is well controlled. Her dressing is dry and intact. WEN drain remains in place. Ostomy is functioning. Wound culture of the groin was positive for E. coli. She is currently on Zosyn. No leukocytosis. Hemoglobin 9.0. On 03/17/2017 the patient was seen in the surgical floor. She was able to sit up on a chair. Her colostomy site is functional. WEN drains in place. She has no specific complaints. She is awake and alert. Pulse ox is 94% liters of oxygen nasal cannula. Afebrile. Hemodynamically stable. No other significant events over the past 24 hours. General surgeries on the case. The patient was given a dose of Lasix to improve her urine output. She is taking oral intake mainly clear liquids. The patient is seen again today 03/18/2017 in follow-up on the surgical floor. She is currently resting quite comfortably in bed. She is awake and alert in no acute distress. She is working well of the incentive spirometer. She is maintaining good O2 saturations in the upper 90s on room air. She's been afebrile. Hemodynamically stable. No leukocytosis. Hemoglobin 8.9. Creatinine 1.88. Nephrology is on the case as well. On 03/19/2017 patient is reevaluated on surgical floor. She denies any respiratory complaints. She is currently on room air with O2 saturations 98%. No febrile episodes through the night, hemodynamically stable. She is compliant with her incentive spirometer, able to achieve 500-750 today. She's been up in the chair during the day. Denies pain. No leukocytosis, creatinine today is 1.93, nephrology following. Microbiology results have been reviewed, she continues on combination of Unasyn and Flagyl per infectious service recommendations. Discharge planning is working on subacute rehab placement. Lung sounds diffuse wheezing throughout the lung gracia. Coarse scattered rhonchi in bilateral upper lobes. Weak nonproductive cough. Continue working on patient's pulmonary toileting. Colostomy producing liquid green stool, WEN drain on the right side of the abdomen with small amount of serosanguineous drainage. On 03/20/2017 patient seen in follow-up. She denies any specific complaints, afebrile, on 2 L per nasal cannula with sats at 97-98%. Lung sounds are diminished with coarse rhonchi. Loose nonproductive cough, able to achieve 500- 750 on her incentive spirometer today. She was up in a chair for a period of time yesterday. Colostomy output has increased overnight, green liquid stool. Colostomy was connected to a Casarez drainage bag. Stool for C. diff will be sent. Creatinine is up to 2.03 today, carbon dioxide is down to 18, nephrology following. WEN drain output is 65 mL over the last 24 hours. Continues on combination of Unasyn and Flagyl for the ruptured sigmoid diverticulitis. Patient is tolerating soft foods diet. On 03/21/2017 patient is anticipated to be transferred to a subacute rehab today. She remained stable from the pulmonary standpoint. Febrile episodes, lung sounds with coarse scattered rhonchi, loose nonproductive cough. Incentive spirometer 500-750 today, patient needs encouragement with it. Colostomy output seems to have decreased, small amount of small brown output from it today. She is tolerating soft diet, no nausea no vomiting. She is clear for discharge from pulmonary standpoint. We'll follow up as needed Objective - Vital Signs Vital signs: Vital Signs Temp 98.0 F 03/21/17 07:14 Pulse 84 03/21/17 08:20 Resp 20 03/21/17 07:14 BP 138/75 03/21/17 07:14 Pulse Ox 99 03/21/17 02:41 Intake & Output 03/20/17 03/21/17 03/21/17 18:59 06:59 18:59 Intake Total 400 600 Output Total 1020 850 Balance -620 -250 Intake: IV 400 Sodium Chloride 0.9% 1, 400 000 ml @ 50 mls/hr IV . [facility] Rx#:[id number] Intake, IV Titration 400 Amount Sodium Chloride 0.9% 1, 400 000 ml @ 50 mls/hr IV . [facility] Rx#:[id number] Oral 200 Output: Drainage 20 50 Right Lower Abdomen 20 50 Stool 1000 800 Other: Voiding Method Indwelling Catheter # Voids 1 - Exam GENERAL EXAM: Alert, active, elderly female comfortable in no apparent distress. HEAD: Normocephalic. EYES: Normal reaction of pupils, equal size. NOSE: Clear with pink turbinates. THROAT: No erythema or exudates. NECK: No masses, no JVD. CHEST: No chest wall deformity. LUNGS: Equal air entry with diffuse wheezes, coarse rhonchi. CVS: S1 and S2 normal with no audible mumurs, regular rhythm. ABDOMEN: No hepatosplenomegaly, normal bowel sounds, no guarding or rigidity. Mid abdominal incision clean dry and intact, with intact nhan. Colostomy on the left with green liquid output, WEN drain on the right side of the abdomen with serosanguineous drainage SPINE: No scoliosis or deformity SKIN: No rashes CENTRAL NERVOUS SYSTEM: No focal deficits, tone is normal in all 4 extremities. - Labs CBC & Chem 7: 03/21/17 06:24 03/21/17 06:24 Labs: Abnormal Lab Results - Last 24 Hours (Table) 03/20/17 03/20/17 03/20/17 Range/Units 14:00 16:46 20:06 WBC (3.8-10.6) k/uL RBC (3.80-5.40) m/uL Hgb (11.4-16.0) gm/dL Hct (34.0-46.0) % MCHC (31.0-37.0) g/dL Neutrophils # (1.3-7.7) k/uL Potassium (3.5-5.1) mmol/L Chloride (98-107) mmol/L Carbon Dioxide (22-30) mmol/L Creatinine (0.52-1.04) mg/dL Glucose (74-99) mg/dL POC Glucose (mg/dL) 147 H 114 H (75-99) mg/dL Calcium (8.4-10.2) mg/dL Total Bilirubin (0.2-1.3) mg/dL Total Protein (6.3-8.2) g/dL Albumin (3.5-5.0) g/dL Urine Ketones Trace H (Negative) 03/21/17 03/21/17 03/21/17 Range/Units 06:24 06:24 07:07 WBC 10.9 H (3.8-10.6) k/uL RBC 3.28 L (3.80-5.40) m/uL Hgb 9.1 L (11.4-16.0) gm/dL Hct 29.6 L (34.0-46.0) % MCHC 30.7 L (31.0-37.0) g/dL Neutrophils # 8.9 H (1.3-7.7) k/uL Potassium 3.4 L (3.5-5.1) mmol/L Chloride 118 H (98-107) mmol/L Carbon Dioxide 18 L (22-30) mmol/L Creatinine 1.81 H (0.52-1.04) mg/dL Glucose 112 H (74-99) mg/dL POC Glucose (mg/dL) 106 H (75-99) mg/dL Calcium 8.0 L (8.4-10.2) mg/dL Total Bilirubin 0.1 L (0.2-1.3) mg/dL Total Protein 4.6 L (6.3-8.2) g/dL Albumin 2.1 L (3.5-5.0) g/dL Urine Ketones (Negative) Assessment and Plan Plan: Assessment and Plan Plan: Assessment 1 exploratory laparotomy, sigmoid resection, and colostomy, lysis of adhesions and partial omentectomy. Postop day 6. The patient was found to have a complicated diverticulitis of the sigmoid with intra-abdominal abscess formation. Currently on a combination of Unasyn and Flagyl and the wound cultures are showing E. coli.. Hemodynamically stable. The colostomy site is functional and viable. WEN drain remains in place. No abdominal distention. NG tube has been removed. 2 small bowel resection in December 2016 which turned out to be an inflammatory mass rather than a true malignancy. The patient recovered from that without any major difficulties. 3 postoperative ventilator dependence. The patient's metabolic acidosis was corrected and the patient was extubated without any major difficulties. 4 dementia, 5 diabetes mellitus, maintained on oral hypoglycemics and the patient will be placed on this a scale coverage for now 6 hyperlipidemia 7 coronary artery disease with previous myocardial infarction 8 seizure disorder many years back and the patient has not been on seizure medication. Her last seizure was back in the 70s., 9 sleep apnea, obstructive sleep apnea with suboptimal compliance to CPAP therapy 10 recent fall with a nasal fracture 11 chronic anemia 12 peripheral vascular disease 13 diverticulosis, with previous history of bowel resection, colostomy and subsequent reversal. 14 cardiac murmur 15 remote history of DVT 16 bipolar disorder 17 chronic bronchial asthma 18 non-anion gap metabolic acidosis, recovered with bicarb infusion. Plan: The patient was seen and evaluated by Dr. Silver. She is stable from the pulmonary standpoint. She needs increased encouragement regarding the use of the incentive spirometer and cough and deep breathing exercises. Will continue with bronchodilators. Diet advanced per surgical services. Ostomy output has decreased, stool was negative for C. diff. Overall she denies any distress, she started to ambulate in the hallway with therapy and tolerating it well. Renal function is improved, with creatinine at 1.81 this morning . We will continue with this patient on as needed basis. Discharge planning is working on rehab placement post discharge tomorrow I performed a history & physical examination of the patient and discussed their management with my nurse practitioner, Annelise Du. I reviewed the nurse practitioner's note and agree with the documented findings and plan of care. Lung Sounds diminished air entry bilaterally, coarse scattered rhonchi. Continue with pulmonary toileting, encouraged to use of incentive spirometer.
[2017-03-21] MEDS ORDERED: Potassium Replacement Protocol 1 EACH MISC MISCELLANE PRN (09:52)
[2017-03-21] MEDS ORDERED: POTASSIUM CHLORIDE ER 20 MEQ TAB.ER PO SCH (10:00)
--- NOTE | 2017-03-21 10:35 | P.PN ---
Subjective 03/12/2017 This is a 66 year old female who presented to the ER with a chief complaint of abdominal pain. The patient was brought in by her sister, Reny, who is also her legal guardian. Her abdominal pain has been present for approximately 2 days. In the emergency room, a CT scan of the abdomen and pelvis was completed which revealed inflammatory changes in the pelvis suggestive of a 6 cm peridiverticular abscess anterior to the mid sigmoid colon. A chest x-ray was completed which was unremarkable. The patient has underwent prior abdominal surgeries. 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 The patient was admitted to the hospital under the care of Dr. Leal. A consult was placed to Dr. Golden, the patient's PCP, for medical management. Consults were also placed to interventional radiology for possible drainage of the abscess. The patient was seen and examined this morning at the bedside with Dr. Golden. There is no family present at this time. The patient is very lethargic this morning. She would not open her eyes. She does have a history of dementia. However she would answer questions and nod appropriately. She denies chest pain or shortness of breath. Bowel sounds are present. She did have severe pain when her right lower quadrant was palpated, however she denied pain upon palpation of left quadrant. However, it is noted that the patient had left quadrant pain when palpated per surgery's note. Her white count was elevated on admission at 17.0. It is 13.9 this morning. She is receiving zosyn. 03/13/2017 Patient seen and examined this morning. She appears more awake this morning. Able to open eyes. Continues to complain of right side abdominal pain but she states it is improved since yesterday. She is NPO for surgery today with Dr. Leal. Procedure planned is drainage of pelvic abscess, sigmoid colectomy, and colostomy. She was hypoglycemic last night with a BS of 57 and 61. This morning she is 101. Dr. Golden started the patient on D5.45 @ 125cc/hr. Her temperatute this morning is 99.9F. Her Tmax over the last [address] Dey, infectious disease, is also on consult. The patient remains on Vanco , Zosyn, and Flagyl. 03/14/2017 Patient seen and examined this morning by Dr. Golden. Patient underwent an exploratory laparotomy, lysis of adhesions, small bowel resection, and sigmoid colectomy with end colostomy. The patient remained on the ventilator after surgery and was transferred to the ICU. The patients urine output was low and she was bolused with normal saline. Her vital signs remained stable. her white count this morning is 12.6 and hemoglobin is 10.6. WEN drain is present. Her surgical incision site does have some erythema present and resembles a cellulitis. She remains on zosyn and flagyl. The patient underwent a CPAP trial this morning and was successfully extubated. 03/15/2017 Patient was seen and examined this morning by Dr. Golden. Patient is POD #2 exploratory laparotomy, lysis of adhesions, small bowel resection, sigmoid colectomy with end colostomy. The patient was extubated yesterday. She is on room air and maintaining oxygen saturations greater than 92%. She is confused. She pulled out her NG tube yesterday. Her blood culture from 03/11/2017 was positive for staphylococcus epidermidis, which is likely contamination. Her repeat cultures are negative at the 48 hour luis alberto. Her wound culture is still pending but preliminary results show gram negative bacilli. She remains on zosyn per infectious disease. WEN drain remains intact with serous drainage. Colostomy stoma is pink and moist. No stool noted in the colostomy at this time. Her potassium is low at 3.1 this morning and is being replaced per protocol. Her creatinine this morning is 1.9. Yesterday it was 1.2. It was 0.9 on admission. She is receiving D5 with 3 amps of bicarb at 100cc/hr. 03/16/[address] Henson (covering for Dr. Golden) 03/17/[address] Henson (covering for Dr. Golden) 03/18/2017 The patient was seen and examined this morning by Dr. Golden. Patient is POD #5 exploratory laparotomy, lysis of adhesions, small bowel resection, sigmoid colectomy with end colostomy. She is currently sitting up in the chair resting. Diet was advanced today to full liquid per surgical service. Her colostomy has brown loose output. Nephrology was consulted over the weekend for acute kidney injury. Her creatinine was 1.96 yesterday. Today it is 1.88. It peaked at 2.03. WEN drain remains intact. Dressing to abdomen is clean dry and intact. Elaine remains intact per nephrology recommendations. Potassium is low this morning at 3.4. 03/19/2017 Patient seen and examined this morning on rounds with Dr. Golden. Patient is POD #6 exploratory laparotomy, lysis of adhesions, small bowel resection, sigmoid colectomy with end colostomy. She is laying in the bed. She states her pain is tolerable. She was up in the chair yesterday. Her potassium was low yesterday at 3.4 and was replaced. Repeat this morning is 3.8. Hemoglobin is stable at 9.5. White count is 7.3. Creatinine is slightly worse today at 1.93 (1.88 yesterday). Nephrology is consulted. Elaine catheter remains intact per nephrology request. Colostomy has brown liquid output. WEN drain intact with minimal serosanguinous fluid. Diet has been advanced to soft foods. 03/20/2017 Patient is POD #7 exploratory laparotomy, lysis of adhesions, small bowel resection, sigmoid colectomy with end colostomy. Her diet has been advanced to soft foods per surgery and she is tolerating without nausea or vomiting. Her colostomy has had a significant increase in drainage and was changed to a elaine drainage bag. C Diff was ordered by surgery. Nephrology is consulted and is following for CKD. PT and OT is working with the patient. Goal is to DC to ECF. 03/21/2017 Patient seen and examined at the bedside with Dr. Golden. Patient is POD #8 exploratory laparotomy, lysis of adhesions, small bowel resection, sigmoid colectomy with end colostomy. Her output in the colostomy has significantly decreased and is no longer put out high volumes of liquid stool. Small amount of brown soft stool noted in colostomy bag. Patient is eating breakfast and drinking ensure upon evaluation. States her appetite is fair. Her white count has increased from 7.3 to 10.9. She is on antibiotics per infectious disease: Her wound culture is postive for E. Coli and anaerobic gram negative bacilli. Discharge planning is in process and patient is likely going to [facility] when stable for discharge. Objective - Vital Signs Vital signs: Vital Signs Temp 98.0 F 03/21/17 07:14 Pulse 84 03/21/17 08:20 Resp 20 03/21/17 07:14 BP 138/75 03/21/17 07:14 Pulse Ox 99 03/21/17 02:41 Intake & Output 03/20/17 03/21/17 03/21/17 18:59 06:59 18:59 Intake Total 400 600 Output Total 1020 850 Balance -620 -250 Intake: IV 400 Sodium Chloride 0.9% 1, 400 000 ml @ 50 mls/hr IV . Q20H GABRIEL Rx#:[id number] Intake, IV Titration 400 Amount Sodium Chloride 0.9% 1, 400 000 ml @ 50 mls/hr IV . Q20H GABRIEL Rx#:[id number] Oral 200 Output: Drainage 20 50 Right Lower Abdomen 20 50 Stool 1000 800 Other: Voiding Method Indwelling Catheter # Voids 1 - Exam GENERAL: awake and alert. pleasantly confused. RESPIRATORY: Lungs coarse throughout. No use of accessory muscles. Patient maintaining oxygen saturation greater than 92%. CARDIOVASCULAR: S1 and S2 noted. No murmurs auscultated. No JVD noted. EXTREMITIES: No edema noted. Palpable pedal pulses +2. ABDOMEN: No distention noted. Abdomen soft and round. WEN drain in place. Dressing to abdominal surgical site noted. Colostomy with soft brown stool. - Labs CBC & Chem 7: 03/21/17 06:24 03/21/17 06:24 Labs: Abnormal Lab Results - Last 24 Hours (Table) 03/20/17 03/20/17 03/20/17 Range/Units 14:00 16:46 20:06 WBC (3.8-10.6) k/uL RBC (3.80-5.40) m/uL Hgb (11.4-16.0) gm/dL Hct (34.0-46.0) % MCHC (31.0-37.0) g/dL Neutrophils # (1.3-7.7) k/uL Potassium (3.5-5.1) mmol/L Chloride (98-107) mmol/L Carbon Dioxide (22-30) mmol/L Creatinine (0.52-1.04) mg/dL Glucose (74-99) mg/dL POC Glucose (mg/dL) 147 H 114 H (75-99) mg/dL Calcium (8.4-10.2) mg/dL Total Bilirubin (0.2-1.3) mg/dL Total Protein (6.3-8.2) g/dL Albumin (3.5-5.0) g/dL Urine Ketones Trace H (Negative) 03/21/17 03/21/17 03/21/17 Range/Units 06:24 06:24 07:07 WBC 10.9 H (3.8-10.6) k/uL RBC 3.28 L (3.80-5.40) m/uL Hgb 9.1 L (11.4-16.0) gm/dL Hct 29.6 L (34.0-46.0) % MCHC 30.7 L (31.0-37.0) g/dL Neutrophils # 8.9 H (1.3-7.7) k/uL Potassium 3.4 L (3.5-5.1) mmol/L Chloride 118 H (98-107) mmol/L Carbon Dioxide 18 L (22-30) mmol/L Creatinine 1.81 H (0.52-1.04) mg/dL Glucose 112 H (74-99) mg/dL POC Glucose (mg/dL) 106 H (75-99) mg/dL Calcium 8.0 L (8.4-10.2) mg/dL Total Bilirubin 0.1 L (0.2-1.3) mg/dL Total Protein 4.6 L (6.3-8.2) g/dL Albumin 2.1 L (3.5-5.0) g/dL Urine Ketones (Negative) Assessment and Plan Plan: ASSESSMENT: -Abdominal pain, present on admission, likely secondary to 6 cm peridiverticular abscess anterior to the mid sigmoid colon, resolving -s/p exploratory laparotomy, lysis of adhesions, and bowel resection with colostomy on March 13, 2017, POD #8. -History of recent exploratory laparotomy with lysis of adhesions and 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 -History of dementia -History of coronary artery disease with myocardial infarction -Diabetes mellitus, type II -Hypokalemia -Acute kidney injury secondary to ischemic ATN, creatinine 0.9 on admission, 2.03 this morning -Sepsis, present on admission, related to peridiverticular abscess PLAN: -Continue post operative care per Dr Leal -Infectious disease on consult -Antibiotics per infectious disease recommendations -Nephrology on consult for STEVEN. -Monitor labs, monitor kidney function -Replace potassium per protocol -Pain Control -GI prophylaxis: Pepcid 20mg PO daily -DVT prophylaxis: Heparin 5000 units subcu every 8 hours -Monitor vital signs and address as appropriate -Monitor capillary blood glucose -Humalog sliding scale coverage -PT/OT -Discharge planning: Social work and case management working on subacute rehab. Patient likely to be discharged tomorrow to [facility]. -Patient is stable for discharge from a medical standpoint when okay with surgery The above impression and plan of care have been discussed and directed by signing physician. Torie Willett, nurse practitioner, acting as scribe for signing physician.
--- NOTE | 2017-03-21 10:45 | P.PN ---
Subjective Progress Note Date: 03/21/17 66-year-old female seen and examined at bedside sitting up taking a diet on. Did note the patient did ambulate with the use of rolled walker with to assist out in the hallway this morning gait is noted to be stable increasingly more awake and alert a noted decrease in the ostomy output this morning small amount of brown liquid stool in the ostomy bag noted this morning. Patient is being followed by infectious disease for wound culture positive for E. coli gram- negative bacilli. Discharge plan and progress patient will be transferred anticipate within the next 24 hours Objective - Vital Signs Vital signs: Vital Signs Temp 98.0 F 03/21/17 07:14 Pulse 84 03/21/17 08:20 Resp 20 03/21/17 07:14 BP 138/75 03/21/17 07:14 Pulse Ox 99 03/21/17 02:41 Intake & Output 03/20/17 03/21/17 03/21/17 18:59 06:59 18:59 Intake Total 400 600 Output Total 1020 850 Balance -620 -250 Intake: IV 400 Sodium Chloride 0.9% 1, 400 000 ml @ 50 mls/hr IV . Q20H GABRIEL Rx#:[id number] Intake, IV Titration 400 Amount Sodium Chloride 0.9% 1, 400 000 ml @ 50 mls/hr IV . Q20H GABRIEL Rx#:[id number] Oral 200 Output: Drainage 20 50 Right Lower Abdomen 20 50 Stool 1000 800 Other: Voiding Method Indwelling Catheter # Voids 1 - Exam Physical exam 66-year-old female resting in bed appears in no acute distress patient had been up ambulating in the hallway with the use of rolled walker this morning Lungs coarse rhonchi throughout diminished bases harsh nonproductive cough sats are documented 98% on 2 L Heart S1-S2 audible and regular Abdomen soft no facial grimacing with palpitation to the abdominal wall nhan in place to surgical site dressing dry WEN drain right lower quadrant scant amount of serous drainage noted in the bulb ostomy left lower quadrant approximately 100 mL of liquid brown stool noted bag no nausea no vomiting not distended bowel tones present Extremities a trace pedal edema bilaterally - Labs CBC & Chem 7: 03/21/17 06:24 03/21/17 06:24 Labs: Abnormal Lab Results - Last 24 Hours (Table) 03/20/17 03/20/17 03/20/17 Range/Units 14:00 16:46 20:06 WBC (3.8-10.6) k/uL RBC (3.80-5.40) m/uL Hgb (11.4-16.0) gm/dL Hct (34.0-46.0) % MCHC (31.0-37.0) g/dL Neutrophils # (1.3-7.7) k/uL Potassium (3.5-5.1) mmol/L Chloride (98-107) mmol/L Carbon Dioxide (22-30) mmol/L Creatinine (0.52-1.04) mg/dL Glucose (74-99) mg/dL POC Glucose (mg/dL) 147 H 114 H (75-99) mg/dL Calcium (8.4-10.2) mg/dL Total Bilirubin (0.2-1.3) mg/dL Total Protein (6.3-8.2) g/dL Albumin (3.5-5.0) g/dL Urine Ketones Trace H (Negative) 03/21/17 03/21/17 03/21/17 Range/Units 06:24 06:24 07:07 WBC 10.9 H (3.8-10.6) k/uL RBC 3.28 L (3.80-5.40) m/uL Hgb 9.1 L (11.4-16.0) gm/dL Hct 29.6 L (34.0-46.0) % MCHC 30.7 L (31.0-37.0) g/dL Neutrophils # 8.9 H (1.3-7.7) k/uL Potassium 3.4 L (3.5-5.1) mmol/L Chloride 118 H (98-107) mmol/L Carbon Dioxide 18 L (22-30) mmol/L Creatinine 1.81 H (0.52-1.04) mg/dL Glucose 112 H (74-99) mg/dL POC Glucose (mg/dL) 106 H (75-99) mg/dL Calcium 8.0 L (8.4-10.2) mg/dL Total Bilirubin 0.1 L (0.2-1.3) mg/dL Total Protein 4.6 L (6.3-8.2) g/dL Albumin 2.1 L (3.5-5.0) g/dL Urine Ketones (Negative) Assessment and Plan Plan: Impression Present on admission abdominal pain left lower quadrant onset 2 days prior suspect due to 6 cm peridiverticular abscess anterior to the mid sigmoid colon History of a recent 11/30/2016 exploratory laparotomy lysis of adhesions 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 History of Parkinson's Dementia no behavior disturbance Coronary artery disease with prior myocardial infarction Seizure disorder last seizure in the 70s Chronic anemia Peripheral vascular disease Status post March 13 exploratory laparotomy, lysis of adhesions, small bowel resection, sigmoid colectomy with end colostomy Postop hypokalemia metabolic acidosis secondary to acute kidney injury nonoliguric acute kidney injury secondary to ischemic ATN secondary to sepsis Plan Continue postop surgical care per infectious disease antibiotics recommendations noted DVT and GI prophylaxis Home meds as appropriate Continue recommendations by nephrology Pain control PT OT eval Repeat labs in the morning advance diet Discharge plan and progress subacute rehab when stable The above impression and plan of care have been discussed and directed by signing physician. Danuta Ocampo nurse practitioner acting as scribe for signing physician.
[2017-03-21 11:24] LABS: Glucose,Whole Blood 122 mg/dL (75-99)
[2017-03-21] MEDS: POTASSIUM CHLORIDE 10 MEQ, LIDOCAINE 2% INJ 10 MG in SODIUM CHLORIDE 0.9% 100 ML IV SCH ×4 (11:32→16:30)
--- NOTE | 2017-03-21 11:36 | P.PN ---
Subjective Patient is seen in follow-up for acute kidney injury. Her baseline creatinine is 1 and is now in the range of 1.8-1.9. Patient presented with abdominal pain and was noted to have an abscess. She underwent exploratory laparotomy with lysis of adhesions this admission. Cultures have been positive for E. coli. She is maintained on antibiotics per infectious disease recommendations. Her diet has gradually been advanced to soft and is tolerating it well. She is nonoliguric. No vomiting. Casarez catheter has been discontinued and she has been voiding. Vital signs are stable. General: The patient appeared well nourished and normally developed. HEENT: Head exam is unremarkable. Neck is without jugular venous distension. LUNGS: Lungs are clear to auscultation and percussion. Breath sounds decreased. HEART: Rate and Rhythm are regular. First and second heart sounds normal. No murmurs, rubs or gallops. ABDOMEN: Abdominal exam reveals normal bowel sounds. Generalized tenderness. Bowel sounds present. EXTREMITITES: No clubbing, cyanosis, or edema. Objective - Vital Signs Vital signs: Vital Signs Temp 98.0 F 03/21/17 07:14 Pulse 84 03/21/17 08:20 Resp 20 03/21/17 07:14 BP 138/75 03/21/17 07:14 Pulse Ox 99 03/21/17 02:41 Intake & Output 03/20/17 03/21/17 03/21/17 18:59 06:59 18:59 Intake Total 400 600 Output Total 1020 850 Balance -620 -250 Intake: IV 400 Sodium Chloride 0.9% 1, 400 000 ml @ 50 mls/hr IV . Q20H GABRIEL Rx#:[id number] Intake, IV Titration 400 Amount Sodium Chloride 0.9% 1, 400 000 ml @ 50 mls/hr IV . Q20H GABRIEL Rx#:[id number] Oral 200 Output: Drainage 20 50 Right Lower Abdomen 20 50 Stool 1000 800 Other: Voiding Method Indwelling Catheter # Voids 1 - Labs CBC & Chem 7: 03/21/17 06:24 03/21/17 06:24 Labs: Abnormal Lab Results - Last 24 Hours (Table) 03/20/17 03/20/17 03/20/17 Range/Units 14:00 16:46 20:06 WBC (3.8-10.6) k/uL RBC (3.80-5.40) m/uL Hgb (11.4-16.0) gm/dL Hct (34.0-46.0) % MCHC (31.0-37.0) g/dL Neutrophils # (1.3-7.7) k/uL Potassium (3.5-5.1) mmol/L Chloride (98-107) mmol/L Carbon Dioxide (22-30) mmol/L Creatinine (0.52-1.04) mg/dL Glucose (74-99) mg/dL POC Glucose (mg/dL) 147 H 114 H (75-99) mg/dL Calcium (8.4-10.2) mg/dL Total Bilirubin (0.2-1.3) mg/dL Total Protein (6.3-8.2) g/dL Albumin (3.5-5.0) g/dL Urine Ketones Trace H (Negative) 03/21/17 03/21/17 03/21/17 Range/Units 06:24 06:24 07:07 WBC 10.9 H (3.8-10.6) k/uL RBC 3.28 L (3.80-5.40) m/uL Hgb 9.1 L (11.4-16.0) gm/dL Hct 29.6 L (34.0-46.0) % MCHC 30.7 L (31.0-37.0) g/dL Neutrophils # 8.9 H (1.3-7.7) k/uL Potassium 3.4 L (3.5-5.1) mmol/L Chloride 118 H (98-107) mmol/L Carbon Dioxide 18 L (22-30) mmol/L Creatinine 1.81 H (0.52-1.04) mg/dL Glucose 112 H (74-99) mg/dL POC Glucose (mg/dL) 106 H (75-99) mg/dL Calcium 8.0 L (8.4-10.2) mg/dL Total Bilirubin 0.1 L (0.2-1.3) mg/dL Total Protein 4.6 L (6.3-8.2) g/dL Albumin 2.1 L (3.5-5.0) g/dL Urine Ketones (Negative) 03/21/17 Range/Units 11:19 WBC (3.8-10.6) k/uL RBC (3.80-5.40) m/uL Hgb (11.4-16.0) gm/dL Hct (34.0-46.0) % MCHC (31.0-37.0) g/dL Neutrophils # (1.3-7.7) k/uL Potassium (3.5-5.1) mmol/L Chloride (98-107) mmol/L Carbon Dioxide (22-30) mmol/L Creatinine (0.52-1.04) mg/dL Glucose (74-99) mg/dL POC Glucose (mg/dL) 122 H (75-99) mg/dL Calcium (8.4-10.2) mg/dL Total Bilirubin (0.2-1.3) mg/dL Total Protein (6.3-8.2) g/dL Albumin (3.5-5.0) g/dL Urine Ketones (Negative) Assessment and Plan Plan: Assessment: #1. Nonoliguric acute kidney injury secondary to ischemic ATN secondary to sepsis. Baseline creatinine is 1 peaked at 2.03 this admission. Stable in the range of 1.8-1.9 now. Urinalysis is quite benign. She also received IV contrast dye on March 11. No evidence of hydronephrosis on CAT scan. Urine eosinophils negative. #2.. Diverticular abscess status post exploratory laparotomy, lysis of adhesions, small bowel resection, and sigmoid colectomy with end colostomy. #3. Hypokalemia secondary to poor oral intake. Magnesium replete. #4. Metabolic acidosis secondary to acute kidney injury and IV fluids. Plan: Continue normal saline at 50 mL an hour. Maintain oral sodium bicarbonate 650 mg twice daily. Monitor accurate I's and O's. Avoid nephrotoxic agents and hypotensive episodes. Antibiotics per infectious disease recommendations. Repeat electrolytes in the morning. Potential subacute rehab upon discharge. Replace potassium. 40 mEq today. Recheck magnesium level as well.
[2017-03-21 17:45] LABS: Glucose,Whole Blood 117 mg/dL (75-99)
[2017-03-21 20:04] LABS: Glucose,Whole Blood 110 mg/dL (75-99)
[2017-03-21] MEDS: risperiDONE 1 MG TAB PO SCH (20:52)
[2017-03-21] MEDS: PANTOPRAZOLE 40 MG TABLET PO SCH (20:52)
[2017-03-21] MEDS: MIRTAZAPINE 15 MG TAB PO SCH (20:53)
--- NOTE | 2017-03-21 22:17 | PN ---
DATE OF SERVICE :03/21/17 PROGRESS NOTE REASON FOR FOLLOWUP: Abdominal abscess from ruptured diverticulitis. INTERVAL HISTORY: The patient is afebrile. She is currently breathing comfortably. No chest pain. No cough. No abdominal pain. No nausea, vomiting or any diarrhea. PHYSICAL EXAMINATION: Blood pressure is 150/78 with a pulse of 85, temperature of 98.2. She is 96% on room air. General description is an elderly female up in the chair in no distress. RESPIRATORY SYSTEM: Unlabored breathing. Clear to auscultation anteriorly. HEART: S1, S2. Regular rate and rhythm. ABDOMEN: Soft. No tenderness. LABS: Hemoglobin is 9.1, white count 10.9 with a BUN of 13, creatinine 1.81. DIAGNOSTIC IMPRESSION AND PLAN: Patient with abdominal abscess with Escherichia coli and anaerobic bacilli patient at this time is on the Unasyn. Dose will be adjusted back to q.8 hours in view of the improvement in her kidney function. Oral Flagyl will be added. Continue supportive care. MMODL / IJN: [id number] / BREANNA
[2017-03-22] MEDS: SODIUM CHLORIDE 0.9% 1,000 ML IV SCH (02:37)
[2017-03-22] MEDS ORDERED: FUROSEMIDE 10 MG/ML 2 ML VIAL IV STA (06:01)
[2017-03-22 07:12] LABS: Glucose,Whole Blood 120 mg/dL (75-99)
[2017-03-22] MEDS: ALBUTEROL NEBULIZED 2.5 MG/3 ML INHALATION SCH ×3 (07:16→17:06)
--- NOTE | 2017-03-22 07:32 | XR ---
PROCEDURE: FILM CXR 1 VIEW HISTORY: 66-year-old male with shortness of breath. COMPARISON: Chest radiograph 03/20/2017 and 03/17/2017 TECHNIQUE: Frontal view of the chest was obtained. FINDINGS: Limited by technique. Cardiomediastinal silhouette is stable. Left basilar consolidation, may be due to pneumonia in the appropriate clinical setting. Nodular densities project over the medial right lung base. Findings may be due to pulmonary nodules versus artifact. Followup chest x-ray when acute issues have resolved. Mild degenerative changes of the spine. IMPRESSION: Left basilar consolidation, may be due to pneumonia in the appropriate clinical setting. Nodular densities project over the medial right lung base. Findings may be due to pulmonary nodules versus artifact. Followup chest x-ray when acute issues have resolved.
[2017-03-22 08:07] LABS: Magnesium 1.4 mg/dL (1.6-2.3); Potassium 3.7 mmol/L (3.5-5.1); Total Bilirubin 0.1 mg/dL (0.2-1.3); Total Protein 4.9 g/dL (6.3-8.2)
[2017-03-22] MEDS: INSULIN LISPRO (humaLOG) 300 UNIT/3 ML VIAL SQ SCH ×3 (08:24→17:28)
[2017-03-22] MEDS: FAMOTIDINE 20 MG TAB PO SCH (08:26)
[2017-03-22] MEDS: DONEPEZIL 10 MG TAB PO SCH (08:26)
[2017-03-22] MEDS: HEPARIN SODIUM,PORCINE 5,000 UNIT/ML 1 ML VIAL SQ SCH ×2 (08:26→16:39)
[2017-03-22] MEDS: MONTELUKAST 10 MG TAB PO SCH (08:27)
[2017-03-22] MEDS: SODIUM BICARBONATE TAB 650 MG TAB PO SCH (08:27)
[2017-03-22] MEDS: SERTRALINE 50 MG TAB PO SCH (08:27)
[2017-03-22] MEDS: LORATADINE 10 MG TAB PO SCH (08:27)
[2017-03-22] MEDS: MEMANTINE 5 MG TAB PO SCH (08:27)
[2017-03-22] MEDS: metroNIDAZOLE 500 MG TAB PO SCH ×2 (08:27→16:39)
[2017-03-22] MEDS: AMPICILLIN-SULBACTAM 3 GM in SODIUM CHLORIDE 0.9% 100 ML IVPB SCH (09:03)
--- NOTE | 2017-03-22 09:52 | P.PN ---
Subjective 03/12/2017 This is a 66 year old female who presented to the ER with a chief complaint of abdominal pain. The patient was brought in by her sister, Reny, who is also her legal guardian. Her abdominal pain has been present for approximately 2 days. In the emergency room, a CT scan of the abdomen and pelvis was completed which revealed inflammatory changes in the pelvis suggestive of a 6 cm peridiverticular abscess anterior to the mid sigmoid colon. A chest x-ray was completed which was unremarkable. The patient has underwent prior abdominal surgeries. 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 The patient was admitted to the hospital under the care of Dr. Leal. A consult was placed to Dr. Golden, the patient's PCP, for medical management. Consults were also placed to interventional radiology for possible drainage of the abscess. The patient was seen and examined this morning at the bedside with Dr. oGlden. There is no family present at this time. The patient is very lethargic this morning. She would not open her eyes. She does have a history of dementia. However she would answer questions and nod appropriately. She denies chest pain or shortness of breath. Bowel sounds are present. She did have severe pain when her right lower quadrant was palpated, however she denied pain upon palpation of left quadrant. However, it is noted that the patient had left quadrant pain when palpated per surgery's note. Her white count was elevated on admission at 17.0. It is 13.9 this morning. She is receiving zosyn. 03/13/2017 Patient seen and examined this morning. She appears more awake this morning. Able to open eyes. Continues to complain of right side abdominal pain but she states it is improved since yesterday. She is NPO for surgery today with Dr. Leal. Procedure planned is drainage of pelvic abscess, sigmoid colectomy, and colostomy. She was hypoglycemic last night with a BS of 57 and 61. This morning she is 101. Dr. Golden started the patient on D5.45 @ 125cc/hr. Her temperatute this morning is 99.9F. Her Tmax over the last [address] Dey, infectious disease, is also on consult. The patient remains on Vanco , Zosyn, and Flagyl. 03/14/2017 Patient seen and examined this morning by Dr. Golden. Patient underwent an exploratory laparotomy, lysis of adhesions, small bowel resection, and sigmoid colectomy with end colostomy. The patient remained on the ventilator after surgery and was transferred to the ICU. The patients urine output was low and she was bolused with normal saline. Her vital signs remained stable. her white count this morning is 12.6 and hemoglobin is 10.6. WEN drain is present. Her surgical incision site does have some erythema present and resembles a cellulitis. She remains on zosyn and flagyl. The patient underwent a CPAP trial this morning and was successfully extubated. 03/15/2017 Patient was seen and examined this morning by Dr. Golden. Patient is POD #2 exploratory laparotomy, lysis of adhesions, small bowel resection, sigmoid colectomy with end colostomy. The patient was extubated yesterday. She is on room air and maintaining oxygen saturations greater than 92%. She is confused. She pulled out her NG tube yesterday. Her blood culture from 03/11/2017 was positive for staphylococcus epidermidis, which is likely contamination. Her repeat cultures are negative at the 48 hour luis alberto. Her wound culture is still pending but preliminary results show gram negative bacilli. She remains on zosyn per infectious disease. WEN drain remains intact with serous drainage. Colostomy stoma is pink and moist. No stool noted in the colostomy at this time. Her potassium is low at 3.1 this morning and is being replaced per protocol. Her creatinine this morning is 1.9. Yesterday it was 1.2. It was 0.9 on admission. She is receiving D5 with 3 amps of bicarb at 100cc/hr. 03/16/[address] Henson (covering for Dr. Golden) 03/17/[address] Henson (covering for Dr. Golden) 03/18/2017 The patient was seen and examined this morning by Dr. Golden. Patient is POD #5 exploratory laparotomy, lysis of adhesions, small bowel resection, sigmoid colectomy with end colostomy. She is currently sitting up in the chair resting. Diet was advanced today to full liquid per surgical service. Her colostomy has brown loose output. Nephrology was consulted over the weekend for acute kidney injury. Her creatinine was 1.96 yesterday. Today it is 1.88. It peaked at 2.03. WEN drain remains intact. Dressing to abdomen is clean dry and intact. Elaine remains intact per nephrology recommendations. Potassium is low this morning at 3.4. 03/19/2017 Patient seen and examined this morning on rounds with Dr. Golden. Patient is POD #6 exploratory laparotomy, lysis of adhesions, small bowel resection, sigmoid colectomy with end colostomy. She is laying in the bed. She states her pain is tolerable. She was up in the chair yesterday. Her potassium was low yesterday at 3.4 and was replaced. Repeat this morning is 3.8. Hemoglobin is stable at 9.5. White count is 7.3. Creatinine is slightly worse today at 1.93 (1.88 yesterday). Nephrology is consulted. Elaine catheter remains intact per nephrology request. Colostomy has brown liquid output. WEN drain intact with minimal serosanguinous fluid. Diet has been advanced to soft foods. 03/20/2017 Patient is POD #7 exploratory laparotomy, lysis of adhesions, small bowel resection, sigmoid colectomy with end colostomy. Her diet has been advanced to soft foods per surgery and she is tolerating without nausea or vomiting. Her colostomy has had a significant increase in drainage and was changed to a elaine drainage bag. C Diff was ordered by surgery. Nephrology is consulted and is following for CKD. PT and OT is working with the patient. Goal is to DC to [facility]CF. 03/21/2017 Patient seen and examined at the bedside with Dr. Golden. Patient is POD #8 exploratory laparotomy, lysis of adhesions, small bowel resection, sigmoid colectomy with end colostomy. Her output in the colostomy has significantly decreased and is no longer put out high volumes of liquid stool. Small amount of brown soft stool noted in colostomy bag. Patient is eating breakfast and drinking ensure upon evaluation. States her appetite is fair. Her white count has increased from 7.3 to 10.9. She is on antibiotics per infectious disease: Her wound culture is postive for E. Coli and anaerobic gram negative bacilli. Discharge planning is in process and patient is likely going to [facility] when stable for discharge. 03/22/2017 Patient seen and examined this morning on rounds with Dr. Golden. Patient is POD #9 exploratory laparotomy, lysis of adhesions, small bowel resection, sigmoid colectomy with end colostomy. She is sitting up in the chair this morning eating breakfast. She denies nausea or vomiting. She is pleasantly confused which is her baseline. Dr. Golden was called this morning by nursing staff for respiratory distress and wheezing. Her IV fluids were discontinued, lasix was ordered, and a chest xray was completed. Upon assessment, the patient does not appear to be wheezing. She denies shortness of breath. Her chest xray this morning shows left basilar consilidation and possible pneumonia. The patient is on Unasyn. Infectious disease is following. Patient is [facility] a medical standpoint. Objective - Vital Signs Vital signs: Vital Signs Temp 98.5 F 03/22/17 07:36 Pulse 92 03/22/17 07:29 Resp 20 03/22/17 07:23 BP 146/73 03/22/17 07:23 Pulse Ox 100 03/22/17 07:23 Intake & Output 03/21/17 03/22/17 03/22/17 18:59 06:59 18:59 Intake Total 1000 Output Total 420 470 Balance -420 530 Weight 66.9 kg 69.5 kg Intake: IV 550 Ampicillin-Sulbactam 3 gm 100 In Sodium Chloride 0.9% 100 ml @ 100 mls/hr IVPB Q8H GABRIEL Rx#:[id number] Sodium Chloride 0.9% 1, 450 000 ml @ 50 mls/hr IV . Q20H GABRIEL Rx#:[id number] Oral 450 Output: Drainage 20 20 Right Lower Abdomen 20 20 Stool 400 450 Other: Voiding Method Diaper Bedside Commode Diaper Incontinent # Voids 1 1 # Bowel Movements 1 - Exam GENERAL: awake and alert. pleasantly confused. RESPIRATORY: Lungs coarse throughout. No use of accessory muscles. Patient maintaining oxygen saturation greater than 92%. CARDIOVASCULAR: S1 and S2 noted. No murmurs auscultated. No JVD noted. EXTREMITIES: No edema noted. Palpable pedal pulses +2. ABDOMEN: No distention noted. Abdomen soft and round. WEN drain in place. Dressing to abdominal surgical site noted. Colostomy with soft brown stool. - Labs CBC & Chem 7: 03/21/17 06:24 03/22/17 07:02 Labs: Abnormal Lab Results - Last 24 Hours (Table) 03/21/17 03/21/17 03/21/17 Range/Units 11:19 17:33 20:02 Chloride (98-107) mmol/L Carbon Dioxide (22-30) mmol/L Creatinine (0.52-1.04) mg/dL Glucose (74-99) mg/dL POC Glucose (mg/dL) 122 H 117 H 110 H (75-99) mg/dL Calcium (8.4-10.2) mg/dL Magnesium (1.6-2.3) mg/dL Total Bilirubin (0.2-1.3) mg/dL Total Protein (6.3-8.2) g/dL Albumin (3.5-5.0) g/dL 03/22/17 03/22/17 Range/Units 07:02 07:08 Chloride 117 H (98-107) mmol/L Carbon Dioxide 16 L (22-30) mmol/L Creatinine 1.66 H (0.52-1.04) mg/dL Glucose 112 H (74-99) mg/dL POC Glucose (mg/dL) 120 H (75-99) mg/dL Calcium 8.0 L (8.4-10.2) mg/dL Magnesium 1.4 L (1.6-2.3) mg/dL Total Bilirubin 0.1 L (0.2-1.3) mg/dL Total Protein 4.9 L (6.3-8.2) g/dL Albumin 2.3 L (3.5-5.0) g/dL Assessment and Plan Plan: ASSESSMENT: -Abdominal pain, present on admission, likely secondary to 6 cm peridiverticular abscess anterior to the mid sigmoid colon, resolving -s/p exploratory laparotomy, lysis of adhesions, and bowel resection with colostomy on March 13, 2017, POD #9. -History of recent exploratory laparotomy with lysis of adhesions and 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 -History of dementia -History of coronary artery disease with myocardial infarction -Diabetes mellitus, type II -Hypokalemia -Acute kidney injury secondary to ischemic ATN, creatinine 0.9 on admission, 1.66 this morning -Sepsis, present on admission, related to peridiverticular abscess -Hypomagnesemia PLAN: -Continue post operative care per Dr Leal -Infectious disease on consult -Antibiotics per infectious disease recommendations -Nephrology on consult for STEVEN. -Monitor labs, monitor kidney function -Replace magnesium per protocol -Pain Control -GI prophylaxis: Pepcid 20mg PO daily -DVT prophylaxis: Heparin 5000 units subcu every 8 hours -Monitor vital signs and address as appropriate -Monitor capillary blood glucose -Humalog sliding scale coverage -PT/OT -Discharge planning: Social work and case management working on subacute rehab. Patient likely to be discharged today to [facility]. -Patient is stable for discharge from a medical standpoint when okay with surgery The above impression and plan of care have been discussed and directed by signing physician. Torie Willett, nurse practitioner, acting as scribe for signing physician.
[2017-03-22] MEDS: MAGNESIUM SULFATE-D5W PMX 1 GM in DEXTROSE/WATER 1 100ML.BAG IVPB SCH ×3 (10:40→13:04)
--- NOTE | 2017-03-22 11:35 | P.PN ---
Subjective Progress Note Date: 03/22/17 Principal diagnosis: Complicated diverticulitis of the sigmoid with abscess, Harsh post exploratory laparotomy, sigmoid resection and colostomy Complicated diverticulitis of the sigmoid with abscess. 66-year-old female patient, presented to the hospital because of abdominal pain. Pain was mainly in the left lower quadrant. Patient has significant tenderness involving the left lower quadrant. There is significant tenderness to the left lower quadrant white count was elevated tachycardic heart rate in the 90s and he was sat been started on IV Zosyn. CT of the abdomen and pelvis showed inflammatory changes the pelvis and complicated sigmoid diverticulitis and 6 cm pericolonic abscess. Based on that the patient was taken to the OR and she underwent exp. laparotomy, Lysis of adhesions, Small bowel resection, Sigmoid colectomy with end colostomy and a Partial greater omentectomy. Pos op the patient was kept intubated and the patient was brought in the the ICU for further care and weaning. The patient is on a mechanical ventilator on AC of 14 , TV 450, Fio2 1005 and a PEEP of 5. The patient's ABG showed a component of metablic acidosis and the patient's serum bicarb was down to 15 he had overnight the patient was kept sedated on Diprivan. The patient was given a total of 4 L of IV fluids. 2 L of normal saline was given to her and another liter at midnight. Her current urine output is somewhat between 20-25 mL an hour. Renal function is stable. She is afebrile. She is hemodynamically stable. She is on no pressors. The serum bicarb is still low at 13 and the patient has a component of non-anion gap metabolic acidosis. Most recent blood gases from this morning showed a pH of 7.31 with a pCO2 of 32 and pO2 of 242 and this was done and FiO2 of 50% FiO2 has been down to 30 down to 35%. The patient has an NG tube in place. Output is been minimal. The abdominal wound is showing some erythema in the inferior portion of the vertical midabdominal wound and this may be late to some cellulitis. No active drainage from the wounds. No active drainage from the WEN drain. It drained only 110 mL of serosanguineous material overnight. The patient is on Zosyn and Flagyl. Note the patient was in the hospital in December 2016 and the patient at that time presented with a similar abdominal pain and the CAT scan of the abdomen showed left upper quadrant Jujenal process. Based on all this the patient was taken to the operating room and exploration was done with small bowel was run fluid Treitz and in the left upper quadrant there was a small bowel inflammatory mass. There appeared to be extension of the mass into the mesentery which yet again urned out to be an inflamatory process. The mass appeared to be inflamed. At this point a limited small bowel resection was performed by dividing the small bowel proximally distally to the mass using the linear cutter stapler. A [id number] functional end-to-end staple anastomosis created . Postop, the patient was brought into the intensive care unit intubated on a mechanical ventilator. I successfully extubated the patient and following further care she was discharged home. On 03/15/2017 the patient is being seen in follow-up. I was able to extubate patient yesterday without any major difficulties. She is confused for now. She is able to talk. She is hemodynamically stable on no pressors. She is on IV Zosyn and the wound cultures currently are still pending however there showing gram-negative bacilli. She is afebrile for now. She is producing adequate amount of urine output. She is on IV fluids and she is receiving 100 mL of D5/3 A of bicarb and her serum bicarb level is improved and it's up to 23. She has however developing acute kidney injury. Creatinine is up to 1.9. She is producing approximately 34 40 mL hour of urine output. Colostomy site is functional. She failed a swallow evaluation yesterday. She pulled out her NG tube. No abdominal distention. Surgical wound site is dry clean and intact. The patient is seen again today 03/16/2017 in follow-up on the surgical floor. She is currently awake and alert in no acute distress. She denies any worsening shortness of breath, cough or congestion. Her surgical pain is well controlled. Her dressing is dry and intact. WEN drain remains in place. Ostomy is functioning. Wound culture of the groin was positive for E. coli. She is currently on Zosyn. No leukocytosis. Hemoglobin 9.0. On 03/17/2017 the patient was seen in the surgical floor. She was able to sit up on a chair. Her colostomy site is functional. WEN drains in place. She has no specific complaints. She is awake and alert. Pulse ox is 94% liters of oxygen nasal cannula. Afebrile. Hemodynamically stable. No other significant events over the past 24 hours. General surgeries on the case. The patient was given a dose of Lasix to improve her urine output. She is taking oral intake mainly clear liquids. The patient is seen again today 03/18/2017 in follow-up on the surgical floor. She is currently resting quite comfortably in bed. She is awake and alert in no acute distress. She is working well of the incentive spirometer. She is maintaining good O2 saturations in the upper 90s on room air. She's been afebrile. Hemodynamically stable. No leukocytosis. Hemoglobin 8.9. Creatinine 1.88. Nephrology is on the case as well. On 03/19/2017 patient is reevaluated on surgical floor. She denies any respiratory complaints. She is currently on room air with O2 saturations 98%. No febrile episodes through the night, hemodynamically stable. She is compliant with her incentive spirometer, able to achieve 500-750 today. She's been up in the chair during the day. Denies pain. No leukocytosis, creatinine today is 1.93, nephrology following. Microbiology results have been reviewed, she continues on combination of Unasyn and Flagyl per infectious service recommendations. Discharge planning is working on subacute rehab placement. Lung sounds diffuse wheezing throughout the lung gracia. Coarse scattered rhonchi in bilateral upper lobes. Weak nonproductive cough. Continue working on patient's pulmonary toileting. Colostomy producing liquid green stool, WEN drain on the right side of the abdomen with small amount of serosanguineous drainage. On 03/20/2017 patient seen in follow-up. She denies any specific complaints, afebrile, on 2 L per nasal cannula with sats at 97-98%. Lung sounds are diminished with coarse rhonchi. Loose nonproductive cough, able to achieve 500- 750 on her incentive spirometer today. She was up in a chair for a period of time yesterday. Colostomy output has increased overnight, green liquid stool. Colostomy was connected to a Casarez drainage bag. Stool for C. diff will be sent. Creatinine is up to 2.03 today, carbon dioxide is down to 18, nephrology following. WEN drain output is 65 mL over the last 24 hours. Continues on combination of Unasyn and Flagyl for the ruptured sigmoid diverticulitis. Patient is tolerating soft foods diet. On 03/21/2017 patient is anticipated to be transferred to a subacute rehab today. She remained stable from the pulmonary standpoint. Febrile episodes, lung sounds with coarse scattered rhonchi, loose nonproductive cough. Incentive spirometer 500-750 today, patient needs encouragement with it. Colostomy output seems to have decreased, small amount of small brown output from it today. She is tolerating soft diet, no nausea no vomiting. She is clear for discharge from pulmonary standpoint. We'll follow up as needed On 03/22/2017 patient had a episode of increased shortness of breath early this morning. Lung sounds were positive for Rales over posterior bases and some scattered rhonchi. 20 of Lasix IV was administered per Dr. Golden. no significant sputum production, is afebrile. Incentive spirometer effort remains poor, and is only able to achieve 750 at best. Chest x-ray was obtained and reviewed by Dr. Silevr, increased atelectasis over left lower lobe. Oxygenation is stable, patient remains on 3 L2 sat at 99-100. Patient is stable for discharge to subacute rehab today for a pulmonary standpoint Objective - Vital Signs Vital signs: Vital Signs Temp 98.5 F 03/22/17 07:36 Pulse 92 03/22/17 07:29 Resp 20 03/22/17 08:00 BP 146/73 03/22/17 07:23 Pulse Ox 100 03/22/17 07:23 Intake & Output 03/21/17 03/22/17 03/22/17 18:59 06:59 18:59 Intake Total 1000 Output Total 420 470 400 Balance -420 530 -400 Weight 66.9 kg 69.5 kg Intake: IV 550 Ampicillin-Sulbactam 3 gm 100 In Sodium Chloride 0.9% 100 ml @ 100 mls/hr IVPB Q8H G[facility]EL Rx#:[id number] Sodium Chloride 0.9% 1, 450 000 ml @ 50 mls/hr IV . Q20H GABRIEL Rx#:[id number] Oral 450 Output: Drainage 20 20 Right Lower Abdomen 20 20 Urine 400 Stool 400 450 Other: Voiding Method Diaper Bedside Commode Bedside Commode Diaper Diaper Incontinent Incontinent # Voids 1 2 # Bowel Movements 1 - Exam GENERAL EXAM: Alert, active, elderly female comfortable in no apparent distress. HEAD: Normocephalic. EYES: Normal reaction of pupils, equal size. NOSE: Clear with pink turbinates. THROAT: No erythema or exudates. NECK: No masses, no JVD. CHEST: No chest wall deformity. LUNGS: Equal air entry with diffuse wheezes, coarse rhonchi, inspiratory crackles. CVS: S1 and S2 normal with no audible mumurs, regular rhythm. ABDOMEN: No hepatosplenomegaly, normal bowel sounds, no guarding or rigidity. Mid abdominal incision clean dry and intact, with intact nhan. Colostomy on the left with green liquid output, WEN drain on the right side of the abdomen with serosanguineous drainage SPINE: No scoliosis or deformity SKIN: No rashes CENTRAL NERVOUS SYSTEM: No focal deficits, tone is normal in all 4 extremities. - Labs CBC & Chem 7: 03/21/17 06:24 03/22/17 07:02 Labs: Abnormal Lab Results - Last 24 Hours (Table) 03/21/17 03/21/17 03/22/17 Range/Units 17:33 20:02 07:02 Chloride 117 H (98-107) mmol/L Carbon Dioxide 16 L (22-30) mmol/L Creatinine 1.66 H (0.52-1.04) mg/dL Glucose 112 H (74-99) mg/dL POC Glucose (mg/dL) 117 H 110 H (75-99) mg/dL Calcium 8.0 L (8.4-10.2) mg/dL Magnesium 1.4 L (1.6-2.3) mg/dL Total Bilirubin 0.1 L (0.2-1.3) mg/dL Total Protein 4.9 L (6.3-8.2) g/dL Albumin 2.3 L (3.5-5.0) g/dL 03/22/17 Range/Units 07:08 Chloride (98-107) mmol/L Carbon Dioxide (22-30) mmol/L Creatinine (0.52-1.04) mg/dL Glucose (74-99) mg/dL POC Glucose (mg/dL) 120 H (75-99) mg/dL Calcium (8.4-10.2) mg/dL Magnesium (1.6-2.3) mg/dL Total Bilirubin (0.2-1.3) mg/dL Total Protein (6.3-8.2) g/dL Albumin (3.5-5.0) g/dL Assessment and Plan Plan: Assessment and Plan Plan: Assessment 1 exploratory laparotomy, sigmoid resection, and colostomy, lysis of adhesions and partial omentectomy. Postop day 6. The patient was found to have a complicated diverticulitis of the sigmoid with intra-abdominal abscess formation. Currently on a combination of Unasyn and Flagyl and the wound cultures are showing E. coli.. Hemodynamically stable. The colostomy site is functional and viable. WEN drain remains in place. No abdominal distention. NG tube has been removed. 2 small bowel resection in December 2016 which turned out to be an inflammatory mass rather than a true malignancy. The patient recovered from that without any major difficulties. 3 postoperative ventilator dependence. The patient's metabolic acidosis was corrected and the patient was extubated without any major difficulties. 4 dementia, 5 diabetes mellitus, maintained on oral hypoglycemics and the patient will be placed on this a scale coverage for now 6 hyperlipidemia 7 coronary artery disease with previous myocardial infarction 8 seizure disorder many years back and the patient has not been on seizure medication. Her last seizure was back in the 70s., 9 sleep apnea, obstructive sleep apnea with suboptimal compliance to CPAP therapy 10 recent fall with a nasal fracture 11 chronic anemia 12 peripheral vascular disease 13 diverticulosis, with previous history of bowel resection, colostomy and subsequent reversal. 14 cardiac murmur 15 remote history of DVT 16 bipolar disorder 17 chronic bronchial asthma 18 non-anion gap metabolic acidosis, recovered with bicarb infusion. Plan: The patient was seen and evaluated by Dr. Silver. She is stable from the pulmonary standpoint. She needs increased encouragement regarding the use of the incentive spirometer and cough and deep breathing exercises. she was given 20 of Lasix IV this morning, she had been incontinent of large amount of urine afterwards. chest x-ray from 03/22/2017 has been reviewed and shows increased atelectasis on the left. Will continue with bronchodilators. Diet advanced per surgical services. she is sitting up in the chair, appears very comfortable, no signs of respiratory distress, no use of accessory respiratory muscles. she is stable for discharge to the [facility] for rehab from pulmonary standpoint. Follow-up with Dr. Pinto in 1 week I performed a history & physical examination of the patient and discussed their management with my nurse practitioner, Annelise Du. I reviewed the nurse practitioner's note and agree with the documented findings and plan of care. Lung Sounds with a few wheezes, rhonchi and rales. Continue with pulmonary toileting, encouraged to use of incentive spirometer.
[2017-03-22 11:50] LABS: Glucose,Whole Blood 172 mg/dL (75-99)
--- NOTE | 2017-03-22 12:22 | P.DS ---
Providers Date of admission: 03/11/17 18:56 Expected date of discharge: 03/22/17 Attending physician: Jose Juan Leal Consults: 03/12/17 07:52 Consult Physician Stat Consulting Provider: Nelly Dey Consult Reason/Comments: aabx re cs Do you want consulting provider notified?: Yes 03/12/17 07:54 Consult Physician Stat Consulting Provider: Jerry Golden Consult Reason/Comments: med mtg Do you want consulting provider notified?: Yes 03/13/17 16:14 Consult Physician Routine Consulting Provider: Ricco Pinto Consult Reason/Comments: Medical management Do you want consulting provider notified?: Yes 03/17/17 11:09 Consult Physician Routine Consulting Provider: Kerri Sorto Consult Reason/Comments: Acute renal failure Do you want consulting provider notified?: Yes Primary care physician: Jerry Golden Hospital Course: 66-year-old female was admitted on the day of admission to the emergency room with a chief complaint of developing abdominal pain. Patient's workup did indicate the patient did have a abdominal abscess interventional radiology did evaluate abscess was not amendable to percutaneous drainage patient admitted to surgical service. Patient elected to undergo a exploratory laparotomy lysis of adhesions, small bowel resection, sigmoid colectomy with end colostomy with appendectomy partial greater omentumectomy done on the 13 of March Patient was treated for sepsis present on admission due to abdominal abscess from ruptured diverticulitis followed by infectious disease On the day of discharge patient was felt to be hemodynamically stable and appropriate to proceed from all consulting physicians Impression discharge diagnosis Present on admission sepsis due to an abdominal abscess from a ruptured diverticulitis Present on admission abdominal pain left lower quadrant onset 2 days prior suspect due to 6 cm peridiverticular abscess anterior to the mid sigmoid colon History of a recent 11/30/2016 exploratory laparotomy lysis of adhesions 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 History of Parkinson's Dementia no behavior disturbance Coronary artery disease with prior myocardial infarction Seizure disorder last seizure in the 1970s Chronic anemia Peripheral vascular disease Status post March 13 exploratory laparotomy, lysis of adhesions, small bowel resection, sigmoid colectomy with end colostomy with appendectomy Postop hypokalemia, hypomagnesemia metabolic acidosis secondary to acute kidney injury nonoliguric acute kidney injury secondary to ischemic ATN secondary to sepsis Type 2 diabetes non-insulin Chronic debility gait disturbance use roller walker for stability The above impression and plan of care have been discussed and directed by signing physician. Danuta Ocampo nurse practitioner acting as scribe for signing physician. Patient Condition at Discharge: Fair Plan - Discharge Summary New Discharge Prescriptions: New metroNIDAZOLE [Flagyl] 500 mg PO TID #30 tab Cefuroxime Axetil [Ceftin] 500 mg PO BID #20 tab risperiDONE [RisperDAL] 1 mg PO HS #30 tab Continue Albuterol Sulfate [Proair Hfa] 2 puff INHALATION RT-QID PRN PRN Reason: Shortness Of Breath Donepezil [Aricept] 10 mg PO DAILY Montelukast Sodium [Singulair] 10 mg PO DAILY Omeprazole [PriLOSEC] 20 mg PO HS Loratadine 10 mg PO QAM Memantine HCl [Namenda Xr] 28 mg PO DAILY risperiDONE [RisperDAL] 1 mg PO HS Famotidine [Pepcid] 20 mg PO DAILY glipiZIDE [Glucotrol] 5 mg PO DAILY Sertraline [Zoloft] 50 mg PO QAM HYDROcodone/APAP 5-325MG [[place] 5-325] 1 tab PO Q4HR PRN #40 tab PRN Reason: Pain Mirtazapine 7.5 mg PO HS #30 tablet Discontinued traMADol HCL [Ultram] 50 mg PO BID PRN PRN Reason: Pain Discharge Medication List Albuterol Sulfate [Proair Hfa] 2 puff INHALATION RT-QID PRN 06/24/14 [History] Donepezil [Aricept] 10 mg PO DAILY 02/07/15 [History] Loratadine 10 mg PO QAM 06/28/16 [History] Montelukast Sodium [Singulair] 10 mg PO DAILY 06/28/16 [History] Omeprazole [PriLOSEC] 20 mg PO HS 06/28/16 [History] Memantine HCl [Namenda Xr] 28 mg PO DAILY 07/15/16 [History] risperiDONE [RisperDAL] 1 mg PO HS 08/16/16 [History] Famotidine [Pepcid] 20 mg PO DAILY 09/03/16 [History] glipiZIDE [Glucotrol] 5 mg PO DAILY 09/03/16 [History] Sertraline [Zoloft] 50 mg PO QAM 11/22/16 [History] Cefuroxime Axetil [Ceftin] 500 mg PO BID #20 tab 03/22/17 [Rx] HYDROcodone/APAP 5-325MG [[place] 5-325] 1 tab PO Q4HR PRN #40 tab 03/22/17 [Rx] Mirtazapine 7.5 mg PO HS #30 tablet 03/22/17 [Rx] metroNIDAZOLE [Flagyl] 500 mg PO TID #30 tab 03/22/17 [Rx] risperiDONE [RisperDAL] 1 mg PO HS #30 tab 03/22/17 [Rx] Follow up Appointment(s)/Referral(s): Jerry Golden DO [Primary Care Provider] - 1 Week (one week after DC from [facility]) Ricco Pinto MD [STAFF PHYSICIAN] - 1 Week Jose Juan Leal MD [STAFF PHYSICIAN] - 1 Week Patient Instructions/Handouts: Diverticulitis (GEN), Colostomy Care (DC), Colostomy Care (GEN) Activity/Diet/Wound Care/Special Instructions: Last Colostomy Apppliance change 03/19/2017 Current ostomy supplies: Convatec Convatec moldable flange #[id number] (Pt will have three for transfer to Rehab ) Convatec pouch # [id number] (3) with filter Ostomy powder (1) Skin preps (10) Ms Carrero will need to be reevaluated for potential disposables or pre cut pouches and flanges in 3 weeks or sooner with Rehab facility . Discharge Disposition: TRANSFER TO SNF/ECF
--- NOTE | 2017-03-22 14:00 | P.PN ---
Subjective Patient is seen in follow-up for acute kidney injury. Her baseline creatinine is 1 and has been in the range of 1.8-1.9. Patient presented with abdominal pain and was noted to have an abscess. She underwent exploratory laparotomy with lysis of adhesions this admission. Cultures have been positive for E. coli. She is maintained on antibiotics per infectious disease recommendations. Her diet has gradually been advanced to soft and is tolerating it well. She is nonoliguric. No vomiting. Casarez catheter has been discontinued and she has been voiding. Creatinine is down to 1.66 today. Vital signs are stable. General: The patient appeared well nourished and normally developed. HEENT: Head exam is unremarkable. Neck is without jugular venous distension. LUNGS: Lungs are clear to auscultation and percussion. Breath sounds decreased. HEART: Rate and Rhythm are regular. First and second heart sounds normal. No murmurs, rubs or gallops. ABDOMEN: Abdominal exam reveals normal bowel sounds. Generalized tenderness. Bowel sounds present. EXTREMITITES: No clubbing, cyanosis, or edema. Objective - Vital Signs Vital signs: Vital Signs Temp 98.5 F 03/22/17 07:36 Pulse 90 03/22/17 12:03 Resp 20 03/22/17 08:00 BP 146/73 03/22/17 07:23 Pulse Ox 100 03/22/17 07:23 Intake & Output 03/21/17 03/22/17 03/22/17 18:59 06:59 18:59 Intake Total 1000 Output Total 420 470 400 Balance -420 530 -400 Weight 66.9 kg 69.5 kg Intake: IV 550 Ampicillin-Sulbactam 3 gm 100 In Sodium Chloride 0.9% 100 ml @ 100 mls/hr IVPB Q8H GABRIEL Rx#:[id number] Sodium Chloride 0.9% 1, 450 000 ml @ 50 mls/hr IV . Q20H GABRIEL Rx#:[id number] Oral 450 Output: Drainage 20 20 Right Lower Abdomen 20 20 Urine 400 Stool 400 450 Other: Voiding Method Diaper Bedside Commode Bedside Commode Diaper Diaper Incontinent Incontinent # Voids 1 2 # Bowel Movements 1 - Labs CBC & Chem 7: 03/21/17 06:24 03/22/17 07:02 Labs: Abnormal Lab Results - Last 24 Hours (Table) 1003/21/17 03/22/17 Range/Units 17:33 20:02 07:02 Chloride 117 H (98-107) mmol/L Carbon Dioxide 16 L (22-30) mmol/L Creatinine 1.66 H (0.52-1.04) mg/dL Glucose 112 H (74-99) mg/dL POC Glucose (mg/dL) 117 H 110 H (75-99) mg/dL Calcium 8.0 L (8.4-10.2) mg/dL Magnesium 1.4 L (1.6-2.3) mg/dL Total Bilirubin 0.1 L (0.2-1.3) mg/dL Total Protein 4.9 L (6.3-8.2) g/dL Albumin 2.3 L (3.5-5.0) g/dL 03/22/17 03/22/17 Range/Units 07:08 11:25 Chloride (98-107) mmol/L Carbon Dioxide (22-30) mmol/L Creatinine (0.52-1.04) mg/dL Glucose (74-99) mg/dL POC Glucose (mg/dL) 120 H 172 H (75-99) mg/dL Calcium (8.4-10.2) mg/dL Magnesium (1.6-2.3) mg/dL Total Bilirubin (0.2-1.3) mg/dL Total Protein (6.3-8.2) g/dL Albumin (3.5-5.0) g/dL Assessment and Plan Plan: Assessment: #1. Nonoliguric acute kidney injury secondary to ischemic ATN secondary to sepsis. Baseline creatinine is 1 peaked at 2.03 this admission. Stable in the range of 1.8-1.9 last few days - down to 1.66 today. Urinalysis is quite benign. She also received IV contrast dye on March 11. No evidence of hydronephrosis on CAT scan. Urine eosinophils negative. #2.. Diverticular abscess status post exploratory laparotomy, lysis of adhesions, small bowel resection, and sigmoid colectomy with end colostomy. #3. Hypokalemia secondary to poor oral intake. Magnesium replete. #4. Metabolic acidosis secondary to acute kidney injury and IV fluids. Expect improvement as IV fluids discontinued. #5. Hypomagnesemia related to poor nutritional status. Plan: She is off all IV fluids. Increase oral sodium bicarbonate to 650 mg 3 times daily. Magnesium being replaced. Avoid nephrotoxic agents and hypotensive episodes. Antibiotics per infectious disease recommendations. Potential subacute rehab upon discharge - she will need to get a repeat basic metabolic panel checked within 2-3 days of discharge and follow-up as an outpatient in the next 1-2 weeks.
[2017-03-22 14:51] VITALS: BP 137/74; RESP 16; TEMP 98.3
[2017-03-22] MEDS ORDERED: SODIUM BICARBONATE TAB 650 MG TAB PO SCH (16:00)
[2017-03-22 16:46] LABS: Glucose,Whole Blood 126 mg/dL (75-99)
--- NOTE | 2017-03-22 16:50 | PN ---
PROGRESS NOTE DATE OF SERVICE: 03/22/2017. REASON FOR FOLLOW UP: Abdominal abscess from ruptured diverticulitis. INTERVAL HISTORY: The patient is afebrile she is breathing comfortably. Denies any chest pain, abdominal pain, nausea, vomiting. Tolerating her diet. No worsening diarrhea. PHYSICAL EXAMINATION: Blood pressure 137/74 with a pulse of 89, temperature 98.3, she is 100% on room air. General description is an elderly female up in the chair in no distress. Respiratory system unlabored breathing. Clear to auscultation anteriorly. Heart S1, S2. Regular rate and rhythm. Abdomen is soft, no tenderness. LAB: Creatinine 1.66. No CBC was done today. DIAGNOSTIC IMPRESSION AND PLAN: Patient with E coli anaerobic gram-negative bacilli, abdominal abscess status post drainage. The patient did show overall improvement on the Unasyn, Flagyl. Plan to finish therapy with p.o. Ceftin and Flagyl combination for another 10 days with close outpatient followup. MMODL / IJN: [id number] /
[2017-03-22 17:14] VITALS: PULSE 88
== END 2017-03-22 18:12 | DRG 853 ==
LOC: EC 11:03 → 4MS4W 18:56 → 6ICU 03-13 16:29 → 3SUR 03-15 23:12
PROVIDERS: ADMIT Surgery; ATTEND Surgery
PROC: 0DTN0ZZ Resection of Sigmoid Colon, Open Approach (ICD-10-PCS; 2017-03-13)
PROC: 0D1N4Z4 Bypass Sigmoid Colon to Cutaneous, Percutaneous Endoscopic Approach (ICD-10-PCS; 2017-03-13)
PROC: 0DB80ZZ Excision of Small Intestine, Open Approach (ICD-10-PCS; principal; 2017-03-13 14:05)
DX: A41.9 Sepsis, unspecified organism (principal); N17.0 Acute kidney failure with tubular necrosis; E87.2 Acidosis; K57.20 Diverticulitis of large intestine with perforation and abscess without bleeding; E11.51 Type 2 diabetes mellitus with diabetic peripheral angiopathy without gangrene; E11.649 Type 2 diabetes mellitus with hypoglycemia without coma; J98.11 Atelectasis; L03.311 Cellulitis of abdominal wall; T81.4XXA Infection following a procedure, initial encounter; G20 Parkinson's disease; I50.9 Heart failure, unspecified; E83.42 Hypomagnesemia; F02.80 Dementia in other diseases classified elsewhere, unspecified severity, without behavioral disturbance, psychotic disturbance, mood disturbance, and anxiety; I25.10 Atherosclerotic heart disease of native coronary artery without angina pectoris; D64.9 Anemia, unspecified; E87.6 Hypokalemia; R53.81 Other malaise; J45.909 Unspecified asthma, uncomplicated; K21.9 Gastro-esophageal reflux disease without esophagitis; E78.5 Hyperlipidemia, unspecified; Z96.651 Presence of right artificial knee joint; G47.33 Obstructive sleep apnea (adult) (pediatric); F31.9 Bipolar disorder, unspecified; F40.240 Claustrophobia; R48.0 Dyslexia and alexia; H91.90 Unspecified hearing loss, unspecified ear; B96.89 Other specified bacterial agents as the cause of diseases classified elsewhere; R01.1 Cardiac murmur, unspecified; B96.29 Other Escherichia coli [E. coli] as the cause of diseases classified elsewhere; R32 Unspecified urinary incontinence; K66.0 Peritoneal adhesions (postprocedural) (postinfection); M19.90 Unspecified osteoarthritis, unspecified site; R26.9 Unspecified abnormalities of gait and mobility; I25.2 Old myocardial infarction; Z79.899 Other long term (current) drug therapy; Z88.6 Allergy status to analgesic agent; Z88.1 Allergy status to other antibiotic agents; Z88.2 Allergy status to sulfonamides; Z88.8 Allergy status to other drugs, medicaments and biological substances; Z86.718 Personal history of other venous thrombosis and embolism; Z87.01 Personal history of pneumonia (recurrent); Z90.49 Acquired absence of other specified parts of digestive tract; Z90.710 Acquired absence of both cervix and uterus; Z90.89 Acquired absence of other organs; Z87.19 Personal history of other diseases of the digestive system; Z80.1 Family history of malignant neoplasm of trachea, bronchus and lung; Z81.8 Family history of other mental and behavioral disorders; Z82.49 Family history of ischemic heart disease and other diseases of the circulatory system
CPT/HCPCS: 36415; 36556; 36600; 71010; 71020; 74177; 80048; 80053; 81001; 81003; 82150; 82805; 83036; 83605; 83690; 83735; 83880; 84100; 84132; 85025; 85610; 85730; 86140; 87040; 87070; 87075; 87077; 87086; 87186; 87205; 87324; 88302; 88307; 93005; 94002; 94003; 94640; 96361; 96365; 96375; 99285

== ENCOUNTER 2017-04-07 14:26 | Inpatient (IN) | payer MEDICARE, OTHER ==
--- NOTE | 2017-04-07 14:53 | ED ---
General Adult HPI - General Chief complaint: Altered Mental Status Stated complaint: Altered Mental Time Seen by Provider: 04/07/17 14:36 Source: patient, EMS, RN notes reviewed Mode of arrival: EMS Limitations: altered mental status - History of Present Illness Initial comments: Patient is a pleasant 66-year-old female presenting to the emergency Department with complaints of reported altered mental status. No family or executive asst is present to help provide history. Patient questions if she may have passed out earlier. Patient states she feels fine now and has no complaints. Patient feels like she was "taking x-rays" when she passed out. No chest pain. No weakness. No dyspnea. - Related Data Home Medications Medication Instructions Recorded Confirmed Albuterol Sulfate [Proair Hfa] 2 puff INHALATION RT-QID PRN 06/24/14 04/07/17 Donepezil [Aricept] 10 mg PO DAILY 02/07/15 04/07/17 Loratadine 10 mg PO DAILY 06/28/16 04/07/17 Montelukast Sodium [Singulair] 10 mg PO HS 06/28/16 04/07/17 Omeprazole [PriLOSEC] 20 mg PO HS 06/28/16 04/07/17 Memantine HCl [Namenda Xr] 28 mg PO HS 07/15/16 04/07/17 risperiDONE [RisperDAL] 1 mg PO HS 08/16/16 04/07/17 glipiZIDE [Glucotrol] 5 mg PO AC-BRKFST 09/03/16 04/07/17 Sertraline [Zoloft] 50 mg PO DAILY 11/22/16 04/07/17 Albuterol Nebulized [Ventolin 2.5 mg INHALATION RT-QID 04/07/17 04/07/17 Nebulized] Famotidine 10 mg PO DAILY 04/07/17 04/07/17 HYDROcodone/APAP 5-325MG [[place] 1 - 2 tab PO Q4HR PRN 04/07/17 04/07/17 5-325] Potassium Chloride ER [K-Dur 10] 10 meq PO HS 04/07/17 04/07/17 Previous Rx's Medication Instructions Recorded Mirtazapine 7.5 mg PO HS #30 tablet 03/22/17 Allergies Allergy/AdvReac Type Severity Reaction Status Date / Time codeine Allergy Rash/Hives Verified 04/07/17 15:59 lorazepam [From Ativan] Allergy Rash/Hives Verified 04/07/17 15:59 oxaprozin [From Daypro] Allergy Rash/Hives Verified 04/07/17 15:59 Sulfa (Sulfonamide Allergy Rash/Hives Verified 04/07/17 15:59 Antibiotics) baclofen AdvReac Unknown Psychotic Verified 04/07/17 15:59 Episode cyclobenzaprine HCl AdvReac Confusion Verified 04/07/17 15:59 [From Flexeril] Review of Systems ROS Statement: Those systems with pertinent positive or pertinent negative responses have been documented in the HPI. ROS Other: All systems not noted in ROS Statement are negative. Constitutional: Denies: fever Eyes: Denies: eye pain ENT: Denies: ear pain Respiratory: Denies: cough Cardiovascular: Denies: chest pain Endocrine: Denies: fatigue Gastrointestinal: Denies: abdominal pain Genitourinary: Denies: dysuria Musculoskeletal: Denies: back pain Skin: Denies: rash Neurological: Denies: weakness Past Medical History Past Medical History: Asthma, Coronary Artery Disease (CAD), Heart Failure, Dementia, Diabetes Mellitus, Deep Vein Thrombosis (DVT), GERD/Reflux, Hyperlipidemia, Myocardial Infarction ([place]), Osteoarthritis (OA), Pneumonia, Renal Disease, Seizure Disorder, Sleep Apnea/CPAP/BIPAP, Vascular Disorder Additional Past Medical History / Comment(s): Bronchial asthma, dementia, diabetes mellitus, hyperlipidemia, coronary artery disease with previous myocardial infarction, seizure disorder many years back and the patient has not been on seizure medication. 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 Last Myocardial Infarction Date:: 1991 History of Any Multi-Drug Resistant Organisms: None Reported Past Surgical History: Adenoidectomy, Appendectomy, Bowel Resection, Cholecystectomy, Hernia Repair, Hysterectomy, Joint Replacement, Orthopedic Surgery, Tonsillectomy Additional Past Surgical History / Comment(s): exploratory laparotomy and a small bowel resection (2017), partial colon resection with colostomy then reversal, SILVERIO KNEE ARTHROSCOPY, Right KNEE REPLACEMENT, EGDs and colonoscopies, lipomas off back, cyst off spine, eye duct surgery Past Anesthesia/Blood Transfusion Reactions: Previous Problems w/ Anesthesia, Motion Sickness Additional Past Anesthesia/Blood Transfusion Reaction / Comment(s): DIFFICULTY WAKING UP. CLAUSTERPHOBIC Past Psychological History: Anxiety, Bipolar Smoking Status: Never smoker Past Alcohol Use History: None Reported Past Drug Use History: None Reported - Past Family History Father Family Medical History: Cancer Additional Family Medical History / Comment(s): Father had lung cancer. Mother Family Medical History: Congestive Heart Failure (CHF), Dementia, Myocardial Infarction ([place]) General Exam Limitations: altered mental status General appearance: alert, in no apparent distress Head exam: Present: atraumatic Eye exam: Present: normal appearance, PERRL ENT exam: Present: normal oropharynx Neck exam: Present: normal inspection, full ROM. Absent: tenderness, meningismus Respiratory exam: Present: normal lung sounds bilaterally Cardiovascular Exam: Present: regular rate, normal rhythm GI/Abdominal exam: Present: soft. Absent: tenderness Extremities exam: Present: normal inspection Neurological exam: Present: alert, altered, CN II-XII intact. Absent: motor sensory deficit Expanded Patient oriented to: Present: person. Absent: place, time Psychiatric exam: Present: normal affect, normal mood Skin exam: Present: normal color Course Vital Signs 04/07/17 04/07/17 14:29 16:00 Temperature 99.0 F Pulse Rate 86 90 Respiratory 20 20 Rate Blood Pressure 160/74 170/90 O2 Sat by Pulse 96 98 Oximetry - Reevaluation(s) Reevaluation #1: 04/07/17 15:27 Further history is taken from guardian who is also the sister. She is the guardian because patient has Parkinson's and dementia and bipolar. She states patient did have a proximal he 4 syncopal episodes today lasting 5-10 minutes. She feels patient is acting normal at this time. She states patient has had similar syncopal episodes previously associated with dehydration. She states patient was acting normal yesterday and symptoms all started today. 04/07/17 16:55 Patient is borderline sepsis criteria with respiratory rate at 20, pulse at 90. White blood cell count is 10.4. Lactic acid and blood cultures have been added. IV antibiotics have been started. Patient reexamined. Family updated. Case discussed in detail with Dr. Coleman, who will admit for Dr. Golden. EKG Findings - EKG Comments: EKG Findings:: Normal sinus rhythm 82. NC 168. QRS 78. QT 372. QTC 434. Left axis. Normal QRS. No acute ST change. Medical Decision Making - Lab Data Result diagrams: 04/07/17 15:03 04/07/17 15:03 Lab Results 04/07/17 04/07/17 04/07/17 Range/Units 15:03 15:03 15:03 WBC 10.4 (3.8-10.6) k/uL RBC 4.04 (3.80-5.40) m/uL Hgb 11.0 L (11.4-16.0) gm/dL Hct 36.0 (34.0-46.0) % MCV 89.1 (80.0-100.0) fL MCH 27.2 (25.0-35.0) pg MCHC 30.5 L (31.0-37.0) g/dL RDW 16.0 H (11.5-15.5) % Plt Count 253 (150-450) k/uL Neutrophils % 82 % Lymphocytes % 8 % Monocytes % 6 % Eosinophils % 2 % Basophils % 1 % Neutrophils # 8.5 H (1.3-7.7) k/uL Lymphocytes # 0.8 L (1.0-4.8) k/uL Monocytes # 0.6 (0-1.0) k/uL Eosinophils # 0.2 (0-0.7) k/uL Basophils # 0.1 (0-0.2) k/uL Hypochromasia Slight PT 10.7 (9.0-12.0) sec INR 1.1 (<1.2) APTT 24.3 (22.0-30.0) sec Sodium 146 H (137-145) mmol/L Potassium 3.4 L (3.5-5.1) mmol/L Chloride 111 H (98-107) mmol/L Carbon Dioxide 25 (22-30) mmol/L Anion Gap 10 mmol/L BUN 13 (7-17) mg/dL Creatinine 0.90 (0.52-1.04) mg/dL Est GFR (MDRD) Af Amer >60 (>60 ml/min/1.73 sqM) Est GFR (MDRD) Non-Af >60 (>60 ml/min/1.73 sqM) Glucose 62 L (74-99) mg/dL Calcium 9.0 (8.4-10.2) mg/dL Total Bilirubin 0.2 (0.2-1.3) mg/dL AST 24 (14-36) U/L ALT 29 (9-52) U/L Alkaline Phosphatase 104 (38-126) U/L Total Creatine Kinase (30-135) U/L CK-MB (CK-2) (0.0-2.4) ng/mL CK-MB (CK-2) Rel Index Troponin I (0.000-0.034) ng/mL Total Protein 6.6 (6.3-8.2) g/dL Albumin 3.5 (3.5-5.0) g/dL Urine Color Urine Appearance (Clear) Urine pH (5.0-8.0) Ur Specific [place] (1.001-1.035) Urine Protein (Negative) Urine Glucose (UA) (Negative) Urine Ketones (Negative) Urine Blood (Negative) Urine Nitrite (Negative) Urine Bilirubin (Negative) Urine Urobilinogen (<2.0) mg/dL Ur Leukocyte Esterase (Negative) Urine RBC (0-5) /hpf Urine WBC (0-5) /hpf Urine WBC Clumps (None) /hpf Ur Squamous Epith Cells (0-4) /hpf Amorphous Sediment (None) /hpf Urine Bacteria (None) /hpf Urine Mucus (None) /hpf Urine Yeast (Budding) (None) /hpf Urine Opiates Screen (NotDetected) Ur Oxycodone Screen (NotDetected) Urine Methadone Screen (NotDetected) Ur Propoxyphene Screen (NotDetected) Ur Barbiturates Screen (NotDetected) U Tricyclic Antidepress (NotDetected) Ur Phencyclidine Scrn (NotDetected) Ur Amphetamines Screen (NotDetected) U Methamphetamines Scrn (NotDetected) U Benzodiazepines Scrn (NotDetected) Urine Cocaine Screen (NotDetected) U Marijuana (THC) Screen (NotDetected) 04/07/17 04/07/17 Range/Units 15:03 16:10 WBC (3.8-10.6) k/uL RBC (3.80-5.40) m/uL Hgb (11.4-16.0) gm/dL Hct (34.0-46.0) % MCV (80.0-100.0) fL MCH (25.0-35.0) pg MCHC (31.0-37.0) g/dL RDW (11.5-15.5) % Plt Count (150-450) k/uL Neutrophils % % Lymphocytes % % Monocytes % % Eosinophils % % Basophils % % Neutrophils # (1.3-7.7) k/uL Lymphocytes # (1.0-4.8) k/uL Monocytes # (0-1.0) k/uL Eosinophils # (0-0.7) k/uL Basophils # (0-0.2) k/uL Hypochromasia PT (9.0-12.0) sec INR (<1.2) APTT (22.0-30.0) sec Sodium (137-145) mmol/L Potassium (3.5-5.1) mmol/L Chloride (98-107) mmol/L Carbon Dioxide (22-30) mmol/L Anion Gap mmol/L BUN (7-17) mg/dL Creatinine (0.52-1.04) mg/dL Est GFR (MDRD) Af Amer (>60 ml/min/1.73 sqM) Est GFR (MDRD) Non-Af (>60 ml/min/1.73 sqM) Glucose (74-99) mg/dL Calcium (8.4-10.2) mg/dL Total Bilirubin (0.2-1.3) mg/dL AST (14-36) U/L ALT (9-52) U/L Alkaline Phosphatase (38-126) U/L Total Creatine Kinase 87 (30-135) U/L CK-MB (CK-2) 0.8 (0.0-2.4) ng/mL CK-MB (CK-2) Rel Index 0.9 Troponin I <0.012 (0.000-0.034) ng/mL Total Protein (6.3-8.2) g/dL Albumin (3.5-5.0) g/dL Urine Color Yellow Urine Appearance Cloudy H (Clear) Urine pH 6.0 (5.0-8.0) Ur Specific [place] 1.015 (1.001-1.035) Urine Protein Trace H (Negative) Urine Glucose (UA) Negative (Negative) Urine Ketones Negative (Negative) Urine Blood Trace H (Negative) Urine Nitrite Negative (Negative) Urine Bilirubin Negative (Negative) Urine Urobilinogen <2.0 (<2.0) mg/dL Ur Leukocyte Esterase Large H (Negative) Urine RBC 4 (0-5) /hpf Urine WBC 148 H (0-5) /hpf Urine WBC Clumps Occasional H (None) /hpf Ur Squamous Epith Cells 12 H (0-4) /hpf Amorphous Sediment Rare H (None) /hpf Urine Bacteria Occasional H (None) /hpf Urine Mucus Occasional H (None) /hpf Urine Yeast (Budding) Moderate H (None) /hpf Urine Opiates Screen Not Detected (NotDetected) Ur Oxycodone Screen Not Detected (NotDetected) Urine Methadone Screen Not Detected (NotDetected) Ur Propoxyphene Screen Not Detected (NotDetected) Ur Barbiturates Screen Not Detected (NotDetected) U Tricyclic Antidepress Not Detected (NotDetected) Ur Phencyclidine Scrn Not Detected (NotDetected) Ur Amphetamines Screen Not Detected (NotDetected) U Methamphetamines Scrn Not Detected (NotDetected) U Benzodiazepines Scrn Not Detected (NotDetected) Urine Cocaine Screen Not Detected (NotDetected) U Marijuana (THC) Screen Not Detected (NotDetected) - Radiology Data Radiology results: report reviewed (Computed tomography scan of the brain shows some limitation secondary to artifact. No definite acute intercranial abnormality. Mild ventriculomegally unchanged.), image reviewed (Two-view chest x-ray shows borderline heart size and mild interstitial changes.) Disposition Clinical Impression: Syncope, Urinary tract infection Disposition: ADMITTED IP TO THIS HOSP Decision Time: 17:00
[2017-04-07 15:31] LABS: Basophils # (A) 0.1 k/uL (0-0.2); Basophils % (A) 1 %; CH 27.3; CHCM 30.7; Eosinophils # (A) 0.2 k/uL (0-0.7); Eosinophils % (A) 2 %; HDW 2.47; Hypochromasia Slight; Luc # (Auto) 0.11; Luc % (Auto) 1; Lymphocytes # (A) 0.8 k/uL (1.0-4.8); Lymphocytes % (A) 8 %; MCH 27.2 pg (25.0-35.0); MCHC 30.5 g/dL (31.0-37.0); MCV 89.1 fL (80.0-100.0); Mean Platelet Volume 7.4; Monocytes # (A) 0.6 k/uL (0-1.0); Monocytes % (A) 6 %; Neutrophils # (A) 8.5 k/uL (1.3-7.7); Neutrophils % (A) 82 %; RBC 4.04 m/uL (3.80-5.40); WBC 10.4 k/uL (3.8-10.6); WBC (Perox) 11.26
[2017-04-07 15:41] LABS: ALT 29 U/L (9-52); AST 24 U/L (14-36); Alkaline Phosphatase 104 U/L (38-126); Anion Gap 10 mmol/L; Blood Urea Nitrogen 13 mg/dL (7-17); Carbon Dioxide 25 mmol/L (22-30); Chloride 111 mmol/L (98-107); Glucose 62 mg/dL (74-99); Non-African American GFR(MDRD) >60 (>60 ml/min/1.73 sqM); Potassium 3.4 mmol/L (3.5-5.1); Sodium 146 mmol/L (137-145); Total Bilirubin 0.2 mg/dL (0.2-1.3); Total Protein 6.6 g/dL (6.3-8.2)
[2017-04-07 15:44] LABS: INR 1.1 (<1.2); Partial Thromboplastin Time 24.3 sec (22.0-30.0); Prothrombin Time 10.7 sec (9.0-12.0)
[2017-04-07 15:50] LABS: Creatine Kinase 87 U/L (30-135)
[2017-04-07 16:03] LABS: Creatine Kinase MB 0.8 ng/mL (0.0-2.4); Troponin I <0.012 ng/mL (0.000-0.034)
--- NOTE | 2017-04-07 16:23 | CT ---
EXAMINATION TYPE: CT brain wo con DATE OF EXAM: 04/07/2017 COMPARISON: 09/03/2016 HISTORY: 66-year-old female confusion, Altered mental status. History of parkinson's TECHNIQUE: Examination was done in axial plane without intravenous contrast. Coronal and sagittal r econstructions performed. CT DLP: 1177 mGycm Automated exposure control for dose reduction was used. FINDINGS: Prominent calvarial artifacts limits assessment. Within this limitation, there is no evidence of acu te intracranial hemorrhage, acute ischemic changes, mass, mass-effect, or extra-axial fluid collectio n. There is no effacement of cerebral sulci or basal subarachnoid cisterns. There is no midline donavon ft. Hernandez-white matter distinction is preserved. Mild ventriculomegaly is unchanged likely secondary to central cerebral atrophy. Mild patchy perivent ricular white matter hypodensities. Normal variant hyperostosis frontalis interna. Paranasal sinuses and mastoid air cells are well pneumatized. Orbits and globes are intact. Cerumen w ithin the external auditory canals. IMPRESSION: 1. Exam limitations due to prominent calvarial artifacts. No definite acute intracranial abnormality seen within this limitation. 2. Mild ventriculomegaly is unchanged likely secondary to central cerebral atrophy.
[2017-04-07 16:33] LABS: Amorphous Sediment,Urine Rare /hpf; Appearance,Urine Cloudy (Clear); Bacteria,Urine Occasional /hpf; Bilirubin,Urine Negative (Negative); Glucose,Urine (UA) Negative (Negative); Ketones,Urine Negative (Negative); Leukocyte Esterase,Urine Large (Negative); Mucus,Urine Occasional /hpf; Nitrite,Urine Negative (Negative); Particle Count 8025; Protein,Urine Trace (Negative); RBC,Urine 4 /hpf (0-5); Specific Gravity,Urine 1.015 (1.001-1.035); Squamous Epithelial Cell,Urine 12 /hpf (0-4); UA Billing (MACRO vs. MICRO) MICRO; Urobilinogen,Urine <2.0 mg/dL (<2.0); WBC,Urine 148 /hpf (0-5)
--- NOTE | 2017-04-07 16:39 | XR ---
EXAMINATION TYPE: XR chest 2V DATE OF EXAM: 04/07/2017 COMPARISON: 03/22/2017 HISTORY: 66-year-old female confusion, altered mental status TECHNIQUE: Frontal and lateral views FINDINGS: Heart is upper limits of normal in size. Perihilar densities and peribronchial cuffing. No pleural ef fusion. IMPRESSION: Borderline heart size and interstitial changes/peribronchial cuffing. Correlate to exclude mild CHF. Bronchitis or chronic asthma are additional considerations.
[2017-04-07] MEDS ORDERED: cefTRIAXone IN SWFI 1,000 MG/10 ML SYRINGE IVP STA (16:48)
[2017-04-07] MEDS ORDERED: NALOXONE 0.4 MG/ML 1 ML VIAL IV PRN (17:01)
[2017-04-07] MEDS ORDERED: SODIUM CHLORIDE 0.9% 1,000 ML IV SCH (17:15)
[2017-04-07] MEDS ORDERED: ALBUTEROL NEBULIZED 2.5 MG/3 ML INHALATION PRN (18:07)
[2017-04-07] MEDS ORDERED: ACETAMINOPHEN TAB 325 MG TAB PO PRN (18:11)
[2017-04-07 18:45] VITALS: BMI 24.3
[2017-04-07] MEDS: PANTOPRAZOLE 40 MG TABLET PO SCH (20:17)
[2017-04-07] MEDS: POTASSIUM CHLORIDE ER 10 MEQ TAB.ER.PRT PO SCH (20:17)
[2017-04-07] MEDS: MEMANTINE 10 MG TAB PO SCH (20:17)
[2017-04-07] MEDS: MONTELUKAST 10 MG TAB PO SCH (20:17)
[2017-04-07 20:48] LABS: Glucose,Whole Blood 83 mg/dL (75-99)
[2017-04-07] MEDS ORDERED: cefTRIAXone IN SWFI 1,000 MG/10 ML SYRINGE IVP SCH (21:00)
[2017-04-07] MEDS: ALBUTEROL NEBULIZED 2.5 MG/3 ML INHALATION SCH (21:04)
[2017-04-07] MEDS: INSULIN LISPRO (humaLOG) 300 UNIT/3 ML VIAL SQ SCH (21:06)
[2017-04-07] MEDS ORDERED: SODIUM CHLORIDE 0.45% 1,000 ML IV SCH (22:30)
--- NOTE | 2017-04-07 22:30 | P.HPIM ---
History of Present Illness H&P Date: 04/07/17 Chief Complaint: Altered mental status Patient is a 66 old female with a known history of dementia, bipolar disorder, diabetes type 2 history of DVT, obstructive sleep apnea on CPAP, and previous history of DVT, history of small bowel resection and colostomy bag placement and multiple other medical problems was brought to the hospital due to altered mental status. Patient was disoriented on admission. Patient is not sure whether she passed out or not. Patient is a very poor historian. Patient does have underlying dementia and bipolar disorder. Most of the history was taken from the medical records and ER evaluation. Currently patient denied any chest pain or short of breath. No fever no chills. Patient usually walks to walk at home. Uses diapers. No recent illnesses. CT head showed no changes from previous changes with cerebral atrophy Chest x-ray showed no pneumonia. Correlate for mild CHF EKG normal sinus rhythm. Review of Systems Complete review of systems could not obtain from the patient. Except as above in the HPI Past Medical History Past Medical History: Asthma, Coronary Artery Disease (CAD), Heart Failure, Dementia, Diabetes Mellitus, Deep Vein Thrombosis (DVT), GERD/Reflux, Hyperlipidemia, Myocardial Infarction ([place]), Osteoarthritis ([place]), Pneumonia, Renal Disease, Seizure Disorder, Sleep Apnea/CPAP/BIPAP, Vascular Disorder Additional Past Medical History / Comment(s): Bronchial asthma, dementia, diabetes mellitus, hyperlipidemia, coronary artery disease with previous myocardial infarction, seizure disorder many years back and the patient has not been on seizure medication. 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 Last Myocardial Infarction Date:: 1991 History of Any Multi-Drug Resistant Organisms: None Reported Past Surgical History: Adenoidectomy, Appendectomy, Bowel Resection, Cholecystectomy, Hernia Repair, Hysterectomy, Joint Replacement, Orthopedic Surgery, Tonsillectomy Additional Past Surgical History / Comment(s): exploratory laparotomy and a small bowel resection (2016), partial colon resection with colostomy then reversal, SILVERIO KNEE ARTHROSCOPY, Right KNEE REPLACEMENT, EGDs and colonoscopies, lipomas off back, cyst off spine, eye duct surgery Past Anesthesia/Blood Transfusion Reactions: Previous Problems w/ Anesthesia, Motion Sickness Additional Past Anesthesia/Blood Transfusion Reaction / Comment(s): DIFFICULTY WAKING UP. CLAUSTERPHOBIC Past Psychological History: Anxiety, Bipolar Additional Psychological History / Comment(s): DYSLEXIA but is able to read and write with some difficulty. Pt resides with her sisters, Reny who is also her legal guardian and other sister Michelle. They are her caretakers. Pt uses a walker to ambulate. She does not drive, Michelle takes her to appts. pt also has dementia and is deaf Smoking Status: Never smoker Past Alcohol Use History: None Reported Past Drug Use History: None Reported - Past Family History Father Family Medical History: Cancer Additional Family Medical History / Comment(s): Father had lung cancer. Mother Family Medical History: Congestive Heart Failure (CHF), Dementia, Myocardial Infarction ([place]) Medications and Allergies Home Medications Medication Instructions Recorded Confirmed Type Albuterol Sulfate [Proair Hfa] 2 puff INHALATION RT-QID PRN 06/24/14 04/07/17 History Donepezil [Aricept] 10 mg PO DAILY 02/07/15 04/07/17 History Loratadine 10 mg PO DAILY 06/28/16 04/07/17 History Montelukast Sodium [Singulair] 10 mg PO HS 06/28/16 04/07/17 History Omeprazole [PriLOSEC] 20 mg PO HS 06/28/16 04/07/17 History Memantine HCl [Namenda Xr] 28 mg PO HS 07/15/16 04/07/17 History risperiDONE [RisperDAL] 1 mg PO HS 08/16/16 04/07/17 History glipiZIDE [Glucotrol] 5 mg PO AC-BRKFST 09/03/16 04/07/17 History Sertraline [Zoloft] 50 mg PO DAILY 11/22/16 04/07/17 History Mirtazapine 7.5 mg PO HS #30 tablet 03/22/17 04/07/17 Rx Albuterol Nebulized [Ventolin 2.5 mg INHALATION RT-QID 04/07/17 04/07/17 History Nebulized] Famotidine 10 mg PO DAILY 04/07/17 04/07/17 History HYDROcodone/APAP 5-325MG [[place] 1 - 2 tab PO Q4HR PRN 04/07/17 04/07/17 History 5-325] Potassium Chloride ER [K-Dur 10] 10 meq PO HS 04/07/17 04/07/17 History Allergies Allergy/AdvReac Type Severity Reaction Status Date / Time codeine Allergy Rash/Hives Verified 04/07/17 15:59 lorazepam [From Ativan] Allergy Rash/Hives Verified 04/07/17 15:59 oxaprozin [From Daypro] Allergy Rash/Hives Verified 04/07/17 15:59 Sulfa (Sulfonamide Allergy Rash/Hives Verified 04/07/17 15:59 Antibiotics) baclofen AdvReac Unknown Psychotic Verified 04/07/17 15:59 Episode cyclobenzaprine HCl AdvReac Confusion Verified 04/07/17 15:59 [From Flexeril] Physical Exam Vitals: Vital Signs Temp Pulse Pulse Resp BP BP Pulse Ox 04/07/17 21:13 72 04/07/17 21:07 72 04/07/17 18:35 166/75 04/07/17 18:15 97.8 F 80 20 184/81 95 04/07/17 17:30 98.1 F 88 20 168/75 98 04/07/17 17:21 97.8 F 76 18 166/75 95 04/07/17 17:00 89 20 173/74 98 04/07/17 16:00 90 20 170/90 98 04/07/17 14:29 99.0 F 86 20 160/74 96 Intake and Output 04/07/17 04/07/17 04/07/17 06:59 14:59 22:59 Intake Total 0 Balance 0 Intake: Intake, IV Titration 0 Amount Sodium Chloride 0.9% 1, 0 000 ml @ 20 mls/hr IV . Q24H GABRIEL Rx#:[id number] Oral 0 Other: # Voids 0 Weight 56.699 kg 56.6 kg Patient Weight 04/08/17 06:59 Weight 56.6 kg PHYSICAL EXAMINATION: Patient is lying in the bed comfortably, no acute distress, awake alert but not oriented HEENT: Normocephalic. Neck is supple. Pupils reactive. Nostrils clear. Oral cavity is dry. Ears reveal no drainage. Neck reveals no JVD, carotid bruits, or thyromegaly. CHEST EXAMINATION: Trachea is central. Symmetrical expansion. Diminished breath sounds bilateral basally CARDIAC: Normal S1, S2 with no gallops. No murmurs ABDOMEN: Soft. Nontender. Bowel sounds normal. No organomegaly. No abdominal bruits. Extremities: reveal no edema. No clubbing or cyanosis Neurologically awake, alert. Able to move all extremities Skin: No rash or skin lesions. Psychiatric: Operative. Could not be assessed Musculoskeletal: No joint swelling or deformity. Normal range of motion. Results CBC & Chem 7: 04/07/17 15:03 04/07/17 15:03 Labs: Abnormal Lab Results - Last 24 Hours (Table) 04/07/17 04/07/17 04/07/17 Range/Units 15:03 15:03 16:10 Hgb 11.0 L (11.4-16.0) gm/dL MCHC 30.5 L (31.0-37.0) g/dL RDW 16.0 H (11.5-15.5) % Neutrophils # 8.5 H (1.3-7.7) k/uL Lymphocytes # 0.8 L (1.0-4.8) k/uL Sodium 146 H (137-145) mmol/L Potassium 3.4 L (3.5-5.1) mmol/L Chloride 111 H (98-107) mmol/L Glucose 62 L (74-99) mg/dL Urine Appearance Cloudy H (Clear) Urine Protein Trace H (Negative) Urine Blood Trace H (Negative) Ur Leukocyte Esterase Large H (Negative) Urine WBC 148 H (0-5) /hpf Urine WBC Clumps Occasional H (None) /hpf Ur Squamous Epith Cells 12 H (0-4) /hpf Amorphous Sediment Rare H (None) /hpf Urine Bacteria Occasional H (None) /hpf Urine Mucus Occasional H (None) /hpf Urine Yeast (Budding) Moderate H (None) /hpf Thrombosis Risk Factor Assmnt - DVT/VTE Prophylaxis DVT/VTE Prophylaxis: Pharmacologic Prophylaxis ordered Assessment and Plan Assessment: #1 altered mental status/acute metabolic and serology secondary to volume depletion and infection #2 acute urinary tract infection #3 dementia #4 bipolar disorder history #5 hypertension uncontrolled # 6 diabetes type 2 [id number] #7 history of obstructive sleep apnea currently not using CPAP #8 degenerative joint disease #9 multiple medical problems and comorbid conditions Plan: Patient will be continued on gentle hydration. IV fluids will be changed from normal saline to half normal saline. Will follow up urine cultures. Continue the antibiotics in the form of ceftriaxone and follow closely. Continue the home medications. We will hold antidepressants and anxiolytics due to confusion and lethargy. Follow repeat labs tomorrow. PTOT consult. Further recommendations based on the clinical course. Prognosis is guarded. Time with Patient: Greater than 30
[2017-04-08 04:50] LABS: Basophils % (A) 1 %; CH 27.8; CHCM 30.7; Eosinophils # (A) 0.3 k/uL (0-0.7); Eosinophils % (A) 5 %; HCT 31.5 % (34.0-46.0); HDW 2.53; HGB 9.7 gm/dL (11.4-16.0); Hypochromasia Slight; Luc # (Auto) 0.07; Luc % (Auto) 1; Lymphocytes # (A) 1.3 k/uL (1.0-4.8); Lymphocytes % (A) 22 %; MCHC 30.8 g/dL (31.0-37.0); MCV 91.1 fL (80.0-100.0); Mean Platelet Volume 7.2; Monocytes # (A) 0.4 k/uL (0-1.0); Monocytes % (A) 7 %; Neutrophils # (A) 3.8 k/uL (1.3-7.7); Neutrophils % (A) 63 %; RBC 3.46 m/uL (3.80-5.40); RDW 14.7 % (11.5-15.5); WBC 5.9 k/uL (3.8-10.6); WBC (Perox) 6.27
[2017-04-08 05:10] LABS: Anion Gap 8 mmol/L; Blood Urea Nitrogen 11 mg/dL (7-17); Calcium 8.5 mg/dL (8.4-10.2); Carbon Dioxide 24 mmol/L (22-30); Chloride 110 mmol/L (98-107); Glucose 95 mg/dL (74-99); Non-African American GFR(MDRD) >60 (>60 ml/min/1.73 sqM); Potassium 3.4 mmol/L (3.5-5.1); Sodium 142 mmol/L (137-145)
[2017-04-08 06:03] LABS: Glucose,Whole Blood 97 mg/dL (75-99)
[2017-04-08] MEDS: INSULIN LISPRO (humaLOG) 300 UNIT/3 ML VIAL SQ SCH ×4 (06:32→22:29)
[2017-04-08] MEDS: glipiZIDE 5 MG TAB PO SCH (06:51)
[2017-04-08] MEDS: ALBUTEROL NEBULIZED 2.5 MG/3 ML INHALATION SCH ×4 (07:30→21:53)
[2017-04-08] MEDS: LORATADINE 10 MG TAB PO SCH (09:42)
[2017-04-08] MEDS: cefTRIAXone IN SWFI 1,000 MG/10 ML SYRINGE IVP SCH ×2 (09:42→22:29)
[2017-04-08] MEDS: DONEPEZIL 10 MG TAB PO SCH (09:43)
[2017-04-08] MEDS: MEMANTINE 10 MG TAB PO SCH ×2 (09:43→22:29)
[2017-04-08] MEDS: FAMOTIDINE 20 MG TAB PO SCH (09:43)
--- NOTE | 2017-04-08 10:31 | ECHOF ---
Referral Reason:syncope MEASUREMENTS -------- HEIGHT: 152.4 cm WEIGHT: 56.7 kg BP: 170/77 IVSd: 0.9 cm (0.6 - 1.1) LVIDd: 4.5 cm (3.9 - 5.3) LVPWd: 1.0 cm (0.6 - 1.1) IVSs: 1.1 cm LVIDs: 3.4 cm LVPWs: 1.1 cm LAESV Index (A-L): 26.05 ml/m Ao Diam: 2.8 cm (2.0 - 3.7) AV Cusp: 1.2 cm (1.5 - 2.6) LA Diam: 4.1 cm (2.7 - 3.8) MV EXCURSION: 13.818 mm (> 18.000) MV EF SLOPE: 44 mm/s (70 - 150) EPSS: 0.4 cm MV E Jose M: 0.50 m/s MV DecT: 219 ms MV A Jose M: 0.96 m/s MV E/A Ratio: 0.51 AR PHT: 395 ms RAP: 5.00 mmHg RVSP: 14.22 mmHg FINDINGS -------- Sinus rhythm. This was a technically adequate study. LV size, wall thickness and systolic function are normal, with an EF greater than 55%. The left urbano tricular size is normal. The right ventricle is normal in size. Normal LA size by volume 22+/-6 ml/m2. The right atrial size is normal. Aortic valve is trileaflet and is mildly thickened. There is mild aortic regurgitation. The mitral valve is normal. Mild mitral regurgitation is present. Mild tricuspid regurgitation present. There is no evidence of pulmonary hypertension. The right v entricular systolic pressure, as measured by Doppler, is 14.22mmHg. There is no pulmonic regurgitation present. The aortic root size is normal. There is no pericardial effusion. CONCLUSIONS -------- 1. Sinus rhythm. 2. LV size, wall thickness and systolic function are normal, with an EF greater than 55%. 3. The left ventricular size is normal. 4. Normal LA size by volume 22+/-6 ml/m2. 5. Aortic valve is trileaflet and is mildly thickened. 6. There is mild aortic regurgitation. 7. Mild mitral regurgitation is present. 8. Mild tricuspid regurgitation present. 9. There is no evidence of pulmonary hypertension. 10. There is no pulmonic regurgitation present. 11. The aortic root size is normal. 12. There is no pericardial effusion. INSTANT PRINT OPERATOR: Snow Campos RDCS
[2017-04-08] MEDS ORDERED: POTASSIUM CHLORIDE ER 20 MEQ TAB.ER PO STA (11:07)
--- NOTE | 2017-04-08 11:11 | P.PN ---
Subjective Progress Note Date: 04/08/17 66-year-old female who presented to the emergency room on 04/07/2017 due to altered mental status. Additional history was taken from the guardian, who is the patient's sister. She stated that the patient had a few syncopal episodes that lasted approximately 5 minutes. She states the patient has had these episodes before and they were due to dehydration. She was admitted to the hospital under the care of Dr. Golden. Consultations were placed to cardiology for evaluation of syncope. The patient has a history of coronary artery disease, congestive heart failure, diabetes mellitus, dementia, myocardial production, chronic renal disease, and obstructive sleep apnea. The patient has a history of expiratory laparotomy, lysis of adhesions, and small bowel resection in November 2016. She was recently hospitalized in March and underwent exploratory laparotomy, lysis of adhesions , small bowel resection, appendectomy, and sigmoid colectomy with end colostomy on 03/13/[address] Leal. In the emergency room, a CT of the brain was completed which was negative for an acute intracranial process. It did show mild ventriculomegaly which was unchanged from prior exams. A x-ray of the chest was completed which showed borderline heart size and interstitial changes, and possible mild congestive heart failure. A urinalysis revealed a urinary tract infection. A urine culture was not ordered, but the patient has since been placed on ceftriaxone. Troponins were negative 3. The patient was seen and examined at the bedside. She is very lethargic but arousable to verbal stimuli. She was unable to state the year. When asked where she was, the patient stated she was at [facility]. She denies pain or discomfort. She denies dizziness, but states she is slightly lightheaded. Spoke with nursing who states that patient has been sleeping most of the shift. She states she did eat her breakfast this morning. An echocardiogram and carotid ultrasound have been ordered. The patient's white count is 5.9. Hemoglobin 9.7. Sodium 142. Potassium 3.4. TSH was normal at 1.890. She remains on Rocephin 1000mg every 12 hours. She is afebrile. Blood pressure stable with the last reading of 133/71. She is maintaining an oxygen saturation greater than 92% on room air. Objective - Vital Signs Vital signs: Vital Signs Temp 98.2 F 04/08/17 08:00 Pulse 89 04/08/17 08:00 Resp 16 04/08/17 08:00 BP 133/71 04/08/17 08:00 Pulse Ox 96 04/08/17 08:00 Intake & Output 04/07/17 04/08/17 04/08/17 18:59 06:59 18:59 Intake Total 0 150 180 Balance 0 150 180 Weight 56.6 kg 57.1 kg Intake: Intake, IV Titration 0 150 Amount Sodium Chloride 0.45% 1, 150 000 ml @ 50 mls/hr IV . Q20H [facility] Rx#:[id number] Sodium Chloride 0.9% 1, 0 000 ml @ 60 mls/hr IV . [id number] [facility] Rx#:[id number] Oral 0 180 Other: Voiding Method Incontinent Incontinent # Voids 0 - Exam GENERAL: This is a 66-year-old female in no apparent distress at the time of examination, but is lethargic. Pleasant and cooperative. HEENT: Head is atraumatic, normocephalic. Pupils are equal, round, and reactive to light. Sclerae anicteric. Conjunctivae are clear. Mucus membranes of the mouth are moist. Neck is supple. RESPIRATORY: Diminished throughout. No use of accessory muscles. Patient maintaining oxygen saturation greater than 92%. No chest wall tenderness is noted on palpation or with deep breathing. CARDIOVASCULAR: Regular rate and rhythm. S1 and S2 noted. No systolic or diastolic murmur auscultated. No JVD noted. No S3 or S4 noted. GASTROINTESTINAL: No distention noted. Abdomen soft and round. Normal active bowel sounds auscultated x4 quadrants. No pain or tenderness noted upon palpation. INTEGUMENTARY: No cyanosis. No jaundice. No rashes noted. No cellulitis noted. EXTREMITIES: 2+ peripheral pulses. No evidence of peripheral edema. No calf tenderness noted. NEUROLOGIC: Cranial nerves II-XII intact. PSYCHIATRIC: Oriented to self. Unable to state current year or correct location. Appropriate affect. - Labs CBC & Chem 7: 04/08/17 03:50 04/08/17 03:50 Labs: Abnormal Lab Results - Last 24 Hours (Table) 04/07/17 04/07/17 04/07/17 Range/Units 15:03 15:03 16:10 RBC (3.80-5.40) m/uL Hgb 11.0 L (11.4-16.0) gm/dL Hct (34.0-46.0) % MCHC 30.5 L (31.0-37.0) g/dL RDW 16.0 H (11.5-15.5) % Neutrophils # 8.5 H (1.3-7.7) k/uL Lymphocytes # 0.8 L (1.0-4.8) k/uL Sodium 146 H (137-145) mmol/L Potassium 3.4 L (3.5-5.1) mmol/L Chloride 111 H (98-107) mmol/L Glucose 62 L (74-99) mg/dL Urine Appearance Cloudy H (Clear) Urine Protein Trace H (Negative) Urine Blood Trace H (Negative) Ur Leukocyte Esterase Large H (Negative) Urine WBC 148 H (0-5) /hpf Urine WBC Clumps Occasional H (None) /hpf Ur Squamous Epith Cells 12 H (0-4) /hpf Amorphous Sediment Rare H (None) /hpf Urine Bacteria Occasional H (None) /hpf Urine Mucus Occasional H (None) /hpf Urine Yeast (Budding) Moderate H (None) /hpf 04/08/17 04/08/17 Range/Units 03:50 03:50 RBC 3.46 L (3.80-5.40) m/uL Hgb 9.7 L (11.4-16.0) gm/dL Hct 31.5 L (34.0-46.0) % MCHC 30.8 L (31.0-37.0) g/dL RDW (11.5-15.5) % Neutrophils # (1.3-7.7) k/uL Lymphocytes # (1.0-4.8) k/uL Sodium (137-145) mmol/L Potassium 3.4 L (3.5-5.1) mmol/L Chloride 110 H (98-107) mmol/L Glucose (74-99) mg/dL Urine Appearance (Clear) Urine Protein (Negative) Urine Blood (Negative) Ur Leukocyte Esterase (Negative) Urine WBC (0-5) /hpf Urine WBC Clumps (None) /hpf Ur Squamous Epith Cells (0-4) /hpf Amorphous Sediment (None) /hpf Urine Bacteria (None) /hpf Urine Mucus (None) /hpf Urine Yeast (Budding) (None) /hpf Assessment and Plan Plan: ASSESSMENT: Urinary tract infection, present on admission, cultures pending Encephalopathy, likely secondary to urinary tract infection Recent syncopal episodes, per patient's guardian, etiology unclear History of coronary artery disease with prior myocardial infarction Recent exploratory laparotomy with bowel resection, colostomy, and appendectomy in March 2017 Diabetes mellitus, type II, hemoglobin A1c pending Mild hypoglycemia, likely secondary to decreased oral intake due to lethargy History of dementia Hypokalemia PLAN: -Cardiology was consulted and has signed off at this time -Transfer to general medical floor -Await echo results -Await EEG results -Monitor neurological status -Home meds as appropriate -Monitor labs -Order K-Dur 20 mEq X1 dose. Patient receives 10 mEq daily at HS. -Change IV fluid from 0.45 to D5.45 at 50 mL an hour until patient is less lethargic and able to consume greater PO intake -Obtain urine culture to ensure UTI is not resistant to Rocephin -GI prophylaxis: Protonix 40 mg PO HS -DVT prophylaxis: Heparin 5000 units subcu every 8 hours -Monitor vital signs and address as appropriate -PT/OT consults -Consult social work for possible ECF placement -Discharge planning: Likely ECF placement. Patient was at [facility]. -Further recommendations pending patient's course Nurse practitioner note has been reviewed by physician. Signing provider agrees with the documented findings, assessment, and plan of care.
--- NOTE | 2017-04-08 11:47 | P.CRDCN ---
History of Present Illness Consult date: 04/08/17 Chief complaint: Change in mental status History of present illness: This is a 66-year-old female patient who was brought by her family where she lives at home with them to the hospital with a change in mental status. Currently the patient is confused and poor historian and the story was taken from the records in the computer. The patient does have history of underlying dementia, history of bipolar disorder, as well as multiple comorbidities. Her family noticed change in her mental status where she was more confused. There is no mention of any chest pain or chest discomfort or shortness of breath. The patient did not lose her consciousness. The workup in the emergency room revealed what it seems to be urinary tract infection and the patient was admitted to the hospital and started on antibiotic. Also she was found to have dehydration and currently she is on IV fluid. The patient did not have any fever or chills, no cough, no wheezing and no syncope. She underwent a computed tomography scan of the brain which showed only chronic changes and without any acute finding. The chest x-ray did not reveal any pneumonia. The EKG showed normal sinus mechanism without any significant ST changes. I could not tell if the patient has any history of coronary artery disease but the documentation in the EMR indicates history of CAD. Past Medical History Past Medical History: Asthma, Coronary Artery Disease (CAD), Heart Failure, Dementia, Diabetes Mellitus, Deep Vein Thrombosis (DVT), GERD/Reflux, Hyperlipidemia, Myocardial Infarction (VT), Osteoarthritis (OA), Pneumonia, Renal Disease, Seizure Disorder, Sleep Apnea/CPAP/BIPAP, Vascular Disorder Additional Past Medical History / Comment(s): Bronchial asthma, dementia, diabetes mellitus, hyperlipidemia, coronary artery disease with previous myocardial infarction, seizure disorder many years back and the patient has not been on seizure medication. 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 Last Myocardial Infarction Date:: 1991 History of Any Multi-Drug Resistant Organisms: None Reported Past Surgical History: Adenoidectomy, Appendectomy, Bowel Resection, Cholecystectomy, Hernia Repair, Hysterectomy, Joint Replacement, Orthopedic Surgery, Tonsillectomy Additional Past Surgical History / Comment(s): exploratory laparotomy and a small bowel resection (2017), partial colon resection with colostomy then reversal, SILVERIO KNEE ARTHROSCOPY, Right KNEE REPLACEMENT, EGDs and colonoscopies, lipomas off back, cyst off spine, eye duct surgery Past Anesthesia/Blood Transfusion Reactions: Previous Problems w/ Anesthesia, Motion Sickness Additional Past Anesthesia/Blood Transfusion Reaction / Comment(s): DIFFICULTY WAKING UP. CLAUSTERPHOBIC Past Psychological History: Anxiety, Bipolar Additional Psychological History / Comment(s): DYSLEXIA but is able to read and write with some difficulty. Pt resides with her sisters, Reny who is also her legal guardian and other sister Michelle. They are her caretakers. Dru uses a walker to ambulate. She does not drive, Michelle takes her to [employer]. pt also has dementia and is deaf Smoking Status: Never smoker Past Alcohol Use History: None Reported Past Drug Use History: None Reported - Past Family History Father Family Medical History: Cancer Additional Family Medical History / Comment(s): Father had lung cancer. Mother Family Medical History: Congestive Heart Failure (CHF), Dementia, Myocardial Infarction (VT) Medications and Allergies Home Medications Medication Instructions Recorded Confirmed Type Albuterol Sulfate [Proair Hfa] 2 puff INHALATION RT-QID PRN 06/24/14 04/07/17 History Donepezil [Aricept] 10 mg PO DAILY 02/07/15 04/07/17 History Loratadine 10 mg PO DAILY 06/28/16 04/07/17 History Montelukast Sodium [Singulair] 10 mg PO HS 06/28/16 04/07/17 History Omeprazole [PriLOSEC] 20 mg PO HS 06/28/16 04/07/17 History Memantine HCl [Namenda Xr] 28 mg PO HS 07/15/16 04/07/17 History risperiDONE [RisperDAL] 1 mg PO HS 08/16/16 04/07/17 History glipiZIDE [Glucotrol] 5 mg PO AC-BRKFST 09/03/16 04/07/17 History Sertraline [Zoloft] 50 mg PO DAILY 11/22/16 04/07/17 History Mirtazapine 7.5 mg PO HS #30 tablet 03/22/17 04/07/17 Rx Albuterol Nebulized [Ventolin 2.5 mg INHALATION RT-QID 04/07/17 04/07/17 History Nebulized] Famotidine 10 mg PO DAILY 04/07/17 04/07/17 History HYDROcodone/APAP 5-325MG [[place] 1 - 2 tab PO Q4HR PRN 04/07/17 04/07/17 History 5-325] Potassium Chloride ER [K-Dur 10] 10 meq PO HS 04/07/17 04/07/17 History Allergies Allergy/AdvReac Type Severity Reaction Status Date / Time codeine Allergy Rash/Hives Verified 04/07/17 15:59 lorazepam [From Ativan] Allergy Rash/Hives Verified 04/07/17 15:59 oxaprozin [From Daypro] Allergy Rash/Hives Verified 04/07/17 15:59 Sulfa (Sulfonamide Allergy Rash/Hives Verified 04/07/17 15:59 Antibiotics) baclofen AdvReac Unknown Psychotic Verified 04/07/17 15:59 Episode cyclobenzaprine HCl AdvReac Confusion Verified 04/07/17 15:59 [From Flexeril] Physical Exam Vitals: Vital Signs Temp Pulse Pulse Resp BP BP Pulse Ox 04/08/17 11:21 80 04/08/17 11:11 84 04/08/17 08:00 98.2 F 89 16 133/71 96 04/08/17 04:00 97.4 F L 74 16 170/77 97 04/08/17 00:00 96.9 F L 81 16 164/77 96 04/07/17 21:13 72 04/07/17 21:07 72 04/07/17 20:00 97 F L 92 16 139/66 95 04/07/17 18:35 166/75 04/07/17 18:15 97.8 F 80 20 184/81 95 04/07/17 17:30 98.1 F 88 20 168/75 98 04/07/17 17:21 97.8 F 76 18 166/75 95 04/07/17 17:00 89 20 173/74 98 04/07/17 16:00 90 20 170/90 98 04/07/17 14:29 99.0 F 86 20 160/74 96 Intake and Output 04/07/17 04/08/17 04/08/17 22:59 06:59 14:59 Intake Total 0 150 180 Balance 0 150 180 Intake: Intake, IV Titration 0 150 Amount Sodium Chloride 0.45% 1, 150 000 ml @ 50 mls/hr IV . Q20H [facility] Rx#:[id number] Sodium Chloride 0.9% 1, 0 000 ml @ 60 mls/hr IV . [id number] [facility] Rx#:[id number] Oral 0 180 Other: Voiding Method Incontinent Incontinent Incontinent # Voids 0 1 Weight 56.6 kg 57.1 kg - Constitutional General appearance: no acute distress - Respiratory Respiratory: bilateral: CTA - Cardiovascular Rhythm: regular Heart sounds: normal: S1, S2 Abnormal Heart Sounds: systolic murmur Results 04/08/17 03:50 04/08/17 03:50 Cardiac Enzymes 04/07/17 04/07/17 04/07/17 Range/Units 15:03 15:03 20:57 AST 24 (14-36) U/L CK-MB (CK-2) 0.8 (0.0-2.4) ng/mL Troponin I <0.012 <0.012 (0.000-0.034) ng/mL 04/08/17 Range/Units 03:50 AST (14-36) U/L CK-MB (CK-2) (0.0-2.4) ng/mL Troponin I <0.012 (0.000-0.034) ng/mL Coagulation 04/07/17 Range/Units 15:03 PT 10.7 (9.0-12.0) sec APTT 24.3 (22.0-30.0) sec CBC 04/07/17 04/08/17 Range/Units 15:03 03:50 WBC 10.4 5.9 (3.8-10.6) k/uL RBC 4.04 3.46 L (3.80-5.40) m/uL Hgb 11.0 L 9.7 L (11.4-16.0) gm/dL Hct 36.0 31.5 L (34.0-46.0) % Plt Count 253 231 (150-450) k/uL Comprehensive Metabolic Panel 04/07/17 04/08/17 Range/Units 15:03 03:50 Sodium 146 H 142 (137-145) mmol/L Potassium 3.4 L 3.4 L (3.5-5.1) mmol/L Chloride 111 H 110 H (98-107) mmol/L Carbon Dioxide 25 24 (22-30) mmol/L BUN 13 11 (7-17) mg/dL Creatinine 0.90 0.80 (0.52-1.04) mg/dL Glucose 62 L 95 (74-99) mg/dL Calcium 9.0 8.5 (8.4-10.2) mg/dL AST 24 (14-36) U/L ALT 29 (9-52) U/L Alkaline Phosphatase 104 (38-126) U/L Total Protein 6.6 (6.3-8.2) g/dL Albumin 3.5 (3.5-5.0) g/dL Current Medications Generic Name Dose Route Start Last Admin Trade Name Freq PRN Reason Stop Dose Admin Acetaminophen 650 mg 04/07/17 18:11 Tylenol Tab PO Q6HR PRN Fever and/ or MILD Pain Albuterol Sulfate 2.5 mg 04/07/17 18:07 Ventolin Nebulized INHALATION RT-QID PRN Shortness Of Breath Albuterol Sulfate 2.5 mg 04/07/17 20:00 04/08/17 11:10 Ventolin Nebulized INHALATION 2.5 mg RT-QID [facility] Administration Ceftriaxone Sodium 1,000 mg 04/08/17 09:00 04/08/17 09:42 Rocephin IVP 1,000 mg Q12HR [facility] Administration Donepezil HCl 10 mg 04/08/17 09:00 04/08/17 09:43 Aricept PO 10 mg DAILY [facility] Administration Famotidine 10 mg 04/08/17 09:00 04/08/17 09:43 Pepcid PO 10 mg DAILY [facility] Administration Glipizide 5 mg 04/08/17 07:30 04/08/17 06:51 Glucotrol PO 5 mg AC-BRKFST [facility] Administration Heparin Sodium (Porcine) 5,000 unit 04/08/17 16:00 Heparin SQ Q8HR [facility] Sodium Chloride 1,000 mls @ 50 mls/hr 04/07/17 22:30 04/07/17 23:57 Saline 0.45% IV 50 mls/hr .Q20H [facility] Administration Insulin Human Lispro 0 unit 04/07/17 21:00 04/08/17 06:32 Humalog SQ Not Given ACHS [facility] Protocol Loratadine 10 mg 04/08/17 09:00 04/08/17 09:42 Claritin PO 10 mg DAILY [facility] Administration Memantine 10 mg 04/07/17 21:00 04/08/17 09:43 Namenda PO 10 mg BID [facility] Administration Montelukast Sodium 10 mg 04/07/17 21:00 04/07/17 20:17 Singulair PO 10 mg HS [facility] Administration Naloxone HCl 0.2 mg 04/07/17 17:01 Narcan IV Q2M PRN Opioid Reversal Pantoprazole Sodium 40 mg 04/07/17 21:00 04/07/17 20:17 Protonix PO 40 mg HS [facility] Administration Potassium Chloride 10 meq 04/07/17 21:00 04/07/17 20:17 K-Dur 10 PO 10 meq HS [facility] Administration Intake and Output 04/07/17 04/08/17 04/08/17 22:59 06:59 14:59 Intake Total 0 150 180 Balance 0 150 180 Intake: Intake, IV Titration 0 150 Amount Sodium Chloride 0.45% 1, 150 000 ml @ 50 mls/hr IV . Q20H [facility] Rx#:[id number] Sodium Chloride 0.9% 1, 0 000 ml @ 60 mls/hr IV . [id number] [facility] Rx#:[id number] Oral 0 180 Other: Voiding Method Incontinent Incontinent Incontinent # Voids 0 1 Weight 56.6 kg 57.1 kg 04/08/17 03:50 04/08/17 03:50 Assessment and Plan Assessment: This is a 66-year-old female patient with underlying dementia as well as bipolar disorder who was brought with a change in mental status and was found to have UTI and dehydration. Clinically she did not have any symptoms of chest pain or chest discomfort or difficulty breathing. Hemodynamically she continues to be stable. From a cardiovascular standpoint of view, there is no reason for any further cardiac workup and we will follow-up with the patient on when necessary case. Thank you for allowing us participate in her care
[2017-04-08 11:50] LABS: Glucose,Whole Blood 65 mg/dL (75-99)
[2017-04-08 11:55] LABS: Glucose,Whole Blood 73 mg/dL (75-99)
--- NOTE | 2017-04-08 11:58 | US ---
EXAMINATION TYPE: US carotid duplex BILAT DATE OF EXAM: 04/08/2017 COMPARISON: US CLINICAL HISTORY: syncope. Altered mental status EXAM MEASUREMENTS: RIGHT: Peak Systolic Velocity (PSV) cm/sec ----- Right CCA: 77.9 ----- Right ICA: 85.3 ----- Right ECA: 103.4 ICA/CCA ratio: 1.1 RIGHT: End Diastole cm/sec ----- Right CCA: 9.8 ----- Right ICA: 18.0 ----- Right ECA: 0.0 LEFT: Peak Systolic Velocity (PSV) cm/sec ----- Left CCA: 63.6 ----- Left ICA: 84.5 ----- Left ECA: 115.1 ICA/CCA ratio: 1.3 LEFT: End Diastole cm/sec ----- Left CCA: 13.0 ----- Left ICA: 24.1 ----- Left ECA: 6.3 VERTEBRALS (direction of flow): Right Vertebral: Antegrade Left Vertebral: Antegrade Rhythm: Normal No evidence of significant stenosis seen on today's exam Grayscale, color Doppler, spectral Doppler imaging performed of the carotid arteries. IMPRESSION: No hemodynamic significant stenosis of the proximal internal carotid arteries bilaterall y by Doppler draped, an indirect measurement of carotid stenosis
[2017-04-08] MEDS: DEXTROSE 5%-0.45% NACL 1,000 ML IV SCH (15:51)
[2017-04-08] MEDS: HEPARIN SODIUM,PORCINE 5,000 UNIT/ML 1 ML VIAL SQ SCH ×2 (15:55→22:30)
[2017-04-08 16:44] LABS: Glucose,Whole Blood 99 mg/dL (75-99)
[2017-04-08 17:03] LABS: Appearance,Urine Clear (Clear); Bilirubin,Urine Negative (Negative); Glucose,Urine (UA) Negative (Negative); Ketones,Urine Negative (Negative); Leukocyte Esterase,Urine Moderate (Negative); Mucus,Urine Rare /hpf; Nitrite,Urine Negative (Negative); Particle Count 1920; Protein,Urine Trace (Negative); RBC,Urine 3 /hpf (0-5); Specific Gravity,Urine 1.015 (1.001-1.035); Squamous Epithelial Cell,Urine 1 /hpf (0-4); UA Billing (MACRO vs. MICRO) MICRO; Urobilinogen,Urine <2.0 mg/dL (<2.0); WBC,Urine 25 /hpf (0-5)
[2017-04-08 21:20] LABS: Glucose,Whole Blood 117 mg/dL (75-99)
[2017-04-08] MEDS: MONTELUKAST 10 MG TAB PO SCH (22:28)
[2017-04-08] MEDS: PANTOPRAZOLE 40 MG TABLET PO SCH (22:29)
[2017-04-08] MEDS: POTASSIUM CHLORIDE ER 10 MEQ TAB.ER.PRT PO SCH (22:29)
[2017-04-09] MEDS: MEMANTINE 10 MG TAB PO SCH ×2 (07:43→21:03)
[2017-04-09] MEDS: INSULIN LISPRO (humaLOG) 300 UNIT/3 ML VIAL SQ SCH ×4 (07:43→21:02)
[2017-04-09] MEDS: glipiZIDE 5 MG TAB PO SCH (07:43)
[2017-04-09] MEDS: FAMOTIDINE 20 MG TAB PO SCH (07:44)
[2017-04-09 07:45] LABS: Glucose,Whole Blood 125 mg/dL (75-99)
[2017-04-09] MEDS: LORATADINE 10 MG TAB PO SCH (07:45)
[2017-04-09] MEDS: DONEPEZIL 10 MG TAB PO SCH (07:46)
[2017-04-09] MEDS: HEPARIN SODIUM,PORCINE 5,000 UNIT/ML 1 ML VIAL SQ SCH ×3 (07:46→23:15)
[2017-04-09] MEDS: ALBUTEROL NEBULIZED 2.5 MG/3 ML INHALATION SCH ×4 (08:12→19:51)
[2017-04-09 08:18] LABS: Basophils # (A) 0.1 k/uL (0-0.2); Basophils % (A) 1 %; CH 28.3; CHCM 31.4; Eosinophils # (A) 0.2 k/uL (0-0.7); Eosinophils % (A) 3 %; HCT 33.5 % (34.0-46.0); HDW 2.55; HGB 10.3 gm/dL (11.4-16.0); Hypochromasia Slight; Luc # (Auto) 0.06; Luc % (Auto) 1; Lymphocytes # (A) 0.9 k/uL (1.0-4.8); Lymphocytes % (A) 13 %; MCH 27.9 pg (25.0-35.0); MCHC 30.9 g/dL (31.0-37.0); MCV 90.3 fL (80.0-100.0); Mean Platelet Volume 7.1; Monocytes # (A) 0.3 k/uL (0-1.0); Monocytes % (A) 5 %; Neutrophils # (A) 5.1 k/uL (1.3-7.7); Neutrophils % (A) 77 %; RBC 3.71 m/uL (3.80-5.40); RDW 14.5 % (11.5-15.5); WBC 6.6 k/uL (3.8-10.6); WBC (Perox) 7.08
[2017-04-09 08:39] LABS: Anion Gap 8 mmol/L; Blood Urea Nitrogen 8 mg/dL (7-17); Calcium 8.5 mg/dL (8.4-10.2); Carbon Dioxide 22 mmol/L (22-30); Chloride 109 mmol/L (98-107); Glucose 135 mg/dL (74-99); Magnesium 1.3 mg/dL (1.6-2.3); Non-African American GFR(MDRD) >60 (>60 ml/min/1.73 sqM); Sodium 139 mmol/L (137-145)
[2017-04-09] MEDS: cefTRIAXone IN SWFI 1,000 MG/10 ML SYRINGE IVP SCH ×2 (08:50→21:26)
[2017-04-09] MEDS ORDERED: Magnesium Replacement Protocol 1 EACH MISC MISCELLANE PRN (10:18)
--- NOTE | 2017-04-09 10:25 | XR ---
Abdomen 2 view HISTORY: Abdominal pain 2 views of the abdomen submitted on 3 images Comparison to prior exam 07/14/2016 Postop changes are again noted. Lung bases are clear. There is a spinal curvature. There may be cardi ac enlargement. No pneumoperitoneum or bowel obstruction is evident. There are dense vascular calcifi cations noted incidentally. Degenerative disc change in the visualized spine. IMPRESSION: Postop changes. Follow-up as indicated. Additional findings above.
--- NOTE | 2017-04-09 10:40 | P.PN ---
Subjective Progress Note Date: 04/09/17 66-year-old female who presented to the emergency room on 04/07/2017 due to altered mental status. Additional history was taken from the guardian, who is the patient's sister. She stated that the patient had a few syncopal episodes that lasted approximately 5 minutes. She states the patient has had these episodes before and they were due to dehydration. She was admitted to the hospital under the care of Dr. Golden. Consultations were placed to cardiology for evaluation of syncope. The patient has a history of coronary artery disease, congestive heart failure, diabetes mellitus, dementia, myocardial production, chronic renal disease, and obstructive sleep apnea. The patient has a history of expiratory laparotomy, lysis of adhesions, and small bowel resection in November 2016. She was recently hospitalized in March and underwent exploratory laparotomy, lysis of adhesions , small bowel resection, appendectomy, and sigmoid colectomy with end colostomy on 03/13/[address] Leal. In the emergency room, a CT of the brain was completed which was negative for an acute intracranial process. It did show mild ventriculomegaly which was unchanged from prior exams. A x-ray of the chest was completed which showed borderline heart size and interstitial changes, and possible mild congestive heart failure. A urinalysis revealed a urinary tract infection. A urine culture was not ordered, but the patient has since been placed on ceftriaxone. Troponins were negative 3. 04/08/2017 The patient was seen and examined at the bedside. She is very lethargic but arousable to verbal stimuli. She was unable to state the year. When asked where she was, the patient stated she was at [facility]. She denies pain or discomfort. She denies dizziness, but states she is slightly lightheaded. Spoke with nursing who states that patient has been sleeping most of the shift. She states she did eat her breakfast this morning. An echocardiogram and carotid ultrasound have been ordered. The patient's white count is 5.9. Hemoglobin 9.7. Sodium 142. Potassium 3.4. TSH was normal at 1.890. She remains on Rocephin 1000mg every 12 hours. She is afebrile. Blood pressure stable with the last reading of 133/71. She is maintaining an oxygen saturation greater than 92% on room air. 04/09/2017 Patient has been transferred to general medical floor from selective unit. She is more awake this morning in comparison to yesterday. She remains confused on the year and her location. She is alert to self and able to answer assessment questions appropriately. She denies chest pain or pressure. Denies shortness of breath. She is maintaining oxygen saturation greater than 92% on room air. She complains of abdominal pain. Colostomy with moderate amount of brown/conner liquid stool present. Urine culture remains in progress. Patient remains on Rocephin. Blood cultures at negative at the 24 hour luis alberto. Her magnesium is 1.3 this morning. Physical therapy was consulted and they recommend ECF for subacute rehabilitation with 24/12 supervision. Social work was consulted for ECF placement. Summer, social media analyst, spoke to Reny who is the patients sister and legal guardian and is refusing ECF. Patient was recently at [facility] for rehab. She states her and her other sister care for the patient at home. They are agreeable to home care though. Objective - Vital Signs Vital signs: Vital Signs Temp 96.9 F L 04/09/17 07:00 Pulse 84 04/09/17 08:23 Resp 20 04/09/17 07:00 BP 151/77 04/09/17 07:00 Pulse Ox 98 04/09/17 07:00 Intake & Output 04/08/17 04/09/17 04/09/17 18:59 06:59 18:59 Intake Total 984 Output Total 200 200 Balance 784 -200 Intake: Intake, IV Titration 450 Amount Sodium Chloride 0.45% 1, 450 000 ml @ 50 mls/hr IV . Q20H [facility] Rx#:[id number] Oral 534 Output: Stool 200 200 Other: Voiding Method Incontinent Incontinent # Voids 3 2 - Exam GENERAL: This is a 66-year-old female in no apparent distress at the time of examination. More awake this morning. Pleasant and cooperative. HEENT: Head is atraumatic, normocephalic. Pupils are equal, round, and reactive to light. Sclerae anicteric. Conjunctivae are clear. Mucus membranes of the mouth are moist. Neck is supple. RESPIRATORY: Diminished throughout. No use of accessory muscles. Patient maintaining oxygen saturation greater than 92% on room air. No chest wall tenderness is noted on palpation or with deep breathing. CARDIOVASCULAR: Regular rate and rhythm. S1 and S2 noted. No systolic or diastolic murmur auscultated. No JVD noted. No S3 or S4 noted. GASTROINTESTINAL: No distention noted. Abdomen soft and round. Normal active bowel sounds auscultated x 4 quadrants. Pain and tenderness with facial grimacing to all 4 quadrants. Colostomy intact with moderate amount of brown liquid stool. INTEGUMENTARY: No cyanosis. No jaundice. No rashes noted. No cellulitis noted. EXTREMITIES: 2+ peripheral pulses. No evidence of peripheral edema. No calf tenderness noted. NEUROLOGIC: Cranial nerves II-XII intact. PSYCHIATRIC: Oriented to self. Unable to state current year or correct location. Appropriate affect. - Labs CBC & Chem 7: 04/09/17 07:50 04/09/17 07:50 Labs: Abnormal Lab Results - Last 24 Hours (Table) 04/08/17 04/08/17 04/08/17 Range/Units 11:34 11:53 16:50 RBC (3.80-5.40) m/uL Hgb (11.4-16.0) gm/dL Hct (34.0-46.0) % MCHC (31.0-37.0) g/dL Lymphocytes # (1.0-4.8) k/uL Chloride (98-107) mmol/L Glucose (74-99) mg/dL POC Glucose (mg/dL) 65 L 73 L (75-99) mg/dL Magnesium (1.6-2.3) mg/dL Urine Protein Trace H (Negative) Ur Leukocyte Esterase Moderate H (Negative) Urine WBC 25 H (0-5) /hpf Urine Mucus Rare H (None) /hpf Urine Yeast (Budding) Few H (None) /hpf 04/08/17 04/09/17 04/09/17 Range/Units 21:17 07:22 07:50 RBC 3.71 L (3.80-5.40) m/uL Hgb 10.3 L (11.4-16.0) gm/dL Hct 33.5 L (34.0-46.0) % MCHC 30.9 L (31.0-37.0) g/dL Lymphocytes # 0.9 L (1.0-4.8) k/uL Chloride (98-107) mmol/L Glucose (74-99) mg/dL POC Glucose (mg/dL) 117 H 125 H (75-99) mg/dL Magnesium (1.6-2.3) mg/dL Urine Protein (Negative) Ur Leukocyte Esterase (Negative) Urine WBC (0-5) /hpf Urine Mucus (None) /hpf Urine Yeast (Budding) (None) /hpf 04/09/17 Range/Units 07:50 RBC (3.80-5.40) m/uL Hgb (11.4-16.0) gm/dL Hct (34.0-46.0) % MCHC (31.0-37.0) g/dL Lymphocytes # (1.0-4.8) k/uL Chloride 109 H (98-107) mmol/L Glucose 135 H (74-99) mg/dL POC Glucose (mg/dL) (75-99) mg/dL Magnesium 1.3 L (1.6-2.3) mg/dL Urine Protein (Negative) Ur Leukocyte Esterase (Negative) Urine WBC (0-5) /hpf Urine Mucus (None) /hpf Urine Yeast (Budding) (None) /hpf Microbiology - Last 24 Hours (Table) 04/08/17 16:50 Urine Culture - Preliminary Urine,Clean Catch 04/07/17 17:15 Blood Culture - Preliminary Blood No Growth after 24 hours Assessment and Plan Plan: ASSESSMENT: Urinary tract infection, present on admission, cultures pending Acute metabolic encephalopathy secondary to urinary tract infection Recent syncopal episodes, per patient's guardian, etiology unclear but may be secondary to UTI and dehydration History of coronary artery disease with prior myocardial infarction Recent exploratory laparotomy with bowel resection, colostomy, and appendectomy in March 2017 Abdominal pain, etiology unclear, abdominal xray pending Chronic diastolic congestive heart failure, stable, echo shows EF greater than 55% Diabetes mellitus, type II, hemoglobin A1c 5.4 Mild hypoglycemia, likely secondary to decreased oral intake due to lethargy, resolved History of dementia Hypokalemia, resolved Hypomagnesemia PLAN: -Obtain abdominal xray -Monitor neurological status -Home meds as appropriate -Monitor labs -Replace magnesium per protocol -Await urine culture results -Continue Rocephin -Discontinue IV fluid -Encourage PO intake -Monitor capillary blood glucose AC/HS -GI prophylaxis: Protonix 40 mg PO HS -DVT prophylaxis: Heparin 5000 units subcu every 8 hours -Monitor vital signs and address as appropriate -PT/OT -Increase activity as tolerated -Discharge planning: Patients legal guardian refusing ECF placement. Patient to return home with home care. Patients sisters also help care for her. -Further recommendations pending patient's course -Anticipate discharge within the next 24-48 hours Nurse practitioner note has been reviewed by physician. Signing provider agrees with the documented findings, assessment, and plan of care.
[2017-04-09] MEDS: DEXTROSE 5%-0.45% NACL 1,000 ML IV SCH (11:07)
[2017-04-09] MEDS: MAGNESIUM SULFATE-D5W PMX 1 GM in DEXTROSE/WATER 1 100ML.BAG IVPB SCH ×3 (11:09→14:34)
[2017-04-09 12:16] LABS: Glucose,Whole Blood 99 mg/dL (75-99)
[2017-04-09 17:10] LABS: Glucose,Whole Blood 102 mg/dL (75-99)
[2017-04-09 20:27] LABS: Glucose,Whole Blood 195 mg/dL (75-99)
[2017-04-09] MEDS: POTASSIUM CHLORIDE ER 10 MEQ TAB.ER.PRT PO SCH (21:03)
[2017-04-09] MEDS: MONTELUKAST 10 MG TAB PO SCH (21:03)
[2017-04-09] MEDS: PANTOPRAZOLE 40 MG TABLET PO SCH (21:03)
[2017-04-10 07:41] LABS: Glucose,Whole Blood 98 mg/dL (75-99)
[2017-04-10] MEDS: INSULIN LISPRO (humaLOG) 300 UNIT/3 ML VIAL SQ SCH (07:53)
[2017-04-10 08:00] VITALS: BP 145/79; RESP 16; TEMP 97.6
[2017-04-10] MEDS: ALBUTEROL NEBULIZED 2.5 MG/3 ML INHALATION SCH ×2 (08:42→11:43)
[2017-04-10 10:09] LABS: Anion Gap 10 mmol/L; Blood Urea Nitrogen 7 mg/dL (7-17); Calcium 8.8 mg/dL (8.4-10.2); Carbon Dioxide 22 mmol/L (22-30); Chloride 109 mmol/L (98-107); Glucose 108 mg/dL (74-99); Non-African American GFR(MDRD) >60 (>60 ml/min/1.73 sqM); Potassium 4.1 mmol/L (3.5-5.1); Sodium 141 mmol/L (137-145)
[2017-04-10 10:36] LABS: Basophils # (A) 0.1 k/uL (0-0.2); Basophils % (A) 1 %; CH 27.2; CHCM 31.2; Eosinophils # (A) 0.2 k/uL (0-0.7); Eosinophils % (A) 4 %; HCT 34.2 % (34.0-46.0); HDW 2.38; HGB 10.7 gm/dL (11.4-16.0); Hypochromasia Slight; Luc # (Auto) 0.06; Luc % (Auto) 1; Lymphocytes # (A) 0.8 k/uL (1.0-4.8); Lymphocytes % (A) 14 %; MCH 27.4 pg (25.0-35.0); MCHC 31.3 g/dL (31.0-37.0); MCV 87.7 fL (80.0-100.0); Mean Platelet Volume 7.7; Monocytes # (A) 0.4 k/uL (0-1.0); Monocytes % (A) 6 %; Neutrophils # (A) 4.2 k/uL (1.3-7.7); Neutrophils % (A) 74 %; RDW 15.6 % (11.5-15.5); WBC 5.6 k/uL (3.8-10.6); WBC (Perox) 5.88
[2017-04-10] MEDS: HEPARIN SODIUM,PORCINE 5,000 UNIT/ML 1 ML VIAL SQ SCH (10:43)
[2017-04-10] MEDS: MEMANTINE 10 MG TAB PO SCH (10:43)
[2017-04-10] MEDS: DONEPEZIL 10 MG TAB PO SCH (10:44)
[2017-04-10] MEDS: LORATADINE 10 MG TAB PO SCH (10:44)
[2017-04-10] MEDS: glipiZIDE 5 MG TAB PO SCH (10:44)
[2017-04-10] MEDS: FAMOTIDINE 20 MG TAB PO SCH (10:44)
--- NOTE | 2017-04-10 10:48 | P.DS ---
Providers Date of admission: 04/07/17 17:01 Expected date of discharge: 04/10/17 Attending physician: Jerry Golden Consults: 04/07/17 17:01 Consult Physician Urgent Consulting Provider: Jethro Starr Consult Reason/Comments: syncope Do you want consulting provider notified?: Yes Primary care physician: Jerry Golden [facility] Course: 66-year-old female who presented to the emergency room on 04/07/2017 due to altered mental status. Additional history was taken from the guardian, who is the patient's sister. She stated that the patient had a few syncopal episodes that lasted approximately 5 minutes. She states the patient has had these episodes before and they were due to dehydration. She was admitted to the hospital under the care of Dr. Golden. Consultations were placed to cardiology for evaluation of syncope. The patient has a history of coronary artery disease, congestive heart failure, diabetes mellitus, dementia, myocardial production, chronic renal disease, and obstructive sleep apnea. The patient has a history of expiratory laparotomy, lysis of adhesions, and small bowel resection in November 2016. She was recently hospitalized in March and underwent exploratory laparotomy, lysis of adhesions , small bowel resection, appendectomy, and sigmoid colectomy with end colostomy on 03/13/[address] Leal. In the emergency room, a CT of the brain was completed which was negative for an acute intracranial process. It did show mild ventriculomegaly which was unchanged from prior exams. A x-ray of the chest was completed which showed borderline heart size and interstitial changes, and possible mild congestive heart failure. A urinalysis revealed a urinary tract infection. Troponins were negative 3. Patient complained of abdominal pain during admission. Abdominal xray was unremarkable. Patients colostomy functioning well. Echocardiogram was completed which shows an ejection fraction greater than 55%, mild mitral regurgitation, and mild tricuspid regurgitation. A bilateral carotid Doppler was completed which did not show any significant stenosis. Cardiology was consulted during hospitalization for syncope. Patient was evaluated by machine brush maker who felt there was no further cardiac testing needed. Physical therapy was consulted and they recommend ECF for subacute rehabilitation with 24/7 supervision. Social work was consulted for ECF placement. Summer, clinical social worker, spoke to Reny who is the patients sister and legal guardian and is refusing ECF. Patient was recently at [facility] for rehab. She states her and her other sister care for the patient at home. They are agreeable to home care though. Dr. Golden was aware of discharge plan and is agreeable. Urine culture is pending at the time of discharge. Patient to be discharged home on antibiotics and follow up with Dr Golden outpatient. DISCHARGE DIAGNOSIS: Urinary tract infection, present on admission, cultures pending Acute metabolic encephalopathy secondary to urinary tract infection, resolved back to patient's baseline Recent syncopal episodes, per patient's guardian, etiology unclear but may be secondary to UTI and dehydration History of coronary artery disease with prior myocardial infarction Recent exploratory laparotomy with bowel resection, colostomy, and appendectomy in March 2017 Abdominal pain, etiology unclear, abdominal xray unremarkable, improved at time of discharge Chronic diastolic congestive heart failure, stable, echo shows EF greater than 55% Diabetes mellitus, type II, hemoglobin A1c 5.4 Mild hypoglycemia, likely secondary to decreased oral intake due to lethargy, resolved History of dementia Hypokalemia, resolved Hypomagnesemia, resolved Nurse practitioner note has been reviewed by physician. Signing provider agrees with the documented findings, assessment, and plan of care. Patient Condition at Discharge: Stable Plan - Discharge Summary Discharge Rx Participant: No New Discharge Prescriptions: New Levofloxacin [Levaquin] 750 mg PO DAILY #7 tab Continue Albuterol Sulfate [Proair Hfa] 2 puff INHALATION RT-QID PRN PRN Reason: Shortness Of Breath Donepezil [Aricept] 10 mg PO DAILY Montelukast Sodium [Singulair] 10 mg PO HS Omeprazole [PriLOSEC] 20 mg PO HS Loratadine 10 mg PO DAILY Memantine HCl [Namenda Xr] 28 mg PO HS risperiDONE [RisperDAL] 1 mg PO HS glipiZIDE [Glucotrol] 5 mg PO AC-BRKFST Sertraline [Zoloft] 50 mg PO DAILY Mirtazapine 7.5 mg PO HS #30 tablet Potassium Chloride ER [K-Dur 10] 10 meq PO HS Famotidine 10 mg PO DAILY Albuterol Nebulized [Ventolin Nebulized] 2.5 mg INHALATION RT-QID HYDROcodone/APAP 5-325MG [[place] 5-325] 1 - 2 tab PO Q4HR PRN PRN Reason: Pain Discharge Medication List Albuterol Sulfate [Proair Hfa] 2 puff INHALATION RT-QID PRN 06/24/14 [History] Donepezil [Aricept] 10 mg PO DAILY 02/07/15 [History] Loratadine 10 mg PO DAILY 06/28/16 [History] Montelukast Sodium [Singulair] 10 mg PO HS 06/28/16 [History] Omeprazole [PriLOSEC] 20 mg PO HS 06/28/16 [History] Memantine HCl [Namenda Xr] 28 mg PO HS 07/15/16 [History] risperiDONE [RisperDAL] 1 mg PO HS 08/16/16 [History] glipiZIDE [Glucotrol] 5 mg PO AC-BRKFST 09/03/16 [History] Sertraline [Zoloft] 50 mg PO DAILY 11/22/16 [History] Mirtazapine 7.5 mg PO HS #30 tablet 03/22/17 [Rx] Albuterol Nebulized [Ventolin Nebulized] 2.5 mg INHALATION RT-QID 04/07/17 [ History] Famotidine 10 mg PO DAILY 04/07/17 [History] HYDROcodone/APAP 5-325MG [[place] 5-325] 1 - 2 tab PO Q4HR PRN 04/07/17 [History] Potassium Chloride ER [K-Dur 10] 10 meq PO HS 04/07/17 [History] Levofloxacin [Levaquin] 750 mg PO DAILY #7 tab 04/10/17 [Rx] Follow up Appointment(s)/Referral(s): [facility], [NON-STAFF] - Jerry Golden DO [Primary Care Provider] - 1 Week (Patient needs to see Dr. Golden within 1 week to follow up on urine culture results) Discharge Disposition: HOME WITH HOME HEALTH SERVICES
[2017-04-10] MEDS: cefTRIAXone IN SWFI 1,000 MG/10 ML SYRINGE IVP SCH (11:14)
[2017-04-10 11:33] VITALS: PULSE 77
[2017-04-10 12:45] LABS: Glucose,Whole Blood 78 mg/dL (75-99)
== END 2017-04-10 15:18 | disposition home health service (06) | DRG 689 ==
LOC: EC 14:26 → 6SEL 17:01 → 4MS4W 04-08 20:34
PROVIDERS: ADMIT Family Medicine; ATTEND Family Medicine
DX: N39.0 Urinary tract infection, site not specified (principal); G93.41 Metabolic encephalopathy; I50.32 Chronic diastolic (congestive) heart failure; E11.22 Type 2 diabetes mellitus with diabetic chronic kidney disease; F03.90 Unspecified dementia, unspecified severity, without behavioral disturbance, psychotic disturbance, mood disturbance, and anxiety; E83.42 Hypomagnesemia; I08.1 Rheumatic disorders of both mitral and tricuspid valves; E11.51 Type 2 diabetes mellitus with diabetic peripheral angiopathy without gangrene; E11.649 Type 2 diabetes mellitus with hypoglycemia without coma; E78.5 Hyperlipidemia, unspecified; E86.0 Dehydration; E87.6 Hypokalemia; F31.9 Bipolar disorder, unspecified; F41.9 Anxiety disorder, unspecified; G40.909 Epilepsy, unspecified, not intractable, without status epilepticus; G47.33 Obstructive sleep apnea (adult) (pediatric); G93.89 Other specified disorders of brain; H91.90 Unspecified hearing loss, unspecified ear; I25.10 Atherosclerotic heart disease of native coronary artery without angina pectoris; I25.2 Old myocardial infarction; J45.909 Unspecified asthma, uncomplicated; K21.9 Gastro-esophageal reflux disease without esophagitis; N18.9 Chronic kidney disease, unspecified; R48.0 Dyslexia and alexia; Z79.899 Other long term (current) drug therapy; Z82.49 Family history of ischemic heart disease and other diseases of the circulatory system; Z86.718 Personal history of other venous thrombosis and embolism; Z93.3 Colostomy status; Z96.651 Presence of right artificial knee joint; R55 Syncope and collapse; Z85.068 Personal history of other malignant neoplasm of small intestine; Z88.5 Allergy status to narcotic agent; Z88.2 Allergy status to sulfonamides; Z88.8 Allergy status to other drugs, medicaments and biological substances; Z91.19 Patient's noncompliance with other medical treatment and regimen; M26.609 Unspecified temporomandibular joint disorder, unspecified side; D64.9 Anemia, unspecified; K57.90 Diverticulosis of intestine, part unspecified, without perforation or abscess without bleeding; Z79.84 Long term (current) use of oral hypoglycemic drugs
CPT/HCPCS: 36415; 70450; 71020; 74020; 80048; 80053; 80306; 81001; 82550; 82553; 82607; 83036; 83605; 83735; 84443; 84484; 85025; 85610; 85730; 87040; 87086; 93005; 93306; 93880; 94640; 94760; 96374; 99285

== ENCOUNTER 2017-06-03 11:44 | Emergency (ER) | payer MEDICARE, OTHER ==
[2017-06-03] MEDS ORDERED: SODIUM CHLORIDE 0.9% 1,000 ML IV STA (12:51)
[2017-06-03] MEDS ORDERED: KETOROLAC 30 MG/ML 1 ML VIAL IVP STA (12:51)
[2017-06-03] MEDS ORDERED: ONDANSETRON 4 MG/2 ML VIAL IVP STA (12:51)
[2017-06-03 13:25] LABS: Basophils # (A) 0.1 k/uL (0-0.2); Basophils % (A) 1 %; Eosinophils # (A) 0.1 k/uL (0-0.7); Eosinophils % (A) 1 %; HCT 36.6 % (34.0-46.0); Lymphocytes # (A) 1.1 k/uL (1.0-4.8); Lymphocytes % (A) 13 %; MCH 28.7 pg (25.0-35.0); MCHC 32.6 g/dL (31.0-37.0); MCV 87.9 fL (80.0-100.0); Mean Platelet Volume 7.5; Monocytes # (A) 0.4 k/uL (0-1.0); Monocytes % (A) 5 %; Neutrophils # (A) 6.9 k/uL (1.3-7.7); Neutrophils % (A) 79 %; Platelet Count 190 k/uL (150-450); RBC 4.17 m/uL (3.80-5.40); RDW 14.3 % (11.5-15.5); WBC 8.7 k/uL (3.8-10.6)
[2017-06-03 13:26] VITALS: RESP 16
[2017-06-03 13:36] LABS: ALT 42 U/L (9-52); AST 27 U/L (14-36); Albumin 3.8 g/dL (3.5-5.0); Alkaline Phosphatase 116 U/L (38-126); Amylase 91 U/L (30-110); Anion Gap 10 mmol/L; Blood Urea Nitrogen 19 mg/dL (7-17); Calcium 9.5 mg/dL (8.4-10.2); Carbon Dioxide 25 mmol/L (22-30); Chloride 108 mmol/L (98-107); Glucose 57 mg/dL (74-99); Lipase 208 U/L (23-300); Potassium 3.9 mmol/L (3.5-5.1); Sodium 143 mmol/L (137-145); Total Bilirubin 0.6 mg/dL (0.2-1.3); Total Protein 6.7 g/dL (6.3-8.2)
--- NOTE | 2017-06-03 13:46 | XR ---
EXAMINATION TYPE: XR KUB DATE OF EXAM: 06/03/2017 COMPARISON: NONE HISTORY: Abdominal pain TECHNIQUE: 2 views FINDINGS: There is no sign of intestinal obstruction or pneumoperitoneum. Fecal pattern is normal. Th ere are no pathologic calcifications over the kidneys. There are multiple coils over the abdomen appa rently from hernia surgery. Lung bases are clear. IMPRESSION: Nonacute abdomen. No change.
[2017-06-03 14:39] LABS: Appearance,Urine Clear (Clear); Bilirubin,Urine Negative (Negative); Blood,Urine Negative (Negative); Color,Urine Light Yellow; Glucose,Urine (UA) Negative (Negative); Ketones,Urine Negative (Negative); Leukocyte Esterase,Urine Negative (Negative); Nitrite,Urine Negative (Negative); PH, Urine 5.5 (5.0-8.0); Protein,Urine Negative (Negative); Urobilinogen,Urine <2.0 mg/dL (<2.0)
[2017-06-03] MEDS ORDERED: RX INFO: IV CONTRAST WAS GIVEN 1 EACH MISC MISCELLANE PRN (15:16)
[2017-06-03] MEDS ORDERED: SODIUM CHLORIDE 0.9% 1,000 ML IV ONE (15:17)
--- NOTE | 2017-06-03 15:55 | ED ---
Abdominal Pain HPI - General Chief Complaint: Abdominal Pain Stated Complaint: PAIN AT STOMA SIGHT Time Seen by Provider: 06/03/17 12:18 Source: patient, family, RN notes reviewed, old records reviewed Mode of arrival: wheelchair Limitations: physical limitation - History of Present Illness Initial Comments: This patient is a 66 year old female with CC of intermittent abdominal pain for one day, and increased stools from osteomy site. Patient has history of diverticulitis, and had colonic abscess 2 months ago and this ostomy site was created by Dr. Leal. Patient has had no fever. Patient reports it has been a lower abdominal pain. No dysuria, back pain, nausea, or vomiting. Patient has multiple comorbidities. Patient is under care of her sisiters. Patient was on recent amoxicillin for upper respiratory infection. - Related Data Home Medications Medication Instructions Recorded Confirmed Albuterol Sulfate [Proair Hfa] 2 puff INHALATION RT-QID PRN 06/24/14 06/03/17 Donepezil [Aricept] 10 mg PO DAILY 02/07/15 06/03/17 Loratadine 10 mg PO DAILY 06/28/16 06/03/17 Montelukast Sodium [Singulair] 10 mg PO HS 06/28/16 06/03/17 Omeprazole [PriLOSEC] 20 mg PO HS 06/28/16 06/03/17 risperiDONE [RisperDAL] 1 mg PO HS 08/16/16 06/03/17 glipiZIDE [Glucotrol] 5 mg PO AC-BRKFST 09/03/16 06/03/17 Sertraline [Zoloft] 50 mg PO DAILY 11/22/16 06/03/17 Famotidine [Pepcid] 20 mg PO DAILY 06/03/17 06/03/17 Previous Rx's Medication Instructions Recorded Mirtazapine 7.5 mg PO HS #30 tablet 03/22/17 Allergies Allergy/AdvReac Type Severity Reaction Status Date / Time codeine Allergy Rash/Hives Verified 06/03/17 12:36 lorazepam [From Ativan] Allergy Rash/Hives Verified 06/03/17 12:36 oxaprozin [From Daypro] Allergy Rash/Hives Verified 06/03/17 12:36 Sulfa (Sulfonamide Allergy Rash/Hives Verified 01/01/18 12:36 Antibiotics) baclofen AdvReac Unknown Psychotic Verified 06/03/17 12:36 Episode cyclobenzaprine HCl AdvReac Confusion Verified 06/03/17 12:36 [From Flexeril] Review of Systems ROS Statement: Those systems with pertinent positive or pertinent negative responses have been documented in the HPI. ROS Other: All systems not noted in ROS Statement are negative. Past Medical History Past Medical History: Asthma, Coronary Artery Disease (CAD), Heart Failure, Dementia, Diabetes Mellitus, Deep Vein Thrombosis (DVT), GERD/Reflux, Hyperlipidemia, Myocardial Infarction (DC), Osteoarthritis (OA), Pneumonia, Renal Disease, Seizure Disorder, Sleep Apnea/CPAP/BIPAP, Vascular Disorder Additional Past Medical History / Comment(s): Bronchial asthma, dementia, diabetes mellitus, hyperlipidemia, coronary artery disease with previous myocardial infarction, seizure disorder many years back and the patient has not been on seizure medication. 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 Last Myocardial Infarction Date:: 1991 History of Any Multi-Drug Resistant Organisms: None Reported Past Surgical History: Adenoidectomy, Appendectomy, Bowel Resection, Cholecystectomy, Hernia Repair, Hysterectomy, Joint Replacement, Orthopedic Surgery, Tonsillectomy Additional Past Surgical History / Comment(s): exploratory laparotomy and a small bowel resection (2016), partial colon resection with colostomy then reversal, SILVERIO KNEE ARTHROSCOPY, Right KNEE REPLACEMENT, EGDs and colonoscopies, lipomas off back, cyst off spine, eye duct surgery Past Anesthesia/Blood Transfusion Reactions: Previous Problems w/ Anesthesia, Motion Sickness Additional Past Anesthesia/Blood Transfusion Reaction / Comment(s): DIFFICULTY WAKING UP. CLAUSTERPHOBIC Past Psychological History: Anxiety, Bipolar Smoking Status: Never smoker Past Alcohol Use History: None Reported Past Drug Use History: None Reported - Past Family History Father Family Medical History: Cancer Additional Family Medical History / Comment(s): Father had lung cancer. Mother Family Medical History: Congestive Heart Failure (CHF), Dementia, Myocardial Infarction (DC) General Exam - General Exam Comments Initial Comments: 66 year old female, no distress. Limitations: physical limitation General appearance: alert, in no apparent distress Head exam: Present: atraumatic, normocephalic, normal inspection Eye exam: Present: normal appearance, PERRL, EOMI. Absent: scleral icterus, conjunctival injection, periorbital swelling ENT exam: Present: normal exam, mucous membranes moist Neck exam: Present: normal inspection. Absent: tenderness, meningismus, lymphadenopathy Respiratory exam: Present: normal lung sounds bilaterally. Absent: respiratory distress, wheezes, rales, rhonchi, stridor Cardiovascular Exam: Present: regular rate, normal rhythm, normal heart sounds. Absent: systolic murmur, diastolic murmur, rubs, gallop, clicks GI/Abdominal exam: Present: soft, tenderness (lower abdominal and suprapubic tenderness. ), normal bowel sounds, other (well healed inciscion from abdoinal surgery. Patient has colosteomy site with yellow stool. ). Absent: distended, guarding, rebound, rigid Extremities exam: Present: normal inspection, full ROM, normal capillary refill. Absent: tenderness, pedal edema, joint swelling, calf tenderness Back exam: Present: normal inspection Neurological exam: Present: alert, oriented X3, CN II-XII intact Psychiatric exam: Present: normal affect, normal mood Skin exam: Present: warm, dry, intact, normal color. Absent: rash Course Vital Signs 06/03/17 06/03/17 06/03/17 12:09 13:25 16:24 Temperature 97.5 F L 99.1 F Pulse Rate 70 57 L 74 Respiratory 17 16 16 Rate Blood Pressure 140/60 139/61 159/81 O2 Sat by Pulse 99 96 96 Oximetry Medical Decision Making - Medical Decision Making This is a 66 year old female with multiple comorbidities including colostomy from diverticular abscess with lower abdominal pain for one day and diarrhea. Patient lab work was reviewed and normal. She has tenderness in lower quadrant and suprapubic area. Patient had straight cath and UA is negative. Patient continued to have tenderness and pain, CT completed. No significant abnormalities noted. Well fuctioning colostomy, with signs of diverticulosis, but no diverticulitis. Family informed of these results. They later states that transitional care liaison also has diarrhea. Discussed CDiff negative, and discussed follow up with PCP and to reamain hydrated. Discussed stool studies will be obtained. Discussed return parameters. - Lab Data Result diagrams: 06/03/17 13:15 06/03/17 13:15 Lab Results 06/03/17 06/03/17 06/03/17 Range/Units 13:15 13:15 13:59 WBC 8.7 (3.8-10.6) k/uL RBC 4.17 (3.80-5.40) m/uL Hgb 12.0 (11.4-16.0) gm/dL Hct 36.6 (34.0-46.0) % MCV 87.9 (80.0-100.0) fL MCH 28.7 (25.0-35.0) pg MCHC 32.6 (31.0-37.0) g/dL RDW 14.3 (11.5-15.5) % Plt Count 190 (150-450) k/uL Neutrophils % 79 % Lymphocytes % 13 % Monocytes % 5 % Eosinophils % 1 % Basophils % 1 % Neutrophils # 6.9 (1.3-7.7) k/uL Lymphocytes # 1.1 (1.0-4.8) k/uL Monocytes # 0.4 (0-1.0) k/uL Eosinophils # 0.1 (0-0.7) k/uL Basophils # 0.1 (0-0.2) k/uL Sodium 143 (137-145) mmol/L Potassium 3.9 (3.5-5.1) mmol/L Chloride 108 H (98-107) mmol/L Carbon Dioxide 25 (22-30) mmol/L Anion Gap 10 mmol/L BUN 19 H (7-17) mg/dL Creatinine 1.00 (0.52-1.04) mg/dL Est GFR (MDRD) Af Amer >60 (>60 ml/min/1.73 sqM) Est GFR (MDRD) Non-Af 55 (>60 ml/min/1.73 sqM) Glucose 57 L (74-99) mg/dL Calcium 9.5 (8.4-10.2) mg/dL Total Bilirubin 0.6 (0.2-1.3) mg/dL AST 27 (14-36) U/L ALT 42 (9-52) U/L Alkaline Phosphatase 116 (38-126) U/L Total Protein 6.7 (6.3-8.2) g/dL Albumin 3.8 (3.5-5.0) g/dL Amylase 91 (30-110) U/L Lipase 208 (23-300) U/L Urine Color Urine Appearance (Clear) Urine pH (5.0-8.0) Ur Specific [place] (1.001-1.035) Urine Protein (Negative) Urine Glucose (UA) (Negative) Urine Ketones (Negative) Urine Blood (Negative) Urine Nitrite (Negative) Urine Bilirubin (Negative) Urine Urobilinogen (<2.0) mg/dL Ur Leukocyte Esterase (Negative) C. difficile (EIA) Intrp Negative (Negative) 06/03/17 Range/Units 14:25 WBC (3.8-10.6) k/uL RBC (3.80-5.40) m/uL Hgb (11.4-16.0) gm/dL Hct (34.0-46.0) % MCV (80.0-100.0) fL MCH (25.0-35.0) pg MCHC (31.0-37.0) g/dL RDW (11.5-15.5) % Plt Count (150-450) k/uL Neutrophils % % Lymphocytes % % Monocytes % % Eosinophils % % Basophils % % Neutrophils # (1.3-7.7) k/uL Lymphocytes # (1.0-4.8) k/uL Monocytes # (0-1.0) k/uL Eosinophils # (0-0.7) k/uL Basophils # (0-0.2) k/uL Sodium (137-145) mmol/L Potassium (3.5-5.1) mmol/L Chloride (98-107) mmol/L Carbon Dioxide (22-30) mmol/L Anion Gap mmol/L BUN (7-17) mg/dL Creatinine (0.52-1.04) mg/dL Est GFR (MDRD) Af Amer (>60 ml/min/1.73 sqM) Est GFR (MDRD) Non-Af (>60 ml/min/1.73 sqM) Glucose (74-99) mg/dL Calcium (8.4-10.2) mg/dL Total Bilirubin (0.2-1.3) mg/dL AST (14-36) U/L ALT (9-52) U/L Alkaline Phosphatase (38-126) U/L Total Protein (6.3-8.2) g/dL Albumin (3.5-5.0) g/dL Amylase (30-110) U/L Lipase (23-300) U/L Urine Color Light Yellow Urine Appearance Clear (Clear) Urine pH 5.5 (5.0-8.0) Ur Specific [place] 1.010 (1.001-1.035) Urine Protein Negative (Negative) Urine Glucose (UA) Negative (Negative) Urine Ketones Negative (Negative) Urine Blood Negative (Negative) Urine Nitrite Negative (Negative) Urine Bilirubin Negative (Negative) Urine Urobilinogen <2.0 (<2.0) mg/dL Ur Leukocyte Esterase Negative (Negative) C. difficile (EIA) Intrp (Negative) - Radiology Data Radiology results: report reviewed Extensive colonic diverticulosis, limited exam due to motion. No diverticulitis. No complaticing process involving colostomy. There appears clearing of large peridiverticular abscess in pelvis compared to previous scan. No new abscess. Hiatal hernia, no dilated ducts. Disposition Clinical Impression: Diarrhea Disposition: HOME SELF-CARE Condition: Good Instructions: Acute Diarrhea (ED) Additional Instructions: Patient has a follow-up with primary care provider. Return fluid intake. Return to the emergency department if any alarming signs or symptoms occur. Referrals: Jerry Golden DO [Primary Care Provider] - 1-2 days Time of Disposition: 16:07
--- NOTE | 2017-06-03 16:01 | CT ---
EXAMINATION TYPE: CT abdomen pelvis w con DATE OF EXAM: 06/03/2017 COMPARISON: 03/11/2017 HISTORY: left sided pain at stoma. CT DLP: 493.7 mGycm Automated exposure control for dose reduction was used. TECHNIQUE: Helical acquisition of images was performed from the lung bases through the pelvis. CONTRAST: Performed without Oral Contrast and with IV Contrast, patient injected with 80 mL of Visipaque 320. FINDINGS: Lung bases are clear of consolidation. There is no pleural effusion. Heart is enlarged. There is a hi atal hernia. Liver shows no focal defect. Spleen pancreas appear normal. There are clips from cholecystectomy. Dariel e ducts are not dilated. There is no adrenal mass. Kidneys show satisfactory contrast opacification. There is no hydronephrosi s. There is no retroperitoneal adenopathy. There is a stoma in the left mid abdomen. There are multip le colonic diverticula. Exam is limited by motion. There is no ascites. Bladder distends smoothly. Th ere is no sign of free air. There is lumbar levoscoliosis. There are spondylotic changes in the lumba r spine. IMPRESSION: EXTENSIVE COLONIC DIVERTICULOSIS. LIMITED EXAM DUE TO MOTION. NO EVIDENCE OF DIVERTICULITIS. I SEE NO COMPLICATING PROCESS INVOLVING THE COLOSTOMY. THERE APPEARS TO BE ESSENTIALLY COMPLETE CLEARING OF T HE LARGE PERIDIVERTICULAR ABSCESS IN THE UPPER PELVIS COMPARED TO OLD CT SCAN OF 03/21/2017. NO EVIDE NCE OF ANY NEW ABSCESS. HIATAL HERNIA. NO DILATED DUCTS.
[2017-06-03 16:25] VITALS: BP 159/81; PULSE 74; TEMP 99.1
== END 2017-06-03 16:42 | disposition home or self-care (01) ==
LOC: EC 11:44
DX: R19.7 Diarrhea, unspecified (principal); R10.30 Lower abdominal pain, unspecified; I50.9 Heart failure, unspecified; F03.90 Unspecified dementia, unspecified severity, without behavioral disturbance, psychotic disturbance, mood disturbance, and anxiety; E11.9 Type 2 diabetes mellitus without complications; K21.9 Gastro-esophageal reflux disease without esophagitis; G47.33 Obstructive sleep apnea (adult) (pediatric); Z99.89 Dependence on other enabling machines and devices; F31.9 Bipolar disorder, unspecified; F41.9 Anxiety disorder, unspecified; Z79.84 Long term (current) use of oral hypoglycemic drugs; Z79.899 Other long term (current) drug therapy; Z88.5 Allergy status to narcotic agent; Z88.2 Allergy status to sulfonamides; Z88.8 Allergy status to other drugs, medicaments and biological substances; Z90.49 Acquired absence of other specified parts of digestive tract; Z90.710 Acquired absence of both cervix and uterus; Z98.890 Other specified postprocedural states
CPT/HCPCS: 99285 ×2; 96374 ×2; 96375 ×2; 96361 ×3; 36415; 80053; 82150; 83690; 85025; 81003; 87324; 87045; 89055; 87046; 74018; 74177; Q9967; J2405; J1885

== ENCOUNTER 2017-06-06 17:10 | Observation (INO) | payer MEDICARE, OTHER ==
[2017-06-06] MEDS ORDERED: SODIUM CHLORIDE 0.9% 1,000 ML IV STA (18:15)
[2017-06-06] MEDS ORDERED: KETOROLAC 30 MG/ML 1 ML VIAL IVP STA (18:16)
--- NOTE | 2017-06-06 18:18 | ED ---
General Adult HPI - General Source: patient, RN notes reviewed, old records reviewed, Caregiver Mode of arrival: ambulatory Limitations: physical limitation <Amina Sepulveda - Last Filed: 06/06/17 20:18> <Marcellus Ardon - Last Filed: 06/06/17 20:24> - General Chief complaint: Nausea/Vomiting/Diarrhea Stated complaint: Colon infection Time Seen by Provider: 06/06/17 17:53 - History of Present Illness Initial comments: This is a 66-year-old female presents emergency department for reevaluation due to increased output from her ostomy bag. She reports that she's been having significant watery stools from her ostomy over the past few days. Apparently family had to empty the ileostomy that approximately 5 times today. Patient was reevaluated for similar complaints on Saturday. Patient had a full workup at that time, and everything was negative. C. diff and stool studies are negative. Patient reports that she has some lower abdominal pain. She reports some dysuria. Patient denies any fever or chills. No chest pain or shortness of breath. Patient is here with her caregiver. (Amina Sepulveda) - Related Data Home Medications Medication Instructions Recorded Confirmed Albuterol Sulfate [Proair Hfa] 2 puff INHALATION RT-QID PRN 06/24/14 06/06/17 Donepezil [Aricept] 10 mg PO DAILY 02/07/15 06/06/17 Loratadine 10 mg PO DAILY 06/28/16 06/06/17 Montelukast Sodium [Singulair] 10 mg PO DAILY 06/28/16 06/06/17 Omeprazole [PriLOSEC] 20 mg PO HS 06/28/16 06/06/17 risperiDONE [RisperDAL] 1 mg PO HS 08/16/16 06/06/17 glipiZIDE [Glucotrol] 5 mg PO DAILY 09/03/16 06/06/17 Sertraline [Zoloft] 50 mg PO DAILY 11/22/16 06/06/17 Famotidine [Pepcid] 20 mg PO DAILY 06/03/17 06/06/17 traMADol HCL [Ultram] 50 mg PO BID PRN 06/06/17 06/06/17 Previous Rx's Medication Instructions Recorded Mirtazapine 7.5 mg PO HS #30 tablet 03/22/17 Allergies Allergy/AdvReac Type Severity Reaction Status Date / Time codeine Allergy Rash/Hives Verified 06/06/17 17:16 lorazepam [From Ativan] Allergy Rash/Hives Verified 06/06/17 17:16 oxaprozin [From Daypro] Allergy Rash/Hives Verified 06/06/17 17:16 Sulfa (Sulfonamide Allergy Rash/Hives Verified 06/06/17 17:16 Antibiotics) baclofen AdvReac Unknown Psychotic Verified 06/06/17 18:23 Episode cyclobenzaprine HCl AdvReac Confusion Verified 06/06/17 18:23 [From Flexeril] Review of Systems ROS Other: All systems not noted in ROS Statement are negative. <Amina Sepulveda - Last Filed: 06/06/17 20:18> ROS Other: All systems not noted in ROS Statement are negative. <Marcellus Ardon - Last Filed: 06/06/17 20:24> ROS Statement: Those systems with pertinent positive or pertinent negative responses have been documented in the HPI. Past Medical History Past Medical History: Asthma, Coronary Artery Disease (CAD), Heart Failure, Dementia, Diabetes Mellitus, Deep Vein Thrombosis (DVT), GERD/Reflux, Hyperlipidemia, Myocardial Infarction (SC), Osteoarthritis (OA), Pneumonia, Renal Disease, Seizure Disorder, Sleep Apnea/CPAP/BIPAP, Vascular Disorder Additional Past Medical History / Comment(s): Bronchial asthma, dementia, diabetes mellitus, hyperlipidemia, coronary artery disease with previous myocardial infarction, seizure disorder many years back and the patient has not been on seizure medication. 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 Last Myocardial Infarction Date:: 1991 History of Any Multi-Drug Resistant Organisms: None Reported Past Surgical History: Adenoidectomy, Appendectomy, Bowel Resection, Cholecystectomy, Hernia Repair, Hysterectomy, Joint Replacement, Orthopedic Surgery, Tonsillectomy Additional Past Surgical History / Comment(s): exploratory laparotomy and a small bowel resection (2017), partial colon resection with colostomy then reversal, SILVERIO KNEE ARTHROSCOPY, Right KNEE REPLACEMENT, EGDs and colonoscopies, lipomas off back, cyst off spine, eye duct surgery Past Anesthesia/Blood Transfusion Reactions: Previous Problems w/ Anesthesia, Motion Sickness Additional Past Anesthesia/Blood Transfusion Reaction / Comment(s): DIFFICULTY WAKING UP. CLAUSTERPHOBIC Past Psychological History: Anxiety, Bipolar Smoking Status: Never smoker Past Alcohol Use History: None Reported Past Drug Use History: None Reported - Past Family History Father Family Medical History: Cancer Additional Family Medical History / Comment(s): Father had lung cancer. Mother Family Medical History: Congestive Heart Failure (CHF), Dementia, Myocardial Infarction (SC) <Amina Sepulveda - Last Filed: 06/06/17 20:18> General Exam Limitations: physical limitation General appearance: alert, in no apparent distress Head exam: Present: atraumatic, normocephalic, normal inspection Eye exam: Present: normal appearance, PERRL, EOMI. Absent: scleral icterus, conjunctival injection, periorbital swelling ENT exam: Present: normal exam, mucous membranes moist Neck exam: Present: normal inspection. Absent: tenderness, meningismus, lymphadenopathy Respiratory exam: Present: normal lung sounds bilaterally. Absent: respiratory distress, wheezes, rales, rhonchi, stridor Cardiovascular Exam: Present: regular rate, normal rhythm, normal heart sounds. Absent: systolic murmur, diastolic murmur, rubs, gallop, clicks GI/Abdominal exam: Present: soft, tenderness (lower abdominal and suprapubic tenderness), normal bowel sounds, other (No output from ileostomy at this time.) . Absent: distended, guarding, rebound, rigid Extremities exam: Present: normal inspection, full ROM, normal capillary refill. Absent: tenderness, pedal edema, joint swelling, calf tenderness Back exam: Present: normal inspection Neurological exam: Present: alert, oriented X3, CN II-XII intact Psychiatric exam: Present: normal affect, normal mood Skin exam: Present: warm, dry, intact, normal color. Absent: rash <Amina Sepulveda - Last Filed: 06/06/17 20:18> <Marcellus Ardon - Last Filed: 06/06/17 20:24> - General Exam Comments Initial Comments: This is a 66-year-old female. No distress. She has short stature. (Amina Sepulveda) Vital Signs 06/06/17 06/06/17 17:11 20:05 Temperature 97.1 F L 97.8 F Pulse Rate 89 76 Respiratory 18 18 Rate Blood Pressure 154/73 140/66 O2 Sat by Pulse 98 98 Oximetry Medical Decision Making - Lab Data Result diagrams: 06/06/17 18:38 06/06/17 18:38 - Radiology Data Radiology results: report reviewed <Amina Sepulveda - Last Filed: 06/06/17 20:18> - Lab Data Result diagrams: 06/06/17 18:38 06/06/17 18:38 <Marcellus Ardon - Last Filed: 06/06/17 20:24> - Medical Decision Making 66-year-old female presents with lower abdominal pain, increased output from her ileostomy. Patient labwork was reviewed and was unremarkable besides a mildly elevated lipase compared to labs earlier this week. Patient's stool studies were negative earlier this week. Patient's urinalysis was completed with by catheter. Patient straight cath urinalysis negative for any signs of infection. Patient's KUB is also read as normal. Discussed with Dr. Ardon. He also examined patient. [place] the patient's temperature increased lipase, repeat lipase in the morning and further evaluation due to this abdominal pain increased stools. (Amina Sepulveda) Medical decision making; the patient's here because of watery stool. Cramping per patient. lipase elevated 386. Examination finds mild tenderness with palpation of the abdomen. X-ray does not show acute obstruction. I discussed the case with Dr. Leal, the patient's surgeon, he wants patient admitted to him with medical consult. Dr. Ardon (Marcellus Ardon) - Lab Data Lab Results 06/06/17 06/06/17 06/06/17 Range/Units 18:38 18:38 19:25 WBC 8.4 (3.8-10.6) k/uL RBC 4.01 (3.80-5.40) m/uL Hgb 11.4 (11.4-16.0) gm/dL Hct 35.8 (34.0-46.0) % MCV 89.2 (80.0-100.0) fL MCH 28.4 (25.0-35.0) pg MCHC 31.9 (31.0-37.0) g/dL RDW 14.7 (11.5-15.5) % Plt Count 178 (150-450) k/uL Neutrophils % 70 % Lymphocytes % 19 % Monocytes % 5 % Eosinophils % 4 % Basophils % 1 % Neutrophils # 5.9 (1.3-7.7) k/uL Lymphocytes # 1.6 (1.0-4.8) k/uL Monocytes # 0.4 (0-1.0) k/uL Eosinophils # 0.3 (0-0.7) k/uL Basophils # 0.1 (0-0.2) k/uL Sodium 141 (137-145) mmol/L Potassium 3.8 (3.5-5.1) mmol/L Chloride 108 H (98-107) mmol/L Carbon Dioxide 25 (22-30) mmol/L Anion Gap 8 mmol/L BUN 15 (7-17) mg/dL Creatinine 1.00 (0.52-1.04) mg/dL Est GFR (MDRD) Af Amer >60 (>60 ml/min/1.73 sqM) Est GFR (MDRD) Non-Af 55 (>60 ml/min/1.73 sqM) Glucose 93 (74-99) mg/dL Calcium 9.4 (8.4-10.2) mg/dL Total Bilirubin 0.3 (0.2-1.3) mg/dL AST 21 (14-36) U/L ALT 36 (9-52) U/L Alkaline Phosphatase 102 (38-126) U/L Total Protein 6.2 L (6.3-8.2) g/dL Albumin 3.5 (3.5-5.0) g/dL Amylase 108 (30-110) U/L Lipase 386 H (23-300) U/L Urine Color Light Yellow Urine Appearance Clear (Clear) Urine pH 5.5 (5.0-8.0) Ur Specific [place] 1.004 (1.001-1.035) Urine Protein Negative (Negative) Urine Glucose (UA) Negative (Negative) Urine Ketones Negative (Negative) Urine Blood Negative (Negative) Urine Nitrite Negative (Negative) Urine Bilirubin Negative (Negative) Urine Urobilinogen <2.0 (<2.0) mg/dL Ur Leukocyte Esterase Negative (Negative) - Radiology Data KUB x-rays reviewed and shows no evidence of any obstruction. (Amina Sepulveda) Disposition <Amina Sepulveda - Last Filed: 06/06/17 20:18> <Marcellus Ardon - Last Filed: 06/06/17 20:24> Clinical Impression: Pancreatitis, Diarrhea, Abdominal pain Disposition: ADMITTED IP TO THIS HOSP Referrals: Jerry Golden DO [Primary Care Provider] - 1-2 days
[2017-06-06 18:49] LABS: Basophils # (A) 0.1 k/uL (0-0.2); Basophils % (A) 1 %; Eosinophils # (A) 0.3 k/uL (0-0.7); Eosinophils % (A) 4 %; HCT 35.8 % (34.0-46.0); HGB 11.4 gm/dL (11.4-16.0); Lymphocytes # (A) 1.6 k/uL (1.0-4.8); Lymphocytes % (A) 19 %; MCH 28.4 pg (25.0-35.0); MCHC 31.9 g/dL (31.0-37.0); MCV 89.2 fL (80.0-100.0); Mean Platelet Volume 7.9; Monocytes # (A) 0.4 k/uL (0-1.0); Monocytes % (A) 5 %; Neutrophils # (A) 5.9 k/uL (1.3-7.7); Neutrophils % (A) 70 %; Platelet Count 178 k/uL (150-450); RBC 4.01 m/uL (3.80-5.40); RDW 14.7 % (11.5-15.5); WBC 8.4 k/uL (3.8-10.6)
[2017-06-06] MEDS: SODIUM CHLORIDE 0.9% 1,000 ML IV STA ×2 (18:56→23:33)
--- NOTE | 2017-06-06 19:00 | XR ---
EXAMINATION TYPE: XR KUB DATE OF EXAM: 06/06/2017 COMPARISON: 06/03/2017 HISTORY: Abdominal pain TECHNIQUE: 2 views FINDINGS: There is no sign of intestinal obstruction or pneumoperitoneum. Fecal pattern is normal. Th ere are coils apparently from hernia surgery. Lung bases are clear. There is no evidence of a mass. T here are no pathologic calcifications over the kidneys. IMPRESSION: Nonacute abdomen. No adverse change compared to old exam.
[2017-06-06 19:06] LABS: ALT 36 U/L (9-52); AST 21 U/L (14-36); Albumin 3.5 g/dL (3.5-5.0); Alkaline Phosphatase 102 U/L (38-126); Amylase 108 U/L (30-110); Anion Gap 8 mmol/L; Blood Urea Nitrogen 15 mg/dL (7-17); Calcium 9.4 mg/dL (8.4-10.2); Carbon Dioxide 25 mmol/L (22-30); Chloride 108 mmol/L (98-107); Glucose 93 mg/dL (74-99); Lipase 386 U/L (23-300); Potassium 3.8 mmol/L (3.5-5.1); Sodium 141 mmol/L (137-145); Total Bilirubin 0.3 mg/dL (0.2-1.3); Total Protein 6.2 g/dL (6.3-8.2)
[2017-06-06 19:44] LABS: Appearance,Urine Clear (Clear); Bilirubin,Urine Negative (Negative); Blood,Urine Negative (Negative); Color,Urine Light Yellow; Glucose,Urine (UA) Negative (Negative); Ketones,Urine Negative (Negative); Leukocyte Esterase,Urine Negative (Negative); Nitrite,Urine Negative (Negative); PH, Urine 5.5 (5.0-8.0); Protein,Urine Negative (Negative); Specific Gravity,Urine 1.004 (1.001-1.035); Urobilinogen,Urine <2.0 mg/dL (<2.0)
[2017-06-06] MEDS ORDERED: MORPHINE SULFATE 5 MG/ML SYRINGE IVP ONE (19:46)
[2017-06-06] MEDS ORDERED: ACETAMINOPHEN TAB 325 MG TAB PO PRN (20:18)
[2017-06-06] MEDS ORDERED: LORazepam 2 MG/ML INJ IV PRN (20:18)
[2017-06-06] MEDS ORDERED: NALOXONE 0.4 MG/ML 1 ML VIAL IV PRN (20:18)
[2017-06-06] MEDS ORDERED: ONDANSETRON 4 MG/2 ML VIAL IVP PRN (20:18)
[2017-06-06] MEDS ORDERED: IBUPROFEN 400 MG TAB PO PRN (20:18)
[2017-06-06] MEDS: SODIUM CHLORIDE 0.9% 1,000 ML IV SCH (23:33)
[2017-06-07] MEDS: SODIUM CHLORIDE 0.9% 1,000 ML IV SCH ×4 (06:19→23:22)
[2017-06-07 09:11] LABS: ALT 35 U/L (9-52); AST 19 U/L (14-36); Alkaline Phosphatase 97 U/L (38-126); Amylase 78 U/L (30-110); Anion Gap 8 mmol/L; Blood Urea Nitrogen 16 mg/dL (7-17); Calcium 8.9 mg/dL (8.4-10.2); Carbon Dioxide 22 mmol/L (22-30); Chloride 112 mmol/L (98-107); Glucose 130 mg/dL (74-99); Lipase 175 U/L (23-300); Sodium 142 mmol/L (137-145); Total Bilirubin 0.4 mg/dL (0.2-1.3); Total Protein 5.6 g/dL (6.3-8.2)
--- NOTE | 2017-06-07 16:21 | P.GSHP ---
History of Present Illness H&P Date: 06/07/17 Chief Complaint: Epigastric abdominal pain This is a 66-year-old female who sees Dr. Golden outpatient. The patient is well -known to myself. She's had a previous history of diverticulitis with low anterior section and then subsequent recurrent diverticulitis with Kera procedure. Patient also had a small bowel resection the last year due to a spontaneous small bowel perforation. The patient has complaints of epigastric abdominal pain. She denies any nausea or vomiting. However she states the pain is severe and crampy. Her colostomy is functional. Past Medical History Past Medical History: Asthma, Coronary Artery Disease (CAD), Heart Failure, Dementia, Diabetes Mellitus, Deep Vein Thrombosis (DVT), GERD/Reflux, Hyperlipidemia, Myocardial Infarction (NM), Osteoarthritis (OA), Pneumonia, Renal Disease, Seizure Disorder, Sleep Apnea/CPAP/BIPAP, Vascular Disorder Additional Past Medical History / Comment(s): Bronchial asthma, dementia, diabetes mellitus, hyperlipidemia, coronary artery disease with previous myocardial infarction, seizure disorder many years back and the patient has not been on seizure medication. 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 early onset parkinsons Last Myocardial Infarction Date:: 1991 History of Any Multi-Drug Resistant Organisms: None Reported Past Surgical History: Adenoidectomy, Appendectomy, Bowel Resection, Cholecystectomy, Hernia Repair, Hysterectomy, Joint Replacement, Orthopedic Surgery, Tonsillectomy Additional Past Surgical History / Comment(s): exploratory laparotomy and a small bowel resection (2017), partial colon resection with colostomy then reversal, SILVERIO KNEE ARTHROSCOPY, Right KNEE REPLACEMENT, EGDs and colonoscopies, lipomas off back, cyst off spine, eye duct surgery, cataracts Past Anesthesia/Blood Transfusion Reactions: Previous Problems w/ Anesthesia, Motion Sickness Additional Past Anesthesia/Blood Transfusion Reaction / Comment(s): DIFFICULTY WAKING UP. CLAUSTERPHOBIC Past Psychological History: Anxiety, Bipolar Additional Psychological History / Comment(s): DYSLEXIA but is able to read and write with some difficulty. Pt resides with her sisters, Reny who is also her legal guardian and other sister Michelle. They are her caretakers. Pt uses a walker to ambulate. She does not drive, Michelle takes her to appts. pt also has dementia and is deaf Smoking Status: Never smoker Past Alcohol Use History: None Reported Additional Past Alcohol Use History / Comment(s): STARTED SMOKNG AT AGE 16, SMOKED 1 CIG PER DAY QUIT 1982 Past Drug Use History: None Reported - Past Family History Father Family Medical History: Cancer Additional Family Medical History / Comment(s): Father had lung cancer. Mother Family Medical History: Congestive Heart Failure (CHF), Dementia, Myocardial Infarction (NM) Medications and Allergies Home Medications Medication Instructions Recorded Confirmed Type Albuterol Sulfate [Proair Hfa] 2 puff INHALATION RT-QID PRN 06/24/14 06/06/17 History Donepezil [Aricept] 10 mg PO DAILY 02/07/15 06/06/17 History Loratadine 10 mg PO DAILY 06/28/16 06/06/17 History Montelukast Sodium [Singulair] 10 mg PO DAILY 06/28/16 06/06/17 History Omeprazole [PriLOSEC] 20 mg PO HS 06/28/16 06/06/17 History risperiDONE [RisperDAL] 1 mg PO HS 08/16/16 06/06/17 History glipiZIDE [Glucotrol] 5 mg PO DAILY 09/03/16 06/06/17 History Sertraline [Zoloft] 50 mg PO DAILY 11/22/16 06/06/17 History Mirtazapine 7.5 mg PO HS #30 tablet 03/22/17 06/06/17 Rx Famotidine [Pepcid] 20 mg PO DAILY 06/03/17 06/06/17 History traMADol HCL [Ultram] 50 mg PO BID PRN 06/06/17 06/06/17 History Allergies Allergy/AdvReac Type Severity Reaction Status Date / Time codeine Allergy Rash/Hives Verified 06/06/17 17:16 lorazepam [From Ativan] Allergy Rash/Hives Verified 06/06/17 17:16 oxaprozin [From Daypro] Allergy Rash/Hives Verified 06/06/17 17:16 Sulfa (Sulfonamide Allergy Rash/Hives Verified 06/06/17 17:16 Antibiotics) baclofen AdvReac Unknown Psychotic Verified 06/06/17 18:23 Episode cyclobenzaprine HCl AdvReac Confusion Verified 06/06/17 18:23 [From Flexeril] Surgical - Exam Vital Signs Temp Pulse Resp BP Pulse Ox 97.1 F L 89 18 154/73 98 06/06/17 17:11 06/06/17 17:11 06/06/17 17:11 06/06/17 17:11 06/06/17 17:11 - General well developed, no distress - Eyes PERRL - ENT normal pinna - Neck no masses - Respiratory normal expansion - Cardiovascular Rhythm: regular - Abdomen Abdomen soft. There is mild pain in the epigastric area. There is no rebound or guarding. There is a large amount of liquid stool in the colostomy. Abdomen: soft Results - Labs 06/06/17 18:38 06/07/17 08:28 Abnormal Lab Results - Last 24 Hours (Table) 06/06/17 06/07/17 Range/Units 18:38 08:28 Chloride 108 H 112 H (98-107) mmol/L Glucose 130 H (74-99) mg/dL Total Protein 6.2 L 5.6 L (6.3-8.2) g/dL Albumin 3.0 L (3.5-5.0) g/dL Lipase 386 H (23-300) U/L Diabetes panel 06/06/17 06/07/17 Range/Units 18:38 08:28 Sodium 141 142 (137-145) mmol/L Potassium 3.8 4.0 (3.5-5.1) mmol/L Chloride 108 H 112 H (98-107) mmol/L Carbon Dioxide 25 22 (22-30) mmol/L BUN 15 16 (7-17) mg/dL Creatinine 1.00 0.97 (0.52-1.04) mg/dL Glucose 93 130 H (74-99) mg/dL Calcium 9.4 8.9 (8.4-10.2) mg/dL AST 21 19 (14-36) U/L ALT 36 35 (9-52) U/L Alkaline Phosphatase 102 97 (38-126) U/L Total Protein 6.2 L 5.6 L (6.3-8.2) g/dL Albumin 3.5 3.0 L (3.5-5.0) g/dL Calcium panel 06/06/17 06/07/17 Range/Units 18:38 08:28 Calcium 9.4 8.9 (8.4-10.2) mg/dL Albumin 3.5 3.0 L (3.5-5.0) g/dL Pituitary panel 06/06/17 06/07/17 Range/Units 18:38 08:28 Sodium 141 142 (137-145) mmol/L Potassium 3.8 4.0 (3.5-5.1) mmol/L Chloride 108 H 112 H (98-107) mmol/L Carbon Dioxide 25 22 (22-30) mmol/L BUN 15 16 (7-17) mg/dL Creatinine 1.00 0.97 (0.52-1.04) mg/dL Glucose 93 130 H (74-99) mg/dL Calcium 9.4 8.9 (8.4-10.2) mg/dL Adrenal panel 06/06/17 06/07/17 Range/Units 18:38 08:28 Sodium 141 142 (137-145) mmol/L Potassium 3.8 4.0 (3.5-5.1) mmol/L Chloride 108 H 112 H (98-107) mmol/L Carbon Dioxide 25 22 (22-30) mmol/L BUN 15 16 (7-17) mg/dL Creatinine 1.00 0.97 (0.52-1.04) mg/dL Glucose 93 130 H (74-99) mg/dL Calcium 9.4 8.9 (8.4-10.2) mg/dL Total Bilirubin 0.3 0.4 (0.2-1.3) mg/dL AST 21 19 (14-36) U/L ALT 36 35 (9-52) U/L Alkaline Phosphatase 102 97 (38-126) U/L Total Protein 6.2 L 5.6 L (6.3-8.2) g/dL Albumin 3.5 3.0 L (3.5-5.0) g/dL Assessment and Plan Assessment: Mild peritonitis with elevated amylase. The patient will remain nothing by mouth. We will start her diet in the a.m. if her pain is improved.
[2017-06-07] MEDS ORDERED: traMADol 50 MG TAB PO PRN (17:44)
[2017-06-07] MEDS: ALBUTEROL NEBULIZED 2.5 MG/3 ML INHALATION PRN (19:25)
--- NOTE | 2017-06-07 20:40 | CONS ---
CONSULTATION REASON FOR CONSULTATION: Advice regarding asthma and DVT and other multiple medical issues requested by Dr. Leal. HISTORY OF PRESENT ILLNESS: This 66-year-old woman with a past medical history of CAD, CHF, dementia, diabetes, DVT, GERD, myocardial infarction, DJD, history of seizure disorder being followed by Dr. Golden in the outpatient setting was admitted with abdominal pain. The pain is mostly situated in the epigastrium and amylase is elevated indicating some mild pancreatitis. The patient has some diarrhea also. There is no history of fever, rigors or chills. No history of headache, loss of consciousness, seizures. PAST MEDICAL HISTORY: Asthma, CAD, dementia, DVT, multiple abdominal surgeries, history of diverticulitis, history of bronchial asthma. MEDICATIONS: Prior to admission include home medications: 1. Ultram 50 mg b.i.d. p.r.n. 2. Risperdal 1 mg p.o. q.h.s. 3. Remeron 7.5 mg q.h.s. 4. Loratadine 10 mg p.o. daily. 5. Pro-Air HFA 2 puffs q.i.d. p.r.n. 6. Glucotrol 5 mg p.o. daily. 7. Zoloft 50 mg p.o. daily. 8. Singulair 10 mg p.o. daily. 9. Pepcid 20 mg b.i.d. 10.Aricept 10 mg. 11.Prilosec 20 mg q.h.s. ALLERGIES: CODEINE, LORAZEPAM, OXAPROZIN, SULFA, BACLOFEN, FLEXERIL. FAMILY HISTORY: History of lung cancer in the family. SOCIAL HISTORY: No history of smoking. No alcohol intake. REVIEW OF SYSTEMS: ENT: No diminished vision. No diminished hearing. Cardiovascular: No angina or palpitations. Respirations: As mentioned earlier. GI: As mentioned earlier. : No dysuria. Nervous system: No numbness, weakness. Allergy/Immunology: No asthma or hayfever. Musculoskeletal: As mentioned earlier. Hematology/Oncology: No history of anemia. Endocrine: Diabetes. Constitutional: As mentioned earlier. Dermatology: Negative. Rheumatology: Negative. Psychiatric: As mentioned earlier. PHYSICAL EXAMINATION: The patient is alert and oriented times three. Pulse 73, blood pressure 142/69, respiration 18, temperature 97.7, pulse ox 98% on room air. HEENT: Conjunctivae normal. Oral mucosa moist. Neck is no jugular venous distention. No carotid bruit. No lymph node enlargement. Cardiovascular S1, S2 muffled. Respiratory: Breath sounds diminished in the bases. A few scattered rhonchi. No crackles. ABDOMEN: Soft, minimal discomfort in the epigastrium. Otherwise no guarding, no rigidity. No mass palpable. Bowel sounds present. Legs no edema. No swelling. Central nervous system: Higher functions as mentioned earlier. Moves all four extremities. Lymphatics: No lymph nodes palpable in the neck, axillae or groin. Skin no ulcer, rash or bleeding. LABS: CBC within normal limits. Sodium 140, potassium 4. C diff is negative. The patient has significant output from the ostomy. ASSESSMENT: 1. Abdominal pain, epigastric possible mild pancreatitis. 2. Possible gastroenteritis. 3. Asthma. 4. Congestive heart failure. 5. Dementia. 6. History of diabetes type 2. 7. History deep vein thrombosis. 8. Gastroesophageal reflux disease. 9. Hyperlipidemia. 10.Myocardial infarction. 11.History of pneumonia. 12.History of seizure disorder. 13.History of sleep apnea. 14.History of bronchial asthma. 15.History of appendectomy. 16.History of bowel resection. 17.History of exploratory laparotomy and small bowel resection. 18.Anxiety bipolar. RECOMMENDATIONS AND DISCUSSION: In this 66-year-old woman who presented with multiple complex medical issues we will monitor the patient closely, continue the current medications, continue symptomatic treatment. We will initiate home medications. Otherwise continue to monitor. Closely follow with surgery. Guarded prognosis because of multiple complex medical issues. Further recommendations to follow. See orders for details. Repeat labs. MMODL / IJN: [id number] /
[2017-06-07] MEDS: HEPARIN SODIUM,PORCINE 5,000 UNIT/ML 1 ML VIAL SQ SCH (21:04)
[2017-06-07] MEDS: risperiDONE 1 MG TAB PO SCH (21:05)
[2017-06-07] MEDS: MIRTAZAPINE 15 MG TAB PO SCH (21:05)
[2017-06-07] MEDS: PANTOPRAZOLE 40 MG/10 ML VIAL IVP SCH (21:05)
[2017-06-08] MEDS: SERTRALINE 50 MG TAB PO SCH (08:18)
[2017-06-08] MEDS: PANTOPRAZOLE 40 MG/10 ML VIAL IVP SCH ×2 (08:18→20:23)
[2017-06-08] MEDS: HEPARIN SODIUM,PORCINE 5,000 UNIT/ML 1 ML VIAL SQ SCH ×2 (08:18→20:24)
[2017-06-08] MEDS: MONTELUKAST 10 MG TAB PO SCH (08:18)
[2017-06-08] MEDS: DONEPEZIL 10 MG TAB PO SCH (08:18)
[2017-06-08 08:24] LABS: Basophils # (A) 0.1 k/uL (0-0.2); Basophils % (A) 1 %; Eosinophils # (A) 0.2 k/uL (0-0.7); Eosinophils % (A) 4 %; HCT 34.6 % (34.0-46.0); HGB 10.9 gm/dL (11.4-16.0); Lymphocytes # (A) 1.1 k/uL (1.0-4.8); Lymphocytes % (A) 19 %; MCHC 31.4 g/dL (31.0-37.0); MCV 89.1 fL (80.0-100.0); Mean Platelet Volume 7.5; Monocytes # (A) 0.3 k/uL (0-1.0); Monocytes % (A) 5 %; Neutrophils # (A) 3.9 k/uL (1.3-7.7); Neutrophils % (A) 70 %; Platelet Count 170 k/uL (150-450); RBC 3.88 m/uL (3.80-5.40); RDW 14.1 % (11.5-15.5); WBC 5.6 k/uL (3.8-10.6)
[2017-06-08 08:45] LABS: ALT 34 U/L (9-52); AST 20 U/L (14-36); Albumin 3.2 g/dL (3.5-5.0); Alkaline Phosphatase 100 U/L (38-126); Amylase 79 U/L (30-110); Anion Gap 10 mmol/L; Blood Urea Nitrogen 10 mg/dL (7-17); Carbon Dioxide 20 mmol/L (22-30); Chloride 114 mmol/L (98-107); Glucose 111 mg/dL (74-99); Lipase 145 U/L (23-300); Potassium 3.7 mmol/L (3.5-5.1); Sodium 144 mmol/L (137-145); Total Bilirubin 0.5 mg/dL (0.2-1.3); Total Protein 5.8 g/dL (6.3-8.2)
--- NOTE | 2017-06-08 10:58 | P.PN ---
Progress Note - Text Progress Note Date: 06/08/17 Patient feels better. She has less abdominal pain this morning. On exam her vital signs are stable. Her abdomen soft. Patient was started on a full liquid diet. Hopefully she'll be discharged home tomorrow.
[2017-06-08] MEDS: ALBUTEROL NEBULIZED 2.5 MG/3 ML INHALATION PRN (11:37)
[2017-06-08] MEDS: KETOROLAC 30 MG/ML 1 ML VIAL IVP PRN ×2 (14:45→21:09)
[2017-06-08] MEDS: MORPHINE SULFATE 5 MG/ML SYRINGE IV PRN (15:09)
[2017-06-08] MEDS: SODIUM CHLORIDE 0.9% 1,000 ML IV SCH (15:59)
[2017-06-08] MEDS: MIRTAZAPINE 15 MG TAB PO SCH (20:24)
[2017-06-08] MEDS: risperiDONE 1 MG TAB PO SCH (20:24)
[2017-06-09] MEDS: SODIUM CHLORIDE 0.9% 1,000 ML IV SCH ×2 (04:09→16:19)
--- NOTE | 2017-06-09 07:45 | PN ---
PROGRESS NOTE DATE OF SERVICE: 06/08/2017 This 66-year-old woman who was admitted with abdominal pain has got probably a mild case of pancreatitis. The patient also had continued diarrheal liquid stools and possibly gastroenteritis also is a consideration. No chest pain. No palpitations. No fever. EXAM: Alert and oriented x2. Pulse 70, blood pressure 120/77, respiration 20, temperature 96.9, pulse ox 94% on room air. HEENT: Conjunctivae normal. NECK: No jugular venous distention. CARDIOVASCULAR: S1, S2 muffled. RESPIRATORY: Breath sounds diminished at the bases. A few scattered rhonchi. No crackles. ABDOMEN: Soft, nontender. No mass palpable. LEGS: No edema, no cyanosis. NERVOUS SYSTEM: No focal abscess. LABS: C diff is negative. CBC and BMP noted. ASSESSMENT: 1. Abdominal pain, epigastric pain, possibly mild pancreatitis. 2. Possible acute gastroenteritis. 3. Asthma history. 4. History of congestive heart failure. 5. Dementia. 6. History of diabetes mellitus type 2. 7. History of deep vein thrombosis. 8. History of gastroesophageal reflux disease. 9. Hyperlipidemia. 10.History of myocardial infarction. 11.History of pneumonia. 12.History of seizure disorder. 13.History of sleep apnea. 14.History of bronchial asthma. 15.History of appendectomy. 16.History of bowel resection. 17.History of exploratory laparotomy and small bowel resection. 18.History of anxiety bipolar. RECOMMENDATIONS AND DISCUSSION: I recommend to continue current medical management and symptomatic treatment. Otherwise advance diet per Surgery. Closely follow with Surgery. Further recommendations to follow. MMODL / IJN: [id number] /
[2017-06-09] MEDS: MONTELUKAST 10 MG TAB PO SCH (08:30)
[2017-06-09] MEDS: HEPARIN SODIUM,PORCINE 5,000 UNIT/ML 1 ML VIAL SQ SCH ×2 (08:30→21:32)
[2017-06-09] MEDS: DONEPEZIL 10 MG TAB PO SCH (08:30)
[2017-06-09] MEDS: SERTRALINE 50 MG TAB PO SCH (08:30)
[2017-06-09] MEDS: PANTOPRAZOLE 40 MG/10 ML VIAL IVP SCH ×2 (08:30→21:32)
[2017-06-09] MEDS: MORPHINE SULFATE 5 MG/ML SYRINGE IV PRN (08:35)
[2017-06-09 08:57] LABS: Basophils # (A) 0.1 k/uL (0-0.2); Basophils % (A) 1 %; Eosinophils # (A) 0.3 k/uL (0-0.7); Eosinophils % (A) 5 %; HCT 33.1 % (34.0-46.0); HGB 10.5 gm/dL (11.4-16.0); Lymphocytes # (A) 1.1 k/uL (1.0-4.8); Lymphocytes % (A) 20 %; MCH 28.8 pg (25.0-35.0); MCHC 31.6 g/dL (31.0-37.0); MCV 91.2 fL (80.0-100.0); Mean Platelet Volume 7.3; Monocytes # (A) 0.3 k/uL (0-1.0); Monocytes % (A) 5 %; Neutrophils # (A) 3.7 k/uL (1.3-7.7); Neutrophils % (A) 69 %; Platelet Count 177 k/uL (150-450); RBC 3.63 m/uL (3.80-5.40); RDW 13.1 % (11.5-15.5); WBC 5.4 k/uL (3.8-10.6)
[2017-06-09 09:19] LABS: ALT 29 U/L (9-52); AST 19 U/L (14-36); Alkaline Phosphatase 95 U/L (38-126); Amylase 64 U/L (30-110); Anion Gap 11 mmol/L; Blood Urea Nitrogen 8 mg/dL (7-17); Calcium 8.7 mg/dL (8.4-10.2); Carbon Dioxide 20 mmol/L (22-30); Chloride 112 mmol/L (98-107); Glucose 143 mg/dL (74-99); Lipase 87 U/L (23-300); Potassium 3.5 mmol/L (3.5-5.1); Sodium 143 mmol/L (137-145); Total Bilirubin 0.3 mg/dL (0.2-1.3); Total Protein 5.5 g/dL (6.3-8.2)
[2017-06-09] MEDS ORDERED: RX INFO: IV CONTRAST WAS GIVEN 1 EACH MISC MISCELLANE PRN (11:23)
--- NOTE | 2017-06-09 11:23 | P.PN ---
Progress Note - Text Progress Note Date: 06/09/17 The patient had her diet advanced yesterday. She had some complaints of abdominal pain yesterday afternoon. She still has some mild epigastric pain today. On exam her vital signs are stable. Her abdomen is soft. There is some tenderness the epigastric. Her stoma is functioning. Patient will remain on clear liquid diet. Patient will undergo computed tomography scan today to evaluate a source for pain.
[2017-06-09] MEDS: IOHEXOL 350 MG/ML 25 ML BOTTLE (ORAL USE) PO PRN ×2 (11:59→13:04)
[2017-06-09] MEDS: risperiDONE 1 MG TAB PO SCH (21:33)
[2017-06-09] MEDS: MIRTAZAPINE 15 MG TAB PO SCH (21:33)
[2017-06-10 01:50] VITALS: RESP 16; TEMP 97.3
[2017-06-10] MEDS: SODIUM CHLORIDE 0.9% 1,000 ML IV SCH (07:43)
--- NOTE | 2017-06-10 07:43 | PN ---
PROGRESS NOTE DATE OF SERVICE: 06/09/2017 This is a 66-year-old woman who was admitted with multiple medical problems including abdominal pain, epigastric pain, also had mild pancreatitis. Dr. Leal has recommended a CAT scan of the abdomen. Patient continues to have some abdominal pain. No chest pain, no palpitation. PHYSICAL EXAM: Pulse 69, blood pressure 140/76, respiratory 20, temperature 98.1, pulse ox 97% on room air. HEENT: Conjunctive normal. NECK: No jugular venous distension. CARDIOVASCULAR SYSTEM; S1, S2, muffled. RESPIRATORY SYSTEM: Breath sounds diminished at the bases. No rhonchi, no crackles. Abdomen is soft, nontender. LEGS: Soft, mild diffuse discomfort. Legs no edema, no welling. LABS: WBC is 5.3, hemoglobin is 10.5. ASSESSMENT: 1. Abdominal pain, epigastric pain with possible mild pancreatitis. 2. Possible acute gastroenteritis with continued abdominal pain. 3. Asthma history. 4. History of congestive heart failure. 5. Dementia. 6. History of diabetes type 2. 7. History of deep vein thrombosis. 8. History of gastroesophageal reflux disease. 9. Hyperlipidemia. 10.History of myocardial infarction. 11.History of pneumonia. 12.History of seizure disorder. 13.Sleep apnea. 14.History of bronchial asthma. 15.History appendectomy to monitor. CAT scan has been ordered. Further recommendations to follow. MMODL / IJN: [id number] /
--- NOTE | 2017-06-10 08:32 | CT ---
EXAMINATION TYPE: CT abdomen pelvis w con DATE OF EXAM: 06/09/2017 HISTORY: Patient poor historian. Epigastric abdominal pain. CT DLP: 434.6mGycm Automated Exposure Control for Dose Reduction was Utilized. CONTRAST: CT scan of the abdomen and pelvis is performed with oral and with IV Contrast, patient injected with 100 mL of Omnipaque 300. COMPARISON: CT abdomen and pelvis June 03, 2017 FINDINGS: LUNG BASES: No significant abnormality is appreciated. LIVER/GB: Cholecystectomy clips are redemonstrated. PANCREAS: No significant abnormality is seen. SPLEEN: No significant abnormality is seen. ADRENALS: No significant abnormality is seen. KIDNEYS: No significant abnormality is seen. BOWEL: There is persistent small to moderate size hiatal hernia with mild wall thickening less promin ent versus prior. There is redemonstration of left mid abdominal colostomy. There are diverticula in the right colon. There is no suspicious small or large bowel dilatation. There is prominent rectal po uch which contains a few diverticula in the pelvis. There is no convincing CT evidence for acute dive rticulitis. UTERUS/ADNEXA: Uterus is suspected surgically absent. There is slight heterogeneous prominent cervica l remnant redemonstrated. LYMPH NODES: No greater than 1cm abdominal or pelvic lymph nodes are appreciated. OSSEOUS STRUCTURES: Underlying scoliosis is redemonstrated. There is [id number] spurring in the thoracolumbar spine. OTHER: There are numerous coils from a ventral wall hernia repair surgery in the anterior abdominal w all. Vertical scar is noted. No recurrent hernia is seen. IMPRESSION: No bowel obstruction is seen. No significant new or acute finding is seen to account for patient's clinical symptoms.
[2017-06-10 08:34] VITALS: BP 134/65; PULSE 63
[2017-06-10] MEDS: SERTRALINE 50 MG TAB PO SCH (08:44)
[2017-06-10] MEDS: MONTELUKAST 10 MG TAB PO SCH (08:44)
[2017-06-10] MEDS: DONEPEZIL 10 MG TAB PO SCH (08:44)
[2017-06-10] MEDS: PANTOPRAZOLE 40 MG/10 ML VIAL IVP SCH (08:44)
[2017-06-10] MEDS: HEPARIN SODIUM,PORCINE 5,000 UNIT/ML 1 ML VIAL SQ SCH (08:44)
[2017-06-10 08:55] LABS: Basophils # (A) 0.1 k/uL (0-0.2); Basophils % (A) 1 %; Eosinophils # (A) 0.3 k/uL (0-0.7); Eosinophils % (A) 3 %; HGB 11.2 gm/dL (11.4-16.0); Lymphocytes # (A) 0.9 k/uL (1.0-4.8); Lymphocytes % (A) 11 %; MCH 28.9 pg (25.0-35.0); MCV 90.4 fL (80.0-100.0); Mean Platelet Volume 7.8; Monocytes # (A) 0.3 k/uL (0-1.0); Monocytes % (A) 4 %; Neutrophils # (A) 6.4 k/uL (1.3-7.7); Neutrophils % (A) 80 %; Platelet Count 156 k/uL (150-450); RBC 3.87 m/uL (3.80-5.40); RDW 14.3 % (11.5-15.5); WBC 7.9 k/uL (3.8-10.6)
[2017-06-10 09:15] LABS: ALT 37 U/L (9-52); AST 23 U/L (14-36); Albumin 3.2 g/dL (3.5-5.0); Alkaline Phosphatase 115 U/L (38-126); Amylase 60 U/L (30-110); Anion Gap 11 mmol/L; Blood Urea Nitrogen 7 mg/dL (7-17); Carbon Dioxide 21 mmol/L (22-30); Chloride 109 mmol/L (98-107); Glucose 95 mg/dL (74-99); Lipase 64 U/L (23-300); Potassium 3.3 mmol/L (3.5-5.1); Sodium 141 mmol/L (137-145); Total Bilirubin 0.3 mg/dL (0.2-1.3); Total Protein 5.7 g/dL (6.3-8.2)
[2017-06-10] MEDS: POTASSIUM CHLORIDE ER 20 MEQ TAB.ER PO SCH ×3 (09:45→13:04)
--- NOTE | 2017-06-10 10:00 | P.PN ---
Subjective Progress Note Date: 06/10/17 66-year-old female who presented to the emergency room on 06/06/2017 with a chief complaint of abdominal pain and increased output from her ostomy. She is admitted to the hospital under the care of Dr. Leal. Dr. Golden has been consulted for medical management. The patient underwent a KUB x-ray which was negative for acute abdomen. Stool for C. diff was negative. CT of the abdomen completed on 06/09/2017 reveals persistent small to moderate size hiatal hernia with mild wall thickening, diverticula in the right colon, no suspicious small or large bowel dilation, there is a prominent rectal pouch which contains a few diverticula in the pelvis , and no evidence of a bowel obstruction was visualized. The patient was seen and examined at the bedside on rounds with Dr. Golden. She is very sleepy this morning, but she states she is not feeling much better this morning. She remains on a clear liquid diet. She states she has been tolerating clear liquids without nausea or vomiting. She is requesting for her diet to be advanced. She states her abdominal pain has improved and she denies abdominal pain at this time. Her ostomy is functioning and a small amount of brown liquid stool is present. She denies chest pain or pressure. Denies shortness of breath. Her vital signs have been stable. She is afebrile. Her last blood pressure is 134/65. She is on room air with an oxygen saturation greater than 92%. WBC this morning is 7.9. Hemoglobin is stable at 11.2. Potassium is 3.3. Amylase is 60. Lipase is 64. Objective - Vital Signs Vital signs: Vital Signs Temp 97.3 F L 06/10/17 07:00 Pulse 63 06/10/17 08:00 Resp 16 06/10/17 08:00 BP 134/65 06/10/17 07:00 Pulse Ox 93 L 06/10/17 07:00 Intake & Output 06/09/17 06/10/17 06/10/17 18:59 06:59 18:59 Intake Total 240 225 Output Total 300 600 Balance -60 -375 Weight 62.5 kg Intake: IV 225 Sodium Chloride 0.9% 1, 225 000 ml @ 75 mls/hr IV . [id number] GABRIEL Rx#:[id number] Oral 240 Output: Stool 300 600 Other: # Voids 3 2 - Exam GENERAL: This is a 66-year-old female in no apparent distress at the time of examination. She is very sleepy at the time of of examination but is pleasant and cooperative. HEENT: Head is atraumatic, normocephalic. Pupils are equal, round, and reactive to light. Sclerae anicteric. Conjunctivae are clear. Mucus membranes of the mouth are moist. Neck is supple. RESPIRATORY: Clear to ausculation. No wheezes, rales, or rhonchi. No use of accessory muscles. Patient maintaining oxygen saturation greater than 92% on room air. No chest wall tenderness is noted on palpation or with deep breathing. CARDIOVASCULAR: Regular rate and rhythm. S1 and S2 noted. No JVD noted. No S3 or S4 noted. GASTROINTESTINAL: Ostomy to left lower quadrant noted. No distention noted. Abdomen soft and round. Bowel sounds auscultated x 4 quadrants. No pain or tenderness noted upon palpation. INTEGUMENTARY: No cyanosis. No jaundice. No rashes noted. No cellulitis noted. EXTREMITIES: 2+ peripheral pulses. No evidence of peripheral edema. No calf tenderness noted. NEUROLOGIC: Cranial nerves II-XII intact. PSYCHIATRIC: Oriented to self. Pleasantly confused. - Labs CBC & Chem 7: 06/10/17 08:03 06/10/17 08:03 Labs: Abnormal Lab Results - Last 24 Hours (Table) 06/09/17 06/10/17 06/10/17 Range/Units 08:26 08:03 08:03 Hgb 11.2 L (11.4-16.0) gm/dL Lymphocytes # 0.9 L (1.0-4.8) k/uL Potassium 3.3 L (3.5-5.1) mmol/L Chloride 112 H 109 H (98-107) mmol/L Carbon Dioxide 20 L 21 L (22-30) mmol/L Glucose 143 H (74-99) mg/dL Total Protein 5.5 L 5.7 L (6.3-8.2) g/dL Albumin 3.0 L 3.2 L (3.5-5.0) g/dL Assessment and Plan Plan: ASSESSMENT: Acute abdominal pain with increased stool output, possible gastroenteritis, Stool for c-diff negative, CT abdomen reveals diverticula and hiatal hernia but is negative for bowel obstruction Mild pancreatitis, now resolved with normalized amylase and lipase History of exploratory laparotomy, lysis of adhesions, and small bowel resection in November 2016 History of exploratory laparotomy, lysis of adhesions, small bowel resection, appendectomy, and sigmoid colectomy with end colostomy in March 2017 Chronic diastolic congestive heart failure, most recent echocardiogram reveals EF greater than 55% Hypokalemia, likely secondary to increased stool output History of gastroesophageal reflux disease History of diabetes mellitus, type II, hemoglobin A1c pending History of dementia History of coronary artery disease with previous myocardial infarction Hyperlipidemia History of seizure disorder, not maintained on antiseizure medications with last seizure occurring in the 1970s Obesity: BMI 32.0 PLAN: -Continue management per Dr. Leal -Advance diet if okay with surgery -Replace potassium -Continue to monitor output from ostomy -Home meds as appropriate -Obtain hemoglobin A1c -Capillary blood glucose Accu-Cheks before meals and at bedtime -NovoLog sliding scale coverage before meals and at bedtime -Monitor labs -Activity as tolerated -Consult PT for evaluation -GI prophylaxis: Protonix 40 mg IV twice a day -DVT prophylaxis: Heparin 5000 units subcu every 12 hours -Monitor vital signs and address as appropriate -Discharge planning: Patient lives with her sisters who help care for her. Denies need for home care. -Further recommendations pending patient's course Nurse practitioner note has been reviewed by physician. Signing provider agrees with the documented findings, assessment, and plan of care.
--- NOTE | 2017-06-10 11:57 | P.PN ---
Subjective Progress Note Date: 06/10/17 66-year-old female seen and examined sitting at the nurses station coloring in a coloring book pleasant cooperative oriented to self and place no recall of event. CAT scan of the abdomen pelvis done on the seventh show no bowel obstruction. Shows small to moderate size hiatal hernia No significant new or acute findings. Ostomy noted to have stool tolerating diet currently denying abdominal pain currently tolerating a full liquid diet Objective - Vital Signs Vital signs: Vital Signs Temp 97.3 F L 06/10/17 07:00 Pulse 63 06/10/17 08:00 Resp 16 06/10/17 08:00 BP 134/65 06/10/17 07:00 Pulse Ox 93 L 06/10/17 07:00 Intake & Output 06/09/17 06/10/17 06/10/17 18:59 06:59 18:59 Intake Total 240 225 Output Total 300 600 Balance -60 -375 Weight 62.5 kg Intake: IV 225 Sodium Chloride 0.9% 1, 225 000 ml @ 75 mls/hr IV . [id number] GABRIEL Rx#:[id number] Oral 240 Output: Stool 300 600 Other: # Voids 3 2 - Exam Physical exam 66-year-old female sitting up in a chair at the nurses station pleasant cooperative oriented to self and place Lungs adequate air movement bilaterally on room air Heart S1-S2 audible and regular Abdomen ostomy left lower quadrant moderate amount of stool in the ostomy bag soft nondistended tolerating diet no nausea no vomiting Extremities no edema noted - Labs CBC & Chem 7: 06/10/17 08:03 06/10/17 08:03 Labs: Abnormal Lab Results - Last 24 Hours (Table) 06/10/17 06/10/17 Range/Units 08:03 08:03 Hgb 11.2 L (11.4-16.0) gm/dL Lymphocytes # 0.9 L (1.0-4.8) k/uL Potassium 3.3 L (3.5-5.1) mmol/L Chloride 109 H (98-107) mmol/L Carbon Dioxide 21 L (22-30) mmol/L Total Protein 5.7 L (6.3-8.2) g/dL Albumin 3.2 L (3.5-5.0) g/dL Assessment and Plan Assessment: Impression Acute abdominal pain with increased stool output, possible gastroenteritis, Stool for c-diff negative, CT abdomen reveals diverticula and hiatal hernia but is negative for bowel obstruction Mild pancreatitis, now resolved with normalized amylase and lipase History of exploratory laparotomy, lysis of adhesions, and small bowel resection in November 2016 History of expiratory laparotomy, lysis of adhesions, small bowel resection, appendectomy, and sigmoid colectomy with end colostomy in March 2017 Chronic diastolic congestive heart failure, most recent echocardiogram reveals EF greater than 55% Hypokalemia, likely secondary to increased stool output History of gastroesophageal reflux disease History of diabetes mellitus, type II, hemoglobin A1c pending History of dementia History of coronary artery disease with previous myocardial infarction Hyperlipidemia History of seizure disorder, not maintained on antiseizure medications with last seizure occurring in the 1970s Obesity: BMI 32.0 Plan Diet to be advanced Potassium to be replaced discharge soon The above impression and plan of care have been discussed and directed by signing physician. Danuta Ocampo nurse practitioner acting as scribe for signing physician.
[2017-06-10 12:21] LABS: Glucose,Whole Blood 102 mg/dL (75-99)
[2017-06-10] MEDS ORDERED: INSULIN ASPART 100 UNIT/ML 1 ML 10 ML VIAL SQ SCH (12:30)
--- NOTE | 2017-06-10 14:21 | P.DS ---
Providers Date of admission: 06/06/17 20:52 Expected date of discharge: 06/10/17 Attending physician: Jose Juan Leal Consults: 06/06/17 20:25 Consult Physician Routine Consulting Provider: Rock Henson Consult Reason/Comments: pancreatitis Do you want consulting provider notified?: Yes Primary care physician: [facility] Course: 66-year-old female presented to the emergency room on the day of admission with a chief complaint of abdominal pain nausea vomiting. Patient had a KUB was negative for an acute abdomen. Stool for C. diff was negative. CAT scan of the abdomen on June 09 showed moderate size hiatal hernia, diverticuli right colon, no suspicious bowel obstruction. Patient was started on bowel rest IV hydration diet was slowly advanced ostomy continued to function small amount of brown liquid. White count on the day of discharge 7.9 hemoglobin stable 11.2 potassium 3.3 which was replaced. Amylase 60. Lipase 64. Patient was felt to be back to baseline. And appropriate proceed with a discharge to home Impression discharge diagnosis Acute abdominal pain with increased stool output, possible gastroenteritis Mild pancreatitis, now resolved with normalized amylase and lipase History of exploratory laparotomy, lysis of adhesions, and small bowel resection in November 2016 laparotomy, lysis of adhesions, small bowel resection, appendectomy, and sigmoid colectomy with end colostomy in March 2017 Chronic diastolic congestive heart failure, compensated EF 55 on a recent echo Hypokalemia, likely secondary to increased stool output gastroesophageal reflux disease diabetes mellitus, type II, hemoglobin A1c pending dementia with no behavior disturbance History of coronary artery disease with previous myocardial infarction Hyperlipidemia History of seizure disorder, not maintained on antiseizure medications with last seizure occurring in the 1970s Obesity: BMI 32.0 The above impression and plan of care have been discussed and directed by signing physician. Danuta Ocampo nurse practitioner acting as scribe for signing physician. Plan - Discharge Summary New Discharge Prescriptions: Continue Albuterol Sulfate [Proair Hfa] 2 puff INHALATION RT-QID PRN PRN Reason: Shortness Of Breath Donepezil [Aricept] 10 mg PO DAILY Montelukast Sodium [Singulair] 10 mg PO DAILY Omeprazole [PriLOSEC] 20 mg PO HS Loratadine 10 mg PO DAILY risperiDONE [RisperDAL] 1 mg PO HS glipiZIDE [Glucotrol] 5 mg PO DAILY Sertraline [Zoloft] 50 mg PO DAILY Mirtazapine 7.5 mg PO HS #30 tablet Famotidine [Pepcid] 20 mg PO DAILY traMADol HCL [Ultram] 50 mg PO BID PRN PRN Reason: Pain Discharge Medication List Albuterol Sulfate [Proair Hfa] 2 puff INHALATION RT-QID PRN 06/24/14 [History] Donepezil [Aricept] 10 mg PO DAILY 02/07/15 [History] Loratadine 10 mg PO DAILY 06/28/16 [History] Montelukast Sodium [Singulair] 10 mg PO DAILY 06/28/16 [History] Omeprazole [PriLOSEC] 20 mg PO HS 06/28/16 [History] risperiDONE [RisperDAL] 1 mg PO HS 08/16/16 [History] glipiZIDE [Glucotrol] 5 mg PO DAILY 09/03/16 [History] Sertraline [Zoloft] 50 mg PO DAILY 11/22/16 [History] Mirtazapine 7.5 mg PO HS #30 tablet 03/22/17 [Rx] Famotidine [Pepcid] 20 mg PO DAILY 06/03/17 [History] traMADol HCL [Ultram] 50 mg PO BID PRN 06/06/17 [History] Follow up Appointment(s)/Referral(s): Jerry Golden DO [Primary Care Provider] - 3 Days Jose Juan Leal MD [STAFF PHYSICIAN] - 06/14/17 Patient Instructions/Handouts: Heart Failure (DC), Pancreatitis (DC), Type 2 Diabetes in Adults (DC) Discharge Disposition: HOME SELF-CARE
[2017-06-10 16:35] LABS: Hemoglobin A1C 4.7 % (4.0-6.0)
[2017-06-11] MEDS ORDERED: glipiZIDE 5 MG TAB PO SCH (07:30)
== END 2017-06-10 16:45 | disposition home or self-care (01) ==
LOC: EC 17:10 → 4MS4W 20:52
PROVIDERS: ADMIT Surgery; ATTEND Surgery
DX: K85.90 Acute pancreatitis without necrosis or infection, unspecified (principal); I25.10 Atherosclerotic heart disease of native coronary artery without angina pectoris; E78.5 Hyperlipidemia, unspecified; E87.6 Hypokalemia; K21.9 Gastro-esophageal reflux disease without esophagitis; E66.9 Obesity, unspecified; I50.32 Chronic diastolic (congestive) heart failure; J45.909 Unspecified asthma, uncomplicated; I25.2 Old myocardial infarction; M19.90 Unspecified osteoarthritis, unspecified site; F03.90 Unspecified dementia, unspecified severity, without behavioral disturbance, psychotic disturbance, mood disturbance, and anxiety; G47.33 Obstructive sleep apnea (adult) (pediatric); D64.9 Anemia, unspecified; F31.9 Bipolar disorder, unspecified; F41.9 Anxiety disorder, unspecified; E11.51 Type 2 diabetes mellitus with diabetic peripheral angiopathy without gangrene; G20 Parkinson's disease; H91.90 Unspecified hearing loss, unspecified ear; R48.0 Dyslexia and alexia; Z68.32 Body mass index [BMI] 32.0-32.9, adult; Z93.3 Colostomy status; Z79.899 Other long term (current) drug therapy; Z79.84 Long term (current) use of oral hypoglycemic drugs; Z88.5 Allergy status to narcotic agent; Z88.2 Allergy status to sulfonamides; Z88.8 Allergy status to other drugs, medicaments and biological substances; Z91.81 History of falling; Z86.718 Personal history of other venous thrombosis and embolism; Z99.89 Dependence on other enabling machines and devices; Z82.49 Family history of ischemic heart disease and other diseases of the circulatory system; Z90.49 Acquired absence of other specified parts of digestive tract; Z87.891 Personal history of nicotine dependence; Z87.01 Personal history of pneumonia (recurrent); Z86.69 Personal history of other diseases of the nervous system and sense organs; K44.9 Diaphragmatic hernia without obstruction or gangrene; K57.30 Diverticulosis of large intestine without perforation or abscess without bleeding
CPT/HCPCS: 96376 ×3; 96361 ×5; 96372 ×4; 96375 ×2; 96374; 99285; 36415; 94640 ×2; 97161; 80053 ×5; 82150 ×5; 83690 ×5; 85025 ×4; 81003; 87324; 83036; 74018; 74177; G0378 ×5; A4425 ×3; A4413 ×2; A4371 ×2; J1644 ×4; Q9967; J1885 ×2; C9113 ×4; J2274 ×3

== ENCOUNTER 2017-06-12 11:01 | Observation (INO) | payer MEDICARE, OTHER ==
[2017-06-12] MEDS ORDERED: HYDROmorphone 1 MG/ML 1 ML SYRINGE IVP STA ×2 (11:35→14:37)
[2017-06-12] MEDS ORDERED: SODIUM CHLORIDE 0.9% 1,000 ML IV STA (11:35)
[2017-06-12] MEDS ORDERED: RX INFO: IV CONTRAST WAS GIVEN 1 EACH MISC MISCELLANE PRN (11:35)
--- NOTE | 2017-06-12 11:52 | ED ---
General Adult HPI - General Chief complaint: Skin/Abscess/Foreign Body Stated complaint: STOMA SIGHT PAIN Time Seen by Provider: 06/12/17 11:17 Source: patient, family, RN notes reviewed, old records reviewed Mode of arrival: wheelchair Limitations: no limitations - History of Present Illness Initial comments: 60 sexual female presenting for evaluation of abdominal pain. Patient is status post colon resection secondary to diverticulitis and diverticulosis. She was recently admitted to the hospital with similar pain. She went home 2 days ago. Patient states her pain has been persistent since the time of discharge. She has had no nausea or vomiting. She has had yellow liquid output from her ostomy. Pain according to the patient's family member who is at bedside is located just below the ostomy. This is where it has been present throughout the course. Patient denies any blood in her stool. Denies any chest pain. She has had some mild shortness of breath. Patient has additional past medical history of dementia, Parkinson's, and diabetes. - Related Data Home Medications Medication Instructions Recorded Confirmed Albuterol Sulfate [Proair Hfa] 2 puff INHALATION RT-QID PRN 06/24/14 06/12/17 Donepezil [Aricept] 10 mg PO DAILY 02/07/15 06/12/17 Loratadine 10 mg PO DAILY 06/28/16 06/12/17 Montelukast Sodium [Singulair] 10 mg PO DAILY 06/28/16 06/12/17 Omeprazole [PriLOSEC] 20 mg PO HS 06/28/16 06/12/17 risperiDONE [RisperDAL] 1 mg PO HS 08/16/16 06/12/17 glipiZIDE [Glucotrol] 5 mg PO DAILY 09/03/16 06/12/17 Sertraline [Zoloft] 50 mg PO DAILY 11/22/16 06/12/17 Famotidine [Pepcid] 20 mg PO DAILY 06/03/17 06/12/17 traMADol HCL [Ultram] 50 mg PO BID PRN 06/06/17 06/12/17 Memantine HCl [Namenda Xr] 28 mg PO DAILY 06/12/17 06/12/17 Mirtazapine [Remeron] 7.5 mg PO HS 06/12/17 06/12/17 Allergies Allergy/AdvReac Type Severity Reaction Status Date / Time codeine Allergy Rash/Hives Verified 06/12/17 11:57 lorazepam [From Ativan] Allergy Rash/Hives Verified 06/12/17 11:57 oxaprozin [From Daypro] Allergy Rash/Hives Verified 06/12/17 11:57 Sulfa (Sulfonamide Allergy Rash/Hives Verified 06/12/17 11:57 Antibiotics) baclofen AdvReac Unknown Psychotic Verified 06/12/17 11:57 Episode cyclobenzaprine HCl AdvReac Confusion Verified 06/12/17 11:57 [From Flexeril] Review of Systems ROS Statement: Those systems with pertinent positive or pertinent negative responses have been documented in the HPI. ROS Other: All systems not noted in ROS Statement are negative. Past Medical History Past Medical History: Asthma, Coronary Artery Disease (CAD), Heart Failure, Dementia, Diabetes Mellitus, Deep Vein Thrombosis (DVT), GERD/Reflux, Hyperlipidemia, Myocardial Infarction ([place]), Osteoarthritis (OA), Pneumonia, Renal Disease, Seizure Disorder, Sleep Apnea/CPAP/BIPAP, Vascular Disorder Additional Past Medical History / Comment(s): Bronchial asthma, dementia, diabetes mellitus, hyperlipidemia, coronary artery disease with previous myocardial infarction, seizure disorder many years back and the patient has not been on seizure medication. 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 early onset parkinsons Last Myocardial Infarction Date:: 1991 History of Any Multi-Drug Resistant Organisms: None Reported Past Surgical History: Adenoidectomy, Appendectomy, Bowel Resection, Cholecystectomy, Hernia Repair, Hysterectomy, Joint Replacement, Orthopedic Surgery, Tonsillectomy Additional Past Surgical History / Comment(s): exploratory laparotomy and a small bowel resection (2017), partial colon resection with colostomy then reversal, SILVERIO KNEE ARTHROSCOPY, Right KNEE REPLACEMENT, EGDs and colonoscopies, lipomas off back, cyst off spine, eye duct surgery, cataracts Past Anesthesia/Blood Transfusion Reactions: Previous Problems w/ Anesthesia, Motion Sickness Additional Past Anesthesia/Blood Transfusion Reaction / Comment(s): DIFFICULTY WAKING UP. CLAUSTERPHOBIC Past Psychological History: Anxiety, Bipolar Smoking Status: Never smoker Past Alcohol Use History: None Reported Past Drug Use History: None Reported - Past Family History Father Family Medical History: Cancer Additional Family Medical History / Comment(s): Father had lung cancer. Mother Family Medical History: Congestive Heart Failure (CHF), Dementia, Myocardial Infarction ([place]) General Exam Limitations: no limitations General appearance: alert, in no apparent distress Head exam: Present: atraumatic, normocephalic Eye exam: Present: normal appearance, PERRL ENT exam: Present: mucous membranes dry Neck exam: Present: normal inspection. Absent: tenderness, meningismus Respiratory exam: Present: normal lung sounds bilaterally. Absent: respiratory distress, wheezes, rales Cardiovascular Exam: Present: regular rate, normal rhythm GI/Abdominal exam: Present: soft, distended, tenderness (generalized tenderness to palpation, minimal voluntary guarding), other (ostomy is pink with yellow liquid output). Absent: rebound, rigid Extremities exam: Present: normal inspection, normal capillary refill. Absent: pedal edema Neurological exam: Present: alert. Absent: motor sensory deficit Skin exam: Present: warm, dry, intact. Absent: cyanosis, diaphoretic Course Vital Signs 06/12/17 06/12/17 11:13 14:58 Temperature 97.7 F Pulse Rate 88 72 Respiratory 16 16 Rate Blood Pressure 129/64 132/68 O2 Sat by Pulse 98 95 Oximetry Medical Decision Making - Medical Decision Making 66 yo female with abdominal pain. Patient is tender throughout the abdomen, worse by her ostomy. No signs of infection, no fluctuance or induration. White blood cell count mildly elevated 11.1, hemoglobin stable 13.7, creatinine mildly elevated from baseline 1.08. Lipase normal, glucose low, patient is started on D5 [address] abdomen and pelvis is obtained, does showenteritis. This is consistent with stool output which is yellow liquid.C. difficile assay is negative. Case is discussed with Dr. Leal, patient will be admitted with general surgery on consult. Diagnosis: Enteritis, intractable abdominal pain - Lab Data Result diagrams: 06/12/17 12:06 06/12/17 12:06 Lab Results 06/12/17 06/12/17 06/12/17 Range/Units 12:06 12:06 12:06 WBC 11.1 H (3.8-10.6) k/uL RBC 4.88 (3.80-5.40) m/uL Hgb 13.7 (11.4-16.0) gm/dL Hct 44.4 (34.0-46.0) % MCV 91.0 (80.0-100.0) fL MCH 28.2 (25.0-35.0) pg MCHC 30.9 L (31.0-37.0) g/dL RDW 14.7 (11.5-15.5) % Plt Count 215 (150-450) k/uL Neutrophils % 78 % Lymphocytes % 12 % Monocytes % 5 % Eosinophils % 3 % Basophils % 1 % Neutrophils # 8.7 H (1.3-7.7) k/uL Lymphocytes # 1.4 (1.0-4.8) k/uL Monocytes # 0.6 (0-1.0) k/uL Eosinophils # 0.3 (0-0.7) k/uL Basophils # 0.1 (0-0.2) k/uL PT (9.0-12.0) sec INR (<1.2) APTT (22.0-30.0) sec Sodium 144 (137-145) mmol/L Potassium 4.2 (3.5-5.1) mmol/L Chloride 111 H (98-107) mmol/L Carbon Dioxide 23 (22-30) mmol/L Anion Gap 10 mmol/L BUN 15 (7-17) mg/dL Creatinine 1.08 H (0.52-1.04) mg/dL Est GFR (MDRD) Af Amer >60 (>60 ml/min/1.73 sqM) Est GFR (MDRD) Non-Af 51 (>60 ml/min/1.73 sqM) Glucose 55 L (74-99) mg/dL Plasma Lactic Acid Artie (0.7-2.0) mmol/L Calcium 9.7 (8.4-10.2) mg/dL Total Bilirubin 0.2 (0.2-1.3) mg/dL AST 21 (14-36) U/L ALT 22 (9-52) U/L Alkaline Phosphatase 105 (38-126) U/L Troponin I (0.000-0.034) ng/mL Total Protein 6.7 (6.3-8.2) g/dL Albumin 3.8 (3.5-5.0) g/dL Amylase 88 (30-110) U/L Lipase 236 (23-300) U/L C. difficile (EIA) Intrp Negative (Negative) 06/12/17 06/12/17 06/12/17 Range/Units 12:06 12:06 12:06 WBC (3.8-10.6) k/uL RBC (3.80-5.40) m/uL Hgb (11.4-16.0) gm/dL Hct (34.0-46.0) % MCV (80.0-100.0) fL MCH (25.0-35.0) pg MCHC (31.0-37.0) g/dL RDW (11.5-15.5) % Plt Count (150-450) k/uL Neutrophils % % Lymphocytes % % Monocytes % % Eosinophils % % Basophils % % Neutrophils # (1.3-7.7) k/uL Lymphocytes # (1.0-4.8) k/uL Monocytes # (0-1.0) k/uL Eosinophils # (0-0.7) k/uL Basophils # (0-0.2) k/uL PT 9.6 (9.0-12.0) sec INR 1.0 (<1.2) APTT 24.3 (22.0-30.0) sec Sodium (137-145) mmol/L Potassium (3.5-5.1) mmol/L Chloride (98-107) mmol/L Carbon Dioxide (22-30) mmol/L Anion Gap mmol/L BUN (7-17) mg/dL Creatinine (0.52-1.04) mg/dL Est GFR (MDRD) Af Amer (>60 ml/min/1.73 sqM) Est GFR (MDRD) Non-Af (>60 ml/min/1.73 sqM) Glucose (74-99) mg/dL Plasma Lactic Acid Artie 1.1 (0.7-2.0) mmol/L Calcium (8.4-10.2) mg/dL Total Bilirubin (0.2-1.3) mg/dL AST (14-36) U/L ALT (9-52) U/L Alkaline Phosphatase (38-126) U/L Troponin I <0.012 (0.000-0.034) ng/mL Total Protein (6.3-8.2) g/dL Albumin (3.5-5.0) g/dL Amylase (30-110) U/L Lipase (23-300) U/L C. difficile (EIA) Intrp (Negative) Disposition Clinical Impression: Enteritis, Intractable abdominal pain Disposition: ADMITTED IP TO THIS [facility] Condition: Stable Referrals: Jerry Golden DO [Primary Care Provider] - 1-2 days Decision to Admit Reason: Admit from EC Decision Date: 06/12/17 Decision Time: 15:22
[2017-06-12 12:31] LABS: Basophils # (A) 0.1 k/uL (0-0.2); Basophils % (A) 1 %; Eosinophils # (A) 0.3 k/uL (0-0.7); Eosinophils % (A) 3 %; HCT 44.4 % (34.0-46.0); HGB 13.7 gm/dL (11.4-16.0); Lymphocytes # (A) 1.4 k/uL (1.0-4.8); Lymphocytes % (A) 12 %; MCH 28.2 pg (25.0-35.0); MCHC 30.9 g/dL (31.0-37.0); Mean Platelet Volume 7.5; Monocytes # (A) 0.6 k/uL (0-1.0); Monocytes % (A) 5 %; Neutrophils # (A) 8.7 k/uL (1.3-7.7); Neutrophils % (A) 78 %; Platelet Count 215 k/uL (150-450); RBC 4.88 m/uL (3.80-5.40); RDW 14.7 % (11.5-15.5); WBC 11.1 k/uL (3.8-10.6)
[2017-06-12 12:39] LABS: Partial Thromboplastin Time 24.3 sec (22.0-30.0); Prothrombin Time 9.6 sec (9.0-12.0)
[2017-06-12 12:40] LABS: ALT 22 U/L (9-52); AST 21 U/L (14-36); Albumin 3.8 g/dL (3.5-5.0); Alkaline Phosphatase 105 U/L (38-126); Amylase 88 U/L (30-110); Anion Gap 10 mmol/L; Blood Urea Nitrogen 15 mg/dL (7-17); Calcium 9.7 mg/dL (8.4-10.2); Carbon Dioxide 23 mmol/L (22-30); Chloride 111 mmol/L (98-107); Glucose 55 mg/dL (74-99); Lipase 236 U/L (23-300); Potassium 4.2 mmol/L (3.5-5.1); Sodium 144 mmol/L (137-145); Total Bilirubin 0.2 mg/dL (0.2-1.3); Total Protein 6.7 g/dL (6.3-8.2)
--- NOTE | 2017-06-12 13:56 | CT ---
EXAMINATION TYPE: CT abdomen pelvis w con DATE OF EXAM: 06/12/2017 COMPARISON: Prior CT scan of the abdomen and pelvis dated 06/09/2017, 3 days prior and to CT scan 018 HISTORY: Stoma pain CT DLP: 1173 mGycm Automated exposure control for dose reduction was used. TECHNIQUE: Helical acquisition of images from the lung bases through the pelvis have been completed. CONTRAST: Performed without Oral Contrast and with IV Contrast, patient injected with 80 mL of Visipaque 320. FINDINGS: Some thickening of the distal esophagus is again noted, possible hiatal hernia as on prior. There is motion on the exam. LUNG BASES: No significant abnormality is appreciated. AORTA: No significant abnormality is appreciated. LIVER/GB: Stable compared to prior, patient is post cholecystectomy, there are mildly prominent intra hepatic biliary ducts and the portal vein is patent, no evident liver mass. PANCREAS: No significant abnormality is seen. SPLEEN: No significant abnormality is seen. ADRENALS: No significant abnormality is seen. KIDNEYS: No significant abnormality is seen. REPRODUCTIVE ORGANS: No significant abnormality is seen BOWEL: There is abnormal thickening of small bowel loops throughout much of the abdomen. Fluid-fille d appearance is present in many of the small bowel loops. Multiple foci of postoperative change prese nt involving the bowel as on previous exam, anterior abdominal wall shows postoperative change from a stoma present in the left lower quadrant as on prior. Extensive diverticular changes associated with the colon which show calcifications. Mesenteric vasculature appears patent FREE AIR: No Free Air visible. ASCITES: None visible. PELVIC ADENOPATHY: None visualized. RETROPERITONEAL ADENOPATHY: No Retroperitoneal Adenopathy visible. URINARY BLADDER: No significant abnormality is seen. OSSEOUS STRUCTURES: Nonunion of the anterior rib fractures present at the 10th and ninth ribs on the right ninth rib on the left anteriorly. Degenerative disc changes again noted within the visualized spine. IMPRESSION: FINDINGS SUGGEST ENTERITIS RATHER THAN ISCHEMIA, CORRELATE. ADDITIONAL FINDINGS ABOVE. POSTOP CHANGES . DIVERTICULOSIS.
[2017-06-12] MEDS ORDERED: NALOXONE 0.4 MG/ML 1 ML VIAL IV PRN (15:15)
[2017-06-12] MEDS ORDERED: HYDROmorphone 2 MG/ML 1 ML SYRINGE IVP PRN (15:15)
[2017-06-12] MEDS ORDERED: ONDANSETRON 4 MG/2 ML VIAL IVP PRN (15:15)
[2017-06-12] MEDS ORDERED: ALBUTEROL NEBULIZED 2.5 MG/3 ML INHALATION PRN (17:28)
[2017-06-12] MEDS: HYDROmorphone 2 MG/ML 1 ML SYRINGE IVP PRN ×2 (17:44→21:42)
[2017-06-12] MEDS: D5-0.45% NACL WITH KCL 20MEQ/L 1,000 ML IV SCH (17:44)
[2017-06-12] MEDS: MIRTAZAPINE 15 MG TAB PO SCH (21:43)
[2017-06-12] MEDS: risperiDONE 1 MG TAB PO SCH (21:45)
[2017-06-12 22:17] LABS: Glucose,Whole Blood 140 mg/dL (75-99)
[2017-06-13] MEDS: HEPARIN SODIUM,PORCINE 5,000 UNIT/ML 1 ML VIAL SQ SCH ×3 (02:03→16:33)
[2017-06-13] MEDS: D5-0.45% NACL WITH KCL 20MEQ/L 1,000 ML IV SCH ×2 (05:51→17:37)
[2017-06-13 07:25] LABS: Glucose,Whole Blood 123 mg/dL (75-99)
[2017-06-13] MEDS: MONTELUKAST 10 MG TAB PO SCH (08:27)
[2017-06-13] MEDS: DONEPEZIL 10 MG TAB PO SCH (08:27)
[2017-06-13] MEDS: MEMANTINE 10 MG TAB PO SCH ×2 (08:27→20:26)
[2017-06-13] MEDS: SERTRALINE 50 MG TAB PO SCH (08:27)
[2017-06-13] MEDS: FAMOTIDINE 20 MG TAB PO SCH (08:27)
[2017-06-13] MEDS: LORATADINE 10 MG TAB PO SCH (08:27)
[2017-06-13 08:28] LABS: Basophils # (A) 0.1 k/uL (0-0.2); Basophils % (A) 1 %; Eosinophils # (A) 0.3 k/uL (0-0.7); Eosinophils % (A) 3 %; HCT 37.6 % (34.0-46.0); HGB 12.1 gm/dL (11.4-16.0); Lymphocytes # (A) 1.4 k/uL (1.0-4.8); Lymphocytes % (A) 18 %; MCH 28.4 pg (25.0-35.0); MCHC 32.2 g/dL (31.0-37.0); MCV 88.3 fL (80.0-100.0); Mean Platelet Volume 7.2; Monocytes # (A) 0.4 k/uL (0-1.0); Monocytes % (A) 5 %; Neutrophils # (A) 5.6 k/uL (1.3-7.7); Neutrophils % (A) 72 %; Platelet Count 166 k/uL (150-450); RBC 4.26 m/uL (3.80-5.40); WBC 7.8 k/uL (3.8-10.6)
[2017-06-13 08:55] LABS: Anion Gap 10 mmol/L; Blood Urea Nitrogen 9 mg/dL (7-17); Calcium 8.9 mg/dL (8.4-10.2); Carbon Dioxide 17 mmol/L (22-30); Chloride 113 mmol/L (98-107); Glucose 124 mg/dL (74-99); Potassium 3.9 mmol/L (3.5-5.1); Sodium 140 mmol/L (137-145)
[2017-06-13] MEDS: traMADol 50 MG TAB PO PRN (09:58)
[2017-06-13 11:38] LABS: Glucose,Whole Blood 123 mg/dL (75-99)
[2017-06-13] MEDS: HYDROmorphone 2 MG/ML 1 ML SYRINGE IVP PRN (13:21)
--- NOTE | 2017-06-13 14:14 | P.HPIM ---
History of Present Illness H&P Date: 06/13/17 Chief Complaint: Abdominal pain 66-year-old female who presented to the emergency room on 06/12/2017 with a chief complaint of left lower quadrant abdominal pain. The patient has a history of exploratory laparotomy with lysis of adhesions and small bowel resection in 2016. She also underwent an expiratory laparotomy, lysis of adhesions, small bowel resection, appendectomy, and sigmoid colectomy with end colostomy in March 2017. She has a history of diastolic congestive heart failure, gastroesophageal reflux disease, diabetes mellitus, dementia, coronary artery disease with previous myocardial infection, hyperlipidemia, and obesity. She has a history of seizures with her last seizure occurring in the and is not maintained on antiseizure medication. The patient was recently hospitalized from 06/06/2017 until 06/10/2017 with similar symptoms. At that time an x-ray was completed which was negative for acute abdomen. Stool was negative for C. diff. CT of the abdomen completed on 06/09/2017 revealed persistent small to moderate size hiatal hernia with mild wall thickening, diverticula in the right colon, no suspicious moles or large bowel dilation, and probably rectal pouch which contained a few diverticula in the pelvis, and no evidence of bowel obstruction. The patient also had a mild pancreatitis at that time which was resolved at time of discharge. The patient was thought to have gastroenteritis and was discharged home. In the emergency room, a computed tomography scan of the abdomen and pelvis was completed which revealed diverticulosis with findings suggestive of enteritis rather than ischemia. Laboratory studies revealed WBC 11.1, hemoglobin 13.7, platelet count 215. Sodium 144, potassium 4.2, BUN 15, creatinine 1.08, glucose 55, lactic acid 1.1, AST 21, ALC 22, troponin negative 1, amylase 88, and lipase 286. Stool for C. diff was negative. She was started on D5.45 at 75 mL an hour secondary to hypoglycemia with improvement in her blood glucose. She was admitted for observation under the care of Dr. Golden. Consultations were placed to Dr. Leal. Review of Systems GENERAL: Patient denies fever. Denies chills. EYES: Denies blurred vision. Denies vision changes. Denies eye pain. EARS, NOSE, MOUTH, & THROAT: Denies headache. Denies sore throat. Denies ear pain. RESPIRATORY: Denies cough. Denies shortness of breath. Denies sputum production. Denies hemoptysis. CARDIOVASCULAR: Denies chest pain or pressure. Denies palpitations. Denies arrhythmias. GASTROINTESTINAL: Positive for left lower quadrant abdominal pain. Denies nausea. Denies vomiting. Denies heartburn. Denies blood in the stool. GENITOURINARY: Denies urinary frequency. Denies burning. Denies dysuria. Denies cloudy urine. Denies blood in the urine. MUSCULOSKELETAL: Denies myalgias. Denies joint swelling. Denies decreased range of motion beyond patients baseline. INTEGUMENTARY: Denies pruitis. Denies rash. PSYCHIATRIC: Denies suicidal or homicial ideations. ENDOCRINE: Denies weight change. Denies polydipsia. Denies polyuria. HEMATOLOGIC: Denies bleeding disorders. Past Medical History Past Medical History: Asthma, Coronary Artery Disease (CAD), Heart Failure, Dementia, Diabetes Mellitus, Deep Vein Thrombosis (DVT), GERD/Reflux, Hyperlipidemia, Myocardial Infarction ([place]), Osteoarthritis (OA), Pneumonia, Renal Disease, Seizure Disorder, Sleep Apnea/CPAP/BIPAP, Vascular Disorder Additional Past Medical History / Comment(s): Bronchial asthma, dementia, diabetes mellitus, hyperlipidemia, coronary artery disease with previous myocardial infarction, seizure disorder many years back and the patient has not been on seizure medication. Her last seizure was back in the 70s., sleep apnea , obstructive sleep apnea with suboptimal compliance to CPAP therapy, hx falls( past head injury /broken nose d/t fall), TMJ, chronic anemia, peripheral vascular disease, diverticulosis, cardiac murmur, remote history of DVT, diabetes mellitus, bipolar disorder, small bowel resection with inflammatory/ malignant small bowel lesion/mass. pancreatits. early onset parkinsons Last Myocardial Infarction Date:: 1991 History of Any Multi-Drug Resistant Organisms: None Reported Past Surgical History: Adenoidectomy, Appendectomy, Bowel Resection, Cholecystectomy, Hernia Repair, Hysterectomy, Joint Replacement, Orthopedic Surgery, Tonsillectomy Additional Past Surgical History / Comment(s): NOVEMBER 2016 had exploratory laparotomy and a small bowel resection then in laparotomy,lysis of adhgesions,small bowel resection ,sig colectomy w/ colostomy and appy(,PER PT'S SISTER APPROX 10-12 YEARS AGO HAD partial colon resection with colostomy then reversal), SILVERIO KNEE ARTHROSCOPY, Right KNEE REPLACEMENT, EGDs and colonoscopies , lipomas off back, cyst off spine, eye duct surgery, cataracts Past Anesthesia/Blood Transfusion Reactions: Previous Problems w/ Anesthesia, Motion Sickness Additional Past Anesthesia/Blood Transfusion Reaction / Comment(s): DIFFICULTY WAKING UP. CLAUSTERPHOBIC Smoking Status: Former smoker - Past Family History Father Family Medical History: Cancer Additional Family Medical History / Comment(s): Father had lung cancer. Mother Family Medical History: Congestive Heart Failure (CHF), Dementia, Myocardial Infarction ([place]) Medications and Allergies Home Medications Medication Instructions Recorded Confirmed Type Albuterol Sulfate [Proair Hfa] 2 puff INHALATION RT-QID PRN 06/24/14 06/12/17 History Donepezil [Aricept] 10 mg PO DAILY 02/07/15 06/12/17 History Loratadine 10 mg PO DAILY 06/28/16 06/12/17 History Montelukast Sodium [Singulair] 10 mg PO DAILY 06/28/16 06/12/17 History Omeprazole [PriLOSEC] 20 mg PO HS 06/28/16 06/12/17 History risperiDONE [RisperDAL] 1 mg PO HS 08/16/16 06/12/17 History glipiZIDE [Glucotrol] 5 mg PO DAILY 09/03/16 06/12/17 History Sertraline [Zoloft] 50 mg PO DAILY 11/22/16 06/12/17 History Famotidine [Pepcid] 20 mg PO DAILY 06/03/17 06/12/17 History traMADol HCL [Ultram] 50 mg PO BID PRN 06/06/17 06/12/17 History Memantine HCl [Namenda Xr] 28 mg PO DAILY 06/12/17 06/12/17 History Mirtazapine [Remeron] 7.5 mg PO HS 06/12/17 06/12/17 History Allergies Allergy/AdvReac Type Severity Reaction Status Date / Time codeine Allergy Rash/Hives Verified 06/12/17 11:57 lorazepam [From Ativan] Allergy Rash/Hives Verified 06/12/17 11:57 oxaprozin [From Daypro] Allergy Rash/Hives Verified 06/12/17 11:57 Sulfa (Sulfonamide Allergy Rash/Hives Verified 06/12/17 11:57 Antibiotics) baclofen AdvReac Unknown Psychotic Verified 06/12/17 11:57 Episode cyclobenzaprine HCl AdvReac Confusion Verified 06/12/17 11:57 [From Flexeril] Physical Exam Vitals: Vital Signs Temp Pulse Pulse Resp BP BP Pulse Ox 06/13/17 08:00 61 18 06/13/17 07:00 97.4 F L 61 18 92/55 95 06/12/17 21:10 98.6 F 62 16 136/63 95 06/12/17 17:22 98.1 F 65 16 129/60 97 06/12/17 17:13 97.0 F L 69 18 152/82 96 06/12/17 16:47 97.7 F 89 16 135/60 95 06/12/17 14:58 72 16 132/68 95 Intake and Output 06/12/17 06/13/17 06/13/17 22:59 06:59 14:59 Intake Total 900 Balance 900 Intake: Intake, IV Titration 600 Amount D5-0.45% NaCl with KCl 600 20Meq/l 1,000 ml @ 75 mls /hr IV .[id number] [facility] Rx#: [id number] Oral 300 Other: Voiding Method Toilet Toilet Diaper Diaper Incontinent # Voids 1 2 Weight 56.699 kg GENERAL: This is a 66-year-old female in no apparent distress at the time of examination. HEENT: Head is atraumatic, normocephalic. Pupils are equal, round, and reactive to light. Sclerae anicteric. Conjunctivae are clear. Mucus membranes of the mouth are moist. Neck is supple. RESPIRATORY: Clear to ausculation. No wheezes, rales, or rhonchi. No use of accessory muscles. Patient maintaining oxygen saturation greater than 92% on room air. No chest wall tenderness is noted on palpation or with deep breathing. CARDIOVASCULAR: Regular rate and rhythm. S1 and S2 noted. No systolic or diastolic murmur auscultated. No JVD noted. No S3 or S4 noted. GASTROINTESTINAL: Ostomy noted to left lower quadrant with moderate stool output. Abdomen soft and round. No distention noted. Pain and tenderness noted upon palpation. Bowel sounds auscultated 4 quadrants. INTEGUMENTARY: No cyanosis. No jaundice. No rashes noted. No cellulitis noted. EXTREMITIES: 2+ peripheral pulses. No evidence of peripheral edema. No calf tenderness noted. NEUROLOGIC: Cranial nerves II-XII intact. PSYCHIATRIC: Patient is pleasantly confused, which is her baseline. Results CBC & Chem 7: 06/13/17 07:59 06/13/17 07:59 Labs: Abnormal Lab Results - Last 24 Hours (Table) 06/12/17 06/13/17 06/13/17 Range/Units 22:15 07:22 07:59 Chloride 113 H (98-107) mmol/L Carbon Dioxide 17 L (22-30) mmol/L Glucose 124 H (74-99) mg/dL POC Glucose (mg/dL) 140 H 123 H (75-99) mg/dL 06/13/17 Range/Units 11:26 Chloride (98-107) mmol/L Carbon Dioxide (22-30) mmol/L Glucose (74-99) mg/dL POC Glucose (mg/dL) 123 H (75-99) mg/dL Thrombosis Risk Factor Assmnt - Choose All That Apply Any of the Below Risk Factors Present?: Yes Each Factor Represents 1 point: Obesity (BMI >25) Other Risk Factors: Yes Each Risk Factor Represents 2 Points: Age 61-74 years Each Risk Factor Represents 3 Points: History of DVT/PE Other congenital or acquired thrombophilia - If yes, enter type in comment: No Thrombosis Risk Factor Assessment Total Risk Factor Score: 6 Thrombosis Risk Factor Assessment Level: High Risk Assessment and Plan Plan: ASSESSMENT: Acute abdominal pain, stool for c-diff negative, CT abdomen reveals diverticulosis and enteritis, recent diagnosis of gastroenteritis Recent hospitalization secondary to abdominal pain and increased stool output and diagnosed with gastroenteritis Hypoglycemia, secondary to decreased oral intake History of exploratory laparotomy, lysis of adhesions, and small bowel resection in November 2016 History of exploratory laparotomy, lysis of adhesions, small bowel resection, appendectomy, and sigmoid colectomy with end colostomy in March 2017 Chronic diastolic congestive heart failure, most recent echocardiogram reveals EF greater than 55% History of gastroesophageal reflux disease History of diabetes mellitus, type II, recent hemoglobin A1c 4.7%, History of dementia History of coronary artery disease with previous myocardial infarction Hyperlipidemia History of seizure disorder, not maintained on antiseizure medications with last seizure occurring in the 1970s PLAN: -Dr. Leal on consult. Await further recommendations and input -Await results of stool culture -Continue D5.45 at 75 mL an hour -Capillary blood glucose Accu-Cheks before meals and at bedtime -Hold glipizide secondary to hypoglycemia -Clear liquid diet -Home meds as appropriate -Monitor labs -Activity as tolerated -GI prophylaxis: Pepcid 20 mg by mouth daily -DVT prophylaxis: Heparin 5000 units subcu every 8 hours -Monitor vital signs and address as appropriate -Discharge planning: Patient lives with her sisters who help care for her -Further recommendations pending patient's course Nurse practitioner note has been reviewed by physician. Signing provider agrees with the documented findings, assessment, and plan of care.
--- NOTE | 2017-06-13 15:14 | P.GSCN ---
<Danuta Ocampo - Last Filed: 06/13/17 15:00> History of Present Illness Consult date: 06/13/17 Reason for Consult: Abdominal pain History of present illness: 66-year-old female being seen at the request of the attending for surgical eval who presented to the emergency room with a report from a family member patient developing abdominal pain. Patient was recently hospitalized and discharged on June 10. At that admission the patient was worked up for abdominal pain nausea vomiting. KUB which was negative for an acute abdomen. At that admission the stool was negative for C. diff. Does have a history of a moderate size hiatal hernia. CAT scan of the abdomen pelvis obtained on June 09 showed diverticulitis the right colon No suspicious bowel obstruction. Patient does have a history of dementia. Currently is being evaluated is pleasant and cooperative trying to climb out of bed oriented to self only abdomen is soft ostomy left lower quadrant large amount of liquid brown stool in ostomy bag does have a history of a recent March 13 17 bowel surgery underwent exploratory laparotomy, lysis of adhesions, small bowel resection, sigmoid colectomy with an ostomy done for perforated diverticulitis with abscess Review of Systems Poor recall not able to obtain Past Medical History Past Medical History: Asthma, Coronary Artery Disease (CAD), Heart Failure, Dementia, Diabetes Mellitus, Deep Vein Thrombosis (DVT), GERD/Reflux, Hyperlipidemia, Myocardial Infarction ([place]), Osteoarthritis (OA), Pneumonia, Renal Disease, Seizure Disorder, Sleep Apnea/CPAP/BIPAP, Vascular Disorder Additional Past Medical History / Comment(s): Bronchial asthma, dementia, diabetes mellitus, hyperlipidemia, coronary artery disease with previous myocardial infarction, seizure disorder many years back and the patient has not been on seizure medication. Her last seizure was back in the 70s., sleep apnea , obstructive sleep apnea with suboptimal compliance to CPAP therapy, hx falls( past head injury /broken nose d/t fall), TMJ, chronic anemia, peripheral vascular disease, diverticulosis, cardiac murmur, remote history of DVT, diabetes mellitus, bipolar disorder, small bowel resection with inflammatory/ malignant small bowel lesion/mass. pancreatits. early onset parkinsons Last Myocardial Infarction Date:: 1991 History of Any Multi-Drug Resistant Organisms: None Reported Past Surgical History: Adenoidectomy, Appendectomy, Bowel Resection, Cholecystectomy, Hernia Repair, Hysterectomy, Joint Replacement, Orthopedic Surgery, Tonsillectomy Additional Past Surgical History / Comment(s): NOVEMBER 2016 had exploratory laparotomy and a small bowel resection then in laparotomy,lysis of adhgesions,small bowel resection ,sig colectomy w/ colostomy and appy(,PER PT'S SISTER APPROX 10-12 YEARS AGO HAD partial colon resection with colostomy then reversal), SILVERIO KNEE ARTHROSCOPY, Right KNEE REPLACEMENT, EGDs and colonoscopies , lipomas off back, cyst off spine, eye duct surgery, cataracts Past Anesthesia/Blood Transfusion Reactions: Previous Problems w/ Anesthesia, Motion Sickness Additional Past Anesthesia/Blood Transfusion Reaction / Comm: DIFFICULTY WAKING UP. CLAUSTERPHOBIC Smoking Status: Former smoker - Past Family History Father Family Medical History: Cancer Additional Family Medical History / Comment(s): Father had lung cancer. Mother Family Medical History: Congestive Heart Failure (CHF), Dementia, Myocardial Infarction ([place]) Medications and Allergies Home Medications Medication Instructions Recorded Confirmed Type Albuterol Sulfate [Proair Hfa] 2 puff INHALATION RT-QID PRN 06/24/14 06/12/17 History Donepezil [Aricept] 10 mg PO DAILY 02/07/15 06/12/17 History Loratadine 10 mg PO DAILY 06/28/16 06/12/17 History Montelukast Sodium [Singulair] 10 mg PO DAILY 06/28/16 06/12/17 History Omeprazole [PriLOSEC] 20 mg PO HS 06/28/16 06/12/17 History risperiDONE [RisperDAL] 1 mg PO HS 08/16/16 06/12/17 History glipiZIDE [Glucotrol] 5 mg PO DAILY 09/03/16 06/12/17 History Sertraline [Zoloft] 50 mg PO DAILY 11/22/16 06/12/17 History Famotidine [Pepcid] 20 mg PO DAILY 06/03/17 06/12/17 History traMADol HCL [Ultram] 50 mg PO BID PRN 06/06/17 06/12/17 History Memantine HCl [Namenda Xr] 28 mg PO DAILY 06/12/17 06/12/17 History Mirtazapine [Remeron] 7.5 mg PO HS 06/12/17 06/12/17 History Allergies Allergy/AdvReac Type Severity Reaction Status Date / Time codeine Allergy Rash/Hives Verified 06/12/17 11:57 lorazepam [From Ativan] Allergy Rash/Hives Verified 06/12/17 11:57 oxaprozin [From Daypro] Allergy Rash/Hives Verified 06/12/17 11:57 Sulfa (Sulfonamide Allergy Rash/Hives Verified 06/12/17 11:57 Antibiotics) baclofen AdvReac Unknown Psychotic Verified 06/12/17 11:57 Episode cyclobenzaprine HCl AdvReac Confusion Verified 06/12/17 11:57 [From Flexeril] Surgical - Exam Vital Signs Temp Pulse Resp BP Pulse Ox 97.7 F 88 16 129/64 98 06/12/17 11:13 06/12/17 11:13 06/12/17 11:13 06/12/17 11:13 06/12/17 11:13 GENERAL APPEARANCE: The patient is alert, oriented, in no acute distress. VITAL SIGNS: Reviewed HEENT: Head is normocephalic and atraumatic. Pupils are equal and reactive. The nares are patent. Oropharynx is clear without lesions. NECK: Supple without lymphadenopathy. Traches midline. HEART: S1, S2. Regular rate and rhythm. Denying chest pain when questioning LUNGS: No crackles or wheezes are heard. Adequate air movement bilaterally ABDOMEN: Soft, with an ostomy in the left lower quadrant with a large amount brown liquid stool odorous nontender, nondistended with good bowel sounds. No peritoneal signs. No palpable organomegaly or masses. Well-healed surgical midline abdominal scar incontinent urine EXTREMITIES: Normal skin color and turgor. Trace pedal edema bilaterally. Radial pedal pulses are 2/4 bilaterally. Results - Labs 06/13/17 07:59 06/13/17 07:59 Abnormal Lab Results - Last 24 Hours (Table) 06/12/17 06/13/17 06/13/17 Range/Units 22:15 07:22 07:59 Chloride 113 H (98-107) mmol/L Carbon Dioxide 17 L (22-30) mmol/L Glucose 124 H (74-99) mg/dL POC Glucose (mg/dL) 140 H 123 H (75-99) mg/dL 06/13/17 Range/Units 11:26 Chloride (98-107) mmol/L Carbon Dioxide (22-30) mmol/L Glucose (74-99) mg/dL POC Glucose (mg/dL) 123 H (75-99) mg/dL Diabetes panel 06/13/17 Range/Units 07:59 Sodium 140 (137-145) mmol/L Potassium 3.9 (3.5-5.1) mmol/L Chloride 113 H (98-107) mmol/L Carbon Dioxide 17 L (22-30) mmol/L BUN 9 (7-17) mg/dL Creatinine 0.79 (0.52-1.04) mg/dL Glucose 124 H (74-99) mg/dL Calcium 8.9 (8.4-10.2) mg/dL Calcium panel 06/13/17 Range/Units 07:59 Calcium 8.9 (8.4-10.2) mg/dL Pituitary panel 06/13/17 Range/Units 07:59 Sodium 140 (137-145) mmol/L Potassium 3.9 (3.5-5.1) mmol/L Chloride 113 H (98-107) mmol/L Carbon Dioxide 17 L (22-30) mmol/L BUN 9 (7-17) mg/dL Creatinine 0.79 (0.52-1.04) mg/dL Glucose 124 H (74-99) mg/dL Calcium 8.9 (8.4-10.2) mg/dL Adrenal panel 06/13/17 Range/Units 07:59 Sodium 140 (137-145) mmol/L Potassium 3.9 (3.5-5.1) mmol/L Chloride 113 H (98-107) mmol/L Carbon Dioxide 17 L (22-30) mmol/L BUN 9 (7-17) mg/dL Creatinine 0.79 (0.52-1.04) mg/dL Glucose 124 H (74-99) mg/dL Calcium 8.9 (8.4-10.2) mg/dL Assessment and Plan Assessment: Impression Present on admission abdominal pain unclear etiology CAT scan abdomen and pelvis diverticulosis with enteritis recent small bowel resection, lysis of adhesion, sigmoid colectomy with end ostomy March 2017 for perforated diverticulitis with an abscess Multiple prior abdominal surgeries for small bowel resections with lysis of adhesions Dementia Chronic debility Colonoscopy done 11/14/2016 showed diverticulosis Plan IV fluid for hydration DVT and GI prophylaxis Pain control surgical service Dr. Lopez further surgical recommendations pending No evidence of an acute surgical abdomen at this time Continue to follow surgical course with you addressing issues as they arise Follow-up on pending stool cultures Consultation note dictated for Dr. lopez The above impression and plan of care have been discussed and directed by signing physician. Danuta Ocampo nurse practitioner acting as scribe for signing physician. <Jose Juan Lopez - Last Filed: 06/13/17 17:25> Surgical - Exam Vital Signs Temp Pulse Resp BP Pulse Ox 97.7 F 88 16 129/64 98 06/12/17 11:13 06/12/17 11:13 06/12/17 11:13 06/12/17 11:13 06/12/17 11:13 Results - Labs 06/13/17 07:59 06/13/17 07:59 Abnormal Lab Results - Last 24 Hours (Table) 06/12/17 06/13/17 06/13/17 Range/Units 22:15 07:22 07:59 Chloride 113 H (98-107) mmol/L Carbon Dioxide 17 L (22-30) mmol/L Glucose 124 H (74-99) mg/dL POC Glucose (mg/dL) 140 H 123 H (75-99) mg/dL 06/13/17 06/13/17 Range/Units 11:26 16:43 Chloride (98-107) mmol/L Carbon Dioxide (22-30) mmol/L Glucose (74-99) mg/dL POC Glucose (mg/dL) 123 H 136 H (75-99) mg/dL Microbiology - Last 24 Hours (Table) 06/13/17 12:00 Stool Culture - Preliminary Stool Diabetes panel 06/13/17 Range/Units 07:59 Sodium 140 (137-145) mmol/L Potassium 3.9 (3.5-5.1) mmol/L Chloride 113 H (98-107) mmol/L Carbon Dioxide 17 L (22-30) mmol/L BUN 9 (7-17) mg/dL Creatinine 0.79 (0.52-1.04) mg/dL Glucose 124 H (74-99) mg/dL Calcium 8.9 (8.4-10.2) mg/dL Calcium panel 06/13/17 Range/Units 07:59 Calcium 8.9 (8.4-10.2) mg/dL Pituitary panel 06/13/17 Range/Units 07:59 Sodium 140 (137-145) mmol/L Potassium 3.9 (3.5-5.1) mmol/L Chloride 113 H (98-107) mmol/L Carbon Dioxide 17 L (22-30) mmol/L BUN 9 (7-17) mg/dL Creatinine 0.79 (0.52-1.04) mg/dL Glucose 124 H (74-99) mg/dL Calcium 8.9 (8.4-10.2) mg/dL Adrenal panel 06/13/17 Range/Units 07:59 Sodium 140 (137-145) mmol/L Potassium 3.9 (3.5-5.1) mmol/L Chloride 113 H (98-107) mmol/L Carbon Dioxide 17 L (22-30) mmol/L BUN 9 (7-17) mg/dL Creatinine 0.79 (0.52-1.04) mg/dL Glucose 124 H (74-99) mg/dL Calcium 8.9 (8.4-10.2) mg/dL Assessment and Plan Plan: Patient still has complaints of abdominal pain. Her abdomen soft. There is some mild tenderness. She'll remain on sips of clears.
[2017-06-13 16:47] LABS: Glucose,Whole Blood 136 mg/dL (75-99)
[2017-06-13 17:36] LABS: Hemoglobin A1C 4.7 % (4.0-6.0)
[2017-06-13] MEDS: risperiDONE 1 MG TAB PO SCH (20:26)
[2017-06-13] MEDS: MIRTAZAPINE 15 MG TAB PO SCH (20:26)
[2017-06-13 20:44] LABS: Glucose,Whole Blood 162 mg/dL (75-99)
[2017-06-14] MEDS: HEPARIN SODIUM,PORCINE 5,000 UNIT/ML 1 ML VIAL SQ SCH ×3 (00:52→16:03)
[2017-06-14] MEDS: D5-0.45% NACL WITH KCL 20MEQ/L 1,000 ML IV SCH ×5 (05:29→19:54)
[2017-06-14 07:36] LABS: Basophils # (A) 0.1 k/uL (0-0.2); Basophils % (A) 1 %; Eosinophils # (A) 0.2 k/uL (0-0.7); Eosinophils % (A) 3 %; HCT 41.1 % (34.0-46.0); Lymphocytes # (A) 0.9 k/uL (1.0-4.8); Lymphocytes % (A) 12 %; MCHC 31.6 g/dL (31.0-37.0); MCV 88.7 fL (80.0-100.0); Mean Platelet Volume 7.3; Monocytes # (A) 0.3 k/uL (0-1.0); Monocytes % (A) 5 %; Neutrophils # (A) 5.6 k/uL (1.3-7.7); Neutrophils % (A) 79 %; Platelet Count 166 k/uL (150-450); RBC 4.63 m/uL (3.80-5.40); WBC 7.1 k/uL (3.8-10.6)
[2017-06-14 07:39] LABS: Glucose,Whole Blood 120 mg/dL (75-99)
[2017-06-14 08:01] LABS: Anion Gap 9 mmol/L; Blood Urea Nitrogen 8 mg/dL (7-17); Calcium 9.4 mg/dL (8.4-10.2); Carbon Dioxide 17 mmol/L (22-30); Chloride 112 mmol/L (98-107); Glucose 115 mg/dL (74-99); Sodium 138 mmol/L (137-145)
[2017-06-14] MEDS: FAMOTIDINE 20 MG TAB PO SCH (08:08)
[2017-06-14] MEDS: MEMANTINE 10 MG TAB PO SCH ×2 (08:08→20:31)
[2017-06-14] MEDS: MONTELUKAST 10 MG TAB PO SCH (08:08)
[2017-06-14] MEDS: DONEPEZIL 10 MG TAB PO SCH (08:08)
[2017-06-14] MEDS: LORATADINE 10 MG TAB PO SCH (08:08)
[2017-06-14] MEDS: SERTRALINE 50 MG TAB PO SCH (08:09)
[2017-06-14 08:11] LABS: Potassium 4.3 mmol/L (3.5-5.1)
[2017-06-14 11:58] LABS: Glucose,Whole Blood 122 mg/dL (75-99)
--- NOTE | 2017-06-14 12:37 | P.PN ---
<Danuta Ocampo - Last Filed: 06/14/17 12:42> Subjective Progress Note Date: 06/14/17 66-year-old female seen and examined at bedside did note the patient seems to have increased pain left lower quadrant this morning facial grimacing with palpitation. Bowel tones present. Ostomy functioning moderate amount of liquid brown stool in ostomy bag. No nausea no vomiting. Patient is cooperative oriented to self with prompting can identify place the white count 7.1 afebrile Objective - Vital Signs Vital signs: Vital Signs Temp 97.8 F 06/14/17 07:00 Pulse 66 06/14/17 07:00 Resp 16 06/14/17 07:00 BP 140/67 06/14/17 07:00 Pulse Ox 95 06/14/17 07:00 Intake & Output 06/13/17 06/14/17 06/14/17 18:59 06:59 18:59 Intake Total 1620 Balance 1620 Weight 56.699 kg Intake: Intake, IV Titration 900 Amount D5-0.45% NaCl with KCl 900 20Meq/l 1,000 ml @ 75 mls /hr IV .[id number] [facility] Rx#: [id number] Oral 720 Other: Voiding Method Toilet Toilet Toilet Diaper Diaper Diaper Incontinent Incontinent Incontinent # Voids 3 1 2 - Exam Physical exam Pleasant 66-year-old female resting in bed cooperative oriented to self and place Lungs anterior and posterior adequate air movement bilaterally on room air Heart S1-S2 audible and regular Abdomen left lower quadrant ostomy pink tinged stool moderate amount noted in ostomy bag. Facial grimacing with palpitation to right lower quadrant incontinently urine Extremities trace pedal edema - Labs CBC & Chem 7: 06/14/17 07:14 06/14/17 07:14 Labs: Abnormal Lab Results - Last 24 Hours (Table) 06/13/17 06/13/17 06/14/17 Range/Units 16:43 20:40 07:14 Lymphocytes # 0.9 L (1.0-4.8) k/uL Chloride (98-107) mmol/L Carbon Dioxide (22-30) mmol/L Glucose (74-99) mg/dL POC Glucose (mg/dL) 136 H 162 H (75-99) mg/dL 06/14/17 06/14/17 Range/Units 07:14 07:24 Lymphocytes # (1.0-4.8) k/uL Chloride 112 H (98-107) mmol/L Carbon Dioxide 17 L (22-30) mmol/L Glucose 115 H (74-99) mg/dL POC Glucose (mg/dL) 120 H (75-99) mg/dL Microbiology - Last 24 Hours (Table) 06/13/17 12:00 Stool Culture - Preliminary Stool Assessment and Plan Assessment: Impression Present on admission abdominal pain unclear etiology CAT scan abdomen and pelvis diverticulosis with enteritis recent small bowel resection, lysis of adhesion, sigmoid colectomy with end ostomy March 2017 for perforated diverticulitis with an abscess Multiple prior abdominal surgeries for small bowel resections with lysis of adhesions Dementia Chronic debility Colonoscopy done 11/14/2016 showed diverticulosis Plan IV fluid for hydration DVT and GI prophylaxis Pain control surgical service Dr. Lopez further surgical recommendations pending No evidence of an acute surgical abdomen at this time Continue to follow surgical course with you addressing issues as they arise Follow-up on pending stool cultures Keep patient nothing by mouth do not initiate diet for now progress note dictated for Dr. lopez The above impression and plan of care have been discussed and directed by signing physician. Danuta Ocampo nurse practitioner acting as scribe for signing physician. <Jose Juan Lopez - Last Filed: 06/14/17 14:37> Objective - Vital Signs Vital signs: Vital Signs Temp 97.8 F 06/14/17 07:00 Pulse 66 06/14/17 07:00 Resp 16 06/14/17 07:00 BP 140/67 06/14/17 07:00 Pulse Ox 95 06/14/17 07:00 Intake & Output 06/13/17 06/14/17 06/14/17 18:59 06:59 18:59 Intake Total 1620 Balance 1620 Weight 56.699 kg Intake: Intake, IV Titration 900 Amount D5-0.45% NaCl with KCl 900 20Meq/l 1,000 ml @ 75 mls /hr IV .[id number] [facility] Rx#: [id number] Oral 720 Other: Voiding Method Toilet Toilet Toilet Diaper Diaper Diaper Incontinent Incontinent Incontinent # Voids 3 1 2 - Labs CBC & Chem 7: 06/14/17 07:14 06/14/17 07:14 Labs: Abnormal Lab Results - Last 24 Hours (Table) 06/13/17 06/13/17 06/14/17 Range/Units 16:43 20:40 07:14 Lymphocytes # 0.9 L (1.0-4.8) k/uL Chloride (98-107) mmol/L Carbon Dioxide (22-30) mmol/L Glucose (74-99) mg/dL POC Glucose (mg/dL) 136 H 162 H (75-99) mg/dL 06/14/17 06/14/17 06/14/17 Range/Units 07:14 07:24 11:49 Lymphocytes # (1.0-4.8) k/uL Chloride 112 H (98-107) mmol/L Carbon Dioxide 17 L (22-30) mmol/L Glucose 115 H (74-99) mg/dL POC Glucose (mg/dL) 120 H 122 H (75-99) mg/dL Microbiology - Last 24 Hours (Table) 06/13/17 12:00 Stool Culture - Preliminary Stool Assessment and Plan Plan: History of enteritis. Patient's pain has improved. She still has some mild diffuse abdominal pain. We will hold off on a diet until her pain is improved.
--- NOTE | 2017-06-14 15:42 | P.PN ---
Subjective Progress Note Date: 06/14/17 66-year-old female who presented to the emergency room on 06/12/2017 with a chief complaint of left lower quadrant abdominal pain. The patient has a history of exploratory laparotomy with lysis of adhesions and small bowel resection in 2016. She also underwent an expiratory laparotomy, lysis of adhesions, small bowel resection, appendectomy, and sigmoid colectomy with end colostomy in March 2017. She has a history of diastolic congestive heart failure, gastroesophageal reflux disease, diabetes mellitus, dementia, coronary artery disease with previous myocardial infection, hyperlipidemia, and obesity. She has a history of seizures with her last seizure occurring in the and is not maintained on antiseizure medication. The patient was recently hospitalized from 06/06/2017 until 06/10/2017 with similar symptoms. At that time an x-ray was completed which was negative for acute abdomen. Stool was negative for C. diff. CT of the abdomen completed on 06/09/2017 revealed persistent small to moderate size hiatal hernia with mild wall thickening, diverticula in the right colon, no suspicious moles or large bowel dilation, and probably rectal pouch which contained a few diverticula in the pelvis, and no evidence of bowel obstruction. The patient also had a mild pancreatitis at that time which was resolved at time of discharge. The patient was thought to have gastroenteritis and was discharged home. In the emergency room, a computed tomography scan of the abdomen and pelvis was completed which revealed diverticulosis with findings suggestive of enteritis rather than ischemia. Laboratory studies revealed WBC 11.1, hemoglobin 13.7, platelet count 215. Sodium 144, potassium 4.2, BUN 15, creatinine 1.08, glucose 55, lactic acid 1.1, AST 21, ALC 22, troponin negative 1, amylase 88, and lipase 286. Stool for C. diff was negative. She was started on D5.45 at 75 mL an hour secondary to hypoglycemia with improvement in her blood glucose. She was admitted for observation under the care of Dr. Golden. Consultations were placed to Dr. Leal. 06/14/2017 Patient seen and examined at the bedside. She is awake and alert. She remains pleasantly confused which is her baseline. She complains of generalized abdominal pain. Ostomy without stool output, but per surgery it was just recently changed and stool was pink tinged. Patient was able to tolerate a small amount of clear liquids yesterday afternoon. She denies nausea. No episodes of emesis noted. She is afebrile. White count is within normal limits. Stool cultures currently pending. Blood pressure is stable with a last reading of 140/67. She remains on D5.45 at 75 mL an hour secondary to hypoglycemia and decreased oral intake. Objective - Vital Signs Vital signs: Vital Signs Temp 97.8 F 06/14/17 07:00 Pulse 66 06/14/17 07:00 Resp 16 06/14/17 07:00 BP 140/67 06/14/17 07:00 Pulse Ox 95 06/14/17 07:00 Intake & Output 06/13/17 06/14/17 06/14/17 18:59 06:59 18:59 Intake Total 1620 Balance 1620 Weight 56.699 kg Intake: Intake, IV Titration 900 Amount D5-0.45% NaCl with KCl 900 20Meq/l 1,000 ml @ 75 mls /hr IV .[id number] [facility] Rx#: [id number] Oral 720 Other: Voiding Method Toilet Toilet Toilet Diaper Diaper Diaper Incontinent Incontinent Incontinent # Voids 3 1 - Exam GENERAL: This is a 66-year-old female in no apparent distress at the time of examination. HEENT: Head is atraumatic, normocephalic. Pupils are equal, round, and reactive to light. Sclerae anicteric. Conjunctivae are clear. Mucus membranes of the mouth are moist. Neck is supple. RESPIRATORY: Clear to ausculation. No wheezes, rales, or rhonchi. No use of accessory muscles. Patient maintaining oxygen saturation greater than 92% on room air. No chest wall tenderness is noted on palpation or with deep breathing. CARDIOVASCULAR: Regular rate and rhythm. S1 and S2 noted. No systolic or diastolic murmur auscultated. No JVD noted. No S3 or S4 noted. GASTROINTESTINAL: Ostomy noted to left lower quadrant. No stool output noted but appliance recently changed. Abdomen soft and round. No distention noted. Pain and tenderness noted upon palpation x4 quadrants. Bowel sounds auscultated 4 quadrants. INTEGUMENTARY: No cyanosis. No jaundice. No rashes noted. No cellulitis noted. EXTREMITIES: 2+ peripheral pulses. No evidence of peripheral edema. No calf tenderness noted. NEUROLOGIC: Cranial nerves II-XII intact. PSYCHIATRIC: Patient is pleasantly confused, which is her baseline. - Labs CBC & Chem 7: 06/14/17 07:14 06/14/17 07:14 Labs: Abnormal Lab Results - Last 24 Hours (Table) 06/13/17 06/13/17 06/13/17 Range/Units 11:26 16:43 20:40 Lymphocytes # (1.0-4.8) k/uL Chloride (98-107) mmol/L Carbon Dioxide (22-30) mmol/L Glucose (74-99) mg/dL POC Glucose (mg/dL) 123 H 136 H 162 H (75-99) mg/dL 06/14/17 06/14/17 06/14/17 Range/Units 07:14 07:14 07:24 Lymphocytes # 0.9 L (1.0-4.8) k/uL Chloride 112 H (98-107) mmol/L Carbon Dioxide 17 L (22-30) mmol/L Glucose 115 H (74-99) mg/dL POC Glucose (mg/dL) 120 H (75-99) mg/dL Microbiology - Last 24 Hours (Table) 06/13/17 12:00 Stool Culture - Preliminary Stool Assessment and Plan Plan: ASSESSMENT: Acute abdominal pain, stool for c-diff negative, CT abdomen reveals diverticulosis and enteritis, recent diagnosis of gastroenteritis Recent hospitalization secondary to abdominal pain and increased stool output and diagnosed with gastroenteritis Hypoglycemia, secondary to decreased oral intake, improving with D5.45 infusion History of exploratory laparotomy, lysis of adhesions, and small bowel resection in November 2016 History of exploratory laparotomy, lysis of adhesions, small bowel resection, appendectomy, and sigmoid colectomy with end colostomy in March 2017 Chronic diastolic congestive heart failure, most recent echocardiogram reveals EF greater than 55% History of gastroesophageal reflux disease History of diabetes mellitus, type II, recent hemoglobin A1c 4.7%, History of dementia History of coronary artery disease with previous myocardial infarction Hyperlipidemia History of seizure disorder, not maintained on antiseizure medications with last seizure occurring in the PLAN: -Dr. Leal on consult. Appreciate recommendations and input -Await results of stool culture -NPO at this time per surgery -Continue D5.45 at 75 mL an hour until patient is able to have PO intake -Capillary blood glucose Accu-Cheks before meals and at bedtime -Hold glipizide secondary to hypoglycemia -Home meds as appropriate -Monitor labs -Activity as tolerated -GI prophylaxis: Pepcid 20 mg by mouth daily -DVT prophylaxis: Heparin 5000 units subcu every 8 hours -Monitor vital signs and address as appropriate -Discharge planning: Patient lives with her sisters who help care for her -Further recommendations pending patient's course Nurse practitioner note has been reviewed by physician. Signing provider agrees with the documented findings, assessment, and plan of care.
[2017-06-14 17:42] LABS: Glucose,Whole Blood 109 mg/dL (75-99)
[2017-06-14 20:13] LABS: Glucose,Whole Blood 113 mg/dL (75-99)
[2017-06-14] MEDS: MIRTAZAPINE 15 MG TAB PO SCH (20:31)
[2017-06-14] MEDS: risperiDONE 1 MG TAB PO SCH (20:31)
[2017-06-15] MEDS: HEPARIN SODIUM,PORCINE 5,000 UNIT/ML 1 ML VIAL SQ SCH ×4 (00:12→22:02)
[2017-06-15] MEDS: traMADol 50 MG TAB PO PRN ×2 (05:49→19:24)
[2017-06-15] MEDS: D5-0.45% NACL WITH KCL 20MEQ/L 1,000 ML IV SCH ×2 (06:09→17:12)
[2017-06-15 07:40] LABS: Basophils # (A) 0.1 k/uL (0-0.2); Basophils % (A) 1 %; Eosinophils # (A) 0.2 k/uL (0-0.7); Eosinophils % (A) 3 %; HCT 41.6 % (34.0-46.0); HGB 13.1 gm/dL (11.4-16.0); Lymphocytes # (A) 1.1 k/uL (1.0-4.8); Lymphocytes % (A) 18 %; MCHC 31.4 g/dL (31.0-37.0); Mean Platelet Volume 7.6; Monocytes # (A) 0.3 k/uL (0-1.0); Monocytes % (A) 5 %; Neutrophils # (A) 4.3 k/uL (1.3-7.7); Neutrophils % (A) 72 %; Platelet Count 191 k/uL (150-450); RBC 4.68 m/uL (3.80-5.40); RDW 14.1 % (11.5-15.5)
[2017-06-15 07:54] LABS: Anion Gap 9 mmol/L; Blood Urea Nitrogen 6 mg/dL (7-17); Calcium 9.4 mg/dL (8.4-10.2); Carbon Dioxide 20 mmol/L (22-30); Chloride 112 mmol/L (98-107); Glucose 139 mg/dL (74-99); Sodium 141 mmol/L (137-145)
[2017-06-15 08:06] LABS: Glucose,Whole Blood 126 mg/dL (75-99)
[2017-06-15] MEDS: MONTELUKAST 10 MG TAB PO SCH (09:28)
[2017-06-15] MEDS: SERTRALINE 50 MG TAB PO SCH (09:28)
[2017-06-15] MEDS: LORATADINE 10 MG TAB PO SCH (09:28)
[2017-06-15] MEDS: DONEPEZIL 10 MG TAB PO SCH (09:28)
[2017-06-15] MEDS: MEMANTINE 10 MG TAB PO SCH ×2 (09:29→21:56)
[2017-06-15] MEDS: FAMOTIDINE 20 MG TAB PO SCH (09:37)
--- NOTE | 2017-06-15 10:41 | P.PN ---
Subjective Progress Note Date: 06/15/17 Principal diagnosis: Enteritis Patient still having some abdominal pain. Denies nausea or vomiting. Appetite diminished. Remains nothing by mouth. Also remains somewhat confused at times. Objective - Vital Signs Vital signs: Vital Signs Temp 97.4 F L 06/15/17 07:00 Pulse 61 06/15/17 07:00 Resp 18 06/15/17 07:00 BP 128/61 06/15/17 07:00 Pulse Ox 96 06/15/17 07:00 Intake & Output 06/14/17 06/15/17 06/15/17 18:59 06:59 18:59 Output Total 300 Balance -300 Output: Other 300 Other: Voiding Method Toilet Bedside Commode Diaper Incontinent # Voids 1 2 - Exam Abdomen: Soft, nondistended, mild abdominal tenderness, no rebound or guarding - Labs CBC & Chem 7: 06/15/17 07:13 06/15/17 07:13 Labs: Abnormal Lab Results - Last 24 Hours (Table) 06/14/17 06/14/17 06/14/17 Range/Units 11:49 17:40 20:11 Chloride (98-107) mmol/L Carbon Dioxide (22-30) mmol/L BUN (7-17) mg/dL Glucose (74-99) mg/dL POC Glucose (mg/dL) 122 H 109 H 113 H (75-99) mg/dL 06/15/17 06/15/17 Range/Units 07:13 07:42 Chloride 112 H (98-107) mmol/L Carbon Dioxide 20 L (22-30) mmol/L BUN 6 L (7-17) mg/dL Glucose 139 H (74-99) mg/dL POC Glucose (mg/dL) 126 H (75-99) mg/dL Microbiology - Last 24 Hours (Table) 06/13/17 12:00 Stool Culture - Preliminary Stool Assessment and Plan (1) Enteritis Narrative/Plan: Will begin clear liquids. Recheck labs tomorrow. We'll follow with you. Current Visit: Yes Status: Acute Code(s): K52.9 - NONINFECTIVE GASTROENTERITIS AND COLITIS, UNSPECIFIED SNOMED Code(s): 75023823
[2017-06-15 11:26] LABS: Glucose,Whole Blood 118 mg/dL (75-99)
[2017-06-15 17:38] LABS: Glucose,Whole Blood 104 mg/dL (75-99)
[2017-06-15 20:24] LABS: Glucose,Whole Blood 119 mg/dL (75-99)
[2017-06-15] MEDS: MIRTAZAPINE 15 MG TAB PO SCH (21:56)
[2017-06-15] MEDS: risperiDONE 1 MG TAB PO SCH (21:56)
[2017-06-16] MEDS: D5-0.45% NACL WITH KCL 20MEQ/L 1,000 ML IV SCH ×3 (00:40→11:12)
[2017-06-16 07:39] LABS: Glucose,Whole Blood 97 mg/dL (75-99)
[2017-06-16] MEDS: SERTRALINE 50 MG TAB PO SCH (07:53)
[2017-06-16] MEDS: MONTELUKAST 10 MG TAB PO SCH (07:54)
[2017-06-16] MEDS: MEMANTINE 10 MG TAB PO SCH ×2 (07:54→20:20)
[2017-06-16] MEDS: LORATADINE 10 MG TAB PO SCH (07:54)
[2017-06-16] MEDS: DONEPEZIL 10 MG TAB PO SCH (07:54)
[2017-06-16] MEDS: FAMOTIDINE 20 MG TAB PO SCH (07:54)
[2017-06-16] MEDS: HEPARIN SODIUM,PORCINE 5,000 UNIT/ML 1 ML VIAL SQ SCH ×3 (07:54→23:30)
[2017-06-16 08:24] LABS: Basophils # (A) 0.1 k/uL (0-0.2); Basophils % (A) 1 %; Eosinophils # (A) 0.3 k/uL (0-0.7); Eosinophils % (A) 5 %; HCT 42.3 % (34.0-46.0); HGB 13.8 gm/dL (11.4-16.0); Lymphocytes # (A) 1.1 k/uL (1.0-4.8); Lymphocytes % (A) 17 %; MCH 29.4 pg (25.0-35.0); MCHC 32.7 g/dL (31.0-37.0); MCV 89.8 fL (80.0-100.0); Mean Platelet Volume 7.7; Monocytes # (A) 0.4 k/uL (0-1.0); Monocytes % (A) 6 %; Neutrophils # (A) 4.8 k/uL (1.3-7.7); Neutrophils % (A) 71 %; Platelet Count 158 k/uL (150-450); RBC 4.71 m/uL (3.80-5.40); RDW 13.3 % (11.5-15.5); WBC 6.8 k/uL (3.8-10.6)
[2017-06-16 11:32] LABS: Anion Gap 11 mmol/L; Calcium 9.5 mg/dL (8.4-10.2); Carbon Dioxide 18 mmol/L (22-30); Chloride 112 mmol/L (98-107); Glucose 127 mg/dL (74-99); Sodium 141 mmol/L (137-145); Total Bilirubin 0.5 mg/dL (0.2-1.3)
[2017-06-16 11:37] LABS: Albumin 3.5 g/dL (3.5-5.0); Blood Urea Nitrogen 5 mg/dL (7-17); Potassium 4.7 mmol/L (3.5-5.1); Total Protein 6.5 g/dL (6.3-8.2)
[2017-06-16 11:38] LABS: ALT 18 U/L (9-52); AST 27 U/L (14-36); Alkaline Phosphatase 102 U/L (38-126)
--- NOTE | 2017-06-16 11:41 | P.PN ---
Subjective Progress Note Date: 06/16/17 Principal diagnosis: Enteritis Patient doing better today. Tolerating diet. Denies abdominal pain. Objective - Vital Signs Vital signs: Vital Signs Temp 97.3 F L 06/16/17 07:00 Pulse 68 06/16/17 07:00 Resp 18 06/16/17 07:00 BP 119/79 06/16/17 07:00 Pulse Ox 99 06/16/17 07:00 Intake & Output 06/15/17 06/16/17 06/16/17 18:59 06:59 18:59 Intake Total 160 Output Total 300 Balance 160 -300 Intake: Oral 160 Output: Stool 300 Other: Voiding Method Bedside Commode Bedside Commode Bedside Commode # Voids 3 1 # Bowel Movements 3 - Exam Abdomen: Soft, nontender, nondistended - Labs CBC & Chem 7: 06/16/17 07:52 06/16/17 09:43 Labs: Abnormal Lab Results - Last 24 Hours (Table) 06/15/17 06/15/17 06/16/17 Range/Units 17:32 20:23 09:43 Chloride 112 H (98-107) mmol/L Carbon Dioxide 18 L (22-30) mmol/L BUN 5 L (7-17) mg/dL Glucose 127 H (74-99) mg/dL POC Glucose (mg/dL) 104 H 119 H (75-99) mg/dL Microbiology - Last 24 Hours (Table) 06/13/17 12:00 Stool Culture - Final Stool Assessment and Plan (1) Enteritis Narrative/Plan: Will advance diet at this time. Increase activity levels. Will follow. Current Visit: Yes Status: Acute Code(s): K52.9 - NONINFECTIVE GASTROENTERITIS AND COLITIS, UNSPECIFIED SNOMED Code(s): 00190150
[2017-06-16 12:03] LABS: Glucose,Whole Blood 112 mg/dL (75-99)
[2017-06-16 17:37] LABS: Glucose,Whole Blood 112 mg/dL (75-99)
[2017-06-16] MEDS: traMADol 50 MG TAB PO PRN (18:53)
[2017-06-16] MEDS: risperiDONE 1 MG TAB PO SCH (20:20)
[2017-06-16] MEDS: MIRTAZAPINE 15 MG TAB PO SCH (20:20)
[2017-06-16 20:21] LABS: Glucose,Whole Blood 133 mg/dL (75-99)
--- NOTE | 2017-06-16 21:52 | P.PN ---
Subjective Progress Note Date: 06/15/17 Principal diagnosis: Enteritis 66-year-old female who presented to the emergency room on 06/12/2017 with a chief complaint of left lower quadrant abdominal pain. The patient has a history of exploratory laparotomy with lysis of adhesions and small bowel resection in 2016. She also underwent an expiratory laparotomy, lysis of adhesions, small bowel resection, appendectomy, and sigmoid colectomy with end colostomy in March 2017. She has a history of diastolic congestive heart failure, gastroesophageal reflux disease, diabetes mellitus, dementia, coronary artery disease with previous myocardial infection, hyperlipidemia, and obesity. She has a history of seizures with her last seizure occurring in the and is not maintained on antiseizure medication. The patient was recently hospitalized from 06/06/2017 until 06/10/2017 with similar symptoms. At that time an x-ray was completed which was negative for acute abdomen. Stool was negative for C. diff. CT of the abdomen completed on 06/09/2017 revealed persistent small to moderate size hiatal hernia with mild wall thickening, diverticula in the right colon, no suspicious moles or large bowel dilation, and probably rectal pouch which contained a few diverticula in the pelvis, and no evidence of bowel obstruction. The patient also had a mild pancreatitis at that time which was resolved at time of discharge. The patient was thought to have gastroenteritis and was discharged home. In the emergency room, a computed tomography scan of the abdomen and pelvis was completed which revealed diverticulosis with findings suggestive of enteritis rather than ischemia. amylase 88, and lipase 286. Stool for C. diff was negative. She was started on D5.45 at 75 mL an hour secondary to hypoglycemia with improvement in her blood glucose. On 06/15/2017 Patient is complaining of left upper lower quadrant abdominal pain. Denies nausea or vomiting. Patient was started on clear liquids. General surgery is following. Patient remains somewhat confused at times. No fever no chills. Objective - Vital Signs Vital signs: Vital Signs Temp 97.4 F L 06/15/17 07:00 Pulse 61 06/15/17 08:00 Resp 18 06/15/17 08:00 BP 128/61 06/15/17 07:00 Pulse Ox 96 06/15/17 07:00 Intake & Output 06/14/17 06/15/17 06/15/17 18:59 06:59 18:59 Intake Total 160 Output Total 300 Balance -300 160 Intake: Oral 160 Output: Other 300 Other: Voiding Method Toilet Bedside Commode Bedside Commode Diaper Incontinent # Voids 1 2 3 # Bowel Movements 1 - Exam PHYSICAL EXAMINATION: Patient is lying in the bed comfortably, no acute distress, awake alert and oriented.. Confused at times HEENT: Normocephalic. Neck is supple. Pupils reactive. Nostrils clear. Oral cavity is moist. Ears reveal no drainage. Neck reveals no JVD, carotid bruits, or thyromegaly. CHEST EXAMINATION: Trachea is central. Symmetrical expansion. Lung gracia clear to auscultation and percussion. CARDIAC: Normal S1, S2 with no gallops. No murmurs ABDOMEN: Soft. Mild left lower quadrant tenderness Bowel sounds normal. No organomegaly. No abdominal bruits. Extremities: reveal no edema. No clubbing or cyanosis Neurologically awake, alert, oriented x3 with well-coordinated movements. No focal deficits noted Skin: No rash or skin lesions. Psychiatric: Coperative. Nonsuicidal Musculoskeletal: No joint swelling or deformity. Normal range of motion. - Labs CBC & Chem 7: 06/16/17 07:52 06/16/17 09:43 Labs: Abnormal Lab Results - Last 24 Hours (Table) 06/14/17 06/14/17 06/15/17 Range/Units 17:40 20:11 07:13 Chloride 112 H (98-107) mmol/L Carbon Dioxide 20 L (22-30) mmol/L BUN 6 L (7-17) mg/dL Glucose 139 H (74-99) mg/dL POC Glucose (mg/dL) 109 H 113 H (75-99) mg/dL 06/15/17 06/15/17 Range/Units 07:42 11:19 Chloride (98-107) mmol/L Carbon Dioxide (22-30) mmol/L BUN (7-17) mg/dL Glucose (74-99) mg/dL POC Glucose (mg/dL) 126 H 118 H (75-99) mg/dL Microbiology - Last 24 Hours (Table) 06/13/17 12:00 Stool Culture - Preliminary Stool Assessment and Plan Assessment: Acute abdominal pain likely due to enteritis., stool for c-diff negative, CT abdomen reveals diverticulosis and enteritis, recent diagnosis of gastroenteritis Recent hospitalization secondary to abdominal pain and increased stool output and diagnosed with gastroenteritis Hypoglycemia, secondary to decreased oral intake and glipizide which is on hold at this time. History of exploratory laparotomy, lysis of adhesions, and small bowel resection in November 2016 History of exploratory laparotomy, lysis of adhesions, small bowel resection, appendectomy, and sigmoid colectomy with end colostomy in March 2017 Chronic diastolic congestive heart failure, most recent echocardiogram reveals EF greater than 55% History of gastroesophageal reflux disease History of diabetes mellitus, type II, recent hemoglobin A1c 4.7%, History of dementia History of coronary artery disease with previous myocardial infarction Hyperlipidemia History of seizure disorder, not maintained on antiseizure medications with last seizure occurring in the 1970s PLAN: Patient will be continued on hydration with D5 half normal saline. Stool culture negative. Diarrhea is improved. No complaints of nausea vomiting today. Patient was started on clear liquids advance as tolerated. General surgery is following. Continue with CBC monitoring. GI and DVT prophylaxis. Further recommendations based on the clinical course. Patient lives at home with the help of her sister. Time with Patient: Greater than 30
--- NOTE | 2017-06-16 21:55 | P.PN ---
Subjective Progress Note Date: 06/16/17 Principal diagnosis: Enteritis 66-year-old female who presented to the emergency room on 06/12/2017 with a chief complaint of left lower quadrant abdominal pain. The patient has a history of exploratory laparotomy with lysis of adhesions and small bowel resection in 2016. She also underwent an expiratory laparotomy, lysis of adhesions, small bowel resection, appendectomy, and sigmoid colectomy with end colostomy in March 2017. She has a history of diastolic congestive heart failure, gastroesophageal reflux disease, diabetes mellitus, dementia, coronary artery disease with previous myocardial infection, hyperlipidemia, and obesity. She has a history of seizures with her last seizure occurring in the and is not maintained on antiseizure medication. The patient was recently hospitalized from 06/06/2017 until 06/10/2017 with similar symptoms. At that time an x-ray was completed which was negative for acute abdomen. Stool was negative for C. diff. CT of the abdomen completed on 06/09/2017 revealed persistent small to moderate size hiatal hernia with mild wall thickening, diverticula in the right colon, no suspicious moles or large bowel dilation, and probably rectal pouch which contained a few diverticula in the pelvis, and no evidence of bowel obstruction. The patient also had a mild pancreatitis at that time which was resolved at time of discharge. The patient was thought to have gastroenteritis and was discharged home. In the emergency room, a computed tomography scan of the abdomen and pelvis was completed which revealed diverticulosis with findings suggestive of enteritis rather than ischemia. amylase 88, and lipase 286. Stool for C. diff was negative. She was started on D5.45 at 75 mL an hour secondary to hypoglycemia with improvement in her blood glucose. On 06/15/2017 Patient is complaining of left upper lower quadrant abdominal pain. Denies nausea or vomiting. Patient was started on clear liquids. General surgery is following. Patient remains somewhat confused at times. No fever no chills. 06/16/2017 Patient tolerated liquid diet which will be advanced. Diarrhea improved. No nausea vomiting or abdominal pain. No fever no chills. Patient was confused this morning but remained more awake and oriented now. No other acute overnight issues. All other review of systems negative except about Current medications reviewed Objective - Vital Signs Vital signs: Vital Signs Temp 98.6 F 06/16/17 21:35 Pulse 80 06/16/17 21:35 Resp 18 06/16/17 21:35 BP 133/74 06/16/17 21:35 Pulse Ox 96 06/16/17 21:35 Intake & Output 06/16/17 06/16/17 06/17/17 06:59 18:59 06:59 Output Total 300 200 200 Balance -300 -200 -200 Output: Stool 300 200 200 Other: Voiding Method Bedside Commode Bedside Commode # Voids 1 2 - Exam PHYSICAL EXAMINATION: Patient is lying in the bed comfortably, no acute distress, awake alert and oriented.. Confused at times HEENT: Normocephalic. Neck is supple. Pupils reactive. Nostrils clear. Oral cavity is moist. Ears reveal no drainage. Neck reveals no JVD, carotid bruits, or thyromegaly. CHEST EXAMINATION: Trachea is central. Symmetrical expansion. Lung gracia clear to auscultation and percussion. CARDIAC: Normal S1, S2 with no gallops. No murmurs ABDOMEN: Soft. Mild left lower quadrant tenderness Bowel sounds normal. No organomegaly. No abdominal bruits. Extremities: reveal no edema. No clubbing or cyanosis Neurologically awake, alert, oriented x3 with well-coordinated movements. No focal deficits noted Skin: No rash or skin lesions. Psychiatric: Coperative. Nonsuicidal Musculoskeletal: No joint swelling or deformity. Normal range of motion. - Labs CBC & Chem 7: 06/16/17 07:52 06/16/17 09:43 Labs: Abnormal Lab Results - Last 24 Hours (Table) 06/16/17 06/16/17 06/16/17 Range/Units 09:43 11:47 17:19 Chloride 112 H (98-107) mmol/L Carbon Dioxide 18 L (22-30) mmol/L BUN 5 L (7-17) mg/dL Glucose 127 H (74-99) mg/dL POC Glucose (mg/dL) 112 H 112 H (75-99) mg/dL 06/16/17 Range/Units 20:19 Chloride (98-107) mmol/L Carbon Dioxide (22-30) mmol/L BUN (7-17) mg/dL Glucose (74-99) mg/dL POC Glucose (mg/dL) 133 H (75-99) mg/dL Microbiology - Last 24 Hours (Table) 06/13/17 12:00 Stool Culture - Final Stool Assessment and Plan Assessment: Acute abdominal pain likely due to enteritis. stool for c-diff negative, CT abdomen reveals diverticulosis and enteritis, recent diagnosis of gastroenteritis. Improving Altered mental status possible metabolic encephalopathy. Improving now. Recent hospitalization secondary to abdominal pain and increased stool output and diagnosed with gastroenteritis Hypoglycemia, secondary to decreased oral intake and glipizide which is on hold at this time. History of exploratory laparotomy, lysis of adhesions, and small bowel resection in November 2016 History of exploratory laparotomy, lysis of adhesions, small bowel resection, appendectomy, and sigmoid colectomy with end colostomy in March 2017 Chronic diastolic congestive heart failure, most recent echocardiogram reveals EF greater than 55% History of gastroesophageal reflux disease History of diabetes mellitus, type II, recent hemoglobin A1c 4.7%, History of dementia History of coronary artery disease with previous myocardial infarction Hyperlipidemia History of seizure disorder, not maintained on antiseizure medications with last seizure occurring in the PLAN: Patient will be continued on hydration with D5 half normal saline. Blood sugar is improved now. We will discontinue D5 tomorrow a.m. and follow-up CBC closely. Stool culture negative. Diarrhea is improved. No complaints of nausea vomiting today. Patient was started on clear liquids advance as tolerated. General surgery is following. Continue with CBC monitoring. GI and DVT prophylaxis. Further recommendations based on the clinical course. Patient lives at home with the help of her sister. Time with Patient: Greater than 30
[2017-06-17] MEDS: D5-0.45% NACL WITH KCL 20MEQ/L 1,000 ML IV SCH (04:08)
[2017-06-17] MEDS: MONTELUKAST 10 MG TAB PO SCH (08:07)
[2017-06-17] MEDS: FAMOTIDINE 20 MG TAB PO SCH (08:07)
[2017-06-17] MEDS: HEPARIN SODIUM,PORCINE 5,000 UNIT/ML 1 ML VIAL SQ SCH (08:07)
[2017-06-17] MEDS: MEMANTINE 10 MG TAB PO SCH (08:08)
[2017-06-17] MEDS: SERTRALINE 50 MG TAB PO SCH (08:08)
[2017-06-17] MEDS: LORATADINE 10 MG TAB PO SCH (08:08)
[2017-06-17] MEDS: DONEPEZIL 10 MG TAB PO SCH (08:08)
[2017-06-17 08:10] LABS: Glucose,Whole Blood 105 mg/dL (75-99)
[2017-06-17 08:43] VITALS: BP 124/60; PULSE 61; RESP 16; TEMP 97.8
--- NOTE | 2017-06-17 10:16 | P.DS ---
Providers Date of admission: 06/12/17 15:16 Expected date of discharge: 06/17/17 Attending physician: Jerry Golden Consults: 06/12/17 15:16 Consult Physician Urgent Consulting Provider: Jose Juan Leal Consult Reason/Comments: abdominal pain Do you want consulting provider notified?: Already Contacted Primary care physician: [facility] Course: 66-year-old female who presented to the emergency room on 06/12/2017 with a chief complaint of left lower quadrant abdominal pain. The patient has a history of exploratory laparotomy with lysis of adhesions and small bowel resection in 2016. She also underwent an expiratory laparotomy, lysis of adhesions, small bowel resection, appendectomy, and sigmoid colectomy with end colostomy in March 2017. She has a history of diastolic congestive heart failure, gastroesophageal reflux disease, diabetes mellitus, dementia, coronary artery disease with previous myocardial infection, hyperlipidemia, and obesity. She has a history of seizures with her last seizure occurring in the and is not maintained on antiseizure medication. The patient was recently hospitalized from 06/06/2017 until 06/10/2017 with similar symptoms. At that time an x-ray was completed which was negative for acute abdomen. Stool was negative for C. diff. CT of the abdomen completed on 06/09/2017 revealed persistent small to moderate size hiatal hernia with mild wall thickening, diverticula in the right colon, no suspicious moles or large bowel dilation, and probably rectal pouch which contained a few diverticula in the pelvis, and no evidence of bowel obstruction. The patient also had a mild pancreatitis at that time which was resolved at time of discharge. The patient was thought to have gastroenteritis and was discharged home. In the emergency room, a computed tomography scan of the abdomen and pelvis was completed which revealed diverticulosis with findings suggestive of enteritis rather than ischemia. Laboratory studies revealed WBC 11.1, hemoglobin 13.7, platelet count 215. Sodium 144, potassium 4.2, BUN 15, creatinine 1.08, glucose 55, lactic acid 1.1, AST 21, ALC 22, troponin negative 1, amylase 88, and lipase 286. Stool for C. diff was negative. She was started on D5.45 at 75 mL an hour secondary to hypoglycemia with improvement in her blood glucose. She was admitted for observation under the care of Dr. Golden. Consultations were placed to Dr. Leal. She was evaluated by general surgery and no intervention was recommended from their standpoint. Her diet was advanced and she is currently tolerating oral intake without nausea or vomiting. Her vital signs have remained stable. The patients abdominal pain has improved during her stay at the hospital. She was deemed stable for discharge per Dr. Golden. She is to follow up on an outpatient basis. She is to continue to hold her glipizide until her appetite increases and she is tolerating more oral intake. Discharge diagnosis Acute abdominal pain, stool for c-diff negative, CT abdomen reveals diverticulosis and enteritis, suspect noninfective gastroenteritis and colitis per general surgery, improved at the time of discharge Recent hospitalization secondary to abdominal pain and increased stool output and diagnosed with gastroenteritis Hypoglycemia, secondary to decreased oral intake, improved at the time of discharge History of exploratory laparotomy, lysis of adhesions, and small bowel resection in November 2016 History of exploratory laparotomy, lysis of adhesions, small bowel resection, appendectomy, and sigmoid colectomy with end colostomy in March 2017 Chronic diastolic congestive heart failure, most recent echocardiogram reveals EF greater than 55% History of gastroesophageal reflux disease History of diabetes mellitus, type II, recent hemoglobin A1c 4.7%, History of dementia History of coronary artery disease with previous myocardial infarction Hyperlipidemia History of seizure disorder, not maintained on antiseizure medications with last seizure occurring in the 1970s Nurse practitioner note has been reviewed by physician. Signing provider agrees with the documented findings, assessment, and plan of care. Patient Condition at Discharge: Fair Plan - Discharge Summary Discharge Rx Participant: No New Discharge Prescriptions: Continue Albuterol Sulfate [Proair Hfa] 2 puff INHALATION RT-QID PRN PRN Reason: Shortness Of Breath Donepezil [Aricept] 10 mg PO DAILY Montelukast Sodium [Singulair] 10 mg PO DAILY Omeprazole [PriLOSEC] 20 mg PO HS Loratadine 10 mg PO DAILY risperiDONE [RisperDAL] 1 mg PO HS Sertraline [Zoloft] 50 mg PO DAILY Famotidine [Pepcid] 20 mg PO DAILY traMADol HCL [Ultram] 50 mg PO BID PRN PRN Reason: Pain Mirtazapine [Remeron] 7.5 mg PO HS Memantine HCl [Namenda Xr] 28 mg PO DAILY Discontinued glipiZIDE [Glucotrol] 5 mg PO DAILY Discharge Medication List Albuterol Sulfate [Proair Hfa] 2 puff INHALATION RT-QID PRN 06/24/14 [History] Donepezil [Aricept] 10 mg PO DAILY 02/07/15 [History] Loratadine 10 mg PO DAILY 06/28/16 [History] Montelukast Sodium [Singulair] 10 mg PO DAILY 06/28/16 [History] Omeprazole [PriLOSEC] 20 mg PO HS 06/28/16 [History] risperiDONE [RisperDAL] 1 mg PO HS 08/16/16 [History] Sertraline [Zoloft] 50 mg PO DAILY 11/22/16 [History] Famotidine [Pepcid] 20 mg PO DAILY 06/03/17 [History] traMADol HCL [Ultram] 50 mg PO BID PRN 06/06/17 [History] Memantine HCl [Namenda Xr] 28 mg PO DAILY 06/12/17 [History] Mirtazapine [Remeron] 7.5 mg PO HS 06/12/17 [History] Follow up Appointment(s)/Referral(s): Jerry Golden DO [Primary Care Provider] - 1-2 days Activity/Diet/Wound Care/Special Instructions: Hold Glipizide until abdominal pain improves and your appetite increases and you are eating more food Discharge Disposition: HOME SELF-CARE
== END 2017-06-17 13:30 | disposition home or self-care (01) ==
LOC: EC 11:01 → 5MS5E 15:16
PROVIDERS: ADMIT Family Medicine; ATTEND Family Medicine
DX: R10.32 Left lower quadrant pain (principal); K57.30 Diverticulosis of large intestine without perforation or abscess without bleeding; K52.9 Noninfective gastroenteritis and colitis, unspecified; Z93.3 Colostomy status; K44.9 Diaphragmatic hernia without obstruction or gangrene; Z90.49 Acquired absence of other specified parts of digestive tract; E11.649 Type 2 diabetes mellitus with hypoglycemia without coma; E11.51 Type 2 diabetes mellitus with diabetic peripheral angiopathy without gangrene; K21.9 Gastro-esophageal reflux disease without esophagitis; J45.909 Unspecified asthma, uncomplicated; I50.32 Chronic diastolic (congestive) heart failure; I25.2 Old myocardial infarction; I25.10 Atherosclerotic heart disease of native coronary artery without angina pectoris; G47.33 Obstructive sleep apnea (adult) (pediatric); G40.909 Epilepsy, unspecified, not intractable, without status epilepticus; F03.90 Unspecified dementia, unspecified severity, without behavioral disturbance, psychotic disturbance, mood disturbance, and anxiety; E78.5 Hyperlipidemia, unspecified; N28.9 Disorder of kidney and ureter, unspecified; F31.9 Bipolar disorder, unspecified; F41.9 Anxiety disorder, unspecified; M19.90 Unspecified osteoarthritis, unspecified site; E66.9 Obesity, unspecified; Z68.25 Body mass index [BMI] 25.0-25.9, adult; Z99.89 Dependence on other enabling machines and devices; Z98.890 Other specified postprocedural states; G20 Parkinson's disease; Z79.84 Long term (current) use of oral hypoglycemic drugs; Z79.899 Other long term (current) drug therapy; Z87.891 Personal history of nicotine dependence; Z88.1 Allergy status to other antibiotic agents; Z88.5 Allergy status to narcotic agent; Z88.2 Allergy status to sulfonamides; Z88.8 Allergy status to other drugs, medicaments and biological substances; Z86.718 Personal history of other venous thrombosis and embolism; Z80.1 Family history of malignant neoplasm of trachea, bronchus and lung; Z82.49 Family history of ischemic heart disease and other diseases of the circulatory system
CPT/HCPCS: 99285 ×2; 96375 ×2; 96361 ×8; 96376 ×3; 96365; 96366 ×3; 96372 ×5; 36415; 80053 ×2; 80048 ×3; 82150; 83605; 83690; 84484; 85025 ×5; 85610; 85730; 87324; 87045; 87046; 83036; 74177; G0378 ×6; J1170 ×3; J1644 ×5; Q9967

== ENCOUNTER 2017-07-23 08:38 | Day surgery (SDC) | payer MEDICARE, OTHER ==
[2017-07-22 12:21] VITALS: BMI 27.6
[~2017-07-23 08:38] MED LIST changes: +Pre Op ABX Message 1 EACH MISC MISCELLANE ONE
[2017-07-23] MEDS: CYCLOPENTOLATE 1% OPHTH SOLN 2 ML BTL OP ONE ×3 (09:55→10:12)
[2017-07-23 09:56] VITALS: TEMP 97.5
[2017-07-23] MEDS: FLURBIPROFEN 0.03% OPHTH DROPS 2.5 ML BTL BOTH EYES SCH ×3 (09:58→10:13)
[2017-07-23] MEDS: PHENYLEPHRINE 10% OPHTH DROPS 5 ML BTL OP ONE ×3 (10:03→10:13)
[2017-07-23] MEDS ORDERED: LIDOCAINE 1% 20 ML VIAL (10MG/ML) FOR IV START INTRADERMA ONE (10:04)
[2017-07-23] MEDS ORDERED: PROPOFOL 10 MG/ML 20 ML VIAL IV ONE (10:14)
[2017-07-23] MEDS ORDERED: EPINEPHrine (PF) 0.5 ML in BALANCED SALT IRRIG SOLN COMB2 500 ML IRRIGATION ONE (10:15)
[2017-07-23] MEDS ORDERED: BALANCED SALT IRRIG SOLN COMB2 15 ML IRRIG.SOLN INTRAOCULA ONE (10:24)
[2017-07-23] MEDS ORDERED: HYALURONATE SODIUM INTRAOCULAR 1 EACH SYRINGE (10MG/ML) INTRAOCULA ONE (10:24)
--- NOTE | 2017-07-23 10:42 | P.OP ---
Date of Procedure: 07/23/17 Procedure(s) Performed: PREOPERATIVE DIAGNOSIS: Cataract, left eye. POSTOPERATIVE DIAGNOSIS: Cataract, left eye. OPERATION: Phacoemulsification cataract, left eye. DESCRIPTION OF PROCEDURE: The patient was taken to the preoperative holding area. Intravenous Propofol was given so as to bring about adequate sedation. The following mixture was given for local anesthesia: 5 mL of 2% lidocaine, 5 mL of 0.75% Marcaine, and 1 mL of Wydase. Approximately 4 mL was injected in the retrobulbar space of the surgical eye. Additional 1 mL was then directed to the temporal area of the surgical eye. This was performed to allow adequate neurological block of the facial muscles. The patient was revived and then taken into the operative room. The patient was prepped and draped in the usual sterile manner for the operative eye. A lid speculum was put into position. The conjunctiva was resected back from the limbus in the 12 o'clock position. Bleeding was controlled with electrocautery. A #69 blade was then used and a half-thickness scleral incision approximately 1-mm posterior to the limbus was made on bare sclera. This was shelved in the clear cornea using a crescent knife. Next a 15-degree blade was used to make a stab incision at the 3 o' clock position at the corneolimbal interface. Keratome blade was then used and the superior wound was extended into the anterior chamber. Viscoelastic was injected into the anterior chamber and to maintain its form. A [place] ring was placed into the eye and the pupil stretched into position. Next, a cystotome was used and a continuous anterior capsulotomy was made without difficulty. Hydrodissection using a blunt cannula and BSS was performed. Phaco probe was then employed and a groove extending from 12 to 6 o'clock in the lens was created. A Bertin wand was used through the stab incision so as to perform a divide and conquer technique. Next an irrigation aspiration probe was utilized and any residual cortex was removed from the eye. Again, viscoelastic was injected into the anterior chamber. An Jairo posterior chamber lens implant was placed in the cartridge and injected into the anterior chamber without difficulty. The [place] hook was utilized to spin the lens into position and this was again performed without any difficulty. The Maluygin ring was removed from the eye. The irrigation and aspiration probe was again employed and any residual viscoelastic was removed from the eye. Then BSS was injected into the limbal stab incision and the anterior chamber re- inflated. The conjunctiva was reapproximated using electrocautery. One drop of 0.25% Timoptic was placed over the corneal along with TobraDex ophthalmic ointment. Two sterile patches and a Key eye shield were taped into position. The patient was transported to the recovery room in stable condition. Pathology: none sent Condition: stable Disposition: same day
[2017-07-23 10:44] VITALS: RESP 18
[2017-07-23 10:59] VITALS: BP 112/70; PULSE 62
[2017-07-23] MEDS ORDERED: BUPIVACAINE (PF) 0.75% 5 ML, HYALURONIDASE, HUMAN RECOMB 150 UNIT, LIDOCAINE 2% (PF) 10... MISCELLANE ONE ×3 (23:00)
[2017-07-23] MEDS ORDERED: TIMOLOL 0.5% OPHTH DROPS 5 ML BTL OP ONE (23:00)
[2017-07-23] MEDS ORDERED: GENTAMICIN/PREDNISOL AC OPHTH OINT 3.5GM OPHTHALMIC ONE (23:00)
== END 2017-07-23 11:22 | disposition home or self-care (01) ==
LOC: OR 08:38
PROVIDERS: ATTEND Ophthalmology
DX: E11.36 Type 2 diabetes mellitus with diabetic cataract (principal); E11.29 Type 2 diabetes mellitus with other diabetic kidney complication; H17.9 Unspecified corneal scar and opacity; K21.9 Gastro-esophageal reflux disease without esophagitis; J44.9 Chronic obstructive pulmonary disease, unspecified; G30.9 Alzheimer's disease, unspecified; F02.80 Dementia in other diseases classified elsewhere, unspecified severity, without behavioral disturbance, psychotic disturbance, mood disturbance, and anxiety; M19.90 Unspecified osteoarthritis, unspecified site; I25.10 Atherosclerotic heart disease of native coronary artery without angina pectoris; I11.0 Hypertensive heart disease with heart failure; I50.9 Heart failure, unspecified; I25.2 Old myocardial infarction; Z86.718 Personal history of other venous thrombosis and embolism; Z86.79 Personal history of other diseases of the circulatory system; G47.33 Obstructive sleep apnea (adult) (pediatric); Z99.89 Dependence on other enabling machines and devices; F31.9 Bipolar disorder, unspecified; R56.9 Unspecified convulsions; K57.90 Diverticulosis of intestine, part unspecified, without perforation or abscess without bleeding; Z90.49 Acquired absence of other specified parts of digestive tract; Z79.891 Long term (current) use of opiate analgesic; Z79.899 Other long term (current) drug therapy; Z88.5 Allergy status to narcotic agent; Z88.2 Allergy status to sulfonamides; Z88.8 Allergy status to other drugs, medicaments and biological substances
CPT/HCPCS: 66984; V2632; J3470; J2001; J0171; J2704

== ENCOUNTER → 2017-07-25 | Outpatient (CLI) | payer MEDICARE, OTHER ==
[2017-07-25 17:48] LABS: Blood Urea Nitrogen 16 mg/dL (7-17)
--- NOTE | 2017-07-26 08:24 | CT ---
EXAMINATION TYPE: CT abdomen pelvis w con DATE OF EXAM: 07/25/2017 COMPARISON: Prior CT abdomen pelvis 06/12/2017 HISTORY: Left lower quadrant pain x [address] DLP: 502.7 mGycm Automated exposure control for dose reduction was used. TECHNIQUE: Helical acquisition of images from the lung bases through the pelvis have been completed. CONTRAST: Performed with Oral Contrast and with IV Contrast, patient injected with 100 mL of Omnipaque 300. FINDINGS: Gastroesophageal junction shows abnormal thickening of the distal esophagus, there may be a small hiatal hernia additionally. Postop changes are noted along the anterior abdominal wall. Ostomy present in the left lower quadrant as on prior. There is motion on the exam. LUNG BASES: No significant abnormality is appreciated. AORTA: No significant abnormality is appreciated. LIVER/GB: Patient is post cholecystectomy. Liver shows a stable appearance. PANCREAS: No significant abnormality is seen. SPLEEN: No significant abnormality is seen. ADRENALS: No significant abnormality is seen. KIDNEYS: No significant abnormality is seen. REPRODUCTIVE ORGANS: Absent BOWEL: Extensive diverticular changes are again noted, colonic wall thickening distally is indetermi mary but unchanged, difficult to exclude a mucosal lesion. Sensitivity may be limited by motion. No e vident bowel obstruction. FREE AIR: No Free Air visible. ASCITES: None visible. PELVIC ADENOPATHY: None visualized. RETROPERITONEAL ADENOPATHY: No Retroperitoneal Adenopathy visible. URINARY BLADDER: No significant abnormality is seen. OSSEOUS STRUCTURES: Degenerative disc changes in the visualized spine, there is a spinal curvature. Findings are stable. IMPRESSION: POSTOP CHANGES AND DIVERTICULOSIS. LIMITATIONS DESCRIBED. FINDINGS IN THE DISTAL ESOPHAGUS DESC RIBED, CONSIDER DIRECT VISUALIZATION.
== END | disposition home or self-care (01) ==
LOC: RADCTMAIN 17:05
PROVIDERS: ATTEND Surgery
DX: K22.8 Other specified diseases of esophagus (principal)
CPT/HCPCS: 82565; 84520; 74177; 36415; Q9967

== ENCOUNTER 2017-08-20 07:08 | Day surgery (SDC) | payer MEDICARE, OTHER ==
[2017-08-16 13:00] VITALS: BMI 27.2
[~2017-08-20 07:08] MED LIST changes: +LIDOCAINE 1% 20 ML VIAL (10MG/ML) FOR IV START INTRADERMA PRN; +ONDANSETRON 4 MG/2 ML VIAL IVP ONE
[2017-08-20] MEDS: PHENYLEPHRINE 10% OPHTH DROPS 5 ML BTL OP ONE ×3 (08:01→08:19)
[2017-08-20 08:04] VITALS: TEMP 98.5
[2017-08-20] MEDS: CYCLOPENTOLATE 1% OPHTH SOLN 2 ML BTL OP ONE ×3 (08:04→08:22)
[2017-08-20] MEDS: FLURBIPROFEN 0.03% OPHTH DROPS 2.5 ML BTL OP ONE ×3 (08:07→08:25)
[2017-08-20 08:19] LABS: Glucose,Whole Blood 106 mg/dL (75-99)
[2017-08-20] MEDS ORDERED: PROPOFOL 10 MG/ML 20 ML VIAL IV ONE (09:09)
[2017-08-20] MEDS ORDERED: LIDOCAINE 1% INJ 10MG/ML (20 ML MDV) ONE (09:09)
[2017-08-20] MEDS ORDERED: BALANCED SALT IRRIG SOLN COMB2 15 ML IRRIG.SOLN INTRAOCULA ONE (09:22)
[2017-08-20] MEDS ORDERED: EPINEPHrine (PF) 0.5 ML in BALANCED SALT IRRIG SOLN COMB2 500 ML IRRIGATION ONE (09:22)
[2017-08-20] MEDS ORDERED: HYALURONATE SODIUM INTRAOCULAR 1 EACH SYRINGE (10MG/ML) INTRAOCULA ONE (09:22)
--- NOTE | 2017-08-20 09:30 | P.OP ---
Date of Procedure: 08/20/17 Procedure(s) Performed: PREOPERATIVE DIAGNOSIS: Cataract, right eye. POSTOPERATIVE DIAGNOSIS: Cataract, right eye. OPERATION: Phacoemulsification cataract, right eye. DESCRIPTION OF PROCEDURE: The patient was taken to the preoperative holding area. Intravenous Propofol was given so as to bring about adequate sedation. The following mixture was given for local anesthesia: 5 mL of 2% lidocaine, 5 mL of 0.75% Marcaine, and 1 mL of Wydase. Approximately 4 mL was injected in the retrobulbar space of the surgical eye. Additional 1 mL was then directed to the temporal area of the surgical eye. This was performed to allow adequate neurological block of the facial muscles. The patient was revived and then taken into the operative room. The patient was prepped and draped in the usual sterile manner for the operative eye. A lid speculum was put into position. The conjunctiva was resected back from the limbus in the 12 o'clock position. Bleeding was controlled with electrocautery. A #69 blade was then used and a half-thickness scleral incision approximately 1-mm posterior to the limbus was made on bare sclera. This was shelved in the clear cornea using a crescent knife. Next a 15-degree blade was used to make a stab incision at the 3 o' clock position at the corneolimbal interface. Keratome blade was then used and the superior wound was extended into the anterior chamber. Viscoelastic was injected into the anterior chamber and to maintain its form. Next, a cystotome was used and a continuous anterior capsulotomy was made without difficulty. Hydrodissection using a blunt cannula and BSS was performed. Phaco probe was then employed and a groove extending from 12 to 6 o'clock in the lens was created. A Bertin wand was used through the stab incision so as to perform a divide and conquer technique. Next an irrigation aspiration probe was utilized and any residual cortex was removed from the eye. Again, viscoelastic was injected into the anterior chamber. An Jairo posterior chamber lens implant was placed in the cartridge and injected into the anterior chamber without difficulty. The [employer] hook was utilized to spin the lens into position and this was again performed without any difficulty. The irrigation and aspiration probe was again employed and any residual viscoelastic was removed from the eye. Then BSS was injected into the limbal stab incision and the anterior chamber re-inflated. The conjunctiva was reapproximated using electrocautery. One drop of 0.25% Timoptic was placed over the corneal along with TobraDex ophthalmic ointment. Two sterile patches and a Key eye shield were taped into position. The patient was transported to the recovery room in stable condition. Pathology: none sent Condition: stable Disposition: same day
[2017-08-20 10:01] VITALS: BP 138/84; PULSE 54; RESP 18
[2017-08-20] MEDS ORDERED: BUPIVACAINE (PF) 0.75% 5 ML, HYALURONIDASE, HUMAN RECOMB 150 UNIT, LIDOCAINE 2% (PF) 10... MISCELLANE ONE ×3 (23:00)
[2017-08-20] MEDS ORDERED: GENTAMICIN/PREDNISOL AC OPHTH OINT 3.5GM OPHTHALMIC ONE (23:00)
[2017-08-20] MEDS ORDERED: TIMOLOL 0.5% OPHTH DROPS 5 ML BTL OP ONE (23:00)
== END 2017-08-20 10:10 | disposition home or self-care (01) ==
LOC: OR 07:08
PROVIDERS: ATTEND Ophthalmology
DX: E11.36 Type 2 diabetes mellitus with diabetic cataract (principal); K21.9 Gastro-esophageal reflux disease without esophagitis; J44.9 Chronic obstructive pulmonary disease, unspecified; G30.9 Alzheimer's disease, unspecified; M19.90 Unspecified osteoarthritis, unspecified site; I10 Essential (primary) hypertension; D64.9 Anemia, unspecified; G47.33 Obstructive sleep apnea (adult) (pediatric); Z99.89 Dependence on other enabling machines and devices; Z87.891 Personal history of nicotine dependence; F41.9 Anxiety disorder, unspecified; N31.9 Neuromuscular dysfunction of bladder, unspecified; Z79.891 Long term (current) use of opiate analgesic; Z79.899 Other long term (current) drug therapy; Z88.5 Allergy status to narcotic agent; Z88.2 Allergy status to sulfonamides; Z88.8 Allergy status to other drugs, medicaments and biological substances
CPT/HCPCS: 66984; V2632; J3470; J2001 ×2; J0171; J2704

== ENCOUNTER 2017-08-30 15:22 | Emergency (ER) | payer MEDICARE, OTHER ==
[2017-08-30 15:33] VITALS: TEMP 98.2
[2017-08-30] MEDS ORDERED: SODIUM CHLORIDE 0.9% 1,000 ML IV STA (15:41)
[2017-08-30] MEDS ORDERED: ONDANSETRON 4 MG/2 ML VIAL IVP STA (15:41)
[2017-08-30 16:25] LABS: Basophils # (A) 0.1 k/uL (0-0.2); Basophils % (A) 1 %; Eosinophils # (A) 0.1 k/uL (0-0.7); Eosinophils % (A) 2 %; HCT 37.1 % (34.0-46.0); HGB 12.3 gm/dL (11.4-16.0); Lymphocytes # (A) 1.6 k/uL (1.0-4.8); Lymphocytes % (A) 19 %; MCH 28.5 pg (25.0-35.0); MCHC 33.1 g/dL (31.0-37.0); MCV 86.2 fL (80.0-100.0); Mean Platelet Volume 7.2; Monocytes # (A) 0.5 k/uL (0-1.0); Monocytes % (A) 6 %; Neutrophils # (A) 5.9 k/uL (1.3-7.7); Neutrophils % (A) 72 %; Platelet Count 195 k/uL (150-450); RDW 13.1 % (11.5-15.5); WBC 8.2 k/uL (3.8-10.6)
--- NOTE | 2017-08-30 16:30 | ED ---
Nausea/Vomiting/Diarrhea HPI - General Chief complaint: Nausea/Vomiting/Diarrhea Stated complaint: Vomiting Time Seen by Provider: 08/30/17 15:41 Source: patient, family, RN notes reviewed Mode of arrival: wheelchair Limitations: no limitations - History of Present Illness Initial comments: This a 67-year-old female presents emergency Department chief complaint abdominal pain. Patient states that she's been having some discomfort last few days but developed vomiting today. Patient reports right lower quadrant abdominal pain and some left sided abdominal pain. Patient states that she had no fever. Colostomy was done in April after bowel resection secondary to diverticulitis. Patient is known to Dr. Leal and Dr. Hernández. Patient caregiver states that she does not want eat much because of discomfort. Denies any dysuria no hematuria. Denies any chest pain or shortness breath. - Related Data Home Medications Medication Instructions Recorded Confirmed Albuterol Sulfate [Proair Hfa] 2 puff INHALATION RT-QID PRN 06/24/14 08/30/17 Donepezil [Aricept] 10 mg PO DAILY 02/07/15 08/30/17 Loratadine 10 mg PO DAILY 06/28/16 08/30/17 Montelukast Sodium [Singulair] 10 mg PO DAILY 06/28/16 08/30/17 Omeprazole [PriLOSEC] 20 mg PO HS 06/28/16 08/30/17 Sertraline [Zoloft] 50 mg PO DAILY 11/22/16 08/30/17 traMADol HCL [Ultram] 50 mg PO BID PRN 06/06/17 08/30/17 Memantine HCl [Namenda Xr] 28 mg PO DAILY 06/12/17 08/30/17 Mirtazapine [Remeron] 7.5 mg PO HS 06/12/17 08/30/17 Potassium Chloride [Klor-Con 20] 20 meq PO DAILY 08/30/17 08/30/17 Previous Rx's Medication Instructions Recorded Ciprofloxacin HCl [Cipro] 500 mg PO Q12HR #14 tablet 08/30/17 Allergies Allergy/AdvReac Type Severity Reaction Status Date / Time codeine Allergy Rash/Hives Verified 08/30/17 15:51 lorazepam [From Ativan] Allergy Rash/Hives Verified 08/30/17 15:51 oxaprozin [From Daypro] Allergy Rash/Hives Verified 08/30/17 15:51 Sulfa (Sulfonamide Allergy Rash/Hives Verified 08/30/17 15:51 Antibiotics) baclofen AdvReac Unknown Psychotic Verified 08/30/17 15:51 Episode cyclobenzaprine HCl AdvReac Confusion Verified 08/30/17 15:51 [From Flexeril] Review of Systems ROS Statement: Those systems with pertinent positive or pertinent negative responses have been documented in the HPI. ROS Other: All systems not noted in ROS Statement are negative. Past Medical History Past Medical History: Asthma, Coronary Artery Disease (CAD), Heart Failure, Dementia, Diabetes Mellitus, GERD/Reflux, Hyperlipidemia, Myocardial Infarction (DE), Neurologic Disorder, Osteoarthritis (OA), Pneumonia, Renal Disease, Seizure Disorder, Sleep Apnea/CPAP/BIPAP, Vascular Disorder Additional Past Medical History / Comment(s): Bronchial asthma, seizure disorder without medication, last seizure 1970s, does not use cpap, hx falls( past head injury /broken nose d/t fall), TMJ, chronic anemia, PVD, diverticulosis, cardiac murmur, hx pancreatitis, cataracts, early onset parkinsons, occassional abdominal pain, currently has ileostomy. Pneumonia one yr ago. Diet controlled diabetes. Last Myocardial Infarction Date:: 1991 History of Any Multi-Drug Resistant Organisms: None Reported Past Surgical History: Adenoidectomy, Appendectomy, Bowel Resection, Cholecystectomy, Hernia Repair, Hysterectomy, Joint Replacement, Orthopedic Surgery, Tonsillectomy Additional Past Surgical History / Comment(s): laparotomyX2, small bowel resection X2, lysis of adhesions, sigmoid colectomy w/ colostomy, Apr 2017 3rd bowel resection with ileostomy, (APPROX 10-12 YEARS AGO HAD partial colon resection with colostomy then reversal), SILVERIO KNEE ARTHROSCOPY, Right KNEE REPLACEMENT, EGDs and colonoscopies, lipomas off back, cyst off spine, eye duct surgery. Past Anesthesia/Blood Transfusion Reactions: Previous Problems w/ Anesthesia, Motion Sickness Additional Past Anesthesia/Blood Transfusion Reaction / Comment(s): DIFFICULTY WAKING UP. CLAUSTROPHOBIC Past Psychological History: Anxiety, Bipolar Smoking Status: Former smoker Past Alcohol Use History: None Reported Past Drug Use History: None Reported - Past Family History Father Family Medical History: Cancer Additional Family Medical History / Comment(s): lung cancer Mother Family Medical History: Congestive Heart Failure (CHF), Dementia, Myocardial Infarction (DE) General Exam Limitations: no limitations General appearance: alert, in no apparent distress Head exam: Present: atraumatic, normocephalic, normal inspection Respiratory exam: Present: normal lung sounds bilaterally. Absent: respiratory distress, wheezes, rales, rhonchi, stridor Cardiovascular Exam: Present: regular rate, normal rhythm, normal heart sounds. Absent: systolic murmur, diastolic murmur, rubs, gallop, clicks GI/Abdominal exam: Present: soft, tenderness (Moderate right lower quadrant), normal bowel sounds. Absent: distended, guarding, rebound, rigid Back exam: Absent: CVA tenderness (R), CVA tenderness (L) Skin exam: Present: warm, dry, intact, normal color. Absent: rash Course Vital Signs 08/30/17 08/30/17 15:30 17:33 Temperature 98.2 F Pulse Rate 79 83 Respiratory 18 20 Rate Blood Pressure 130/63 132/56 O2 Sat by Pulse 97 99 Oximetry Medical Decision Making - Medical Decision Making 67-year-old female presents from for abdominal discomfort vomiting. Patient has a urinary tract infection. Patient has not vomited since been emergency department. Patient was hydrated and was given Rocephin. Patient be discharged on Cipro. Return parameters were discussed. - Lab Data Result diagrams: 08/30/17 16:10 08/30/17 16:10 Lab Results 08/30/17 08/30/17 08/30/17 Range/Units 16:10 16:10 16:10 WBC 8.2 (3.8-10.6) k/uL RBC 4.30 (3.80-5.40) m/uL Hgb 12.3 (11.4-16.0) gm/dL Hct 37.1 (34.0-46.0) % MCV 86.2 (80.0-100.0) fL MCH 28.5 (25.0-35.0) pg MCHC 33.1 (31.0-37.0) g/dL RDW 13.1 (11.5-15.5) % Plt Count 195 (150-450) k/uL Neutrophils % 72 % Lymphocytes % 19 % Monocytes % 6 % Eosinophils % 2 % Basophils % 1 % Neutrophils # 5.9 (1.3-7.7) k/uL Lymphocytes # 1.6 (1.0-4.8) k/uL Monocytes # 0.5 (0-1.0) k/uL Eosinophils # 0.1 (0-0.7) k/uL Basophils # 0.1 (0-0.2) k/uL Sodium 142 (137-145) mmol/L Potassium 3.8 (3.5-5.1) mmol/L Chloride 105 (98-107) mmol/L Carbon Dioxide 27 (22-30) mmol/L Anion Gap 10 mmol/L BUN 20 H (7-17) mg/dL Creatinine 1.00 (0.52-1.04) mg/dL Est GFR (CKD-EPI)AfAm 68 (>60 ml/min/1.73 sqM) Est GFR (CKD-EPI)NonAf 59 (>60 ml/min/1.73 sqM) Glucose 127 H (74-99) mg/dL Plasma Lactic Acid Artie 1.0 (0.7-2.0) mmol/L Calcium 9.1 (8.4-10.2) mg/dL Total Bilirubin 0.3 (0.2-1.3) mg/dL AST 19 (14-36) U/L ALT 24 (9-52) U/L Alkaline Phosphatase 116 (38-126) U/L Total Protein 6.2 L (6.3-8.2) g/dL Albumin 3.6 (3.5-5.0) g/dL Amylase 79 (30-110) U/L Lipase 282 (23-300) U/L Urine Color Urine Appearance (Clear) Urine pH (5.0-8.0) Ur Specific [place] (1.001-1.035) Urine Protein (Negative) Urine Glucose (UA) (Negative) Urine Ketones (Negative) Urine Blood (Negative) Urine Nitrite (Negative) Urine Bilirubin (Negative) Urine Urobilinogen (<2.0) mg/dL Ur Leukocyte Esterase (Negative) Urine RBC (0-5) /hpf Urine WBC (0-5) /hpf Ur Squamous Epith Cells (0-4) /hpf Urine Bacteria (None) /hpf 08/30/17 Range/Units 18:10 WBC (3.8-10.6) k/uL RBC (3.80-5.40) m/uL Hgb (11.4-16.0) gm/dL Hct (34.0-46.0) % MCV (80.0-100.0) fL MCH (25.0-35.0) pg MCHC (31.0-37.0) g/dL RDW (11.5-15.5) % Plt Count (150-450) k/uL Neutrophils % % Lymphocytes % % Monocytes % % Eosinophils % % Basophils % % Neutrophils # (1.3-7.7) k/uL Lymphocytes # (1.0-4.8) k/uL Monocytes # (0-1.0) k/uL Eosinophils # (0-0.7) k/uL Basophils # (0-0.2) k/uL Sodium (137-145) mmol/L Potassium (3.5-5.1) mmol/L Chloride (98-107) mmol/L Carbon Dioxide (22-30) mmol/L Anion Gap mmol/L BUN (7-17) mg/dL Creatinine (0.52-1.04) mg/dL Est GFR (CKD-EPI)AfAm (>60 ml/min/1.73 sqM) Est GFR (CKD-EPI)NonAf (>60 ml/min/1.73 sqM) Glucose (74-99) mg/dL Plasma Lactic Acid Artie (0.7-2.0) mmol/L Calcium (8.4-10.2) mg/dL Total Bilirubin (0.2-1.3) mg/dL AST (14-36) U/L ALT (9-52) U/L Alkaline Phosphatase (38-126) U/L Total Protein (6.3-8.2) g/dL Albumin (3.5-5.0) g/dL Amylase (30-110) U/L Lipase (23-300) U/L Urine Color Light Yellow Urine Appearance Clear (Clear) Urine pH 6.0 (5.0-8.0) Ur Specific [place] 1.007 (1.001-1.035) Urine Protein Negative (Negative) Urine Glucose (UA) Negative (Negative) Urine Ketones Negative (Negative) Urine Blood Negative (Negative) Urine Nitrite Negative (Negative) Urine Bilirubin Negative (Negative) Urine Urobilinogen <2.0 (<2.0) mg/dL Ur Leukocyte Esterase Moderate H (Negative) Urine RBC <1 (0-5) /hpf Urine WBC 15 H (0-5) /hpf Ur Squamous Epith Cells 1 (0-4) /hpf Urine Bacteria Rare H (None) /hpf Disposition Clinical Impression: Urinary tract infection, Nausea & vomiting Disposition: HOME SELF-CARE Condition: Stable Instructions: Urinary Tract Infection in Women (ED) Additional Instructions: Please return to the Emergency Department if symptoms worsen or any other concerns. Prescriptions: Ciprofloxacin HCl [Cipro] 500 mg PO Q12HR #14 tablet Referrals: Jerry Golden DO [Primary Care Provider] - 1-2 days Time of Disposition: 18:56
[2017-08-30 16:39] LABS: Albumin 3.6 g/dL (3.5-5.0); Calcium 9.1 mg/dL (8.4-10.2); Potassium 3.8 mmol/L (3.5-5.1); Total Bilirubin 0.3 mg/dL (0.2-1.3); Total Protein 6.2 g/dL (6.3-8.2)
--- NOTE | 2017-08-30 16:49 | XR ---
EXAMINATION TYPE: XR KUB DATE OF EXAM: 08/30/2017 COMPARISON: 06/06/2017 HISTORY: Vomiting TECHNIQUE: 2 views FINDINGS: There is no sign of intestinal obstruction or pneumoperitoneum. Fecal pattern is normal. Grzegorz ng bases are clear of consolidation. There are coils apparently from hernia surgery. There is mild grzegorz mbar levoscoliosis. IMPRESSION: Nonacute abdomen. No change compared to old exam.
[2017-08-30] MEDS ORDERED: RX INFO: IV CONTRAST WAS GIVEN 1 EACH MISC MISCELLANE PRN (16:57)
--- NOTE | 2017-08-30 17:57 | CT ---
EXAMINATION TYPE: CT abdomen pelvis w con DATE OF EXAM: 08/30/2017 COMPARISON: 07/25/2017 HISTORY: Nausea and vomiting, tenderness around stoma. CT DLP: 556 mGycm Automated exposure control for dose reduction was used. TECHNIQUE: Helical acquisition of images was performed from the lung bases through the pelvis. CONTRAST: Performed without Oral Contrast and with IV Contrast, patient injected with 80 mL of Isovue M300. FINDINGS: Lung bases are clear of consolidation. There is no pericardial effusion. There is no pleural effusion . There is a small hiatal hernia. The liver spleen pancreas appear normal. Bile ducts are not dilated. There are clips from cholecystec claudia. There is no adrenal mass. Kidneys show satisfactory contrast opacification. There is no hydrone phrosis. There is no retroperitoneal adenopathy. There is a colostomy in the left mid abdomen. Bladde r distends smoothly. There are multiple surgical clips in the pelvis. I see no sign of a bowel obstru ction. There is no ascites. There is no sign of free air. There appears to be multiple diverticula in the right colon. There are spondylotic changes in the lumbar spine. There is bony spinal stenosis at L2-3. IMPRESSION: NO SIGN OF ACUTE ABDOMEN AND PELVIS. COLONIC DIVERTICULOSIS. MODERATE SPINAL STENOSIS AT L2-3. SMALL HIATAL HERNIA. NO ADVERSE CHANGE COMPARED TO OLD EXAM.
[2017-08-30 18:18] VITALS: BP 132/56; PULSE 83; RESP 20
[2017-08-30 18:29] LABS: Appearance,Urine Clear (Clear); Bacteria,Urine Rare /hpf; Bilirubin,Urine Negative (Negative); Blood,Urine Negative (Negative); Color,Urine Light Yellow; Glucose,Urine (UA) Negative (Negative); Ketones,Urine Negative (Negative); Leukocyte Esterase,Urine Moderate (Negative); Nitrite,Urine Negative (Negative); Protein,Urine Negative (Negative); RBC,Urine <1 /hpf (0-5); Specific Gravity,Urine 1.007 (1.001-1.035); Squamous Epithelial Cell,Urine 1 /hpf (0-4); Urobilinogen,Urine <2.0 mg/dL (<2.0); WBC,Urine 15 /hpf (0-5)
[2017-08-30] MEDS ORDERED: cefTRIAXone IN SWFI 1,000 MG/10 ML SYRINGE IVP STA (18:53)
== END 2017-08-30 19:05 | disposition home or self-care (01) ==
LOC: EC 15:22
DX: N39.0 Urinary tract infection, site not specified (principal); R11.2 Nausea with vomiting, unspecified; R10.31 Right lower quadrant pain; J45.909 Unspecified asthma, uncomplicated; K21.9 Gastro-esophageal reflux disease without esophagitis; F03.90 Unspecified dementia, unspecified severity, without behavioral disturbance, psychotic disturbance, mood disturbance, and anxiety; G47.30 Sleep apnea, unspecified; Z99.89 Dependence on other enabling machines and devices; F31.9 Bipolar disorder, unspecified; Z87.891 Personal history of nicotine dependence; Z79.899 Other long term (current) drug therapy; Z88.2 Allergy status to sulfonamides; Z88.5 Allergy status to narcotic agent; Z88.8 Allergy status to other drugs, medicaments and biological substances; Z90.49 Acquired absence of other specified parts of digestive tract; Z90.710 Acquired absence of both cervix and uterus
CPT/HCPCS: 36415; 80053; 82150; 83605; 83690; 85025; 81001; 74018; 74177; 99284; 96374; 96361; J2405; Q9967

== ENCOUNTER 2017-10-26 12:11 | Emergency (ER) | payer MEDICARE, OTHER ==
--- NOTE | 2017-10-26 12:52 | ED ---
General Adult HPI - General Chief complaint: Urogenital Stated complaint: POSS BLADDER INFECTION Time Seen by Provider: 10/26/17 12:22 Source: patient, RN notes reviewed Mode of arrival: ambulatory Limitations: altered mental status, physical limitation - History of Present Illness Initial comments: 67-year-old female presents to the emergency department for a chief complaint of possible bladder infection. Sr. states patient has been complaining of pain with urination. Patient admits to burning with urination. Patient denies any difficulty urinating. Patient's sister states she has had multiple UTIs in the past that present similar to this. Patient is also complaining of low back pain. Low back pain is chronic but patient's sister states that she complains of it more when she has a urinary tract infection. Patient denies any upper abdominal pain. Patient states she has a stoma. Bowel movements have been normal but there is slightly more gas in the stoma according to the sister. Patient denies any fevers of chills at home. Patient has no other complaints at this time including shortness of breath, chest pain, abdominal pain, nausea or vomiting, headache, or visual changes. - Related Data Home Medications Medication Instructions Recorded Confirmed Albuterol Sulfate [Proair Hfa] 2 puff INHALATION RT-QID PRN 06/24/14 08/30/17 Donepezil [Aricept] 10 mg PO DAILY 02/07/15 08/30/17 Loratadine 10 mg PO DAILY 06/28/16 08/30/17 Montelukast Sodium [Singulair] 10 mg PO DAILY 06/28/16 08/30/17 Omeprazole [PriLOSEC] 20 mg PO HS 06/28/16 08/30/17 Sertraline [Zoloft] 50 mg PO DAILY 11/22/16 08/30/17 traMADol HCL [Ultram] 50 mg PO BID PRN 06/06/17 08/30/17 Memantine HCl [Namenda Xr] 28 mg PO DAILY 06/12/17 08/30/17 Mirtazapine [Remeron] 7.5 mg PO HS 06/12/17 08/30/17 Potassium Chloride [Klor-Con 20] 20 meq PO DAILY 08/30/17 08/30/17 Previous Rx's Medication Instructions Recorded Ciprofloxacin HCl [Cipro] 500 mg PO Q12HR #14 tablet 08/30/17 Allergies Allergy/AdvReac Type Severity Reaction Status Date / Time codeine Allergy Rash/Hives Verified 10/26/17 12:18 lorazepam [From Ativan] Allergy Rash/Hives Verified 10/26/17 12:18 oxaprozin [From Daypro] Allergy Rash/Hives Verified 10/26/17 12:18 Sulfa (Sulfonamide Allergy Rash/Hives Verified 10/26/17 12:18 Antibiotics) baclofen AdvReac Unknown Psychotic Verified 10/26/17 12:18 Episode cyclobenzaprine HCl AdvReac Confusion Verified 10/26/17 12:18 [From Flexeril] Review of Systems ROS Statement: Those systems with pertinent positive or pertinent negative responses have been documented in the HPI. ROS Other: All systems not noted in ROS Statement are negative. Past Medical History Past Medical History: Asthma, Coronary Artery Disease (CAD), Heart Failure, Dementia, Diabetes Mellitus, GERD/Reflux, Hyperlipidemia, Myocardial Infarction ([place]), Neurologic Disorder, Osteoarthritis (OA), Pneumonia, Renal Disease, Seizure Disorder, Sleep Apnea/CPAP/BIPAP, Vascular Disorder Additional Past Medical History / Comment(s): Bronchial asthma, seizure disorder without medication, last seizure 1970s, does not use cpap, hx falls( past head injury /broken nose d/t fall), TMJ, chronic anemia, PVD, diverticulosis, cardiac murmur, hx pancreatitis, cataracts, early onset parkinsons, occassional abdominal pain, currently has ileostomy. Pneumonia one yr ago. Diet controlled diabetes. Last Myocardial Infarction Date:: 1991 History of Any Multi-Drug Resistant Organisms: None Reported Past Surgical History: Adenoidectomy, Appendectomy, Bowel Resection, Cholecystectomy, Hernia Repair, Hysterectomy, Joint Replacement, Orthopedic Surgery, Tonsillectomy Additional Past Surgical History / Comment(s): laparotomyX2, small bowel resection X2, lysis of adhesions, sigmoid colectomy w/ colostomy, Apr 2017 3rd bowel resection with ileostomy, (APPROX 10-12 YEARS AGO HAD partial colon resection with colostomy then reversal), SILVERIO KNEE ARTHROSCOPY, Right KNEE REPLACEMENT, EGDs and colonoscopies, lipomas off back, cyst off spine, eye duct surgery. Past Anesthesia/Blood Transfusion Reactions: Previous Problems w/ Anesthesia, Motion Sickness Additional Past Anesthesia/Blood Transfusion Reaction / Comment(s): DIFFICULTY WAKING UP. CLAUSTROPHOBIC Past Psychological History: Anxiety, Bipolar Smoking Status: Former smoker Past Alcohol Use History: None Reported Past Drug Use History: None Reported - Past Family History Father Family Medical History: Cancer Additional Family Medical History / Comment(s): lung cancer Mother Family Medical History: Congestive Heart Failure (CHF), Dementia, Myocardial Infarction (ND) General Exam Limitations: altered mental status, physical limitation General appearance: alert, in no apparent distress (sitting on edge of bed, pleasant and cooperative ) Neck exam: Present: normal inspection, full ROM. Absent: tenderness, meningismus, lymphadenopathy Respiratory exam: Present: normal lung sounds bilaterally. Absent: respiratory distress, wheezes, rales, rhonchi, stridor Cardiovascular Exam: Present: regular rate, normal rhythm, normal heart sounds. Absent: systolic murmur, diastolic murmur, rubs, gallop, clicks GI/Abdominal exam: Present: soft, tenderness (patient has moderate suprapubic tenderness and mild diffuse abdominal tenderness), normal bowel sounds, other ( ostomy present). Absent: distended, guarding, rebound, rigid Back exam: Present: CVA tenderness (L). Absent: CVA tenderness (R) Neurological exam: Present: alert, oriented X3 Psychiatric exam: Present: normal affect, normal mood Course Vital Signs 10/26/17 10/26/17 12:15 15:02 Temperature 98.0 F 97.8 F Pulse Rate 77 74 Respiratory 18 16 Rate Blood Pressure 129/66 139/70 O2 Sat by Pulse 99 99 Oximetry Medical Decision Making - Medical Decision Making 67 -year-old female presents to the emergency department for a chief complaint of burning with urination 2 days. Patient also has mild back pain. Patient admits to lower abdominal pain but denies diffuse abdominal pain. Patient has a history of multiple UTIs in the past. No fevers in the emergency department or at home. On exam patient has suprapubic tenderness as well as mild diffuse abdominal tenderness which patient states is normal. Patient has an ostomy. Bowel movements have been normal aside for some slight increased gas. No difficulty urinating. The rest of the exam was unremarkable. Patient's sister states she must be straight cathed for a urine because the patient will refuse to urinate in a cup. CBC and CMP are unremarkable. No white count. Urinalysis is clear and shows no sign of infection. CT shows a moderate hiatal hernia with nonspecific gastric pyloric thickening that may be related to peristalsis or gastritis. No diverticulitis. Patient will monitor herself at home. Patient has an appointment next week with her primary care provider. She will follow- up with them at this point. She will return to the emergency Department if she has any worsening symptoms which she is well aware of as well as her sister. - Lab Data Result diagrams: 10/26/17 13:00 10/26/17 13:00 Lab Results 10/26/17 10/26/17 10/26/17 Range/Units 13:00 13:00 13:07 WBC 7.5 (3.8-10.6) k/uL RBC 4.73 (3.80-5.40) m/uL Hgb 13.9 (11.4-16.0) gm/dL Hct 41.9 (34.0-46.0) % MCV 88.6 (80.0-100.0) fL MCH 29.3 (25.0-35.0) pg MCHC 33.1 (31.0-37.0) g/dL RDW 13.1 (11.5-15.5) % Plt Count 191 (150-450) k/uL Neutrophils % 74 % Lymphocytes % 18 % Monocytes % 4 % Eosinophils % 2 % Basophils % 1 % Neutrophils # 5.5 (1.3-7.7) k/uL Lymphocytes # 1.4 (1.0-4.8) k/uL Monocytes # 0.3 (0-1.0) k/uL Eosinophils # 0.2 (0-0.7) k/uL Basophils # 0.1 (0-0.2) k/uL Sodium 145 (137-145) mmol/L Potassium 3.7 (3.5-5.1) mmol/L Chloride 106 (98-107) mmol/L Carbon Dioxide 25 (22-30) mmol/L Anion Gap 14 mmol/L BUN 16 (7-17) mg/dL Creatinine 1.00 (0.52-1.04) mg/dL Est GFR (CKD-EPI)AfAm 68 (>60 ml/min/1.73 sqM) Est GFR (CKD-EPI)NonAf 59 (>60 ml/min/1.73 sqM) Glucose 126 H (74-99) mg/dL Calcium 9.3 (8.4-10.2) mg/dL Total Bilirubin 0.4 (0.2-1.3) mg/dL AST 25 (14-36) U/L ALT 28 (9-52) U/L Alkaline Phosphatase 137 H (38-126) U/L Total Protein 6.5 (6.3-8.2) g/dL Albumin 4.2 (3.5-5.0) g/dL Amylase 92 (30-110) U/L Lipase 238 (23-300) U/L Urine Color Yellow Urine Appearance Clear (Clear) Urine pH 5.5 (5.0-8.0) Ur Specific [place] 1.017 (1.001-1.035) Urine Protein Negative (Negative) Urine Glucose (UA) Negative (Negative) Urine Ketones Negative (Negative) Urine Blood Negative (Negative) Urine Nitrite Negative (Negative) Urine Bilirubin Negative (Negative) Urine Urobilinogen <2.0 (<2.0) mg/dL Ur Leukocyte Esterase Negative (Negative) Disposition Clinical Impression: Abdominal pain Disposition: HOME SELF-CARE Condition: Good Instructions: Abdominal Pain (ED) Additional Instructions: Please continue to take PPI for acid reflux. Follow up with primary care provider at your scheduled appointment. Return to the emergency department if symptoms worsen. Is patient prescribed a controlled substance at d/c from ED?: No Referrals: Jerry Golden DO [Primary Care Provider] - 1-2 days Time of Disposition: 14:48
[2017-10-26 13:09] LABS: Basophils # (A) 0.1 k/uL (0-0.2); Basophils % (A) 1 %; Eosinophils # (A) 0.2 k/uL (0-0.7); Eosinophils % (A) 2 %; HCT 41.9 % (34.0-46.0); HGB 13.9 gm/dL (11.4-16.0); Lymphocytes # (A) 1.4 k/uL (1.0-4.8); Lymphocytes % (A) 18 %; MCH 29.3 pg (25.0-35.0); MCHC 33.1 g/dL (31.0-37.0); MCV 88.6 fL (80.0-100.0); Mean Platelet Volume 6.8; Monocytes # (A) 0.3 k/uL (0-1.0); Monocytes % (A) 4 %; Neutrophils # (A) 5.5 k/uL (1.3-7.7); Neutrophils % (A) 74 %; Platelet Count 191 k/uL (150-450); RBC 4.73 m/uL (3.80-5.40); RDW 13.1 % (11.5-15.5); WBC 7.5 k/uL (3.8-10.6)
[2017-10-26 13:15] LABS: Appearance,Urine Clear (Clear); Bilirubin,Urine Negative (Negative); Blood,Urine Negative (Negative); Color,Urine Yellow; Glucose,Urine (UA) Negative (Negative); Ketones,Urine Negative (Negative); Leukocyte Esterase,Urine Negative (Negative); Nitrite,Urine Negative (Negative); PH, Urine 5.5 (5.0-8.0); Protein,Urine Negative (Negative); Specific Gravity,Urine 1.017 (1.001-1.035); Urobilinogen,Urine <2.0 mg/dL (<2.0)
[2017-10-26 13:22] LABS: Albumin 4.2 g/dL (3.5-5.0); Calcium 9.3 mg/dL (8.4-10.2); Potassium 3.7 mmol/L (3.5-5.1); Total Bilirubin 0.4 mg/dL (0.2-1.3); Total Protein 6.5 g/dL (6.3-8.2)
[2017-10-26] MEDS ORDERED: RX INFO: IV CONTRAST WAS GIVEN 1 EACH MISC MISCELLANE PRN (13:35)
--- NOTE | 2017-10-26 14:26 | CT ---
EXAMINATION TYPE: CT abdomen pelvis w con DATE OF EXAM: 10/26/2017 HISTORY: generalized abd pain, back pain CT DLP: 423.9mGycm Automated Exposure Control for Dose Reduction was Utilized. CONTRAST: CT scan of the abdomen and pelvis is performed with IV Contrast, patient injected with 100 mL of Isov ue 300. COMPARISON: None. FINDINGS: LUNG BASES: There is a moderate hiatal hernia and bibasilar subsegmental atelectasis. LIVER/GB: No significant abnormality is appreciated. Gallbladder is surgically absent and there is po stsurgical dilatation of the extrahepatic biliary system related PANCREAS: No significant abnormality is seen. No ductal dilatation SPLEEN: No significant abnormality is seen. ADRENALS: No nodularity or thickening. KIDNEYS: Kidneys enhance symmetrically and excrete symmetrically without hydronephrosis. BOWEL: There is a left-sided colostomy and postsurgical changes of a ventral hernia repair with numer ous bowel anastomotic site. No dilatation is seen proximal to these anastomotic sites to suggest anas tomotic stricture or bowel obstruction. Pancolonic diverticulosis is present without pericolonic fat stranding to suggest diverticulitis. Partial colectomy has been performed. Focal thickening of the ga stric antrum may relate to peristalsis or gastritis. No evidence of current perforated peptic ulcer d isease. UTERUS/ADNEXA: Uterus is either surgically absent or significantly atrophy. LYMPH NODES: No greater than 1cm abdominal or pelvic lymph nodes are appreciated. OSSEOUS STRUCTURES: Nonspecific sclerotic foci are seen within the pelvis. Osseous structures are zeyad ssly intact. Moderate multilevel degenerative changes of the spine are present. Again there is mild s ella canal stenosis at L2-L3. OTHER: Mild atherosclerosis of the abdominal aorta and its branches are seen area IMPRESSION: 1. Nonspecific gastric pyloric circumferential thickening that may relate to peristalsis or gastritis . 2. No evidence of hydronephrosis in this patient with back pain. Mild spinal canal stenosis is unchan ged at L2-L3 from the prior exam. 3. Moderate hiatal hernia. 4. Diverticulosis without evidence of diverticulitis and postsurgical changes of the bowel.
[2017-10-26 15:03] VITALS: BP 139/70; PULSE 74; RESP 16; TEMP 97.8
== END 2017-10-26 15:02 | disposition home or self-care (01) ==
LOC: EC 12:11
DX: R10.84 Generalized abdominal pain (principal); M54.5 Low back pain; R30.9 Painful micturition, unspecified; J45.909 Unspecified asthma, uncomplicated; I25.10 Atherosclerotic heart disease of native coronary artery without angina pectoris; I50.9 Heart failure, unspecified; F03.90 Unspecified dementia, unspecified severity, without behavioral disturbance, psychotic disturbance, mood disturbance, and anxiety; E11.9 Type 2 diabetes mellitus without complications; K21.9 Gastro-esophageal reflux disease without esophagitis; M19.90 Unspecified osteoarthritis, unspecified site; E78.5 Hyperlipidemia, unspecified; I25.2 Old myocardial infarction; F31.9 Bipolar disorder, unspecified; F41.9 Anxiety disorder, unspecified; Z87.891 Personal history of nicotine dependence; Z90.49 Acquired absence of other specified parts of digestive tract; Z96.651 Presence of right artificial knee joint; Z79.899 Other long term (current) drug therapy; Z88.5 Allergy status to narcotic agent; Z88.2 Allergy status to sulfonamides; Z88.8 Allergy status to other drugs, medicaments and biological substances
CPT/HCPCS: 36415; 80053; 82150; 83690; 85025; 81003; 87040; 74177; 99284; Q9967

== ENCOUNTER 2017-12-25 14:30 | Emergency (ER) | payer MEDICARE, OTHER ==
[2017-12-25 14:41] VITALS: TEMP 98.1
--- NOTE | 2017-12-25 16:42 | ED ---
Fall HPI <Mulugeta Germain - Last Filed: 12/25/17 17:50> - General Source: family, RN notes reviewed, old records reviewed Mode of arrival: wheelchair <Amina Sepulveda - Last Filed: 12/25/17 18:15> - General Chief Complaint: Fall Stated Complaint: fell/hit head Time Seen by Provider: 12/25/17 15:49 - History of Present Illness Initial Comments: 67-year-old female presents emergency department today chief complaint of fall. Patient reports that she was leaving the hospital to see her sister and tripped while in the elevator. Patient reports that she fell on her right knee as well as hit her head. No significant loss of conscious. Does complain of a mild headache and neck pain. She also reports pain over the right knee. Patient states that she's had no fevers or chills, nausea or vomiting. She also complains that she's been having some chronic abdominal pain for the past few months. She does have a colostomy bag. Patient has had normal output from her ostomy. No vomiting.Patient denies any recent fever, chills, shortness of breath, chest pain, back pain, abdominal pain, nausea vomiting, numbness or tingling, dysuria or hematuria, constipation or diarrhea, headaches or visual changes, or any other current symptoms (Amina Sepulveda) - Related Data Home Medications Medication Instructions Recorded Confirmed Loratadine 10 mg PO DAILY 06/28/16 12/25/17 Sertraline [Zoloft] 50 mg PO DAILY 11/22/16 12/25/17 Memantine HCl [Namenda Xr] 28 mg PO DAILY 06/12/17 12/25/17 Mirtazapine [Remeron] 7.5 mg PO HS 06/12/17 12/25/17 Ibuprofen [Motrin] 800 mg PO Q6H PRN 12/25/17 12/25/17 Potassium Chloride Oral Liquid 20 meq PO HS 12/25/17 12/25/17 Previous Rx's Medication Instructions Recorded Acetaminophen Tab [Tylenol Tab] 650 mg PO Q4H #20 tablet 12/25/17 Ibuprofen 800 mg PO TID #20 tablet 12/25/17 Allergies Allergy/AdvReac Type Severity Reaction Status Date / Time codeine Allergy Rash/Hives Verified 12/25/17 16:15 lorazepam [From Ativan] Allergy Rash/Hives Verified 12/25/17 16:15 oxaprozin [From Daypro] Allergy Rash/Hives Verified 12/25/17 16:15 Sulfa (Sulfonamide Allergy Rash/Hives Verified 12/25/17 16:15 Antibiotics) baclofen AdvReac Unknown Psychotic Verified 12/25/17 16:15 Episode cyclobenzaprine HCl AdvReac Confusion Verified 12/25/17 16:15 [From Flexeril] Review of Systems ROS Other: All systems not noted in ROS Statement are negative. <Mulugeta Germain - Last Filed: 12/25/17 17:50> ROS Other: All systems not noted in ROS Statement are negative. <Amina Sepulveda - Last Filed: 12/25/17 18:15> ROS Statement: Those systems with pertinent positive or pertinent negative responses have been documented in the HPI. Past Medical History Past Medical History: Asthma, Coronary Artery Disease (CAD), Heart Failure, Dementia, Diabetes Mellitus, GERD/Reflux, Hyperlipidemia, Myocardial Infarction ([place]), Neurologic Disorder, Osteoarthritis (OA), Pneumonia, Renal Disease, Seizure Disorder, Sleep Apnea/CPAP/BIPAP, Vascular Disorder Additional Past Medical History / Comment(s): Bronchial asthma, seizure disorder without medication, last seizure 1970s, does not use cpap, hx falls( past head injury /broken nose d/t fall), TMJ, chronic anemia, PVD, diverticulosis, cardiac murmur, hx pancreatitis, cataracts, early onset parkinsons, occassional abdominal pain, currently has ileostomy. Pneumonia one yr ago. Diet controlled diabetes. Last Myocardial Infarction Date:: 1991 History of Any Multi-Drug Resistant Organisms: None Reported Past Surgical History: Adenoidectomy, Appendectomy, Bowel Resection, Cholecystectomy, Hernia Repair, Hysterectomy, Joint Replacement, Orthopedic Surgery, Tonsillectomy Additional Past Surgical History / Comment(s): laparotomyX2, small bowel resection X2, lysis of adhesions, sigmoid colectomy w/ colostomy, Apr 2017 3rd bowel resection with ileostomy, (APPROX 10-12 YEARS AGO HAD partial colon resection with colostomy then reversal), SILVERIO KNEE ARTHROSCOPY, Right KNEE REPLACEMENT, EGDs and colonoscopies, lipomas off back, cyst off spine, eye duct surgery. Past Anesthesia/Blood Transfusion Reactions: Previous Problems w/ Anesthesia, Motion Sickness Additional Past Anesthesia/Blood Transfusion Reaction / Comment(s): DIFFICULTY WAKING UP. CLAUSTROPHOBIC Past Psychological History: Anxiety, Bipolar Smoking Status: Former smoker Past Alcohol Use History: None Reported Past Drug Use History: None Reported - Past Family History Father Family Medical History: Cancer Additional Family Medical History / Comment(s): lung cancer Mother Family Medical History: Congestive Heart Failure (CHF), Dementia, Myocardial Infarction ([place]) <Amina Sepulveda - Last Filed: 12/25/17 18:15> General Exam <Mulugeta Germain - Last Filed: 12/25/17 17:50> Limitations: physical limitation General appearance: alert, in no apparent distress Head exam: Present: atraumatic, normocephalic, normal inspection Eye exam: Present: normal appearance, PERRL, EOMI. Absent: scleral icterus, conjunctival injection, periorbital swelling ENT exam: Present: normal exam, mucous membranes moist Neck exam: Present: normal inspection. Absent: tenderness, meningismus, lymphadenopathy Respiratory exam: Present: normal lung sounds bilaterally. Absent: respiratory distress, wheezes, rales, rhonchi, stridor Cardiovascular Exam: Present: regular rate, normal rhythm, normal heart sounds. Absent: systolic murmur, diastolic murmur, rubs, gallop, clicks GI/Abdominal exam: Present: soft, normal bowel sounds. Absent: distended, tenderness, guarding, rebound, rigid Extremities exam: Present: normal inspection, full ROM, normal capillary refill. Absent: tenderness, pedal edema, joint swelling, calf tenderness Right Knee exam: Present: full ROM, ecchymosis, erythema ( has some ecchymosis over the patella.). Absent: normal inspection Lower Leg exam: Present: normal inspection, full ROM Ankle exam: Present: normal inspection, full ROM Neurovascular tendon exam: Present: no vascular compromise Gait: observed and normal Back exam: Present: normal inspection, full ROM Neurological exam: Present: alert, oriented X3, CN II-XII intact Psychiatric exam: Present: normal affect, normal mood Skin exam: Present: warm, dry, intact, normal color. Absent: rash <Amina Sepulveda - Last Filed: 12/25/17 18:15> - General Exam Comments Initial Comments: Patient is a 67-year-old female. Alert and oriented. No significant distress. (Amina Sepulveda) Course <Mulugeta Germain - Last Filed: 12/25/17 17:50> <Amina Sepulveda - Last Filed: 12/25/17 18:15> Vital Signs 12/25/17 12/25/17 14:38 17:04 Temperature 98.1 F Pulse Rate 86 70 Respiratory 20 18 Rate Blood Pressure 114/74 135/65 O2 Sat by Pulse 96 99 Oximetry - Reevaluation(s) Reevaluation #1: 12/25/17 17:50 PA/and P supervision: I personally saw and examined the patient a review and agree with the PAs/ORTHOPEDIC NURSE findings including all diagnostic interpretations and treatment plans is written less otherwise stated (Mulugeta Germain) Medical Decision Making <Mulugeta Germain - Last Filed: 12/25/17 17:50> - Radiology Data Radiology results: report reviewed <CocoAmina - Last Filed: 12/25/17 18:15> - Medical Decision Making Physical [id number] female presents emergency Department after a fall. She tripped over she isn't getting off the elevator. She complains of some right knee pain. She is ALLERGIC to motion. Mild ecchymosis over the knee. Normal sensation and pulses distally. Patient is neurologically intact. She does have history of cognitive impairment. Patient is at her baseline. She is not on blood thinners. CT brain and C-spine was negative for any acute process. Right knee x-ray was completed as well as KUB does. Right knee x-ray does question of possibility of a 0 plateau fracture. However Patient is able to handle without difficulty. I discussed we'll put her in a knee immobilizer and she can follow-up with [facility]. She has seen Dr. Renetta Smyth in the past. KUB shows nonobstructive bowel gas pattern. I discussed PCP follow-up and return parameters were discussed. (Amina Sepulveda) - Radiology Data Limitations due to radiographic technique subtle lucency along the medial tibial plateau that could be projectional. Significant pain for concern for displaced fracture CT can be considered. Mild to moderate ventriculomegaly due to central circular regan.. Slightly increased from 04/07/2017. Correlate for component of NPH. Otherwise no acute intracranial abnormality. No acute abnormality of the cervical spine. Moderate spondylytic changes from mid to lower cervical spine. No evidence of any acute process in the abdomen exam. ( Amina Sepulveda) Disposition <Mulugeta Germain - Last Filed: 12/25/17 17:50> Is patient prescribed a controlled substance at d/c from ED?: No When asked, does pt state using other controlled substances?: No If prescribed controlled substance>3 days was MAPS reviewed?: No If opioid is for acute pain is fill amount 7 days or less?: No If Rx opioid, was Start Talking consent form obtained?: No Time of Disposition: 17:41 <Amina Sepulveda - Last Filed: 12/25/17 18:15> Clinical Impression: Fall, Knee contusion, Head injury Disposition: HOME SELF-CARE Condition: Good Instructions: Fall Prevention for Older Adults (ED) Additional Instructions: Patient advised to follow-up with primary care physician and ortho. Wear the knee brace. Return to the emergency department if any alarming signs or symptoms occur. Prescriptions: Acetaminophen Tab [Tylenol Tab] 650 mg PO Q4H #20 tablet Ibuprofen 800 mg PO TID #20 tablet Referrals: Jerry Golden DO [Primary Care Provider] - 1-2 days Jay Palma MD [STAFF PHYSICIAN] - 1-2 days
--- NOTE | 2017-12-25 16:50 | CT ---
EXAMINATION TYPE: CT brain cspine wo con DATE OF EXAM: 12/25/2017 COMPARISON: Brain 04/07/2017 HISTORY: 67-year-old female Fall with head injury CT DLP: 1330.6 mGycm Automated exposure control for dose reduction was used. Technique: Examination of the head was done in axial plane without intravenous contrast. Coronal and sagittal reconstructions performed. CT of the cervical spine was obtained in axial plane without intravenous injection of contrast mater ial. Coronal and sagittal reformatted images were obtained from the axial views for evaluation of f ractures, spinal alignment and canal. FINDINGS: Head: There is no evidence of acute intracranial hemorrhage, acute ischemic changes, mass, mass-effect, or extra-axial fluid collection. There is no effacement of cerebral sulci or basal subarachnoid cister ns. There is no midline shift. Hernandez-white matter distinction is preserved. Normal variation with hyperostosis frontalis interna. There is hydrocephalus with evidence of ratio o f 0.40 versus 0.35, previously. Patchy white matter hypodensities in the periventricular regions. Paranasal sinuses and mastoid air cells well pneumatized. Orbits and globes are intact. Cervical spine: No craniocervical junction abnormality, predental space widening, or prevertebral soft tissue swellin g. Draining of the normal cervical lordosis. Moderate disc/endplate degenerative change from C4 through C7 levels with disc osteophyte complex for mation. This causes at least moderate spinal canal stenosis at C4-C5. Scattered facet and uncovertebral joint arthropathy mid to lower cervical spine. Moderate right neural foraminal stenosis at C4-C5 and on the left at C5-C6 also on the left at C6-C7. Mild on both sides at C7-T1. The sagittal and coronal reformatted images confirm above findings. COMBINED IMPRESSION: 1. Mild to moderate ventriculomegaly likely due to central cerebral atrophy. This appears slightly in creased from 04/07/2017. Correlate for possible component of NPH. Otherwise, no acute intracranial abn ormality seen. 2. No acute fracture or malalignment of the cervical spine. Moderate spondylotic change mid to lower cervical spine.
[2017-12-25 17:07] VITALS: BP 135/65; PULSE 70; RESP 18
--- NOTE | 2017-12-25 17:24 | XR ---
EXAMINATION TYPE: XR knee complete RT DATE OF EXAM: 12/25/2017 COMPARISON: NONE HISTORY: 67-year-old female with pain after fall one day ago TECHNIQUE: 3 views FINDINGS: There is subtle lucency seen along the articular surface of the medial tibial plateau only on the fro ntal view. This may be projectional artifact. Limitation in assessment due to radiographic technique. There may be some swelling in the infrapatellar, Hoffa's fat region. Extensor mechanism appears inta ct. IMPRESSION: Limitations due to radiographic technique. There is subtle lucency seen along the medial tibial plate au that could be projectional. If there is significant pain or concern for nondisplaced fracture, CT can be considered.
--- NOTE | 2017-12-25 17:27 | XR ---
EXAMINATION TYPE: XR abdominal pelvic examination - 3 views DATE OF EXAM: 12/25/2017 COMPARISON: NONE HISTORY: Pain. Bowel resection, colostomy, patient fell one day ago TECHNIQUE: Upright upper abdominal view, supine abdominal pelvic view, left lateral decubitus abdomin al pelvic FINDINGS: There is no pneumoperitoneum or pneumatosis. The bowel gas pattern is normal. Sitz markers are noted, distributed evenly throughout the expected course of the colon, from the expected position of the cecum to the expected position of the rectosigmoid junction. Visualized lung bases and pleural spaces are not well seen but are unremarkable as seen. There is no fracture or malalignment evident. No focal bone abnormalities. No incidental soft tissue findings. IMPRESSION: NO ACUTE PROCESS.
[2017-12-25] MEDS ORDERED: ACETAMINOPHEN TAB 500 MG TAB PO STA (17:40)
[2017-12-25] MEDS ORDERED: IBUPROFEN 600 MG TAB PO STA (17:40)
== END 2017-12-25 18:15 | disposition home or self-care (01) ==
LOC: EC 14:30
DX: S80.01XA Contusion of right knee, initial encounter (principal); S09.90XA Unspecified injury of head, initial encounter; M54.2 Cervicalgia; F31.9 Bipolar disorder, unspecified; F41.9 Anxiety disorder, unspecified; G20 Parkinson's disease; F02.80 Dementia in other diseases classified elsewhere, unspecified severity, without behavioral disturbance, psychotic disturbance, mood disturbance, and anxiety; Z88.2 Allergy status to sulfonamides; Z88.5 Allergy status to narcotic agent; Z88.8 Allergy status to other drugs, medicaments and biological substances; Z88.6 Allergy status to analgesic agent; Z79.899 Other long term (current) drug therapy; Z87.891 Personal history of nicotine dependence; W01.10XA Fall on same level from slipping, tripping and stumbling with subsequent striking against unspecified object, initial encounter; Y92.89 Other specified places as the place of occurrence of the external cause
CPT/HCPCS: 99284; 73562; 74018; 72125; 70450; L1830

== ENCOUNTER 2018-01-16 18:29 | Inpatient (IN) | payer MEDICARE, OTHER ==
[2018-01-16] MEDS ORDERED: SODIUM CHLORIDE 0.9% 1,000 ML IV STA ×2 (19:00)
--- NOTE | 2018-01-16 19:03 | ED ---
Altered Mental Status HPI - General Chief Complaint: Altered Mental Status Stated Complaint: altered mental status Time Seen by Provider: 01/16/18 18:43 Source: patient, RN notes reviewed Mode of arrival: ambulatory Limitations: no limitations - History of Present Illness Initial Comments: This is a 67-year-old female history of a colostomy who was brought in by family members after having decreased level of consciousness and confusion over the past several days at least. She is also violent with family members apparently. They do suspect a UTI she's had some hematuria reported. No trauma patient herself states she's been eating and drinking. No other complaints at this time MD Complaint: altered mental status, confusion - Related Data Home Medications Medication Instructions Recorded Confirmed Loratadine 10 mg PO DAILY 06/28/16 01/16/18 Sertraline [Zoloft] 50 mg PO DAILY 11/22/16 01/16/18 Mirtazapine [Remeron] 7.5 mg PO HS 06/12/17 01/16/18 Potassium Chloride Oral Liquid 20 meq PO HS 12/25/17 01/16/18 Acetaminophen Tab [Tylenol Tab] 650 mg PO Q4H PRN 01/16/18 01/16/18 Albuterol Nebulized [Ventolin 2.5 mg INHALATION RT-DAILY PRN 01/16/18 01/16/18 Nebulized] Albuterol Sulfate [Proair Hfa] 1 - 2 puff INHALATION Q6HR PRN 01/16/18 01/16/18 Donepezil HCl [Aricept] 10 mg PO DAILY 01/16/18 01/16/18 Allergies Allergy/AdvReac Type Severity Reaction Status Date / Time codeine Allergy Rash/Hives Verified 01/16/18 19:30 lorazepam [From Ativan] Allergy Rash/Hives Verified 01/16/18 19:30 oxaprozin [From Daypro] Allergy Rash/Hives Verified 01/16/18 19:30 Sulfa (Sulfonamide Allergy Rash/Hives Verified 01/16/18 19:30 Antibiotics) baclofen AdvReac Unknown Psychotic Verified 01/16/18 19:30 Episode cyclobenzaprine HCl AdvReac Confusion Verified 01/16/18 19:30 [From Flexeril] Review of Systems ROS Statement: Those systems with pertinent positive or pertinent negative responses have been documented in the HPI. ROS Other: All systems not noted in ROS Statement are negative. Past Medical History Past Medical History: Asthma, Coronary Artery Disease (CAD), Heart Failure, Dementia, Diabetes Mellitus, GERD/Reflux, Hyperlipidemia, Myocardial Infarction ([place]), Neurologic Disorder, Osteoarthritis ([place]), Pneumonia, Renal Disease, Seizure Disorder, Sleep Apnea/CPAP/BIPAP, Vascular Disorder Additional Past Medical History / Comment(s): Bronchial asthma, seizure disorder without medication, last seizure 1970s, does not use cpap, hx falls( past head injury /broken nose d/t fall), TMJ, chronic anemia, PVD, diverticulosis, cardiac murmur, hx pancreatitis, cataracts, early onset parkinsons, occassional abdominal pain, currently has ileostomy. Pneumonia one yr ago. Diet controlled diabetes. Last Myocardial Infarction Date:: 1991 History of Any Multi-Drug Resistant Organisms: None Reported Past Surgical History: Adenoidectomy, Appendectomy, Bowel Resection, Cholecystectomy, Hernia Repair, Hysterectomy, Joint Replacement, Orthopedic Surgery, Tonsillectomy Additional Past Surgical History / Comment(s): laparotomyX2, small bowel resection X2, lysis of adhesions, sigmoid colectomy w/ colostomy, Apr 2017 3rd bowel resection with ileostomy, (APPROX 10-12 YEARS AGO HAD partial colon resection with colostomy then reversal), SILVERIO KNEE ARTHROSCOPY, Right KNEE REPLACEMENT, EGDs and colonoscopies, lipomas off back, cyst off spine, eye duct surgery. Past Anesthesia/Blood Transfusion Reactions: Previous Problems w/ Anesthesia, Motion Sickness Additional Past Anesthesia/Blood Transfusion Reaction / Comment(s): DIFFICULTY WAKING UP. CLAUSTROPHOBIC Past Psychological History: Anxiety, Bipolar Smoking Status: Former smoker Past Alcohol Use History: None Reported Past Drug Use History: None Reported - Past Family History Father Family Medical History: Cancer Additional Family Medical History / Comment(s): lung cancer Mother Family Medical History: Congestive Heart Failure ([place]F), Dementia, Myocardial Infarction ([place]) General Exam - General Exam Comments Initial Comments: This a well-developed well-nourished awake alert but lethargic female Limitations: no limitations General appearance: alert, in no apparent distress, lethargic Head exam: Present: atraumatic, normocephalic, normal inspection Eye exam: Present: normal appearance, PERRL, EOMI. Absent: scleral icterus, conjunctival injection, periorbital swelling ENT exam: Present: mucous membranes dry Neck exam: Present: normal inspection. Absent: tenderness, meningismus, lymphadenopathy Respiratory exam: Present: decreased breath sounds. Absent: respiratory distress, wheezes, rales, rhonchi, stridor Cardiovascular Exam: Present: regular rate, normal rhythm, normal heart sounds. Absent: systolic murmur, diastolic murmur, rubs, gallop, clicks GI/Abdominal exam: Present: soft, normal bowel sounds, other (Colostomy present) . Absent: distended, tenderness, guarding, rebound, rigid Extremities exam: Present: normal inspection, full ROM, normal capillary refill. Absent: tenderness, pedal edema, joint swelling, calf tenderness Back exam: Present: normal inspection Neurological exam: Present: alert, oriented X3, CN II-XII intact Psychiatric exam: Present: normal affect, normal mood Skin exam: Present: warm, dry, intact, normal color. Absent: rash Course Vital Signs 01/16/18 01/16/18 01/16/18 18:32 19:09 20:59 Temperature 98.8 F Pulse Rate 71 62 57 L Respiratory 18 18 18 Rate Blood Pressure 118/64 105/57 163/83 O2 Sat by Pulse 98 97 100 Oximetry - Reevaluation(s) Reevaluation #1: 01/16/18 22:16 I did discuss findings with Dr. Cash patient does have a history of bipolar disorder and dementia patient will be admitted with consultation by psychiatry. Medical Decision Making - Medical Decision Making I did reevaluate patient several occasions she seems stable but no new findings. Per family member she does not seem to be improved at all. The patient will be admitted with psychiatric consultation IV hydration. - Lab Data Result diagrams: 01/16/18 18:55 01/16/18 18:55 Lab Results 01/16/18 01/16/18 01/16/18 Range/Units 18:55 18:55 18:55 WBC 8.4 (3.8-10.6) k/uL RBC 4.56 (3.80-5.40) m/uL Hgb 13.2 (11.4-16.0) gm/dL Hct 39.2 (34.0-46.0) % MCV 85.9 (80.0-100.0) fL MCH 28.9 (25.0-35.0) pg MCHC 33.7 (31.0-37.0) g/dL RDW 12.8 (11.5-15.5) % Plt Count 199 (150-450) k/uL Neutrophils % 71 % Lymphocytes % 18 % Monocytes % 6 % Eosinophils % 3 % Basophils % 1 % Neutrophils # 6.0 (1.3-7.7) k/uL Lymphocytes # 1.5 (1.0-4.8) k/uL Monocytes # 0.5 (0-1.0) k/uL Eosinophils # 0.3 (0-0.7) k/uL Basophils # 0.1 (0-0.2) k/uL Sodium (137-145) mmol/L Potassium (3.5-5.1) mmol/L Chloride (98-107) mmol/L Carbon Dioxide (22-30) mmol/L Anion Gap mmol/L BUN (7-17) mg/dL Creatinine (0.52-1.04) mg/dL Est GFR (CKD-EPI)AfAm (>60 ml/min/1.73 sqM) Est GFR (CKD-EPI)NonAf (>60 ml/min/1.73 sqM) Glucose (74-99) mg/dL Plasma Lactic Acid Artie (0.7-2.0) mmol/L Calcium (8.4-10.2) mg/dL Magnesium (1.6-2.3) mg/dL Total Bilirubin (0.2-1.3) mg/dL AST (14-36) U/L ALT (9-52) U/L Alkaline Phosphatase (38-126) U/L Ammonia 27 (<30) umol/L Total Creatine Kinase 26 L (30-135) U/L CK-MB (CK-2) 0.4 (0.0-2.4) ng/mL CK-MB (CK-2) Rel Index 1.5 Troponin I <0.012 (0.000-0.034) ng/mL Total Protein (6.3-8.2) g/dL Albumin (3.5-5.0) g/dL Urine Color Urine Appearance (Clear) Urine pH (5.0-8.0) Ur Specific [place] (1.001-1.035) Urine Protein (Negative) Urine Glucose (UA) (Negative) Urine Ketones (Negative) Urine Blood (Negative) Urine Nitrite (Negative) Urine Bilirubin (Negative) Urine Urobilinogen (<2.0) mg/dL Ur Leukocyte Esterase (Negative) 01/16/18 01/16/18 01/16/18 Range/Units 18:55 18:55 19:58 WBC (3.8-10.6) k/uL RBC (3.80-5.40) m/uL Hgb (11.4-16.0) gm/dL Hct (34.0-46.0) % MCV (80.0-100.0) fL MCH (25.0-35.0) pg MCHC (31.0-37.0) g/dL RDW (11.5-15.5) % Plt Count (150-450) k/uL Neutrophils % % Lymphocytes % % Monocytes % % Eosinophils % % Basophils % % Neutrophils # (1.3-7.7) k/uL Lymphocytes # (1.0-4.8) k/uL Monocytes # (0-1.0) k/uL Eosinophils # (0-0.7) k/uL Basophils # (0-0.2) k/uL Sodium 140 (137-145) mmol/L Potassium 4.5 (3.5-5.1) mmol/L Chloride 109 H (98-107) mmol/L Carbon Dioxide 24 (22-30) mmol/L Anion Gap 7 mmol/L BUN 21 H (7-17) mg/dL Creatinine 1.10 H (0.52-1.04) mg/dL Est GFR (CKD-EPI)AfAm 60 (>60 ml/min/1.73 sqM) Est GFR (CKD-EPI)NonAf 52 (>60 ml/min/1.73 sqM) Glucose 113 H (74-99) mg/dL Plasma Lactic Acid Artie 1.1 (0.7-2.0) mmol/L Calcium 9.2 (8.4-10.2) mg/dL Magnesium 1.9 (1.6-2.3) mg/dL Total Bilirubin 0.5 (0.2-1.3) mg/dL AST 28 (14-36) U/L ALT 25 (9-52) U/L Alkaline Phosphatase 94 (38-126) U/L Ammonia (<30) umol/L Total Creatine Kinase (30-135) U/L CK-MB (CK-2) (0.0-2.4) ng/mL CK-MB (CK-2) Rel Index Troponin I (0.000-0.034) ng/mL Total Protein 6.5 (6.3-8.2) g/dL Albumin 3.7 (3.5-5.0) g/dL Urine Color Yellow Urine Appearance Clear (Clear) Urine pH 5.5 (5.0-8.0) Ur Specific [place] 1.020 (1.001-1.035) Urine Protein Trace H (Negative) Urine Glucose (UA) Negative (Negative) Urine Ketones Negative (Negative) Urine Blood Negative (Negative) Urine Nitrite Negative (Negative) Urine Bilirubin Negative (Negative) Urine Urobilinogen <2.0 (<2.0) mg/dL Ur Leukocyte Esterase Negative (Negative) - EKG Data -: EKG Interpreted by Tn EKG shows normal: sinus rhythm (Sinus rhythm with sinus arrhythmia rate was 64. Ago 170 QRS duration 60 QT since QTC ) - Radiology Data Radiology results: report reviewed (I did review the imaging and report no acute findings.), image reviewed Disposition Clinical Impression: Delirium due to general medical condition, Dementia, Dehydration Disposition: ADMITTED IP TO THIS [facility] Condition: Stable Referrals: Jerry Golden DO [Primary Care Provider] - 1-2 days
[2018-01-16 19:20] LABS: Basophils # (A) 0.1 k/uL (0-0.2); Basophils % (A) 1 %; Eosinophils # (A) 0.3 k/uL (0-0.7); Eosinophils % (A) 3 %; HCT 39.2 % (34.0-46.0); HGB 13.2 gm/dL (11.4-16.0); Lymphocytes # (A) 1.5 k/uL (1.0-4.8); Lymphocytes % (A) 18 %; MCH 28.9 pg (25.0-35.0); MCHC 33.7 g/dL (31.0-37.0); MCV 85.9 fL (80.0-100.0); Mean Platelet Volume 6.7; Monocytes # (A) 0.5 k/uL (0-1.0); Monocytes % (A) 6 %; Neutrophils % (A) 71 %; Platelet Count 199 k/uL (150-450); RBC 4.56 m/uL (3.80-5.40); RDW 12.8 % (11.5-15.5); WBC 8.4 k/uL (3.8-10.6)
[2018-01-16 19:31] LABS: Albumin 3.7 g/dL (3.5-5.0); Calcium 9.2 mg/dL (8.4-10.2); Magnesium 1.9 mg/dL (1.6-2.3); Total Bilirubin 0.5 mg/dL (0.2-1.3); Total Protein 6.5 g/dL (6.3-8.2)
[2018-01-16 19:38] LABS: Potassium 4.5 mmol/L (3.5-5.1)
[2018-01-16 19:40] LABS: Creatine Kinase 26 U/L (30-135)
--- NOTE | 2018-01-16 19:41 | XR ---
EXAMINATION TYPE: XR chest 2V DATE OF EXAM: 01/16/2018 COMPARISON: 04/07/2017 HISTORY: Altered mental status TECHNIQUE: Frontal and lateral views of the chest are obtained. FINDINGS: Heart is normal. Lungs are clear of consolidation. There is no pleural effusion. There are chest leads. The bony thorax is intact. IMPRESSION: No active cardiopulmonary disease. Normal heart. No change.
--- NOTE | 2018-01-16 19:44 | CT ---
EXAMINATION TYPE: CT brain wo con DATE OF EXAM: 01/16/2018 COMPARISON: 12/25/2017 HISTORY: Headache and decreased mental status today CT DLP: 1036 mGycm Automated exposure control for dose reduction was used. FINDINGS: There is some cerebral cortical atrophy. There is no mass effect nor midline shift. There is no sign of intracranial hemorrhage. The calvarium is intact. There is debris at the right external auditory c anal. There is enlargement of the ventricles. IMPRESSION: NO ACUTE INTRACRANIAL ABNORMALITY. THERE IS SOME HYDROCEPHALUS THAT IS PROBABLY NORMAL PRESSURE TYPE. NO CHANGE COMPARED TO OLD EXAM.
[2018-01-16 19:51] LABS: Creatine Kinase MB 0.4 ng/mL (0.0-2.4); Troponin I <0.012 ng/mL (0.000-0.034)
[2018-01-16 20:06] LABS: Appearance,Urine Clear (Clear); Bilirubin,Urine Negative (Negative); Blood,Urine Negative (Negative); Color,Urine Yellow; Glucose,Urine (UA) Negative (Negative); Ketones,Urine Negative (Negative); Leukocyte Esterase,Urine Negative (Negative); Nitrite,Urine Negative (Negative); PH, Urine 5.5 (5.0-8.0); Protein,Urine Trace (Negative); Urobilinogen,Urine <2.0 mg/dL (<2.0)
[2018-01-16] MEDS ORDERED: NALOXONE 0.4 MG/ML 1 ML VIAL IV PRN (22:17)
[2018-01-16] MEDS ORDERED: MAGNESIUM SULFATE-D5W PMX 1 GM in DEXTROSE/WATER 1 100ML.BAG IVPB ONE (22:37)
[2018-01-17] MEDS: IPRATROPIUM-ALBUTEROL 3 ML NEB INHALATION SCH ×4 (07:17→20:32)
[2018-01-17 07:39] LABS: Glucose,Whole Blood 101 mg/dL (75-99)
[2018-01-17] MEDS: SODIUM CHLORIDE 0.9% 1,000 ML IV SCH ×2 (08:16→21:37)
[2018-01-17] MEDS: DONEPEZIL 10 MG TAB PO SCH (08:16)
[2018-01-17] MEDS: LORATADINE 10 MG TAB PO SCH (08:17)
[2018-01-17] MEDS: SERTRALINE 50 MG TAB PO SCH (08:17)
[2018-01-17 09:31] LABS: Basophils # (A) 0.1 k/uL (0-0.2); Basophils % (A) 1 %; Eosinophils # (A) 0.1 k/uL (0-0.7); Eosinophils % (A) 2 %; HCT 37.1 % (34.0-46.0); Lymphocytes # (A) 1.3 k/uL (1.0-4.8); Lymphocytes % (A) 16 %; MCH 28.4 pg (25.0-35.0); MCHC 32.4 g/dL (31.0-37.0); MCV 87.6 fL (80.0-100.0); Mean Platelet Volume 6.4; Monocytes # (A) 0.3 k/uL (0-1.0); Monocytes % (A) 4 %; Neutrophils # (A) 6.1 k/uL (1.3-7.7); Neutrophils % (A) 77 %; Platelet Count 181 k/uL (150-450); RBC 4.24 m/uL (3.80-5.40); RDW 12.7 % (11.5-15.5)
[2018-01-17 10:04] LABS: Anion Gap 6 mmol/L; Blood Urea Nitrogen 17 mg/dL (7-17); Calcium 8.2 mg/dL (8.4-10.2); Carbon Dioxide 23 mmol/L (22-30); Chloride 111 mmol/L (98-107); Glucose 105 mg/dL (74-99); Potassium 3.8 mmol/L (3.5-5.1); Sodium 140 mmol/L (137-145)
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
[2018-01-17] MEDS: INSULIN ASPART 100 UNIT/ML 1 ML 10 ML VIAL SQ SCH ×3 (12:53→21:33)
[2018-01-17 12:54] LABS: Glucose,Whole Blood 99 mg/dL (75-99)
[2018-01-17 14:12] LABS: Hemoglobin A1C 5.5 % (4.0-6.0)
--- NOTE | 2018-01-17 16:33 | P.CN ---
Psychiatric Consult - . Consult date: 01/17/18 Consult:: 01/17/18 16:21 Identification: Patient is a 67-year-old female who was brought to the emergency room by her family members, her 2 sisters with whom she lives due to increasing confusion and agitation at home. Reason for Consult: Altered mental status, confusion History of Present Illness: Patient's chart was reviewed the patient was seen and interviewed in her room no family members were present. Patient is a poor historian. Per the chart the patient has a diagnosis of dementia unknown etiology. Patient's computed tomography scan showed some atrophy no other abnormalities. Patient is reported to have a diagnosis of bipolar disorder, unclear what prior treatment the patient is had for this. The patient could not tell me why she was in the hospital or where she was. Patient had great difficulty finding words when responding to my questions [place]. In reviewing the patient's chart patient was admitted here in June of this year and at that time the patient was on Risperdal 1 mg at bedtime as well as Namenda as well as her Remeron and Zoloft and Aricept. It is unclear to me why her Risperdal and Namenda were discontinued. Patient has been continued on her Aricept Zoloft and Remeron are listed as her current home medications. Past Psychiatric History: Unclear past psychiatric history Past Medical/Surgical History: Patient has asthma, coronary artery disease, heart failure, diabetes mellitus, GERD, hyperlipidemia, seizure disorder in the past, sleep apnea, renal disease and is status post appendectomy bowel resection with an ileostomy, cholecystectomy, hernia repair, hysterectomy and joint replacement Family History: Unknown Social History: Patient's 2 sisters are her guardians and the patient lives with HER-2 sisters. Patient stated she was never and has no children Substance Use History: Unknown Mental status: Appearance/Attitude: Patient is sitting up in the hospital bed, appears in no acute distress and was cooperative Behavior: Patient did not exhibit any psychomotor agitation or retardation Speech/Language: Patient spoke in a normal volume, patient was coherent but not relevant Thought Process: Patient responded to questions and incomplete sentences that were not relevant, words were not used correctly when asked where the patient was she responded [place] the [place]" that her next word was helicopter. Thought Content: Patient did not appear to be responding to internal stimuli. Unable to assess whether the patient had any delusional or paranoid ideation. Suicidal/Homicidal Ideation: Patient responded that she was not suicidal, she did not understand when I asked whether she had any homicidal ideation. Sensorium/Cognition: Patient is alert and oriented to person only. Patient could not tell me where we were even given choices and stated [place] in the [place]. Patient thought that her 2 sisters were next to her in the room. Patient could not tell me her sisters names, she could not tell me her birthday nor her age. Mood/Affect: Patient's mood was pleasant and her affect was slightly blunted Insight/Judgment: Patient's insight and judgment are impaired Assessment: Patient's sensorium is not clouded she is not currently delirious, but has evidence of a dementia unknown etiology she is only evidence of atrophy on her computed tomography scan and has been treated with both Aricept and Namenda in the past and one would assume that her diagnosis was Alzheimer's. Patient when she was in the hospital in June was treated with both Namenda and Aricept as well as Risperdal, Remeron and Zoloft; currently the patient is only on Aricept, Remeron and Zoloft. I do not know how the patient was diagnosed with bipolar disorder, I do not know her psychiatric history. Patient is a poor historian there no family members present to provide corroboration. Diagnosis: Neurocognitive disorder, severe Plan: Patient has been cooperative with nursing staff on the unit, her appetite is fair to poor eating 25% of breakfast 50% of her lunch. Patient was on both Namenda and Aricept in June of this year I do not know why her Namenda was discontinued. Patient was also on Risperdal, Remeron and Zoloft in June and it is unclear to me why the Risperdal was discontinued. Remeron and Zoloft are both antidepressants and not the standard of care for bipolar disorder, and I have no information regarding the patient's prior psychiatric symptoms or presentation. Patient's increasing confusion and agitation most likely are secondary to her neurocognitive disorder. The antipsychotics can certainly be used in low dose to control any agitation or assaultive behavior should these be present, patient was on Risperdal in the past it is unclear to me why it was discontinued. Would recommend discontinuing the patient's Remeron as this can only add to her confusion due to its side effect profile, patient can certainly be kept on Zoloft as some of the SSRIs more specifically Celexa have been shown to decrease agitation in patients with neurocognitive disorders. Patient does not require transfer to the inpatient psychiatric service. I will sign off the case if there are any further questions or concerns please don't hesitate to contact me 01/17/18 16:23 01/17/18 16:28
[2018-01-17] MEDS: HEPARIN SODIUM,PORCINE 5,000 UNIT/ML 1 ML VIAL SQ SCH (16:58)
[2018-01-17 17:13] LABS: Glucose,Whole Blood 124 mg/dL (75-99)
[2018-01-17] MEDS ORDERED: MIRTAZAPINE 15 MG TAB PO SCH (21:00)
[2018-01-17 21:06] LABS: Glucose,Whole Blood 106 mg/dL (75-99)
[2018-01-17] MEDS ORDERED: IPRATROPIUM-ALBUTEROL 3 ML NEB INHALATION PRN (21:30)
[2018-01-17] MEDS: POTASSIUM CHLORIDE ER 20 MEQ TAB.ER PO SCH (21:33)
[2018-01-18] MEDS: HEPARIN SODIUM,PORCINE 5,000 UNIT/ML 1 ML VIAL SQ SCH ×3 (00:06→16:40)
[2018-01-18 07:08] LABS: Glucose,Whole Blood 106 mg/dL (75-99)
[2018-01-18] MEDS: IPRATROPIUM-ALBUTEROL 3 ML NEB INHALATION SCH ×4 (07:31→19:34)
[2018-01-18] MEDS: INSULIN ASPART 100 UNIT/ML 1 ML 10 ML VIAL SQ SCH ×4 (07:47→20:49)
[2018-01-18] MEDS: DONEPEZIL 10 MG TAB PO SCH (07:49)
[2018-01-18] MEDS: LORATADINE 10 MG TAB PO SCH (07:49)
[2018-01-18] MEDS: PANTOPRAZOLE 40 MG TABLET PO SCH (07:49)
[2018-01-18] MEDS: SERTRALINE 50 MG TAB PO SCH (07:49)
[2018-01-18] MEDS: ACETAMINOPHEN TAB 325 MG TAB PO PRN (07:53)
[2018-01-18 09:07] LABS: Basophils % (A) 1 %; Eosinophils # (A) 0.2 k/uL (0-0.7); Eosinophils % (A) 2 %; HCT 38.5 % (34.0-46.0); HGB 12.5 gm/dL (11.4-16.0); Lymphocytes # (A) 1.1 k/uL (1.0-4.8); Lymphocytes % (A) 17 %; MCH 28.5 pg (25.0-35.0); MCHC 32.6 g/dL (31.0-37.0); MCV 87.4 fL (80.0-100.0); Monocytes # (A) 0.3 k/uL (0-1.0); Monocytes % (A) 4 %; Neutrophils # (A) 4.9 k/uL (1.3-7.7); Neutrophils % (A) 75 %; Platelet Count 168 k/uL (150-450); RBC 4.41 m/uL (3.80-5.40); RDW 12.9 % (11.5-15.5); WBC 6.5 k/uL (3.8-10.6)
[2018-01-18 09:14] LABS: Potassium 3.9 mmol/L (3.5-5.1)
[2018-01-18] MEDS: SODIUM CHLORIDE 0.9% 1,000 ML IV SCH (11:04)
[2018-01-18 11:47] LABS: Glucose,Whole Blood 102 mg/dL (75-99)
[2018-01-18 17:12] LABS: Glucose,Whole Blood 101 mg/dL (75-99)
[2018-01-18 20:34] LABS: Glucose,Whole Blood 105 mg/dL (75-99)
[2018-01-18] MEDS: POTASSIUM CHLORIDE ER 20 MEQ TAB.ER PO SCH (21:08)
[2018-01-19] MEDS: HEPARIN SODIUM,PORCINE 5,000 UNIT/ML 1 ML VIAL SQ SCH ×4 (00:38→23:45)
[2018-01-19] MEDS: SODIUM CHLORIDE 0.9% 1,000 ML IV SCH ×2 (00:38→13:22)
[2018-01-19 06:59] LABS: Glucose,Whole Blood 93 mg/dL (75-99)
[2018-01-19] MEDS: IPRATROPIUM-ALBUTEROL 3 ML NEB INHALATION SCH ×4 (07:27→19:35)
[2018-01-19] MEDS: INSULIN ASPART 100 UNIT/ML 1 ML 10 ML VIAL SQ SCH ×4 (07:56→20:50)
[2018-01-19 08:23] LABS: Basophils # (A) 0.1 k/uL (0-0.2); Basophils % (A) 1 %; Eosinophils # (A) 0.2 k/uL (0-0.7); Eosinophils % (A) 3 %; HCT 37.2 % (34.0-46.0); HGB 12.2 gm/dL (11.4-16.0); Lymphocytes # (A) 1.3 k/uL (1.0-4.8); Lymphocytes % (A) 17 %; MCH 28.6 pg (25.0-35.0); MCHC 32.8 g/dL (31.0-37.0); MCV 87.3 fL (80.0-100.0); Mean Platelet Volume 6.5; Monocytes # (A) 0.4 k/uL (0-1.0); Monocytes % (A) 5 %; Neutrophils # (A) 5.8 k/uL (1.3-7.7); Neutrophils % (A) 74 %; Platelet Count 172 k/uL (150-450); RBC 4.26 m/uL (3.80-5.40); RDW 12.9 % (11.5-15.5); WBC 7.8 k/uL (3.8-10.6)
[2018-01-19 08:34] LABS: Calcium 9.2 mg/dL (8.4-10.2); Potassium 4.1 mmol/L (3.5-5.1)
[2018-01-19] MEDS: SERTRALINE 50 MG TAB PO SCH (09:53)
[2018-01-19] MEDS: PANTOPRAZOLE 40 MG TABLET PO SCH (09:53)
[2018-01-19] MEDS: LORATADINE 10 MG TAB PO SCH (09:53)
[2018-01-19] MEDS: DONEPEZIL 10 MG TAB PO SCH (09:53)
[2018-01-19] MEDS: ACETAMINOPHEN TAB 325 MG TAB PO PRN (10:32)
[2018-01-19 12:27] LABS: Glucose,Whole Blood 92 mg/dL (75-99)
[2018-01-19 17:28] LABS: Glucose,Whole Blood 117 mg/dL (75-99)
[2018-01-19 20:48] LABS: Glucose,Whole Blood 107 mg/dL (75-99)
[2018-01-19] MEDS: POTASSIUM CHLORIDE ER 20 MEQ TAB.ER PO SCH (20:53)
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
[2018-01-20] MEDS: SODIUM CHLORIDE 0.9% 1,000 ML IV SCH ×2 (04:17→15:57)
[2018-01-20 07:10] LABS: Glucose,Whole Blood 103 mg/dL (75-99)
[2018-01-20] MEDS: IPRATROPIUM-ALBUTEROL 3 ML NEB INHALATION SCH ×4 (07:30→19:21)
[2018-01-20 08:23] LABS: Basophils # (A) 0.1 k/uL (0-0.2); Basophils % (A) 1 %; Eosinophils # (A) 0.2 k/uL (0-0.7); Eosinophils % (A) 3 %; HCT 39.3 % (34.0-46.0); HGB 12.8 gm/dL (11.4-16.0); Lymphocytes # (A) 1.3 k/uL (1.0-4.8); Lymphocytes % (A) 20 %; MCH 28.6 pg (25.0-35.0); MCHC 32.4 g/dL (31.0-37.0); MCV 88.2 fL (80.0-100.0); Monocytes # (A) 0.4 k/uL (0-1.0); Monocytes % (A) 6 %; Neutrophils # (A) 4.6 k/uL (1.3-7.7); Neutrophils % (A) 69 %; Platelet Count 185 k/uL (150-450); RBC 4.46 m/uL (3.80-5.40); WBC 6.6 k/uL (3.8-10.6)
[2018-01-20 08:32] LABS: Calcium 9.2 mg/dL (8.4-10.2); Potassium 4.4 mmol/L (3.5-5.1)
[2018-01-20] MEDS: INSULIN ASPART 100 UNIT/ML 1 ML 10 ML VIAL SQ SCH ×4 (08:36→20:27)
[2018-01-20] MEDS: SERTRALINE 50 MG TAB PO SCH (08:38)
[2018-01-20] MEDS: LORATADINE 10 MG TAB PO SCH (08:38)
[2018-01-20] MEDS: HEPARIN SODIUM,PORCINE 5,000 UNIT/ML 1 ML VIAL SQ SCH ×2 (08:38→15:45)
[2018-01-20] MEDS: PANTOPRAZOLE 40 MG TABLET PO SCH (08:39)
[2018-01-20] MEDS: DONEPEZIL 10 MG TAB PO SCH (08:39)
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
[2018-01-20 12:25] LABS: Glucose,Whole Blood 89 mg/dL (75-99)
[2018-01-20] MEDS: risperiDONE 0.25 MG TAB PO SCH ×2 (12:42→20:25)
[2018-01-20] MEDS: MEMANTINE 5 MG TAB PO SCH (12:42)
[2018-01-20 17:04] LABS: Glucose,Whole Blood 136 mg/dL (75-99)
[2018-01-20] MEDS: POTASSIUM CHLORIDE ER 20 MEQ TAB.ER PO SCH (20:26)
[2018-01-20 20:30] LABS: Glucose,Whole Blood 105 mg/dL (75-99)
[2018-01-21] MEDS: HEPARIN SODIUM,PORCINE 5,000 UNIT/ML 1 ML VIAL SQ SCH ×4 (00:30→23:33)
[2018-01-21] MEDS: ACETAMINOPHEN TAB 325 MG TAB PO PRN (00:31)
[2018-01-21] MEDS: SODIUM CHLORIDE 0.9% 1,000 ML IV SCH (04:43)
[2018-01-21 07:15] LABS: Glucose,Whole Blood 97 mg/dL (75-99)
[2018-01-21] MEDS: IPRATROPIUM-ALBUTEROL 3 ML NEB INHALATION SCH ×4 (07:40→19:19)
[2018-01-21] MEDS: INSULIN ASPART 100 UNIT/ML 1 ML 10 ML VIAL SQ SCH ×4 (07:53→21:29)
[2018-01-21] MEDS: risperiDONE 0.25 MG TAB PO SCH ×2 (08:01→21:29)
[2018-01-21] MEDS: DONEPEZIL 10 MG TAB PO SCH (08:01)
[2018-01-21] MEDS: SERTRALINE 50 MG TAB PO SCH (08:02)
[2018-01-21] MEDS: PANTOPRAZOLE 40 MG TABLET PO SCH (08:02)
[2018-01-21] MEDS: LORATADINE 10 MG TAB PO SCH (08:02)
[2018-01-21] MEDS: MEMANTINE 5 MG TAB PO SCH (08:02)
[2018-01-21 12:17] LABS: Glucose,Whole Blood 96 mg/dL (75-99)
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
[2018-01-21 17:02] LABS: Glucose,Whole Blood 105 mg/dL (75-99)
[2018-01-21 20:54] LABS: Glucose,Whole Blood 109 mg/dL (75-99)
[2018-01-21] MEDS: POTASSIUM CHLORIDE ER 20 MEQ TAB.ER PO SCH (21:29)
[2018-01-22 07:23] LABS: Glucose,Whole Blood 99 mg/dL (75-99)
[2018-01-22] MEDS: IPRATROPIUM-ALBUTEROL 3 ML NEB INHALATION SCH ×3 (07:49→15:49)
[2018-01-22] MEDS: INSULIN ASPART 100 UNIT/ML 1 ML 10 ML VIAL SQ SCH ×2 (08:38→12:42)
[2018-01-22] MEDS: MEMANTINE 5 MG TAB PO SCH (11:03)
[2018-01-22] MEDS: DONEPEZIL 10 MG TAB PO SCH (11:03)
[2018-01-22] MEDS: risperiDONE 0.25 MG TAB PO SCH (11:04)
[2018-01-22] MEDS: HEPARIN SODIUM,PORCINE 5,000 UNIT/ML 1 ML VIAL SQ SCH (11:04)
[2018-01-22] MEDS: PANTOPRAZOLE 40 MG TABLET PO SCH (11:04)
[2018-01-22] MEDS: SERTRALINE 50 MG TAB PO SCH (11:04)
[2018-01-22] MEDS: LORATADINE 10 MG TAB PO SCH (11:04)
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
[2018-01-22 14:49] VITALS: BP 142/76; RESP 18; TEMP 97.1
[2018-01-22 15:51] VITALS: PULSE 60
[2018-01-22 16:43] LABS: Glucose,Whole Blood 127 mg/dL (75-99)
== END 2018-01-22 16:39 | disposition home or self-care (01) | DRG 92 ==
LOC: EC 18:29 → EEVIPCON 22:17 → 4MS4W 22:17 → OBSVTOIN 01-21 10:27
PROVIDERS: ADMIT Family Medicine; ATTEND Family Medicine
DX: G92 Toxic encephalopathy (principal); F05 Delirium due to known physiological condition; G91.9 Hydrocephalus, unspecified; I50.32 Chronic diastolic (congestive) heart failure; T43.025A Adverse effect of tetracyclic antidepressants, initial encounter; T43.225A Adverse effect of selective serotonin reuptake inhibitors, initial encounter; E11.9 Type 2 diabetes mellitus without complications; E78.5 Hyperlipidemia, unspecified; E86.0 Dehydration; F03.90 Unspecified dementia, unspecified severity, without behavioral disturbance, psychotic disturbance, mood disturbance, and anxiety; F31.9 Bipolar disorder, unspecified; F40.240 Claustrophobia; G40.909 Epilepsy, unspecified, not intractable, without status epilepticus; G47.30 Sleep apnea, unspecified; Z99.89 Dependence on other enabling machines and devices; I25.10 Atherosclerotic heart disease of native coronary artery without angina pectoris; I25.2 Old myocardial infarction; J45.909 Unspecified asthma, uncomplicated; K21.9 Gastro-esophageal reflux disease without esophagitis; R48.0 Dyslexia and alexia; Z79.899 Other long term (current) drug therapy; Z80.1 Family history of malignant neoplasm of trachea, bronchus and lung; Z82.49 Family history of ischemic heart disease and other diseases of the circulatory system; Z87.891 Personal history of nicotine dependence; Z90.49 Acquired absence of other specified parts of digestive tract; Z90.710 Acquired absence of both cervix and uterus; Z93.3 Colostomy status; Z96.651 Presence of right artificial knee joint; Z88.5 Allergy status to narcotic agent; Z88.2 Allergy status to sulfonamides; Z88.8 Allergy status to other drugs, medicaments and biological substances
CPT/HCPCS: 36415; 70450; 71046; 80048; 80053; 81003; 82140; 82550; 82553; 83036; 83605; 83735; 84484; 85025; 87040; 93005; 94640; 96360; 96361; 99285

== ENCOUNTER 2018-01-26 19:06 | Emergency (ER) | payer MEDICARE, OTHER ==
[2018-01-26] MEDS ORDERED: SODIUM CHLORIDE 0.9% 1,000 ML IV STA (20:25)
--- NOTE | 2018-01-26 20:33 | ED ---
General Adult HPI - General Chief complaint: Recheck/Abnormal Lab/Rx Stated complaint: no appetite/tired Time Seen by Provider: 01/26/18 19:57 Source: family Mode of arrival: wheelchair Limitations: no limitations - History of Present Illness Initial comments: 67-year-old female patient with a past medical history of Alzheimer's, dementia presents to the emergency department with his sister for multiple complaints. Patient is a poor historian. According to sister patient was discharged from the hospital 3 days ago for dehydration and altered mental status including aggression. Sister states that over the past 2 days after being discharged from the hospital patient has been sleeping an increased amount and she is concerned for infection. Sister also states that patient has not been eating or drinking much and she is concerned for infection. Sister states that patient said her food to the doctor today but did drink a bottle of Gatorade. She states that her aggression has improved. Patient has a history of dementia and bipolar disorder. Patient was recently evaluated by psychiatry inpatient and Dr. Suarez the patient's increasing confusion and agitation were most likely secondary to her neurocognitive disorder. Remeron was discontinued at that time due to side effect profile as she is already on Zoloft. Patient has no other complaints at this time including shortness of breath, chest pain, abdominal pain, nausea or vomiting, headache, or visual changes. - Related Data Home Medications Medication Instructions Recorded Confirmed Loratadine 10 mg PO DAILY 06/28/16 01/26/18 Sertraline [Zoloft] 50 mg PO DAILY 11/22/16 01/26/18 Potassium Chloride Oral Liquid 20 meq PO HS 12/25/17 01/26/18 Acetaminophen Tab [Tylenol] 650 mg PO Q4H PRN 01/16/18 01/26/18 Albuterol Nebulized [Ventolin 2.5 mg INHALATION RT-DAILY PRN 01/16/18 01/26/18 Nebulized] Albuterol Sulfate [Proair Hfa] 1 - 2 puff INHALATION Q6HR PRN 01/16/18 01/26/18 Donepezil HCl [Aricept] 10 mg PO DAILY 01/16/18 01/26/18 Previous Rx's Medication Instructions Recorded Memantine [Namenda] 5 mg PO DAILY #30 tab 01/21/18 risperiDONE [RisperDAL] 0.25 mg PO BID #60 tab 01/21/18 Cephalexin [Keflex] 500 mg PO Q8H 10 Days cap 01/26/18 Allergies Allergy/AdvReac Type Severity Reaction Status Date / Time codeine Allergy Rash/Hives Verified 01/16/18 19:30 lorazepam [From Ativan] Allergy Rash/Hives Verified 01/16/18 19:30 oxaprozin [From Daypro] Allergy Rash/Hives Verified 01/16/18 19:30 Sulfa (Sulfonamide Allergy Rash/Hives Verified 01/16/18 19:30 Antibiotics) baclofen AdvReac Unknown Psychotic Verified 01/16/18 19:30 Episode cyclobenzaprine HCl AdvReac Confusion Verified 01/16/18 19:30 [From Flexeril] Review of Systems ROS Statement: Those systems with pertinent positive or pertinent negative responses have been documented in the HPI. ROS Other: All systems not noted in ROS Statement are negative. Past Medical History Past Medical History: Asthma, Coronary Artery Disease (CAD), Heart Failure, Dementia, Diabetes Mellitus, GERD/Reflux, Hyperlipidemia, Myocardial Infarction (NH), Neurologic Disorder, Osteoarthritis (OA), Pneumonia, Renal Disease, Seizure Disorder, Sleep Apnea/CPAP/BIPAP, Vascular Disorder Additional Past Medical History / Comment(s): Bronchial asthma, seizure disorder without medication, last seizure 1970s, does not use cpap, hx falls( past head injury /broken nose d/t fall), TMJ, chronic anemia, PVD, diverticulosis, cardiac murmur, hx pancreatitis, cataracts, early onset parkinsons, occassional abdominal pain, currently has ileostomy. Pneumonia one yr ago. Diet controlled diabetes. Last Myocardial Infarction Date:: 1991 History of Any Multi-Drug Resistant Organisms: None Reported Past Surgical History: Adenoidectomy, Appendectomy, Bowel Resection, Cholecystectomy, Hernia Repair, Hysterectomy, Joint Replacement, Orthopedic Surgery, Tonsillectomy Additional Past Surgical History / Comment(s): laparotomyX2, small bowel resection X2, lysis of adhesions, sigmoid colectomy w/ colostomy, Apr 2017 3rd bowel resection with ileostomy, (APPROX 10-12 YEARS AGO HAD partial colon resection with colostomy then reversal), SILVERIO KNEE ARTHROSCOPY, Right KNEE REPLACEMENT, EGDs and colonoscopies, lipomas off back, cyst off spine, eye duct surgery. Past Anesthesia/Blood Transfusion Reactions: Previous Problems w/ Anesthesia, Motion Sickness Additional Past Anesthesia/Blood Transfusion Reaction / Comment(s): DIFFICULTY WAKING UP. CLAUSTROPHOBIC Past Psychological History: Anxiety, Bipolar Smoking Status: Never smoker Past Alcohol Use History: None Reported Past Drug Use History: None Reported - Past Family History Father Family Medical History: Cancer Additional Family Medical History / Comment(s): lung cancer Mother Family Medical History: Congestive Heart Failure (CHF), Dementia, Myocardial Infarction (NH) General Exam Limitations: no limitations General appearance: alert (Patient laying in bed, responsive, nontoxic appearing , in no acute distress.), in no apparent distress Head exam: Present: atraumatic, normocephalic, normal inspection Eye exam: Present: normal appearance. Absent: scleral icterus, conjunctival injection ENT exam: Present: normal exam, mucous membranes moist Neck exam: Present: normal inspection, full ROM. Absent: tenderness, meningismus, lymphadenopathy Respiratory exam: Present: normal lung sounds bilaterally. Absent: respiratory distress, wheezes, rales, rhonchi, stridor Cardiovascular Exam: Present: regular rate, normal rhythm, normal heart sounds. Absent: systolic murmur, diastolic murmur, rubs, gallop, clicks GI/Abdominal exam: Present: soft, normal bowel sounds. Absent: distended, tenderness, guarding, rebound, rigid Neurological exam: Present: alert, CN II-XII intact. Absent: oriented X3 ( oriented to person and place, unsure of year, sister states this is consistent with usual responses) Psychiatric exam: Present: normal affect, normal mood. Absent: agitated, anxious Course Vital Signs 01/26/18 01/26/18 19:38 21:13 Temperature 99.1 F Pulse Rate 60 59 L Respiratory 20 16 Rate Blood Pressure 128/77 124/56 O2 Sat by Pulse 95 95 Oximetry EKG Findings - EKG Comments: EKG Findings:: EKG shows a sinus bradycardia with a ventricular rate of 56, ME interval 188, QTc 389. No evidence of ST elevation or depression Medical Decision Making - Medical Decision Making 67-year-old female presents to the emergency department for a chief complaint of decreased appetite and increased amount of sleep over the past 2 days. Patient recently discharged from the hospital due to altered mental status where she did have a medication change including discontinuation of Remeron. Her sister states that her mental status is back to baseline and she is no longer aggressive. However she is concerned for infection as she has decreased appetite as well as increased sleep. On exam patient is alert and oriented 2 which her sister states is consistent with her normal baseline. Patient is a poor historian. She is well appearing and does not look toxic. Patient did eat pudding and ines crackers in the emergency department without any difficulty. CBC unremarkable, cardiac profile negative. Troponin less than 0.012. EKG shows no evidence of ST elevation or depression. Patient's lipase elevated at 438 which is consistent with past results. No abdominal tenderness. Patient has a history of a cholecystectomy. Urinalysis did show evidence of infection with positive nitrites and 20 white blood cells. Urine was cultured. On reevaluation patient is alert and cooperative. She is interactive and pleasant. Patient will be treated with Keflex. Discussed following up with primary care provider in the next 1-2 days. Both patient and her sister agree with this and are ready to go home. - Lab Data Result diagrams: 01/26/18 21:50 01/26/18 21:50 Lab Results 01/26/18 01/26/18 01/26/18 Range/Units 21:50 21:50 21:50 WBC 8.3 (3.8-10.6) k/uL RBC 4.35 (3.80-5.40) m/uL Hgb 12.3 (11.4-16.0) gm/dL Hct 39.1 (34.0-46.0) % MCV 90.0 (80.0-100.0) fL MCH 28.2 (25.0-35.0) pg MCHC 31.4 (31.0-37.0) g/dL RDW 13.1 (11.5-15.5) % Plt Count 162 (150-450) k/uL Neutrophils % 68 % Lymphocytes % 20 % Monocytes % 7 % Eosinophils % 3 % Basophils % 1 % Neutrophils # 5.6 (1.3-7.7) k/uL Lymphocytes # 1.6 (1.0-4.8) k/uL Monocytes # 0.6 (0-1.0) k/uL Eosinophils # 0.2 (0-0.7) k/uL Basophils # 0.1 (0-0.2) k/uL PT (9.0-12.0) sec INR (<1.2) APTT (22.0-30.0) sec Sodium 139 (137-145) mmol/L Potassium 3.7 (3.5-5.1) mmol/L Chloride 110 H (98-107) mmol/L Carbon Dioxide 23 (22-30) mmol/L Anion Gap 6 mmol/L BUN 21 H (7-17) mg/dL Creatinine 0.90 (0.52-1.04) mg/dL Est GFR (CKD-EPI)AfAm 77 (>60 ml/min/1.73 sqM) Est GFR (CKD-EPI)NonAf 67 (>60 ml/min/1.73 sqM) Glucose 133 H (74-99) mg/dL Calcium 8.9 (8.4-10.2) mg/dL Magnesium 1.7 (1.6-2.3) mg/dL Total Bilirubin 0.4 (0.2-1.3) mg/dL AST 18 (14-36) U/L ALT 24 (9-52) U/L Alkaline Phosphatase 97 (38-126) U/L Total Creatine Kinase 31 (30-135) U/L CK-MB (CK-2) 0.5 (0.0-2.4) ng/mL CK-MB (CK-2) Rel Index 1.6 Troponin I <0.012 (0.000-0.034) ng/mL Total Protein 6.1 L (6.3-8.2) g/dL Albumin 3.5 (3.5-5.0) g/dL Amylase 144 H (30-110) U/L Lipase 438 H (23-300) U/L Urine Color Urine Appearance (Clear) Urine pH (5.0-8.0) Ur Specific [place] (1.001-1.035) Urine Protein (Negative) Urine Glucose (UA) (Negative) Urine Ketones (Negative) Urine Blood (Negative) Urine Nitrite (Negative) Urine Bilirubin (Negative) Urine Urobilinogen (<2.0) mg/dL Ur Leukocyte Esterase (Negative) Urine WBC (0-5) /hpf Urine Bacteria (None) /hpf 01/26/18 01/26/18 Range/Units 22:50 23:00 WBC (3.8-10.6) k/uL RBC (3.80-5.40) m/uL Hgb (11.4-16.0) gm/dL Hct (34.0-46.0) % MCV (80.0-100.0) fL MCH (25.0-35.0) pg MCHC (31.0-37.0) g/dL RDW (11.5-15.5) % Plt Count (150-450) k/uL Neutrophils % % Lymphocytes % % Monocytes % % Eosinophils % % Basophils % % Neutrophils # (1.3-7.7) k/uL Lymphocytes # (1.0-4.8) k/uL Monocytes # (0-1.0) k/uL Eosinophils # (0-0.7) k/uL Basophils # (0-0.2) k/uL PT 10.4 (9.0-12.0) sec INR 1.1 (<1.2) APTT 26.0 (22.0-30.0) sec Sodium (137-145) mmol/L Potassium (3.5-5.1) mmol/L Chloride (98-107) mmol/L Carbon Dioxide (22-30) mmol/L Anion Gap mmol/L BUN (7-17) mg/dL Creatinine (0.52-1.04) mg/dL Est GFR (CKD-EPI)AfAm (>60 ml/min/1.73 sqM) Est GFR (CKD-EPI)NonAf (>60 ml/min/1.73 sqM) Glucose (74-99) mg/dL Calcium (8.4-10.2) mg/dL Magnesium (1.6-2.3) mg/dL Total Bilirubin (0.2-1.3) mg/dL AST (14-36) U/L ALT (9-52) U/L Alkaline Phosphatase (38-126) U/L Total Creatine Kinase (30-135) U/L CK-MB (CK-2) (0.0-2.4) ng/mL CK-MB (CK-2) Rel Index Troponin I (0.000-0.034) ng/mL Total Protein (6.3-8.2) g/dL Albumin (3.5-5.0) g/dL Amylase (30-110) U/L Lipase (23-300) U/L Urine Color Yellow Urine Appearance Clear (Clear) Urine pH 5.5 (5.0-8.0) Ur Specific [place] 1.014 (1.001-1.035) Urine Protein Negative (Negative) Urine Glucose (UA) Negative (Negative) Urine Ketones Negative (Negative) Urine Blood Negative (Negative) Urine Nitrite Positive H (Negative) Urine Bilirubin Negative (Negative) Urine Urobilinogen <2.0 (<2.0) mg/dL Ur Leukocyte Esterase Moderate H (Negative) Urine WBC 20 H (0-5) /hpf Urine Bacteria Many H (None) /hpf Disposition Clinical Impression: Urinary tract infection Disposition: HOME SELF-CARE Condition: Good Instructions: Urinary Tract Infection in Women (ED) Additional Instructions: Please take antibiotic as directed. Please follow-up with primary care in 1-2 days. Please return to the emergency department if you have any worsening symptoms. Prescriptions: Cephalexin [Keflex] 500 mg PO Q8H 10 Days cap Is patient prescribed a controlled substance at d/c from ED?: No Referrals: Jerry Golden DO [Primary Care Provider] - 1-2 days Time of Disposition: 23:48
--- NOTE | 2018-01-26 21:59 | XR ---
EXAMINATION TYPE: XR chest 2V DATE OF EXAM: 01/26/2018 COMPARISON: Chest radiograph 01/16/2018 HISTORY: Loss of appetite, fatigue TECHNIQUE: Frontal and lateral views of the chest are obtained. FINDINGS: There is no focal air space opacity, pleural effusion, or pneumothorax seen. The cardiac silhouette size is within normal limits. The osseous structures are intact. IMPRESSION: No acute cardiopulmonary process. No significant interval change.
[2018-01-26 22:23] LABS: Albumin 3.5 g/dL (3.5-5.0); Calcium 8.9 mg/dL (8.4-10.2); Magnesium 1.7 mg/dL (1.6-2.3); Potassium 3.7 mmol/L (3.5-5.1); Total Bilirubin 0.4 mg/dL (0.2-1.3); Total Protein 6.1 g/dL (6.3-8.2)
[2018-01-26 22:32] LABS: Basophils # (A) 0.1 k/uL (0-0.2); Basophils % (A) 1 %; Eosinophils # (A) 0.2 k/uL (0-0.7); Eosinophils % (A) 3 %; HCT 39.1 % (34.0-46.0); HGB 12.3 gm/dL (11.4-16.0); Lymphocytes # (A) 1.6 k/uL (1.0-4.8); Lymphocytes % (A) 20 %; MCH 28.2 pg (25.0-35.0); MCHC 31.4 g/dL (31.0-37.0); Mean Platelet Volume 7.2; Monocytes # (A) 0.6 k/uL (0-1.0); Monocytes % (A) 7 %; Neutrophils # (A) 5.6 k/uL (1.3-7.7); Neutrophils % (A) 68 %; Platelet Count 162 k/uL (150-450); RBC 4.35 m/uL (3.80-5.40); RDW 13.1 % (11.5-15.5); WBC 8.3 k/uL (3.8-10.6)
[2018-01-26 22:38] LABS: Creatine Kinase 31 U/L (30-135)
[2018-01-26 22:49] LABS: Creatine Kinase MB 0.5 ng/mL (0.0-2.4); Troponin I <0.012 ng/mL (0.000-0.034)
[2018-01-26 23:15] LABS: INR 1.1 (<1.2); Prothrombin Time 10.4 sec (9.0-12.0)
[2018-01-26 23:37] LABS: Appearance,Urine Clear (Clear); Bacteria,Urine Many /hpf; Bilirubin,Urine Negative (Negative); Blood,Urine Negative (Negative); Color,Urine Yellow; Glucose,Urine (UA) Negative (Negative); Ketones,Urine Negative (Negative); Leukocyte Esterase,Urine Moderate (Negative); Nitrite,Urine Positive (Negative); PH, Urine 5.5 (5.0-8.0); Protein,Urine Negative (Negative); Specific Gravity,Urine 1.014 (1.001-1.035); Urobilinogen,Urine <2.0 mg/dL (<2.0); WBC,Urine 20 /hpf (0-5)
[2018-01-26] MEDS ORDERED: CEPHALEXIN 500MG STARTER PACK 4 CAP BTL PO STA (23:48)
[2018-01-27 00:12] VITALS: BP 164/80; PULSE 58; RESP 18; TEMP 98.1
== END 2018-01-27 00:10 | disposition home or self-care (01) ==
LOC: EC 19:06
DX: N39.0 Urinary tract infection, site not specified (principal); R74.8 Abnormal levels of other serum enzymes; F32.9 Major depressive disorder, single episode, unspecified; F41.9 Anxiety disorder, unspecified; J45.909 Unspecified asthma, uncomplicated; G47.30 Sleep apnea, unspecified; Z79.899 Other long term (current) drug therapy; Z88.5 Allergy status to narcotic agent; Z88.2 Allergy status to sulfonamides; Z88.8 Allergy status to other drugs, medicaments and biological substances; Z96.651 Presence of right artificial knee joint; Z90.49 Acquired absence of other specified parts of digestive tract
CPT/HCPCS: 36415; 71046; 80053; 81001; 82150; 82550; 82553; 83690; 83735; 84484; 85025; 85610; 85730; 87040; 87086; 93005; 96360; 99284

== ENCOUNTER 2018-02-05 12:19 | Emergency (ER) | payer MEDICARE, OTHER ==
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
[2018-02-05 13:54] LABS: Appearance,Urine Clear (Clear); Bilirubin,Urine Negative (Negative); Blood,Urine Negative (Negative); Color,Urine Light Yellow; Glucose,Urine (UA) Negative (Negative); Ketones,Urine Negative (Negative); Leukocyte Esterase,Urine Negative (Negative); Nitrite,Urine Negative (Negative); Protein,Urine Negative (Negative); Specific Gravity,Urine 1.005 (1.001-1.035); Urobilinogen,Urine <2.0 mg/dL (<2.0)
[2018-02-05 14:00] LABS: Basophils # (A) 0.1 k/uL (0-0.2); Basophils % (A) 1 %; Eosinophils # (A) 0.2 k/uL (0-0.7); Eosinophils % (A) 2 %; HCT 36.2 % (34.0-46.0); HGB 11.6 gm/dL (11.4-16.0); Lymphocytes # (A) 1.3 k/uL (1.0-4.8); Lymphocytes % (A) 15 %; MCH 28.9 pg (25.0-35.0); MCHC 32.1 g/dL (31.0-37.0); Mean Platelet Volume 6.5; Monocytes # (A) 0.5 k/uL (0-1.0); Monocytes % (A) 6 %; Neutrophils # (A) 6.9 k/uL (1.3-7.7); Neutrophils % (A) 76 %; Platelet Count 167 k/uL (150-450); RBC 4.03 m/uL (3.80-5.40); RDW 13.2 % (11.5-15.5); WBC 9.1 k/uL (3.8-10.6)
[2018-02-05 14:10] LABS: Partial Thromboplastin Time 22.4 sec (22.0-30.0)
[2018-02-05 14:12] LABS: ALT 24 U/L (9-52); AST 25 U/L (14-36); Albumin 3.2 g/dL (3.5-5.0); Alcohol <10 mg/dL; Alkaline Phosphatase 96 U/L (38-126); Anion Gap 8 mmol/L; Blood Urea Nitrogen 16 mg/dL (7-17); Calcium 8.7 mg/dL (8.4-10.2); Carbon Dioxide 20 mmol/L (22-30); Chloride 111 mmol/L (98-107); Glucose 93 mg/dL (74-99); Potassium 4.3 mmol/L (3.5-5.1); Sodium 139 mmol/L (137-145); Total Bilirubin 0.3 mg/dL (0.2-1.3); Total Protein 5.9 g/dL (6.3-8.2)
[2018-02-05 14:23] LABS: Amphetamine Screen,Urine Not Detected (NotDetected); Barbiturate Screen,Urine Not Detected (NotDetected); Benzodiazepines Screen,Urine Not Detected (NotDetected); Cocaine Screen,Urine Not Detected (NotDetected); Methadone Screen, Urine Not Detected (NotDetected); Opiate Screen,Urine Not Detected (NotDetected); Oxycodone Screen, Urine Not Detected (NotDetected); Phencyclidine Screen,Urine Not Detected (NotDetected); Tricyclic Antidepressant,Urine Not Detected (NotDetected); Urn Cannabinoid Scrn Not Detected (NotDetected)
[2018-02-06 06:31] VITALS: TEMP 98.3
[2018-02-07 15:05] VITALS: BP 148/60; PULSE 55; RESP 18
== END 2018-02-07 15:00 | disposition home or self-care (01) ==
LOC: EC 12:19
DX: F91.8 Other conduct disorders (principal); G30.9 Alzheimer's disease, unspecified; F02.80 Dementia in other diseases classified elsewhere, unspecified severity, without behavioral disturbance, psychotic disturbance, mood disturbance, and anxiety; J45.909 Unspecified asthma, uncomplicated; I25.2 Old myocardial infarction; F41.9 Anxiety disorder, unspecified; F31.9 Bipolar disorder, unspecified; G47.30 Sleep apnea, unspecified; Z99.89 Dependence on other enabling machines and devices; Z96.651 Presence of right artificial knee joint; Z79.899 Other long term (current) drug therapy; Z88.5 Allergy status to narcotic agent; Z88.8 Allergy status to other drugs, medicaments and biological substances; Z88.2 Allergy status to sulfonamides
CPT/HCPCS: 36415; 93005; 80053; 85025; 85610; 85730; 81003; 80306; 99285; G0480; 80320

== ENCOUNTER 2018-03-02 15:42 | Emergency (ER) | payer MEDICARE, OTHER ==
[2018-03-02 15:48] VITALS: RESP 18
[2018-03-02] MEDS ORDERED: ZINC OXIDE 20% OINT 28.4 GM TUBE TOPICAL PRN (16:49)
--- NOTE | 2018-03-02 16:53 | ED ---
General Adult HPI - General Chief complaint: Skin/Abscess/Foreign Body Stated complaint: POSS INFECTION IN STOMA SITE Source: patient, family, RN notes reviewed Mode of arrival: wheelchair Limitations: altered mental status - History of Present Illness Initial comments: 67-year-old female presents to the emergency department for a chief complaint of rash around stoma site is 1 week. Sister states she is concerned for infection. Family member states that patient does not seem in pain. She denies patient having any fevers or chills. Patient denies any abdominal pain or pain around the stoma site. Family member also states patient has been having stools that appear more green than usual. She denies patient complaining of any abdominal pain with this. She denies any blood in the stools. Patient has no other complaints at this time including shortness of breath, chest pain, nausea or vomiting, headache, or visual changes. - Related Data Home Medications Medication Instructions Recorded Confirmed Loratadine 10 mg PO DAILY 06/28/16 02/11/18 Sertraline [Zoloft] 50 mg PO DAILY 11/22/16 02/11/18 Potassium Chloride Oral Liquid 20 meq PO HS 12/25/17 02/11/18 Acetaminophen Tab [Tylenol] 650 mg PO Q4H PRN 01/16/18 02/11/18 Albuterol Nebulized [Ventolin 2.5 mg INHALATION RT-DAILY PRN 01/16/18 02/11/18 Nebulized] Albuterol Sulfate [Proair Hfa] 1 - 2 puff INHALATION RT-Q6H PRN 01/16/18 Donepezil HCl [Aricept] 10 mg PO DAILY 01/16/18 02/11/18 Previous Rx's Medication Instructions Recorded Memantine [Namenda] 5 mg PO DAILY #30 tab 01/21/18 risperiDONE [RisperDAL] 0.25 mg PO BID #60 tab 01/21/18 Cephalexin [Keflex] 500 mg PO Q8H 10 Days cap 01/26/18 Zinc Oxide 20% Oint 1 applic TOPICAL TID PRN #454 gm 03/02/18 Allergies Allergy/AdvReac Type Severity Reaction Status Date / Time codeine Allergy Rash/Hives Verified 03/02/18 15:48 lorazepam [From Ativan] Allergy Rash/Hives Verified 03/02/18 15:48 oxaprozin [From Daypro] Allergy Rash/Hives Verified 03/02/18 15:48 Sulfa (Sulfonamide Allergy Rash/Hives Verified 03/02/18 15:48 Antibiotics) baclofen AdvReac Unknown Psychotic Verified 03/02/18 15:48 Episode cyclobenzaprine HCl AdvReac Confusion Verified 03/02/18 15:48 [From Flexeril] Review of Systems ROS Statement: Those systems with pertinent positive or pertinent negative responses have been documented in the HPI. ROS Other: All systems not noted in ROS Statement are negative. Past Medical History Past Medical History: Asthma, Coronary Artery Disease (CAD), Heart Failure, Dementia, Diabetes Mellitus, GERD/Reflux, Hyperlipidemia, Memory Impairment, Myocardial Infarction ([place]), Neurologic Disorder, Osteoarthritis (OA), Pneumonia , Renal Disease, Seizure Disorder, Sleep Apnea/CPAP/BIPAP, Vascular Disorder Additional Past Medical History / Comment(s): Bronchial asthma, seizure disorder without medication, last seizure 1970s, does not use cpap, hx falls( past head injury /broken nose d/t fall), TMJ, chronic anemia, PVD, diverticulosis, cardiac murmur, hx pancreatitis, cataracts, early onset parkinsons, occassional abdominal pain, currently has ileostomy. Pneumonia one yr ago. Diet controlled diabetes. Last Myocardial Infarction Date:: 1991 History of Any Multi-Drug Resistant Organisms: None Reported Past Surgical History: Adenoidectomy, Appendectomy, Bowel Resection, Cholecystectomy, Hernia Repair, Hysterectomy, Joint Replacement, Orthopedic Surgery, Tonsillectomy Additional Past Surgical History / Comment(s): laparotomyX2, small bowel resection X2, lysis of adhesions, sigmoid colectomy w/ colostomy, Apr 2017 3rd bowel resection with ileostomy, (APPROX 10-12 YEARS AGO HAD partial colon resection with colostomy then reversal), SILVERIO KNEE ARTHROSCOPY, Right KNEE REPLACEMENT, EGDs and colonoscopies, lipomas off back, cyst off spine, eye duct surgery. Past Anesthesia/Blood Transfusion Reactions: Previous Problems w/ Anesthesia, Motion Sickness Additional Past Anesthesia/Blood Transfusion Reaction / Comment(s): DIFFICULTY WAKING UP. CLAUSTROPHOBIC Past Psychological History: Anxiety, Bipolar Smoking Status: Never smoker Past Alcohol Use History: None Reported Past Drug Use History: None Reported - Past Family History Father Family Medical History: Cancer Additional Family Medical History / Comment(s): lung cancer Mother Family Medical History: Congestive Heart Failure (CHF), Dementia, Myocardial Infarction ([place]) General Exam Limitations: altered mental status General appearance: alert, in no apparent distress Head exam: Present: atraumatic, normocephalic, normal inspection Eye exam: Present: normal appearance, PERRL, EOMI. Absent: scleral icterus, conjunctival injection, periorbital swelling ENT exam: Present: normal exam, mucous membranes moist Neck exam: Present: normal inspection, full ROM. Absent: tenderness, meningismus, lymphadenopathy Respiratory exam: Present: normal lung sounds bilaterally. Absent: respiratory distress, wheezes, rales, rhonchi, stridor Cardiovascular Exam: Present: regular rate, normal rhythm, normal heart sounds. Absent: systolic murmur, diastolic murmur, rubs, gallop, clicks GI/Abdominal exam: Present: soft, normal bowel sounds, other (Patient has mild erythema noted around the stoma where tape contacts the skin. There are multiple outlines of erythema where the tape has been placed on different angles that are consistent with a contact irritant. There is no spreading redness or warmth noted. No evidence of a cellulitic infection. No purulent drainage from the stoma. No streaking redness. Greenish brown stool is noted in the stoma.). Absent: distended, tenderness (No tenderness on exam in all 4 quadrants), guarding, rebound, rigid Course Vital Signs 03/02/18 15:45 Temperature 98.5 F Pulse Rate 68 Respiratory 18 Rate Blood Pressure 129/67 O2 Sat by Pulse 99 Oximetry Medical Decision Making - Medical Decision Making 67-year-old female presents to the emergency department for a chief complaint of erythema around stoma site times one week. Family member states they changed the tape used on a stoma bag a few weeks ago. They deny any fevers or chills and the patient. They deny noting any purulent discharge from the stoma. Patient has not been complaining of abdominal pain. On exam no abdominal tenderness noted. There is erythema along the outline of where stoma tape is placed. As tape was recently changed patient likely has a irritation from the new tape. I discussed using Desitin cream around the stoma. I discussed changing back to the old tape previously used and caregiver agrees to this. Caregiver states they can follow up with primary care in 1-2 days. They are aware to return to the emergency department if patient has any increasing erythema, fevers, purulent drainage, or any other signs of infection or additional concerns. Disposition Clinical Impression: Rash Disposition: HOME SELF-CARE Condition: Good Instructions: Contact Dermatitis (ED) Additional Instructions: Please apply zinc oxide to area around the stoma as needed for rash. Please stop using new tape and change back to tape you used previously. Please monitor for any signs of infection such as spreading redness, purulent drainage, fevers or any other concerns and return if these occur. Follow-up with primary care for stoma recheck in one to 2 days. Prescriptions: Zinc Oxide 20% Oint 1 applic TOPICAL TID PRN #454 gm PRN Reason: Rash Is patient prescribed a controlled substance at d/c from ED?: No Referrals: Jerry Golden DO [Primary Care Provider] - 1-2 days Time of Disposition: 16:53
[2018-03-02 17:05] VITALS: BP 120/84; PULSE 83; TEMP 97.7
== END 2018-03-02 17:05 | disposition home or self-care (01) ==
LOC: EC 15:42
DX: R21 Rash and other nonspecific skin eruption (principal); J45.909 Unspecified asthma, uncomplicated; I25.10 Atherosclerotic heart disease of native coronary artery without angina pectoris; I50.9 Heart failure, unspecified; E11.9 Type 2 diabetes mellitus without complications; K21.9 Gastro-esophageal reflux disease without esophagitis; E78.5 Hyperlipidemia, unspecified; I25.2 Old myocardial infarction; F03.90 Unspecified dementia, unspecified severity, without behavioral disturbance, psychotic disturbance, mood disturbance, and anxiety; G47.30 Sleep apnea, unspecified; Z99.89 Dependence on other enabling machines and devices; F31.9 Bipolar disorder, unspecified; F41.9 Anxiety disorder, unspecified; Z79.899 Other long term (current) drug therapy; Z88.2 Allergy status to sulfonamides; Z88.5 Allergy status to narcotic agent; Z88.8 Allergy status to other drugs, medicaments and biological substances; Z96.651 Presence of right artificial knee joint
CPT/HCPCS: 99282

== ENCOUNTER 2018-03-08 12:12 | Emergency (ER) | payer MEDICARE, OTHER ==
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
[2018-03-08 14:18] LABS: Basophils # (A) 0.1 k/uL (0-0.2); Basophils % (A) 1 %; Eosinophils # (A) 0.2 k/uL (0-0.7); Eosinophils % (A) 3 %; HCT 38.9 % (34.0-46.0); HGB 12.6 gm/dL (11.4-16.0); Lymphocytes # (A) 1.4 k/uL (1.0-4.8); Lymphocytes % (A) 19 %; MCH 28.7 pg (25.0-35.0); MCHC 32.4 g/dL (31.0-37.0); MCV 88.5 fL (80.0-100.0); Mean Platelet Volume 6.8; Monocytes # (A) 0.4 k/uL (0-1.0); Monocytes % (A) 6 %; Neutrophils # (A) 5.4 k/uL (1.3-7.7); Neutrophils % (A) 71 %; Platelet Count 209 k/uL (150-450); RBC 4.39 m/uL (3.80-5.40); RDW 13.1 % (11.5-15.5); WBC 7.5 k/uL (3.8-10.6)
[2018-03-08 14:32] LABS: Potassium 3.7 mmol/L (3.5-5.1)
[2018-03-08 16:16] VITALS: BP 162/67; PULSE 88; RESP 18; TEMP 99
== END 2018-03-08 16:14 | disposition home or self-care (01) ==
LOC: EC 12:12
DX: F91.8 Other conduct disorders (principal); F41.9 Anxiety disorder, unspecified; F31.9 Bipolar disorder, unspecified; J45.909 Unspecified asthma, uncomplicated; F03.90 Unspecified dementia, unspecified severity, without behavioral disturbance, psychotic disturbance, mood disturbance, and anxiety; I25.2 Old myocardial infarction; G47.30 Sleep apnea, unspecified; Z99.89 Dependence on other enabling machines and devices; Z96.651 Presence of right artificial knee joint; Z79.899 Other long term (current) drug therapy; Z88.5 Allergy status to narcotic agent; Z88.8 Allergy status to other drugs, medicaments and biological substances; Z88.2 Allergy status to sulfonamides
CPT/HCPCS: 36415; 80048; 82075; 85025; 93005; 99285